=== PATIENT | female | born 1955 | race Caucasian/White ===

== ENCOUNTER 2024-01-19 11:58 | Inpatient (IN) | payer MEDICARE, OTHER, SELFPAY ==
[2024-01-19] VITALS (20 sets, daily range): BP systolic 77–121; BP diastolic 46–103; BMI 52.2; BMI 51.3
--- NOTE | 2024-01-19 09:54 | ED.GENMED ---
History of Present Illness
<Riana Piper PA-C - Last Filed: 01/21/24 16:40>
General
Chief Complaint: Heart Rate Problem
Source: patient
Exam Limitations: none
Time Seen by Provider: 01/19/24 09:29
Nursing documentation reviewed up to this point in time: agreed with
History of Present Illness
History of Present Illness:
68 y/o F with h/o TAVR here 2021
otherwise followed by infection control manager with [facility]
sent by Pulmonary for hypoxia and new onset afib
pt has h/o COPD and has been on nebs/inhalers for years
she recently int he past month has noticed that with simple activity, she is very out of breath and it takes her a little while to recover
she doesn't get exertional chest pain
thought maybe she had a temp las tnight but thermometer was normal
hasn't been checking pulse ox
she went to [employer] nd her sat was 87% on RA and pt was very sob
she had ekg showing afib
she has never been told she had afib before
she has had unintentional weight gain over the past 30 days but hasn't noticed edema in her legs
she is on lasix 80 mg daily
no h/o DVT/PE.
Past History
<Riana Piper PA-C - Last Filed: 01/21/24 16:40>
Past History
ED Past Medical History: Asthma, COPD, GERD, HTN, NIDDM and Valvular disease
ED Past Surgical History: Cardiac and Orthopedic
Social History
Tobacco: Non-smoker
Alcohol: Occasional
Drug: None
Personal:
Living: with family
Review of Systems
<Riana Piper PA-C - Last Filed: 01/21/24 16:40>
Review of Systems
Allergies reviewed?: Yes
All Other Systems: Not applicable
Phy Exam
<Riana Piper PA-C - Last Filed: 01/21/24 16:40>
Physical Exam
Physical Exam:
GENERAL: Moderate respiratory distress after activity, cyanotic appearance of her lips
EYE: pupils equal and reactive
NECK: Supple
ENT: o/p clr, mmm.
CARDIAC: Tachycardic, irregular, mild edema appreciated though body habitus makes it difficult
LUNGS: Tachypneic, hypoxic diminished throughout, no appreciated wheezes, some possible rales at the bases
ABDOMEN: Soft, without focal tenderness, no r/g, no cvat, normal bowel sounds
NEUROLOGICAL: Alert and oriented, no focal neuro deficits
SKIN: Warm and dry, skin intact.
MUSCULOSKELETAL: Mild edema, well perfused. neg tete's sign
PSYCH: Normal and appropriate interaction.
Scores
<Riana Piper PA-C - Last Filed: 01/21/24 16:40>
[id number] Score for Afib Stroke Risk
Age in Years (65=0, 65-74=1, >/=75=2): 65-74
Sex (Female=+1): Female
Congestive Heart Failure History (Yes=+1): Yes
Hypertension History (Yes=+1): Yes
Stroke/TIA/Thromboembolism History (Yes=+2): No
Vascular Disease History (Yes=+1): No
Diabetes Mellitus (Yes=+1): Yes
Score: 5
Anticoagulation Recommendations: Recommend anticoagulation (as validated in nonvalvular fib)
Course
<Riana Piper PA-C - Last Filed: 01/21/24 16:40>
Orders/Labs/Results
Orders:
Orders
01/19/24 09:17
Electrocardiogram (*1) Urgent
Reason for Study: Chest Pain
EKG- Treatment ONCE
01/19/24 09:44
Cardiac Monitoring- Treatment ONCE
IV Insert/Care/Rem.- Treatment PRN
O2 Therapy [RESP] Urgent
Titrate/Wean O2 to maintain O2 sat greater than (%): 93
Special Instructions: TO MAINTAIN CONTINUOUS O2 SATS >/= 93%
Pulse Ox/cont/shift [RESP] Urgent
Quantity: 1
Special Instructions: continuous pulse ox
01/19/24 09:48
CT Chest Pe Study Urgent
Comment:
Reason For Exam: new onset afib, hypoxia
01/19/24 09:50
CR Chest Portable - 1 View Urgent
Comment:
Reason For Exam: sob, hypoxia
Reason Study Needs to be Portable: Patient Unstable
01/19/24 09:51
Complete Blood Count/With Diff Urgent
Comprehensive Metabolic Panel Urgent
NT-proBNP Urgent
TSH Reflex To Free T4 Urgent
Comment: ADD ON
Troponin I Urgent
01/19/24 09:58
Diltiazem HCl [Cardizem] 10 mg IV NOW STA
01/19/24 10:54
Furosemide [Lasix] 40 mg IV NOW STA
01/19/24 11:26
Heparin 10,000 units IV NOW STA
Nursing to Place Non Medication Order As Directed
Physician Order: PTT 6 hours after initial start of Heparin infusion
Above order entered?: Yes
01/19/24 11:30
Heparin 98408 Units/250 ml 25,000 units in 250 ml IV PER PROTOCOL
Weight to be used for heparin protocol in kilograms (kg):: 146.6
Protocol:: DVT/PE
PTT Goal Range to be used:: PTT 73 to 111 seconds
Order type:: Initial
INITIAL Infusion Dose (UNITS/KG/hr) & then follow protocol:: 18 units/kg/hr
Infusion Dose in UNITS/hr & then follow protocol (UNITS/hr):: 2,000
INFUSION RATE in mL/hr & then follow protocol (mL/hr):: 20
For DVT/PE algorithm, re-bolus for low PTT?: Yes
PTT less than or equal to 64 seconds:: Re-bolus 80 units/kg (max 10,000units). Increase by 500 units/hr
(+ 5mL/hr)
PTT 64.1 to 72.9 seconds:: Re-bolus 40 units/kg (max 5,000 units). Increase by 300 units/hr
(+ 3mL/hr)
PTT 73 to 111 seconds:: Target Range. No change in rate.
PTT 111.1 to 130.9 seconds:: Decrease rate by 300 units/hr (- 3 mL/hr)
PTT 131 to 199.9 seconds:: HOLD for 1 hr. Then decrease by 400 units/hr (- 4mL/hr)
PTT greater than or equal to 200 seconds:: HOLD for 2 hrs & Notify Provider. Then decrease by 500 units/hr
(- 5mL/hr)
Lab follow-up:: Each change, PTT q6h until 2 consecutive are therapeutic. Then
PTT daily.
01/19/24 11:32
CARDIOLOGY CONSULT Routine
Consulting Provider: Chris Diallo
Was physician already notified: Yes
Reason for consult: aflutter with RVR, hypotension
01/19/24 11:38
PTT Urgent
Comment: Obtain baseline before beginning heparin infusion if not already collected
Prothrombin Time Urgent
Comment: ADD ON
01/19/24 11:45
Admit/Transfer Patient As Directed
Co-Sign Provider:
Level of Care: Inpatient admission
Assign to:: IMU- Intermediate Care
Physician / Group: John
Diagnosis: aflutter with RVR, hypotension
Reason for Hospitalization: aflutter with RVR, hypotension
Expected length of stay greater than two midnights?: Yes
ELOS- Estimated Length of Stay in days: 5
I certify the patient meets the requirements for IP care: Yes
PRN Pain Medication Management As Directed
May give lesser potent ordered pain med per pt: Yes
preference::
Protocol:: Medication orders for pain may be administered in a
manner that supports deferring to patient preference
when the pt is:
- Requesting an ordered lesser potent pain medication.
Least to most potent pain medications are defined
as: acetaminophen < NSAID < tramadol < opioids
(morphine, oxycodone, hydromorphone).
- Requesting a lesser dose of the same medication IF
ORDERED.
- Requesting a less intrusive route of administration
if both routes are prescribed by the provider (PO <
IV).
01/19/24 11:47
Add On- LAB Routine
Tests Added?: TSH with reflex to free T4
01/19/24 11:48
Code Status As Directed
Resuscitation Status: Full Code
01/19/24 14:20
Albuterol [ProAIR HFA INHALER] 2 puff INH R Q6HPRN PRN
Bisacodyl [Dulcolax] 10 mg RECTAL [id number] PRN
Dextrose 50%-Water [Dextrose 50% Syringe] 12.5 grams IV [id number] PRN
Docusate W/Senna [Senokot-S] 1 tablet PO BIDPRN PRN
Glucagon [GlucaGen] 1 mg IM PRN PRN
Polyethylene Glycol Powder [Miralax] 17 grams PO DAILYPRN PRN
01/19/24 14:20
Activity As Directed
Activity Level: With Assistance
Bedside Glucose Monitoring As Directed
Frequency: AC&HS
Additional Instructions:: Change to q6h if pt on TPN, tube feeding or not eating
Vital Signs As Directed
Frequency: Per unit guidelines
01/19/24 Dinner
2000 calorie (17 carb) Diabetic
At Your Request: Limited Participation
01/19/24 16:00
Albuterol Nebs [Ventolin Nebules] 2.5 mg INH R QID
01/19/24 16:30
Insulin Aspart Corrective Mod [Novolog Flexpen-Moderate Resistance] See Protocol SC AC
01/19/24 18:00
Aspirin Low Dose EC [Aspir Low (Enteric Coated)] 81 mg PO QPM
01/19/24 20:00
Budesonide [Pulmicort] 0.5 mg INH R BID
01/19/24 22:00
Amitriptyline [Elavil] 50 mg PO HS
01/20/24 04:26
Basic Metabolic Panel IN AM
Complete Blood Count/No Diff IN AM
Glycohemoglobin (HgbA1c) IN AM
Magnesium IN AM
01/20/24 08:00
Atorvastatin [Lipitor] 10 mg PO DAILY
Duloxetine Delayed Release [Cymbalta Delayed Release] 60 mg PO DAILY
Ferrous Sulfate [Feosol] 325 mg PO DAILY
Tiotropium [place] 2.5 Mcg [Spiriva Respimat 2.5 Mcg] 2 puff INH R DAILY
01/21/24 04:56
Basic Metabolic Panel IN AM
01/22/24 06:00
Basic Metabolic Panel IN AM
01/23/24 06:00
Basic Metabolic Panel IN AM
01/24/24 06:00
Basic Metabolic Panel IN AM
01/25/24 06:00
Basic Metabolic Panel IN AM
01/26/24 06:00
Basic Metabolic Panel IN AM
Abnormal Lab Results
01/19/24 01/19/24
09:51 11:38
RBC 5.70 H 10^6/uL
(4.20-5.40)
Hgb 18.5 H g/dL
(12.0-16.0)
Hct 56.0 H %
(37.0-47.0)
MCH 32.5 H pg
(27.0-31.0)
RDW 15.9 H %
(11.5-14.5)
MPV 10.7 H fL
(7.4-10.4)
Absolute Monos (auto) 0.8 H 10^3/uL
(0.1-0.6)
Lymphocytes % 19.9 L %
(20.5-51.1)
PT 15.0 H Sec
(11.4-14.6)
BUN 49 H mg/dl
(7-17)
Creatinine 1.2 H mg/dL
(0.6-1.0)
Glucose 132 H mg/dl
(70-99)
AST 45 H U/L
(14-36)
ALT 49 H U/L
(0-35)
Alkaline Phosphatase 169 H U/L
(38-126)
01/19/24 09:51
01/19/24 09:51
Vital Signs
Initial and Last Documented VS:
Initial Vital Signs
Temp Pulse Resp BP Pulse Ox
97.9 F 110 18 107/82 88
01/19/24 09:22 01/19/24 09:22 01/19/24 09:22 01/19/24 09:22 01/19/24 09:22
Last Documented Vital Signs
Temp Pulse Resp BP Pulse Ox
98.0 F 93 18 128/80 93
01/21/24 14:36 01/21/24 14:36 01/21/24 14:36 01/21/24 14:36 01/21/24 14:36
Maialt;Eric Cary, - Last Filed: 01/19/24 10:54>
Orders/Labs/Results
Orders:
Orders
01/19/24 09:17
Electrocardiogram (*1) Urgent
Reason for Study: Chest Pain
EKG- Treatment ONCE
01/19/24 09:44
Cardiac Monitoring- Treatment ONCE
IV Insert/Care/Rem.- Treatment PRN
O2 Therapy [RESP] Urgent
Titrate/Wean O2 to maintain O2 sat greater than (%): 93
Special Instructions: TO MAINTAIN CONTINUOUS O2 SATS >/= 93%
Pulse Ox/cont/shift [RESP] Urgent
Quantity: 1
Special Instructions: continuous pulse ox
01/19/24 09:48
CT Chest Pe Study Urgent
Comment:
Reason For Exam: new onset afib, hypoxia
01/19/24 09:50
CR Chest Portable - 1 View Urgent
Comment:
Reason For Exam: sob, hypoxia
Reason Study Needs to be Portable: Patient Unstable
01/19/24 09:51
Complete Blood Count/With Diff Urgent
Comprehensive Metabolic Panel Urgent
NT-proBNP Urgent
TSH Reflex To Free T4 Urgent
Comment: ADD ON
Troponin I Urgent
01/19/24 09:58
Diltiazem HCl [Cardizem] 10 mg IV NOW STA
01/19/24 10:54
Furosemide [Lasix] 40 mg IV NOW STA
01/19/24 11:26
Heparin 10,000 units IV NOW STA
Nursing to Place Non Medication Order As Directed
Physician Order: PTT 6 hours after initial start of Heparin infusion
Above order entered?: Yes
01/19/24 11:30
Heparin [id number] Units/250 ml 25,000 units in 250 ml IV PER PROTOCOL
Weight to be used for heparin protocol in kilograms (kg):: 146.6
Protocol:: DVT/PE
PTT Goal Range to be used:: PTT 73 to 111 seconds
Order type:: Initial
INITIAL Infusion Dose (UNITS/KG/hr) & then follow protocol:: 18 units/kg/hr
Infusion Dose in UNITS/hr & then follow protocol (UNITS/hr):: 2,000
INFUSION RATE in mL/hr & then follow protocol (mL/hr):: 20
For DVT/PE algorithm, re-bolus for low PTT?: Yes
PTT less than or equal to 64 seconds:: Re-bolus 80 units/kg (max 10,000units). Increase by 500 units/hr
(+ 5mL/hr)
PTT 64.1 to 72.9 seconds:: Re-bolus 40 units/kg (max 5,000 units). Increase by 300 units/hr
(+ 3mL/hr)
PTT 73 to 111 seconds:: Target Range. No change in rate.
PTT 111.1 to 130.9 seconds:: Decrease rate by 300 units/hr (- 3 mL/hr)
PTT 131 to 199.9 seconds:: HOLD for 1 hr. Then decrease by 400 units/hr (- 4mL/hr)
PTT greater than or equal to 200 seconds:: HOLD for 2 hrs & Notify Provider. Then decrease by 500 units/hr
(- 5mL/hr)
Lab follow-up:: Each change, PTT q6h until 2 consecutive are therapeutic. Then
PTT daily.
01/19/24 11:32
CARDIOLOGY CONSULT Routine
Consulting Provider: Chris Diallo
Was physician already notified: Yes
Reason for consult: aflutter with RVR, hypotension
01/19/24 11:38
PTT Urgent
Comment: Obtain baseline before beginning heparin infusion if not already collected
Prothrombin Time Urgent
Comment: ADD ON
01/19/24 11:45
Admit/Transfer Patient As Directed
Co-Sign Provider:
Level of Care: Inpatient admission
Assign to:: IMU- Intermediate Care
Physician / Group: John
Diagnosis: aflutter with RVR, hypotension
Reason for Hospitalization: aflutter with RVR, hypotension
Expected length of stay greater than two midnights?: Yes
ELOS- Estimated Length of Stay in days: 5
I certify the patient meets the requirements for IP care: Yes
PRN Pain Medication Management As Directed
May give lesser potent ordered pain med per pt: Yes
preference::
Protocol:: Medication orders for pain may be administered in a
manner that supports deferring to patient preference
when the pt is:
- Requesting an ordered lesser potent pain medication.
Least to most potent pain medications are defined
as: acetaminophen < NSAID < tramadol < opioids
(morphine, oxycodone, hydromorphone).
- Requesting a lesser dose of the same medication IF
ORDERED.
- Requesting a less intrusive route of administration
if both routes are prescribed by the provider (PO <
IV).
01/19/24 11:47
Add On- LAB Routine
Tests Added?: TSH with reflex to free T4
01/19/24 11:48
Code Status As Directed
Resuscitation Status: Full Code
01/19/24 14:20
Albuterol [ProAIR HFA INHALER] 2 puff INH R Q6HPRN PRN
Bisacodyl [Dulcolax] 10 mg RECTAL [id number] PRN
Dextrose 50%-Water [Dextrose 50% Syringe] 12.5 grams IV [id number] PRN
Docusate W/Senna [Senokot-S] 1 tablet PO BIDPRN PRN
Glucagon [GlucaGen] 1 mg IM PRN PRN
Polyethylene Glycol Powder [Miralax] 17 grams PO DAILYPRN PRN
01/19/24 14:20
Activity As Directed
Activity Level: With Assistance
Bedside Glucose Monitoring As Directed
Frequency: AC&HS
Additional Instructions:: Change to q6h if pt on TPN, tube feeding or not eating
Vital Signs As Directed
Frequency: Per unit guidelines
01/19/24 Dinner
2000 calorie (17 carb) Diabetic
At Your Request: Limited Participation
01/19/24 16:00
Albuterol Nebs [Ventolin Nebules] 2.5 mg INH R QID
01/19/24 16:30
Insulin Aspart Corrective Mod [Novolog Flexpen-Moderate Resistance] See Protocol SC AC
01/19/24 18:00
Aspirin Low Dose EC [Aspir Low (Enteric Coated)] 81 mg PO QPM
01/19/24 20:00
Budesonide [Pulmicort] 0.5 mg INH R BID
01/19/24 22:00
Amitriptyline [Elavil] 50 mg PO HS
01/20/24 04:26
Basic Metabolic Panel IN AM
Complete Blood Count/No Diff IN AM
Glycohemoglobin (HgbA1c) IN AM
Magnesium IN AM
01/20/24 08:00
Atorvastatin [Lipitor] 10 mg PO DAILY
Duloxetine Delayed Release [Cymbalta Delayed Release] 60 mg PO DAILY
Ferrous Sulfate [Feosol] 325 mg PO DAILY
Tiotropium [place] 2.5 Mcg [Spiriva Respimat 2.5 Mcg] 2 puff INH R DAILY
01/21/24 04:56
Basic Metabolic Panel IN AM
01/22/24 06:00
Basic Metabolic Panel IN AM
01/23/24 06:00
Basic Metabolic Panel IN AM
01/24/24 06:00
Basic Metabolic Panel IN AM
01/25/24 06:00
Basic Metabolic Panel IN AM
01/26/24 06:00
Basic Metabolic Panel IN AM
Abnormal Lab Results
01/19/24 01/19/24
09:51 11:38
RBC 5.70 H 10^6/uL
(4.20-5.40)
Hgb 18.5 H g/dL
(12.0-16.0)
Hct 56.0 H %
(37.0-47.0)
MCH 32.5 H pg
(27.0-31.0)
RDW 15.9 H %
(11.5-14.5)
MPV 10.7 H fL
(7.4-10.4)
Absolute Monos (auto) 0.8 H 10^3/uL
(0.1-0.6)
Lymphocytes % 19.9 L %
(20.5-51.1)
PT 15.0 H Sec
(11.4-14.6)
BUN 49 H mg/dl
(7-17)
Creatinine 1.2 H mg/dL
(0.6-1.0)
Glucose 132 H mg/dl
(70-99)
AST 45 H U/L
(14-36)
ALT 49 H U/L
(0-35)
Alkaline Phosphatase 169 H U/L
(38-126)
01/19/24 09:51
01/19/24 09:51
Vital Signs
Initial and Last Documented VS:
Initial Vital Signs
Temp Pulse Resp BP Pulse Ox
97.9 F 110 18 107/82 88
01/19/24 09:22 01/19/24 09:22 01/19/24 09:22 01/19/24 09:22 01/19/24 09:22
Last Documented Vital Signs
Temp Pulse Resp BP Pulse Ox
98.0 F 93 18 128/80 93
01/21/24 14:36 01/21/24 14:36 01/21/24 14:36 01/21/24 14:36 01/21/24 14:36
Maialt;Riana Piper PA-C - Last Filed: 01/21/24 16:40>
MDM/Problems Addressed
Differential Diagnosis Includes:
CHF, A-fib with RVR, PE, COPD
MDM/Problems Addressed:
68-year-old female with a history of a TAVR in 2021, COPD former smoker, no history of atrial fibrillation presents for from the pulmonary office after being told she has new onset A-fib seen on EKG today. She has been having exertional dyspnea
over the last month progressive to now where she can barely do any very minimal activity like getting dressed without being very winded. She is not checked her pulse ox but in the office today was 87% on room air. She has been followed by
infection control manager through [facility] and has not had a recent echocardiogram that she knows of.
Patient is not anticoagulated. She cannot identify when she could have gone into atrial fibrillation but she said the last month has been hard for her. She is had 30 pound weight gain despite actively trying to lose weight. 2 uses Lasix 80 mg
daily. On exam patient was very winded, cyanotic, hypoxic, diminished throughout but possibly with rales at her bases, given her body habitus difficult to appreciate edema in her legs which she likely has mild edema. Her portable chest x-ray was
not overwhelming for pulmonary edema, she may have mild CHF. Her BNP was 2700, EKG right bundle branch block, A-fib/flutter with RVR in the low 100s. Patient's heart rate variable from 100-1 30s. She is borderline hypotensive, in the low 100s.
Patient did well with a dose of 10 mg of Cardizem improving her rate to the 80s. She will have a PE study to prove no PE but she will require anticoagulation, admission for CHF in the setting of A-fib, will require echocardiogram.
<Eric Cary DO - Last Filed: 01/19/24 10:54>
*Critical Care Note
Total Time (30-74mins, 75-104mins- exclusive of procedures): 45 min
comment:
The with rates in the 130s. She was emergently given Cardizem bolus and vital signs closely monitored. Will also emergently diurese by IV as she is hypoxic. Closely monitoring respiratory status. Will hold BiPAP for now. She has not tolerated
CPAP in the past.
ED Attending Note
<Riana Piper PA-C - Last Filed: 01/21/24 16:40>
-
Portions of this chart may have been created with voice recognition software.� Occasional wrong word or��sound alike� substitutions may have occurred due to the inherent limitations of voice recognition software.
<Eric Cary, DO - Last Filed: 01/19/24 10:54>
ED Attending Note
Patient seen and examined by attending physician: Yes
I performed the substantive portion of visit, reviewed & personally made and approve the management plan that is documented in note by myself or KADY.: Yes
I performed a history and physical exam of patient and discussed management with resident, I reviewed resident's note and agree with documented findings and plan of care.: Yes
ED Attending Note:
I evaluated the patient at bedside. BNP is 2650, she does have some decreased breath sounds at the bases�will plan diuresis by IV and admission to the hospital. Her heart rate has improved after one-time dose of Cardizem. Family states that her
blood pressure 'is normally low'. She also reports a 30 pound unintentional weight gain over the past 1 month after losing 90 pounds intentionally. After Cardizem bolus was given, she is in atrial flutter on the monitor.
Discharge Plan
Departure
Patient Disposition: Admit
Date of Disposition: 01/19/24
Time of Disposition: 11:02
Admit to: IVU
Presentation/result/management discussed w/ accepting MD/DO: Hospitalist
Condition: Fair
Covid-19: Not Applicable
Discharge Problem:
Atrial fibrillation, new onset, CHF (congestive heart failure)
Interventions
Interventions:
*Risk Screen - Suicide Last Done: 01/19/24 09:22
*General Assessment Last Done: 01/19/24 09:22
*Neglect/Abuse Screening Last Done: 01/19/24 09:22
ED- Fall Risk Assessment Last Done: 01/19/24 09:49
*ED COVID-19 Vaccine History Last Done: 09/18/24 09:49
*Nursing Disposition Last Done: 01/19/24 14:24
ED- Cardiac Assessment Last Done: 01/19/24 09:49
ED- Pulmonary Assessment Last Done: 01/19/24 09:49
Discharge Date and Time
Discharge Date/Time: 01/19/24 14:24
[2024-01-19 10:10] LABS: % Eosinophils 1.9 % (0-6); % Immature Granulocytes 0.4 % (0-0.5); % Lymphocytes 19.9 % (20.5-51.1); % Monocytes 8.1 % (1.7-9.3); % Neutrophils 68.7 % (42.2-75.2); Absolute Basophils 0.1 10^3/uL (0-0.2); Absolute Eosinophils 0.2 10^3/uL (0-0.7); Absolute Lymphocytes 1.9 10^3/uL (1.2-3.4); Absolute Monocytes 0.8 10^3/uL (0.1-0.6); Absolute Neutrophils 6.4 10^3/uL (1.4-6.5); Hemoglobin 18.5 g/dL (12.0-16.0); Mean Corpuscular Hgb 32.5 pg (27.0-31.0); Mean Corpuscular Volume 98.2 fL (81.0-99.0); Mean Platelet Volume 10.7 fL (7.4-10.4); Nucleated Red Blood Cells % 0 %; Platelet Count 250 10^3/uL (130-400); Red Cell Dist. Width 15.9 % (11.5-14.5); White Blood Cell Count 9.4 10^3/uL (4.8-10.8)
[2024-01-19] MEDS: CARDIZEM 10 MG IV (10:17)
[2024-01-19 10:31] LABS: ALT (SGPT) 49 U/L (0-35); AST (SGOT) 45 U/L (14-36); Albumin 4.6 g/dl (3.5-5.0); Alkaline Phosphatase 169 U/L (38-126); Blood Urea Nitrogen 49 mg/dl (7-17); Calcium 10.1 mg/dl (8.4-10.2); Carbon Dioxide 22 mmol/L (22-30); Chloride 101 mmol/L (98-107); Estimated Creatinine Clearance 65 ml/min; Glucose 132 mg/dl (70-99); Potassium 4.5 mmol/L (3.5-5.1); Sodium 140 mmol/L (135-145); Total Bilirubin 1.2 mg/dl (0.2-1.3); Total Protein 7.6 g/dl (6.3-8.2)
[2024-01-19 10:40] LABS: NT-proBNP 2650 pg/ml; Troponin I < 0.012 ng/ml
--- NOTE | 2024-01-19 11:40 | CON.CAR ---
Addendum entered and electronically signed by Chris Diallo MD 01/19/24 17:15:
68 yo female with PMH of chronic HFPEF, TAVR, COPD, untreated CHAS, morbid obesity is admitted with CALHOUN and hypoxia. She does not report SOB at rest. Exam with irregular rhythm, no murmurs, trace LE. Cr 1.2. Tele and EKG show atrial flutter
(typical). Echo shows LVEF 70-75%, normal TAVR function, dilated RV with RV dysfunction. CT PE: no PE.
CALHOUN, hypoxia. Multifactorial with COPD and acute cor pulmonale. BP is better. Start lasix 40mg IV bid, and titrate.
Atrial flutter. New. Unknown duration. Will focus on rate control. She already took Toprol XL 100mg this AM. Will add 50mg PM dose. Start eliquis 5mg bid.
Hold home amlodipine and lisinopril to allow for Toprol XL titration.
Original Note:
Consultation
Consultation Request
Date/Time Consultation Requested: 01/19/24 1132
Date/Time Consultation Performed: 01/19/24 1145
Requesting Provider: Dr. Lopez
Performing Provider: Ngoc JUAREZ for Dr. Diallo
Reason for Consultation: atrial flutter
Medical History
-
Chief Complaint: SOB, hypoxia, arrhythmia
History of Present Illness:
68 y/o female with obesity, s/p TAVR (04/2022), HTN, untreated sleep apnea, DM, HFpEF, COPD, and restrictive lung disease who was sent by pulmonary for hypoxia (71% per family) and new onset atrial flutter. She has had SOB for about 1 month and
weight gain of about 30 lbs this summer (lost about 90 with diet this year, but then stopped dieting over the summer), and has noted BLE edema. In the ER she was given a dose of IV diltiazem. BP is on low end. CT scan shows no PE. Dr. Otero is
auditor internal. Patient is in no distress at the time of my assessment.
Past Medical History
Past Medical History: CHF, HTN, NIDDM, Valvular Disease and Other (restrictive airway disease, obesity, sleep apnea)
Social History
Tobacco: Former Smoker
Personal:
Living: With Family
Family History
Family History: Reviewed & Not Pertinent
Allergies / Home Medications
Allergy/AdvReac Type Severity Reaction Status Date / Time
amoxicillin trihydrate Allergy patient Verified 01/19/24 09:22
[From Augmentin] states
severe
nausea and
intestinal
pain
cat dander Allergy Sinus Verified 01/19/24 09:22
congestion
cigarette smoke Allergy Positive Verified 01/19/24 09:22
skin test
to tobacco
dog dander Allergy Sinus Verified 01/19/24 09:22
congestion
grass pollen Allergy Sinus Verified 01/19/24 09:22
congestion,
cough
levofloxacin [From Levaquin] Allergy GI Symptoms Verified 01/19/24 09:22
mold Allergy Sinus Verified 01/19/24 09:22
congestion,
cough
Sulfa (Sulfonamide Allergy INTESTINAL Verified 01/19/24 09:22
Antibiotics) PAIN
tree and shrub pollen Allergy Sinus Verified 01/19/24 09:22
congestion,
cough
�Medication �Instructions �Recorded �Confirmed �Type
amitriptyline 25 mg tablet 50 mg PO HS Mental Health/Anxiety 03/05/09 01/19/24 History
duloxetine 60 mg capsule,delayed 60 mg PO DAILY Mental 01/11/14 01/19/24 History
release Health/Anxiety
atorvastatin 10 mg tablet 10 mg PO DAILY High cholesterol 02/10/22 01/19/24 History
glipizide 2.5 mg tablet, extended 2.5 mg PO BID Diabetes 02/10/22 01/19/24 History
release 24 hr
metformin 500 mg tablet 500 mg PO BID Diabetes 02/10/22 01/19/24 History
metoprolol succinate 50 mg 100 mg PO DAILY Blood pressure 02/10/22 01/19/24 History
tablet,extended release 24 hr
revefenacin 175 mcg/3 mL solution 175 mcg inhalation R DAILY 02/10/22 01/19/24 History
for nebulization (Yupelri) Lung/breathing issues
tramadol 50 mg tablet 50 mg PO TIDPRN PRN MODERATE pain 02/10/22 01/19/24 History
arformoterol 15 mcg/2 mL solution 2 ml inhalation R BID 04/02/22 01/19/24 History
for nebulization (Brovana) Lung/breathing issues
aspirin 81 mg tablet,delayed 81 mg PO QPM Blood clot 04/02/22 01/19/24 History
release prevention/tx
budesonide 0.5 mg/2 mL suspension 0.5 mg inhalation R BID 04/02/22 01/19/24 History
for nebulization Lung/breathing issues
cyanocobalamin (vitamin B-12) 2,500 mcg sublingual DAILY 04/02/22 01/19/24 History
2,500 mcg sublingual tablet Supplement
(Vitamin B-12)
ferrous sulfate 325 mg (65 mg 325 mg PO DAILY Supplement 04/02/22 01/19/24 History
iron) tablet (iron)
lisinopril 20 mg tablet 20 mg PO BID Blood pressure 04/02/22 01/19/24 History
multivitamin 1 tab PO DAILY Supplement 04/02/22 01/19/24 History
calcium carbonate 500 mg-vitamin 500 mg PO DAILY Supplement 04/08/22 01/19/24 History
D3 5 mcg (200 unit) tablet (Oyster
Shell Calcium-Vitamin D3)
albuterol sulfate 90 mcg/actuation 2 puff inhalation R Q6HPRN PRN SOB 01/19/24 01/19/24 History
aerosol inhaler
amlodipine 5 mg tablet (Norvasc) 5 mg PO DAILY 01/19/24 01/19/24 History
biotin 10,000 mcg chewable tablet 10,000 mcg PO DAILY 01/19/24 01/19/24 History
(Hair, Skin and Nails (biotin))
furosemide 20 mg tablet 40 mg PO BID 01/19/24 01/19/24 History
zolpidem 10 mg tablet (Ambien) 10 mg PO HS 01/19/24 01/19/24 History
Review of Systems
-
History Source: Patient
All other systems: Negative unless noted
Constitutional: Weight Gain
Respiratory: Trouble Breathing
Physical Exam
Vital Signs
Temp Pulse Resp BP Pulse Ox
97.9 F 118 18 85/64 92
01/19/24 09:22 01/19/24 11:35 01/19/24 11:35 01/19/24 11:19 01/19/24 11:38
Lab Results
01/19/24 09:51
01/19/24 09:51
Troponin I < 0.012 ng/ml 01/19/24 09:51
Tcf-H-Twmukroktxi Pept 2650 pg/ml 01/19/24 09:51
Physical Exam
General: Well Developed, Well Nourished and No Apparent Distress
HEENT: Normocephalic and Anicteric
Respiratory: Other (on O2 by NC)
Neuro: Awake, Alert and Oriented
Psych: Calm
Impression / Plan
-
SOB, hypoxia:
-requiring O2 by NC
-likely multifactorial in this patient with CHF, obesity, lung disease, and atrial flutter.
Atrial flutter, typical:
-new diagnosis, onset unclear
-rate about 100 BPM on personal manual review. Of note, administrative fellow is reading flutter waves as QRS waves at times, making the rate look faster.
-continue metoprolol
-[id number] score is 5 for age, female, DM, HTN, and CHF. Eliquis to be initiated.
-will discuss rhythm plan
-we discussed that untreated sleep apnea is a factor in this heart rhythm, and that she should reassess treatment plan with pulmonary. She says the masks scare her. Otherwise, she should resume weight loss efforts as planned.
-check thyroid test
Vuetl-[id number] HFpEF:
-BNP elevated, weight up, CXR suggestive excess fluid, LE edema noted
-I think she needs IV lasix, but BP is low so lets check echo first
-CHF education
-patient is on Lasix 80 mg daily as OP. There has been dietary indiscretion.
Obesity:
-severe
-would benefit from weight loss moving forward- she plans to resume diet
s/p TAVR:
-stable by most recent echo, but will update
HTN:
-BP is on low end, checking echo
-on CCB, ACEI, BB as OP- hold CCB/ACEI for now.
-hopefully can continue metoprolol, but already took this AM
Data Reviewed
-
EKG: Tracing Personally Visualized and interpreted (Atrial flutter 100 BPM)
Radiology: Report Reviewed by me (CXR: Mild pulmonary edema. No definite pleural effusion.)
Medical Tests (Nuc Med, Echo etc): Report Reviewed by me (Echo 05/01/22: Estimated LVEF 65-70%. Moderate concentric left ventricular hypertrophy. Stage I diastolic dysfunction. s/p TAVR 29 mm Medtronic Evolut. Peak/mean gradients across the aortic
valve are 42/24 mmHg.)
Labs: Labs Reviewed by me
[2024-01-19 12:00] LABS: APTT 27.9 Sec (23.4-35.0)
[2024-01-19] MEDS: HEPARIN 25000 UNITS/250 ML IV ×2 (12:14→15:49)
[2024-01-19] MEDS: HEPARIN 10000 UNITS IV (12:15)
--- NOTE | 2024-01-19 12:49 | EDRN ---
heparin gtt d/c'ed. this rn d/c'ed gtt @ this time.
[2024-01-19 13:28] LABS: TSH Reflex To Free T4 4.59 uIU/ml (0.47-4.68)
[2024-01-19 13:34] LABS: INR 1.18
--- NOTE | 2024-01-19 14:11 | W.PN.UPDATE ---
Update Note
Progress Note Update
I personally performed a history and physical exam of the patient and discussed management with the resident. I reviewed the resident's note and agree with the documented findings and plan of care HPI/CC.
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 At her ticket maker office she was found to be (reportedly) in atrial fibrillation with a rapid ventricular response. She was
also hypoxemic and in the 70s on room air. In the ER the patient was found to be in atrial flutter with rapid ventricular response. She was given a dose of 10 mg of IV Cardizem. She developed asymptomatic hypotension. At the time of my
evaluation the patient denies chest pain or shortness of breath.
94/59, 120, 17, 97.9 �F, 92% 6L NC O2
Gen: NAD, AAOx3.
Eyes: EOMI, PERRLA, no scleral icterus.
Neck: supple.
CV: tachy, irreg/irreg, +S1/S2, no m/r/g.
Resp: Diffusely coarse breath sounds which are likely upper airway transmission, faint rales in the bases
Abd: +BS, soft, NT, ND
Skin: No rashes. 2+ B/L LE edema
Neuro: CN 2-12 intact, non-focal.
Psych: Normal mood and affect.
Lab Results
01/19/24 01/19/24
09:51 11:38
WBC 9.4
RBC 5.70 H
Hgb 18.5 H
Hct 56.0 H
MCV 98.2
MCH 32.5 H
MCHC 33.0
RDW 15.9 H
Plt Count 250
MPV 10.7 H
Abs Immat Gran (auto) 0.0
Absolute Neuts (auto) 6.4
Absolute Lymphs (auto) 1.9
Absolute Monos (auto) 0.8 H
Absolute Eos (auto) 0.2
Absolute Basos (auto) 0.1
Immature Gran % 0.4
Neutrophils % 68.7
Lymphocytes % 19.9 L
Monocytes % 8.1
Eosinophils % 1.9
Basophils % 1.0
Nucleated RBC % 0
PT 15.0 H
INR 1.18
APTT 27.9
Sodium 140
Potassium 4.5
Chloride 101
Carbon Dioxide 22
BUN 49 H
Creatinine 1.2 H
Estimated Creat Clear 65
eGFR 48.70
Glucose 132 H
Calcium 10.1
Total Bilirubin 1.2
AST 45 H
ALT 49 H
Alkaline Phosphatase 169 H
Troponin I < 0.012
Rpv-Y-Vyjecxwrtsg Pept 2650
Total Protein 7.6
Albumin 4.6
TSH (Reflex) 4.59
CTA chest: No evidence of pulmonary embolism or active pulmonary process. Bilateral hilar lymphadenopathy. It is difficult to evaluate for hilar lymphadenopathy on the previous CT from 09/09/2022 given the absence of intravenous contrast on this
exam. Mediastinal lymphadenopathy is unchanged. Dilated pulmonary arterial system which can be seen in the setting of pulmonary arterial hypertension.
Atrial flutter with rapid ventricular response:
-Complicated by hypotension
-On reevaluation the patient systolic blood pressure had been in the 100s on a few readings. Heart rate was 90s to 100s.
-Cardiology to see
-Check echocardiogram
-As patient without acute pulmonary embolism continue stroke prevention anticoagulation with Eliquis 5 mg twice daily
-Will discuss amiodarone with cardiology
-proBNP 2650. Patient has acute hypoxemic respiratory failure. Patient was not on oxygen prior to admission. She has underlying COPD as well as morbid obesity due to excess calories. She likely has CHAS/OHS. All of these factors are contributing
to her acute hypoxemic respiratory failure. She also likely has acute CHF due to atrial flutter with a right ventricular response. It is difficult to diurese the patient with her current systolic blood pressures ranging 80-100s.
-daily wts, I/Os
--- NOTE | 2024-01-19 14:49 | HPS.HSE ---
Family Physician
-
Family Physician: Sanjay Carrera
Chief Complaint
-
Shortness of Breath, Afib (new onset)
History of Present Illness
Carlos Lindsey is a 68 year old female with a past medical history of COPD, HTN, HLD, NIDDM, CHAS, valvular Disease s/p TAVR 2021 and Anxiety who presented to the ED after an ECG reading at a neurology stroke physician appointment demonstrated Afib/Flutter.
She reports that over the last month her family has been noticing a decline in her health, and extra swelling in her legs. She herself reports that only in the last few weeks she has been feeling more winded and more unstable on her feet. Her
, who was bedside during the encounter, endorsed a blue discoloration of the lips during episodes of 'not feeling well'. During these times, blood pressure readings would indicate low pressure and a fast pulse. Though, the patient herself did
not notice any chest pain, palpitations, lightheadedness or presyncope/syncope during these events. Of note, the patient reports a 90lb weight loss over the past 2 years with a ketogenic diet; however, after recently stopping the diet and reverting
to eating ad jesse, she has since gained back 30lbs in only a few months. There have been no new changes to medications and no recent illness. On further questioning, she admits to having CHAS and being noncompliant with CPAP machine for many years.
Concerned for the episodes of tachycardia and increasing shortness of breath, she had scheduled a visit to the neurology stroke physician which led to the ECG demonstrating 'Afib'.
In the ED she was found to be in A Flutter w/ RVR and hypoxic on RA into the 70s. She was given 10mg IV Cardizem after which she developed asymptomatic hypotension. She was put on 6L NC with saturations above 92%.
Medical History
Past Medical History
Past Medical History: Reports COPD, CVA (CT Head findings suggestive of prior CVA without hositalization/tx), HTN, NIDDM and Other (Hyperlipidemia)
Past Surgical History: Reports Cardiac (TAVR 2021)
Social History
Tobacco: Former Smoker (quit 1999, had been smoking >1pack/day since she was 10)
Alcohol: Occasional
Drug: None
Personal:
Living: With Family
Family History
Family History: Not pertinent
Allergies / Home Medications
Allergies reflects when Allergies were last updated in [facility].
Home Medications with original date entered in [facility]
Allergy/Medication List:
Allergies
Allergy/AdvReac Type Severity Reaction Status Date / Time
amoxicillin trihydrate Allergy patient Verified 01/19/24 09:22
[From Augmentin] states
severe
nausea and
intestinal
pain
cat dander Allergy Sinus Verified 01/19/24 09:22
congestion
cigarette smoke Allergy Positive Verified 01/19/24 09:22
skin test
to tobacco
dog dander Allergy Sinus Verified 01/19/24 09:22
congestion
grass pollen Allergy Sinus Verified 01/19/24 09:22
congestion,
cough
levofloxacin [From Levaquin] Allergy GI Symptoms Verified 01/19/24 09:22
mold Allergy Sinus Verified 01/19/24 09:22
congestion,
cough
Sulfa (Sulfonamide Allergy INTESTINAL Verified 01/19/24 09:22
Antibiotics) PAIN
tree and shrub pollen Allergy Sinus Verified 01/19/24 09:22
congestion,
cough
Review of Systems
-
History Source: Patient and Family
A 12 point ROS was completed and negative except as noted: Yes
Constitutional: Reports Weight Gain; Denies Fever, Night Sweats or Chills
EENT: Reports No Symptoms
Respiratory: Reports Trouble Breathing
Cardiac: Reports No Symptoms
Abdomen/GI: Reports No Symptoms
: Reports No Symptoms
Musculoskeletal: Reports No Symptoms
Skin: Reports No Symptoms
Neurological: Reports No Symptoms
Endocrine: Reports No Symptoms
Hematologic/Lymphatic: Reports No Symptoms
Psych: Reports No Symptoms
Physical Exam
Vital Signs
Vital Signs
Temp Pulse Resp BP Pulse Ox
97.9 F 100 20 114/78 93
01/19/24 09:22 01/19/24 14:20 01/19/24 14:20 01/19/24 14:00 01/19/24 14:24
Physical Exam
General: Well Developed, Well Nourished, No Apparent Distress, Comfortable, Conversant and Morbidly Obese
HEENT: NormoCephalic, Anicteric, Moist mucous membranes, Atraumatic, PERRLA and [place] Conjunctivae
Respiratory: Rhonchi
Cardiac: S1/S2, Irregular Rhythm and Tachycardia; No Murmur
Breast: Deferred by me
GI: Soft, Non Tender, Non Distended and Normal Bowel Sounds
Rectal: Deferred by Provider
Genito-urinary: Deferred by me
Musculoskeletal: No Clubbing, No Cyanosis, Edema, Left Lower Extremity and Edema, Right Lower Extremity
Neuro: Awake, Alert, Oriented, Nonfocal/grossly intact and No Sensory Deficits
Psych: Calm
Laboratory Results
-
01/19/24 09:51
01/19/24 09:51
Laboratory Results
PT 15.0 Sec (11.4-14.6) H 01/19/24 11:38
INR 1.18 01/19/24 11:38
APTT 27.9 Sec (23.4-35.0) 01/19/24 11:38
Total Bilirubin 1.2 mg/dl (0.2-1.3) 01/19/24 09:51
AST 45 U/L (14-36) H 01/19/24 09:51
ALT 49 U/L (0-35) H 01/19/24 09:51
Alkaline Phosphatase 169 U/L (38-126) H 01/19/24 09:51
Troponin I < 0.012 ng/ml 01/19/24 09:51
Impression/Plan
-
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
#New onset A Flutter w/ RVR
- initially hypotensive, pressures better now in the 100s
- Echocardiogram demonstrates EF 70-75%, normal TAVR function, dilated RV with RV dysfunction.
- CT Chest showed no evidence of PE.
- Begin Lasix 40mg IV BID, trend daily weights, I/Os
- Recommendation to focus on rate control; Start on Toprol XL 100mg AM and 50mg PM. Hold home antihypertensives Lisinopril/Amlodipine to allow titration of Toprol
- Start Eliquis 5mg BID for PPx
#COPD - c/w home Spiriva, Nebulizers
#HTN - hold home medications as above.
#HLD - c/w statin
#NIDDM - LDISS while here. Hold home PO meds.
#Anxiety - c/w home Duloxetine.
#Dispo - IMU
#Diet - Diabetic Diet
#DVT PPx - On Eliquis
#Code Status - Full Code
--- NOTE | 2024-01-19 15:05 | CARDSERVLU ---
Echocardiogram with Lumason completed after protocol screening completed. Allergies verified.
Patent IV site: __R AC___
IV site flushed with 0.9% NaCl pre and post administration.
Diluted bolus method utilized to enhance visualization of ventricular kurtz.
Total volume given: ___2.5_ mL
Patient tolerated all procedures well without complications.
[2024-01-19 16:05] LABS: Hematocrit 49.5 % (37.0-47.0); Hemoglobin 16.4 g/dL (12.0-16.0); Mean Corp Hgb Conc. 33.1 g/dL (33.0-37.0); Mean Corpuscular Hgb 31.5 pg (27.0-31.0); Mean Corpuscular Volume 95.2 fL (81.0-99.0); Mean Platelet Volume 11.2 fL (7.4-10.4); Platelet Count 223 10^3/uL (130-400); Red Cell Dist. Width 15.7 % (11.5-14.5); White Blood Cell Count 8.1 10^3/uL (4.8-10.8)
[2024-01-19 16:17] LABS: APTT 29.2 Sec (23.4-35.0)
[2024-01-19] MEDS: VENTOLIN NEBULES 2.5 MG INH ×2 (16:21→20:13)
[2024-01-19] MEDS: ASPIR LOW (ENTERIC COATED) 81 MG PO (17:20)
[2024-01-19] MEDS: LASIX 40 MG IV (17:20)
[2024-01-19] MEDS: NOVOLOG FLEXPEN-MODERATE RESISTANCE SC (18:10)
[2024-01-19 18:14] LABS: Glucose - Point of Care 73 mg/dl (70-99)
[2024-01-19] MEDS: PULMICORT 0.5 MG INH (20:13)
--- NOTE | 2024-01-19 20:30 | PTCARENOTE ---
Assumed care of patient at 1900, nursing assessment completed and as documented. Patient on 6L NC, humidifier placed by RT, remains in uncontrolled Afib on monitor rates 100-130's. Received patient on heparin gtt, order to d/c gtt at 1900 following
administration of first dose of 5mg PO Eliquis. Eliquis given - see MAR, heparin gtt d/c'd at this time. See worklist for charting. VSS, call avitia within reach, care ongoing.
[2024-01-19] MEDS: TOPROL XL 50 MG PO (20:38)
[2024-01-19] MEDS: ELIQUIS 5 MG PO (20:38)
[2024-01-19] MEDS: ELAVIL 50 MG PO (20:38)
[2024-01-19 22:50] LABS: Glucose - Point of Care 134 mg/dl (70-99)
[2024-01-20] VITALS (12 sets, daily range): BP systolic 87–115; BP diastolic 65–88; BMI 50.3
[2024-01-20] MEDS: MELATONIN 5 MG PO (00:57)
[2024-01-20 04:41] LABS: Hematocrit 47.9 % (37.0-47.0); Hemoglobin 15.9 g/dL (12.0-16.0); Mean Corp Hgb Conc. 33.2 g/dL (33.0-37.0); Mean Corpuscular Hgb 31.4 pg (27.0-31.0); Mean Corpuscular Volume 94.5 fL (81.0-99.0); Mean Platelet Volume 10.5 fL (7.4-10.4); Platelet Count 229 10^3/uL (130-400); Red Blood Cell Count 5.07 10^6/uL (4.20-5.40); Red Cell Dist. Width 15.7 % (11.5-14.5); White Blood Cell Count 8.8 10^3/uL (4.8-10.8)
[2024-01-20 05:20] LABS: Blood Urea Nitrogen 46 mg/dl (7-17); Calcium 9.2 mg/dl (8.4-10.2); Carbon Dioxide 21 mmol/L (22-30); Chloride 104 mmol/L (98-107); Estimated Creatinine Clearance 76 ml/min; Glucose 118 mg/dl (70-99); Potassium 3.9 mmol/L (3.5-5.1); Sodium 140 mmol/L (135-145); eGFR > 60.00
[2024-01-20] MEDS: VENTOLIN NEBULES 2.5 MG INH ×4 (07:21→20:13)
[2024-01-20] MEDS: SPIRIVA RESPIMAT 2.5 MCG 2 PUFF INH (07:21)
[2024-01-20] MEDS: PULMICORT 0.5 MG INH ×2 (07:21→20:13)
[2024-01-20 08:04] LABS: Glucose - Point of Care 115 mg/dl (70-99)
--- NOTE | 2024-01-20 08:40 | W.PN.HOSP.TC ---
Addendum entered and electronically signed by Jeffry Lopez MD 01/20/24 09:30:
I saw and evaluated the patient. I reviewed the resident�s note and agree with findings and plan as documented in the resident�s note.
Patient currently denies chest pain or shortness of breath.
94/69, 98, 18, 97.5 �F, 89% 6L NC O2
Gen: NAD, AAOx3.
Eyes: EOMI, PERRLA, no scleral icterus.
Neck: supple.
CV: tachy, regular rhythm, +S1/S2, no m/r/g.
Resp: CTAB
Abd: +BS, soft, NT, ND
Skin: No rashes. 1-2+ B/L LE edema
Neuro: CN 2-12 intact, non-focal.
Psych: Normal mood and affect.
Echo: Contrast was used. Hyperdynamic left ventricular systolic function. LV ejection fraction is 70- 75%.
Mild mitral stenosis.
s/p TAVR 29 mm Medtronic Evolut. Peak/mean gradients across the aortic valve
are 8/5 mmHg. No aortic regurgitation.
Enlarged right ventricular size. Reduced right ventricular systolic function.
Septal flattening in systole and diastole consistent with RV pressure and
volume overload.
Mild tricuspid regurgitation.
Moderately elevated PASP. Estimated pulmonary artery pressure of 45-50 mmHg
assuming a right atrial pressure of 15 mmHg.
Compared to 05/01/22: RV dysfunction is now present. PASP was unable to be
measured on prior study.
CTA chest: No evidence of pulmonary embolism or active pulmonary process. Bilateral hilar lymphadenopathy. It is difficult to evaluate for hilar lymphadenopathy on the previous CT from 09/09/2022 given the absence of intravenous contrast on this
exam. Mediastinal lymphadenopathy is unchanged. Dilated pulmonary arterial system which can be seen in the setting of pulmonary arterial hypertension.
Atrial flutter (new onset) with rapid ventricular response:
-Complicated by hypotension
-ehco above and with RV failure
-cont IV Lasix and BB even with SBPs 90s, discussed with cardiology
-if patient with persistent tachycardia and hypotension, may need to load with digoxin
-cont Eliquis
-proBNP 2650. Patient has acute hypoxemic respiratory failure. Patient was not on oxygen prior to admission. She has underlying COPD as well as morbid obesity due to excess calories. She likely has CHAS/OHS. All of these factors are contributing
to her acute hypoxemic respiratory failure. She also likely has acute HFpEF due to atrial flutter with a right ventricular response. She also has pulmonary hypertension and right-sided heart failure which is contributing to her acute hypoxemic
respiratory failure. Considering the patient's multifactorial acute hypoxemic respiratory failure, some of which is a primarily pulmonary in nature, reasonable to consult pulmonary.
-daily wts, I/Os
Morbid obesity due to excess calories:
-Encourage weight loss
-Affects all aspects of care
Total time spent on today's encounter was 50 minutes which included time spent in counseling the patient/family regarding diagnosis and treatment plan as listed above, goals of care, and symptom management. Case was discussed with nursing staff,
specialists, and care coordinators/case management. All labs and imaging personally reviewed by me. Remainder the time spent in detailed review of previous records, lab data, imaging, and other medical provider documentation.
Original Note:
Today's Communication/Plan
-
C/w IV lasix, rate control with Toprol XL, try to wean O2 as tolerated.
Assessment / Plan
Assessment / Plan
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
#New onset A Flutter w/ RVR
- initially hypotensive, systollic pressures better now in the 100s
- Echocardiogram demonstrates EF 70-75%, normal TAVR function, dilated RV with RV dysfunction.
- CT Chest showed no evidence of PE.
- C/w Lasix 40mg IV BID, trend daily weights, I/Os
- Recommendation to focus on rate control; Start on Toprol XL 100mg AM and 50mg PM. Hold home Lisinopril/Amlodipine to allow titration of Toprol (HR have been 90s-120s, with >100bpm readings most at night, possible consequence of CHAS).
- C/w Eliquis 5mg BID for PPx
#Acute Hypoxic Respiratory Failure
- O2 saturations on admission in the 70s on RA. Requiring 6L NC to maintain saturations >92%
- TRy to wean O2 requirements as tolerated to maintain saturations 88-92%
#COPD - c/w home Spiriva, Nebulizers
#HTN - hold home antihypertensives as above.
#HLD - c/w statin
#NIDDM - LDISS while here. Hold home PO meds.
#Anxiety - c/w home Duloxetine, amitriptyline
#Dispo - IMU
#Diet - Diabetic Diet
#DVT PPx - On Eliquis
#Code Status - Full Code
Anticipated Discharge: Within 24 hours
Subjective/Interval History
-
No acute events overnight. She is currently complaining of muscle spasms in the back. No symptoms of chest pain, SOB, palpitations, or dizziness.
Objective Data
-
Labs:
Laboratory Results
01/20/24
04:26
WBC 8.8
Hgb 15.9
Hct 47.9 H
Plt Count 229
Sodium 140
Potassium 3.9
Chloride 104
Carbon Dioxide 21 L
BUN 46 H
Creatinine 1.0
Glucose 118 H
Calcium 9.2
Vital Signs:
Vital Signs
Temp Pulse Resp BP Pulse Ox
97.4 F 98 18 94/69 89
01/20/24 04:35 01/20/24 06:27 01/20/24 06:27 01/20/24 06:27 01/20/24 02:02
I&O
01/19/24 01/20/24 01/21/24
06:59 06:59 06:59
Output Total 550 / 550
Balance -550 / -550
Review of Systems
-
History Source: Patient
All other systems: Reviewed and negative
Musculoskeletal: Reports Muscle Pain (Lower back spasms/pain)
Physical Exam
-
General: Well Developed, Well Nourished, No Apparent Distress, Comfortable, Conversant and Morbidly Obese
HEENT: Normocephalic, Atraumatic, Moist Mucous Membranes, [place] Conjunctivae and PERRLA
Respiratory: Rales (BL Lower lung lui, improved from yesterday)
Cardiac: S1/S2, Irregular Rhythm and Tachycardic
Breast: Deferred by me
GI: Soft, Nontender, Nondistended and Normal Bowel Sounds
Rectal: Deferred by Provider
Genito-urinary: Clear Urine
Musculoskeletal: No Clubbing, No Cyanosis, Edema, Right Lower Extrem and Edema, Left Lower Extrem
Neuro: Awake, Alert, Oriented, No Motor Deficits and Nonfocal/Grossly Intact
Psych: Calm
--- NOTE | 2024-01-20 08:45 | W.PN.CD ---
Today's Communication / Plan
-
continue attempts at rate control may need to add dig
continue diuresis
Impression / Plan
-
SOB, hypoxia:
-requiring O2 by NC
-likely multifactorial in this patient with CHF, obesity, COPD, untreated CHAS, and atrial flutter.
Atrial flutter, typical:
-new diagnosis, onset unclear
-continue metoprolol, dose increased
-may need to add digoxin if bp remains low
-[id number] score is 5 for age, female, DM, HTN, and CHF. Eliquis to be initiated.
-She isn't a great candidate for rhythm control, morbid obesity, untreated sleep apnea, COPD.
-She should resume weight loss efforts as planned, f/u for a treatment plan for CHAS
thyroid normal
Dykgf-xx-rkqappk HFpEF with concurrent cor pulmonale:
-BNP elevated, weight up, CXR suggestive excess fluid, LE edema noted
-Cotninue IV lasix, intensive monitoring
-CHF education
-patient is on Lasix 80 mg daily as OP. There has been dietary indiscretion.
Obesity:
-severe
-would benefit from weight loss moving forward- she plans to resume diet
s/p TAVR:
-stable by echo,
HTN:
-BP is on low end,
-on CCB, ACEI, BB as OP- hold CCB/ACEI for now.
-hopefully can continue metoprolol, but already took this AM
Data:
TTE: 01/19/24 CONCLUSIONS
Contrast was used.
Hyperdynamic left ventricular systolic function. LV ejection fraction is 70-
75%.
Mild mitral stenosis.
s/p TAVR 29 mm Medtronic Evolut. Peak/mean gradients across the aortic valve
are 8/5 mmHg. No aortic regurgitation.
Enlarged right ventricular size. Reduced right ventricular systolic function.
Septal flattening in systole and diastole consistent with RV pressure and
volume overload.
Mild tricuspid regurgitation.
Moderately elevated PASP. Estimated pulmonary artery pressure of 45-50 mmHg
assuming a right atrial pressure of 15 mmHg.
Compared to 05/01/22: RV dysfunction is now present. PASP was unable to be
measured on prior study.
Physical Exam
Vital Signs/Labs
Vital Signs
Temp Pulse Resp BP Pulse Ox
97.4 F 98 18 94/69 89
01/20/24 04:35 01/20/24 06:27 01/20/24 06:27 01/20/24 06:27 01/20/24 02:02
01/19/24 01/20/24 01/21/24
06:59 06:59 06:59
Actual Weight 141.3 kg
01/20/24 04:26
01/20/24 04:26
PT 15.0 Sec (11.4-14.6) H 01/19/24 11:38
INR 1.18 01/19/24 11:38
APTT 29.2 Sec (23.4-35.0) 01/19/24 15:43
Magnesium 2.0 mg/dl (1.6-2.3) 01/20/24 04:26
01/19/24
09:51
Gjq-L-Dpokiddnqyt Pept 2650
LAB Results
01/19/24
09:51
Troponin I < 0.012
Physical Exam
Constitutional: No acute distress
Cardiovascular: Rhythm/rate is irregular, Pedal edema present (doughy trace), Systolic murmur present and S1S2 is normal
Respiratory: Respiratory effort normal, Lungs clear to auscul., Wheeze Absent and Crackles Absent
Neuro/Psych: AO x 3
Data Reviewed
-
Date of Service: January 20, 2024
Medical Decision Making: Review of Case with other Provider (d/w Dr Lopez, needs diuresis and rate control will f/u on rate later)
[2024-01-20 09:05] LABS: Glycohemoglobin (HgbA1c) 6.6 % (4.0-5.6)
[2024-01-20] MEDS: NOVOLOG FLEXPEN-MODERATE RESISTANCE SC ×3 (09:21→17:44)
[2024-01-20] MEDS: FEOSOL 325 MG PO (09:22)
[2024-01-20] MEDS: CYMBALTA DELAYED RELEASE 60 MG PO (09:22)
[2024-01-20] MEDS: TOPROL XL 100 MG PO (09:22)
[2024-01-20] MEDS: LIPITOR 10 MG PO (09:22)
[2024-01-20] MEDS: ELIQUIS 5 MG PO ×2 (09:22→21:07)
[2024-01-20] MEDS: DESENEX/MITRAZOL/ZEASORB 1 APPLIC TOPICAL ×2 (09:22→21:12)
--- NOTE | 2024-01-20 09:29 | PTCARENOTE ---
Assumed care of patient this AM. Patient AAO x3. AFIB on monitor, HR up to 120's. Patient is on 6L o2 spo2 92%. Will attempt to wean o2. 88% is acceptable as per resident. Lungs diminished with coarse breath sounds. Patient is orthopneic and
SOB on exertion. Currently patient is in chair eating breakfast. Call avitia in reach. Will continue to monitor.
[2024-01-20] MEDS: LASIX 40 MG IV ×2 (11:59→16:49)
[2024-01-20] MEDS: FLUSH (NSS) 2 FLUSH IV (12:00)
[2024-01-20 13:49] LABS: Glucose - Point of Care 119 mg/dl (70-99)
[2024-01-20 14:22] LABS: Hepatitis C Antibody Negative (Negative)
--- NOTE | 2024-01-20 14:44 | W.PN.UPDATE ---
Update Note
Progress Note Update
Patient feeling improved, but HR is still around 120 BPM and BP on low end. Discussed with Dr. Allen and we will initiate digoxin.
--- NOTE | 2024-01-20 15:10 | CON.PUL ---
Consultation
Consultation Request
Date/Time Consultation Requested: 01/20/2024 - 140
Date/Time Consultation Performed: 01/20/2024 - 150
Requesting Provider: Dr. Lowry
Performing Provider: Dr. Meyers
Reason for Consultation: CHAS/Acute hypoxia
Medical History
-
Chief Complaint: SOB and new onset A-fib
History of Present Illness:
68-year-old female former tobacco smoker with a past medical history of hypertension, hyperlipidemia, DM type II, severe CHAS intolerant to CPAP, reported history of COPD/asthma, aortic stenosis s/p TAVR, CVA and anxiety who presents with SOB + and
new onset A-fib. Patient unable to even walk a few steps without feeling shortness of breath. Her health has been declining over the last month with swelling in her legs and worsening SOB. She has also been having blue discoloration of her lips
lately. She had previously lost weight with a ketogenic diet but had stopped dieting and reverted back to her old eating habits and has gained 30 pounds in the last few months. She had seen her airport screener recently, Dr. Smith in [place], who
performed EKG and found the patient to be in atrial fibrillation. Patient then sent here to the ER for further evaluation. In the ER she was afebrile to 97.9 �F, pulse rate 110, breathing at 18 breaths/min, BP 107/82 and saturating 88% on room
air, which improved to 92% with 6 L/min. Labs showed elevated Hb of 18.5, normal WBC at 9.4, creatinine 1.2, proBNP elevated at 2650, troponin negative at <0.012, and TSH normal at 4.59. CXR showed mild pulmonary edema, and CTA chest showed no
acute PE or active pulmonary process, although there was bilateral hilar lymphadenopathy. Patient given 10 mg IV Cardizem and admitted to the IMU for further care. Pulmonary service now consulted for additional management/recommendations.
When I saw the patient, she was laying in bed in no acute distress, awake, alert and answering my questions appropriately. She says she has a history of severe CHAS which was worked up at [facility]. She is intolerant to CPAP as she gets
very anxious and is not even willing to try it again. She is interested in learning more about the inspire device. She has never been worked up for this device by ENT yet. She has even tried different CPAP masks including nasal cannula/nasal CPAP
mask to no avail. She is currently saturating 94% on 6 L/min nasal cannula, heart rate 103 and BP 98/77. She follows with a airport screener at [place] with Dr. Smith. She says that she believes she has a history of asthma and that is why she is
on nebulized inhalers including Brovana, Yupelri + budesonide. She currently denies chest pain, ROOT, abdominal pain, nausea, fevers or chills.
PMHx: Reported history of COPD/asthma, hypertension, hyperlipidemia, DM type II, reported history of CHAS (severe per patient) intolerant to CPAP, aortic stenosis s/p TAVR, anxiety, history of CVA, former tobacco smoker (quit 1999)
PSHx: TAVR (04/2022), D&C, bariatric sleeve (12/2012), left knee replacement (2008), right knee arthroplasty (2013)
Past Medical History
Past Medical History: Other (Above as per HPI)
Past Surgical History: Other (Above as per HPI)
Social History
Tobacco: Former Smoker (06-[id number]-[id number] history, quit in 1999)
Alcohol: Occasional
Drug: None
Personal:
Living: With Family
Family History
Family History: Reviewed & Not Pertinent
Allergies / Home Medications
Allergies
Allergy/AdvReac Type Severity Reaction Status Date / Time
amoxicillin trihydrate Allergy patient Verified 01/19/24 09:22
[From Augmentin] states
severe
nausea and
intestinal
pain
cat dander Allergy Sinus Verified 01/19/24 09:22
congestion
cigarette smoke Allergy Positive Verified 01/19/24 09:22
skin test
to tobacco
dog dander Allergy Sinus Verified 01/19/24 09:22
congestion
grass pollen Allergy Sinus Verified 01/19/24 09:22
congestion,
cough
levofloxacin [From Levaquin] Allergy GI Symptoms Verified 01/19/24 09:22
mold Allergy Sinus Verified 01/19/24 09:22
congestion,
cough
Sulfa (Sulfonamide Allergy INTESTINAL Verified 01/19/24 09:22
Antibiotics) PAIN
tree and shrub pollen Allergy Sinus Verified 01/19/24 09:22
congestion,
cough
Home Medications
�Medication �Instructions �Recorded �Confirmed �Last Taken �Type
amitriptyline 25 mg tablet 50 mg PO HS Mental Health/Anxiety 03/05/09 01/19/24 01/18/24 History
duloxetine 60 mg capsule,delayed 60 mg PO DAILY Mental 01/11/14 01/19/24 01/19/24 History
release Health/Anxiety
atorvastatin 10 mg tablet 10 mg PO DAILY High cholesterol 02/10/22 01/19/24 01/19/24 History
glipizide 2.5 mg tablet, extended 2.5 mg PO BID Diabetes 02/10/22 01/19/24 01/19/24 History
release 24 hr
metformin 500 mg tablet 500 mg PO BID Diabetes 02/10/22 01/19/24 01/19/24 History
metoprolol succinate 50 mg 100 mg PO DAILY Blood pressure 02/10/22 01/19/24 01/19/24 History
tablet,extended release 24 hr
revefenacin 175 mcg/3 mL solution 175 mcg inhalation R DAILY 02/10/22 01/19/24 01/18/24 History
for nebulization (Yupelri) Lung/breathing issues
tramadol 50 mg tablet 50 mg PO TIDPRN PRN MODERATE pain 02/10/22 01/19/24 04/29/22 20:00 History
arformoterol 15 mcg/2 mL solution 2 ml inhalation R BID 04/02/22 01/19/24 01/18/24 History
for nebulization (Brovana) Lung/breathing issues
aspirin 81 mg tablet,delayed 81 mg PO QPM Blood clot 04/02/22 01/19/24 01/18/24 History
release prevention/tx
budesonide 0.5 mg/2 mL suspension 0.5 mg inhalation R BID 04/02/22 01/19/24 01/18/24 History
for nebulization Lung/breathing issues
cyanocobalamin (vitamin B-12) 2,500 mcg sublingual DAILY 04/02/22 01/19/24 01/19/24 History
2,500 mcg sublingual tablet Supplement
(Vitamin B-12)
ferrous sulfate 325 mg (65 mg 325 mg PO DAILY Supplement 04/02/22 01/19/24 01/19/24 History
iron) tablet (iron)
lisinopril 20 mg tablet 20 mg PO BID Blood pressure 04/02/22 01/19/24 01/19/24 History
multivitamin 1 tab PO DAILY Supplement 04/02/22 01/19/24 01/19/24 History
calcium carbonate 500 mg-vitamin 500 mg PO DAILY Supplement 04/08/22 01/19/24 01/19/24 History
D3 5 mcg (200 unit) tablet (Oyster
Shell Calcium-Vitamin D3)
albuterol sulfate 90 mcg/actuation 2 puff inhalation R Q6HPRN PRN SOB 01/19/24 01/19/24 Unknown History
aerosol inhaler
amlodipine 5 mg tablet (Norvasc) 5 mg PO DAILY Blood Pressure 01/19/24 01/19/24 01/19/24 History
biotin 10,000 mcg chewable tablet 10,000 mcg PO DAILY Supplement 01/19/24 01/19/24 01/19/24 History
(Hair, Skin and Nails (biotin))
furosemide 20 mg tablet 40 mg PO BID Fluid 01/19/24 01/19/24 01/19/24 History
Retention/Swelling
zolpidem 10 mg tablet (Ambien) 10 mg PO HS Sleep 01/19/24 01/19/24 01/18/24 History
Review of Systems
-
History Source: Patient
All other systems: Negative unless noted
Vitals / Labs / Diagnostic Testing
Vital Signs
Temp Pulse Resp BP Pulse Ox
97.7 F 110 18 94/69 93
01/20/24 11:40 01/20/24 11:07 01/20/24 11:07 01/20/24 06:27 01/20/24 11:07
Lab Data
01/20/24 04:26
01/20/24 04:26
Laboratory Results
01/19/24
15:43
APTT 29.2
Diagnostic Testing:
Physical Exam
-
HEENT: Normocephalic, Anicteric, Moist Mucous Membranes and Other (Thick neck)
Cardiovascular: Irregular Rhythm (Irregularly irregular), Peripheral Edema (trace LE edema b/l) and Other (Tachycardic)
Respiratory: Wheeze (negative), Rales (Bibasilar), Rhonchi (negative) and Non-Labored Respirations
GI: Soft, Distended (Abdominal obesity), Non Tender and Normal Bowel Sounds
Neurology: AO x 3 and Tremors (negative)
Skin: Warm and Dry
General: Respiratory Distress (negative), Comfortable, Chills (negative) and Sweats (negative)
Assessment
-
Assessment: 68-year-old female former tobacco smoker with a past medical history of hypertension, hyperlipidemia, DM type II, severe CHAS intolerant to CPAP, reported history of COPD/asthma, aortic stenosis s/p TAVR, CVA and anxiety who presents
with SOB + and new onset A-fib. Patient unable to even walk a few steps without feeling shortness of breath. Her health has been declining over the last month with swelling in her legs and worsening SOB. She has also been having blue
discoloration of her lips lately. She had previously lost weight with a ketogenic diet but had stopped dieting and reverted back to her old eating habits and has gained 30 pounds in the last few months. She had seen her airport screener recently,
Luis in [place], who performed EKG and found the patient to be in atrial fibrillation. Patient then sent here to the ER for further evaluation. In the ER she was afebrile to 97.9 �F, pulse rate 110, breathing at 18 breaths/min, BP 107/82 and
saturating 88% on room air, which improved to 92% with 6 L/min. Labs showed elevated Hb of 18.5, normal WBC at 9.4, creatinine 1.2, proBNP elevated at 2650, troponin negative at <0.012, and TSH normal at 4.59. CXR showed mild pulmonary edema, and
CTA chest showed no acute PE or active pulmonary process, although there was bilateral hilar lymphadenopathy. Patient given 10 mg IV Cardizem and admitted to the IMU for further care. Pulmonary service now consulted for additional
management/recommendations.
Chronic conditions DECISION ANALYST: Reported history of COPD/asthma, hypertension, hyperlipidemia, DM type II, reported history of CHAS (severe per patient) intolerant to CPAP, aortic stenosis s/p TAVR, anxiety, history of CVA, former tobacco smoker (quit 1999)
Impression:
#Acute respiratory failure with hypoxia on supplemental oxygen in setting of COPD/asthma
#Acute HFpEF exacerbation likely due to arrhythmia
#Atrial flutter with RVR (new onset)
#Mild�moderate pulmonary hypertension with PASP 45�50 assuming an RAP of 15 mmHg
#Severe CHAS intolerant to CPAP (per patient) with secondary polycythemia (initial Hb 18.5 on 01/19/2024)
#Suspected OHS
#Transaminitis
#Hx of COPD/asthma, not in an acute exacerbation
Plan:
- Continue with aggressive diuresis -currently on Lasix 40 mg IV BID
- Trend UOP, sCr and I/O
- Assure that patient is maintaining net negative fluid balance
- Cardiology consulted and correspondence reviewed and appreciated
- Heart rate control with goal <110
- Replete K>4, Mg>2
- Continue digoxin as per cardiology
- Trend sCr to assure pt is not at risk of dig toxicity
- Eliquis
- Patient admits to having a history of severe obstructive sleep apnea but is intolerant to CPAP and is not willing to use it during this hospitalization
- She is aware of the risks of CPAP noncompliance with CHAS including risk of arrhythmia, cardiovascular disease, hypertension, pulmonary hypertension, and worsening quality of life
- She also likely has obesity hypoventilation syndrome which carries an even greater risk of pulmonary hypertension compared to CHAS
- Check AM VBG to assess pH and pCO2
- Recommend outpatient consultation with ENT to evaluate her for Inspire device
- Maintain SpO2 >88-94% with supplemental O2 and wean down as tolerated
- Continue Spiriva and budesonide, and change albuterol QID to striverdi and this will impact her HR less than a short-acting beta-agonist
- prn nebulized bronchodilators
- No need for systemic steroids at this time given she is not bronchospastic on exam and appears to be breathing comfortably on 6 L/min
- If patient continues to be diuresed and maintains a net negative fluid balance with no improvement in oxygen requirements after 48-72 hours, he would not be unreasonable to start systemic steroids at that time
- Check walking pulse oximetry prior to discharge
- Incentive spirometer encouraged
- Transfuse if needed to keep Hb>7, plt>20k
- Maintain euglycemia with goal BG >100 and <180
- DVT ppx: Eliquis
Pulmonary service will continue to follow along. She ultimately will follow-up with her private airport screener, Dr. Smith. If she wishes to transition to us at [facility] then that is her choice. Our information will be left with the patient if she
wishes to transfer her care to us.
Data:
CTA Chest 01/19/2024:
No evidence of pulmonary embolism or active pulmonary process.
Bilateral hilar lymphadenopathy. It is difficult to evaluate for hilar lymphadenopathy on the previous CT from 09/09/2022 given the absence of intravenous contrast on this exam. Mediastinal lymphadenopathy is unchanged.
Dilated pulmonary arterial system which can be seen in the setting of pulmonary arterial hypertension.
Total time spent today was 75 minutes for this encounter. Time includes reviewing laboratory test/imaging results, reviewing pertinent medical records, obtaining and reviewing medical history, performing an appropriate exam, ordering medications,
tests and procedures. Time also includes documentation of this encounter, coordinating patient care and communicating with other healthcare professionals. Total time does not include separately billed tests performed on this date of service.
[2024-01-20] MEDS: LANOXIN 500 MCG PO (15:33)
[2024-01-20] MEDS: KLOR-CON 20 MEQ PO ×2 (16:49→21:07)
[2024-01-20] MEDS: ASPIR LOW (ENTERIC COATED) 81 MG PO (16:50)
[2024-01-20 17:43] LABS: Glucose - Point of Care 110 mg/dl (70-99)
--- NOTE | 2024-01-20 18:43 | PTCARENOTE ---
Patient remains on 6L of o2, spo2 91-93%. Patient ST on monitor with HR up to 120. Patient OOB to chair and BR with assistance x1. BP's remain soft. Patient denies dizziness or feeling light headed. Appetite good.
[2024-01-20] MEDS: LANOXIN 250 MCG PO (21:07)
[2024-01-20] MEDS: TOPROL XL 50 MG PO (21:07)
[2024-01-20] MEDS: ELAVIL 50 MG PO (21:07)
[2024-01-20] MEDS: MELATONIN 10 MG PO (21:11)
[2024-01-20 22:58] LABS: Glucose - Point of Care 133 mg/dl (70-99)
[2024-01-21] VITALS (13 sets, daily range): BP systolic 90–159; BP diastolic 62–139; BMI 50.3
[2024-01-21] MEDS: ATIVAN 0.5 MG IV (01:23)
--- NOTE | 2024-01-21 01:30 | PTCARENOTE ---
Patient anxious and tearful d/t feeling extremely uncomfortable despite multiple measures like repositioning, sitting in chair, bed in chair like position, etc. SUBSURFACE AUGMENTEE OPERATOR notified and x1 order placed for 0.5mg IV Ativan, see MAR for administration.
Assisted patient into bed prior to administration and placed in chair like position, ~15 minutes later patient stating she is uncomfortable and needs to get OOB. Patient assisted to chair with alarm in place, call avitia within reach, and all
belongings within reach.
[2024-01-21 05:09] LABS: Venous Blood Gas B.E. -1.7 mmol/L (-4 to +4); Venous Blood Gas HCO3 24.8 mmol/L (22-27); Venous Blood Gas O2 Sat % 95.5 %; Venous Blood Gas pCO2 47 mmHg (35-48); Venous Blood Gas pH 7.33 (7.32-7.43); Venous Blood Gas pO2 76 mmHg (30-50)
[2024-01-21 05:15] LABS: Hematocrit 48.5 % (37.0-47.0); Hemoglobin 16.4 g/dL (12.0-16.0); Mean Corp Hgb Conc. 33.8 g/dL (33.0-37.0); Mean Corpuscular Hgb 31.7 pg (27.0-31.0); Mean Corpuscular Volume 93.8 fL (81.0-99.0); Mean Platelet Volume 11.1 fL (7.4-10.4); Platelet Count 211 10^3/uL (130-400); Red Blood Cell Count 5.17 10^6/uL (4.20-5.40); Red Cell Dist. Width 15.3 % (11.5-14.5); White Blood Cell Count 7.7 10^3/uL (4.8-10.8)
[2024-01-21 05:39] LABS: Blood Urea Nitrogen 39 mg/dl (7-17); Carbon Dioxide 20 mmol/L (22-30); Chloride 104 mmol/L (98-107); Estimated Creatinine Clearance 85 ml/min; Glucose 139 mg/dl (70-99); Magnesium 2.1 mg/dl (1.6-2.3); Phosphorus 4.2 mg/dl (2.5-4.5); Potassium 4.1 mmol/L (3.5-5.1); Sodium 140 mmol/L (135-145); eGFR > 60.00
[2024-01-21] MEDS: SPIRIVA RESPIMAT 2.5 MCG 2 PUFF INH (07:29)
[2024-01-21] MEDS: PULMICORT 0.5 MG INH ×2 (07:29→20:08)
[2024-01-21] MEDS: STRIVERDI RESPIMAT 2 PUFF INH (07:29)
--- NOTE | 2024-01-21 07:47 | W.PN.HOSP.TC ---
Addendum entered and electronically signed by Iesha Toro MD 01/21/24 15:15:
clarification- New diagnosis of Aflutter
Addendum entered and electronically signed by Iesha Toro MD 01/21/24 09:10:
68-year-old female with history of smoking in the past, sleep apnea intolerant of CPAP, history of COPD/asthma came to the hospital with shortness of breath. She also was found to be new onset atrial fibrillation.
I personally performed a history and physical exam of the patient and discussed management with the resident. I reviewed the resident's note and agree with the documented findings and plan of care HPI/CC except changes in documentation
CTA chest 01/19/2024-no PE. Bilateral hilar lymphadenopathy. Medicine lymphadenopathy unchanged. Dilated pulmonary artery system in the setting of pulmonary hypertension.
Echo 01/19/2024-hyperdynamic LV. EF 70 to 78%. Mild MS. Status post TAVR. No AI. Enlarged RV. Reduced RV systolic function. Septal flattening in systole and diastole consistent with RV pressure and volume overload. Mild TR. Moderate elevated
PASP 45 to 50 mmHg
CVS: S1-S2 normal
Chest: CTA B/L
Abdomen: Soft, NT ,Bowel sounds present
Extremities: trace edema, normal pulses
# Acute hypoxic respiratory failure
Oxygen has been weaned to 4 L
Likely secondary to acute heart failure preserved ejection fraction secondary to rapid rates
Mild to moderate pulmonary hypertension
Sleep apnea
Obesity hypoventilation
COPD/asthma-contributing
NO PE
# Acute on chronic heart failure preserved ejection fraction secondary to poorly controlled arrhythmia
New diagnosis of atrial fibrillation
Normal TSH
Now she converted to regular rhythm
Rate control-metoprolol XL 100 g in the morning 50 mg in the evening. Digoxin started
Eliquis started. Unclear if she still needs aspirin
Continue Lasix
Intake output charting and daily weights
# Sleep apnea
Intolerant of CPAP
Discussed about surgical options-she will explore
Weight loss will also help
# Hypertension-continue metoprolol. Hold lisinopril and amlodipine for rate control medicines
# Hyperlipidemia-continue statin
# Diabetes-was on metformin and glipizide. Hemoglobin A1c 6.6. Holding OHA. Currently on sliding scale coverage. Sugars stable
# COPD/asthma-continue Brovana/budesonide/Yupelri or equivalent and as needed nebulizers
# Elevated AST and ALT-likely secondary to CHF. Repeat
# History of aortic stenosis status post TAVR
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
# Anxiety-continue amitriptyline and duloxetine
# Obesity with a BMI of 50-history of bariatric sleeve 2012
# Chronic back pain/fibromyalgia/osteoarthritis-on tramadol
# Insomnia-was on Ambien prior to admission. Very difficult situation as she is not able to use treatment for sleep apnea and has severe insomnia.
# Ex-smoker
# CODE STATUS-full code
# DVT prophylaxis-Eliquis
Part of this note was created using voice recognition system. Occasional wrong word or��sound alike� substitutions may have inadvertently occurred due to the inherent limitations of voice recognition software. If noted kindly bring it to my
attention for correction.
Time over 50 min
Ok for tele.
Original Note:
Today's Communication/Plan
-
C/w diuresis, spiriva nebulizers, and attempt to wean O2 as tolerated.
Assessment / Plan
Assessment / Plan
68 year old female with a PMHx of COPD, HTN, HLD, Anxiety, CHAS, Valvular Disease s/p TAVR 2021 new onset Afib/A flutter w/ RVR ([employer] Dr. Otero)
#New onset A Flutter w/ RVR
#Acute Exacerbation of HFpEF
- initially hypotensive, systolic pressures 90s-100s
- Echocardiogram demonstrates EF 70-75%, normal TAVR function, dilated RV with RV dysfunction.
- CT Chest showed no evidence of PE.
- C/w Lasix 40mg IV BID, trend daily weights, I/Os
- Recommendation to focus on rate control; Start on Toprol XL 100mg AM and 50mg PM. Hold home Lisinopril/Amlodipine to allow titration of Toprol (HR have been 90s-120s, with >100bpm readings most at night, possible consequence of CHAS).
- C/w Eliquis 5mg BID for PPx
#Acute Hypoxic Respiratory Failure
- O2 saturations on admission in the 70s on RA. Requiring 6L NC to maintain saturations >92%
- Try to wean O2 requirements as tolerated to maintain saturations 88-92%
#COPD
- c/w home Spiriva, Nebulizers
- Pulm following. if O2 requirements remain high after 48-72hr of consistent diuresis, can consider dose of steroids
#HTN - hold home antihypertensives as above.
#HLD - c/w statin
#NIDDM - LDISS while here. Hold home PO meds.
#Anxiety - c/w home Duloxetine, amitriptyline
#Dispo - IMU
#Diet - Diabetic Diet
#DVT PPx - On Eliquis
#Code Status - Full Code
Anticipated Discharge: 24 - 48 hours
Subjective/Interval History
-
Feeling much better than when she came in. Shortness of breath and swelling improving. She does still endorse trouble sleeping.
Objective Data
-
Labs:
Laboratory Results
01/21/24
04:56
WBC 7.7
Hgb 16.4 H
Hct 48.5 H
Plt Count 211
Sodium 140
Potassium 4.1
Chloride 104
Carbon Dioxide 20 L
BUN 39 H
Creatinine 0.9
Glucose 139 H
Calcium 9.0
Vital Signs:
Vital Signs
Temp Pulse Resp BP Pulse Ox
97.6 F 115 18 90/65 95
01/21/24 05:04 01/21/24 07:34 01/21/24 07:34 01/21/24 06:03 01/21/24 07:34
I&O
01/20/24 01/21/24 01/22/24
06:59 06:59 06:59
Intake Total 325 / 325
Output Total 550 / 550 1210 / 1210
Balance -550 / -550 -885 / -885
Review of Systems
-
History Source: Patient
All other systems: Reviewed and negative
Respiratory: Reports Trouble Breathing (Improving)
Cardiac: Denies Chest Pain, Diaphoresis, Palpitations, Syncope or Orthopnea
Abdomen/GI: Reports No Symptoms
Breast: Reports No Symptoms
Genitourinary: Reports No Symptoms
Musculoskeletal: Reports No Symptoms
Skin: Reports No Symptoms
Neuro: Reports No Symptoms
Endocrine: Reports No Symptoms
Hematologic / Lymphatic: Reports No Symptoms
Physical Exam
-
General: Well Developed, Well Nourished, No Apparent Distress and Morbidly Obese
HEENT: Normocephalic, Atraumatic, Moist Mucous Membranes, [place] Conjunctivae and PERRLA
Respiratory: Clear to Auscultation and Non Labored Respirations
Cardiac: S1/S2, Irregular Rhythm and Tachycardic; Negative Murmur
Breast: Deferred by me
GI: Soft, Nontender, Nondistended and Normal Bowel Sounds
Genito-urinary: Deferred by me
Musculoskeletal: No Clubbing, No Cyanosis, Edema, Right Lower Extrem and Edema, Left Lower Extrem
Neuro: Awake, Alert and Oriented
[2024-01-21 08:42] LABS: Glucose - Point of Care 126 mg/dl (70-99)
[2024-01-21] MEDS: ELIQUIS 5 MG PO ×2 (09:01→21:28)
[2024-01-21] MEDS: TOPROL XL 100 MG PO (09:01)
[2024-01-21] MEDS: NOVOLOG FLEXPEN-MODERATE RESISTANCE SC ×3 (09:01→17:14)
[2024-01-21] MEDS: LIPITOR 10 MG PO (09:01)
[2024-01-21] MEDS: CYMBALTA DELAYED RELEASE 60 MG PO (09:02)
[2024-01-21] MEDS: DESENEX/MITRAZOL/ZEASORB 1 APPLIC TOPICAL ×2 (09:02→21:29)
[2024-01-21] MEDS: FEOSOL 325 MG PO (09:02)
--- NOTE | 2024-01-21 09:22 | W.PN.PUL3 ---
Today's Communication / Plan
-
Continue spiriva, striverdi and budesonide
Resume home nebulized bronchodilators with pulmicort upon discharge
Outpatient ENT evaluation for Inspire device
Trend blood gas to assure stability of pCO2 and pH
Aggressive diuresis and digoxin per cardiology
Trend I/O and sCr
Pulmonary service will now sign off. No additional recommendations at this time. She ultimately will follow-up with her private detail assembler, Dr. Smith. If she wishes to transition to us at [facility] then that is her choice. Our information will
be left with the patient if she wishes to transfer her care to us. Please call back with any questions.
Assessment
-
Assessment: 68-year-old female former tobacco smoker with a past medical history of hypertension, hyperlipidemia, DM type II, severe CHAS intolerant to CPAP, reported history of COPD/asthma, aortic stenosis s/p TAVR, CVA and anxiety who presents
with SOB + and new onset A-fib. Patient unable to even walk a few steps without feeling shortness of breath. Her health has been declining over the last month with swelling in her legs and worsening SOB. She has also been having blue
discoloration of her lips lately. She had previously lost weight with a ketogenic diet but had stopped dieting and reverted back to her old eating habits and has gained 30 pounds in the last few months. She had seen her detail assembler recently, "Aguilar"Luis in [place], who performed EKG and found the patient to be in atrial fibrillation. Patient then sent here to the ER for further evaluation. In the ER she was afebrile to 97.9 �F, pulse rate 110, breathing at 18 breaths/min, BP 107/82 and
saturating 88% on room air, which improved to 92% with 6 L/min. Labs showed elevated Hb of 18.5, normal WBC at 9.4, creatinine 1.2, proBNP elevated at 2650, troponin negative at <0.012, and TSH normal at 4.59. CXR showed mild pulmonary edema, and
CTA chest showed no acute PE or active pulmonary process, although there was bilateral hilar lymphadenopathy. Patient given 10 mg IV Cardizem and admitted to the IMU for further care. Pulmonary service now consulted for additional
management/recommendations.
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
Impression:
#Acute respiratory failure with hypoxia on supplemental oxygen in setting of COPD/asthma
#Acute HFpEF exacerbation likely due to arrhythmia
#Atrial flutter with RVR (new onset)
#Mild�moderate pulmonary hypertension with PASP 45�50 assuming an RAP of 15 mmHg
#Severe CHAS intolerant to CPAP (per patient) with secondary polycythemia (initial Hb 18.5 on 01/19/2024)
#Suspected OHS
#Transaminitis
#Hx of COPD/asthma, not in an acute exacerbation
Plan:
- Continue with aggressive diuresis -currently on Lasix 40 mg IV BID
- Trend UOP, sCr and I/O
- Assure that patient is maintaining net negative fluid balance
- Cardiology consulted and correspondence reviewed and appreciated
- Heart rate control with goal <110
- Replete K>4, Mg>2
- Continue digoxin as per cardiology
- Trend sCr to assure pt is not at risk of dig toxicity
- Eliquis
- Patient admits to having a history of severe obstructive sleep apnea but is intolerant to CPAP and is not willing to use it during this hospitalization
- She is aware of the risks of CPAP noncompliance with CHAS including risk of arrhythmia, cardiovascular disease, hypertension, pulmonary hypertension, and worsening quality of life
- She also likely has obesity hypoventilation syndrome which carries an even greater risk of pulmonary hypertension compared to CHAS
- AM blood gas today shows mild acute respiratory acidosis with pH 7.33 and pCO2 47 - nocturnal CPAP/BiPAP is recommended - pt unwilling to use PAP, understands the risks. Continue to trend pH and pCO2
- Recommend outpatient consultation with ENT to evaluate her for Inspire device
- Maintain SpO2 >88-94% with supplemental O2 and wean down as tolerated
- Continue Spiriva, budesonide, and striverdi
- prn nebulized bronchodilators
- No need for systemic steroids at this time given she is not bronchospastic on exam and appears to be breathing comfortably on 4 L/min
- If patient continues to be diuresed and maintains a net negative fluid balance with no improvement in oxygen requirements after 48-72 hours, it would not be unreasonable to start systemic steroids at that time
- Check walking pulse oximetry prior to discharge
- Incentive spirometer encouraged
- Transfuse if needed to keep Hb>7, plt>20k
- Maintain euglycemia with goal BG >100 and <180
- DVT ppx: Eliquis
Pulmonary service will now sign off. No additional recommendations at this time. She ultimately will follow-up with her private detail assembler, Dr. Smith. If she wishes to transition to us at [facility] then that is her choice. Our information will
be left with the patient if she wishes to transfer her care to us.
Data:
CTA Chest 01/19/2024:
No evidence of pulmonary embolism or active pulmonary process.
Bilateral hilar lymphadenopathy. It is difficult to evaluate for hilar lymphadenopathy on the previous CT from 09/09/2022 given the absence of intravenous contrast on this exam. Mediastinal lymphadenopathy is unchanged.
Dilated pulmonary arterial system which can be seen in the setting of pulmonary arterial hypertension.
Total time spent today was 35 minutes for this encounter. Time includes reviewing laboratory test/imaging results, reviewing pertinent medical records, obtaining and reviewing medical history, performing an appropriate exam, ordering medications,
tests and procedures. Time also includes documentation of this encounter, coordinating patient care and communicating with other healthcare professionals. Total time does not include separately billed tests performed on this date of service.
Subjective Data
-
Date of Service:
Date of Service: January 21, 2024
Chief Complaint: Pulmonary Follow Up
Subjective:
Pt seen at bedside today. Currently on 4L/min NC, and she says her SOB is much better today. No chest pain or palpitations reported. No acute events reported from overnight. She slept poorly. Net negative 885cc last 24 hrs. Denies chest pain,
ROOT, abd pain, N/V/f/c.
Review of Systems
General: Other (negative unless mentioned above)
Objective Data
Data Reviewed
Vital Signs / I&O / Oxygen:
Vital Signs
Temp Pulse Resp BP Pulse Ox
97.6 F 113 18 98/62 92
01/21/24 07:35 01/21/24 09:58 01/21/24 07:34 01/21/24 08:32 01/21/24 08:32
Intake and Output
01/20/24 01/21/24 01/22/24
06:59 06:59 06:59
Intake Total 325 / 325 240 / 240
Output Total 550 / 550 1210 / 1210 100 / 100
Balance -550 / -550 -885 / -885 140 / 140
SaO2 92
Nasal Cannula flow liters per 4
minute
Physical Exam
General: Respiratory Distress (negative), Comfortable, Chills (negative) and Sweats (negative)
HEENT: Normocephalic and Anicteric
Cardiovascular: Irregular Rhythm and Peripheral Edema (+1 LE pitting edema b/l)
Respiratory: Clear, Wheeze (negative), Crackles (negative), Rhonchi (negative) and Non-Labored Respirations
GI: Soft, Distended (abdominal obesity), Non Tender and Normal Bowel Sounds
Neurology: AO x 3 and Tremors (negative)
Skin: Warm, Dry and Jaundice (negative)
Labs/Micro/Reports
Lab Data
01/21/24 04:56
01/21/24 04:56
--- NOTE | 2024-01-21 09:26 | W.PN.CD ---
Today's Communication / Plan
-
- will give another 250mcg now and at noon then continue noon daily dosing
-continue diuresis
Impression / Plan
-
SOB, hypoxia:
-requiring O2 by NC
-decreased requirement with lasix
-likely multifactorial in this patient with CHF, obesity, COPD, untreated CHAS, and atrial flutter.
Atrial flutter, typical:
-new diagnosis, onset unclear
-continue metoprolol, dose has dali increased
-dig loading with improvement of rates, will give another 250mcg now and at noon then continue noon daily dosing
-[id number] score is 5 for age, female, DM, HTN, and CHF. Eliquis to be initiated.
-She isn't a great candidate for rhythm control, morbid obesity, untreated sleep apnea, COPD.
-She should resume weight loss efforts as planned, f/u for a treatment plan for CHAS
thyroid normal
Mronk-jg-dqehxjk HFpEF with concurrent cor pulmonale:
-BNP elevated, weight up, CXR suggestive excess fluid, LE edema noted
-Cotninue IV lasix, intensive monitoring
-CHF education
-patient is on Lasix 80 mg daily as OP. There has been dietary indiscretion.
Obesity:
-severe
-would benefit from weight loss moving forward- she plans to resume diet
s/p TAVR:
-stable by echo,
HTN:
-BP is on low end,
-on CCB, ACEI, BB as OP- hold CCB/ACEI for now.
-conitnue metoprolol
Subjective:
Cannot sleep but breathing feels better. She has no palpitations or cp
Data:
TTE: 01/19/24 CONCLUSIONS
Contrast was used.
Hyperdynamic left ventricular systolic function. LV ejection fraction is 70-
75%.
Mild mitral stenosis.
s/p TAVR 29 mm Medtronic Evolut. Peak/mean gradients across the aortic valve
are 8/5 mmHg. No aortic regurgitation.
Enlarged right ventricular size. Reduced right ventricular systolic function.
Septal flattening in systole and diastole consistent with RV pressure and
volume overload.
Mild tricuspid regurgitation.
Moderately elevated PASP. Estimated pulmonary artery pressure of 45-50 mmHg
assuming a right atrial pressure of 15 mmHg.
Compared to 05/01/22: RV dysfunction is now present. PASP was unable to be
measured on prior study.
Physical Exam
Vital Signs/Labs
Vital Signs
Temp Pulse Resp BP Pulse Ox
97.6 F 115 18 98/62 92
01/21/24 07:35 01/21/24 07:34 01/21/24 07:34 01/21/24 08:32 01/21/24 08:32
01/20/24 01/21/24 01/22/24
06:59 06:59 06:59
Actual Weight 141.3 kg 141.3 kg
01/21/24 04:56
01/21/24 04:56
PT 15.0 Sec (11.4-14.6) H 01/19/24 11:38
INR 1.18 01/19/24 11:38
APTT 29.2 Sec (23.4-35.0) 01/19/24 15:43
Magnesium 2.1 mg/dl (1.6-2.3) 01/21/24 04:56
01/19/24
09:51
Ozb-U-Kwfjqzwyfxl Pept 2650
LAB Results
01/19/24
09:51
Troponin I < 0.012
Physical Exam
Constitutional: No acute distress and Other (morbidly obese)
EENT: Other (cyanotic lips)
Cardiovascular: Pedal edema is absent, Systolic murmur absent and Rhythm/rate is irregular
Respiratory: Respiratory effort normal, Lungs clear to auscul., Wheeze Absent and Crackles Absent
Neuro/Psych: AO x 3
Data Reviewed
-
Date of Service: January 21, 2024
Medical Decision Making: Review of Case with other Provider (nursing given dig now and at noon, continue lasix)
EKG: Other (aflutter, 90-110's)
[2024-01-21] MEDS: LANOXIN 250 MCG PO ×3 (09:58→12:29)
[2024-01-21] MEDS: LASIX 40 MG IV ×2 (11:14→16:00)
--- NOTE | 2024-01-21 11:34 | PN.CDI ---
CDI
- -
CDI:
Physician Documentation Request
Admit Date: 01/19/24 11:58
Dear Doctor Cortez,
Please review the following and provide your response in the progress notes.
Clinical Indicators:
- 01/20 Cardiology 'Atrial flutter, typical...new diagnosis'
- 01/20 PN 'New diagnosis of atrial fibrillation'
- 01/18 EKG indicates atrial flutter
- 01/18 Echo rhythm: Atrial flutter
In an attempt to clarify potentially conflicting documentation, please clarify the arrhythmia:
Typical atrial flutter
Atrial fibrillation
Both atrial fibrillation and atrial flutter
Other (please specify)
Use of terms such as suspected, likely, concern for, or probable (associated with a specific diagnosis that is being evaluated, monitored, or treated as if it exists) are acceptable and can be coded in the inpatient setting, when documented at the
time of discharge.
Thank you,
María Elena Jimenez RN
CDI Specialist
Please use your independent medical judgment in providing your response.
[2024-01-21 14:07] LABS: Glucose - Point of Care 120 mg/dl (70-99)
--- NOTE | 2024-01-21 14:12 | PTCARENOTE ---
Report given to RN. Patient transferred to [facility] room 432. All belongings with the patient.
--- NOTE | 2024-01-21 15:15 | TRANSFER ---
Pt received from IMU into room 432, ambulated from stretcher to bed. Pt on 4L NC and is afib/aflutter on telemetry, HR 90s. Pt denying any acute complaints at this time. Oriented to room and plan of care.
--- NOTE | 2024-01-21 16:08 | CM ---
Patient with Hx obesity with Dx Acute hypoxic respiratory failure, HF. O2 4L. Receiving IV Lasix. Patient transferred from IMU to 4W today.
Met with patient and ;
the patient resides with her in a 2 story house with 2 CHAD, and first floor bedroom/bath.
The patient has been independent in ADLs and ambulation.
She is active shops and drives.
DME from prior knee surgery: RW, SPC, crutches, shower chair
VN - prior [facility]
SNF - prior [place] [facility]
PCP - Sanjay Carrera
Pharmacy - [facility]
Offered VN for nurse for ongoing HF Education and patient agrees - she chooses [facility].
Referral to [facility] Liaison.
Plan home with [facility].
--- NOTE | 2024-01-21 16:20 | CM ---
Patient with Hx obesity with Dx Acute hypoxic respiratory failure, HF, new atrial flutter. O2 4L. Receiving IV Lasix. Patient transferred from IMU to 4W today.
Met with patient and ;
the patient resides with her in a 2 story house with 2 CHAD, and first floor bedroom/bath.
The patient has been independent in ADLs and ambulation.
She is active shops and drives.
DME from prior knee surgery: RW, SPC, crutches, shower chair
VN - prior [facility]
SNF - prior [place] [facility]
PCP - Sanjay Carrera
Pharmacy - [facility]
Offered VN for nurse for ongoing HF Education and patient agrees - she chooses [facility].
Referral to [facility] Liaison.
Plan watch for any home O2 needs.
Plan home with [facility].
--- NOTE | 2024-01-21 16:35 | VNURNOTE ---
Home Health Liaison met with patient to discuss [facility] nurse/therapy, visits, schedule and homebound status. Patient is agreeable and understands that visits at home will be 2-3 x per week to assess and teach HF medical management. She confirms she
has a scale at home. Patient is aware that [facility] will contact them for start of care in 1-2 days after discharge from .
[facility] referral completed in [facility].
[2024-01-21 17:13] LABS: Glucose - Point of Care 138 mg/dl (70-99)
[2024-01-21] MEDS: ASPIR LOW (ENTERIC COATED) 81 MG PO (17:21)
[2024-01-21 21:28] LABS: Glucose - Point of Care 129 mg/dl (70-99)
[2024-01-21] MEDS: TOPROL XL 50 MG PO (21:28)
[2024-01-21] MEDS: ELAVIL 50 MG PO (21:29)
[2024-01-21] MEDS: AMBIEN 5 MG PO (21:33)
[2024-01-22 03:58] VITALS: BP 130/76
[2024-01-22 05:54] LABS: Blood Urea Nitrogen 32 mg/dl (7-17); Carbon Dioxide 30 mmol/L (22-30); Chloride 103 mmol/L (98-107); Estimated Creatinine Clearance 85 ml/min; Glucose 116 mg/dl (70-99); Potassium 4.4 mmol/L (3.5-5.1); Sodium 141 mmol/L (135-145); eGFR > 60.00
[2024-01-22 07:00] VITALS: BP 103/74
[2024-01-22 07:15] LABS: Glucose - Point of Care 114 mg/dl (70-99)
[2024-01-22] MEDS: PULMICORT 0.5 MG INH ×2 (07:30→21:02)
[2024-01-22] MEDS: SPIRIVA RESPIMAT 2.5 MCG 2 PUFF INH (07:30)
[2024-01-22] MEDS: STRIVERDI RESPIMAT 2 PUFF INH (07:30)
[2024-01-22] MEDS: NOVOLOG FLEXPEN-MODERATE RESISTANCE SC ×3 (07:33→16:38)
[2024-01-22] MEDS: CYMBALTA DELAYED RELEASE 60 MG PO (08:45)
[2024-01-22] MEDS: LIPITOR 10 MG PO (08:45)
[2024-01-22] MEDS: TOPROL XL 100 MG PO (08:45)
[2024-01-22] MEDS: ELIQUIS 5 MG PO ×2 (08:45→20:54)
[2024-01-22] MEDS: FEOSOL 325 MG PO (08:45)
[2024-01-22] MEDS: LASIX 40 MG IV ×2 (08:46→15:54)
[2024-01-22] MEDS: DESENEX/MITRAZOL/ZEASORB 1 APPLIC TOPICAL ×2 (08:46→20:57)
[2024-01-22 11:00] VITALS: BP 147/94
--- NOTE | 2024-01-22 11:18 | W.PN.PUL.V3 ---
Today's Communication / Plan
-
Wean oxygen
Assess discharge supplemental oxygen needs
Atrial flutter rate control
Diuresis as tolerated
Outpatient sleep disordered follow-up
Pulmonary will sign off-please call with questions
Assessment
-
Assessment: 68-year-old female former tobacco smoker with a past medical history of hypertension, hyperlipidemia, DM type II, severe CHAS intolerant to CPAP, reported history of COPD/asthma, aortic stenosis s/p TAVR, CVA and anxiety who presents
with SOB + and new onset A-fib. Patient unable to even walk a few steps without feeling shortness of breath. Her health has been declining over the last month with swelling in her legs and worsening SOB. She has also been having blue
discoloration of her lips lately. She had previously lost weight with a ketogenic diet but had stopped dieting and reverted back to her old eating habits and has gained 30 pounds in the last few months. She had seen her plant production manager recently, "Aguilar"Luis in [place], who performed EKG and found the patient to be in atrial fibrillation. Patient then sent here to the ER for further evaluation. In the ER she was afebrile to 97.9 �F, pulse rate 110, breathing at 18 breaths/min, BP 107/82 and
saturating 88% on room air, which improved to 92% with 6 L/min. Labs showed elevated Hb of 18.5, normal WBC at 9.4, creatinine 1.2, proBNP elevated at 2650, troponin negative at <0.012, and TSH normal at 4.59. CXR showed mild pulmonary edema, and
CTA chest showed no acute PE or active pulmonary process, although there was bilateral hilar lymphadenopathy. Patient given 10 mg IV Cardizem and admitted to the IMU for further care. Pulmonary service now consulted for additional
management/recommendations.
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
Impression:
#Acute respiratory failure with hypoxia on supplemental oxygen in setting of COPD/asthma
#Acute HFpEF exacerbation likely due to arrhythmia
#Atrial flutter with RVR (new onset)
#Mild�moderate pulmonary hypertension with PASP 45�50 assuming an RAP of 15 mmHg
#Severe CHAS intolerant to CPAP (per patient) with secondary polycythemia (initial Hb 18.5 on 01/19/2024)
#Suspected OHS
#Transaminitis
#Hx of COPD/asthma, not in an acute exacerbation
Plan:
Respiratory status slowly improving
Supplemental oxygen as needed-still on oxygen
Assess discharge supplemental oxygen needs prior to discharge-she does not have oxygen at home
Incentive spirometry
Aspiration precautions
Cardiology following-correspondence reviewed
Diuresis as tolerated
Monitor renal function, electrolytes, intake/output, lower extremity edema and weight
Replace electrolytes as needed
Digoxin per cardiology
Anticoagulation-Eliquis
Patient has severe CHAS intolerant to CPAP
- She is aware of the risks of CPAP noncompliance with CHAS including risk of arrhythmia, cardiovascular disease, hypertension, pulmonary hypertension, and worsening quality of life
- She also likely has obesity hypoventilation syndrome which carries an even greater risk of pulmonary hypertension compared to CHAS
- AM blood gas today shows mild acute respiratory acidosis with pH 7.33 and pCO2 47 - nocturnal CPAP/BiPAP is recommended - pt unwilling to use PAP, understands the risks. Continue to trend pH and pCO2
- Recommend outpatient consultation with ENT to evaluate her for Inspire device
DVT prophylaxis-on Eliquis
Nutrition
Physical therapy
Pulmonary will sign off-please call with questions
She ultimately will follow-up with her private plant production manager, Dr. Smith.
If she wishes to transition to us at [facility] then that is her choice.
Our information will be left with the patient if she wishes to transfer her care to us.
Data:
CTA Chest 01/19/2024:
No evidence of pulmonary embolism or active pulmonary process.
Bilateral hilar lymphadenopathy. It is difficult to evaluate for hilar lymphadenopathy on the previous CT from 09/09/2022 given the absence of intravenous contrast on this exam. Mediastinal lymphadenopathy is unchanged.
Dilated pulmonary arterial system which can be seen in the setting of pulmonary arterial hypertension.
Subjective Data
-
Date of Service:
Date of Service: January 22, 2024
Chief Complaint: Pulmonary Follow Up and Dyspnea Follow Up
Subjective:
Feels better, no complaints of chest pain, productive cough, sleepy, no oxygen at home, no abdominal pain or increased lower extremity swelling
Review of Systems
General: Other ( per HPI)
Objective Data
Data Reviewed
Vital Signs / I&O:
Vital Signs
Temp Pulse Resp BP Pulse Ox
97.9 F 101 18 103/74 97
01/22/24 07:00 01/22/24 07:35 01/22/24 07:35 01/22/24 07:00 01/22/24 08:00
Intake and Output
01/21/24 01/22/24 01/23/24
06:59 06:59 06:59
Intake Total 325 / 325 1979 / 1979
Output Total 1210 / 1210 550 / 550
Balance -885 / -885 1430 / 1430
SaO2: 97
Nasal Cannula flow liters per minute: 4
Physical Exam
General: Respiratory Distress (negative), Comfortable, Chills (negative) and Sweats (negative)
HEENT: Normocephalic and Anicteric
Cardiovascular: Irregular Rhythm and Peripheral Edema (+1 LE pitting edema b/l)
Respiratory: Clear, Wheeze (negative), Crackles (negative), Rhonchi (negative) and Non-Labored Respirations
GI: Soft, Distended (abdominal obesity), Non Tender and Normal Bowel Sounds
Neurology: AO x 3 and Tremors (negative)
Skin: Warm, Dry and Jaundice (negative)
Labs/Micro/Reports
Lab Data
01/21/24 04:56
01/22/24 04:52
[2024-01-22] MEDS: LANOXIN 250 MCG PO ×2 (11:44)
--- NOTE | 2024-01-22 13:25 | W.PN.HOSP.TC ---
Today's Communication/Plan
-
Diuresis
Assessment / Plan
Assessment / Plan
68 year old female with a PMHx of COPD, HTN, HLD, Anxiety, CHAS, Valvular Disease s/p TAVR 2021 new onset Afib/A flutter w/ RVR (Cleaner Operator Dr. Otero)
CTA chest 01/19/2024-no PE. Bilateral hilar lymphadenopathy. Medicine lymphadenopathy unchanged. Dilated pulmonary artery system in the setting of pulmonary hypertension.
Echo 01/19/2024-hyperdynamic LV. EF 70 to 78%. Mild MS. Status post TAVR. No AI. Enlarged RV. Reduced RV systolic function. Septal flattening in systole and diastole consistent with RV pressure and volume overload. Mild TR. Moderate elevated
PASP 45 to 50 mmHg
CVS: S1-S2 irregular
Chest: CTA B/L
Abdomen: Soft, NT ,Bowel sounds present
Extremities: trace edema, normal pulses
# Acute hypoxic respiratory failure
Oxygen has been weaned to 4 L
Likely secondary to acute heart failure preserved ejection fraction secondary to rapid rates
Mild to moderate pulmonary hypertension
Sleep apnea
Obesity hypoventilation
COPD/asthma-contributing
NO PE
# Acute on chronic heart failure preserved ejection fraction secondary to poorly controlled arrhythmia
New diagnosis of A flutter
Was in SR now back in Flutter
Normal TSH
Now she converted to regular rhythm
Rate control-metoprolol XL 100 g in the morning 50 mg in the evening. Digoxin started
Eliquis started. Unclear if she still needs aspirin
Continue Lasix
Intake output charting and daily weights
# Sleep apnea
Intolerant of CPAP
Discussed about surgical options-she will explore
Weight loss will also help
# Hypertension-continue metoprolol. Hold lisinopril and amlodipine for rate control medicines
# Hyperlipidemia-continue statin
# Diabetes-was on metformin and glipizide. Hemoglobin A1c 6.6. Holding OHA. Currently on sliding scale coverage. Sugars stable
# COPD/asthma-continue Brovana/budesonide/Yupelri or equivalent and as needed nebulizers
# Elevated AST and ALT-likely secondary to CHF. Repeat
# History of aortic stenosis status post TAVR
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
# Anxiety-continue amitriptyline and duloxetine
# Obesity with a BMI of 50-history of bariatric sleeve 2012
# Chronic back pain/fibromyalgia/osteoarthritis-on tramadol
# Insomnia-was on Ambien prior to admission. Very difficult situation as she is not able to use treatment for sleep apnea and has severe insomnia.
# Ex-smoker
# CODE STATUS-full code
# DVT prophylaxis-Eliquis
D/W Sister in law at bed side
Part of this note was created using voice recognition system. Occasional wrong word or��sound alike� substitutions may have inadvertently occurred due to the inherent limitations of voice recognition software. If noted kindly bring it to my
attention for correction.
Anticipated Discharge: 24 - 48 hours
Subjective/Interval History
-
Date of Service: January 22, 2024
Objective Data
-
Labs:
Laboratory Results
01/22/24
04:52
Sodium 141
Potassium 4.4
Chloride 103
Carbon Dioxide 30
BUN 32 H
Creatinine 0.9
Glucose 116 H
Calcium 9.0
Vital Signs:
Vital Signs
Temp Pulse Resp BP Pulse Ox
97.9 F 91 16 147/94 97
01/22/24 11:00 01/22/24 11:44 01/22/24 11:00 01/22/24 11:00 01/22/24 11:22
I&O
01/21/24 01/22/24 01/23/24
06:59 06:59 06:59
Intake Total 325 / 325 1979 / 1979
Output Total 1210 / 1210 550 / 550
Balance -885 / -885 1430 / 1430
[2024-01-22 13:35] LABS: Glucose - Point of Care 114 mg/dl (70-99)
[2024-01-22 15:00] VITALS: BP 130/73
--- NOTE | 2024-01-22 15:06 | W.PN.CD ---
Today's Communication / Plan
-
continue IV lasix
continue Toprol XL, digoxin, eliquis
Impression / Plan
-
SOB, hypoxia:
-requiring O2 by NC
-decreased requirement with lasix
-likely multifactorial in this patient with CHF, obesity, COPD, untreated CHAS, and atrial flutter.
Atrial flutter, typical:
-new diagnosis, onset unclear
-continue metoprolol succinate, dose has been increased: 100mg AM, 50mg PM
-s/p dig load; continue 250 mcg daily
-[id number] score is 5 for age, female, DM, HTN, and CHF. eliquis 5mg bid
-She isn't a great candidate for rhythm control, morbid obesity, untreated sleep apnea, COPD.
Wqvzu-tx-tsgiskk HFpEF with concurrent cor pulmonale:
-BNP elevated, weight up, CXR suggestive excess fluid, LE edema noted
-Contnue IV lasix, intensive monitoring
-CHF education
Obesity:
-severe/morbid
-would benefit from weight loss moving forward- she plans to resume diet
s/p TAVR:
-stable by echo,
HTN:
-BP has been variable, and was low initially
-on CCB, ACEI, BB as OP- holding CCB/ACEI for now.
-continue metoprolol
Subjective:
SOB and edema better.
Data:
TTE: 01/19/24 CONCLUSIONS
Contrast was used.
Hyperdynamic left ventricular systolic function. LV ejection fraction is 70-
75%.
Mild mitral stenosis.
s/p TAVR 29 mm Medtronic Evolut. Peak/mean gradients across the aortic valve
are 8/5 mmHg. No aortic regurgitation.
Enlarged right ventricular size. Reduced right ventricular systolic function.
Septal flattening in systole and diastole consistent with RV pressure and
volume overload.
Mild tricuspid regurgitation.
Moderately elevated PASP. Estimated pulmonary artery pressure of 45-50 mmHg
assuming a right atrial pressure of 15 mmHg.
Compared to 05/01/22: RV dysfunction is now present. PASP was unable to be
measured on prior study.
Physical Exam
Vital Signs/Labs
Vital Signs
Temp Pulse Resp BP Pulse Ox
97.9 F 91 16 147/94 93
01/22/24 11:00 01/22/24 11:44 01/22/24 11:00 01/22/24 11:00 01/22/24 14:09
01/21/24 01/22/24 01/23/24
06:59 06:59 06:59
Actual Weight 141.3 kg
01/21/24 04:56
01/22/24 04:52
PT 15.0 Sec (11.4-14.6) H 01/19/24 11:38
INR 1.18 01/19/24 11:38
APTT 29.2 Sec (23.4-35.0) 01/19/24 15:43
Magnesium 2.1 mg/dl (1.6-2.3) 01/21/24 04:56
01/19/24
09:51
Usk-J-Ytffbstptay Pept 2650
Physical Exam
Constitutional: No acute distress
EENT: Moist mucous membranes
Cardiovascular: Systolic murmur absent, Rhythm/rate is irregular, Pedal edema present and JVD present
Respiratory: Respiratory effort normal and Lungs clear to auscul.
Neuro/Psych: AO x 3
Data Reviewed
-
Date of Service: January 22, 2024
EKG: Other (Tele: Aflutter 80s-90s)
Labs: Labs Reviewed by me
[2024-01-22 16:38] LABS: Glucose - Point of Care 126 mg/dl (70-99)
[2024-01-22] MEDS: ASPIR LOW (ENTERIC COATED) 81 MG PO (17:13)
[2024-01-22 19:39] VITALS: BP 121/78
[2024-01-22] MEDS: TOPROL XL 50 MG PO (20:54)
[2024-01-22] MEDS: AMBIEN 5 MG PO (20:55)
[2024-01-22] MEDS: ELAVIL 50 MG PO (20:55)
[2024-01-22 21:59] LABS: Glucose - Point of Care 115 mg/dl (70-99)
[2024-01-22 23:27] VITALS: BP 140/98
[2024-01-23] VITALS (8 sets, daily range): BP systolic 102–159; BP diastolic 54–85; PULSE 90–123; O2SAT 91–95; BMI 49.0
[2024-01-23 07:10] LABS: Glucose - Point of Care 116 mg/dl (70-99)
[2024-01-23] MEDS: NOVOLOG FLEXPEN-MODERATE RESISTANCE SC ×3 (07:11→17:22)
[2024-01-23] MEDS: PULMICORT 0.5 MG INH ×2 (08:43→20:31)
[2024-01-23] MEDS: SPIRIVA RESPIMAT 2.5 MCG 2 PUFF INH (08:44)
[2024-01-23] MEDS: STRIVERDI RESPIMAT 2 PUFF INH (08:44)
[2024-01-23] MEDS: LIPITOR 10 MG PO (09:08)
[2024-01-23] MEDS: FEOSOL 325 MG PO (09:08)
[2024-01-23] MEDS: CYMBALTA DELAYED RELEASE 60 MG PO (09:08)
[2024-01-23] MEDS: ELIQUIS 5 MG PO ×2 (09:09→20:28)
[2024-01-23] MEDS: LASIX 40 MG IV ×2 (09:09→16:01)
[2024-01-23] MEDS: TOPROL XL 100 MG PO (09:09)
[2024-01-23] MEDS: DESENEX/MITRAZOL/ZEASORB 1 APPLIC TOPICAL ×2 (09:13→20:27)
[2024-01-23 09:30] LABS: Blood Urea Nitrogen 24 mg/dl (7-17); Carbon Dioxide 27 mmol/L (22-30); Chloride 102 mmol/L (98-107); Estimated Creatinine Clearance 107 ml/min; Glucose 126 mg/dl (70-99); Potassium 4.1 mmol/L (3.5-5.1); Sodium 140 mmol/L (135-145); eGFR > 60.00
[2024-01-23 09:31] LABS: Hematocrit 49.3 % (37.0-47.0); Hemoglobin 16.1 g/dL (12.0-16.0); Mean Corp Hgb Conc. 32.7 g/dL (33.0-37.0); Mean Corpuscular Hgb 31.3 pg (27.0-31.0); Mean Corpuscular Volume 95.7 fL (81.0-99.0); Mean Platelet Volume 11.2 fL (7.4-10.4); Platelet Count 198 10^3/uL (130-400); Red Blood Cell Count 5.15 10^6/uL (4.20-5.40); Red Cell Dist. Width 14.8 % (11.5-14.5); White Blood Cell Count 7.1 10^3/uL (4.8-10.8)
--- NOTE | 2024-01-23 10:34 | W.PN.CD ---
Today's Communication / Plan
-
continue IV lasix, and assess for PO diuretic tomorrow
add farxiga
Impression / Plan
-
SOB, hypoxia: improved
-requiring O2 by NC
-decreased requirement with lasix
-likely multifactorial in this patient with CHF, obesity, COPD, untreated CHAS, and atrial flutter.
Atrial flutter, typical:
-new diagnosis, onset unclear
-continue metoprolol succinate, dose has been increased: 100mg AM, 50mg PM
-s/p dig load; continue 250 mcg daily
-NVOZq4CUTS score is 5 for age, female, DM, HTN, and CHF. eliquis 5mg bid
-She isn't a great candidate for rhythm control, morbid obesity, untreated sleep apnea, COPD.
Ajojc-iw-iqqunrx HFpEF with concurrent cor pulmonale:
-BNP elevated, weight up, CXR suggestive excess fluid, LE edema noted
-Contnue IV lasix 40mg bid, intensive monitoring of labs and tele
-add farxiga
-assess to transition to PO diuretic tomorrow: start with torsemide 40mg daily
Obesity:
-severe/morbid
-would benefit from weight loss moving forward- she plans to resume diet
s/p TAVR:
-stable by echo,
HTN:
-BP has been variable, and was low initially
-on CCB, ACEI, BB as OP- holding CCB/ACEI for now.
-continue metoprolol
Subjective:
SOB and edema continue to improve.
Data:
TTE: 01/19/24 CONCLUSIONS
Contrast was used.
Hyperdynamic left ventricular systolic function. LV ejection fraction is 70-
75%.
Mild mitral stenosis.
s/p TAVR 29 mm Medtronic Evolut. Peak/mean gradients across the aortic valve
are 8/5 mmHg. No aortic regurgitation.
Enlarged right ventricular size. Reduced right ventricular systolic function.
Septal flattening in systole and diastole consistent with RV pressure and
volume overload.
Mild tricuspid regurgitation.
Moderately elevated PASP. Estimated pulmonary artery pressure of 45-50 mmHg
assuming a right atrial pressure of 15 mmHg.
Compared to 05/01/22: RV dysfunction is now present. PASP was unable to be
measured on prior study.
Physical Exam
Vital Signs/Labs
Vital Signs
Temp Pulse Resp BP Pulse Ox
97.5 F 89 16 138/84 94
01/23/24 08:00 01/23/24 08:50 01/23/24 08:50 01/23/24 08:00 01/23/24 09:25
01/22/24 01/23/24 01/24/24
06:59 06:59 06:59
Actual Weight 137.58 kg
01/23/24 08:08
01/23/24 08:08
PT 15.0 Sec (11.4-14.6) H 01/19/24 11:38
INR 1.18 01/19/24 11:38
APTT 29.2 Sec (23.4-35.0) 01/19/24 15:43
Magnesium 2.1 mg/dl (1.6-2.3) 01/21/24 04:56
01/19/24
09:51
Sfy-X-Myzoehgrcad Pept 2650
Physical Exam
Constitutional: No acute distress and Comfortable
EENT: Moist mucous membranes
Cardiovascular: Systolic murmur absent, Rhythm/rate is irregular, Pedal edema present and JVD present
Respiratory: Respiratory effort normal and Lungs clear to auscul.
Neuro/Psych: AO x 3
Data Reviewed
-
Date of Service: January 23, 2024
EKG: Other (Tele: A flutter 80s-90s)
Labs: Labs Reviewed by co
--- NOTE | 2024-01-23 10:39 | W.PN.HOSP.TC ---
Today's Communication/Plan
-
Diuresis
Stop ASA
PT OT
Assessment / Plan
Assessment / Plan
68 year old female with a PMHx of COPD, HTN, HLD, Anxiety, CHAS, Valvular Disease s/p TAVR 2021 new onset Afib/A flutter w/ RVR (Doctor Of Radiology Dr. Otero)
CTA chest 01/19/2024-no PE. Bilateral hilar lymphadenopathy. Medicine lymphadenopathy unchanged. Dilated pulmonary artery system in the setting of pulmonary hypertension.
Echo 01/19/2024-hyperdynamic LV. EF 70 to 78%. Mild MS. Status post TAVR. No AI. Enlarged RV. Reduced RV systolic function. Septal flattening in systole and diastole consistent with RV pressure and volume overload. Mild TR. Moderate elevated
PASP 45 to 50 mmHg
CVS: S1-S2 regular
Chest: CTA B/L
Abdomen: Soft, NT ,Bowel sounds present
Extremities: trace edema, normal pulses
# Acute hypoxic respiratory failure
Oxygen has been weaned to 2 L
Likely secondary to acute heart failure preserved ejection fraction secondary to rapid rates
Mild to moderate pulmonary hypertension
Sleep apnea
Obesity hypoventilation
COPD/asthma-contributing
NO PE
# Acute on chronic heart failure preserved ejection fraction secondary to poorly controlled arrhythmia
New diagnosis of A flutter
In SR now
Normal TSH
Rate control-metoprolol XL 100 g in the morning 50 mg in the evening. Digoxin started
Eliquis started. Stop Aspirin.
Continue Lasix
Intake output charting and daily weights
Weight went from 147.4 kg to 137.58 kg. Unfortunately bed scale is not reliable
# Sleep apnea
Intolerant of CPAP
Discussed about surgical options-she will explore
Weight loss will also help
# Elevated AST and ALT-likely secondary to CHF. Repeat added on
# Hypertension-continue metoprolol. Hold lisinopril and amlodipine for rate control medicines
# Hyperlipidemia-continue statin
# Diabetes-was on metformin and glipizide. Hemoglobin A1c 6.6. Holding OHA. Currently on sliding scale coverage. Sugars stable
# COPD/asthma-continue Brovana/budesonide/Yupelri or equivalent and as needed nebulizers
# History of aortic stenosis status post TAVR
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
# Anxiety-continue amitriptyline and duloxetine
# Obesity with a BMI of 50-history of bariatric sleeve 2012
# Chronic back pain/fibromyalgia/osteoarthritis-on tramadol
# Insomnia-was on Ambien prior to admission. Very difficult situation as she is not able to use treatment for sleep apnea and has severe insomnia. Melatonin added.
# Ex-smoker
# CODE STATUS-full code
# DVT prophylaxis-Eliquis
D/W RN
D/W Cards
Called went to message.
Part of this note was created using voice recognition system. Occasional wrong word or��sound alike� substitutions may have inadvertently occurred due to the inherent limitations of voice recognition software. If noted kindly bring it to my
attention for correction.
Anticipated Discharge: Within 24 hours
Subjective/Interval History
-
Date of Service: January 23, 2024
Objective Data
-
Labs:
Laboratory Results
01/23/24
08:08
WBC 7.1
Hgb 16.1 H
Hct 49.3 H
Plt Count 198
Sodium 140
Potassium 4.1
Chloride 102
Carbon Dioxide 27
BUN 24 H
Creatinine 0.7
Glucose 126 H
Calcium 9.0
Vital Signs:
Vital Signs
Temp Pulse Resp BP Pulse Ox
97.5 F 89 16 138/84 94
01/23/24 08:00 01/23/24 08:50 01/23/24 08:50 01/23/24 08:00 09/22/24 09:25
I&O
01/22/24 01/23/24 01/24/24
06:59 06:59 06:59
Intake Total 1979 / 1979 1799 / 1799
Output Total 550 / 550
Balance 1430 / 1430 1800 / 1800
[2024-01-23] MEDS: FARXIGA 10 MG PO (11:14)
[2024-01-23] MEDS: LANOXIN 250 MCG PO (11:15)
[2024-01-23 11:21] LABS: ALT (SGPT) 31 U/L (0-35); AST (SGOT) 28 U/L (14-36); Albumin 3.6 g/dl (3.5-5.0); Alkaline Phosphatase 126 U/L (38-126); Direct Bilirubin 0.4 mg/dl (0.0-0.4); Total Bilirubin 1.5 mg/dl (0.2-1.3); Total Protein 6.3 g/dl (6.3-8.2)
[2024-01-23 11:58] LABS: Glucose - Point of Care 175 mg/dl (70-99)
[2024-01-23 13:33] LABS: Glucose - Point of Care 105 mg/dl (70-99)
--- NOTE | 2024-01-23 15:45 | CM ---
CM received consult for cost of Jardiance/Farxiga 10 mg- per ambulatory orders, 30 day supply $256.08 ([facility]), 90 day supply $336.08 ([facility]). Patient seen bedside, not comfortable with cost of medication. CM will confirm cost of medications
with patients prescription coverage ([phone]). CM informed that patient not found in [facility]. Patient seen again bedside, reports she is unsure who prescription plan is through, does not have card with her. CM left message with patients
pharmacy to confirm patients prescription coverage [phone]. CM will continue to follow for all discharge planning needs.
Plan; home with [facility], patient remains on O2, watch for home O2 needs.
[2024-01-23 17:20] LABS: Glucose - Point of Care 92 mg/dl (70-99)
[2024-01-23] MEDS: ASPIR LOW (ENTERIC COATED) 81 MG PO (17:22)
[2024-01-23] MEDS: TOPROL XL 50 MG PO (20:28)
[2024-01-23 21:09] LABS: Glucose - Point of Care 162 mg/dl (70-99)
[2024-01-23] MEDS: ELAVIL 50 MG PO (22:27)
[2024-01-23] MEDS: AMBIEN 5 MG PO (22:27)
[2024-01-23 22:51] LABS: Blood Urea Nitrogen 27 mg/dl (7-17); Calcium 9.4 mg/dl (8.4-10.2); Carbon Dioxide 26 mmol/L (22-30); Chloride 100 mmol/L (98-107); Estimated Creatinine Clearance 107 ml/min; Glucose 144 mg/dl (70-99); Potassium 4.1 mmol/L (3.5-5.1); Sodium 140 mmol/L (135-145); eGFR > 60.00
[2024-01-23 22:56] LABS: Magnesium 2.2 mg/dl (1.6-2.3)
[2024-01-24 03:42] VITALS: BP 134/72
[2024-01-24 06:45] VITALS: BMI 47.7
[2024-01-24 07:44] VITALS: BP 108/63
[2024-01-24] MEDS: PULMICORT 0.5 MG INH (08:15)
[2024-01-24] MEDS: SPIRIVA RESPIMAT 2.5 MCG 2 PUFF INH (08:15)
[2024-01-24] MEDS: STRIVERDI RESPIMAT 2 PUFF INH (08:15)
[2024-01-24] MEDS: DESENEX/MITRAZOL/ZEASORB 1 APPLIC TOPICAL (08:54)
[2024-01-24 09:05] LABS: Glucose - Point of Care 128 mg/dl (70-99)
[2024-01-24] MEDS: NOVOLOG FLEXPEN-MODERATE RESISTANCE SC (09:08)
[2024-01-24 09:13] LABS: Blood Urea Nitrogen 24 mg/dl (7-17); Calcium 9.7 mg/dl (8.4-10.2); Carbon Dioxide 27 mmol/L (22-30); Chloride 99 mmol/L (98-107); Estimated Creatinine Clearance 92 ml/min; Glucose 137 mg/dl (70-99); Potassium 4.2 mmol/L (3.5-5.1); Sodium 142 mmol/L (135-145); eGFR > 60.00
[2024-01-24] MEDS: CYMBALTA DELAYED RELEASE 60 MG PO (09:13)
[2024-01-24] MEDS: FARXIGA 10 MG PO (09:13)
[2024-01-24] MEDS: TOPROL XL 100 MG PO (09:13)
[2024-01-24] MEDS: LIPITOR 10 MG PO (09:13)
[2024-01-24] MEDS: LASIX 40 MG IV (09:14)
[2024-01-24] MEDS: ELIQUIS 5 MG PO (09:14)
[2024-01-24] MEDS: FEOSOL 325 MG PO (09:14)
--- NOTE | 2024-01-24 09:50 | W.PN.CD ---
Today's Communication / Plan
-
stable for discharge planning
metoprolol succinate: 100mg AM, 50mg PM
digoxin 250 mcg daily
eliquis 5mg bid
farxiga 10mg daily (pending pricing from case mgmt)
transition to torsemide 40mg daily
we stopped amlodipine and lisinopril this admission
she follow with [facility] and will need BMP and dig level in one week
Impression / Plan
-
SOB, hypoxia: improved
-requiring O2 by NC
-decreased requirement with lasix
-likely multifactorial in this patient with CHF, obesity, COPD, untreated CHAS, and atrial flutter.
Atrial flutter, typical: rate control
-new diagnosis, onset unclear
-continue metoprolol succinate, dose has been increased: 100mg AM, 50mg PM
-s/p dig load; continue 250 mcg daily
-[id number] score is 5 for age, female, DM, HTN, and CHF. eliquis 5mg bid
-She isn't a great candidate for rhythm control, morbid obesity, untreated sleep apnea, COPD.
Hvzcj-xm-selmcxc HFpEF with concurrent cor pulmonale: improved s/p IV lasix
-BNP elevated, weight up, CXR suggestive excess fluid, LE edema noted
-added farxiga 10mg daily
-transition to torsemide 40mg daily
Obesity:
-severe/morbid
-would benefit from weight loss moving forward- she plans to resume diet
s/p TAVR:
-stable by echo,
HTN:
-BP has been variable, and was low initially
-on CCB, ACEI, BB as OP; stopped CCB/ACEI
-continue metoprolol
Subjective:
SOB and edema are better.
Data:
TTE: 01/19/24 CONCLUSIONS
Contrast was used.
Hyperdynamic left ventricular systolic function. LV ejection fraction is 70-
75%.
Mild mitral stenosis.
s/p TAVR 29 mm Medtronic Evolut. Peak/mean gradients across the aortic valve
are 8/5 mmHg. No aortic regurgitation.
Enlarged right ventricular size. Reduced right ventricular systolic function.
Septal flattening in systole and diastole consistent with RV pressure and
volume overload.
Mild tricuspid regurgitation.
Moderately elevated PASP. Estimated pulmonary artery pressure of 45-50 mmHg
assuming a right atrial pressure of 15 mmHg.
Compared to 05/01/22: RV dysfunction is now present. PASP was unable to be
measured on prior study.
Physical Exam
Vital Signs/Labs
Vital Signs
Temp Pulse Resp BP Pulse Ox
98.6 F 95 18 108/63 92
01/24/24 07:44 01/24/24 08:17 01/24/24 08:17 01/24/24 07:44 01/24/24 08:17
01/23/24 01/24/24 01/25/24
06:59 06:59 06:59
Actual Weight 137.58 kg 133.951 kg
01/23/24 08:08
01/24/24 07:07
PT 15.0 Sec (11.4-14.6) H 01/19/24 11:38
INR 1.18 01/19/24 11:38
APTT 29.2 Sec (23.4-35.0) 01/19/24 15:43
Magnesium 2.2 mg/dl (1.6-2.3) 01/23/24 22:13
01/19/24
09:51
Une-A-Yopffoorqsr Pept 2650
Physical Exam
Constitutional: No acute distress and Comfortable
EENT: Moist mucous membranes
Cardiovascular: JVD pressure is normal, Systolic murmur absent, Rhythm/rate is irregular and Pedal edema present
Respiratory: Respiratory effort normal and Lungs clear to auscul.
Neuro/Psych: AO x 3
Data Reviewed
-
Date of Service: January 24, 2024
EKG: Other (Tele: atrial flutter 80s-90s)
Labs: Labs Reviewed by me
[2024-01-24 11:28] VITALS: BP 131/88
--- NOTE | 2024-01-24 11:30 | CM ---
Addendum entered by Allie Mejia 01/24/24 15:06:
Patient has been set up with home oxygen from [employer], 2 liters of oxygen and concentrator, and home with [facility].
Plan; Home with [facility]
Original Note:
stakeholder manager reached out to patient' insurance today to confirm cost of medication, [phone] , and confirmed cost of Farxiga 10 mg daily is $256.08 and Jardiance $256.08 for 10mg daily.
Plan; Will check on generic Farxiga.
[2024-01-24 11:57] LABS: Glucose - Point of Care 182 mg/dl (70-99)
[2024-01-24] MEDS: NOVOLOG FLEXPEN-MODERATE RESISTANCE 1 UNITS SC (13:05)
[2024-01-24] MEDS: LANOXIN 250 MCG PO (13:05)
--- NOTE | 2024-01-24 14:13 | W.PN.HOSP.TC ---
Addendum entered and electronically signed by Iesha Toro MD 01/24/24 14:34:
Dictation- [id number]
Addendum entered and electronically signed by Iesha Toro MD 01/24/24 14:20:
Once patient case manager arranges home oxygen patient can leave
Original Note:
Today's Communication/Plan
-
Home O2 eval
Discharge
Assessment / Plan
Assessment / Plan
68 year old female with a PMHx of COPD, HTN, HLD, Anxiety, CHAS, Valvular Disease s/p TAVR 2021 new onset Afib/A flutter w/ RVR (Electrical Engineering Intern Dr. Otero)
CTA chest 01/19/2024-no PE. Bilateral hilar lymphadenopathy. Medicine lymphadenopathy unchanged. Dilated pulmonary artery system in the setting of pulmonary hypertension.
Echo 01/19/2024-hyperdynamic LV. EF 70 to 78%. Mild MS. Status post TAVR. No AI. Enlarged RV. Reduced RV systolic function. Septal flattening in systole and diastole consistent with RV pressure and volume overload. Mild TR. Moderate elevated
PASP 45 to 50 mmHg
CVS: S1-S2 regular
Chest: CTA B/L
Abdomen: Soft, NT ,Bowel sounds present
Extremities: trace edema, normal pulses
# Acute hypoxic respiratory failure
Oxygen has been weaned to 2 L
Likely secondary to acute heart failure preserved ejection fraction secondary to rapid rates
Mild to moderate pulmonary hypertension
Sleep apnea
Obesity hypoventilation
COPD/asthma-contributing
NO PE
Home oxygen evaluation
# Acute on chronic heart failure preserved ejection fraction secondary to poorly controlled arrhythmia
New diagnosis of A flutter
In SR now
Normal TSH
Rate control-metoprolol XL 100 g in the morning 50 mg in the evening. Digoxin started
Eliquis started. Stopped Aspirin.
Continue Lasix
Intake output charting and daily weights
weight better
# Sleep apnea
Intolerant of CPAP
Discussed about surgical options-she will explore
Weight loss will also help
# Elevated AST and ALT-likely secondary to CHF. Repeat better. Hepatic congestion.
# Hypertension-continue metoprolol. Hold lisinopril and amlodipine for rate control medicines
# Hyperlipidemia-continue statin
# Diabetes-was on metformin and glipizide. Hemoglobin A1c 6.6. Holding OHA. Currently on sliding scale coverage. Sugars stable
# COPD/asthma-continue Brovana/budesonide/Yupelri or equivalent and as needed nebulizers
# History of aortic stenosis status post TAVR
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
# Anxiety-continue amitriptyline and duloxetine
# Obesity with a BMI of 50-history of bariatric sleeve 2012
# Chronic back pain/fibromyalgia/osteoarthritis-on tramadol
# Insomnia-was on Ambien prior to admission. Very difficult situation as she is not able to use treatment for sleep apnea and has severe insomnia. Melatonin added.
# Ex-smoker
# CODE STATUS-full code
# DVT prophylaxis-Eliquis
D/W RN
D/W Cards
More than 30 minutes spent in discharge including
Final examination of the patient
Summarizing hospital stay
Instructions for continuing care to all relevant caregivers
Preparation of discharge records, prescriptions, and referral forms
Total time spent (in minutes): 36 min
Part of this note was created using voice recognition system. Occasional wrong word or��sound alike� substitutions may have inadvertently occurred due to the inherent limitations of voice recognition software. If noted kindly bring it to my
attention for correction.
Anticipated Discharge: Today
Subjective/Interval History
-
Date of Service: January 24, 2024
Objective Data
-
Labs:
Laboratory Results
01/24/24
07:07
Sodium 142
Potassium 4.2
Chloride 99
Carbon Dioxide 27
BUN 24 H
Creatinine 0.8
Glucose 137 H
Calcium 9.7
Vital Signs:
Vital Signs
Temp Pulse Resp BP Pulse Ox
97.5 F 92 20 131/88 93
01/24/24 11:28 01/24/24 13:05 01/24/24 11:28 01/24/24 11:28 01/24/24 11:28
I&O
01/23/24 01/24/24 01/25/24
06:59 06:59 06:59
Intake Total 1800 / 1800 1200 / 1200
Balance 1800 / 1800 1200 / 1200
--- NOTE | 2024-01-24 14:18 | W.PN.UPDATE ---
Update Note
Progress Note Update
Patient is in need of oxygen at 2 liters/minute via nasal cannula due to pulse oximetry of 87% on room air with exertion. Oxygen will help to improve hypoxemia. Patient is mobile within the home. DuoNeb therapy , lasix have been tried and is
ineffective in treating hypoxemia related symptoms. Oxygen is needed to improve symptoms.
--- NOTE | 2024-01-24 15:00 | VNURNOTE ---
Faxed clinicals to Stevan at [facility]- [facility]. Pending confirmation from Stevan.
--- NOTE | 2024-01-24 15:07 | VNURNOTE ---
Stevan at [facility] confirmed paperwork rec'ed. She confirmed portable 02 delivered to pt at bedside.
[2024-01-24 15:48] VITALS: BP 114/88
[2024-01-24] MEDS: PREVNAR 20 0.5 ML IM (16:45)
--- NOTE | 2024-01-24 18:05 | W.DS.TRANS ---
DC Summary - Job Foreman
-
Discharge Instructions:
Discharge Diagnosis/Procedures CHF
Atrial flutter
Sleep apnea
Hypertension
High cholesterol
Diabetes
COPD
History of TAVR
Anxiety
Fibromyalgia
Diet 2 Gram Sodium,Restrict fluids to 48 oz
Activity As tolerated
Driving Restrictions As prior to admission
Blood Work Digoxin level and BMP in 1 week
Other Services VN
Specialty Instructions Weigh Daily
Instructions: *CBC Heart Failure Instructions
Stand-Alone Forms:
Changes to Home Medications: Yes
Discharge Medications:
DC Medications w/original date entered in [facility]
amitriptyline 25 mg tablet 50 mg PO HS Mental Health/Anxiety 03/05/09
duloxetine 60 mg capsule,delayed release 60 mg PO DAILY Mental Health/Anxiety 01/11/14
atorvastatin 10 mg tablet 10 mg PO DAILY High cholesterol 02/10/22
glipizide 2.5 mg tablet, extended release 24 hr 2.5 mg PO BID Diabetes 02/10/22
metformin 500 mg tablet 500 mg PO BID Diabetes 02/10/22
metoprolol succinate 50 mg tablet,extended release 24 hr 100 mg PO DAILY Blood pressure 02/10/22
revefenacin 175 mcg/3 mL solution for nebulization (Yupelri) 175 mcg inhalation R DAILY Lung/breathing issues 02/10/22
tramadol 50 mg tablet 50 mg PO TIDPRN PRN MODERATE pain 02/10/22
arformoterol 15 mcg/2 mL solution for nebulization (Brovana) 2 ml inhalation R BID Lung/breathing issues 04/02/22
budesonide 0.5 mg/2 mL suspension for nebulization 0.5 mg inhalation R BID Lung/breathing issues 04/02/22
cyanocobalamin (vitamin B-12) 2,500 mcg sublingual tablet (Vitamin B-12) 2,500 mcg sublingual DAILY Supplement 04/02/22
multivitamin 1 tab PO DAILY Supplement 04/02/22
calcium 500 mg (as carbonate)-vitamin D3 5 mcg (200 unit) tablet (Oyster Shell Calcium-Vitamin D3) 500 mg PO DAILY Supplement 04/08/22
albuterol sulfate 90 mcg/actuation aerosol inhaler 2 puff inhalation R Q6HPRN PRN SOB 01/19/24
biotin 10,000 mcg chewable tablet (Hair, Skin and Nails (biotin)) 10,000 mcg PO DAILY Supplement 01/19/24
apixaban 5 mg tablet (Eliquis) 5 mg PO BID Blood clot prevention/tx #60 tabs 01/24/24
digoxin 250 mcg (0.25 mg) tablet 250 mcg PO DAILY #30 tabs 01/24/24
metoprolol succinate 50 mg tablet,extended release 24 hr 50 mg PO DAILY@2000 Arrhythmia #30 tabs 01/24/24
polyethylene glycol 3350 17 gram oral powder packet (HealthyLax) 17 g PO DAILYPRN PRN constipation #0 ea 01/24/24
torsemide 20 mg tablet 40 mg (2 x 20 mg) PO DAILY Fluid retention/Swelling #30 tabs 01/24/24
zolpidem 10 mg tablet (Ambien) 5 mg (1/2 x 10 mg) PO HS Sleep #0 tabs 01/24/24
Home Medication Changes
Dig , Torsemide , Eliquis new
Metoprolol increased
Stopped Amlodipine, Lisinopril
Pending Results: No
--- NOTE | 2024-01-25 10:16 | W.HF.CON ---
Heart Failure
- LV Function
Left ventricular function study result: LV Ejection fraction >40%
Ejection Fraction Percentage: 70-75
- ARNI
Patient already on ARNI: No
Heart Failure ARNI Not Indicated: LV Ejection Fraction >/= 40%
- ACEI/ARB
Patient already on ACEI/ARB: No
Heart Failure ACEI/ARB Not Indicated: LV Ejection Fraction > 40%
- Beta Lazaro
Patient already on Evidence Based Beta Lazaro: Yes
- Mineralocorticord Receptor Antagonist
Patient already on MRA: No
Heart Failure MRA Not Indicated: LV Ejection Fraction > 40%
- SGLT-2 Inhibitor
Patient already on SGLT-2 Inhibitor: No
Heart Failure SGLT-2 Inhibitor Not Indicated: LV Ejection Fraction >40%
- Afib Anticoagulation
Patient already on Anticoagulation for Afib: Yes
- NYHA CHF Classification
NYHA CHF Classification Level: Class III - Symptoms w/ min exertion, interferes w/ nml daily activity
- ACC/AHA Stage
ACC/AHA Stage: Stage C: Symptomatic Heart Failure
== END 2024-01-24 18:30 | disposition home health service (06) | DRG 308 ==
LOC: 4 WEST ACU 11:58
PROVIDERS: Nurse Practitioner Family; Physician Assistant; ADMITTING PHYSICIAN Internal Medicine; ATTENDING PHYSICIAN Hospitalist; CONSULT PHYSICIAN Internal Medicine; EMERGENCY PHYSICIAN Emergency Medicine; FAMILY PHYSICIAN Family Medicine; OTHER PHYSICIAN Internal Medicine Critical Care Medicine
DX: I48.92 Unspecified atrial flutter (principal); I50.33 Acute on chronic diastolic (congestive) heart failure; J96.01 Acute respiratory failure with hypoxia; E66.2 Morbid (severe) obesity with alveolar hypoventilation; Z68.43 Body mass index [BMI] 50.0-59.9, adult; I48.91 Unspecified atrial fibrillation; J44.89 Other specified chronic obstructive pulmonary disease; E78.5 Hyperlipidemia, unspecified
CPT/HCPCS: 71045; 71275; 80048; 80053; 82248; 82805; 82962; 83036; 83735; 83880; 84100; 84443; 84484; 85025; 85027; 85610; 85730; 86803; 90677; 93005; 93306; 94640; 96365; 96375; 97163; 97167; 99291; G0009; Q9950; Q9967

== ENCOUNTER → 2024-02-25 13:30 | Outpatient (REF) | payer MEDICARE, OTHER, SELFPAY ==
[2024-02-25 16:51] LABS: Blood Urea Nitrogen 35 mg/dl (7-17); Calcium 9.1 mg/dl (8.4-10.2); Carbon Dioxide 31 mmol/L (22-30); Chloride 95 mmol/L (98-107); Glucose 187 mg/dl (70-99); Sodium 140 mmol/L (135-145); eGFR > 60.00
== END ==
LOC: CLAB 13:30
PROVIDERS: FAMILY PHYSICIAN Family Medicine
DX: I11.0 Hypertensive heart disease with heart failure (principal); I50.33 Acute on chronic diastolic (congestive) heart failure
CPT/HCPCS: 36415; 80048

== ENCOUNTER 2024-03-03 09:36 | Inpatient (IN) | payer MEDICARE, OTHER, SELFPAY ==
[2024-03-03] VITALS (30 sets, daily range): BP systolic 81–146; BP diastolic 49–104; PULSE 3–77
[2024-03-03 06:04] LABS: % Basophils 0.8 % (0-2); % Eosinophils 2.3 % (0-6); % Immature Granulocytes 0.5 % (0-0.5); % Lymphocytes 26.1 % (20.5-51.1); % Monocytes 10.5 % (1.7-9.3); % Neutrophils 59.8 % (42.2-75.2); Absolute Basophils 0.1 10^3/uL (0-0.2); Absolute Eosinophils 0.2 10^3/uL (0-0.7); Absolute Immature Granulocytes 0.1 10^3/uL (0-0.05); Absolute Lymphocytes 2.5 10^3/uL (1.2-3.4); Absolute Neutrophils 5.7 10^3/uL (1.4-6.5); Hematocrit 49.2 % (37.0-47.0); Hemoglobin 16.8 g/dL (12.0-16.0); Mean Corp Hgb Conc. 34.1 g/dL (33.0-37.0); Mean Corpuscular Hgb 31.5 pg (27.0-31.0); Mean Corpuscular Volume 92.3 fL (81.0-99.0); Mean Platelet Volume 10.7 fL (7.4-10.4); Nucleated Red Blood Cells % 0.4 %; Platelet Count 218 10^3/uL (130-400); Red Blood Cell Count 5.33 10^6/uL (4.20-5.40); White Blood Cell Count 9.5 10^3/uL (4.8-10.8)
--- NOTE | 2024-03-03 06:19 | ED.GENMED ---
History of Present Illness
General
Chief Complaint: Breathing Problem
Source: patient and spouse
Exam Limitations: none
Time Seen by Provider: 03/03/24 05:54
History of Present Illness
History of Present Illness:
Patient on chronic home oxygen therapy presents with abdominal pain and some lower extremity agitation. Started in the middle the night. No change in shortness of breath. This is chronic and stable per the patient and
Past History
Past History
ED Past Medical History: Asthma, COPD, GERD, HTN, NIDDM and Valvular disease
ED Past Surgical History: Cardiac and Orthopedic
Social History
Tobacco: Non-smoker
Alcohol: Occasional
Drug: None
Personal:
Living: with family
Review of Systems
Review of Systems
All Other Systems: Not applicable
Constitutional: Denies fever or chills
Cardiac: Denies chest pain or syncope
ABD/GI: Denies bloody stools or black stools
Phy Exam
Physical Exam
Physical Exam:
GENERAL: Alert and oriented in no apparent distress
EYE: Orbits normal.
NECK: Supple
ENT: Pharynx without erythema
CARDIAC: Irregular irregular
LUNGS: No respiratory distress. Decreased breath sounds diffusely. Currently on 3 L nasal cannula. Hypoxic on 3 L.
ABDOMEN: Elevated BMI. Bowel sounds present. Nonlocalizing tenderness mostly in the lower quadrants but difficult to localize. No rebound or guarding no mass or hernia
NEUROLOGICAL: Alert and oriented , grossly non-focal. Agitated.
SKIN: Warm and dry, no rash or lesion, no discoloration, skin intact.
MUSCULOSKELETAL: Chronic edema.
PSYCH: Normal and appropriate interaction.
Scores
Heart Failure Risk
Heart Failure Risk Score: Not Applicable
Course
Orders/Labs/Results
Orders:
Orders
03/03/24 05:31
EKG [Electrocardiogram (*1)] Urgent
Reason for Study: Shortness of Breath
EKG- Treatment ONCE
03/03/24 05:51
Complete Blood Count/With Diff Urgent
Comprehensive Metabolic Panel Urgent
Digoxin Urgent
Comment: ADD ON
Direct Bilirubin Urgent
Comment: ADD ON
Free T3 Urgent
Comment: ADD ON
Free T4 Urgent
Hepatitis B Core Ab, Total Urgent
Comment: ADD ON
Hepatitis B Surface Antibody Urgent
Comment: ADD ON
Hepatitis B Surface Antigen Urgent
Comment: ADD ON
Hepatitis C Antibody Urgent
Comment: ADD ON
LDH Urgent
Comment: ADD ON
Lipase Urgent
Magnesium Urgent
Comment: ADD ON
NT-proBNP Urgent
TSH Reflex To Free T4 Urgent
Comment: ADD ON
Troponin I Urgent
03/03/24 05:54
Cardiac Monitoring- Treatment ONCE
IV Insert/Care/Rem.- Treatment PRN
Lactic Acid Urgent
Pulse Ox/cont/shift [RESP] Stat
Quantity: 1
03/03/24 05:55
EKG- Treatment ONCE
03/03/24 05:56
CXR Port [CR Chest Portable - 1 View] Urgent
Comment:
Reason For Exam: hypoxia
Reason Study Needs to be Portable: Patient Unstable
03/03/24 06:00
Straight cath- Treatment ONCE
03/03/24 06:12
ABG [Arterial Blood Gas] Urgent
%Oxygen/Room Air: 3l
Urinalysis Reflex To Culture Urgent
Date Specimen was Collected: 03/03/24
Time Specimen was Collected: 06:02
Urine Microscopic Reflex Cult Urgent
03/03/24 06:18
Lorazepam [Ativan] 2 mg .ROUTE .STK-MED ONE
03/03/24 06:19
Lorazepam [Ativan] 0.5 mg IV NOW STA
03/03/24 06:40
CT Abd/pelvis Angio W/wo Iv Urgent
Comment:
Reason For Exam: Mid abdominal pain/elevated lactic acid
03/03/24 06:43
Potassium Chloride 10% Elixir [KCl Elixir] 40 meq PO NOW STA
03/03/24 06:44
Add On- LAB Urgent
Tests Added?: dogoxin level
03/03/24 07:05
Lorazepam [Ativan] 0.5 mg IV NOW STA
03/03/24 07:30
INR [Prothrombin Time] Urgent
03/03/24 08:25
CT Head W/o Iv Contrast Urgent
Comment:
Reason For Exam: change in ms
03/03/24 08:28
Add On- LAB Stat
Tests Added?: Magnesium serum, TSH with reflex FT4, HgbA1c
03/03/24 08:32
Dag Sprayer Consult Urgent
Consulting Provider: Wendy Bonilla
Was physician already notified: Yes
Reason for consult: hyperventilation with agitation and hypoxia
Cefepime HCl [Maxipime] 2,000 mg IV NOW STA
03/03/24 08:33
NEUROLOGY CONSULT Routine
Consulting Provider: Rosa Osorio
Was physician already notified: Yes
Reason for consult: agitation
03/03/24 08:41
PSYCHIATRY CONSULT Routine
Consulting Provider: Bebeto Benson
Was physician already notified: Yes
Reason for consult: akathysia
03/03/24 09:03
Vancomycin [Vancocin] 2,000 mg 0.9% Sodium Chloride 500 ml [Nss] 500 ml IV NOW
03/03/24 09:08
0.9% Sodium Chloride 250 ml [Nss] 250 ml IV BOLUS
03/03/24 09:13
COVID-19 Antigen Stat
Source: Nasal Swab
Blood Culture Q30M
MAUREEN Source: Blood/Venous
Specimen Description:
Blood Culture Q30M
MAUREEN Source: Blood/Venous
Specimen Description:
Influenza A+B Rapid Molecular Stat
MAUREEN Source: Nasal Swab
Specimen Description:
03/03/24 09:15
Admit/Transfer Patient As Directed
Co-Sign Provider:
Level of Care: Inpatient admission
Assign to:: ICU
Physician / Group: Hospitalist
Diagnosis: Akathisia, respiratory failure
Reason for Hospitalization: Akathisia, respiratory failure
Expected length of stay greater than two midnights?: Yes
ELOS- Estimated Length of Stay in days: 2
I certify the patient meets the requirements for IP care: Yes
03/03/24 09:16
PRN Pain Medication Management As Directed
May give lesser potent ordered pain med per pt: Yes
preference::
Protocol:: Medication orders for pain may be administered in a
manner that supports deferring to patient preference
when the pt is:
- Requesting an ordered lesser potent pain medication.
Least to most potent pain medications are defined
as: acetaminophen < NSAID < tramadol < opioids
(morphine, oxycodone, hydromorphone).
- Requesting a lesser dose of the same medication IF
ORDERED.
- Requesting a less intrusive route of administration
if both routes are prescribed by the provider (PO <
IV).
03/03/24 09:21
Code Status As Directed
Resuscitation Status: Full Code
03/03/24 09:31
Magnesium Sulfate 4 Gram/100Ml [Magnesium Sulfate] 4 gram in 100 ml IV NOW
03/03/24 10:00
Piperacillin/Tazo 3.375 Gram [Zosyn] 3.375 gram in 50 ml IV Q6H
VANCOMYCIN Pharmacy to Dose [VANCOCIN Pharmacy to Dose] 1 each Pharmacy To Prepare [Call Pharmacy To Prepare] 0 ml IV PER PROTOCOL
03/03/24 12:07
Acetaminophen [Tylenol] 650 mg PO Q4HPRN PRN
Albuterol [ProAIR HFA INHALER] 2 puff INH R Q6HPRN PRN
Bisacodyl [Dulcolax] 10 mg RECTAL [id number] PRN
Dextrose 50%-Water [Dextrose 50% Syringe] 12.5 grams IV [id number] PRN
Docusate W/Senna [Senokot-S] 1 tablet PO BIDPRN PRN
Glucagon [GlucaGen] 1 mg IM PRN PRN
Insulin Aspart Corrective Low [Novolog Flexpen-Low Resistance] See Protocol SC AC
Oxycodone [Roxicodone] 5 mg PO Q4HPRN PRN
Polyethylene Glycol Powder [Miralax] 17 grams PO DAILYPRN PRN
03/03/24 12:07
Activity As Directed
Activity Level: Out of Bed-Early Mobility
Bedside Glucose Monitoring As Directed
Frequency: AC&HS
Additional Instructions:: Change to q6h if pt on TPN, tube feeding or not eating
Vital Signs As Directed
Frequency: Per unit guidelines
O2 Therapy [RESP] Routine
Titrate/Wean O2 to maintain O2 sat greater than (%): 90
Speech screening from Nursing [Speech Screening from [facility]] Routine
03/03/24 13:15
Potassium Chloride [KCl] 40 meq 0.9% Sodium Chloride 250 ml [Nss] 250 ml IV ONCE
03/03/24 Dinner
2000 calorie (17 carb) Diabetic
At Your Request: Limited Participation
03/03/24 15:54
Lactic Acid Q6H
03/03/24 16:00
Albuterol Nebs [Ventolin Nebules] 2.5 mg INH R QID
03/03/24 18:00
Atorvastatin [Lipitor] 10 mg PO QPM
Warfarin [Coumadin] 2.5 mg PO QPM
03/03/24 20:00
Budesonide [Pulmicort] 0.5 mg INH R BID
03/03/24 22:00
Metoprolol Xl [Toprol Xl] 50 mg PO HS
03/04/24 05:01
Complete Blood Count/With Diff IN AM
Comprehensive Metabolic Panel IN AM
Lactic Acid Q6H
Magnesium IN AM
Prothrombin Time IN AM
03/04/24 08:00
Digoxin [Lanoxin] 125 mcg PO DAILY
Metoprolol Xl [Toprol Xl] 100 mg PO DAILY
Tiotropium [place] 2.5 Mcg [Spiriva Respimat 2.5 Mcg] 2 puff INH R DAILY
Torsemide [Demadex] 60 mg PO DAILY
03/05/24 06:00
Prothrombin Time IN AM
03/06/24 06:00
Prothrombin Time IN AM
03/07/24 06:00
Prothrombin Time IN AM
03/08/24 06:00
Prothrombin Time IN AM
Abnormal Lab Results
03/03/24 03/03/24 03/03/24
05:51 05:54 06:12
Hgb 16.8 H g/dL
(12.0-16.0)
Hct 49.2 H %
(37.0-47.0)
MCH 31.5 H pg
(27.0-31.0)
RDW 17.0 H %
(11.5-14.5)
MPV 10.7 H fL
(7.4-10.4)
Abs Immat Gran (auto) 0.1 H 10^3/uL
(0-0.05)
Absolute Monos (auto) 1.0 H 10^3/uL
(0.1-0.6)
Monocytes % 10.5 H %
(1.7-9.3)
PT
pH 7.50 H
(7.35-7.45)
pCO2 38 H mmHg
(32-35)
pO2 55 L* mmHg
(83-108)
HCO3 29.6 H mmol/L
(21-28)
ABG O2 Sat (Measured) 87.3 L %
(94-98)
Potassium 3.0 L mmol/L
(3.5-5.1)
Chloride 97 L mmol/L
(98-107)
BUN 44 H mg/dl
(7-17)
Creatinine 1.2 H mg/dL
(0.6-1.0)
Glucose 168 H mg/dl
(70-99)
Lactic Acid 2.8 H mmol/L
(0.7-2.0)
Magnesium 1.4 L mg/dl
(1.6-2.3)
Total Bilirubin 2.1 H mg/dl
(0.2-1.3)
Direct Bilirubin 0.8 H mg/dl
(0.0-0.4)
AST 37 H U/L
(14-36)
Alkaline Phosphatase 183 H U/L
(38-126)
Lactate Dehydrogenase 415 H U/L
(120-246)
TSH (Reflex) 0.11 L uIU/ml
(0.47-4.68)
Urine Bilirubin 1+ A
(Negative)
Urine Urobilinogen 3+ A
(Neg - 1+)
Leukocyte Esterase Rfl Trace A
(Negative)
Urine Albumin (Reflex) 2+ A
(Neg - Trace)
Digoxin 0.7 L ng/ml
(0.8-2.0)
03/03/24
07:30
Hgb
Hct
MCH
RDW
MPV
Abs Immat Gran (auto)
Absolute Monos (auto)
Monocytes %
PT 19.7 H Sec
(11.4-14.6)
pH
pCO2
pO2
HCO3
ABG O2 Sat (Measured)
Potassium
Chloride
BUN
Creatinine
Glucose
Lactic Acid
Magnesium
Total Bilirubin
Direct Bilirubin
AST
Alkaline Phosphatase
Lactate Dehydrogenase
TSH (Reflex)
Urine Bilirubin
Urine Urobilinogen
Leukocyte Esterase Rfl
Urine Albumin (Reflex)
Digoxin
03/03/24 05:51
03/03/24 05:51
Vital Signs
Initial and Last Documented VS:
Initial Vital Signs
Pulse Resp BP
75 20 146/104
03/03/24 05:37 03/03/24 05:37 03/03/24 05:37
Last Documented Vital Signs
Temp Pulse Resp BP Pulse Ox
97.6 F 69 20 125/71 95
03/04/24 03:30 03/04/24 05:00 03/04/24 05:00 03/04/24 05:00 03/04/24 02:00
MDM/Problems Addressed
Differential Diagnosis Includes:
Patient complaining of vague abdominal pain. Etiology unknown certain at this time. Workup in progress. Large differential including appendicitis diverticulitis early bowel obstruction. As far as her respiratory status, she is on 3 L nasal
cannula at home but states that her pulse ox is only 1 in the low 80s normally. We will check an ABG. She states she is in no respiratory distress at this time. However appears chronically hypoxic. Doubt primary cardiac etiology although
workup also in progress for this.
*Radiology
Radiology exam reviewed: radiology read reviewed (No acute findings on head CT or abdominal CTA)
*Pulse Oximetry
Patient hypoxic: yes
*EKG
Interpreted by ED Provider?: Yes
Interpretation: abnormal
Comparison EKG: changes noted
Heart Rate: 81
Rate: normal
Rhythm: a-fib and PVC's
[facility]: normal axis
Interval: normal interval
QRS Pattern: right bundle branch block (inc)
Ischemia: non-specific ST changes
*Critical Care Note
Total Time (30-74mins, 75-104mins- exclusive of procedures): 45
Data Reviewed
Review of Other/Old Records Reveals: Labs, Records, Radiology Studies, Testing and Discharge Summary
Update Note
Update Note:
0640.... Patient very agitated. Mostly feeling the urge to urinate. Very jittery. This apparently has been going on to some degree per the . They stopped her trazodone and started amitriptyline yesterday. With the elevated lactic acid I
changed her to a CT angio from the CT chest with IV contrast. She likely has a small component of chronic CHF but I do not feel this is likely the cause of her abdominal symptoms. Clearly warrants admission.
0830.... Multiple rechecks of this patient. Discussed intubation with the family and patient. This is drifted from an abdominal pain agitation but more agitation and mental status change. However her color and appearance are apparently baseline
per the . Her ABG or possibly VBG shows reasonable ventilation but poor oxygenation. I spent a prolonged time in CT helping to keep her still for the CT angio which is unremarkable. We will send her back for a head CT. Currently we will
hold off on intubation but needs to be watched closely
ED Attending Note
-
Portions of this chart may have been created with voice recognition software.� Occasional wrong word or��sound alike� substitutions may have occurred due to the inherent limitations of voice recognition software.
Discharge Plan
Departure
Patient Disposition: Admit
Date of Disposition: 03/03/24
Time of Disposition: 08:03
Presentation/result/management discussed w/ accepting MD/DO: Hospitalist
Discharge Problem:
Severe agitation/transient abdominal coni, Acute on chronic respiratory failure, Elevated lactic acid, Hypokalemia
Interventions
Interventions:
*Risk Screen - Suicide Last Done: 03/03/24 05:37
*General Assessment Last Done: 03/03/24 06:10
*Neglect/Abuse Screening Last Done: 03/03/24 05:37
ED- Fall Risk Assessment Last Done: 03/03/24 12:01
*ED COVID-19 Vaccine History Last Done: 03/03/24 05:37
*Nursing Disposition Last Done: 03/03/24 12:01
ED- Cardiac Assessment Last Done: 03/03/24 06:10
ED- Pulmonary Assessment Last Done: 03/03/24 06:10
Discharge Date and Time
Discharge Date/Time: 03/03/24 12:02
[2024-03-03] MEDS: ATIVAN 0.5 MG IV ×2 (06:20→07:10)
[2024-03-03 06:21] LABS: B.E. 6.1 mmol/L; HCO3 29.6 mmol/L (21-28); O2 Saturation % 87.3 % (94-98); PCO2 38 mmHg (32-35)
[2024-03-03 06:26] LABS: Lactic Acid 2.8 mmol/L (0.7-2.0)
[2024-03-03 06:29] LABS: NT-proBNP 3690 pg/ml
[2024-03-03 06:29] LABS: O2 Therapy 3L NC; PO2 55 mmHg (83-108)
[2024-03-03 06:38] LABS: ALT (SGPT) 29 U/L (0-35); AST (SGOT) 37 U/L (14-36); Alkaline Phosphatase 183 U/L (38-126); Blood Urea Nitrogen 44 mg/dl (7-17); Calcium 10.2 mg/dl (8.4-10.2); Carbon Dioxide 26 mmol/L (22-30); Chloride 97 mmol/L (98-107); Glucose 168 mg/dl (70-99); Lipase 74 U/L (23-300); Sodium 141 mmol/L (135-145); Total Bilirubin 2.1 mg/dl (0.2-1.3); Total Protein 7.1 g/dl (6.3-8.2)
[2024-03-03 06:46] LABS: Troponin I < 0.012 ng/ml
[2024-03-03 07:04] LABS: Digoxin 0.7 ng/ml (0.8-2.0)
[2024-03-03 07:09] LABS: Urine Albumin 2+ (Neg - Trace); Urine Bilirubin 1+ (Negative); Urine Character Clear (Clear); Urine Color Yellow; Urine Glucose Negative (Negative); Urine Ketone Negative (Negative); Urine Leukocyte Trace (Negative); Urine Nitrite Negative (Negative); Urine Occult Blood Negative (Negative); Urine Specific Gravity 1.015 (<1.030); Urine Urobilinogen 3+ (Neg - 1+)
[2024-03-03 08:43] LABS: INR 1.69; PT 19.7 Sec (11.4-14.6)
[2024-03-03 08:51] LABS: Urine Mucus Few
[2024-03-03 08:52] LABS: Urine Amorphous Seen; Urine Hyaline Cast >15 /LPF (0-2); Urine Urothelial Cell 0-2 /LPF (FEW)
[2024-03-03 08:53] LABS: Urine Red Blood Cell 0-2 /HPF (0-2); Urine White Cell 0-2 /HPF (0-5)
[2024-03-03 09:03] LABS: Magnesium 1.4 mg/dl (1.6-2.3)
[2024-03-03] MEDS: MAXIPIME 2000 MG IV (09:05)
[2024-03-03] MEDS: ZOSYN 50 IV ×3 (09:28→21:46)
--- NOTE | 2024-03-03 09:28 | HPS.HSE ---
Addendum entered and electronically signed by Maurisio Mari MD 03/03/24 10:35:
#Elevated bilirubin
seen in Sept
follow trend
hepatitis panel
follow LFT
GI consult if persistent or worsening
#Chronic elevation of alk.phos
US RUQ
#Liver lesion
MRI when resolved acute disease
#Subclinical hyperthyroidism vs euthyroid sick syndrome
FT4 WNL
Check Ft3
Original Note:
Family Physician
-
Family Physician: Sanjay Carrera
Chief Complaint
-
agitation
History of Present Illness
68yo F with PMHx of COPD, HTN, HLD, anxiety, CHAS intollerant to CPAP, s/p TAVR, Afib on coumadin, pulmonary HTN, chronic hypoxic respiratory failure on 3L home O2, HFpEF brought by her with mild agitation and irresistible ordonez to move
started this AM. Patient also c/o vague abdominal discomfort on arrival, however later during this admission it completely resolved. Mild elevation of Cr and hypokalemia with mild elevation of lactate noted. Also was having urge to urinate, however
with the straight cath - minimal amount of urine. Medication managed by
Medical History
Past Medical History
Past Medical History: Reports Other
Additional Past Medical History:
see HPI
Past Surgical History: Reports None
Social History
Tobacco: Non-smoker
Alcohol: None
Drug: None
Family History
Family History: Not pertinent
Allergies / Home Medications
Allergies reflects when Allergies were last updated in [facility].
Home Medications with original date entered in [facility]
Allergy/Medication List:
Allergies
Allergy/AdvReac Type Severity Reaction Status Date / Time
amoxicillin trihydrate Allergy patient Verified 03/03/24 05:37
[From Augmentin] states
severe
nausea and
intestinal
pain
cat dander Allergy Sinus Verified 03/03/24 05:37
congestion
cigarette smoke Allergy Positive Verified 03/03/24 05:37
skin test
to tobacco
dog dander Allergy Sinus Verified 03/03/24 05:37
congestion
grass pollen Allergy Sinus Verified 03/03/24 05:37
congestion,
cough
levofloxacin [From Levaquin] Allergy GI Symptoms Verified 03/03/24 05:37
mold Allergy Sinus Verified 03/03/24 05:37
congestion,
cough
Sulfa (Sulfonamide Allergy INTESTINAL Verified 03/03/24 05:37
Antibiotics) PAIN
tree and shrub pollen Allergy Sinus Verified 03/03/24 05:37
congestion,
cough
Home Medications
amitriptyline 25 mg tablet 50 mg PO HS Mental Health/Anxiety 03/05/09
duloxetine 60 mg capsule,delayed release 60 mg PO DAILY Mental Health/Anxiety 01/11/14
atorvastatin 10 mg tablet 10 mg PO QPM High cholesterol 02/10/22
glipizide 2.5 mg tablet, extended release 24 hr 2.5 mg PO BID Diabetes 02/10/22
metformin 500 mg tablet 500 mg PO BID Diabetes 02/10/22
metoprolol succinate 50 mg tablet,extended release 24 hr 100 mg PO DAILY Blood pressure 02/10/22
revefenacin 175 mcg/3 mL solution for nebulization (Yupelri) 175 mcg inhalation R DAILY Lung/breathing issues 02/10/22
tramadol 50 mg tablet 50 mg PO DAILY 02/10/22
arformoterol 15 mcg/2 mL solution for nebulization (Brovana) 2 ml inhalation R BID Lung/breathing issues 04/02/22
budesonide 0.5 mg/2 mL suspension for nebulization 0.5 mg inhalation R BID Lung/breathing issues 04/02/22
cyanocobalamin (vitamin B-12) 2,500 mcg sublingual tablet (Vitamin B-12) 2,500 mcg sublingual DAILY Supplement 04/02/22
multivitamin 1 tab PO DAILY Supplement 04/02/22
calcium 500 mg (as carbonate)-vitamin D3 5 mcg (200 unit) tablet (Oyster Shell Calcium-Vitamin D3) 500 mg PO DAILY Supplement 04/08/22
biotin 10,000 mcg chewable tablet (Hair, Skin and Nails (biotin)) 10,000 mcg PO DAILY Supplement 01/19/24
albuterol sulfate 90 mcg/actuation aerosol inhaler 2 puff inhalation R Q6HPRN PRN sob 03/03/24
digoxin 250 mcg (0.25 mg) tablet 0.125 mcg PO DAILY 03/03/24
metoprolol succinate 50 mg tablet,extended release 24 hr 50 mg PO HS Arrhythmia 03/03/24
torsemide 20 mg tablet 60 mg PO DAILY Fluid retention/Swelling 03/03/24
warfarin 2.5 mg tablet 2.5 mg PO QPM 03/03/24
Review of Systems
-
History Source: Patient and Family
A 12 point ROS was completed and negative except as noted: Yes
Neurological: Reports See HPI
Physical Exam
Vital Signs
Vital Signs
Pulse Resp BP Pulse Ox
87 21 134/71 92
03/03/24 06:01 03/03/24 06:01 03/03/24 06:01 03/03/24 08:44
Physical Exam
General: No Apparent Distress, Appears in Distress and Obese
HEENT: Anicteric and Atraumatic; No Moist mucous membranes
Respiratory: Clear; No Wheezes, Rales or Rhonchi
Cardiac: S1/S2 and Irregular Rhythm; No Tachycardia
GI: Soft, Non Tender, Non Distended and Normal Bowel Sounds
Genito-urinary: No costovertebral tender
Musculoskeletal: No Clubbing, No Cyanosis and No Edema
Skin: Warm and Dry; No Rash or Jaundice
Neuro: Awake, Alert, Oriented, AO x 3 and No Motor Deficits
Psych: Calm and Confused
Laboratory Results
-
03/03/24 05:51
03/03/24 05:51
Laboratory Results
PT 19.7 Sec (11.4-14.6) H 03/03/24 07:30
INR 1.69 03/03/24 07:30
pH 7.50 (7.35-7.45) H 03/03/24 06:12
pCO2 38 mmHg (32-35) H 03/03/24 06:12
pO2 55 mmHg (83-108) L* 03/03/24 06:12
HCO3 29.6 mmol/L (21-28) H 03/03/24 06:12
Lactic Acid 2.8 mmol/L (0.7-2.0) H 03/03/24 05:54
Total Bilirubin 2.1 mg/dl (0.2-1.3) H 03/03/24 05:51
AST 37 U/L (14-36) H 03/03/24 05:51
ALT 29 U/L (0-35) 03/03/24 05:51
Alkaline Phosphatase 183 U/L (38-126) H 03/03/24 05:51
Troponin I < 0.012 ng/ml 03/03/24 05:51
Lipase 74 U/L (23-300) 03/03/24 05:51
Impression/Plan
-
A/P:
#Akathisia with mild confusion, concern for early toxic metabolic encephalopathy with possible UTI
Anxiety d/o
CT head showed hemangioma
NEurology and Psych consult
hold Amitriptiline
Cont duloxetine
check TSH
follow UA and start Vanco/Zosyn
check Bcx
Hold tramadol to avoid risk of serotonin syndrom - use oxycodone PRN, watch for respiratory suppression
Speech screening by RN
#Acute on chronic hypoxic respiratory failure, most likely 2/2 agitation and tachypnea
#COPD, no clear exacerbation since no wheezing
#Chronic HFpEF
#CHAS not tolerat of CPAP
#Pulmonary HTN 2/2 COPD
Pulm consult, cont O2, cont bronchodilators
with wirsening failure might need intubation, will follow clinically
Patient with dry mouth, no LE swelling, possible overdiuresis - gentle hydration with bolus of NS 250ml
#Abd pain
CTA in ED done, but poor quality 2/2 movements
No gross abnormality
Lipase WNL
#Hypokalemia
#Elevated Cr without AIYANA
possible 2/2 diuretics
replete and follow
Check Mg
#Elevated lactate without acidosis
possibly 2/2 hypoxia and metformin with mild dehydration
follow lactate
#Subtherapeutic INR
#AFib, persistent
recently with INR>7 as oper , so Coumadin held for three days, restarted on Wednesday
Cont coumadin and follow INR, slowly increase dose
telemetery
Digoxin level WNL, cont doigoxin
#chronic erythrocytosis 2/2 CHAS and most likely chronic hypoxia
follow CBC
#DM type 2 with neuroapthy
Accuchecks, Insulin SS, DM diet, check HgbA1c
hold Glipizide
#HLD
cont meds
#Obesity
BMI 48.2
advise to decrease calorie intake
DVT ppx on Coumadin
FUll code as per discussion with and patient bedside
I have spent at least 78min reviewing chart, test results, communication with consultants and direct patient care
--- NOTE | 2024-03-03 09:32 | CON.PUL ---
Consultation
Consultation Request
Date/Time Consultation Requested: 03/03/24
Date/Time Consultation Performed: 03/03/24
Performing Provider: Gerry
Reason for Consultation: SOB
Medical History
-
History of Present Illness:
Patient is a 68 year old F with PMHx of COPD, HTN, HLD, anxiety, CHAS intolerant to CPAP, s/p TAVR, Afib on coumadin, pulmonary HTN, chronic hypoxic respiratory failure on 3L home O2, HFpEF brought by her with mild agitation and
restlessness. Patient also c/o vague abdominal discomfort on arrival, however later during this admission it completely resolved. notes she has not quite been herself in the past few days, he notes she has not slept well in years. On
arrival to ER, there is noted mild elevation of creatinine, lactate and hypokalemia
Patient has been having urinary retention as well, notes she was doing well on diuretics but then stopped voiding in the past few days despite increased dose. proBNP 3690, CXR unchanged compared to prior.
.
Past Medical History
Past Medical History: Other (see list below)
Social History
Tobacco: Non-smoker
Alcohol: None
Drug: None
Family History
Family History: Reviewed & Not Pertinent
Allergies / Home Medications
Allergies
Allergy/AdvReac Type Severity Reaction Status Date / Time
amoxicillin trihydrate Allergy patient Verified 03/03/24 05:37
[From Augmentin] states
severe
nausea and
intestinal
pain
cat dander Allergy Sinus Verified 03/03/24 05:37
congestion
cigarette smoke Allergy Positive Verified 03/03/24 05:37
skin test
to tobacco
dog dander Allergy Sinus Verified 03/03/24 05:37
congestion
grass pollen Allergy Sinus Verified 03/03/24 05:37
congestion,
cough
levofloxacin [From Levaquin] Allergy GI Symptoms Verified 03/03/24 05:37
mold Allergy Sinus Verified 03/03/24 05:37
congestion,
cough
Sulfa (Sulfonamide Allergy INTESTINAL Verified 03/03/24 05:37
Antibiotics) PAIN
tree and shrub pollen Allergy Sinus Verified 03/03/24 05:37
congestion,
cough
Home Medications
�Medication �Instructions �Recorded �Confirmed �Last Taken �Type
amitriptyline 25 mg tablet 50 mg PO HS Mental Health/Anxiety 03/05/09 03/03/24 03/02/24 History
duloxetine 60 mg capsule,delayed 60 mg PO DAILY Mental 01/11/14 03/03/24 03/02/24 History
release Health/Anxiety
atorvastatin 10 mg tablet 10 mg PO QPM High cholesterol 02/10/22 03/03/24 03/02/24 History
glipizide 2.5 mg tablet, extended 2.5 mg PO BID Diabetes 02/10/22 03/03/24 03/02/24 History
release 24 hr
metformin 500 mg tablet 500 mg PO BID Diabetes 02/10/22 03/03/24 03/02/24 History
metoprolol succinate 50 mg 100 mg PO DAILY Blood pressure 02/10/22 03/03/24 03/02/24 History
tablet,extended release 24 hr
revefenacin 175 mcg/3 mL solution 175 mcg inhalation R DAILY 02/10/22 03/03/24 03/02/24 History
for nebulization (Yupelri) Lung/breathing issues
tramadol 50 mg tablet 50 mg PO DAILY 02/10/22 03/03/24 03/02/24 History
arformoterol 15 mcg/2 mL solution 2 ml inhalation R BID 04/02/22 03/03/24 03/02/24 History
for nebulization (Brovana) Lung/breathing issues
budesonide 0.5 mg/2 mL suspension 0.5 mg inhalation R BID 04/02/22 03/03/24 03/02/24 History
for nebulization Lung/breathing issues
cyanocobalamin (vitamin B-12) 2,500 mcg sublingual DAILY 04/02/22 03/03/24 03/02/24 History
2,500 mcg sublingual tablet Supplement
(Vitamin B-12)
multivitamin 1 tab PO DAILY Supplement 04/02/22 03/03/24 03/02/24 History
calcium 500 mg (as 500 mg PO DAILY Supplement 04/08/22 03/03/24 03/02/24 History
carbonate)-vitamin D3 5 mcg (200
unit) tablet (Oyster Shell
Calcium-Vitamin D3)
biotin 10,000 mcg chewable tablet 10,000 mcg PO DAILY Supplement 01/19/24 03/03/24 03/02/24 History
(Hair, Skin and Nails (biotin))
albuterol sulfate 90 mcg/actuation 2 puff inhalation R Q6HPRN PRN sob 03/03/24 03/03/24 03/02/24 History
aerosol inhaler
digoxin 250 mcg (0.25 mg) tablet 0.125 mcg PO DAILY 03/03/24 03/03/24 03/02/24 History
metoprolol succinate 50 mg 50 mg PO HS Arrhythmia 03/03/24 03/03/24 03/02/24 History
tablet,extended release 24 hr
torsemide 20 mg tablet 60 mg PO DAILY Fluid 03/03/24 03/03/24 03/02/24 History
retention/Swelling
warfarin 2.5 mg tablet 2.5 mg PO QPM 03/03/24 03/03/24 03/02/24 History
Review of Systems
-
History Source: Patient
All other systems: Negative unless noted
Vitals / Labs / Diagnostic Testing
Vital Signs
Pulse Resp BP Pulse Ox
87 21 134/71 92
03/03/24 06:01 03/03/24 06:01 03/03/24 06:01 03/03/24 08:44
Lab Data
03/03/24 05:51
03/03/24 05:51
Laboratory Results
03/03/24 03/03/24
06:12 07:30
PT 19.7 H
INR 1.69
pH 7.50 H
pCO2 38 H
pO2 55 L*
HCO3 29.6 H
O2 Delivery Level 3l nc
Diagnostic Testing:
Physical Exam
-
HEENT: Normocephalic, Anicteric and Moist Mucous Membranes
Cardiovascular: S1/S2, Regular Rhythm and Peripheral Edema (overlying redness)
Respiratory: Clear (overall diminished) and Non-Labored Respirations
GI: Soft, Distended (obese/protuberant) and Non Tender
Neurology: Awake, Alert and Other (confused, restless in the bed)
Skin: Warm, Dry and Other (rash in groin/bilateral)
General: Comfortable and Other (NAD, morbidly obese)
Assessment
-
Patient is a 68 year old F with PMHx of COPD, HTN, HLD, anxiety, CHAS intolerant to CPAP, s/p TAVR, Afib on coumadin, pulmonary HTN, chronic hypoxic respiratory failure on 3L home O2, HFpEF brought by her with mild agitation and
restlessness. On arrival to ER, there is noted mild elevation of creatinine, lactate and hypokalemia. Patient has been having urinary retention as well, notes she was doing well on diuretics but then stopped voiding in the past few days
despite increased dose. proBNP 3690, CXR unchanged compared to prior. We are consulted for eval.
Acute respiratory failure with hypoxia
Acute HFpEF exacerbation, proBNP 3690
Urinary retention
Change in MS, restlessness
Medical noncompliance
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
Reported history of COPD/asthma, follows with Russ Smith
Atrial flutter with RVR (new onset)
Mild�moderate pulmonary hypertension with PASP 45�50 assuming an RAP of 15 mmHg
Severe CHAS intolerant to CPAP (per patient) with secondary polycythemia (initial Hb 18.5 on 01/19/2024)
Suspected OHS
Morbid obesity, BMI 48
Hypertension
Hyperlipidemia
DM type II
Aortic stenosis s/p TAVR
Anxiety
History of CVA
Former tobacco smoker (quit 1999)
Plan:
Supplemental oxygen as needed-placed on midflow 10L
Home use of 3L NC, can wean back to baseline
Assess discharge supplemental oxygen needs prior to discharge
CHF/Obesity/atelectasis likely contributing
HF exacerbation due to urinary retention
ProBNP >3000
Resume IV diuresis
Consider cards/urology consults
José placement if needed
R/o UTI
Follow daily weights
Patient has severe CHAS intolerant to CPAP
She is aware of the risks of CPAP noncompliance with CHAS including risk of arrhythmia, cardiovascular disease, hypertension, pulmonary hypertension, and worsening quality of life
She also likely has obesity hypoventilation syndrome which carries an even greater risk of pulmonary hypertension compared to CHAS
ABG on last admission shows mild acute respiratory acidosis with pH 7.33 and pCO2 47 - nocturnal CPAP/BiPAP is recommended
I discussed this with her today and they are willing to try PAP, will order BIPAP
He notes she had been scheduled for split study and when attempted she declined during test due to intolerance
This mostly certainly could be contributing to mental status issues
Medical noncompliance is an issue
Change in MS, restless behavior noted
History of CVA, CT head showing meningioma
Neuro consult obtained
Could be TME
DVT prophylaxis-on Eliquis
Nutrition
Physical therapy
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 Smith.
If she wishes to transition to us at [facility] we will facilitate
We will follow
Diagnostic Data
CXR 01/19/24- Mild pulmonary edema. No definite pleural effusion.
CTA Chest 01/19/2024: No evidence of pulmonary embolism or active pulmonary process. Bilateral hilar lymphadenopathy. It is difficult to evaluate for hilar lymphadenopathy on the previous CT from 09/09/2022 given the absence of intravenous contrast on
this exam. Mediastinal lymphadenopathy is unchanged. Dilated pulmonary arterial system which can be seen in the setting of pulmonary arterial hypertension.
CT Head 03/03/24- 1). There are no acute intracranial abnormalities
2). Old 6.5 cm right occipital infarct
3). 2.8 cm meningioma over the anterolateral right parietal convexity
ECHO 01/19/24- Hyperdynamic left ventricular systolic function. LV ejection fraction is 70- 75%. Mild mitral stenosis. s/p TAVR 29 mm Medtronic Evolut. Peak/mean gradients across the aortic valve are 8/5 mmHg. No aortic regurgitation. Enlarged right
ventricular size. Reduced right ventricular systolic function. Septal flattening in systole and diastole consistent with RV pressure and volume overload. Mild tricuspid regurgitation. Moderately elevated PASP. Estimated pulmonary artery pressure of
45-50 mmHg assuming a right atrial pressure of 15 mmHg. Compared to 05/01/22: RV dysfunction is now present. PASP was unable to be measured on prior study.
Reports and relevant images were personally reviewed.
Total time spent on this consultation __75__ includes review of history, physical exam, medications, laboratory data, personal review of imaging, extensive review of outpatient records, discussion with care team and respiratory therapy.
[2024-03-03 09:48] LABS: TSH Reflex To Free T4 0.11 uIU/ml (0.47-4.68)
[2024-03-03] MEDS: NSS 250 IV (09:50)
--- NOTE | 2024-03-03 09:50 | CON.NEURO ---
Consultation
Order
Date of Consultation: 03/03/24
Requesting Provider: Maurisio Mari MD
Reason for Consult: Agitation
CC: none
HPI: This is a 68-year-old right-handed woman who presented to [facility] with encephalopathy, change in behavior and hypoxia. According to patient's spouse the patient has had episodes of what appears to be panic attacks, restless
leg, and an inability to sit still, with shaking. These symptoms have been present for the last 2-3 days. No rpeorts of seizures, rhythmic movements, posturing, starring.
Ms. Lindsey has history of cognitive impairment following her stroke and her medications are being administered by her spouse
She also has history of refractory insomnia with difficulty sleeping for at least 2 years. She can not tolerate CPAP due to panic when the mask is applied.
She has been reportedly on amitriptyline for about a month but was recently switched to trazodone and was weaned of Ambien.
ER VS: 146/104, 80 % on 4l of O2, no T has been recorded.
EKG: A-Fib, QTc Int : 432 ms
PDMP:Tramadol Hcl 50 Mg 90 tabs filled in on 02/08/2024, 11/30/2023, Zolpidem Tartrate 10 MG 90 tabs filled in on 01/01/2024.
Labs: INR-1.69, normal WBCs, platelets, hematocrit�49.2, pO2�55, normal sodium, creatinine 1.0�1.2, glucose�168, lactic acid�2.8, magnesium�1.4, ALT�37, alk phos�183, TSH�0.11, free T4�pending, UA�trace of leukocyte esterase, digoxin�0.7 (0.8-2.0)
SARS-Cov 2-neg
MAR: Ativan 0.5 mg given on 03/03/2024 at 7:10 AM, Cefepime, Zosyn, Vancomycin
PMH: right parietal convexity meningioma, R NATIONAL SALES EXECUTIVE stroke, restrictive lung disease, chronic hypoxic respiratory failure, stroke, A-Fib, severe , HTN, DLP, DM, HFpEF, MDD, ROCHELLE, insomnia, class III obesity, CHAS(CPAP intolerant), Fibromyalgia
PSH: Bioprosthetic TAVR, BL TKA
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
FH: Both parents- alcohol addiction, mother is alive in her 90s has dementia
All: Sulfas, levofloxacin, amoxicillin
ROS: Negative for headache, positive for confusion
General: Obese, intermittently restless
Cardio: irregular rate and rhythm. Extremities 1+edema.
Neuro:
Mental Status: Intermittently lethargic. Oriented to name, not to months. Poor attention. Follows simple requests. Nonfluent, no hemineglect.
Cranial Nerves:Pupils are equally round and reactive to light. EOMs full. BTT L<R No ptosis. No nystagmus. Face symmetric. Normal hearing AU. No dysarthria.
Motor: No arm drift. Moves lower extremities within bed plane symmetrically.
Reflexes: Grasp on the left.
Sensory: Limited exam due to poor attention
Coordination: No tremors, clonic movements
Gait: deferred
Assessment and Plan:
I. Multifactorial encephalopathy (toxic(Lorazepam)-metabolic(uremia), hypoxic, vascular(chronic R NATIONAL SALES EXECUTIVE infarct), neoplastic(meningioma)).
II. Right parietal convexity meningioma
III. Chronic R NATIONAL SALES EXECUTIVE infarct
IV. PA-AFib
V. Hypomagnesemia
-Aspiration precautions.
-Avoid medications, known to lower seizure threshold(Cefepime)
-Avoid hypoxia, MANAGER ENGAGEMENT suppressants and anticholinergic medications.
-please check vit B12, ammonia, CK, ua tox.
-Brain MRI wo rochelle given subtherapeutic INR and A-Fib
-DVT prophylaxis
I personally reviewed all radiology and labs along with past medical records pertinent to current medical problems. Total time spent in patient care is 60 minutes.
Thank you for allowing us to participate in the care of this patient. We will continue to follow. Please do not hesitate to contact us with any questions or concerns.
Subjective/Objective
Subjective Data
Date of Service: March 03, 2024
Objective Data
Vital Signs
Pulse Resp BP Pulse Ox
87 21 134/71 92
03/03/24 06:01 03/03/24 06:01 03/03/24 06:01 03/03/24 08:44
Lab Results
03/03/24 05:51
03/03/24 05:51
PT 19.7 Sec (11.4-14.6) H 03/03/24 07:30
INR 1.69 03/03/24 07:30
Sodium 141 mmol/L (135-145) 03/03/24 05:51
Potassium 3.0 mmol/L (3.5-5.1) L 03/03/24 05:51
BUN 44 mg/dl (7-17) H 03/03/24 05:51
Glucose 168 mg/dl (70-99) H 03/03/24 05:51
Calcium 10.2 mg/dl (8.4-10.2) 03/03/24 05:51
Hlr-D-Glsohhpbjuj Pept 3690 pg/ml 03/03/24 05:51
Patient Allergies
amoxicillin trihydrate [From Augmentin] Allergy (Verified 03/03/24 05:37)
patient states severe nausea and intestinal pain
cat dander Allergy (Verified 03/03/24 05:37)
Sinus congestion
cigarette smoke Allergy (Verified 03/03/24 05:37)
Positive skin test to tobacco
dog dander Allergy (Verified 03/03/24 05:37)
Sinus congestion
grass pollen Allergy (Verified 03/03/24 05:37)
Sinus congestion, cough
levofloxacin [From Levaquin] Allergy (Verified 03/03/24 05:37)
GI Symptoms
mold Allergy (Verified 03/03/24 05:37)
Sinus congestion, cough
Sulfa (Sulfonamide Antibiotics) Allergy (Verified 03/03/24 05:37)
INTESTINAL PAIN
tree and shrub pollen Allergy (Verified 03/03/24 05:37)
Sinus congestion, cough
Medications
-
Active Medications
Generic Name Dose Route Start Last Admin
Trade Name Freq PRN Reason Stop Dose Admin
Piperacillin Sod/Tazobactam Sod 3.375 gram in 50 mls @ 100 mls/hr 03/03/24 10:00 03/03/24 09:28
Zosyn IV 50 mls
Q6H MARION Administration
Vancomycin HCl 1 each/ Device 0 mls @ 0 mls/hr 03/03/24 10:00
IV
PER PROTOCOL MARION
As Directed
Vancomycin HCl 2,000 mg/ 540 mls @ 270 mls/hr 03/03/24 09:03
Sodium Chloride IV 03/03/24 11:02
NOW STA
Sodium Chloride 250 mls @ 125 mls/hr 03/03/24 09:08
Nss IV 03/03/24 11:07
BOLUS ONE
Magnesium Sulfate 4 gram in 100 mls @ 25 mls/hr 03/03/24 09:31
Magnesium Sulfate IV 03/03/24 13:30
NOW STA
Home Medications
�Medication �Instructions �Recorded
amitriptyline 25 mg tablet 50 mg PO HS Mental Health/Anxiety 03/05/09
duloxetine 60 mg capsule,delayed 60 mg PO DAILY Mental 01/11/14
release Health/Anxiety
atorvastatin 10 mg tablet 10 mg PO QPM High cholesterol 02/10/22
glipizide 2.5 mg tablet, extended 2.5 mg PO BID Diabetes 02/10/22
release 24 hr
metformin 500 mg tablet 500 mg PO BID Diabetes 02/10/22
metoprolol succinate 50 mg 100 mg PO DAILY Blood pressure 02/10/22
tablet,extended release 24 hr
revefenacin 175 mcg/3 mL solution 175 mcg inhalation R DAILY 02/10/22
for nebulization (Yupelri) Lung/breathing issues
tramadol 50 mg tablet 50 mg PO DAILY 02/10/22
arformoterol 15 mcg/2 mL solution 2 ml inhalation R BID 04/02/22
for nebulization (Brovana) Lung/breathing issues
budesonide 0.5 mg/2 mL suspension 0.5 mg inhalation R BID 04/02/22
for nebulization Lung/breathing issues
cyanocobalamin (vitamin B-12) 2,500 mcg sublingual DAILY 04/02/22
2,500 mcg sublingual tablet Supplement
(Vitamin B-12)
multivitamin 1 tab PO DAILY Supplement 04/02/22
calcium 500 mg (as 500 mg PO DAILY Supplement 04/08/22
carbonate)-vitamin D3 5 mcg (200
unit) tablet (Oyster Shell
Calcium-Vitamin D3)
biotin 10,000 mcg chewable tablet 10,000 mcg PO DAILY Supplement 01/19/24
(Hair, Skin and Nails (biotin))
albuterol sulfate 90 mcg/actuation 2 puff inhalation R Q6HPRN PRN sob 03/03/24
aerosol inhaler
digoxin 250 mcg (0.25 mg) tablet 0.125 mcg PO DAILY 03/03/24
metoprolol succinate 50 mg 50 mg PO HS Arrhythmia 03/03/24
tablet,extended release 24 hr
torsemide 20 mg tablet 60 mg PO DAILY Fluid 03/03/24
retention/Swelling
warfarin 2.5 mg tablet 2.5 mg PO QPM 03/03/24
Vital Signs and Labs
-
Vital Signs and Labs:
Vital Signs
Pulse Resp BP Pulse Ox
87 21 134/71 92
03/03/24 06:01 03/03/24 06:01 03/03/24 06:01 03/03/24 08:44
Lab Results
03/03/24 05:51
03/03/24 05:51
PT 19.7 Sec (11.4-14.6) H 03/03/24 07:30
INR 1.69 03/03/24 07:30
Sodium 141 mmol/L (135-145) 03/03/24 05:51
Potassium 3.0 mmol/L (3.5-5.1) L 03/03/24 05:51
BUN 44 mg/dl (7-17) H 03/03/24 05:51
Glucose 168 mg/dl (70-99) H 03/03/24 05:51
Calcium 10.2 mg/dl (8.4-10.2) 03/03/24 05:51
Ebg-X-Jkdnyuwlokt Pept 3690 pg/ml 03/03/24 05:51
Medications
-
Medications:
Generic Name Dose Route Start Last Admin
Trade Name Freq PRN Reason Stop Dose Admin
Piperacillin Sod/Tazobactam Sod 3.375 gram in 50 mls @ 100 mls/hr 03/03/24 10:00 03/03/24 09:28
Zosyn IV 50 mls
Q6H MARION Administration
Vancomycin HCl 1 each/ Device 0 mls @ 0 mls/hr 03/03/24 10:00
IV
PER PROTOCOL MARION
As Directed
Vancomycin HCl 2,000 mg/ 540 mls @ 270 mls/hr 03/03/24 09:03 03/03/24 09:53
Sodium Chloride IV 03/03/24 11:02 540 mls
NOW STA Administration
Sodium Chloride 250 mls @ 125 mls/hr 03/03/24 09:08 03/03/24 09:50
Nss IV 03/03/24 11:07 250 mls
BOLUS ONE Administration
Magnesium Sulfate 4 gram in 100 mls @ 25 mls/hr 03/03/24 09:31
Magnesium Sulfate IV 03/03/24 13:30
NOW STA
Home Medications
-
Home Medications
amitriptyline 25 mg tablet 50 mg PO HS Mental Health/Anxiety 03/05/09
duloxetine 60 mg capsule,delayed release 60 mg PO DAILY Mental Health/Anxiety 01/11/14
atorvastatin 10 mg tablet 10 mg PO QPM High cholesterol 02/10/22
glipizide 2.5 mg tablet, extended release 24 hr 2.5 mg PO BID Diabetes 02/10/22
metformin 500 mg tablet 500 mg PO BID Diabetes 02/10/22
metoprolol succinate 50 mg tablet,extended release 24 hr 100 mg PO DAILY Blood pressure 02/10/22
revefenacin 175 mcg/3 mL solution for nebulization (Yupelri) 175 mcg inhalation R DAILY Lung/breathing issues 02/10/22
tramadol 50 mg tablet 50 mg PO DAILY 02/10/22
arformoterol 15 mcg/2 mL solution for nebulization (Brovana) 2 ml inhalation R BID Lung/breathing issues 04/02/22
budesonide 0.5 mg/2 mL suspension for nebulization 0.5 mg inhalation R BID Lung/breathing issues 04/02/22
cyanocobalamin (vitamin B-12) 2,500 mcg sublingual tablet (Vitamin B-12) 2,500 mcg sublingual DAILY Supplement 04/02/22
multivitamin 1 tab PO DAILY Supplement 04/02/22
calcium 500 mg (as carbonate)-vitamin D3 5 mcg (200 unit) tablet (Oyster Shell Calcium-Vitamin D3) 500 mg PO DAILY Supplement 04/08/22
biotin 10,000 mcg chewable tablet (Hair, Skin and Nails (biotin)) 10,000 mcg PO DAILY Supplement 01/19/24
albuterol sulfate 90 mcg/actuation aerosol inhaler 2 puff inhalation R Q6HPRN PRN sob 03/03/24
digoxin 250 mcg (0.25 mg) tablet 0.125 mcg PO DAILY 03/03/24
metoprolol succinate 50 mg tablet,extended release 24 hr 50 mg PO HS Arrhythmia 03/03/24
torsemide 20 mg tablet 60 mg PO DAILY Fluid retention/Swelling 03/03/24
warfarin 2.5 mg tablet 2.5 mg PO QPM 03/03/24
[2024-03-03 09:53] LABS: COVID-19 Antigen Negative (Negative)
[2024-03-03] MEDS: VANCOCIN 540 MG IV (09:53)
[2024-03-03 10:18] LABS: Free T4 1.52 ng/dl (0.78-2.19)
[2024-03-03] MEDS: MAGNESIUM SULFATE 100 IV (10:18)
--- NOTE | 2024-03-03 10:22 | EDRN ---
this RN called pharmacy again for them to sent this RN the pts IV Potassium, the pt continues to try to climb out of bed and pull at PIV's
--- NOTE | 2024-03-03 10:22 | CON.MD ---
Consultation - Medical
-
patient seen chart reviewed. this consult was ordered for 'everardo' spoke with nursing and evita verde and greg. patient was initially i would say agitated and there was a degree of restlessness which she attributed to needing to urinate.. she
had moved herself to the front of the erseibert. she was insisting she had to get to bathroom. nursing was very concerned about her tipping the guerney and were trying to get her to back up on the erseibert. she was brought to for vague abdominal
pain. a number of other issues were identified as well including hypoxia, atrial fibrillation, hypomagnesemia, hypokalemia, increased lft's. she also may have chronic chf. dr verde tells me there was ? of need for intubation however there was
concern extubation would not be possible. the patient was taking cymbalta 60 mg trazodone for sleep the latter changed to amitriptylline very recently. the patient is not taking any psychotic currently although she is on a number of meds with
serotinergic effects which could contribute to serotonin syndrome. the patient herself denied she was being treated for depression. the cymbalta was for chronic pain and the trazodone and amitryptyline for sleep. trazodone dc'ed bc side effects.
she had been on amitriptyline in the past for fibromyalgia and sleep. it was dced bc side effects. she was on ambien for sleep for a time but was her says an 'ambien zoadrian' sleep walking and sleep eating....and ambien dc'ed and
amitriptyline restarted. read up on her meds and he was concerned she had serotonin syndrome. she has no psych hx of depression or anxiety. she according to h does not have memory issues . she had denied depression to me as did her .
past psych hx
medical hx head ct meningioma old infarct no acute cat of abdomen and pelvis w ? liver lesion recommending followup as mentioned dec mg and K; elevated ast alt bili and alk phos tsh low w nl t4 qtc 432 a fib ? v tach on monitor hx asthma copd
gerd htn niddm valvular disease chronic chf mentioned in notes obesity; vital signs: some high readings on bp currently nl afebrile no tachycardia noted although arrhythmias noted earlier see above.
fh non contributory
substance abuse none
social resides w retired
mse alert ox3 somewhat agitated and in some physical distress eg seemed sob. speech and thought process appear normal. patient is anxious at present affect appropriate no suicidal thoughts or psychosis. insight judgment seem okay
dx r/o serotonin syndrome
recommendations would hold off on serotinergic drugs at this point and monitor . a number of medical issues are being addressed by hospitalist. she is going to imu as per dr garza. i did give her a small dose of risperdal o.5 mg initially as
she was quite agitated and risked falling off the guerney. she had already been given ativan. nursing had placed her in soft restraints which they were able to remove. need to consider respiratory status if need for sedation. consider small doses
of ativan. psych will follow.
--- NOTE | 2024-03-03 10:23 | EDRN ---
the pt had a few funs of Vtach, hosiptalist notified and is currently at the pts bedside, order being placed for non violent soft restraints
--- NOTE | 2024-03-03 10:29 | EDRN ---
b/l soft wrist non violent restraints placed per the providers orders, this was explained to the pt and the pts , still awaiting potassium from pharmacy, the pt continues to attempt to get out of bed by attempting to throw legs out of bed,
the pt continues to be reoriented by ED staff, the pt is currently still on Midflow with Sp02 96%, Magnesium and Vanco currently still running, this RN called pharmacy again to ask where potassium is, will continue to monitor the pt closely
[2024-03-03 11:00] LABS: Direct Bilirubin 0.8 mg/dl (0.0-0.4); LDH 415 U/L (120-246)
--- NOTE | 2024-03-03 11:00 | EDRN ---
pharmacy was called again by mary RN and Felisha PILLAI, still awaiting for potassium
[2024-03-03 11:01] LABS: Creatine Phosphokinase 97 U/L (30-135)
[2024-03-03 11:02] LABS: Ammonia 10 umol/L (9-30)
--- NOTE | 2024-03-03 11:12 | PHA.VAN.IN ---
Assessment
- Assessment
Renal Function: Appears elevated from baseline (Patient's SrCr is elevated by >0.3mg/dl from baseline ~0.7mg/dl)
Concomitant Antimicrobials: Piperacillin/Tazobactam
Plan
- Plan
Initial / Loading Dose: 2000mg
Maintenance Regimen: dose by level
Monitoring: Random with am labs
Pharmacokinetics Vancomycin I
- -
Patient Age: 68
Patient Sex: Female
Vancomycin Day #: 1
Indication: Other
Requesting Provider: Satish Goldstein
Height / Weight:
Height 5 ft 6 in
Actual Weight 135.4 kg
Pertinent Past Medical History: COPD, chronic respiratory failure on 3L home O2
- Vital Signs / Lab Results
Pulse Resp BP Pulse Ox
87 21 134/71 92
03/03/24 06:01 03/03/24 06:01 03/03/24 06:01 03/03/24 08:44
Lab Results - Hematology
03/03/24
05:51
WBC 9.5
Lab Results - Chemistry
03/03/24
05:51
BUN 44 H
Creatinine 1.2 H
Albumin 4.0
03/03/24
05:54
Lactic Acid 2.8 H
Lab Results - Urine
03/03/24
06:12
Urine Nitrite (Reflex) Negative
Leukocyte Esterase Rfl Trace A
Urine WBC (Reflex) 0-2
Ur Squamous Epith Cells 3-5
Microbiology Results
03/03/24 09:13 Influenza Types A & B (WILLIAM) - Final
Nasal Swab Negative for Influenza A & B, NAAT
Negative results must be combined with clinical observations
and patient history.
Nucleic Acid Amplification test (NAAT)performed on the
[employer] platform.
[2024-03-03] MEDS: KCL 160 MEQ IV (11:17)
--- NOTE | 2024-03-03 11:18 | EDRN ---
potassium hung and running
--- NOTE | 2024-03-03 11:22 | EDRN ---
Pt continues to be difficult to redirect. Plan for ICU due to need for 1:1
[2024-03-03 11:34] LABS: Hepatitis B Surface Antigen Negative (Negative)
[2024-03-03 11:36] LABS: Amphetamines Negative (Negative); Barbiturates Negative (Negative); Benzodiazepines Positive (Negative); Buprenorphine Negative (Negative)
[2024-03-03 11:37] LABS: Cocaine Negative (Negative); Marijuana Negative (Negative); Methadone Negative (Negative); Methamphetamines Negative (Negative); Opiates Negative (Negative); Phencyclidine Negative (Negative); Tricyclic Antidepressants Positive (Negative)
[2024-03-03 11:52] LABS: Hepatitis B Core Ab, Total Negative (Negative); Hepatitis B Surface Antibody Negative; Hepatitis C Antibody Negative (Negative)
[2024-03-03 12:00] LABS: Fentanyl, Urine Negative (Negative)
[2024-03-03] MEDS: RISPERDAL M-TAB (ORALLY DISINTEGRATING) 0.5 MG PO (12:31)
[2024-03-03 13:09] LABS: Glucose - Point of Care 114 mg/dl (70-99)
[2024-03-03] MEDS: KCL 270 MEQ IV (13:31)
--- NOTE | 2024-03-03 15:12 | PTCARENOTE ---
Pt admitted from ED. Mag, KCl, Vancomycin infusing into PIV. Akathisia continues. Pt A&O X3 but often sentences don't make sense/not related to current situation. Restraints BUE due to attempts to pull leads and exit bed. Afib with RBBB, BP WNL.
Murmur auscultated. 10L MF with CALHOUN, SpO2 90-93%. Tolerating sips of water and PO Risperdal. Pt states need to void but just straight cathed in ED. Purwick placed. No UOP at this time. MASD vs fungal growth bilat groin. PIV X4 flush easily.
and son at bedside for admission question assistance.
--- NOTE | 2024-03-03 15:43 | PTCARENOTE ---
Addendum entered and electronically signed by Wendy Bonilla MD 03/04/24 05:13:
Note
Disregard this note
Wrong patient
Original Note:
Neurologist to bedside to speak with family about MRI and EEG. Decision made to make pt comfort care. refusing GOL due to family rastafarian. Rabbi to bedside for prayer. Awaiting Comfort care orders. Family remains at bedside.
[2024-03-03] MEDS: VENTOLIN NEBULES 2.5 MG INH ×2 (15:52→19:51)
[2024-03-03 16:11] LABS: Glucose - Point of Care 99 mg/dl (70-99)
[2024-03-03 16:20] LABS: APTT 31.3 Sec (23.4-35.0)
[2024-03-03 16:22] LABS: Lactic Acid 1.5 mmol/L (0.7-2.0); Magnesium 2.3 mg/dl (1.6-2.3)
[2024-03-03] MEDS: COUMADIN 2.5 MG PO (17:13)
[2024-03-03] MEDS: LIPITOR 10 MG PO (17:14)
[2024-03-03] MEDS: DESENEX/MITRAZOL/ZEASORB 1 APPLIC TOPICAL (19:10)
[2024-03-03] MEDS: PULMICORT 0.5 MG INH (19:51)
--- NOTE | 2024-03-03 20:00 | PTCARENOTE ---
Patient received in bed AAOx2 not to time. Bilateral wrist restraints removed. Afib on monitor, palpable pulses throughout. Murmur noted. Lungs diminished bilaterally, pulse ox 95% on 10 Mid flow. Abdomen obese with hypoactive bowel sounds. Ate
100% of dinner tray. Pure wick draining delilah urine. MASD noted in groin. All PIVs flushed and patent. Plan of care discussed, call avitia within reach
[2024-03-03 21:50] LABS: Glucose - Point of Care 136 mg/dl (70-99)
--- NOTE | 2024-03-03 21:55 | PTCARENOTE ---
Patient placed on BiPap 12/5 with 15L.
[2024-03-03] MEDS: TOPROL XL 50 MG PO (22:25)
[2024-03-04] VITALS (15 sets, daily range): BP systolic 98–137; BP diastolic 61–97
--- NOTE | 2024-03-04 00:59 | PTCARENOTE ---
Patient pulled off BiPap placed back on 15L MFNC
[2024-03-04] MEDS: ZOSYN 50 IV ×4 (03:34→21:38)
[2024-03-04 05:27] LABS: INR 1.77; Lactic Acid 1.6 mmol/L (0.7-2.0); PT 20.5 Sec (11.4-14.6)
[2024-03-04 05:38] LABS: % Basophils 0.9 % (0-2); % Eosinophils 3.3 % (0-6); % Immature Granulocytes 0.4 % (0-0.5); % Lymphocytes 18.8 % (20.5-51.1); % Neutrophils 64.6 % (42.2-75.2); Absolute Basophils 0.1 10^3/uL (0-0.2); Absolute Eosinophils 0.3 10^3/uL (0-0.7); Absolute Lymphocytes 1.7 10^3/uL (1.2-3.4); Absolute Monocytes 1.1 10^3/uL (0.1-0.6); Absolute Neutrophils 5.7 10^3/uL (1.4-6.5); Hematocrit 45.5 % (37.0-47.0); Hemoglobin 15.2 g/dL (12.0-16.0); Mean Corp Hgb Conc. 33.4 g/dL (33.0-37.0); Mean Corpuscular Hgb 32.6 pg (27.0-31.0); Mean Corpuscular Volume 97.6 fL (81.0-99.0); Nucleated Red Blood Cells % 0.2 %; Platelet Count 181 10^3/uL (130-400); Red Blood Cell Count 4.66 10^6/uL (4.20-5.40); Red Cell Dist. Width 16.6 % (11.5-14.5); White Blood Cell Count 8.9 10^3/uL (4.8-10.8)
[2024-03-04 05:40] LABS: ALT (SGPT) 26 U/L (0-35); AST (SGOT) 34 U/L (14-36); Albumin 3.6 g/dl (3.5-5.0); Alkaline Phosphatase 132 U/L (38-126); Blood Urea Nitrogen 41 mg/dl (7-17); Calcium 9.1 mg/dl (8.4-10.2); Carbon Dioxide 30 mmol/L (22-30); Chloride 100 mmol/L (98-107); Estimated Creatinine Clearance 67 ml/min; Glucose 116 mg/dl (70-99); Magnesium 2.2 mg/dl (1.6-2.3); Potassium 3.1 mmol/L (3.5-5.1); Sodium 144 mmol/L (135-145); Total Bilirubin 2.2 mg/dl (0.2-1.3); Total Protein 6.6 g/dl (6.3-8.2); eGFR 54.06
[2024-03-04] MEDS: KCL 270 MEQ IV (06:23)
[2024-03-04] MEDS: PULMICORT 0.5 MG INH ×2 (07:12→19:49)
[2024-03-04] MEDS: VENTOLIN NEBULES 2.5 MG INH ×4 (07:12→19:49)
[2024-03-04] MEDS: SPIRIVA RESPIMAT 2.5 MCG 2 PUFF INH (07:12)
--- NOTE | 2024-03-04 07:13 | W.PN.INTV ---
Today's Communication / Plan
Recommendations
Wean oxygen
Continue with efforts of BiPAP at night
Antibiotics per primary service
Follow blood sugars
No indication for steroids at this time
Okay for transfer out of ICU. Pulmonary will continue to follow
Assessment
-
Patient is a 68 year old F with PMHx of COPD, HTN, HLD, anxiety, CHAS intolerant to CPAP, s/p TAVR, Afib on coumadin, pulmonary HTN, chronic hypoxic respiratory failure on 3L home O2, HFpEF brought by her with mild agitation and
restlessness. On arrival to ER, there is noted mild elevation of creatinine, lactate and hypokalemia. Patient has been having urinary retention as well, notes she was doing well on diuretics but then stopped voiding in the past few days
despite increased dose. proBNP 3690, CXR unchanged compared to prior. We are consulted for eval.
Acute respiratory failure with hypoxia
Requiring 10 to 15 L, improved
Acute HFpEF exacerbation, proBNP 3690
Urinary retention
Change in MS, restlessness
Medical noncompliance
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
Reported history of COPD/asthma, follows with Russ Smith
Atrial flutter with RVR (new onset)
Mild�moderate pulmonary hypertension with PASP 45�50 assuming an RAP of 15 mmHg
Severe CHAS intolerant to CPAP (per patient) with secondary polycythemia (initial Hb 18.5 on 01/19/2024)
Suspected OHS
Morbid obesity, BMI 48
Hypertension
Hyperlipidemia
DM type II
Aortic stenosis s/p TAVR
Anxiety
History of CVA
Former tobacco smoker (quit 1999)
Plan:
At this time, patient appears to be objectively and subjectively improved.
Did not tolerate BiPAP for more than an hour
Lactate normal
Hemodynamic stable
Patient is without complaints
Moving forward
Continue to wean oxygen, currently on 10 L mid flow, 98%
Home use of 3L NC, can wean back to baseline
Assess discharge supplemental oxygen needs prior to discharge
CHF/Obesity/atelectasis likely contributing
HF exacerbation due to urinary retention
ProBNP >3000
Continue diuresis
Negative fluid status not noted at this time
Follow daily weights
Patient has severe CHAS intolerant to CPAP
She is aware of the risks of CPAP noncompliance with CHAS including risk of arrhythmia, cardiovascular disease, hypertension, pulmonary hypertension, and worsening quality of life
She also likely has obesity hypoventilation syndrome which carries an even greater risk of pulmonary hypertension compared to CHAS
ABG on last admission shows mild acute respiratory acidosis with pH 7.33 and pCO2 47 - nocturnal CPAP/BiPAP is recommended
I discussed this with her today and they are willing to try PAP, will order BIPAP
He notes she had been scheduled for split study and when attempted she declined during test due to intolerance
This mostly certainly could be contributing to mental status issues
Medical noncompliance is an issue
Change in MS, restless behavior noted
History of CVA, CT head showing meningioma
Neuro has been following
Appears to be back to baseline this morning
DVT prophylaxis-on Eliquis
Nutrition
Physical therapy
She ultimately will follow-up with her private fish rod maker, Dr. Smith.
If she wishes to transition to us at [facility] we will facilitate
Disposition efforts
Diagnostic Data
CXR 01/19/24- Mild pulmonary edema. No definite pleural effusion.
CTA Chest 01/19/2024: No evidence of pulmonary embolism or active pulmonary process. Bilateral hilar lymphadenopathy. It is difficult to evaluate for hilar lymphadenopathy on the previous CT from 09/09/2022 given the absence of intravenous contrast on
this exam. Mediastinal lymphadenopathy is unchanged. Dilated pulmonary arterial system which can be seen in the setting of pulmonary arterial hypertension.
CT Head 03/03/24- 1). There are no acute intracranial abnormalities
2). Old 6.5 cm right occipital infarct
3). 2.8 cm meningioma over the anterolateral right parietal convexity
ECHO 01/19/24- Hyperdynamic left ventricular systolic function. LV ejection fraction is 70- 75%. Mild mitral stenosis. s/p TAVR 29 mm Medtronic Evolut. Peak/mean gradients across the aortic valve are 8/5 mmHg. No aortic regurgitation. Enlarged right
ventricular size. Reduced right ventricular systolic function. Septal flattening in systole and diastole consistent with RV pressure and volume overload. Mild tricuspid regurgitation. Moderately elevated PASP. Estimated pulmonary artery pressure of
45-50 mmHg assuming a right atrial pressure of 15 mmHg. Compared to 05/01/22: RV dysfunction is now present. PASP was unable to be measured on prior study.
Reports and relevant images were personally reviewed.
Total time spent on this consultation __75__ includes review of history, physical exam, medications, laboratory data, personal review of imaging, extensive review of outpatient records, discussion with care team and respiratory therapy.
Subjective Dataa
Subjective Data
Date of Service:
Date of Service: March 04, 2024
Subjective:
Patient is without complaints. Denies shortness of breath, chest pain, cough, abdominal pain, nausea. Only tolerated BiPAP for 1 hour.
Objective Data
Data Reviewed
Vital Signs / I&O / Oxygen:
Vital Signs
Temp Pulse Resp BP Pulse Ox
97.6 F 69 20 125/71 95
03/04/24 03:30 03/04/24 05:00 03/04/24 05:00 03/04/24 05:00 03/04/24 02:00
Intake and Output
03/03/24 03/04/24 03/05/24
06:59 06:59 05:59
Intake Total 910 / 910
Balance 910 / 910
SaO2 95
Nasal Cannula flow liters per 10
minute
Physical Exam
General: Comfortable and Other (Large neck)
HEENT: Normocephalic and Anicteric
Cardiovascular: Regular Rhythm, Murmur (n) and Rub (n)
Respiratory: Wheeze (n), Crackles (n), Rhonchi (n) and Non-Labored Respirations
GI: Soft, Non Distended (Obese) and Non Tender
Neurology: Awake, Alert and No Motor Deficits (Moves all extremities)
Skin: Cyanosis (n) and Jaundice
Labs/Micro/Reports
Lab Data
03/04/24 05:01
03/04/24 05:01
Laboratory Results
03/03/24 03/03/24 03/04/24
07:30 15:54 05:01
PT 19.7 H 20.5 H
INR 1.69 1.77
APTT Cancelled 31.3
Microbiology
03/03/24 09:13 Nasal Swab Influenza Types A & B (WILLIAM) - Final
Negative for Influenza A & B, NAAT
Negative results must be combined with clinical observations
and patient history.
Nucleic Acid Amplification test (NAAT)performed on the
[employer] NOW platform.
[2024-03-04 07:17] LABS: Glucose - Point of Care 101 mg/dl (70-99)
--- NOTE | 2024-03-04 07:29 | PTCARENOTE ---
0700 patient in bed. on 15L via midflow. AAO x3. Denies chest pain, no nausea, Denies feeling SOB. BP via left upper arm 121/66; Afib with PVC and bBB 97. S1 and S2 to auscultation; RR 17 even; 97%/10L via mid-flow. Pt on 3L of oxygen at home. Plan
to wean pt to home O2 3L. will encourage early ambulation . All peripheral lines flushed. K-Cl 40 infusing. call avitia within reach
[2024-03-04] MEDS: DEMADEX 60 MG PO (08:10)
[2024-03-04] MEDS: DESENEX/MITRAZOL/ZEASORB 1 APPLIC TOPICAL ×2 (08:11→19:29)
[2024-03-04] MEDS: TOPROL XL 100 MG PO (08:11)
[2024-03-04] MEDS: LANOXIN 125 MCG PO (08:14)
--- NOTE | 2024-03-04 09:11 | PHA.VAN.FU ---
Vancomycin Assessment / Plan
- Assessment
Renal Function: SCR Decreasing
WBC's are: WNL
In the past 24 hrs, patient has been: Afebrile
Concomitant Antimicrobials: ZOSYN
- Assessment - Therapeutic Drug Monitoring
Random Level: 11.0
- Dosing Plan
Dosing by Level: Re-dose today (1000MG BID THEN STOP, CONSIDER SCHEDULE IF SCR IMPROVES)
- Monitoring Plan
Random Level: 11/3 IN AM
- Follow Up
Pharmacy will continue to follow.
Vancomycin Follow UP
- -
Patient Age: 68
Patient Sex: Female
Vancomycin Day #: 2
Indication: Other
Requesting Provider: Satish Goldstein
Height / Weight:
Height 5 ft 6 in
Actual Weight 135.4 kg
Pertinent Past Medical History: COPD, chronic respiratory failure on 3L home O2
- Vital Signs / Lab Results
Temp Pulse Resp BP Pulse Ox
98.2 F 89 18 131/65 95
03/04/24 07:00 03/04/24 08:14 03/04/24 08:00 03/04/24 08:10 03/04/24 07:17
Lab Results - Hematology
03/03/24 03/04/24
05:51 05:01
WBC 9.5 8.9
Lab Results - Chemistry
03/03/24 03/04/24
05:51 05:01
BUN 44 H 41 H
Creatinine 1.2 H 1.1 H
Estimated Creat Clear 67
Albumin 4.0 3.6
03/03/24 03/03/24 03/03/24
05:54 12:07 15:54
Lactic Acid 2.8 H Cancelled 1.5
03/04/24
05:01
Lactic Acid 1.6
Microbiology Results
03/03/24 09:13 Influenza Types A & B (WILLIAM) - Final
Nasal Swab Negative for Influenza A & B, NAAT
Negative results must be combined with clinical observations
and patient history.
Nucleic Acid Amplification test (NAAT)performed on the
1,2,3 [employer] platform.
Therapeutic Drug Monitoring
Random Vancomycin 11.0 ug/ml 03/04/24 05:01
[2024-03-04] MEDS: VANCOCIN 200 IV ×2 (11:13→20:18)
[2024-03-04 11:41] LABS: Glucose - Point of Care 193 mg/dl (70-99)
--- NOTE | 2024-03-04 11:49 | W.PN.NEURO.1 ---
Today's Communication / Plan
-
.
Subjective/Objective
Subjective Data
Date of Service: March 04, 2024
Neurology follow-up note.
Ms. Lindsey reports no complaints.
No reports of headaches, change in vision or strength.
Labs: gluc 193, CK-97, normal ammonia.
PMH: right parietal convexity meningioma, R [employer] PHYSICIAN stroke, restrictive lung disease, chronic hypoxic respiratory failure, stroke, A-Fib, severe , HTN, DLP, DM, HFpEF, MDD, ROCHELLE, insomnia, class III obesity, CHAS(CPAP intolerant), Fibromyalgia
PSH: Bioprosthetic TAVR, BL TKA
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
FH: Both parents- alcohol addiction, mother is alive in her 90s has dementia
All: Sulfas, levofloxacin, amoxicillin
ROS: Negative for headache, positive for confusion
General: Obese, intermittently restless
Cardio: irregular rate and rhythm. Extremities 1+edema.
Neuro:
Mental Status: Awake, oriented to self, place. Unable to do serial 7s. Follows complex requests. Nonfluent, no hemineglect.
Cranial Nerves: Pupils are equally round and reactive to light. EOMs full. BTT L<R No ptosis. No nystagmus. Face symmetric. Normal hearing AU. No dysarthria.
Motor: No arm drift. Moves lower extremities within bed plane symmetrically.
Reflexes: Grasp on the left.
Sensory: Limited exam due to poor attention
Coordination: No tremors, clonic movements
Gait: deferred
Assessment and Plan:
I. Multifactorial encephalopathy (toxic(Lorazepam)-metabolic(uremia), hypoxic, vascular(chronic R AM[employer] PHYSICIAN infarct), neoplastic(meningioma)).
II. Right parietal convexity meningioma
III. Chronic R [facility] PHYSICIAN infarct
IV. PA-AFib, subtherapeutic INR on admission
-Aspiration precautions.
-Avoid medications, known to lower seizure threshold(Cefepime)
-Avoid EMT PARAMEDIC suppressants and anticholinergic medications.
-Brain MRI wo rochelle given subtherapeutic INR and A-Fib
-OP neuropsychological evaluation and cEEG
-DVT prophylaxis
I personally reviewed all radiology and labs along with past medical records pertinent to current medical problems. Total time spent in patient care is 37 minutes.
Thank you for allowing us to participate in the care of this patient. We will continue to follow. Please do not hesitate to contact us with any questions or concerns.
Objective Data
Vital Signs
Temp Pulse Resp BP Pulse Ox
36.7 C 77 16 131/65 98
03/04/24 11:00 03/04/24 11:24 03/04/24 11:24 03/04/24 08:10 03/04/24 11:24
Lab Results
03/04/24 05:01
03/04/24 05:01
PT 20.5 Sec (11.4-14.6) H 03/04/24 05:01
INR 1.77 03/04/24 05:01
APTT 31.3 Sec (23.4-35.0) 03/03/24 15:54
Sodium 144 mmol/L (135-145) 03/04/24 05:01
Potassium 3.1 mmol/L (3.5-5.1) L 03/04/24 05:01
BUN 41 mg/dl (7-17) H 03/04/24 05:01
Glucose 116 mg/dl (70-99) H 03/04/24 05:01
Calcium 9.1 mg/dl (8.4-10.2) 03/04/24 05:01
Ffn-O-Ureykjyklup Pept 3690 pg/ml 03/03/24 05:51
Ur Buprenorphine Negative (Negative) 03/03/24 10:39
Patient Allergies
amoxicillin trihydrate [From Augmentin] Allergy (Verified 11/01/24 05:37)
patient states severe nausea and intestinal pain
cat dander Allergy (Verified 03/03/24 05:37)
Sinus congestion
cigarette smoke Allergy (Verified 03/03/24 05:37)
Positive skin test to tobacco
dog dander Allergy (Verified 03/03/24 05:37)
Sinus congestion
grass pollen Allergy (Verified 03/03/24:37)
Sinus congestion, cough
levofloxacin [From Levaquin] Allergy (Verified 03/03/24 05:37)
GI Symptoms
mold Allergy (Verified 03/03/24:37)
Sinus congestion, cough
Sulfa (Sulfonamide Antibiotics) Allergy (Verified 03/03/24 05:37)
INTESTINAL PAIN
tree and shrub pollen Allergy (Verified 03/03/24 05:37)
Sinus congestion, cough
Vital Signs and Labs
-
Vital Signs and Labs:
Vital Signs
Temp Pulse Resp BP Pulse Ox
36.7 C 77 16 131/65 98
03/04/24 11:00 03/04/24 11:24 03/04/24 11:24 03/04/24 08:10 03/04/24 11:24
Lab Results
03/04/24 05:01
03/04/24 05:01
PT 20.5 Sec (11.4-14.6) H 03/04/24 05:01
INR 1.77 03/04/24 05:01
APTT 31.3 Sec (23.4-35.0) 03/03/24 15:54
Sodium 144 mmol/L (135-145) 03/04/24 05:01
Potassium 3.1 mmol/L (3.5-5.1) L 03/04/24 05:01
BUN 41 mg/dl (7-17) H 03/04/24 05:01
Glucose 116 mg/dl (70-99) H 03/04/24 05:01
Calcium 9.1 mg/dl (8.4-10.2) 03/04/24 05:01
Nze-V-Hkkbqxnamey Pept 3690 pg/ml 03/03/24 05:51
Ur Buprenorphine Negative (Negative) 03/03/24 10:39
Medications
-
Medications:
Generic Name Dose Route Start Last Admin
Trade Name Freq PRN Reason Stop Dose Admin
Acetaminophen 650 mg 03/03/24 12:07
Acetaminophen 325 Mg Tablet PO 03/31/24 12:06
Q4HPRN PRN
mild pain/ROOT/temp> 100.4F
Albuterol 2 puff 03/03/24 12:07
Albuterol Hfa [90 Mcg/Dose] Inhaler INH
R Q6HPRN PRN
sob
Protocol
Albuterol Sulfate 2.5 mg 03/03/24 16:00 03/04/24 11:24
Albuterol Nebs 2.5 Mg/3 Ml Ampul INH 2.5 mg
R QID MARION Administration
Protocol
Atorvastatin Calcium 10 mg 03/03/24 18:00 03/03/24 17:14
Atorvastatin (Lipitor) 10 Mg Tablet PO 03/31/24 17:59 10 mg
QPM MARION Administration
Bisacodyl 10 mg 03/03/24 12:07
Bisacodyl 10 Mg Rectal Suppository RECTAL 03/31/24 12:06
[id number] PRN
constipation
Budesonide 0.5 mg 03/03/24 20:00 03/04/24 07:12
Budesonide (Pulmicort Respules) 0.5 Mg/2 Ml INH 0.5 mg
R BID MARION Administration
Protocol
Dextrose 12.5 grams 03/03/24 12:07
Dextrose 50% (0.5 Grams/Ml) 50 Ml Syringe IV 03/31/24 12:06
[id number] PRN
hypoglycemia
Protocol
Digoxin 125 mcg 03/04/24 08:00 03/04/24 08:14
Digoxin 125 Mcg Tablet PO 04/01/24 07:59 125 mcg
DAILY MARION Administration
Glucagon 1 mg 03/03/24 12:07
Glucagon 1 Mg Vial IM 03/31/24 12:06
PRN PRN
hypoglycemia
Protocol
Piperacillin Sod/Tazobactam Sod 3.375 gram in 50 mls @ 100 mls/hr 03/03/24 10:00 03/04/24 10:27
Zosyn IV 50 mls
Q6H MARION Administration
Vancomycin HCl 1 each/ Device 0 mls @ 0 mls/hr 03/03/24 10:00
IV
PER PROTOCOL MARION
Protocol
As Directed
Vancomycin HCl 1 gram in 200 mls @ 200 mls/hr 03/04/24 20:00
Vancocin IV 03/04/24 20:59
ONCE ONE
Insulin Aspart 0 units 03/03/24 12:07 03/04/24 07:34
Insulin Aspart Low Resistance 300 Units/3 Ml Pen.Injctr SC 03/31/24 12:06 Not Given
AC MARION
Protocol
Metoprolol Succinate 50 mg 03/03/24 22:00 03/03/24 22:25
Metoprolol 50 Mg Extended Release Tablet PO 03/31/24 21:59 50 mg
HS MARION Administration
Metoprolol Succinate 100 mg 03/04/24 08:00 03/04/24 08:11
Metoprolol 100 Mg Extended Release Tablet PO 04/01/24 07:59 100 mg
DAILY MARION Administration
Miconazole Nitrate 0 applic 03/03/24 20:00 03/04/24 08:11
Miconazole Powder Bottle TOPICAL 03/31/24 19:59 1 applic
BID MARION Administration
Oxycodone HCl 5 mg 03/03/24 12:07
Oxycodone 5 Mg Regular Release Tablet PO 03/17/24 12:06
Q4HPRN PRN
moderate pain
Polyethylene Glycol 17 grams 03/03/24 12:07
Polyethylene Glycol Powder 17 Grams Packet PO 03/31/24 12:06
DAILYPRN PRN
constipation
Senna/Docusate Sodium 1 tablet 03/03/24 12:07
Docusate W/Senna (Arely-Colace) Tablet PO 03/31/24 12:06
BIDPRN PRN
constipation
Sodium Chloride 0 flush 03/03/24 11:00
Sodium Chloride 0.9% (Flush) Syringe IV 03/31/24 10:59
PER PROTOCOL MARION
Tiotropium Chandler 2 puff 03/04/24 08:00 03/04/24 07:12
Tiotropium (Spiriva Respimat) 2.5 Mcg Inhaler INH 04/01/24 07:59 2 puff
R DAILY MARION Administration
Protocol
Torsemide 60 mg 03/04/24 08:00 03/04/24 08:10
Torsemide 20 Mg Tablet PO 04/01/24 07:59 60 mg
DAILY MARION Administration
Warfarin Sodium 3 mg 03/04/24 06:05
Warfarin 2.5 Mg Tablet PO 03/08/24 17:59
QPM MARION
Home Medications
-
Home Medications
amitriptyline 25 mg tablet 50 mg PO HS Mental Health/Anxiety 03/05/09
duloxetine 60 mg capsule,delayed release 60 mg PO DAILY Mental Health/Anxiety 01/11/14
atorvastatin 10 mg tablet 10 mg PO QPM High cholesterol 02/10/22
glipizide 2.5 mg tablet, extended release 24 hr 2.5 mg PO BID Diabetes 02/10/22
metformin 500 mg tablet 500 mg PO BID Diabetes 02/10/22
metoprolol succinate 50 mg tablet,extended release 24 hr 100 mg PO DAILY Blood pressure 02/10/22
revefenacin 175 mcg/3 mL solution for nebulization (Yupelri) 175 mcg inhalation R DAILY Lung/breathing issues 02/10/22
tramadol 50 mg tablet 50 mg PO DAILY Pain 02/10/22
arformoterol 15 mcg/2 mL solution for nebulization (Brovana) 2 ml inhalation R BID Lung/breathing issues 04/02/22
budesonide 0.5 mg/2 mL suspension for nebulization 0.5 mg inhalation R BID Lung/breathing issues 04/02/22
cyanocobalamin (vitamin B-12) 2,500 mcg sublingual tablet (Vitamin B-12) 2,500 mcg sublingual DAILY Supplement 04/02/22
multivitamin 1 tab PO DAILY Supplement 04/02/22
calcium 500 mg (as carbonate)-vitamin D3 5 mcg (200 unit) tablet (Oyster Shell Calcium-Vitamin D3) 500 mg PO DAILY Supplement 04/08/22
biotin 10,000 mcg chewable tablet (Hair, Skin and Nails (biotin)) 10,000 mcg PO DAILY Supplement 01/19/24
albuterol sulfate 90 mcg/actuation aerosol inhaler 2 puff inhalation R Q6HPRN PRN sob 03/03/24
digoxin 125 mcg (0.125 mg) tablet 125 mcg PO DAILY 03/03/24
metoprolol succinate 50 mg tablet,extended release 24 hr 50 mg PO HS Arrhythmia 03/03/24
torsemide 20 mg tablet 60 mg PO DAILY Fluid retention/Swelling 03/03/24
warfarin 2.5 mg tablet 2.5 mg PO QPM Blood Clot Prevention/Tx 03/03/24
--- NOTE | 2024-03-04 11:51 | CM ---
CM following re: discharge planning.
Reviewed pt's chart, met with pt.
Pt is a 68 year old female, admitted with primary dx of Akathisia with mild confusion, concern for early toxic metabolic encephalopathy with possible UTI. Anxiety d/o.
Pt reports she lives with 2SH, 2 steps to enter, has suppertime son. 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 Pt expressed her desire to return back home
at discharge.
PCP: Sanjay Carrera
Pharmacy: [facility]
D/c plan: home with anticipated no needs. Family to transport at discharge.
CM will follow with discharge plan updates as hospitalization progresses
--- NOTE | 2024-03-04 12:51 | W.PN.HOSP.TC ---
Today's Communication/Plan
-
stop Abx
check ddimer
MRI brain as per neurology
increase Coumadin
Assessment / Plan
Assessment / Plan
68yo F with PMHx of COPD, HTN, HLD, anxiety, CHAS intollerant to CPAP, s/p TAVR, Afib on coumadin, pulmonary HTN, chronic hypoxic respiratory failure on 3L home O2, HFpEF brought by her with mild agitation and irresistible ordonez to move
started this AM. Patient also c/o vague abdominal discomfort on arrival, however later during this admission it completely resolved. Could not exclude serotonin syndrome with recent change of Amitriptiline to trazodone
A/P:
#Akathisia with mild confusion, concern for early toxic metabolic encephalopathy with possible UTI
Anxiety d/o
CT head showed hemangioma
NEurology and Psych consult
MRI brain
hold Amitriptiline, duloxetine, tramasol
Bcx NTD, UA unremarkable for infection, XR without pneumonia - reasonable to stop Abx
Speech screening by RN
#Acute on chronic hypoxic respiratory failure, most likely 2/2 agitation and tachypnea
#COPD, no clear exacerbation since no wheezing
#Chronic HFpEF
#CHAS not tolerat of CPAP
#Pulmonary HTN 2/2 COPD
Pulm consult, cont O2, cont bronchodilators
with wirsening failure might need intubation, will follow clinically
Patient with dry mouth, no LE swelling, possible overdiuresis - gentle hydration with bolus of NS 250ml
Patient weight upon last DC 133kg, now 135kg - with clinical dryness on admission , dount CHF component at this time, follow daily weight and avoid IV diuretics at this time 2/2 mild INR elevation
check Ddimer
#Abd pain
CTA in ED done, but poor quality 2/2 movements
No gross abnormality
Lipase WNL
#Hypokalemia
#Elevated Cr without AIYANA
possible 2/2 diuretics
replete and follow
Check Mg
#Elevated lactate without acidosis
possibly 2/2 hypoxia and metformin with mild dehydration
follow lactate
#Subtherapeutic INR
#AFib, persistent
recently with INR>7 as oper , so Coumadin held for three days, restarted on Wednesday
Cont coumadin and follow INR, slowly increase dose.
Reasonable for
telemetery
Digoxin level WNL, cont doigoxin
#chronic erythrocytosis 2/2 CHAS and most likely chronic hypoxia
follow CBC
#DM type 2 with neuropapthy
Accuchecks, Insulin SS, DM diet, check HgbA1c
cont Glipizide
#HLD
cont meds
#Obesity
BMI 48.2
advise to decrease calorie intake
#Chronic elevation of alk.phos
#Elevated bilirubin
seen in Jan
follow trend
hepatitis panel neg
follow LFT
US RUQ with normal CBD, no sonographic signs of cholecystitis
LDH mildly elevated without anemia
#Liver lesion
MRI indicated
#Subclinical hyperthyroidism vs euthyroid sick syndrome
FT4, FT3 WNL
DVT ppx on Coumadin
FUll code as per discussion with and patient bedside
I have spent at least 58min reviewing chart, test results, communication with consultants and direct patient care
Anticipated Discharge: > 48 hours
Subjective/Interval History
-
Date of Service: March 04, 2024
Objective Data
-
Labs:
Laboratory Results
03/04/24
05:01
WBC 8.9
Hgb 15.2
Hct 45.5
Plt Count 181
PT 20.5 H
INR 1.77
Sodium 144
Potassium 3.1 L
Chloride 100
Carbon Dioxide 30
BUN 41 H
Creatinine 1.1 H
Glucose 116 H
Calcium 9.1
Total Bilirubin 2.2 H
AST 34
ALT 26
Alkaline Phosphatase 132 H
Vital Signs:
Vital Signs
Temp Pulse Resp BP Pulse Ox
98.0 F 77 16 131/65 98
03/04/24 11:00 03/04/24 11:24 03/04/24 11:24 03/04/24 08:10 03/04/24 11:24
I&O
03/03/24 03/04/24 03/05/24
06:59 06:59 05:59
Intake Total 910 / 910 240 / 240
Output Total 500 / 500
Balance 910 / 910 -260 / -260
Review of Systems
-
History Source: Patient
All other systems: Reviewed and negative
Physical Exam
-
General: No Apparent Distress and Obese
HEENT: Normocephalic
Cardiac: Irregular Rhythm
GI: Soft, Nontender and Nondistended
Musculoskeletal: No Clubbing, No Cyanosis and No Edema
Skin: Warm
Psych: Calm
[2024-03-04 13:42] LABS: D-Dimer 0.44 ug/mlFEU (0.00-0.50)
[2024-03-04] MEDS: KCL 40 MEQ PO (14:12)
--- NOTE | 2024-03-04 16:07 | PTCARENOTE ---
patient OOB chair. not in distress. vSS unable to obtain accurate POX due to poor circulation. Lungs diminished . D-D negative earlier today. Currently POx 99%on 15L via nasal canula
--- NOTE | 2024-03-04 16:19 | W.PN.UPDATE ---
Update Note
Progress Note Update
Pt seen at bedside with & niece present. Does not remember much from the last few weeks - says she has been told that she has been behaving oddly and 'mean', which is out of character for her. Still unclear as to what caused change in mental
status - although unusual to have serotonin syndrome at low doses of serotonergic agents, it does seem that no other reasonable cause has been found thus far so it is a possibility. On exploration, it seems that her sleep because poor about 2 yrs
ago. No trouble falling asleep but unable to stay asleep. Pt also has significant CHAS - provided psychoed as to how CHAS affects sleep & importance of using CPAP, rather than just using sedating medications to sleep through apneic events. Pt & family
report that pt struggles with using CPAP as she feels very claustrophobic and anxious when trying to use it. Discussed trial of low dose propranolol to help mitigate some of this anxiety without causing sedation or affecting respirations.
Trial of propranolol 20mg HS + 20mg PRNHS if first dose inadequate
Would avoid using sedating medication as pt needs to use CPAP, CHAS is most likely primary cause of her insomnia
[2024-03-04] MEDS: LIPITOR 10 MG PO (16:59)
[2024-03-04] MEDS: COUMADIN 3 MG PO (17:10)
[2024-03-04 17:31] LABS: Glucose - Point of Care 197 mg/dl (70-99)
[2024-03-04] MEDS: NOVOLOG FLEXPEN-MODERATE RESISTANCE SC (18:31)
[2024-03-04] MEDS: INDERAL 20 MG PO (22:24)
[2024-03-04 22:27] LABS: Glucose - Point of Care 107 mg/dl (70-99)
[2024-03-04] MEDS: TOPROL XL 50 MG PO (23:00)
[2024-03-05] VITALS (12 sets, daily range): BP systolic 89–138; BP diastolic 64–103; BMI 45.9; BMI 47.3
--- NOTE | 2024-03-05 00:52 | PTCARENOTE ---
Pt. AAOx3 but forgetful at times. VILLAFUERTE, ambulates in room with standby assist. Bed alarm on because pt. impulsive at times. Afib on tele. HR 60s-80s. Afebrile. BP 100s/70s. Voiding in bathroom without problem. diab diet. Round, obese abd. On
15L midflow. Was placed on bipap by RT HS around 0035. At 0050, pt yelling under bipap mask and throwing things off her bed. Bipap removed and pt. stated she felt like she was suffocating. Calmed pt down and reassured her but she refused to try mask
again. Placed back on 15L and RT notified. Encouraged pt to get some sleep.
--- NOTE | 2024-03-05 01:35 | PTCARENOTE ---
Pt. suddenly sobbing in bed. RN immediately into room. Pt. reports extreme anxiety and not wanting to 'feel this way anymore.' Support given. LARRY Lopez notified. Ativan ordered.
[2024-03-05] MEDS: ATIVAN 0.5 MG IV (02:08)
[2024-03-05] MEDS: NSS (PRESERVATIVE FREE) 0.25 ML IV (02:09)
[2024-03-05] MEDS: ZOSYN 50 IV (04:07)
[2024-03-05 04:24] LABS: Venous Blood Gas B.E. 6.4 mmol/L (-4 to +4); Venous Blood Gas HCO3 35.6 mmol/L (22-27); Venous Blood Gas O2 Sat % 78.3 %; Venous Blood Gas pCO2 69 mmHg (35-48); Venous Blood Gas pH 7.32 (7.32-7.43); Venous Blood Gas pO2 51 mmHg (30-50)
[2024-03-05 04:37] LABS: INR 2.15; PT 23.9 Sec (11.4-14.6)
[2024-03-05 04:44] LABS: % Eosinophils 3.6 % (0-6); % Immature Granulocytes 0.6 % (0-0.5); % Lymphocytes 24.7 % (20.5-51.1); % Monocytes 9.3 % (1.7-9.3); % Neutrophils 60.8 % (42.2-75.2); Absolute Basophils 0.1 10^3/uL (0-0.2); Absolute Eosinophils 0.3 10^3/uL (0-0.7); Absolute Immature Granulocytes 0.1 10^3/uL (0-0.05); Absolute Monocytes 0.8 10^3/uL (0.1-0.6); Absolute Neutrophils 4.9 10^3/uL (1.4-6.5); Hematocrit 47.2 % (37.0-47.0); Hemoglobin 15.6 g/dL (12.0-16.0); Mean Corp Hgb Conc. 33.1 g/dL (33.0-37.0); Mean Corpuscular Hgb 31.7 pg (27.0-31.0); Mean Corpuscular Volume 95.9 fL (81.0-99.0); Mean Platelet Volume 11.3 fL (7.4-10.4); Nucleated Red Blood Cells % 0.2 %; Platelet Count 185 10^3/uL (130-400); Red Blood Cell Count 4.92 10^6/uL (4.20-5.40); Red Cell Dist. Width 16.6 % (11.5-14.5); White Blood Cell Count 8.1 10^3/uL (4.8-10.8)
--- NOTE | 2024-03-05 04:59 | PTCARENOTE ---
Pt. restless, unable to sit still for more than a few minutes. Reports anxiety is slightly improved but she cannot sleep. She is pulling at her tele monitor and oxygen tubing often despite redirecting her. Bed alarm on.
[2024-03-05 05:07] LABS: Vancomycin Random 17.2 ug/ml
[2024-03-05 05:12] LABS: ALT (SGPT) 28 U/L (0-35); AST (SGOT) 37 U/L (14-36); Albumin 3.8 g/dl (3.5-5.0); Alkaline Phosphatase 148 U/L (38-126); Blood Urea Nitrogen 36 mg/dl (7-17); Calcium 8.9 mg/dl (8.4-10.2); Carbon Dioxide 34 mmol/L (22-30); Chloride 98 mmol/L (98-107); Estimated Creatinine Clearance 80 ml/min; Glucose 144 mg/dl (70-99); Potassium 3.6 mmol/L (3.5-5.1); Sodium 143 mmol/L (135-145); Total Protein 6.8 g/dl (6.3-8.2); eGFR > 60.00
[2024-03-05 05:14] LABS: Venous Blood Gas O2 Therapy 15L mid flow
--- NOTE | 2024-03-05 06:47 | W.PN.INTV ---
Today's Communication / Plan
Recommendations
Continue with warfarin therapy, INR greater than 2
Wean oxygen as able
May require more aggressive diuresis? Blood pressure is limiting
May require right heart catheterization, cardiology evaluation
Oxygen requirement is out of proportion to underlying pulmonary status per chest x-ray and recent CT and abdominal imaging
Assessment
-
Patient is a 68 year old F with PMHx of COPD, HTN, HLD, anxiety, CHAS intolerant to CPAP, s/p TAVR, Afib on coumadin, pulmonary HTN, chronic hypoxic respiratory failure on 3L home O2, HFpEF brought by her with mild agitation and
restlessness. On arrival to ER, there is noted mild elevation of creatinine, lactate and hypokalemia. Patient has been having urinary retention as well, notes she was doing well on diuretics but then stopped voiding in the past few days
despite increased dose. proBNP 3690, CXR unchanged compared to prior. We are consulted for eval.
Acute respiratory failure with hypoxia
Requiring 10 to 15 L, improved
Acute HFpEF exacerbation, proBNP 3690
Urinary retention
Change in MS, restlessness
Medical noncompliance
Chronic conditions [employer]PER[employer]:
Reported history of COPD/asthma, follows with Russ Smith
Atrial flutter with RVR (new onset)
Mild�moderate pulmonary hypertension with PASP 45�50 assuming an RAP of 15 mmHg
Severe CHAS intolerant to CPAP (per patient) with secondary polycythemia (initial Hb 18.5 on 01/19/2024)
Suspected OHS
Morbid obesity, BMI 48
Hypertension
Hyperlipidemia
DM type II
Aortic stenosis s/p TAVR
Anxiety
History of CVA
Former tobacco smoker (quit 1999)
Plan:
At this time, patient appears to be objectively and subjectively improved.
Despite using 15 L, saturation adequate
She does go down intermittently to the mid 80s, low 80s but is without symptoms, unclear whether accurate
VBG this morning 7.32/69/51
Refusing BiPAP
She feels her breathing is close to her baseline
Chest x-ray today stable, cannot rule out component of pulmonary edema
Moving forward
Continue to wean oxygen, currently on 15 L mid flow, 97%
Home use of 3L NC, can wean back to baseline
Assess discharge supplemental oxygen needs prior to discharge
CHF/Obesity/atelectasis likely contributing
I do feel her oxygen requirement is out of proportion to her radiographic findings
Echo 01/19/2024, EF 75%, status post TAVR, enlarged RV size with reduced function, septal flattening consistent with RV pressure and volume overload, PA pressure 50
HF exacerbation due to urinary retention
ProBNP >3000
Continue diuresis. I wonder if she requires additional dosing of diuretic therapy
Marginal blood pressure makes this difficult
Fluid status is not negative
Follow daily weights
Defer this to primary service. Patient well-known to [facility] cardiology
Not sure whether she may benefit from cardiac evaluation, more aggressive diuresis
Patient may right heart catheterization if oxygen requirement continues to be an issue
Patient has severe CHAS intolerant to CPAP
She is aware of the risks of CPAP noncompliance with CHAS including risk of arrhythmia, cardiovascular disease, hypertension, pulmonary hypertension, and worsening quality of life
She also likely has obesity hypoventilation syndrome which carries an even greater risk of pulmonary hypertension compared to CHAS
ABG on last admission shows mild acute respiratory acidosis with pH 7.33 and pCO2 47 - nocturnal CPAP/BiPAP is recommended
I discussed this with her today and they are willing to try PAP, will order BIPAP
He notes she had been scheduled for split study and when attempted she declined during test due to intolerance
This mostly certainly could be contributing to mental status issues
Medical noncompliance is an issue
She will need to follow-up with her sleep physician
If she is unable to follow-up, she is welcome to follow-up at our practice
Change in MS, restless behavior noted
History of CVA, CT head showing meningioma
Neuro has been following
Appears to be back to baseline this morning
Psychiatry also noted. Unclear whether she may have presented with serotonin syndrome
DVT prophylaxis-on warfarin, INR now greater than 2
Nutrition
Physical therapy
She ultimately will follow-up with her private circus performer, Dr. Smith.
If she wishes to transition to us at [facility] we will facilitate
Reviewed with critical care nursing
Diagnostic Data
CXR 01/19/24- Mild pulmonary edema. No definite pleural effusion.
CTA Chest 01/19/2024: No evidence of pulmonary embolism or active pulmonary process. Bilateral hilar lymphadenopathy. It is difficult to evaluate for hilar lymphadenopathy on the previous CT from 09/09/2022 given the absence of intravenous contrast on
this exam. Mediastinal lymphadenopathy is unchanged. Dilated pulmonary arterial system which can be seen in the setting of pulmonary arterial hypertension.
CT Head 03/03/24- 1). There are no acute intracranial abnormalities
2). Old 6.5 cm right occipital infarct
3). 2.8 cm meningioma over the anterolateral right parietal convexity
ECHO 01/19/24- Hyperdynamic left ventricular systolic function. LV ejection fraction is 70- 75%. Mild mitral stenosis. s/p TAVR 29 mm Medtronic Evolut. Peak/mean gradients across the aortic valve are 8/5 mmHg. No aortic regurgitation. Enlarged right
ventricular size. Reduced right ventricular systolic function. Septal flattening in systole and diastole consistent with RV pressure and volume overload. Mild tricuspid regurgitation. Moderately elevated PASP. Estimated pulmonary artery pressure of
45-50 mmHg assuming a right atrial pressure of 15 mmHg. Compared to 05/01/22: RV dysfunction is now present. PASP was unable to be measured on prior study.
Reports and relevant images were personally reviewed.
Total time spent on this consultation __75__ includes review of history, physical exam, medications, laboratory data, personal review of imaging, extensive review of outpatient records, discussion with care team and respiratory therapy.
Subjective Dataa
Subjective Data
Date of Service:
Date of Service: March 05, 2024
Subjective:
Primary complaint is insomnia. Feels breathing is 2/10, close to her baseline. When her saturation is low, she is without symptoms. Denies chest pain, nausea. Ongoing issues with mood noted. Did not tolerate BiPAP overnight, refusing
Objective Data
Data Reviewed
Vital Signs / I&O / Oxygen:
Vital Signs
Temp Pulse Resp BP Pulse Ox
97.9 F 75 23 89/77 96
03/05/24 05:59 03/05/24 06:00 03/05/24 06:00 03/05/24 04:21 03/05/24 03:06
Intake and Output
03/03/24 03/04/24 03/05/24
06:59 06:59 05:59
Intake Total 910 / 910 1510 / 1510
Output Total 1500 / 1500
Balance 910 / 910 10 / 10
SaO2 96
Nasal Cannula flow liters per 15
minute
Physical Exam
General: Comfortable and Other (Large neck)
HEENT: Normocephalic and Anicteric
Cardiovascular: Regular Rhythm, Murmur (n), Rub (n) and Peripheral Edema (tr)
Respiratory: Wheeze (n), Crackles (n), Rhonchi (n), Non-Labored Respirations and Stridor (n)
GI: Soft, Non Distended (Obese) and Non Tender
Neurology: Awake, Alert and No Motor Deficits (Moves all extremities)
Skin: Cyanosis (n) and Jaundice
Labs/Micro/Reports
Lab Data
03/05/24 04:14
03/05/24 04:14
Laboratory Results
03/05/24
04:14
PT 23.9 H
INR 2.15
Microbiology
03/03/24 09:13 Blood/Venous Blood Culture - Preliminary
No Growth in 24 hours- Final report to follow
03/03/24 09:13 Blood/Venous Blood Culture - Preliminary
No Growth in 24 hours- Final report to follow
03/03/24 09:13 Nasal Swab Influenza Types A & B (WILLIAM) - Final
Negative for Influenza A & B, NAAT
Negative results must be combined with clinical observations
and patient history.
Nucleic Acid Amplification test (NAAT)performed on the
[employer] platform.
[2024-03-05] MEDS: PULMICORT 0.5 MG INH ×2 (07:17→19:49)
[2024-03-05] MEDS: SPIRIVA RESPIMAT 2.5 MCG 2 PUFF INH (07:17)
[2024-03-05] MEDS: VENTOLIN NEBULES 2.5 MG INH ×4 (07:18→19:49)
[2024-03-05 08:47] LABS: Glucose - Point of Care 138 mg/dl (70-99)
[2024-03-05] MEDS: TOPROL XL 100 MG PO (09:41)
[2024-03-05] MEDS: CYMBALTA DELAYED RELEASE 60 MG PO (09:41)
[2024-03-05] MEDS: DEMADEX 60 MG PO (09:41)
[2024-03-05] MEDS: DESENEX/MITRAZOL/ZEASORB 1 APPLIC TOPICAL ×2 (09:42→22:10)
[2024-03-05] MEDS: NOVOLOG FLEXPEN-MODERATE RESISTANCE SC ×3 (09:43→17:41)
[2024-03-05] MEDS: LANOXIN 125 MCG PO (09:45)
--- NOTE | 2024-03-05 10:53 | W.PN.HOSP.TC ---
Today's Communication/Plan
-
started Cymbalta
MRI brain pending
XR with improved edema - cont oral Torsemide
Wean off O2
Assessment / Plan
Assessment / Plan
68yo F with PMHx of COPD, HTN, HLD, anxiety, CHAS intollerant to CPAP, s/p TAVR, Afib on coumadin, pulmonary HTN, chronic hypoxic respiratory failure on 3L home O2, HFpEF brought by her with mild agitation and irresistible ordonez to move
started this AM. Patient also c/o vague abdominal discomfort on arrival, however later during this admission it completely resolved. Could not exclude serotonin syndrome with recent change of Amitriptyline to trazodone
A/P:
#Akathisia with mild confusion, concern for early toxic metabolic encephalopathy with possible UTI
Anxiety d/o
CT head showed hemangioma
Neurology and Psych consult
MRI brain
hold Amitriptyline, duloxetine, tramadol
Bcx NTD, UA unremarkable for infection, XR without pneumonia - reasonable to stop Abx
Speech screening by RN
#Acute on chronic hypoxic hypercapnic respiratory failure, most likely 2/2 agitation and tachypnea
#COPD, no clear exacerbation since no wheezing
#Chronic HFpEF
#CHAS not tolerant of CPAP
#Pulmonary HTN 2/2 COPD
Pulm consult, cont O2, cont bronchodilators
with worsening failure might need intubation, will follow clinically
Patient with dry mouth, no LE swelling, possible overdiuresis - gentle hydration with bolus of NS 250ml
Patient weight upon last DC 133kg, now 135kg - with clinical dryness on admission , dount CHF component at this time, follow daily weight and avoid IV diuretics at this time 2/2 mild INR elevation
Ddimer WNL with Wells score 0
#Abd pain
CTA in ED done, but poor quality 2/2 movements
No gross abnormality
Lipase WNL
#Hypokalemia
#Elevated Cr without AIYANA
possible 2/2 diuretics
replete and follow
Check Mg
#Elevated lactate without acidosis
possibly 2/2 hypoxia and metformin with mild dehydration
follow lactate
#Subtherapeutic INR
#AFib, persistent
recently with INR>7 as oper , so Coumadin held for three days, restarted on Wednesday
Cont coumadin and follow INR, slowly increase dose.
Reasonable for
telemetery
Digoxin level WNL, cont digoxin
#chronic erythrocytosis 2/2 CHAS and most likely chronic hypoxia
follow CBC
#DM type 2 with neuropathy
Accuchecks, Insulin SS, DM diet, check HgbA1c
cont Glipizide
#HLD
cont meds
#Obesity
BMI 48.2
advise to decrease calorie intake
#Chronic elevation of alk.phos
#Elevated bilirubin
seen in Sept
follow trend
hepatitis panel neg
follow LFT
US RUQ with normal CBD, no sonographic signs of cholecystitis
LDH mildly elevated without anemia
#Liver lesion
MRI indicated
#Subclinical hyperthyroidism vs euthyroid sick syndrome
FT4, FT3 WNL
DVT ppx on Coumadin
FUll code as per discussion with and patient bedside
I have spent at least 58min reviewing chart, test results, communication with consultants and direct patient care
Anticipated Discharge: 24 - 48 hours
Subjective/Interval History
-
Date of Service: March 05, 2024
Objective Data
-
Labs:
Laboratory Results
03/05/24
04:14
WBC 8.1
Hgb 15.6
Hct 47.2 H
Plt Count 185
PT 23.9 H
INR 2.15
Sodium 143
Potassium 3.6
Chloride 98
Carbon Dioxide 34 H
BUN 36 H
Creatinine 0.9
Glucose 144 H
Calcium 8.9
Total Bilirubin 2.0 H
AST 37 H
ALT 28
Alkaline Phosphatase 148 H
Vital Signs:
Vital Signs
Temp Pulse Resp BP Pulse Ox
97.9 F 81 16 89/77 99
03/05/24 05:59 03/05/24 07:18 03/05/24 07:18 03/05/24 04:21 03/05/24 07:18
I&O
03/04/24 03/05/24 03/06/24
07:59 06:59 06:59
Intake Total
Output Total
Balance
Review of Systems
-
History Source: Patient
All other systems: Reviewed and negative
Psych: Reports Anxious
Physical Exam
-
General: No Apparent Distress and Obese
Respiratory: Clear to Auscultation
Cardiac: Regular Rhythm
GI: Soft, Nontender and Nondistended
Genito-urinary: No Costovertebral Tender
Musculoskeletal: No Clubbing, No Cyanosis and No Edema
Skin: Warm
Psych: Calm
--- NOTE | 2024-03-05 11:31 | W.PN.NEURO.1 ---
Today's Communication / Plan
-
.
Subjective/Objective
Subjective Data
Date of Service: March 05, 2024
Neurology follow-up note.
24-hour events. Hypotensive down to 89/77 early in the morning. Afebrile. Saturating well on 10 L of mid flow nasal cannula. Lethargic. Received 0.5 mg of lorazepam at 2:08 am.
She was started on duloxetine 60 mg once a day in the morning.
PCO2-69
Labs:
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
PSH: Bioprosthetic TAVR, BL TKA
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
FH: Both parents- alcohol addiction, mother is alive in her 90s has dementia
All: Sulfas, levofloxacin, amoxicillin
ROS: Limited due to encephalopathy.
General: Obese, intermittently restless
Cardio: irregular rate and rhythm. Extremities 1+edema.
Neuro:
Mental Status: lethargic, oriented to name, age not to the hospital lethargic, oriented to name, age hospital. Did not know the name of the hospital, month or year. Requires constant stimulation to stay awake.
Cranial Nerves: Pupils are equally round and reactive to light. BTT L<R. No dysarthria.
Motor: Moves lower extremities within bed plane symmetrically with stimulation
Sensory: Limited exam due to poor attention
Coordination: No tremors, clonic movements
Gait: deferred
Assessment and Plan:
I. Multifactorial encephalopathy (toxic(Lorazepam), vascular(chronic R SALES [employer] MERCHANDISING REPRESENTATIVE infarct), hypoxic) clinically worse
II. Right parietal convexity meningioma
III. Chronic R [employer] MERCHANDISING REPRESENTATIVE infarct
IV. PA-AFib, subtherapeutic INR on admission
-Aspiration precautions.
-Avoid WALLPAPER HANGER suppressants and anticholinergic medications.
-Brain MRI wo rochelle given subtherapeutic INR and A-Fib
-DVT prophylaxis
I personally reviewed all radiology and labs along with past medical records pertinent to current medical problems. Total time spent in patient care is 35 minutes.
Objective Data
Vital Signs
Temp Pulse Resp BP Pulse Ox
36.6 C 91 16 89/77 99
03/05/24 05:59 03/05/24 11:27 03/05/24 11:27 03/05/24 04:21 03/05/24 07:18
Lab Results
03/05/24 04:14
03/05/24 04:14
PT 23.9 Sec (11.4-14.6) H 03/05/24 04:14
INR 2.15 03/05/24 04:14
APTT 31.3 Sec (23.4-35.0) 03/03/24 15:54
Sodium 143 mmol/L (135-145) 03/05/24 04:14
Potassium 3.6 mmol/L (3.5-5.1) 03/05/24 04:14
BUN 36 mg/dl (7-17) H 03/05/24 04:14
Glucose 144 mg/dl (70-99) H 03/05/24 04:14
Calcium 8.9 mg/dl (8.4-10.2) 03/05/24 04:14
Vgm-C-Gxvxswyonmv Pept 3690 pg/ml 03/03/24 05:51
Ur Buprenorphine Negative (Negative) 03/03/24 10:39
Patient Allergies
amoxicillin trihydrate [From Augmentin] Allergy (Verified 03/03/24 05:37)
patient states severe nausea and intestinal pain
cat dander Allergy (Verified 03/03/24 05:37)
Sinus congestion
cigarette smoke Allergy (Verified 03/03/24 05:37)
Positive skin test to tobacco
dog dander Allergy (Verified 03/03/24 05:37)
Sinus congestion
grass pollen Allergy (Verified 03/03/24 05:37)
Sinus congestion, cough
levofloxacin [From Levaquin] Allergy (Verified 03/03/24 05:37)
GI Symptoms
mold Allergy (Verified 03/03/24 05:37)
Sinus congestion, cough
Sulfa (Sulfonamide Antibiotics) Allergy (Verified 03/03/24 05:37)
INTESTINAL PAIN
tree and shrub pollen Allergy (Verified 03/03/24 05:37)
Sinus congestion, cough
Vital Signs and Labs
-
Vital Signs and Labs:
Vital Signs
Temp Pulse Resp BP Pulse Ox
36.6 C 91 16 89/77 96
03/05/24 05:59 03/05/24 11:27 03/05/24 11:27 03/05/24 04:21 03/05/24 11:27
Lab Results
03/05/24 04:14
03/05/24 04:14
PT 23.9 Sec (11.4-14.6) H 03/05/24 04:14
INR 2.15 03/05/24 04:14
APTT 31.3 Sec (23.4-35.0) 03/03/24 15:54
Sodium 143 mmol/L (135-145) 03/05/24 04:14
Potassium 3.6 mmol/L (3.5-5.1) 03/05/24 04:14
BUN 36 mg/dl (7-17) H 03/05/24 04:14
Glucose 144 mg/dl (70-99) H 03/05/24 04:14
Calcium 8.9 mg/dl (8.4-10.2) 03/05/24 04:14
Cjh-P-Sjoqdsimwhf Pept 3690 pg/ml 03/03/24 05:51
Ur Buprenorphine Negative (Negative) 03/03/24 10:39
Medications
-
Medications:
Generic Name Dose Route Start Last Admin
Trade Name Freq PRN Reason Stop Dose Admin
Acetaminophen 650 mg 03/03/24 12:07
Acetaminophen 325 Mg Tablet PO 03/31/24 12:06
Q4HPRN PRN
mild pain/ROOT/temp> 100.4F
Albuterol 2 puff 03/03/24 12:07
Albuterol Hfa [90 Mcg/Dose] Inhaler INH
R Q6HPRN PRN
sob
Protocol
Albuterol Sulfate 2.5 mg 03/03/24 16:00 03/05/24 11:26
Albuterol Nebs 2.5 Mg/3 Ml Ampul INH 2.5 mg
R QID MARION Administration
Protocol
Atorvastatin Calcium 10 mg 03/03/24 18:00 03/04/24 16:59
Atorvastatin (Lipitor) 10 Mg Tablet PO 03/31/24 17:59 10 mg
QPM MARION Administration
Bisacodyl 10 mg 03/03/24 12:07
Bisacodyl 10 Mg Rectal Suppository RECTAL 03/31/24 12:06
[id number] PRN
constipation
Budesonide 0.5 mg 03/03/24 20:00 03/05/24 07:17
Budesonide (Pulmicort Respules) 0.5 Mg/2 Ml INH 0.5 mg
R BID MARION Administration
Protocol
Dextrose 12.5 grams 03/03/24 12:07
Dextrose 50% (0.5 Grams/Ml) 50 Ml Syringe IV 03/31/24 12:06
[id number] PRN
hypoglycemia
Protocol
Digoxin 125 mcg 03/04/24 08:00 03/05/24 09:45
Digoxin 125 Mcg Tablet PO 04/01/24 07:59 125 mcg
DAILY MARION Administration
Duloxetine HCl 60 mg 03/05/24 09:00 11/03/24 09:41
Duloxetine Delayed Release 60 Mg Capsule PO 04/02/24 08:59 60 mg
DAILY MARION Administration
Glucagon 1 mg 03/03/24 12:07
Glucagon 1 Mg Vial IM 03/31/24 12:06
PRN PRN
hypoglycemia
Protocol
Insulin Aspart 0 units 03/04/24 17:43 03/05/24 09:43
Insulin Aspart Moderate Resistance 300 Units/3 Ml Pen.Injctr SC 04/01/24 17:42 Not Given
AC MARION
Protocol
Metoprolol Succinate 50 mg 03/03/24 22:00 03/04/24 23:00
Metoprolol 50 Mg Extended Release Tablet PO 03/31/24 21:59 50 mg
HS MARION Administration
Metoprolol Succinate 100 mg 03/04/24 08:00 03/05/24 09:41
Metoprolol 100 Mg Extended Release Tablet PO 04/01/24 07:59 100 mg
DAILY MARION Administration
Miconazole Nitrate 0 applic 03/03/24 20:00 03/05/24 09:42
Miconazole Powder Bottle TOPICAL 03/31/24 19:59 1 applic
BID MARION Administration
Oxycodone HCl 5 mg 03/03/24 12:07
Oxycodone 5 Mg Regular Release Tablet PO 03/17/24 12:06
Q4HPRN PRN
moderate pain
Polyethylene Glycol 17 grams 03/03/24 12:07
Polyethylene Glycol Powder 17 Grams Packet PO 03/31/24 12:06
DAILYPRN PRN
constipation
Propranolol HCl 20 mg 03/04/24 22:00 03/04/24 22:24
Propranolol 20 Mg Regular Release Tablet PO 04/01/24 21:59 20 mg
HS MARION Administration
Propranolol HCl 20 mg 03/04/24 16:25
Propranolol 20 Mg Regular Release Tablet PO 04/01/24 16:24
HSPRN PRN
anxiety if 1st dose ineffectiv
Senna/Docusate Sodium 1 tablet 03/03/24 12:07
Docusate W/Senna (Arely-Colace) Tablet PO 03/31/24 12:06
BIDPRN PRN
constipation
Sodium Chloride 0 flush 03/03/24 11:00
Sodium Chloride 0.9% (Flush) Syringe IV 03/31/24 10:59
PER PROTOCOL MARION
Tiotropium [place] 2 puff 03/04/24 08:00 03/05/24 07:17
Tiotropium (Spiriva Respimat) 2.5 Mcg Inhaler INH 04/01/24 07:59 2 puff
R DAILY MARION Administration
Protocol
Torsemide 60 mg 03/04/24 08:00 03/05/24 09:41
Torsemide 20 Mg Tablet PO 04/01/24 07:59 60 mg
DAILY MARION Administration
Warfarin Sodium 3 mg 03/04/24 18:00 03/04/24 17:10
Warfarin 3 Mg Tablet PO 03/09/24 17:59 3 mg
QPM MARION Administration
Home Medications
-
Home Medications
amitriptyline 25 mg tablet 50 mg PO HS Mental Health/Anxiety 03/05/09
duloxetine 60 mg capsule,delayed release 60 mg PO DAILY Mental Health/Anxiety 01/11/14
atorvastatin 10 mg tablet 10 mg PO QPM High cholesterol 02/10/22
glipizide 2.5 mg tablet, extended release 24 hr 2.5 mg PO BID Diabetes 02/10/22
metformin 500 mg tablet 500 mg PO BID Diabetes 02/10/22
metoprolol succinate 50 mg tablet,extended release 24 hr 100 mg PO DAILY Blood pressure 02/10/22
revefenacin 175 mcg/3 mL solution for nebulization (Yupelri) 175 mcg inhalation R DAILY Lung/breathing issues 02/10/22
tramadol 50 mg tablet 50 mg PO DAILY Pain 02/10/22
arformoterol 15 mcg/2 mL solution for nebulization (Brovana) 2 ml inhalation R BID Lung/breathing issues 04/02/22
budesonide 0.5 mg/2 mL suspension for nebulization 0.5 mg inhalation R BID Lung/breathing issues 04/02/22
cyanocobalamin (vitamin B-12) 2,500 mcg sublingual tablet (Vitamin B-12) 2,500 mcg sublingual DAILY Supplement 04/02/22
multivitamin 1 tab PO DAILY Supplement 04/02/22
calcium 500 mg (as carbonate)-vitamin D3 5 mcg (200 unit) tablet (Oyster Shell Calcium-Vitamin D3) 500 mg PO DAILY Supplement 04/08/22
biotin 10,000 mcg chewable tablet (Hair, Skin and Nails (biotin)) 10,000 mcg PO DAILY Supplement 01/19/24
albuterol sulfate 90 mcg/actuation aerosol inhaler 2 puff inhalation R Q6HPRN PRN sob 03/03/24
digoxin 125 mcg (0.125 mg) tablet 125 mcg PO DAILY Heart Disease/Condition 03/03/24
metoprolol succinate 50 mg tablet,extended release 24 hr 50 mg PO HS Arrhythmia 03/03/24
torsemide 20 mg tablet 60 mg PO DAILY Fluid retention/Swelling 03/03/24
warfarin 2.5 mg tablet 2.5 mg PO QPM Blood Clot Prevention/Tx 03/03/24
--- NOTE | 2024-03-05 13:26 | CON.CAR ---
Consultation
Consultation Request
Date/Time Consultation Requested: 03/05/24 11:00
Date/Time Consultation Performed: 03/05/24 15:30
Requesting Provider: Maurisio Mari
Performing Provider: Fernandez Crespo
Reason for Consultation: hypoxia
Medical History
-
Chief Complaint: Hypoxia
History of Present Illness:
68 yo female with PMH of chronic HFPEF, TAVR, A-fib on Coumadin, pulmonary hypertension, chronic hypoxic respiratory failure on 3 L home O2, COPD, untreated CHAS, morbid obesity who was brought in by her for restlessness and agitation.
Cardiology is consulted for hypoxia.
Core Oven Tender: Dr. Otero ([facility])
She initially presented to the emergency room on 03/03/2024 with mild confusion and restlessness. Her reports this had been going on for a few days. On admission she had a mildly elevated creatinine (1.2 from 0.7), lactate (2.8), and
hypokalemia. NT proBNP 3690. She required mid flow 10 L (home 3 L nasal cannula). She had been having urinary retention at home, so some of her presentation was thought to be due to volume overload in that setting. Her notes that between
her last hospital discharge on 01/23 and now she had gained 5 pounds. Her hot pond operator increased her torsemide from 40 mg to 60 mg about 2 weeks ago and she lost 2 pounds after that. Since coming to the hospital, she has continued to receive
torsemide 60 mg daily. Her weight today is 133 kg (unchanged from hospital discharge in January). I/O's are not accurate for this admission. Her creatinine is improving (1.2 -> 0.9). She is continuing to require mid flow with 10 L and she
continues to have agitation and restlessness. Chest x-ray today shows interval improvement in interstitial edema. CTA/P from 03/03/2024 shows a right hepatic lobe lesion for which MRI abdomen is recommended. Head CT showed an old stroke and a
meningioma, no acute findings. Brain MRI is pending.
Of note, she was recently hospitalized (01/18-01/23) for shortness of breath. During that admission she was diuresed 27 pounds and was found to have new onset atrial fibrillation for which she was started on digoxin and Eliquis.
ECHO 01/19/24- Hyperdynamic left ventricular systolic function. LV ejection fraction is 70- 75%. Mild mitral stenosis. s/p TAVR 29 mm Medtronic Evolut. Peak/mean gradients across the aortic valve are 8/5 mmHg. No aortic regurgitation. Enlarged right
ventricular size. Reduced right ventricular systolic function. Septal flattening in systole and diastole consistent with RV pressure and volume overload. Mild tricuspid regurgitation. Moderately elevated PASP. Estimated pulmonary artery pressure of
45-50 mmHg assuming a right atrial pressure of 15 mmHg. Compared to 05/01/22: RV dysfunction is now present. PASP was unable to be measured on prior study.
Past Medical History
Past Medical History: CHF, HTN, NIDDM, Valvular Disease and Other (restrictive airway disease, obesity, sleep apnea)
Social History
Tobacco: Former Smoker
Personal:
Living: With Family
Family History
Family History: Reviewed & Not Pertinent
Allergies / Home Medications
Allergy/AdvReac Type Severity Reaction Status Date / Time
amoxicillin trihydrate Allergy patient Verified 03/03/24 05:37
[From Augmentin] states
severe
nausea and
intestinal
pain
cat dander Allergy Sinus Verified 03/03/24 05:37
congestion
cigarette smoke Allergy Positive Verified 03/03/24 05:37
skin test
to tobacco
dog dander Allergy Sinus Verified 03/03/24 05:37
congestion
grass pollen Allergy Sinus Verified 03/03/24 05:37
congestion,
cough
levofloxacin [From Levaquin] Allergy GI Symptoms Verified 03/03/24 05:37
mold Allergy Sinus Verified 03/03/24 05:37
congestion,
cough
Sulfa (Sulfonamide Allergy INTESTINAL Verified 03/03/24 05:37
Antibiotics) PAIN
tree and shrub pollen Allergy Sinus Verified 03/03/24 05:37
congestion,
cough
�Medication �Instructions �Recorded �Confirmed �Type
amitriptyline 25 mg tablet 50 mg PO HS Mental Health/Anxiety 03/05/09 03/03/24 History
duloxetine 60 mg capsule,delayed 60 mg PO DAILY Mental 01/11/14 03/03/24 History
release Health/Anxiety
atorvastatin 10 mg tablet 10 mg PO QPM High cholesterol 02/10/22 03/03/24 History
glipizide 2.5 mg tablet, extended 2.5 mg PO BID Diabetes 02/10/22 03/03/24 History
release 24 hr
metformin 500 mg tablet 500 mg PO BID Diabetes 02/10/22 03/03/24 History
metoprolol succinate 50 mg 100 mg PO DAILY Blood pressure 02/10/22 03/03/24 History
tablet,extended release 24 hr
revefenacin 175 mcg/3 mL solution 175 mcg inhalation R DAILY 02/10/22 03/03/24 History
for nebulization (Yupelri) Lung/breathing issues
tramadol 50 mg tablet 50 mg PO DAILY Pain 02/10/22 03/03/24 History
arformoterol 15 mcg/2 mL solution 2 ml inhalation R BID 04/02/22 03/03/24 History
for nebulization (Brovana) Lung/breathing issues
budesonide 0.5 mg/2 mL suspension 0.5 mg inhalation R BID 04/02/22 03/03/24 History
for nebulization Lung/breathing issues
cyanocobalamin (vitamin B-12) 2,500 mcg sublingual DAILY 04/02/22 03/03/24 History
2,500 mcg sublingual tablet Supplement
(Vitamin B-12)
multivitamin 1 tab PO DAILY Supplement 04/02/22 03/03/24 History
calcium 500 mg (as 500 mg PO DAILY Supplement 04/08/22 03/03/24 History
carbonate)-vitamin D3 5 mcg (200
unit) tablet (Oyster Shell
Calcium-Vitamin D3)
biotin 10,000 mcg chewable tablet 10,000 mcg PO DAILY Supplement 01/19/24 03/03/24 History
(Hair, Skin and Nails (biotin))
albuterol sulfate 90 mcg/actuation 2 puff inhalation R Q6HPRN PRN sob 03/03/24 03/03/24 History
aerosol inhaler
digoxin 125 mcg (0.125 mg) tablet 125 mcg PO DAILY Heart 03/03/24 03/03/24 History
Disease/Condition
metoprolol succinate 50 mg 50 mg PO HS Arrhythmia 03/03/24 03/03/24 History
tablet,extended release 24 hr
torsemide 20 mg tablet 60 mg PO DAILY Fluid 03/03/24 03/03/24 History
retention/Swelling
warfarin 2.5 mg tablet 2.5 mg PO QPM Blood Clot 03/03/24 03/03/24 History
Prevention/Tx
Review of Systems
-
All other systems: Negative unless noted
Physical Exam
Vital Signs
Temp Pulse Resp BP Pulse Ox
97.9 F 91 16 89/77 96
03/05/24 05:59 03/05/24 11:27 03/05/24 11:27 03/05/24 04:21 03/05/24 11:27
Lab Results
03/05/24 04:14
03/05/24 04:14
Troponin I < 0.012 ng/ml 03/03/24 05:51
Ons-R-Pucffzctqvn Pept 3690 pg/ml 03/03/24 05:51
Physical Exam
General: Well Developed, Well Nourished and Other (Uncomfortable appearing, restless, not making sense)
Respiratory: Clear and Non Labored Respirations
Cardiac: S1/S2, Regular Rhythm and Peripheral Edema; Negative Murmur or Rub
Psych: Agitated
Impression / Plan
-
68 yo female with PMH of chronic HFPEF, TAVR, A-fib on Coumadin, pulmonary hypertension, chronic hypoxic respiratory failure on 3 L home O2, COPD, untreated CHAS, morbid obesity who was brought in by her for restlessness and agitation.
Cardiology is consulted for hypoxia.
Core Oven Tender: Dr. Otero ([facility])
Hypoxia
-Volume overload may be contributing but I do not think that it fully explains her hypoxia
-She is currently at her reported dry weight (133 kg) and creatinine is at baseline. BNP elevated.
-Would continue 60 mg torsemide daily and aim for gentle diuresis
-We will check an echocardiogram tomorrow
-I would not recommend right heart catheterization at this time because I have concerns that she would not be able to tolerate the procedure (she was unable to complete her MRI today because she was uncomfortable laying flat and agitated, has
required Risperdal this admission)
Acute on chronic HFpEF, pulmonary hypertension
-Diuresis as above
-Repeat echocardiogram tomorrow
-Can consider right heart catheterization pending clinical course
-SGLT2 inhibitors are cost prohibitive
Persistent atrial fibrillation on warfarin, present on admission
-INR subtherapeutic on admission
-Follow-up brain MRI
-Continue home digoxin 125 mcg daily, metoprolol 150 mg daily, and warfarin
Hypertension
-Blood pressures have been labile here
-Continue metoprolol
Change in mental status
-Continue workup per primary team
-Psychiatry and neurology on board
Aortic stenosis status post TAVR
-Gradients stable on last echocardiogram
Data Reviewed
-
EKG: Tracing Personally Visualized and interpreted
Radiology: Image Personally Visualized and interpreted and Discussed with Physician
CT Scan: Report Reviewed by me, Discussed with Patient and Discussed with Family
Medical Tests (Nuc Med, Echo etc): Report Reviewed by me and Discussed with Family
Labs: Labs Reviewed by me, Discussed with Patient and Discussed with Family
Old Records: Reviewed
[2024-03-05] MEDS: LIPITOR 10 MG PO ×2 (17:35)
[2024-03-05] MEDS: COUMADIN 3 MG PO (17:35)
--- NOTE | 2024-03-05 17:46 | PTCARENOTE ---
patient restless, forgetful, intermittent confusion. Earlier taking to MRI head and abdomen. patient unable to complete MRI due to increase anxiety and as she described 'panik attack ' . At this time pt OOB chair. good appetite call avitia within
reach. chair alarm
[2024-03-05 17:54] LABS: Glucose - Point of Care 135 mg/dl (70-99)
[2024-03-05] MEDS: RISPERDAL M-TAB (ORALLY DISINTEGRATING) 0.25 MG PO (18:35)
--- NOTE | 2024-03-05 19:18 | W.PN.UPDATE ---
Update Note
Progress Note Update
Pt seen & evaluated at bedside with present, chart reviewed. No benefit from propranolol, reported to be very anxious all night with minimal if any consistent sleep. Was unable to tolerate CPAP. As per , is intermittently confused and
not like her usual self. Some mild paranoia. No overt AVH reported but noted to talk to self a few times while I was present. Is oriented but reported to be disoriented & confused on & off throughout the day. Also is 'antsy', observed to be
restless, denies anxiety & says just feels 'antsy' and overwhelmed/confused.
Suspect worsening delirium in the context of oxygenation issues, which is likely the initial cause of presentation as well.
Discussed using risperidone short term to manage sxs as pt becoming increasingly more restless and paranoid - as per she intermittently wants to leave hospital and it appears that it is more difficult to redirect her as the day goes on. This
is also interfering with her using CPAP and sleeping, which further drives delirium.
Pt received risperidone 0.25mg in late afternoon which helped settle her briefly but dose was inadequate.
Risperidone 0.25mg AM + 0.75mg HS & 0.5mg BID PRN acute agitation --- short term use to manage what appears to be worsening delirium the sxs of which are significantly interfering with pts tx and placing her at further riskshould not continue
antipsychotic terminal supervisor
Stop propranolol
--- NOTE | 2024-03-05 20:00 | PTCARENOTE ---
received report 1844 pt resting in chair, arouses to verbal, pt oriented to self confused with time and place, knows she is in [place] but thinks shes in the basement, knows the month but not day and year, Afib on the monitor with PVC's, +
radials and pedals, +2 general anasarca, diminished throughout, MF 10L SATs 95%, PT seen by RT and refused BIPAP, round obese BSx4, BRPx1 yellow urine, bruising on UE's, MASB in groin Desenex applied, 20G RA, 22G RAC, 20G L wrist, call avitia within
reach, pt being monitored by medsitter, otherwise refer to documentation
[2024-03-05 21:15] LABS: Glucose - Point of Care 156 mg/dl (70-99)
[2024-03-05] MEDS: RISPERDAL 0.75 MG PO (22:10)
[2024-03-05] MEDS: TOPROL XL 50 MG PO (22:10)
[2024-03-06] VITALS (10 sets, daily range): BP systolic 99–130; BP diastolic 66–86; BMI 47.1
[2024-03-06 04:02] LABS: PT 24.3 Sec (11.4-14.6)
[2024-03-06 04:16] LABS: % Basophils 0.8 % (0-2); % Eosinophils 3.5 % (0-6); % Immature Granulocytes 0.4 % (0-0.5); % Lymphocytes 29.8 % (20.5-51.1); % Monocytes 10.7 % (1.7-9.3); % Neutrophils 54.8 % (42.2-75.2); Absolute Basophils 0.1 10^3/uL (0-0.2); Absolute Eosinophils 0.3 10^3/uL (0-0.7); Absolute Lymphocytes 2.3 10^3/uL (1.2-3.4); Absolute Monocytes 0.8 10^3/uL (0.1-0.6); Absolute Neutrophils 4.2 10^3/uL (1.4-6.5); Hematocrit 44.6 % (37.0-47.0); Mean Corp Hgb Conc. 33.6 g/dL (33.0-37.0); Mean Corpuscular Hgb 32.3 pg (27.0-31.0); Mean Corpuscular Volume 95.9 fL (81.0-99.0); Nucleated Red Blood Cells % 0 %; Platelet Count 186 10^3/uL (130-400); Red Blood Cell Count 4.65 10^6/uL (4.20-5.40); Red Cell Dist. Width 17.1 % (11.5-14.5); White Blood Cell Count 7.7 10^3/uL (4.8-10.8)
[2024-03-06 04:27] LABS: ALT (SGPT) 29 U/L (0-35); AST (SGOT) 33 U/L (14-36); Albumin 3.6 g/dl (3.5-5.0); Alkaline Phosphatase 141 U/L (38-126); Blood Urea Nitrogen 26 mg/dl (7-17); Calcium 8.6 mg/dl (8.4-10.2); Carbon Dioxide 37 mmol/L (22-30); Chloride 99 mmol/L (98-107); Estimated Creatinine Clearance 91 ml/min; Glucose 127 mg/dl (70-99); Potassium 3.1 mmol/L (3.5-5.1); Sodium 146 mmol/L (135-145); Total Bilirubin 1.6 mg/dl (0.2-1.3); Total Protein 6.7 g/dl (6.3-8.2); eGFR > 60.00
[2024-03-06] MEDS: KCL 40 MEQ PO ×2 (05:01→22:41)
--- NOTE | 2024-03-06 05:03 | PTCARENOTE ---
K 3.1 from morning labs, HORACIO Mejias notified, K given per order
[2024-03-06] MEDS: PULMICORT 0.5 MG INH ×2 (07:28→19:47)
[2024-03-06] MEDS: VENTOLIN NEBULES 2.5 MG INH ×4 (07:28→19:48)
[2024-03-06] MEDS: SPIRIVA RESPIMAT 2.5 MCG 2 PUFF INH (07:28)
--- NOTE | 2024-03-06 07:54 | W.PN.CD ---
Today's Communication / Plan
-
continue diuresis
replete k
echo
Impression / Plan
-
68 yo female with PMH of chronic HFPEF, TAVR, A-fib on Coumadin, pulmonary hypertension, chronic hypoxic respiratory failure on 3 L home O2, COPD, untreated CHAS, morbid obesity who was brought in by her for restlessness and agitation.
Cardiology is consulted for hypoxia.
Bottle Filler: Dr. Otero ([facility])
Hypoxia
- She is on O2 3L/min at home. Currently on 6L/min with O2 sat 95%. May be able to wean some
-Volume overload likely- she feels better and CXR improving.
-She is currently at her reported dry weight (291 lb) and creatinine is at baseline. BNP elevated.
-Would continue 60 mg torsemide daily and aim for continued gentle diuresis
-We will check an echocardiogram today
Hypokalemia
-Replete with goal K >4.0
Acute on chronic HFpEF, pulmonary hypertension
-Diuresis as above
-Repeat echocardiogram today
-SGLT2 inhibitors are cost prohibitive
Persistent atrial fibrillation on warfarin, present on admission
-INR subtherapeutic on admission
-Follow-up brain MRI showed old meningioma but no CVA
-Continue home digoxin 125 mcg daily, metoprolol 150 mg daily, and warfarin- goal INR 2-3
Hypertension
-Normotensive
-Continue metoprolol
Change in mental status
-Resolved
-Psychiatry and neurology on board
Aortic stenosis status post TAVR
-Gradients stable on last echocardiogram
Outpt carbon blocks press operator is Dr Lolis Otero ([facility])
Physical Exam
Vital Signs/Labs
Vital Signs
Temp Pulse Resp BP Pulse Ox
98.2 F 94 18 109/86 94
03/06/24 07:48 03/06/24 07:34 03/06/24 07:34 03/06/24 06:01 03/06/24 07:34
03/05/24 03/06/24 03/07/24
06:59 06:59 06:59
Actual Weight 291 lb 7.218 oz
03/06/24 03:32
03/06/24 03:32
PT 24.3 Sec (11.4-14.6) H 03/06/24 03:32
INR 2.20 03/06/24 03:32
APTT 31.3 Sec (23.4-35.0) 03/03/24 15:54
Magnesium 2.2 mg/dl (1.6-2.3) 03/04/24 05:01
Free T4 1.52 ng/dl (0.78-2.19) 03/03/24 05:51
Digoxin 0.7 ng/ml (0.8-2.0) L 03/03/24 05:51
03/03/24
05:51
Tqx-U-Kzernczbjgh Pept 3690
Physical Exam
Constitutional: No acute distress and Comfortable
EENT: Anicteric
Cardiovascular: Rhythm/rate is irregular, Systolic murmur present (1-2/6 systolic murmur ) and S1S2 is normal
Respiratory: Respiratory effort normal, Wheeze Absent and Crackles Absent
GI: Non tender
Neuro/Psych: AO x 3 and Motor deficits absent
Data Reviewed
-
Date of Service: March 06, 2024
--- NOTE | 2024-03-06 08:00 | PTCARENOTE ---
Received patient from extractor plant operator. Patient is AAOX4, aware that she has had intermittent confusion this admission. is appropriate, pleasant. She is on 8L midflow, saturation in low 90s. Feels no discomfort or shortness of breath. She is in Afib
on monitor. has some generalized swelling. She is ordered a 2000 remigio diet, ordered breakfast and is using the bathroom appropriately. patient is IMU status. Will review orders. can make needs known, call avitia within reach.
--- NOTE | 2024-03-06 08:34 | VNURNOTE ---
Chart reviewed. Patient is current with [facility] nursing. Will continue to follow hospital course and DC plans.
[2024-03-06 08:36] LABS: Glucose - Point of Care 114 mg/dl (70-99)
[2024-03-06] MEDS: NOVOLOG FLEXPEN-MODERATE RESISTANCE SC ×2 (08:42→18:06)
[2024-03-06] MEDS: CYMBALTA DELAYED RELEASE 60 MG PO (08:43)
[2024-03-06] MEDS: TOPROL XL 100 MG PO (08:43)
[2024-03-06] MEDS: DESENEX/MITRAZOL/ZEASORB 1 APPLIC TOPICAL ×2 (08:43→22:41)
[2024-03-06] MEDS: RISPERDAL 0.25 MG PO (08:43)
[2024-03-06] MEDS: DEMADEX 60 MG PO (08:43)
[2024-03-06] MEDS: LANOXIN 125 MCG PO (08:49)
--- NOTE | 2024-03-06 09:32 | W.PN.HOSP.TC ---
Today's Communication/Plan
-
Continue diuresis
Continue to try to wean oxygen
Assessment / Plan
Assessment / Plan
Physical Exam
General: No Apparent Distress and Obese
Respiratory: Clear to Auscultation
Cardiac: Regular Rhythm
GI: Soft, Nontender and Nondistended. Positive bowel sounds.
Musculoskeletal: No Cyanosis and No Edema
Skin: Warm
Psych: Calm
Assessment/Plan
68yo F with PMHx of COPD, HTN, HLD, anxiety, CHAS intollerant to CPAP, s/p TAVR, Afib on coumadin, pulmonary HTN, chronic hypoxic respiratory failure on 3L home O2, HFpEF brought by her with mild agitation and irresistible ordonez to move
started this AM. Patient also c/o vague abdominal discomfort on arrival, however later during this admission it completely resolved. Could not exclude serotonin syndrome with recent change of Amitriptyline to trazodone
68 y/o female presented with complaints of AMS and akathysia, concerned for serotonin syndrome, so serotonergic medications were stopped. Also worsening hypoxia - had multitude reasons for it.
#Akathisia with mild confusion, concern for early toxic metabolic encephalopathy with possible UTI
Anxiety d/o
CT head showed hemangioma
Neurology and Psych consult
MRI brain
hold Amitriptyline, duloxetine, tramadol
Bcx NTD, UA unremarkable for infection, XR without pneumonia - reasonable to stop Abx
Speech screening by RN
Continue Thiamine
#Acute on chronic hypoxic hypercapnic respiratory failure, most likely 2/2 agitation and tachypnea
#COPD, no clear exacerbation since no wheezing
#Acute on Chronic HFpEF
#CHAS not tolerant of CPAP
#Pulmonary HTN 2/2 COPD
Pulm consult, cont O2, cont bronchodilators
Per cardiology, Echo on 03/06/24 suggested PA pressures are higher than one month ago. Patient's RV is still significantly dilated and significantly hypokinetic. LVED EP was only 17 in January 2022. Perhaps RV failure and pulmonary hypertension has
another etiology beyond left heart failure -- discussed with pulmonary, suspected to be from CHAS/OHS
However, continue gentle diuresis with Torsemide -- patient is responding clinically
#Abdominal Pain
CTA in ED done, but poor quality 2/2 movements
No gross abnormality
Lipase WNL
#Hypernatremia
#Hypokalemia
#Elevated Cr without AIYANA
Check Magnesium
Recheck BMP
Consulted nephrology, appreciate their evaluation and recommendations: limited D5W IV fluids and potassium replacement
#Elevated lactate without acidosis
possibly 2/2 hypoxia and metformin with mild dehydration
follow lactate
#Subtherapeutic INR
#AFib, persistent
recently with INR>7 as oper , so Coumadin held for three days, restarted on Wednesday
Cont coumadin and follow INR, slowly increase dose.
Reasonable for
telemetery
Digoxin level WNL, cont digoxin
Continue home digoxin 125 mcg daily, metoprolol 150 mg daily, and warfarin- goal INR 2-3
#chronic erythrocytosis 2/2 CHAS and most likely chronic hypoxia
follow CBC
#DM type 2 with neuropathy
Accuchecks, Insulin SS, DM diet, check HgbA1c
cont Glipizide
#HTN
-Continue metoprolol
#HLD
cont meds
#Obesity
BMI 48.2
advise to decrease calorie intake
#Chronic elevation of alk.phos
#Elevated bilirubin
seen in Sept
follow trend
hepatitis panel neg
follow LFT
US RUQ with normal CBD, no sonographic signs of cholecystitis
LDH mildly elevated without anemia
#Liver lesion
MRI indicated
#Subclinical hyperthyroidism vs euthyroid sick syndrome
FT4, FT3 WNL
DVT ppx on Coumadin
FUll code as per discussion with and patient bedside
Anticipated Discharge: > 48 hours
Subjective/Interval History
-
Date of Service: March 06, 2024
Patient was seen and examined. She reported overall feeling okay, she denied chest pain, SOB or any other symptoms or complaints.
Objective Data
-
Labs:
Laboratory Results
03/06/24
03:32
WBC 7.7
Hgb 15.0
Hct 44.6
Plt Count 186
PT 24.3 H
INR 2.20
Sodium 146 H
Potassium 3.1 L
Chloride 99
Carbon Dioxide 37 H
BUN 26 H
Creatinine 0.8
Glucose 127 H
Calcium 8.6
Total Bilirubin 1.6 H
AST 33
ALT 29
Alkaline Phosphatase 141 H
Vital Signs:
Vital Signs
Temp Pulse Resp BP Pulse Ox
98.2 F 87 14 111/70 95
03/06/24 07:48 03/06/24 08:49 03/06/24 08:00 03/06/24 08:43 03/06/24 08:57
I&O
03/05/24 03/06/24 03/07/24
06:59 06:59 06:59
Intake Total 960 / 960 450 / 450
Output Total 500 / 500
Balance 460 / 460 450 / 450
--- NOTE | 2024-03-06 09:58 | W.CON.NEPH ---
Consultation
-
Date/Time Consultation Requested: 03/06/2024 10:00 AM
Date/Time Consultation Performed: 03/06/2024 10:00 AM
Requesting Provider: Dr. Aggarwal
Performing Provider: Dr. Figueroa
Reason for Consultation: Hypernatremia/hypokalemia
Medical History
-
Chief Complaint: Hypernatremia hypokalemia
History of Present Illness:
The patient is a 68-year-old female with a past medical history of congestive heart failure maintained chronically on torsemide therapy. She is maintained on metoprolol for her hypertension. She has a history of diabetes and is maintained on
glipizide and metformin. Patient has hx of COPD, HLD, anxiety, CHAS intollerant to CPAP, s/p TAVR, Afib on coumadin, pulmonary HTN, chronic hypoxic respiratory failure on 3L home O2, HFpEF brought by her with mild agitation and
irresistible ordonez to move started this AM. Patient also c/o vague abdominal discomfort on arrival, however later during this admission it completely resolved. Mild elevation of Cr and hypokalemia with mild elevation of lactate noted. Also was having
urge to urinate, however with the straight cath - minimal amount of urine. Medication managed by . She was admitted to the hospital with congestive heart failure decompensation and we were consulted for evolving hyponatremia with a sodium of
146 and hypokalemia with a potassium of 3.1.
Past Medical History
Congestive heart failure
TAVR
Oxygen dependent COPD
A-fib on chronic anticoagulation
Pulmonary hypertension
Obstructive sleep
Anxiety
Diabetes
Social History
Tobacco: Former Smoker
Alcohol: None
Family History
No chronic kidney disease
Allergies / Home Medications
Allergy/AdvReac Type Severity Reaction Status Date / Time
amoxicillin trihydrate Allergy patient Verified 03/03/24 05:37
[From Augmentin] states
severe
nausea and
intestinal
pain
cat dander Allergy Sinus Verified 03/03/24 05:37
congestion
cigarette smoke Allergy Positive Verified 03/03/24 05:37
skin test
to tobacco
dog dander Allergy Sinus Verified 03/03/24 05:37
congestion
grass pollen Allergy Sinus Verified 03/03/24 05:37
congestion,
cough
levofloxacin [From Levaquin] Allergy GI Symptoms Verified 03/03/24 05:37
mold Allergy Sinus Verified 03/03/24 05:37
congestion,
cough
Sulfa (Sulfonamide Allergy INTESTINAL Verified 03/03/24 05:37
Antibiotics) PAIN
tree and shrub pollen Allergy Sinus Verified 03/03/24 05:37
congestion,
cough
�Medication �Instructions �Recorded �Confirmed �Type
amitriptyline 25 mg tablet 50 mg PO HS Mental Health/Anxiety 03/05/09 03/03/24 History
duloxetine 60 mg capsule,delayed 60 mg PO DAILY Mental 01/11/14 03/03/24 History
release Health/Anxiety
atorvastatin 10 mg tablet 10 mg PO QPM High cholesterol 02/10/22 03/03/24 History
glipizide 2.5 mg tablet, extended 2.5 mg PO BID Diabetes 02/10/22 03/03/24 History
release 24 hr
metformin 500 mg tablet 500 mg PO BID Diabetes 02/10/22 03/03/24 History
metoprolol succinate 50 mg 100 mg PO DAILY Blood pressure 02/10/22 03/03/24 History
tablet,extended release 24 hr
revefenacin 175 mcg/3 mL solution 175 mcg inhalation R DAILY 02/10/22 03/03/24 History
for nebulization (Yupelri) Lung/breathing issues
tramadol 50 mg tablet 50 mg PO DAILY Pain 02/10/22 03/03/24 History
arformoterol 15 mcg/2 mL solution 2 ml inhalation R BID 04/02/22 03/03/24 History
for nebulization (Brovana) Lung/breathing issues
budesonide 0.5 mg/2 mL suspension 0.5 mg inhalation R BID 04/02/22 03/03/24 History
for nebulization Lung/breathing issues
cyanocobalamin (vitamin B-12) 2,500 mcg sublingual DAILY 04/02/22 03/03/24 History
2,500 mcg sublingual tablet Supplement
(Vitamin B-12)
multivitamin 1 tab PO DAILY Supplement 04/02/22 03/03/24 History
calcium 500 mg (as 500 mg PO DAILY Supplement 04/08/22 03/03/24 History
carbonate)-vitamin D3 5 mcg (200
unit) tablet (Oyster Shell
Calcium-Vitamin D3)
biotin 10,000 mcg chewable tablet 10,000 mcg PO DAILY Supplement 01/19/24 03/03/24 History
(Hair, Skin and Nails (biotin))
albuterol sulfate 90 mcg/actuation 2 puff inhalation R Q6HPRN PRN sob 03/03/24 03/03/24 History
aerosol inhaler
digoxin 125 mcg (0.125 mg) tablet 125 mcg PO DAILY Heart 03/03/24 03/03/24 History
Disease/Condition
metoprolol succinate 50 mg 50 mg PO HS Arrhythmia 03/03/24 03/03/24 History
tablet,extended release 24 hr
torsemide 20 mg tablet 60 mg PO DAILY Fluid 03/03/24 03/03/24 History
retention/Swelling
warfarin 2.5 mg tablet 2.5 mg PO QPM Blood Clot 03/03/24 03/03/24 History
Prevention/Tx
Review of Systems
-
History Source: Patient
All other systems: Negative unless noted
Respiratory: Trouble Breathing (on chronic O2 now 6 L)
Neurological: Other
Physical Exam
Vital Signs
Vital Signs
Temp Pulse Resp BP Pulse Ox
98.2 F 87 14 111/70 95
03/06/24 07:48 03/06/24 08:49 03/06/24 08:00 03/06/24 08:43 03/06/24 08:57
Lab Results
03/06/24 03:32
03/06/24 03:32
WBC 7.7 10^3/uL (4.8-10.8) 03/06/24 03:32
RBC 4.65 10^6/uL (4.20-5.40) 03/06/24 03:32
Hgb 15.0 g/dL (12.0-16.0) 03/06/24 03:32
Hct 44.6 % (37.0-47.0) 03/06/24 03:32
Plt Count 186 10^3/uL (130-400) 03/06/24 03:32
Sodium 146 mmol/L (135-145) H 03/06/24 03:32
Potassium 3.1 mmol/L (3.5-5.1) L 03/06/24 03:32
Chloride 99 mmol/L (98-107) 03/06/24 03:32
Carbon Dioxide 37 mmol/L (22-30) H 03/06/24 03:32
BUN 26 mg/dl (7-17) H 03/06/24 03:32
Creatinine 0.8 mg/dL (0.6-1.0) 03/06/24 03:32
eGFR > 60.00 03/06/24 03:32
Glucose 127 mg/dl (70-99) H 03/06/24 03:32
Calcium 8.6 mg/dl (8.4-10.2) 03/06/24 03:32
Hac-U-Cjviowswyli Pept 3690 pg/ml 03/03/24 05:51
Albumin 3.6 g/dl (3.5-5.0) 03/06/24 03:32
Physical Exam
General: AOx3, Nontoxic , NAD.obese
HEENT: PERRL, EOMI, Anicteric, NC O2, Conjunctivae Clear, Ear/Nose Intact, Hearing Normal, Oropharynx Clear/Moist, Dentition Intact, Facial Symmetry, Neck Supple, Neck: Trachea Midline, No JVD and No Thyromegaly, no Bruits
Respiratory: coarse to auscultation bilaterally with normal lung excursion
Cardiac: S1/S2 irregular rate/Rhythm
Breast: Deferred by me
Abdomen: Soft, Nontender, Nondistended, Normal Bowel Sounds and No Hepatosplenomegaly
Rectal: Deferred by Provider
Genito-urinary: No Costovertebral Tenderness
Extremities: No Clubbing, No Cyanosis and No pitting Edema
Skin: No Rash or open lesions
Neuro: Nonfocal/Grossly Intact, CN II-XII (Intact) and Strength (Musculoskeletal exam 5 out of 5 both upper and lower extremities)
Hematologic/Lymphatic: No Cervical Lymphadenopathy, No Submandibular Lymphadenopathy and No Supraclavicular Lymphadenopathy
Psych: Mood/afflect pleasant, Insight/judgement good and Appropriate
Vascular: plus 1 pedal and radial pulses
Data Reviewed
-
Radiology: Image Personally Visualized and interpreted (Chest x-ray from 03/05/2024 personally reviewed no overt congestive heart failure or pneumonic process)
MRI: Report Reviewed by me (No hyperacute or early subacute infarction right temporal occipital encephalomalacia)
Labs: Labs Reviewed by me (BMP CBC)
Old Records: Reviewed (Reviewed old labs from 02/25/2024 sodium 140 potassium 3)
Assessment/Plan
-
Impression:
Change of Mental Status
Congestive heart failure exacerbation
Hypernatremia
Urinary retention requiring catheterization
Hypokalemia
Akathisia with mild confusion, concern for early toxic metabolic encephalopathy with possible UTI
Anxiety d/o
Hypertension
Atrial fibrillation
COPD on chronic oxygen
Pulmonary hypertension
Diabetes
History of aortic stenosis status post TAVR
History of CVA (Right [employer] SAL[employer])
Plan:
Hypernatremia;
-Calculated free water deficit 2.8 L
-Evolving free water deficit following diuresis (weights down 3kg)
-will start D5W at 80cc/hr just for 500cc
-liberalize fluid intake
-Okay to maintain diuresis, uop not recorded
-Replete potassium
--- NOTE | 2024-03-06 10:00 | W.PN.PUL3 ---
Today's Communication / Plan
-
Gentle diuresis
Echocardiogram today
Incentive spirometry
Continue nebulizer therapy
Increase activity as able
Continue to wean down oxygen to her baseline of 3 L
At patient request will add VEST therapy, as she reports difficulty expectorating and she has 1 at home.
Assessment
-
Patient is a 68 year old F with PMHx of COPD, HTN, HLD, anxiety, CHAS intolerant to CPAP, s/p TAVR, Afib on coumadin, pulmonary HTN, chronic hypoxic respiratory failure on 3L home O2, HFpEF brought by her with mild agitation and
restlessness. On arrival to ER, there is noted mild elevation of creatinine, lactate and hypokalemia. Patient has been having urinary retention as well, notes she was doing well on diuretics but then stopped voiding in the past few days
despite increased dose. proBNP 3690, CXR unchanged compared to prior. We are consulted for eval.
Acute respiratory failure with hypoxia
Acute HFpEF exacerbation, proBNP 3690
Change in MS, restlessness- resolved
Medical noncompliance
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
Reported history of COPD/asthma, follows with Russ Smith
Atrial flutter with RVR (new onset)
Mild�moderate pulmonary hypertension with PASP 45�50 assuming an RAP of 15 mmHg
Severe CHAS intolerant to CPAP (per patient) with secondary polycythemia (initial Hb 18.5 on 01/19/2024)
Suspected OHS
Morbid obesity, BMI 48
Hypertension
Hyperlipidemia
DM type II
Aortic stenosis s/p TAVR
Anxiety
History of CVA
Former tobacco smoker (quit 1999)
Plan:
Patient is a 68 year old F with PMHx of COPD, HTN, HLD, anxiety, CHAS intolerant to CPAP, s/p TAVR, Afib on coumadin, pulmonary HTN, chronic hypoxic respiratory failure on 3L home O2, HFpEF brought by her with mild agitation and
restlessness. On arrival to ER, there is noted mild elevation of creatinine, lactate and hypokalemia. Patient has been having urinary retention as well, notes she was doing well on diuretics but then stopped voiding in the past few days
despite increased dose. proBNP 3690, CXR unchanged compared to prior. We are consulted for eval.
Acute respiratory failure with hypoxia
Requiring 10 to 15 L, improved
Acute HFpEF exacerbation, proBNP 3690
Urinary retention
Change in MS, restlessness
Medical noncompliance
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
Reported history of COPD/asthma, follows with Russ Smith
Atrial flutter with RVR (new onset)
Mild�moderate pulmonary hypertension with PASP 45�50 assuming an RAP of 15 mmHg
Severe CHAS intolerant to CPAP (per patient) with secondary polycythemia (initial Hb 18.5 on 01/19/2024)
Suspected OHS
Morbid obesity, BMI 48
Hypertension
Hyperlipidemia
DM type II
Aortic stenosis s/p TAVR
Anxiety
History of CVA
Former tobacco smoker (quit 1999)
Plan:
At this time, patient appears to be objectively and subjectively improved.
Oxygenation improving down to 7 L. Pulse ox 96%.
Home use of 3L NC, can wean back to baseline
She has declined noninvasive mechanical ventilator.
Lung exam is relatively clear.
CHF/Obesity/atelectasis likely contributing
-
Echo 01/19/2024, EF 75%, status post TAVR, enlarged RV size with reduced function, septal flattening consistent with RV pressure and volume overload, PA pressure 50
HF exacerbation due to urinary retention
ProBNP >3000
Continue diuresis.
Continue gentle diuresis
Cardiology correspondence reviewed.
Repeat echocardiogram today.
As clinically improving, holding on right heart catheterization.
-
Follow daily weights
-
Patient has severe CHAS intolerant to CPAP
She is aware of the risks of CPAP noncompliance with CHAS including risk of arrhythmia, cardiovascular disease, hypertension, pulmonary hypertension, and worsening quality of life
She also likely has obesity hypoventilation syndrome which carries an even greater risk of pulmonary hypertension compared to CHAS
ABG on last admission shows mild acute respiratory acidosis with pH 7.33 and pCO2 47 - nocturnal CPAP/BiPAP is recommended
I discussed this with her today and they are willing to try PAP, will order BIPAP
He notes she had been scheduled for split study and when attempted she declined during test due to intolerance
This mostly certainly could be contributing to mental status issues
Medical noncompliance is an issue
She will need to follow-up with her sleep physician
If she is unable to follow-up, she is welcome to follow-up at our practice
COPD/asthma: Not bronchospastic on exam.
Continue nebulized therapy-budesonide/albuterol as well as Spiriva while in the hospital
-
Yupelri/AFormoterol/budesonide in the outpatient setting
No indication for systemic corticosteroid
Patient reports difficulty expectorating: She has percussion therapy at home. Will order vest therapy twice a day.
Incentive spirometry also will be ordered
Increase activity as tolerated likely will improve with oxygenation as well.
Change in MS, back to baseline. Resolved.
History of CVA, CT head showing meningioma
Psychiatry also noted. Unclear whether she may have presented with serotonin syndrome
DVT prophylaxis-on warfarin, INR now greater than 2
She ultimately will follow-up with her private sugar mixer, Dr. Smith.
If she wishes to transition to us at [facility] we will facilitate
Reviewed with critical care nursing

Diagnostic Data
CXR 01/19/24- Mild pulmonary edema. No definite pleural effusion.
CTA Chest 01/19/2024: No evidence of pulmonary embolism or active pulmonary process. Bilateral hilar lymphadenopathy. It is difficult to evaluate for hilar lymphadenopathy on the previous CT from 09/09/2022 given the absence of intravenous contrast on
this exam. Mediastinal lymphadenopathy is unchanged. Dilated pulmonary arterial system which can be seen in the setting of pulmonary arterial hypertension.
CT Head 03/03/24- 1). There are no acute intracranial abnormalities
2). Old 6.5 cm right occipital infarct
3). 2.8 cm meningioma over the anterolateral right parietal convexity
ECHO 01/19/24- Hyperdynamic left ventricular systolic function. LV ejection fraction is 70- 75%. Mild mitral stenosis. s/p TAVR 29 mm Medtronic Evolut. Peak/mean gradients across the aortic valve are 8/5 mmHg. No aortic regurgitation. Enlarged right
ventricular size. Reduced right ventricular systolic function. Septal flattening in systole and diastole consistent with RV pressure and volume overload. Mild tricuspid regurgitation. Moderately elevated PASP. Estimated pulmonary artery pressure of
45-50 mmHg assuming a right atrial pressure of 15 mmHg. Compared to 05/01/22: RV dysfunction is now present. PASP was unable to be measured on prior study.
Reports and relevant images were personally reviewed.
Subjective Data
-
Date of Service:
Date of Service: March 06, 2024
Chief Complaint: Pulmonary Follow Up (Hypoxemic respiratory failure)
Subjective:
Patient clinically feels better.
Denies wheezing.
Chronically she has cough with difficulty expectorating. States that she has a vest at home.
Review of Systems
General: Fever (n)
Cardiopulmonary: Dyspnea (improved)
GI: Abdominal Pain (n), Nausea (n) and Vomiting (n)
Objective Data
Data Reviewed
Vital Signs / I&O / Oxygen:
Vital Signs
Temp Pulse Resp BP Pulse Ox
98.2 F 87 14 111/70 95
03/06/24 07:48 03/06/24 08:49 03/06/24 08:00 03/06/24 08:43 03/06/24 08:57
Intake and Output
03/05/24 03/06/24 03/07/24
06:59 06:59 06:59
Intake Total 960 / 960 450 / 450
Output Total 500 / 500
Balance 460 / 460 450 / 450
SaO2 95
Nasal Cannula flow liters per 10
minute
Physical Exam
General: Comfortable and Other (Able to speak in full sentences)
HEENT: Normocephalic
Cardiovascular: S1-S2
Respiratory: Clear and Non-Labored Respirations
GI: Soft and Distended (Obese)
Neurology: Awake, Alert, AO x 3 and No Motor Deficits
Skin: Good Color
Labs/Micro/Reports
Lab Data
03/06/24 03:32
03/06/24 03:32
Laboratory Results
03/06/24
03:32
PT 24.3 H
INR 2.20
Microbiology
03/03/24 09:13 Blood/Venous Blood Culture - Preliminary
No Growth in 72 hours- Final report to follow
03/03/24 09:13 Blood/Venous Blood Culture - Preliminary
No Growth in 72 hours- Final report to follow
03/03/24 15:54 Nose MRSA Screen - Final
No Methicillin Resistant Staphylococcus aureus isolated.
03/03/24 09:13 Nasal Swab Influenza Types A & B ([facility]) - Final
Negative for Influenza A & B, NAAT
Negative results must be combined with clinical observations
and patient history.
Nucleic Acid Amplification test (NAAT)performed on the
[employer] platform.
[2024-03-06] MEDS: KCL 510 MEQ IV (11:25)
--- NOTE | 2024-03-06 11:52 | W.PN.NEURO.1 ---
Today's Communication / Plan
-
Avoid sedative medications if at all possible
Provide thiamine
No indication for high-dose steroids at this time as there is no significant edema or mass effect secondary to the known right parietal meningioma
Neuro Assessment/Plan
Assessment
I. Multifactorial encephalopathy most likely a combination of toxic metabolic, sleep deprivation due to inadequate control over obstructive sleep apnea
II. Right parietal convexity meningioma; I disagree with the formal reading by radiology which suggests that there is significant mass effect. I do not see that present
III. 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
IV. PA-AFib, subtherapeutic INR on admission
Plan
Avoid sedative medications if at all possible
Provide thiamine
No indication for high-dose steroids at this time as there is no significant edema or mass effect secondary to the known right parietal meningioma
Will follow peripherally. Please contact us if there fails to be significant improvement in the patient's cognition.
Subjective/Objective
Subjective Data
Date of Service: March 06, 2024
Objective Data
Vital Signs
Temp Pulse Resp BP Pulse Ox
36.8 C 83 16 111/70 96
03/06/24 07:48 03/06/24 11:23 03/06/24 11:23 03/06/24 08:43 03/06/24 11:23
Lab Results
03/06/24 03:32
03/06/24 03:32
PT 24.3 Sec (11.4-14.6) H 03/06/24 03:32
INR 2.20 03/06/24 03:32
APTT 31.3 Sec (23.4-35.0) 03/03/24 15:54
Sodium 146 mmol/L (135-145) H 03/06/24 03:32
Potassium 3.1 mmol/L (3.5-5.1) L 03/06/24 03:32
BUN 26 mg/dl (7-17) H 03/06/24 03:32
Glucose 127 mg/dl (70-99) H 03/06/24 03:32
Calcium 8.6 mg/dl (8.4-10.2) 03/06/24 03:32
Uac-L-Gymrufcqziv Pept 3690 pg/ml 03/03/24 05:51
Ur Buprenorphine Negative (Negative) 03/03/24 10:39
Patient Allergies
amoxicillin trihydrate [From Augmentin] Allergy (Verified 03/03/24 05:37)
patient states severe nausea and intestinal pain
cat dander Allergy (Verified 03/03/24 05:37)
Sinus congestion
cigarette smoke Allergy (Verified 03/03/24 05:37)
Positive skin test to tobacco
dog dander Allergy (Verified 03/03/24 05:37)
Sinus congestion
grass pollen Allergy (Verified 03/03/24 05:37)
Sinus congestion, cough
levofloxacin [From Levaquin] Allergy (Verified 03/03/24 05:37)
GI Symptoms
mold Allergy (Verified 03/03/24 05:37)
Sinus congestion, cough
Sulfa (Sulfonamide Antibiotics) Allergy (Verified 03/03/24 05:37)
INTESTINAL PAIN
tree and shrub pollen Allergy (Verified 03/03/24 05:37)
Sinus congestion, cough
Data Reviewed
-
MRI Head: Report Reviewed and Image Reviewed
Labs: Report Reviewed
Reviewed with: Physician
Old Records: Summarized
Past History
Past History
ED Past Medical History: Arrthythmia (Atrial fibrillation), Asthma, CHF, COPD, CVA (Right [employer] stroke), GERD, HTN, Hypercholesterolemia, NIDDM, Valvular disease, Psychiatric (Generalized anxiety disorder) and Other (Obstructive sleep apnea, morbid
obesity, right parietal meningioma)
ED Past Surgical History: Cardiac (Have our) and Orthopedic
Social History
Tobacco: Non-smoker
Alcohol: Occasional
Drug: None
Personal:
Living: with family
Family History
Family History: Other (Reviewed and noncontributory)
Medications
-
Medications:
Generic Name Dose Route Start Last Admin
Trade Name Freq PRN Reason Stop Dose Admin
Acetaminophen 650 mg 03/03/24 12:07
Acetaminophen 325 Mg Tablet PO 03/31/24 12:06
Q4HPRN PRN
mild pain/ROOT/temp> 100.4F
Albuterol 2 puff 03/03/24 12:07
Albuterol Hfa [90 Mcg/Dose] Inhaler INH
R Q6HPRN PRN
sob
Protocol
Albuterol Sulfate 2.5 mg 03/03/24 16:00 03/06/24 11:18
Albuterol Nebs 2.5 Mg/3 Ml Ampul INH 2.5 mg
R QID MARION Administration
Protocol
Atorvastatin Calcium 10 mg 03/03/24 18:00 03/05/24 17:35
Atorvastatin (Lipitor) 10 Mg Tablet PO 03/31/24 17:59 10 mg
QPM MARION Administration
Bisacodyl 10 mg 03/03/24 12:07
Bisacodyl 10 Mg Rectal Suppository RECTAL 03/31/24 12:06
[id number] PRN
constipation
Budesonide 0.5 mg 03/03/24 20:00 03/06/24 07:28
Budesonide (Pulmicort Respules) 0.5 Mg/2 Ml INH 0.5 mg
R BID MARION Administration
Protocol
Dextrose 12.5 grams 03/03/24 12:07
Dextrose 50% (0.5 Grams/Ml) 50 Ml Syringe IV 03/31/24 12:06
[id number] PRN
hypoglycemia
Protocol
Digoxin 125 mcg 03/04/24 08:00 03/06/24 08:49
Digoxin 125 Mcg Tablet PO 04/01/24 07:59 125 mcg
DAILY MARION Administration
Duloxetine HCl 60 mg 03/05/24 09:00 03/06/24 08:43
Duloxetine Delayed Release 60 Mg Capsule PO 04/02/24 08:59 60 mg
DAILY MARION Administration
Glucagon 1 mg 03/03/24 12:07
Glucagon 1 Mg Vial IM 03/31/24 12:06
PRN PRN
hypoglycemia
Protocol
Potassium Chloride 20 meq/ 510 mls @ 80 mls/hr 03/06/24 11:00 03/06/24 11:25
Dextrose IV 03/06/24 17:22 510 mls
.Q6H23M MARION Administration
Insulin Aspart 0 units 03/04/24 17:43 03/06/24 08:42
Insulin Aspart Moderate Resistance 300 Units/3 Ml Pen.Injctr SC 04/01/24 17:42 Not Given
AC MARION
Protocol
Metoprolol Succinate 50 mg 03/03/24 22:00 03/05/24 22:10
Metoprolol 50 Mg Extended Release Tablet PO 03/31/24 21:59 50 mg
HS MARION Administration
Metoprolol Succinate 100 mg 03/04/24 08:00 03/06/24 08:43
Metoprolol 100 Mg Extended Release Tablet PO 04/01/24 07:59 100 mg
DAILY MARION Administration
Miconazole Nitrate 0 applic 03/03/24 20:00 03/06/24 08:43
Miconazole Powder Bottle TOPICAL 03/31/24 19:59 1 applic
BID MARION Administration
Oxycodone HCl 5 mg 03/03/24 12:07
Oxycodone 5 Mg Regular Release Tablet PO 03/17/24 12:06
Q4HPRN PRN
moderate pain
Polyethylene Glycol 17 grams 03/03/24 12:07
Polyethylene Glycol Powder 17 Grams Packet PO 03/31/24 12:06
DAILYPRN PRN
constipation
Risperidone 0.75 mg 03/05/24 22:00 03/05/24 22:10
Risperidone 0.25 Mg Tablet PO 04/02/24 21:59 0.75 mg
HS MARION Administration
Risperidone 0.25 mg 03/06/24 08:00 03/06/24 08:43
Risperidone 0.25 Mg Tablet PO 04/03/24 07:59 0.25 mg
DAILY MARION Administration
Risperidone 0.5 mg 03/05/24 19:26
Risperidone 0.25 Mg Tablet PO 04/02/24 19:25
BIDPRN PRN
acute agitation
Senna/Docusate Sodium 1 tablet 03/03/24 12:07
Docusate W/Senna (Arely-Colace) Tablet PO 03/31/24 12:06
BIDPRN PRN
constipation
Sodium Chloride 0 flush 03/03/24 11:00
Sodium Chloride 0.9% (Flush) Syringe IV 03/31/24 10:59
PER PROTOCOL MARION
Tiotropium [place] 2 puff 03/04/24 08:00 03/06/24 07:28
Tiotropium (Spiriva Respimat) 2.5 Mcg Inhaler INH 04/01/24 07:59 2 puff
R DAILY MARION Administration
Protocol
Torsemide 60 mg 03/04/24 08:00 03/06/24 08:43
Torsemide 20 Mg Tablet PO 04/01/24 07:59 60 mg
DAILY MARION Administration
Warfarin Sodium 3 mg 03/04/24 18:00 03/05/24 17:35
Warfarin 3 Mg Tablet PO 03/09/24 17:59 3 mg
QPM MARION Administration
[2024-03-06 12:57] LABS: Glucose - Point of Care 191 mg/dl (70-99)
[2024-03-06] MEDS: NOVOLOG FLEXPEN-MODERATE RESISTANCE 1 UNITS SC (13:09)
--- NOTE | 2024-03-06 14:21 | W.PN.UPDATE ---
Update Note
Progress Note Update
patient seen chart reviewed. spoke with nursing. at bedside. the patient is much much improved. i had seen her on admit last week when she was struggling cognitively and i significant medical distress. feels the risperdal has helped
calm her mental status and for the most part she seemed to be reasonably able to engage. nursing tells me every now and then she will say something that indicates confusion from time to time but when i saw her she was appropriate as far as i could
tell. she spoke of regretting some of her behaviors on admit and wanting to appologize for causing nursing staff to need to work harder. we talked about her love of reading and how lately she has struggled to follow the thread of the story (given
hypoxia at admit that is not hard to understand and perhaps it will improve some going forward). for now leave risperdal as is. will however look towards taper and dc as she continues to improve.
--- NOTE | 2024-03-06 14:50 | CARDSERVLU ---
Echocardiogram with Lumason completed after protocol screening completed. Allergies verified.
Patent IV site: __R arm___
IV site flushed with 0.9% NaCl pre and post administration.
Diluted bolus method utilized to enhance visualization of ventricular kurtz.
Total volume given: _2.5___ mL
Patient tolerated all procedures well without complications.
[2024-03-06] MEDS: COUMADIN 3 MG PO (17:13)
[2024-03-06 18:17] LABS: Glucose - Point of Care 99 mg/dl (70-99)
--- NOTE | 2024-03-06 20:00 | PTCARENOTE ---
supervisor nutritional yeast, pt OOB in chair with alarm on and medsitter. currently aaox3, cooperative. AFib HR 80s. RUE IV x 2, LFA IV x 1 WNL. Sat 98% on 6LNC. POC discussed, call avitia in reach.
[2024-03-06 20:55] LABS: Blood Urea Nitrogen 23 mg/dl (7-17); Calcium 8.3 mg/dl (8.4-10.2); Carbon Dioxide 33 mmol/L (22-30); Chloride 96 mmol/L (98-107); Estimated Creatinine Clearance 91 ml/min; Glucose 188 mg/dl (70-99); Potassium 3.3 mmol/L (3.5-5.1); Sodium 143 mmol/L (135-145); eGFR > 60.00
[2024-03-06 22:03] LABS: Glucose - Point of Care 199 mg/dl (70-99)
[2024-03-06] MEDS: RISPERDAL 0.75 MG PO (22:42)
[2024-03-06] MEDS: TOPROL XL 50 MG PO (22:45)
[2024-03-07] VITALS (12 sets, daily range): BP systolic 93–134; BP diastolic 69–98; PULSE 85–86; O2SAT 94–95; BMI 46.1
--- NOTE | 2024-03-07 01:39 | PTCARENOTE ---
pt appears more forgetful, trying to get up OOB multiple times setting off bed alarm/alerting medsitter, removing 02 and tangling monitor wires, now saying she needs to leave and she is calling her to come get her. attempts made to reorient.
pt laughing and saying 'it's crazy here'. pt called and ultimately said she will try to sleep one more time and then she will call her or sister to come get her. pt now in reclining chair with chair alarm on, call avitia with pt.
[2024-03-07 05:09] LABS: INR 2.31; PT 25.2 Sec (11.4-14.6)
--- NOTE | 2024-03-07 05:45 | PTCARENOTE ---
pt more calm but still forgetful at times, attempts to get OOB on own, medsitter and bed/chair alarm in place, pt restless- back and forth to bed/recliner every couple hrs. no further changes.
[2024-03-07] MEDS: SPIRIVA RESPIMAT 2.5 MCG 2 PUFF INH (07:26)
[2024-03-07] MEDS: PULMICORT 0.5 MG INH ×2 (07:26→19:10)
[2024-03-07] MEDS: VENTOLIN NEBULES 2.5 MG INH ×4 (07:27→19:10)
[2024-03-07] MEDS: LANOXIN 125 MCG PO (07:46)
[2024-03-07] MEDS: CYMBALTA DELAYED RELEASE 60 MG PO (07:47)
[2024-03-07] MEDS: TOPROL XL 100 MG PO (07:47)
[2024-03-07] MEDS: RISPERDAL 0.25 MG PO (07:47)
[2024-03-07] MEDS: DESENEX/MITRAZOL/ZEASORB 1 APPLIC TOPICAL ×2 (07:47→21:40)
[2024-03-07] MEDS: DEMADEX 60 MG PO (07:47)
[2024-03-07] MEDS: NOVOLOG FLEXPEN-MODERATE RESISTANCE SC ×2 (07:52→17:07)
[2024-03-07 08:03] LABS: Glucose - Point of Care 109 mg/dl (70-99)
--- NOTE | 2024-03-07 08:30 | PTCARENOTE ---
Received pt @ change of shift; AAOx3, forgetful @ x's; alarms activated. Med-sitter placed on stand by. Afib on monitor. SpO2 93% on 3LNC. Auscultated dim breath sounds throughout. +BS, abd soft/round/obese. Cont b/b. Stand by assisted into BR
for AM hygiene and void/BM. s/p BR assisted into chair. Tolerating meals. Remains in chair @ this time. Instructed on how to report care concerns and call avitia placed in reach.
[2024-03-07 09:28] LABS: Blood Urea Nitrogen 22 mg/dl (7-17); Calcium 8.5 mg/dl (8.4-10.2); Carbon Dioxide 31 mmol/L (22-30); Chloride 99 mmol/L (98-107); Estimated Creatinine Clearance 103 ml/min; Glucose 143 mg/dl (70-99); Potassium 3.7 mmol/L (3.5-5.1); Sodium 142 mmol/L (135-145); eGFR > 60.00
[2024-03-07 09:40] LABS: Magnesium 1.7 mg/dl (1.6-2.3)
--- NOTE | 2024-03-07 09:53 | W.PN.NEPH.PH ---
Today's Communication / Plan
-
sign off
Assessment/Plan
-
Impression:
Change of Mental Status
Congestive heart failure exacerbation
Hypernatremia
Urinary retention requiring catheterization
Hypokalemia
Akathisia with mild confusion, concern for early toxic metabolic encephalopathy with possible UTI
Anxiety d/o
Hypertension
Atrial fibrillation
COPD on chronic oxygen
Pulmonary hypertension
Diabetes
History of aortic stenosis status post TAVR
History of CVA (Right [employer]PER[employer])
Plan:
Hypernatremia;
-lytes stable we will sign off
-
-
Date of Service: March 07, 2024
CC / HPI / ROS
-
Chief Complaint:
Hypernatremia
History of Present Illness:
hypernatremia
hemodynamically stable
K stable
Review of Systems:
non oliguric
chronic sob
Labs
-
Labs:
WBC 7.7 10^3/uL (4.8-10.8) 03/06/24 03:32
RBC 4.65 10^6/uL (4.20-5.40) 03/06/24 03:32
Hgb 15.0 g/dL (12.0-16.0) 03/06/24 03:32
Hct 44.6 % (37.0-47.0) 03/06/24 03:32
Plt Count 186 10^3/uL (130-400) 03/06/24 03:32
Sodium 142 mmol/L (135-145) 03/07/24 08:27
Potassium 3.7 mmol/L (3.5-5.1) 03/07/24 08:27
Chloride 99 mmol/L (98-107) 03/07/24 08:27
Carbon Dioxide 31 mmol/L (22-30) H 03/07/24 08:27
BUN 22 mg/dl (7-17) H 03/07/24 08:27
Creatinine 0.7 mg/dL (0.6-1.0) 03/07/24 08:27
eGFR > 60.00 03/07/24 08:27
Glucose 143 mg/dl (70-99) H 03/07/24 08:27
Calcium 8.5 mg/dl (8.4-10.2) 03/07/24 08:27
Dgl-R-Symlnvoexce Pept 3690 pg/ml 03/03/24 05:51
Albumin 3.6 g/dl (3.5-5.0) 03/06/24 03:32
Physical Exam
-
Vital Signs:
Vital Signs
Temp Pulse Resp BP Pulse Ox
98.2 F 94 18 122/80 93
03/07/24 08:07 03/07/24 07:47 03/07/24 07:35 03/07/24 07:47 03/07/24 07:40
Cardiovascular:: Regular rate and rhythm
Respiratory:: Bilateral: Coarse
Lung Excursion:: Normal
Abdomen:: Nontender and Soft
Bowel Sounds:: Normal
Extremity Edema:: None: Bilateral:
José Catheter: No
--- NOTE | 2024-03-07 10:29 | W.PN.PUL3 ---
Today's Communication / Plan
-
Continue with diuretics
Restart nebulizers upon discharge
Continue percussion therapy
Noninvasive mechanical ventilation nocturnally highly recommended. Patient declined.
No additional recommendations from my perspective
Sign off
Assessment
-
Patient is a 68 year old F with PMHx of COPD, HTN, HLD, anxiety, CHAS intolerant to CPAP, s/p TAVR, Afib on coumadin, pulmonary HTN, chronic hypoxic respiratory failure on 3L home O2, HFpEF brought by her with mild agitation and
restlessness. On arrival to ER, there is noted mild elevation of creatinine, lactate and hypokalemia. Patient has been having urinary retention as well, notes she was doing well on diuretics but then stopped voiding in the past few days
despite increased dose. proBNP 3690, CXR unchanged compared to prior. We are consulted for eval.
Acute respiratory failure with hypoxia
Acute HFpEF exacerbation, proBNP 3690
Change in MS, restlessness- resolved
Medical noncompliance
Chronic conditions SOLUTION MIXER:
Reported history of COPD/asthma, follows with Russ Smith
Atrial flutter with RVR (new onset)
Mild�moderate pulmonary hypertension with PASP 45�50 assuming an RAP of 15 mmHg
Severe CHAS intolerant to CPAP (per patient) with secondary polycythemia (initial Hb 18.5 on 01/19/2024)
Suspected OHS
Morbid obesity, BMI 48
Hypertension
Hyperlipidemia
DM type II
Aortic stenosis s/p TAVR
Anxiety
History of CVA
Former tobacco smoker (quit 1999)
Plan:
Patient is a 68 year old F with PMHx of COPD, HTN, HLD, anxiety, CHAS intolerant to CPAP, s/p TAVR, Afib on coumadin, pulmonary HTN, chronic hypoxic respiratory failure on 3L home O2, HFpEF brought by her with mild agitation and
restlessness. On arrival to ER, there is noted mild elevation of creatinine, lactate and hypokalemia. Patient has been having urinary retention as well, notes she was doing well on diuretics but then stopped voiding in the past few days
despite increased dose. proBNP 3690, CXR unchanged compared to prior. We are consulted for eval.
Acute respiratory failure with hypoxia
Requiring 10 to 15 L, improved
Acute HFpEF exacerbation, proBNP 3690
Urinary retention
Change in MS, restlessness
Medical noncompliance
Chronic conditions SOLUTION MIXER:
Reported history of COPD/asthma, follows with Russ Smith
Atrial flutter with RVR (new onset)
Mild�moderate pulmonary hypertension with PASP 45�50 assuming an RAP of 15 mmHg
Severe CHAS intolerant to CPAP (per patient) with secondary polycythemia (initial Hb 18.5 on 01/19/2024)
Suspected OHS
Morbid obesity, BMI 48
Hypertension
Hyperlipidemia
DM type II
Aortic stenosis s/p TAVR
Anxiety
History of CVA
Former tobacco smoker (quit 1999)
Plan:
Clinically improved.
Ox supplementation down to baseline 3 L nasal cannula.
Continue to provide oxy supplementation to maintain pulse ox above 90%
-
Patient has chronic hypercapnic respiratory failure: Due to severe obstructive sleep apnea as well as likely obesity hypoventilation syndrome.
Intolerant to noninvasive mechanical ventilation.
This will explain her worsening pulmonary hypertension.
Patient is aware.
Strongly advised to continue to follow-up with her pound attendant.
Avoid sedative.
-
Echo 01/19/2024, EF 75%, status post TAVR, enlarged RV size with reduced function, septal flattening consistent with RV pressure and volume overload, PA pressure 50
HF exacerbation.
Repeat echocardiogram 03/06/2024: Moderate to severe TR, severe pulmonary hypertension, TAVR functioning properly. Septal flattening in systole and diastole consistent with RV pressure and volume overload
ProBNP >3000
overall responding to diuresis clinically
Continue gentle diuresis
Cardiology correspondence reviewed.
As clinically improving, holding on right heart catheterization.
-
Follow daily weights
-
COPD/asthma: Not bronchospastic on exam.
Continue nebulized therapy-budesonide/albuterol as well as Spiriva while in the hospital.
-
Yupelri/AFormoterol/budesonide in the outpatient setting(restart upon discharge)
No indication for systemic corticosteroid
Patient reports difficulty expectorating: She has percussion therapy at home. Continue vest therapy while in the hospital
Incentive spirometry also will be ordered
Increase activity as tolerated likely will improve with oxygenation as well.
Change in MS, back to baseline. Resolved.
History of CVA, CT head showing meningioma
Neurology following as well. Correspondence reviewed
Psychiatry also noted. Unclear whether she may have presented with serotonin syndrome
DVT prophylaxis-on warfarin, INR now greater than 2
She ultimately will follow-up with her private pound attendant, Dr. Smith.
If she wishes to transition to us at [facility] we will facilitate
No additional recommendation from the pulmonary perspective. Patient seems to be back to baseline from the pulmonary perspective.
She understand the risk of readmission with chronic hypercapnic respiratory failure, untreated obstructive sleep apnea and severe pulmonary hypertension can be addressed in the outpatient setting.
She clinically improved with diuresis.
At this point sign off

Diagnostic Data
CXR 01/19/24- Mild pulmonary edema. No definite pleural effusion.
CTA Chest 01/19/2024: No evidence of pulmonary embolism or active pulmonary process. Bilateral hilar lymphadenopathy. It is difficult to evaluate for hilar lymphadenopathy on the previous CT from 09/09/2022 given the absence of intravenous contrast on
this exam. Mediastinal lymphadenopathy is unchanged. Dilated pulmonary arterial system which can be seen in the setting of pulmonary arterial hypertension.
CT Head 03/03/24- 1). There are no acute intracranial abnormalities
2). Old 6.5 cm right occipital infarct
3). 2.8 cm meningioma over the anterolateral right parietal convexity
ECHO 01/19/24- Hyperdynamic left ventricular systolic function. LV ejection fraction is 70- 75%. Mild mitral stenosis. s/p TAVR 29 mm Medtronic Evolut. Peak/mean gradients across the aortic valve are 8/5 mmHg. No aortic regurgitation. Enlarged right
ventricular size. Reduced right ventricular systolic function. Septal flattening in systole and diastole consistent with RV pressure and volume overload. Mild tricuspid regurgitation. Moderately elevated PASP. Estimated pulmonary artery pressure of
45-50 mmHg assuming a right atrial pressure of 15 mmHg. Compared to 05/01/22: RV dysfunction is now present. PASP was unable to be measured on prior study.
Reports and relevant images were personally reviewed.
Subjective Data
-
Date of Service:
Date of Service: March 07, 2024
Chief Complaint: Pulmonary Follow Up (Hypoxemic respiratory failure)
Subjective:
Overall, patient feels better.
Denies phlegm production.
Denies shortness of breath at rest
Review of Systems
General: Fever (n)
Cardiopulmonary: Dyspnea (improved)
GI: Abdominal Pain (n) and Nausea
Neuro: Headache (n)
Objective Data
Data Reviewed
Vital Signs / I&O / Oxygen:
Vital Signs
Temp Pulse Resp BP Pulse Ox
98.2 F 94 18 122/80 93
03/07/24 08:07 03/07/24 07:47 03/07/24 07:35 03/07/24 07:47 03/07/24 07:40
Intake and Output
03/06/24 03/07/24 03/08/24
06:59 06:59 06:59
Intake Total 960 / 960 1940 / 1940 240 / 240
Output Total 500 / 500 600 / 600
Balance 460 / 460 1340 / 1340 240 / 240
SaO2 93
Nasal Cannula flow liters per 3
minute
Physical Exam
General: Comfortable and Other (Able to speak in full sentences)
HEENT: Normocephalic
Cardiovascular: S1-S2
Respiratory: Clear and Non-Labored Respirations
GI: Soft and Distended (Obese)
Neurology: Awake, Alert, AO x 3 and No Motor Deficits
Skin: Good Color
Labs/Micro/Reports
Lab Data
03/06/24 03:32
03/07/24 08:27
Laboratory Results
03/07/24
04:21
PT 25.2 H
INR 2.31
Microbiology
03/03/24 09:13 Blood/Venous Blood Culture - Preliminary
No Growth in 4 days- Final report to follow
03/03/24 09:13 Blood/Venous Blood Culture - Preliminary
No Growth in 4 days- Final report to follow
03/03/24 15:54 Nose MRSA Screen - Final
No Methicillin Resistant Staphylococcus aureus isolated.
--- NOTE | 2024-03-07 11:15 | W.PN.UPDATE ---
Update Note
Progress Note Update
patient seen chart reviewed. discussed w nursing. patient seen initiallyll w respiratory walking in hallway. she was then seated at bedside. mrs romero reports she is feeling much better. she feels clearer mentally and stronger physically. she said
she slept better last night than she has in some time. nursing reports she is consistent w calling them if she needs to get up o/o chair or bed eg to use bathroom. she said she can't remember her first day here but feels embarrassed that she was so
out of it. at this point can dc am risperdal. also can dc med sitter which was a nursing measure. psych will see her tomorrow and make a decision re tapering and dc the hs risperdal.
--- NOTE | 2024-03-07 11:41 | PTCARENOTE ---
Addendum entered by Evangelina Ortiz RN 03/07/24 12:20:
pt.'s to bedside this afternoon; updated on plan of care.
Original Note:
Home O2 assessment completed w RT. Upon completion pt. requires 6L on exertion and 3L @ rest to keep SpO2 @ goal per orders. PT/OT also to bedside this AM to work w patient. Pt. remains OOB to chair; chair alarm active; call avitia in reach.
--- NOTE | 2024-03-07 11:49 | W.PN.HOSP.TC ---
Today's Communication/Plan
-
Transfer to tele
Improving
Discussed case with specialists involved in the case, psychiatry recommending discharge tomorrow given patient is still on Risperdal
Assessment / Plan
Assessment / Plan
Physical Exam
General: No Apparent Distress and Obese
Respiratory: Clear to Auscultation
Cardiac: Regular Rhythm
GI: Soft, Nontender and Nondistended. Positive bowel sounds.
Musculoskeletal: No Cyanosis and No Edema
Skin: Warm
Psych: Calm
Assessment/Plan
68yo F with PMHx of COPD, HTN, HLD, anxiety, CHAS intollerant to CPAP, s/p TAVR, Afib on coumadin, pulmonary HTN, chronic hypoxic respiratory failure on 3L home O2, HFpEF brought by her with mild agitation and irresistible ordonez to move
started this AM. Patient also c/o vague abdominal discomfort on arrival, however later during this admission it completely resolved. Could not exclude serotonin syndrome with recent change of Amitriptyline to trazodone
68 y/o female presented with complaints of AMS and akathysia, concerned for serotonin syndrome, so serotonergic medications were stopped. Also worsening hypoxia - had multitude reasons for it.
#Akathisia with mild confusion, concern for early toxic metabolic encephalopathy with possible UTI
#History of CVA, CT head showing meningioma
Anxiety d/o
CT head showed hemangioma
Neurology and Psych consult recommendations appreciated -- psychiatry recommended monitoring patient inpatient for another day since patient is still on Risperdal (which is being weaned off by psychiatry)
No med sitter needed, appreciate psychiatry
MRI brain
hold Amitriptyline, duloxetine, tramadol
Bcx NTD, UA unremarkable for infection, XR without pneumonia - reasonable to stop Abx
Speech screening by RN
Continue Thiamine
#Acute on chronic hypoxic hypercapnic respiratory failure, most likely 2/2 agitation and tachypnea
#COPD, no clear exacerbation since no wheezing
#Acute on Chronic HFpEF
#CHAS - intolerant to noninvasive mechanical ventilation/CPAP
#Chronic hypercapnic respiratory failure: Due to severe obstructive sleep apnea as well as likely obesity hypoventilation syndrome
#Pulmonary HTN 2/2 COPD
-Pulm consult, cont O2, cont bronchodilators
-Per cardiology, Echo on 03/06/24 suggested PA pressures are higher than one month ago. Patient's RV is still significantly dilated and significantly hypokinetic. LVED EP was only 17 in January 2022. Perhaps RV failure and pulmonary hypertension has
another etiology beyond left heart failure -- discussed with pulmonary, suspected to be from CHAS/OHS
-However, continue gentle diuresis with 60 mg torsemide daily -- patient is responding clinically
-Patient is now on oxygen 3Liters per minute with O2 sat 92% (this is her baseline level of oxygen)
-SGLT2 inhibitor is cost-prohibitive for the patient
-Continue nebulized therapy-budesonide/albuterol as well as Spiriva while in the hospital.
-Yupelri/AFormoterol/budesonide in the outpatient setting(restart upon discharge)
-Incentive spirometry, VEST therapy
-At the time of discharge, follow-up with outpatient line welder Dr Lolis Otero ([facility]) and medical orderly, Dr. Smith
#Abdominal Pain
CTA in ED done, but poor quality 2/2 movements
No gross abnormality
Lipase WNL
#Hypernatremia - RESOLVED
#Hypokalemia - RESOLVED
#Elevated Cr without AIYANA
Magnesium at 1.7 -- provided oral magnesium
Recheck BMP
Consulted nephrology, appreciate their evaluation and recommendations: patient was given limited D5W IV fluids and potassium replacement
#Elevated lactate - RESOLVED
possibly 2/2 hypoxia and metformin with mild dehydration
follow lactate
#Supratherapeutic INR - RESOLVED
#Subtherapeutic INR - RESOLVED
#AFib, persistent
-Cont coumadin and follow INR
-Digoxin level WNL, cont digoxin
-Continue home digoxin 125 mcg daily, metoprolol 150 mg daily, and warfarin- goal INR 2-3
#chronic erythrocytosis 2/2 CHAS and most likely chronic hypoxia
follow CBC
#DM type 2 with neuropathy
Accuchecks, Insulin SS, DM diet, check HgbA1c
cont Glipizide
#HTN
-Continue metoprolol
#HLD
cont meds
#Obesity
BMI 48.2
advise to decrease calorie intake
#Chronic elevation of alk.phos
#Elevated bilirubin
seen in Sept
follow trend
hepatitis panel neg
follow LFT
US RUQ with normal CBD, no sonographic signs of cholecystitis
LDH mildly elevated without anemia
#Liver lesion
MRI indicated
#Subclinical hyperthyroidism vs euthyroid sick syndrome
FT4, FT3 WNL
DVT ppx on Coumadin
FUll code as per discussion with and patient bedside
Anticipated Discharge: Within 24 hours
Subjective/Interval History
-
Date of Service: March 07, 2024
Patient was seen and examined. She denied any chest pain, shortness of breath or any other complaints.
Objective Data
-
Labs:
Laboratory Results
03/07/24 03/07/24
04:21 08:27
PT 25.2 H
INR 2.31
Sodium Cancelled 142
Potassium Cancelled 3.7
Chloride Cancelled 99
Carbon Dioxide Cancelled 31 H
BUN Cancelled 22 H
Creatinine Cancelled 0.7
Glucose Cancelled 143 H
Calcium Cancelled 8.5
Vital Signs:
Vital Signs
Temp Pulse Resp BP Pulse Ox
97.7 F 89 18 134/89 94
03/07/24 11:36 03/07/24 11:29 03/07/24 11:29 03/07/24 11:12 03/07/24 11:29
I&O
03/06/24 03/07/24 03/08/24
06:59 06:59 06:59
Intake Total 960 / 960 1940 / 1940 240 / 240
Output Total 500 / 500 600 / 600
Balance 460 / 460 1340 / 1340 240 / 240
[2024-03-07 12:05] LABS: Glucose - Point of Care 184 mg/dl (70-99)
[2024-03-07] MEDS: MAGNESIUM OXIDE 500 MG PO (12:11)
--- NOTE | 2024-03-07 13:06 | W.PN.CD ---
Today's Communication / Plan
-
Continued improvement
Continue diuresis
Impression / Plan
-
68 yo female with PMH of chronic HFPEF, TAVR, A-fib on Coumadin, pulmonary hypertension, chronic hypoxic respiratory failure on 3 L home O2, COPD, untreated CHAS, morbid obesity who was brought in by her for restlessness and agitation.
Cardiology is consulted for hypoxia.
Lining Stamper: Dr. Otero ([facility])
Hypoxia
- She is now on O2 3L/min with O2 sat 92%. This shows continued improvement
-Volume overload likely- she feels better and CXR improving.
-Wt now down to 285
-Would continue 60 mg torsemide daily and aim for continued gentle diuresis
-ECHO 03/06 showed EF 75%, TG, RVE/RV HK, severe pulm HTN with est PAsys 80, normally functioning TAVR valve with mean gradient 26
Acute on chronic HFpEF, pulmonary hypertension
-Diuresis as above
-SGLT2 inhibitors are cost prohibitive
Persistent atrial fibrillation on warfarin, present on admission
-INR subtherapeutic on admission, now therapeutic at 2.3
-Follow-up brain MRI showed old meningioma but no CVA
-Continue home digoxin 125 mcg daily, metoprolol 150 mg daily, and warfarin- goal INR 2-3
Hypertension
-Normotensive
-Continue metoprolol
Change in mental status
-Resolved
-Psychiatry and neurology on board
Aortic stenosis status post TAVR
-Gradients stable on echocardiogram
Outpt paper inserter is Dr Lolis Otero ([facility])
Physical Exam
Vital Signs/Labs
Vital Signs
Temp Pulse Resp BP Pulse Ox
97.7 F 89 18 134/89 94
03/07/24 11:36 03/07/24 11:29 03/07/24 11:29 03/07/24 11:12 03/07/24 11:29
03/06/24 03/07/24 03/08/24
06:59 06:59 06:59
Actual Weight 291 lb 7.218 oz 285 lb 7.978 oz
03/06/24 03:32
03/07/24 08:27
PT 25.2 Sec (11.4-14.6) H 03/07/24 04:21
INR 2.31 03/07/24 04:21
APTT 31.3 Sec (23.4-35.0) 03/03/24 15:54
Magnesium Cancelled 03/07/24 08:28
Free T4 1.52 ng/dl (0.78-2.19) 03/03/24 05:51
Digoxin 0.7 ng/ml (0.8-2.0) L 03/03/24 05:51
03/03/24
05:51
Pyz-H-Ugxrhivhyrd Pept 3690
Physical Exam
Constitutional: No acute distress and Comfortable
Cardiovascular: Rhythm & rate is regular and S1S2 is normal
Respiratory: Respiratory effort normal and Lungs clear to auscul.
GI: Distention absent
Neuro/Psych: AO x 3 and Motor deficits absent
Data Reviewed
-
Date of Service: March 07, 2024
[2024-03-07] MEDS: NOVOLOG FLEXPEN-MODERATE RESISTANCE 1 UNITS SC (13:11)
--- NOTE | 2024-03-07 13:40 | CM ---
CM following re: discharge planning.
Reviewed pt's chart, met with pt and pt's at bedside.
PT and OT evaluations noted - home PT/OT recommended. Both pt and her are aware and pt stated she is [facility]
A referral to [facility], [facility] noted. Pt is accepted for VN services upon the discharge.
Pt is at baseline with O2 requirement, 3L NC. Pt's stated he will transport his spouse. IMM reviewed, placed on chart, pt has acopy.
D/C plan: home with VN and family support. to transport at discharge.
[2024-03-07] MEDS: LIPITOR 10 MG PO (17:05)
[2024-03-07] MEDS: COUMADIN 3 MG PO (17:05)
[2024-03-07 17:17] LABS: Glucose - Point of Care 116 mg/dl (70-99)
--- NOTE | 2024-03-07 17:34 | PTCARENOTE ---
Received pt from ICU via wheelchair. Pt assisted x 1 into bed. O2 3L on pt and slight SOB noted with movement and pt's lips turned slightly blue but recovered quickly. Belongings placed in room and pt ordering dinner.
--- NOTE | 2024-03-07 17:41 | PTCARENOTE ---
Report given to 4W RN. Pt. transferred via wheelchair on monitor and storage bin tender w belongings to rm [id number], bed 2. updated on bed change prior to transfer. No further needs from this RN.
[2024-03-07 21:06] LABS: Glucose - Point of Care 209 mg/dl (70-99)
[2024-03-07] MEDS: RISPERDAL 0.75 MG PO (21:41)
[2024-03-07] MEDS: TOPROL XL 50 MG PO (21:49)
[2024-03-08] MEDS: RISPERDAL 0.5 MG PO (01:46)
[2024-03-08 03:26] VITALS: BP 112/75
[2024-03-08 07:00] VITALS: BP 129/75
[2024-03-08 07:46] LABS: Glucose - Point of Care 141 mg/dl (70-99)
[2024-03-08] MEDS: NOVOLOG FLEXPEN-MODERATE RESISTANCE SC ×2 (07:49→13:02)
[2024-03-08 08:11] LABS: Hematocrit 47.3 % (37.0-47.0); Hemoglobin 15.7 g/dL (12.0-16.0); Mean Corp Hgb Conc. 33.2 g/dL (33.0-37.0); Mean Corpuscular Hgb 32.9 pg (27.0-31.0); Mean Corpuscular Volume 99.2 fL (81.0-99.0); Mean Platelet Volume 11.4 fL (7.4-10.4); Platelet Count 159 10^3/uL (130-400); Red Blood Cell Count 4.77 10^6/uL (4.20-5.40); Red Cell Dist. Width 16.6 % (11.5-14.5); White Blood Cell Count 7.1 10^3/uL (4.8-10.8)
[2024-03-08] MEDS: DEMADEX 60 MG PO (08:23)
[2024-03-08] MEDS: TOPROL XL 100 MG PO (08:24)
[2024-03-08] MEDS: CYMBALTA DELAYED RELEASE 60 MG PO (08:24)
[2024-03-08] MEDS: LANOXIN 125 MCG PO (08:24)
--- NOTE | 2024-03-08 08:25 | W.PN.CD ---
Today's Communication / Plan
-
Continue current medications
ok to discharge from cardiac perspective
Patient should follow up with Outpt passenger relations representative is Dr Lolis Otero ([facility])
will sign off
Impression / Plan
-
68 yo female with PMH of chronic HFPEF, TAVR, A-fib on Coumadin, pulmonary hypertension, chronic hypoxic respiratory failure on 3 L home O2, COPD, untreated CHAS, morbid obesity who was brought in by her for restlessness and agitation.
Cardiology is consulted for hypoxia.
Home Service Director: Dr. Otero ([facility])
Hypoxia
- She is now on O2 3L/min with O2 sat 92%---said recently started this at home.
-Volume overload likely- she feels better and CXR improving.
-Wt now down to 129.5kg from 135.4kg on admission
-Would continue 60 mg torsemide daily and aim for continued gentle diuresis
-ECHO 03/06 showed EF 75%, TG, RVE/RV HK, severe pulm HTN with est PAsys 80, normally functioning TAVR valve with mean gradient 26
Acute on chronic HFpEF, pulmonary hypertension
-Diuresis as above
-SGLT2 inhibitors are cost prohibitive
-MRA bowling alley manager be considered as an op if not already in the past
Persistent atrial fibrillation on warfarin, present on admission
-INR subtherapeutic on admission, now therapeutic at 2.3
-Follow-up brain MRI showed old meningioma but no CVA
-Continue home digoxin 125 mcg daily, metoprolol 150 mg daily, and warfarin- goal INR 2-3
Hypertension
-Normotensive
-Continue metoprolol
Change in mental status
-Resolved
-Psychiatry and neurology on board
Aortic stenosis status post TAVR
-Gradients stable on echocardiogram
Subjective:
Patient feeling so much better,
Outpt passenger relations representative is Dr Lolis Otero ([facility])
Physical Exam
Vital Signs/Labs
Vital Signs
Temp Pulse Resp BP Pulse Ox
99.0 F 88 20 129/75 92
03/08/24 07:00 03/08/24 07:00 03/08/24 07:00 03/08/24 07:00 03/08/24 07:00
03/07/24 03/08/24 03/09/24
06:59 06:59 06:59
Actual Weight 129.5 kg
03/08/24 07:21
PT 25.2 Sec (11.4-14.6) H 03/07/24 04:21
INR 2.31 03/07/24 04:21
APTT 31.3 Sec (23.4-35.0) 03/03/24 15:54
Magnesium Cancelled 03/07/24 08:28
Free T4 1.52 ng/dl (0.78-2.19) 03/03/24 05:51
Digoxin 0.7 ng/ml (0.8-2.0) L 03/03/24 05:51
03/03/24
05:51
Sut-X-Devyuqldqos Pept 3690
Physical Exam
Constitutional: No acute distress
Cardiovascular: Systolic murmur absent, Diastolic murmur absent and Rhythm/rate is irregular
Respiratory: Respiratory effort normal, Lungs clear to auscul., Wheeze Absent, Crackles Absent and Rhonchi Absent
Neuro/Psych: AO x 3
Data Reviewed
-
Date of Service: March 08, 2024
EKG: Other
[2024-03-08] MEDS: SPIRIVA RESPIMAT 2.5 MCG 2 PUFF INH (08:27)
[2024-03-08] MEDS: VENTOLIN NEBULES 2.5 MG INH ×3 (08:27→15:11)
[2024-03-08] MEDS: PULMICORT 0.5 MG INH (08:27)
[2024-03-08] MEDS: DESENEX/MITRAZOL/ZEASORB 1 APPLIC TOPICAL (08:35)
[2024-03-08 08:54] LABS: INR 1.99; PT 23.1 Sec (11.4-14.6)
[2024-03-08 09:57] LABS: ALT (SGPT) 29 U/L (0-35); AST (SGOT) 33 U/L (14-36); Albumin 3.7 g/dl (3.5-5.0); Alkaline Phosphatase 145 U/L (38-126); Blood Urea Nitrogen 20 mg/dl (7-17); Calcium 8.8 mg/dl (8.4-10.2); Carbon Dioxide 36 mmol/L (22-30); Chloride 98 mmol/L (98-107); Estimated Creatinine Clearance 103 ml/min; Glucose 138 mg/dl (70-99); Magnesium 1.8 mg/dl (1.6-2.3); Potassium 3.3 mmol/L (3.5-5.1); Sodium 143 mmol/L (135-145); Total Bilirubin 1.5 mg/dl (0.2-1.3); Total Protein 6.8 g/dl (6.3-8.2); eGFR > 60.00
--- NOTE | 2024-03-08 10:01 | CM ---
Chart reviewed and patient is for discharge to home today, patient is current with [facility], patient requires 3 liters of oxygen in home, and has her own smart vest.
Plan; Home today with [facility] and patient has her own portable oxygen in room, spouse to transport.
[2024-03-08 11:30] VITALS: BP 148/88
[2024-03-08 13:00] LABS: Glucose - Point of Care 148 mg/dl (70-99)
--- NOTE | 2024-03-08 15:03 | W.PN.HOSP.TC ---
Today's Communication/Plan
-
Discharge today
Assessment / Plan
Assessment / Plan
Physical Exam
General: No Apparent Distress and Obese
Respiratory: Clear to Auscultation
Cardiac: Regular Rhythm
GI: Soft, Nontender and Nondistended. Positive bowel sounds.
Musculoskeletal: No Cyanosis and No Edema
Skin: Warm
Psych: Calm
Assessment/Plan
68yo F with PMHx of COPD, HTN, HLD, anxiety, CHAS intollerant to CPAP, s/p TAVR, Afib on coumadin, pulmonary HTN, chronic hypoxic respiratory failure on 3L home O2, HFpEF brought by her with mild agitation and irresistible ordonez to move
started on the morning of presentation. Patient also c/o vague abdominal discomfort on arrival, however later during this admission it completely resolved. Could not exclude serotonin syndrome with recent change of Amitriptyline to trazodone.
Serotonergic medications were stopped.
#Akathisia with mild confusion, concern for early toxic metabolic encephalopathy with possible UTI
#History of CVA, CT head showing meningioma
#Multifactorial encephalopathy most likely a combination of toxic metabolic, sleep deprivation due to inadequate control over obstructive sleep apnea
#Right parietal convexity meningioma; neurology disagreed with the formal reading by radiology which suggested that there is significant mass effect -- neurologist does not see that present
#Chronic R SUBASSEMBLER infarct
Anxiety d/o
Neurology and Psych consult recommendations appreciated
No med sitter needed, appreciate psychiatry
MRI brain
hold Amitriptyline, duloxetine, tramadol
Risperdione being tapered/weaned off
Bcx NTD, UA unremarkable for infection, XR without pneumonia - reasonable to stop Abx
Speech screening by RN
Continue Thiamine
Follow-up closely with neurosurgery outpatient given neuroimaging findings
#Acute on chronic hypoxic hypercapnic respiratory failure, most likely 2/2 agitation and tachypnea
#COPD, no clear exacerbation since no wheezing
#Acute on Chronic HFpEF
#CHAS - intolerant to noninvasive mechanical ventilation/CPAP
#Chronic hypercapnic respiratory failure: Due to severe obstructive sleep apnea as well as likely obesity hypoventilation syndrome
#Pulmonary HTN 2/2 COPD
-Pulm consult, cont O2, cont bronchodilators
-Per cardiology, Echo on 03/06/24 suggested PA pressures are higher than one month ago. Patient's RV is still significantly dilated and significantly hypokinetic. LVED EP was only 17 in January 2022. Perhaps RV failure and pulmonary hypertension has
another etiology beyond left heart failure -- discussed with pulmonary, suspected to be from CHAS/OHS
-However, continue gentle diuresis with 60 mg torsemide daily -- patient is responding clinically
-Patient is now on oxygen 3Liters per minute with O2 sat 92% (this is her baseline level of oxygen)
-SGLT2 inhibitor is cost-prohibitive for the patient
-Continue nebulized therapy-budesonide/albuterol as well as Spiriva while in the hospital.
-Yupelri/AFormoterol/budesonide in the outpatient setting(restart upon discharge)
-Incentive spirometry, VEST therapy
-At the time of discharge, follow-up with outpatient radio maintainer Dr Lolis Otero ([facility]) and medical photographer, Dr. Smith
#Abdominal Pain
CTA in ED done, but poor quality 2/2 movements
No gross abnormality
Lipase WNL
#Hypernatremia - RESOLVED
#Hypokalemia - RESOLVED
#Elevated Cr without AIYANA
Magnesium at 1.7 -- provided oral magnesium
Recheck CBC, CMP and Magnesium outpatient in 1 day
Consulted nephrology, appreciate their evaluation and recommendations: patient was given limited D5W IV fluids and potassium replacement
Discharge patient on Potassium 20 meq daily+Magnesium Oxide 400 mg daily
#Elevated lactate - RESOLVED
possibly 2/2 hypoxia and metformin with mild dehydration
follow lactate
#Supratherapeutic INR - RESOLVED
#Subtherapeutic INR
#AFib, persistent
-Cont coumadin and follow INR
-Digoxin level WNL, cont digoxin
-INR check with anticoagulation clinic/cardiology office by tomorrow
-Continue home digoxin 125 mcg daily, metoprolol 150 mg daily, and warfarin- goal INR 2-3
#chronic erythrocytosis 2/2 CHAS and most likely chronic hypoxia
follow CBC
#DM type 2 with neuropathy
Accuchecks, Insulin SS, DM diet
cont Glipizide
#HTN
-Continue metoprolol
#HLD
cont meds
#Obesity
BMI 48.2
advise to decrease calorie intake
#Chronic elevation of alk.phos
#Elevated bilirubin
seen in Jan
follow trend
hepatitis panel neg
follow LFT
US RUQ with normal CBD, no sonographic signs of cholecystitis
LDH mildly elevated without anemia
#Liver lesion
MRI indicated
#Subclinical hyperthyroidism vs euthyroid sick syndrome
FT4, FT3 WNL
DVT ppx on Coumadin
FUll code
More than 30 minutes spent in discharge including
Final examination of the patient
Summarizing hospital stay
Instructions for continuing care to all relevant caregivers
Preparation of discharge records, prescriptions, and referral forms
Total time spent (in minutes): 40
Anticipated Discharge: Today
Subjective/Interval History
-
Date of Service: March 08, 2024
Patient was seen and examined. She denied any chest pain, shortness of breath, or any other symptoms or complaints.
Objective Data
-
Labs:
Laboratory Results
03/08/24
07:21
WBC 7.1
Hgb 15.7
Hct 47.3 H
Plt Count 159
PT 23.1 H
INR 1.99
Sodium 143
Potassium 3.3 L
Chloride 98
Carbon Dioxide 36 H
BUN 20 H
Creatinine 0.7
Glucose 138 H
Calcium 8.8
Total Bilirubin 1.5 H
AST 33
ALT 29
Alkaline Phosphatase 145 H
Vital Signs:
Vital Signs
Temp Pulse Resp BP Pulse Ox
98.0 F 93 20 148/88 94
03/08/24 11:30 03/08/24 11:45 03/08/24 11:45 03/08/24 11:30 03/08/24 11:45
I&O
03/07/24 03/08/24 03/09/24
06:59 06:59 06:59
Intake Total 1940 / 1940 840 / 840
Output Total 600 / 600 700 / 700
Balance 1340 / 1340 140 / 140
[2024-03-08] MEDS: KCL 40 MEQ PO (15:12)
[2024-03-08 15:18] VITALS: BP 127/74
--- NOTE | 2024-03-08 15:52 | W.PN.UPDATE ---
Update Note
Progress Note Update
Pt seen with present. Pt alert and oriented, sensorium clear. Pt sitting up in chair, looking forward to planned discharge home. Pt and prefer to minimize psychotropic agents. Agitation has reportedly resolved, though pt has
ongoing sleep problems - per may be mainly due to sleep apnea.
Imp: TME, with agitation, resolved. does not have any signs of serotonin syndrome
Rec: will stop Risperidone. Agree with continuing duloxetine
Pt appears psychiatrically stable for discharge
[2024-03-08 16:49] LABS: Glucose - Point of Care 189 mg/dl (70-99)
[2024-03-08 17:28] LABS: Blood Urea Nitrogen 22 mg/dl (7-17); Carbon Dioxide 38 mmol/L (22-30); Chloride 96 mmol/L (98-107); Estimated Creatinine Clearance 103 ml/min; Glucose 162 mg/dl (70-99); Potassium 4.1 mmol/L (3.5-5.1); Sodium 145 mmol/L (135-145); eGFR > 60.00
[2024-03-08] MEDS: COUMADIN 3 MG PO (17:40)
[2024-03-08] MEDS: NOVOLOG FLEXPEN-MODERATE RESISTANCE 1 UNITS SC (17:42)
[2024-03-08] MEDS: LIPITOR 10 MG PO (17:42)
== END 2024-03-08 19:01 | disposition home health service (06) | DRG 56 ==
LOC: 4 WEST ACU 09:36
PROVIDERS: Registered Nurse; Student in an Organized Health Care Education/Training Program; ADMITTING PHYSICIAN Internal Medicine; ATTENDING PHYSICIAN Hospitalist; CONSULT PHYSICIAN Psychiatry & Neurology Neurology; CONSULT PHYSICIAN Psychiatry & Neurology Psychiatry; CONSULT PHYSICIAN Specialist; CONSULT PHYSICIAN Student in an Organized Health Care Education/Training Program; EMERGENCY PHYSICIAN Emergency Medicine; FAMILY PHYSICIAN Family Medicine; OTHER PHYSICIAN Internal Medicine
PROC: 5A09357 Assistance with Respiratory Ventilation, Less than 24 Consecutive Hours, Continuous Positive Airway Pressure (ICD-10-PCS; 2024-03-04)
DX: G25.71 Drug induced akathisia (principal); G92.8 Other toxic encephalopathy; J96.21 Acute and chronic respiratory failure with hypoxia; I50.33 Acute on chronic diastolic (congestive) heart failure; J96.22 Acute and chronic respiratory failure with hypercapnia; E87.20 Acidosis, unspecified; F03.94 Unspecified dementia, unspecified severity, with anxiety; I48.19 Other persistent atrial fibrillation; Z68.42 Body mass index [BMI] 45.0-49.9, adult; F03.918 Unspecified dementia, unspecified severity, with other behavioral disturbance; F03.93 Unspecified dementia, unspecified severity, with mood disturbance; F05 Delirium due to known physiological condition; E66.2 Morbid (severe) obesity with alveolar hypoventilation; E87.0 Hyperosmolality and hypernatremia; I48.92 Unspecified atrial flutter; N39.0 Urinary tract infection, site not specified; T43.015A Adverse effect of tricyclic antidepressants, initial encounter; T43.215A Adverse effect of selective serotonin and norepinephrine reuptake inhibitors, initial encounter; I11.0 Hypertensive heart disease with heart failure; E11.9 Type 2 diabetes mellitus without complications; K21.9 Gastro-esophageal reflux disease without esophagitis; I45.10 Unspecified right bundle-branch block; J44.9 Chronic obstructive pulmonary disease, unspecified; E87.6 Hypokalemia; I27.20 Pulmonary hypertension, unspecified; R79.1 Abnormal coagulation profile; R41.89 Other symptoms and signs involving cognitive functions and awareness; D75.1 Secondary polycythemia; K76.9 Liver disease, unspecified; E11.40 Type 2 diabetes mellitus with diabetic neuropathy, unspecified; E05.90 Thyrotoxicosis, unspecified without thyrotoxic crisis or storm; G47.00 Insomnia, unspecified; J98.4 Other disorders of lung; M79.7 Fibromyalgia; D32.9 Benign neoplasm of meninges, unspecified; E66.813 Obesity, class 3; E83.42 Hypomagnesemia; F41.1 Generalized anxiety disorder; R33.9 Retention of urine, unspecified; I07.1 Rheumatic tricuspid insufficiency; E78.5 Hyperlipidemia, unspecified; Z96.653 Presence of artificial knee joint, bilateral; Z99.81 Dependence on supplemental oxygen; Z95.3 Presence of xenogenic heart valve; Z88.0 Allergy status to penicillin; Z88.1 Allergy status to other antibiotic agents; Z88.2 Allergy status to sulfonamides; Z79.84 Long term (current) use of oral hypoglycemic drugs; Z79.01 Long term (current) use of anticoagulants; Z86.73 Personal history of transient ischemic attack (TIA), and cerebral infarction without residual deficits; Z81.1 Family history of alcohol abuse and dependence; Z87.891 Personal history of nicotine dependence; Z11.52 Encounter for screening for COVID-19; Z91.199 Patient's noncompliance with other medical treatment and regimen due to unspecified reason; Z86.011 Personal history of benign neoplasm of the brain; Y92.009 Unspecified place in unspecified non-institutional (private) residence as the place of occurrence of the external cause
CPT/HCPCS: 93308; 51701; 70450; 70551; 71045; 74174; 76700; 80048; 80053; 80162; 80202; 80306; 80307; 81003; 81015; 82140; 82248; 82550; 82805; 82962; 83605; 83615; 83690; 83735; 83880; 84439; 84443; 84481; 84484; 85025; 85027; 85379; 85610; 85730; 86704; 86706; 86803; 87040; 87070; 87340; 87502; 87811; 93005; 93321; 93325; 94640; 94660; 94669; 96365; 96366; 96367; 96375; 96376; 97163; 97166; 99291; Q9950; Q9967

== ENCOUNTER → 2024-03-13 14:25 | Outpatient (REF) | payer MEDICARE, OTHER, SELFPAY ==
[2024-03-13 17:48] LABS: % Basophils 1.2 % (0-2); % Eosinophils 2.5 % (0-6); % Immature Granulocytes 0.4 % (0-0.5); % Lymphocytes 28.3 % (20.5-51.1); % Monocytes 9.6 % (1.7-9.3); Absolute Basophils 0.1 10^3/uL (0-0.2); Absolute Eosinophils 0.2 10^3/uL (0-0.7); Absolute Lymphocytes 2.3 10^3/uL (1.2-3.4); Absolute Monocytes 0.8 10^3/uL (0.1-0.6); Absolute Neutrophils 4.7 10^3/uL (1.4-6.5); Hematocrit 47.8 % (37.0-47.0); Hemoglobin 16.2 g/dL (12.0-16.0); Mean Corp Hgb Conc. 33.9 g/dL (33.0-37.0); Mean Corpuscular Hgb 32.5 pg (27.0-31.0); Mean Platelet Volume 11.8 fL (7.4-10.4); Nucleated Red Blood Cells % 0 %; Platelet Count 232 10^3/uL (130-400); Red Blood Cell Count 4.98 10^6/uL (4.20-5.40); White Blood Cell Count 8.2 10^3/uL (4.8-10.8)
[2024-03-13 17:52] LABS: INR 1.76; PT 21.1 Sec (11.4-14.6)
[2024-03-13 18:01] LABS: ALT (SGPT) 33 U/L (0-35); AST (SGOT) 37 U/L (14-36); Alkaline Phosphatase 166 U/L (38-126); Blood Urea Nitrogen 31 mg/dl (7-17); Calcium 9.6 mg/dl (8.4-10.2); Carbon Dioxide 26 mmol/L (22-30); Chloride 100 mmol/L (98-107); Glucose 168 mg/dl (70-99); Magnesium 1.9 mg/dl (1.6-2.3); Potassium 3.3 mmol/L (3.5-5.1); Sodium 144 mmol/L (135-145); Total Bilirubin 1.9 mg/dl (0.2-1.3); Total Protein 7.1 g/dl (6.3-8.2); eGFR > 60.00
== END ==
LOC: OLAB 14:25
PROVIDERS: ATTENDING PHYSICIAN Family Medicine
DX: D68.59 Other primary thrombophilia (principal); E83.42 Hypomagnesemia; I48.91 Unspecified atrial fibrillation
CPT/HCPCS: 36415; 80053; 83735; 85025; 85610

== ENCOUNTER 2024-04-29 19:42 | Inpatient (IN) | payer MEDICARE, OTHER, SELFPAY ==
[2024-04-29] VITALS (21 sets, daily range): BP systolic 86–141; BP diastolic 44–92; PULSE 2–84; BMI 49.9; BMI 47.9
--- NOTE | 2024-04-29 14:48 | ED.GENMED ---
History of Present Illness
General
Chief Complaint: Breathing Problem
Source: patient, records and family
Time Seen by Provider: 04/29/24 14:38
History of Present Illness
History of Present Illness:
This patient is a 68-year-old female with a very complicated prior medical history including heart failure, A-fib, COPD, obstructive of sleep apnea, hypoventilation syndrome, pulmonary hypertension, who is intolerant of BiPAP CPAP typically,
presents to the emergency department after noted that she was complaining of pain everywhere including shoulder wrists knees and back associated with appearing disoriented and not being able to follow instructions. He got particular
concerned when she was turning blue even though he increased her home oxygen from the typical 3 L. Upon arrival to the ER, patient was immediately brought back to room 41 given her appearance of respiratory distress and hypoxia. History is limited
from patient. She denies any pain at this time. She is drowsy but awake and answers questions. She denies chest pain or pressure. She states that she suddenly got sleepy today associated with dyspnea. They both deny recent cough, fever, chills.
Patient denies abdominal pain, nausea, vomiting. She admits to being recently noncompliant with her medications including her diuretic, with associated increase in her lower extremity edema.
Past History
Past History
ED Past Medical History: Arrthythmia (Atrial fibrillation), Asthma, CHF, COPD, CVA (Right [employer] stroke), GERD, HTN, Hypercholesterolemia, NIDDM, Valvular disease, Psychiatric (Generalized anxiety disorder) and Other (Obstructive sleep apnea, morbid
obesity, right parietal meningioma)
ED Past Surgical History: Cardiac (Have our) and Orthopedic
Social History
Tobacco: Non-smoker
Alcohol: Occasional
Drug: None
Personal:
Living: with family
Family History
Family History: Other (Reviewed and noncontributory)
Phy Exam
Physical Exam
Physical Exam:
GENERAL: Awake but slightly drowsy, in moderate respiratory distress
EYE: pupils equal and reactive
NECK: Supple, no significant adenopathy.
ENT: o/p clr, mmm.
CARDIAC: Regular rate and rhythm .
LUNGS: Equal but decreased breath sounds bilaterally, scattered wheezing and rales noted bilaterally
ABDOMEN: Soft, without focal tenderness, no r/g
NEUROLOGICAL: Alert and oriented, grossly nonfocal
SKIN: Warm and dry, skin intact.
MUSCULOSKELETAL: 2+ bilateral lower extremity edema, well perfused.
PSYCH: Normal and appropriate interaction.
Scores
Heart Failure Risk
Heart Failure Risk Score: Not Applicable
Course
Orders/Labs/Results
Orders:
Orders
04/29/24 14:33
EKG [Electrocardiogram (*1)] Urgent
Reason for Study: Chest Pain
04/29/24 14:34
Chest X-ray Portable [CR Chest Portable - 1 View] Urgent
Comment:
Reason For Exam: severe respiratory distress
Reason Study Needs to be Portable: Patient Unstable
04/29/24 14:42
Bipap [RESP] Urgent
Patient to use own unit?: No
Inspiratory Pressure (cm H2O): 12
Expiratory Pressure (cm H2O): 6
Pulse Ox/cont/shift [RESP] Stat
Quantity: 1
04/29/24 14:52
Torsemide [Demadex] 60 mg PO NOW STA
04/29/24 14:55
Urinalysis Reflex To Culture Urgent
Date Specimen was Collected: 04/30/24
Time Specimen was Collected: 10:45
04/29/24 14:56
Complete Blood Count/With Diff Urgent
Comprehensive Metabolic Panel Urgent
NT-proBNP Urgent
Troponin I Urgent
04/29/24 Dinner
Cholesterol Lowering
At Your Request: Limited Participation
Fluid Restriction: 1200 mL/day (40 oz)
Cholesterol Lowering: Sodium, 2 Gram
1800 remigio/15 CHO Diabetic
04/29/24 15:10
COVID-19 Antigen Urgent
Source: Nasal Swab
Lactic Acid Q4H
Comment: CANCEL 2nd LACTIC ACID IF 1st LACTIC ACID IS LESS THAN 2
PTT Urgent
Prothrombin Time Urgent
Blood Culture Q30M
MAUREEN Source: Blood/Venous
Specimen Description:
Influenza A+B Rapid Molecular Urgent
MAUREEN Source: Nasal Swab
Specimen Description:
04/29/24 15:16
Arterial Blood Gas Urgent
%Oxygen/Room Air: 100
04/29/24 15:32
Blood Culture Q30M
MAUREEN Source: Blood/Venous
Specimen Description:
04/29/24 15:43
Bumetanide [Bumex] 2 mg IV NOW STA
04/29/24 16:11
Oseltamivir Phosphate [Tamiflu] 75 mg PO NOW STA
04/29/24 16:46
CARDIOLOGY CONSULT Routine
Consulting Provider: Jamaal Brumfield
Was physician already notified: Yes
Reason for consult: Acute on chronic CHF
04/29/24 16:47
Admit/Transfer Patient As Directed
Co-Sign Provider:
Level of Care: Inpatient admission
Assign to:: IMU- Intermediate Care
Physician / Group: sofie love
Diagnosis: hyoxic resp failure 2/2 FLU A, CHf exacerbation
Reason for Hospitalization: hyoxic resp failure 2/2 FLU A, CHf exacerbation
Expected length of stay greater than two midnights?: Yes
ELOS- Estimated Length of Stay in days: 5
I certify the patient meets the requirements for IP care: Yes
Code Status As Directed
Resuscitation Status: Full Code
04/29/24 16:56
PRN Pain Medication Management As Directed
May give lesser potent ordered pain med per pt: Yes
preference::
Protocol:: Medication orders for pain may be administered in a
manner that supports deferring to patient preference
when the pt is:
- Requesting an ordered lesser potent pain medication.
Least to most potent pain medications are defined
as: acetaminophen < NSAID < tramadol < opioids
(morphine, oxycodone, hydromorphone).
- Requesting a lesser dose of the same medication IF
ORDERED.
- Requesting a less intrusive route of administration
if both routes are prescribed by the provider (PO <
IV).
04/29/24 18:35
Add On- LAB Urgent
Tests Added?: PTT
04/29/24 19:07
Lactic Acid Q4H
Comment: CANCEL 2nd LACTIC ACID IF 1st LACTIC ACID IS LESS THAN 2
04/29/24 19:11
Oseltamivir Phosphate [Tamiflu] 75 mg .ROUTE .STK-MED ONE
04/29/24 20:08
Acetaminophen [Tylenol] 650 mg PO Q4HPRN PRN
Albuterol [ProAIR HFA INHALER] 2 puff INH R Q6HPRN PRN
Atorvastatin [Lipitor] 10 mg PO QPM
Budesonide [Pulmicort] 0.5 mg INH R BID
Dextrose 50%-Water [Dextrose 50% Syringe] 12.5 grams IV [id number] PRN
Glucagon [GlucaGen] 1 mg IM PRN PRN
Ondansetron Injectable [Zofran] 4 mg IV Q6HPRN PRN
04/29/24 20:08
VTE Contraindication Routine
VTE Mechanical Device Contraindication: Medical Contraindication
Pharmocologic Contraindication: Medical Contraindication
Comment: pt on coumadin
Activity As Directed
Activity Level: With Assistance
Bedside Glucose Monitoring As Directed
Frequency: AC&HS
Additional Instructions:: Change to q6h if pt on TPN, tube feeding or not eating
Intake/ Output As Directed
Frequency: Per unit guidelines
Precautions As Directed
Type of Precautions: Droplet
Comment: flu A +
Vital Signs As Directed
Frequency: q4h
Weight As Directed
Frequency: Daily
Pulse Ox/spot Check [RESP] Routine
Quantity: 1
Ot Eval And Treat Routine
Pt Eval And Treat Routine
Activity Level: As Tolerated
04/29/24 21:00
Warfarin [Coumadin] 2.5 mg PO SuTuWeThSa@1800
04/29/24 22:00
Bumetanide [Bumex] 2 mg IV BID@0800,1600
Gabapentin [Neurontin] 300 mg PO HS
Metoprolol Xl [Toprol Xl] 50 mg PO HS
Ropinirole [Requip] 0.25 mg PO HS
Temazepam [Restoril] 7.5 mg PO HS
04/30/24 04:36
Cardiovascular Evaluation IN AM
Complete Blood Count/With Diff IN AM
Comprehensive Metabolic Panel IN AM
Glycohemoglobin (HgbA1c) IN AM
PT/INR [Prothrombin Time] IN AM
04/30/24 07:30
Insulin Aspart Corrective Low [Novolog Flexpen-Low Resistance] See Protocol SC AC
04/30/24 08:00
Albuterol Nebs [Ventolin Nebules] 2.5 mg INH R BID
Calcium Carbonate/Vitamin D3 [Oscal 500 + D] 500 mg PO DAILY
Cyanocobalamin [Vitamin B-12] 2,500 mcg PO DAILY
Duloxetine Delayed Release [Cymbalta Delayed Release] 60 mg PO DAILY
Magnesium Oxide 500 mg PO DAILY
Metoprolol Xl [Toprol Xl] 100 mg PO DAILY
Multivitamin [Theragran] 1 tablet PO DAILY
Oseltamivir Phosphate [Tamiflu] 75 mg PO BID
Potassium Chloride [KCl] 20 meq PO DAILY
revefenacin [Yupelri] 175 mcg INH R DAILY
04/30/24 12:00
Digoxin [Lanoxin] 125 mcg PO DAILY@1200
04/30/24 15:00
Gabapentin [Neurontin] 600 mg PO DAILY@1500
05/01/24 04:57
Complete Blood Count/With Diff IN AM
Comprehensive Metabolic Panel IN AM
PT/INR [Prothrombin Time] IN AM
05/01/24 18:00
Warfarin [Coumadin] 5 mg PO MoFr@1800
05/02/24 06:00
Complete Blood Count/With Diff IN AM
Comprehensive Metabolic Panel IN AM
PT/INR [Prothrombin Time] IN AM
05/03/24 06:00
Complete Blood Count/With Diff IN AM
Comprehensive Metabolic Panel IN AM
PT/INR [Prothrombin Time] IN AM
Abnormal Lab Results
04/29/24 04/29/24 04/29/24
14:56 15:10 15:16
Hgb 16.6 H g/dL
(12.0-16.0)
Hct 51.3 H %
(37.0-47.0)
MCV 103.0 H fL
(81.0-99.0)
MCH 33.3 H pg
(27.0-31.0)
MCHC 32.4 L g/dL
(33.0-37.0)
RDW 18.5 H %
(11.5-14.5)
Abs Immat Gran (auto) 0.1 H 10^3/uL
(0-0.05)
Absolute Lymphs (auto) 0.3 L 10^3/uL
(1.2-3.4)
Absolute Monos (auto) 0.7 H 10^3/uL
(0.1-0.6)
Immature Gran % 1.0 H %
(0-0.5)
Neutrophils % 82.7 H %
(42.2-75.2)
Lymphocytes % 4.7 L %
(20.5-51.1)
Monocytes % 10.0 H %
(1.7-9.3)
PT 31.5 H Sec
(11.4-14.6)
APTT 44.0 H Sec
(23.4-35.0)
pH 7.48 H
(7.35-7.45)
pCO2 36 H mmHg
(32-35)
ABG O2 Sat (Measured) 98.1 H %
(94-98)
Chloride 93 L mmol/L
(98-107)
BUN 37 H mg/dl
(7-17)
Glucose 148 H mg/dl
(70-99)
Lactic Acid 2.9 H mmol/L
(0.7-2.0)
Total Bilirubin 3.2 H mg/dl
(0.2-1.3)
AST 40 H U/L
(14-36)
Alkaline Phosphatase 225 H U/L
(38-126)
04/29/24 14:56
04/29/24 14:56
Vital Signs
Initial and Last Documented VS:
Initial Vital Signs
Pulse Resp Pulse Ox
97 44 60
04/29/24 14:35 04/29/24 14:35 04/29/24 14:35
Last Documented Vital Signs
Temp Pulse Resp BP Pulse Ox
98.2 F 83 20 120/92 92
05/01/24 07:50 05/01/24 08:50 05/01/24 08:00 05/01/24 08:50 05/01/24 08:00
*Critical Care Note
Total Time (30-74mins, 75-104mins- exclusive of procedures): 35
Update Note
Update Note:
Patient presents to the Emergency Department with hypoxia and sleepiness
Number and Complexity of Problems Addressed at the Encounter
� Chronic conditions affecting care:
� Acute Exacerbation and/or Progression of Chronic Illness:
� Differential Diagnosis includes: but not limited to hf exac, pna, hypercarbia, copd exac, etc etc.
Amount and/or Complexity of Data to be Reviewed and Analyzed
� I performed an independent evaluation of and my interpretation is:
EKG:read by me, afib with rbbb, mild T wave flattening laterally
CT:
Xrays:
Laboratory Studies:
Other:
� Review of other/old records reveals: see below
� Clinical information was obtained by an independent historian: who is bedside, also Novmer 2023 admission, echo at that time Significantly dilated and hypokinetic RV.
Septal flattened in systole and diastole consistent with RV pressure and volume
overload.
Moderate to severe tricuspid regurgitation.
Severely elevated PASP. PASP is estimated at 80 mmHg assuming RA is 15 mmHg.
Biatrial enlargement.
TAVR is functioning normally.
Hyperdynamic left ventricular systolic function.
Compared to the prior study of 01/19/2024 the PASP is higher. Previously PASP
estimated at 50 mmHg.'
� Prescriptions/Medications Considered but not given:
� Further testing considered but not performed:
Risk of Complications and/or Morbidity or Mortality of Patient Management
� Social determinants of health affecting care:
� Discussion with other providers (PCP, Hospitalists, Consultants, etc):
� Escalation of care including admission/observation vs risk of discharge considered: 253pm Pt remains awake. at bedside. Bipap being applied, pox wnl, testing pending including abg.
Patient not hypercapnic via ABG. BNP elevated. In comparing today's weight to her dry weight which is recorded as 291, patient is 8 to 10 pounds greater today. She has been noncompliant with diuretic, notes increased le edema, sxs were sudden,
etc etc. Obviously because of symptoms multifactorial however I suspect heart failure with a strong contributing factor. Dobut PE espec given coumaden use.
343 pm Pt feeling much better, when asked how she feels, she states 'having hte time of my life' (with a grin), bipap in place. Pox wnl. Decreased wob. D/w pt recommendation for hospitalization, she is agreeable. TT sent to dr Ferreira.
412 pm pt starting to feel intol;erant of mask...rt to come bedside. of note, influenza +, tamiflu ordered.
ED Attending Note
-
Portions of this chart may have been created with voice recognition software.� Occasional wrong word or��sound alike� substitutions may have occurred due to the inherent limitations of voice recognition software.
Discharge Plan
Departure
Patient Disposition: Admit
Date of Disposition: 04/29/24
Time of Disposition: 15:45
Presentation/result/management discussed w/ accepting MD/DO: Hospitalist
Condition: Fair
Discharge Problem:
Acute respiratory failure with hypoxia
Interventions
Interventions:
*Risk Screen - Suicide Last Done: 04/29/24 20:26
*General Assessment Last Done: 04/29/24 14:42
*Neglect/Abuse Screening Last Done: 04/29/24 14:42
ED- Fall Risk Assessment Last Done: 04/29/24 14:42
*ED COVID-19 Vaccine History Last Done: 04/29/24 14:42
*Nursing Disposition Last Done: 04/29/24 20:18
ED- Cardiac Assessment Last Done: 04/29/24 14:42
ED- Pulmonary Assessment Last Done: 04/29/24 14:42
Discharge Date and Time
Discharge Date/Time: 04/29/24 20:19
[2024-04-29 15:03] LABS: % Eosinophils 0.6 % (0-6); % Lymphocytes 4.7 % (20.5-51.1); % Neutrophils 82.7 % (42.2-75.2); Absolute Basophils 0.1 10^3/uL (0-0.2); Absolute Immature Granulocytes 0.1 10^3/uL (0-0.05); Absolute Lymphocytes 0.3 10^3/uL (1.2-3.4); Absolute Monocytes 0.7 10^3/uL (0.1-0.6); Absolute Neutrophils 5.8 10^3/uL (1.4-6.5); Hematocrit 51.3 % (37.0-47.0); Hemoglobin 16.6 g/dL (12.0-16.0); Mean Corp Hgb Conc. 32.4 g/dL (33.0-37.0); Mean Corpuscular Hgb 33.3 pg (27.0-31.0); Mean Platelet Volume 10.1 fL (7.4-10.4); Nucleated Red Blood Cells % 0.3 %; Platelet Count 188 10^3/uL (130-400); Red Blood Cell Count 4.98 10^6/uL (4.20-5.40); Red Cell Dist. Width 18.5 % (11.5-14.5)
[2024-04-29 15:16] LABS: ALT (SGPT) 27 U/L (0-35); AST (SGOT) 40 U/L (14-36); Albumin 4.3 g/dl (3.5-5.0); Alkaline Phosphatase 225 U/L (38-126); Blood Urea Nitrogen 37 mg/dl (7-17); Calcium 9.4 mg/dl (8.4-10.2); Carbon Dioxide 28 mmol/L (22-30); Chloride 93 mmol/L (98-107); Estimated Creatinine Clearance 81 ml/min; Glucose 148 mg/dl (70-99); Potassium 4.1 mmol/L (3.5-5.1); Sodium 137 mmol/L (135-145); Total Bilirubin 3.2 mg/dl (0.2-1.3); eGFR > 60.00
[2024-04-29 15:29] LABS: NT-proBNP 2460 pg/ml; Troponin I 0.016 ng/ml
[2024-04-29 15:30] LABS: B.E. 3.5 mmol/L; HCO3 26.8 mmol/L (21-28); O2 Saturation % 98.1 % (94-98); PCO2 36 mmHg (32-35); PO2 90 mmHg (83-108); pH 7.48 (7.35-7.45)
[2024-04-29 15:40] LABS: PT 31.5 Sec (11.4-14.6)
[2024-04-29 15:47] LABS: Lactic Acid 2.9 mmol/L (0.7-2.0)
[2024-04-29 15:54] LABS: COVID-19 Antigen Negative (Negative)
--- NOTE | 2024-04-29 15:55 | HPS.HSE ---
Family Physician
-
Family Physician:
Chief Complaint
-
Shortness of breath, hypoxia, cough, rhinorrhea, headache
History of Present Illness
68-year-old female presents to the ER with her complaining of shortness of breath worsening over the past 2 days then starting with bodyaches cough headache rhinorrhea yesterday. She is on chronic 3 L nasal cannula for COPD. Her
noticed she was hypoxic and turning blue so we increased her oxygen to 4 L nasal cannula. She was noted to be hypoxic and in respiratory distress upon arrival in the ER very drowsy with O2 sat was 60% she was placed on BiPAP. There was attempt to
use Ventimask but patient was unable to tolerate with current sats at 81%. She noted that she has been noncompliant with her medications including diuretics and has developed increased lower extremity edema however her BNP is 2460 which appears to
be her baselines in January. In the ER she was noted to be Influenza A+. She does have a macular warm rash to both upper arms and back with skin being very dry all over her entire body. I advised her he may bring in some Aquaphor and
apply to those areas. She denies fever, chills, chest pain, palpitations, abdominal pain, nausea, vomiting, diarrhea, urinary symptoms.
She has past medical history akathisia with confusion unclear, CVA, brain meningioma right parietal incidental, right PRINCIPAL DATA ARCHITECT infarct, anxiety/agitation, chronic hypoxic hypercapnic respiratory failure, COPD, chronic heart failure preserved EF, CHAS
intolerant to CPAP, severe CHAS, severe pulm HTN, persistent A-fib on Coumadin, chronic erythrocytosis secondary to CHAS, DM2 with diabetic neuropathy, HTN, HLD, obesity, chronic elevated alk phos/elevated bilirubin with normal right upper quadrant
ultrasound, hyperthyroidism
The patient admission 03/03 - 03/08/2024 secondary to hypoxia akathisia with some confusion. It was recommended to avoid sedating medications. Cardiology initially treated patient with diuretics although did not fully explain patient's hypoxia they
recommended a right heart cath but patient was unable to tolerate procedure. She was unable to complete MRI for confusion because uncomfortable lying flat with agitation requiring Risperdal. Neurology evaluation regarding right parietal meningioma
states there is no significant mass effect neurosurgery reviewed and stated it was incidental finding. 2D echo revealed severe pulmonary HTN with PASP 80 mmHg, significantly dilated and hypokinetic RV, septal flattened in systole and diastole
consistent with RV overload, moderate to severe TR, TAVR is functioning normally, hyperdynamic LVSF
Medical History
Past Medical History
Past Medical History: Reports Other
Additional Past Medical History:
ASCVD / CVA
Aortic Stenosis
Chronic HFpEF
CHAS - Intolerant of PAP Therapy
COPD
Restrictive Lung Disease
Morbid Obesity
History of PE (s/p TKA)
DM-II
Hypertension
Osteoarthritis
Fibromyalgia
Anxiety / Depression
Past Surgical History: Reports Other
Additional Past Surgical History:
TAVR (04/30/22)
D&C x 2
Bilateral TKA
Septoplasty
Gastric Sleeve
Social History
Tobacco: Former Smoker (Quit in 1999. Approx 20 pack years total use.)
Alcohol: Occasional (Rare)
Drug: None
Personal:
Living: With Family
Family History
Family History: Other (Family history of arthritis.)
Allergies / Home Medications
Allergies reflects when Allergies were last updated in [employer].
Home Medications with original date entered in [employer]
Allergy/Medication List:
Allergies
Allergy/AdvReac Type Severity Reaction Status Date / Time
amoxicillin trihydrate Allergy patient Verified 04/29/24 15:04
[From Augmentin] states
severe
nausea and
intestinal
pain
cat dander Allergy Sinus Verified 04/29/24 15:04
congestion
cigarette smoke Allergy Positive Verified 04/29/24 15:04
skin test
to tobacco
dog dander Allergy Sinus Verified 04/29/24 15:04
congestion
grass pollen Allergy Sinus Verified 04/29/24 15:04
congestion,
cough
levofloxacin [From Levaquin] Allergy GI Symptoms Verified 04/29/24 15:04
mold Allergy Sinus Verified 04/29/24 15:04
congestion,
cough
Sulfa (Sulfonamide Allergy INTESTINAL Verified 04/29/24 15:04
Antibiotics) PAIN
tree and shrub pollen Allergy Sinus Verified 04/29/24 15:04
congestion,
cough
Home Medications
duloxetine 60 mg capsule,delayed release 60 mg PO DAILY Mental Health/Anxiety 01/11/14
atorvastatin 10 mg tablet 10 mg PO QPM High cholesterol 02/10/22
glipizide 2.5 mg tablet, extended release 24 hr 2.5 mg PO BID Diabetes 02/10/22
metformin 500 mg tablet 500 mg PO BID Diabetes 02/10/22
metoprolol succinate 50 mg tablet,extended release 24 hr 100 mg PO DAILY Blood pressure 02/10/22
revefenacin 175 mcg/3 mL solution for nebulization (Yupelri) 175 mcg inhalation R DAILY Lung/breathing issues 02/10/22
arformoterol 15 mcg/2 mL solution for nebulization (Brovana) 2 ml inhalation R BID Lung/breathing issues 04/02/22
budesonide 0.5 mg/2 mL suspension for nebulization 0.5 mg inhalation R BID Lung/breathing issues 04/02/22
cyanocobalamin (vitamin B-12) 2,500 mcg sublingual tablet (Vitamin B-12) 2,500 mcg sublingual DAILY Supplement 04/02/22
calcium 500 mg (as carbonate)-vitamin D3 5 mcg (200 unit) tablet (Oyster Shell Calcium-Vitamin D3) 500 mg PO DAILY Supplement 04/08/22
biotin 10,000 mcg chewable tablet (Hair, Skin and Nails (biotin)) 10,000 mcg PO DAILY Supplement 01/19/24
albuterol sulfate 90 mcg/actuation aerosol inhaler 2 puff inhalation R Q6HPRN PRN sob 03/03/24
digoxin 125 mcg (0.125 mg) tablet 125 mcg PO DAILY Heart Disease/Condition 03/03/24
metoprolol succinate 50 mg tablet,extended release 24 hr 50 mg PO HS Arrhythmia 03/03/24
torsemide 20 mg tablet 60 mg PO DAILY Fluid retention/Swelling 03/03/24
warfarin 2.5 mg tablet 2.5 mg PO SUTUWETHSA Blood Clot Prevention/Tx 03/03/24
magnesium oxide 400 mg (241.3 mg magnesium) tablet 400 mg PO DAILY #3 tabs 03/08/24
potassium chloride 20 mEq tablet,extended release 20 meq PO DAILY #3 tabs 03/08/24
gabapentin 300 mg capsule 300 mg PO HS 04/29/24
gabapentin 300 mg capsule 600 mg PO DAILY@1500 04/29/24
ropinirole 0.25 mg tablet 0.25 mg PO HS 04/29/24
temazepam 15 mg capsule 15 mg PO HS 04/29/24
therapeutic multivitamin 1 tab PO DAILY 04/29/24
warfarin 5 mg tablet 5 mg PO MOFR 04/29/24
Review of Systems
-
History Source: Patient and Family ( Jamaal at bedside)
A 12 point ROS was completed and negative except as noted: Yes
Constitutional: Denies Fever or Fatigue
EENT: Reports Runny Nose; Denies Sore Throat
Respiratory: Reports Cough and Trouble Breathing
Cardiac: Denies Chest Pain, Diaphoresis, Palpitations or Syncope
Abdomen/GI: Denies Abdominal Pain, Nausea, Vomiting, Diarrhea, Constipated, Bloody Stools or Black Stools
: Denies Dysuria, Frequency, Flank Pain, Incontinence, Difficulty Voiding or Urgency
Musculoskeletal: Reports Edema (Chronic bilateral lymphedema from legs to thighs +2); Denies Joint Pain or Joint Swelling
Skin: Reports Rash (Dry skin to bilateral upper arms and back red in color); Denies Itching
Neurological: Reports Headache; Denies Dizzy or Weakness
Endocrine: Reports No Symptoms
Hematologic/Lymphatic: Reports No Symptoms
Psych: Reports Calm
Physical Exam
Vital Signs
Vital Signs
Pulse Resp BP Pulse Ox
91 23 112/82 60
04/29/24 15:30 04/29/24 15:30 04/29/24 15:30 04/29/24 14:35
Physical Exam
General: Comfortable and Morbidly Obese; No Fever or Chills
HEENT: NormoCephalic, Anicteric, PERRLA, Smiley Conjunctivae and Oxygen (BiPAP in place)
Respiratory: Decreased Breath Sounds (Throughout all lung lui); No Wheezes, Rales or Rhonchi
Cardiac: S1/S2, Regular Rhythm, Murmur (2/6 systolic) and Peripheral Edema (Chronic lymphedema from thighs to lower legs +2); No Rub or Gallop
Breast: Deferred by me
GI: Soft, Non Tender, Non Distended, Normal Bowel Sounds and Other (Unable to palpate liver and spleen due to protuberant abdomen)
Rectal: Deferred by Provider
Genito-urinary: Deferred by me
Musculoskeletal: No Clubbing, No Cyanosis, Edema, Left Lower Extremity (Chronic lymphedema from upper thighs to lower leg with +2 edema nonpitting) and Edema, Right Lower Extremity (Chronic lymphedema from upper thighs to lower leg with +2 edema
nonpitting); No Edema, Left Upper Extremity or Edema, Right Upper Extremity
Skin: Warm, Dry and Rash (Dry skin to bilateral upper arms and back red in color); No Jaundice
Neuro: AO x 3 (Oriented to name, place [place], year, president, history, ), No Motor Deficits (While in bed), Cranial Nerves Intact and No Sensory Deficits; No Slurred Speech, Facial Droop, Tremors or Sedated
Psych: Calm
Laboratory Results
-
04/29/24 14:56
04/29/24 14:56
Laboratory Results
PT 31.5 Sec (11.4-14.6) H 04/29/24 15:10
INR 3.00 04/29/24 15:10
pH 7.48 (7.35-7.45) H 04/29/24 15:16
pCO2 36 mmHg (32-35) H 04/29/24 15:16
pO2 90 mmHg (83-108) 04/29/24 15:16
HCO3 26.8 mmol/L (21-28) 04/29/24 15:16
Lactic Acid 2.9 mmol/L (0.7-2.0) H 04/29/24 15:10
Total Bilirubin 3.2 mg/dl (0.2-1.3) H 04/29/24 14:56
AST 40 U/L (14-36) H 04/29/24 14:56
ALT 27 U/L (0-35) 04/29/24 14:56
Alkaline Phosphatase 225 U/L (38-126) H 04/29/24 14:56
Troponin I 0.016 ng/ml 04/29/24 14:56
Data Reviewed
-
Diagnostic Radiology: Report Reviewed by me
Lab Data: Labs Reviewed by me
Impression/Plan
-
Impression/plan:
Admit to IMU
#Acute on Chronic hypoxic hypercapnic respiratory failure requiring current BiPAP 2/2 INFLUENZA A POSITIVE
#Chronic hypercapnic respiratory failure: Due to severe obstructive sleep apnea as well as likely obesity hypoventilation syndrome
Symptoms of cough, shortness of breath, rhinorrhea, headache and bodyaches 2 days
60% RA, patient currently on BiPAP
Elevated lactate 2.9 will trend
-Influenza precautions
-Start Tamiflu 75 mg twice daily x 5 days
-Tylenol as needed
-Follow CBC, CMP
-PT/OT/case management consult
# Acute on chronic HFpEF
-Chronic leg lymphedema nonpitting
I/O, daily weights
Weight 136 kg> 129.5 kg 03/07/2024 wt GAIN 6.5 kg/14.3 LBS in 2 months
-Patient given 2 mg IV Bumex in ER with hold parameters
-HOLD torsemide 60 mg daily PO
-Will continue Bumex 2 mg IV twice daily with hold parameters
-Consult CBC cardiology
-Diet cholesterol-lowering 1800 ADA fluid restrict 40 ounce
CXR: Cardiomegaly with mild interstitial edema and bibasilar atelectasis
2D echo March: EF 70-75%, hyperdynamic LVSF
SEVERE PULM HTN with PASP 80 mmHg, significantly dilated and hypokinetic RV, septal flattened in systole and diastole consistent w/RV overload
moderate to severe TR,
TAVR is functioning normally
#AFib, persistent
-INR 3
-Continue Coumadin 2.5 mg tonight(patient on Coumadin 5 mg MOFR and Coumadin 2.5 mg on SUTUWETHSA)
-Continue digoxin 125 mcg p.o. daily with hold parameters
#HTN -benign
BP 112/82
-Continue digoxin 125 mcg p.o. daily with hold parameters
-Continue metoprolol 100 mg daily, 50 mg at bedtime with hold parameters
#DM type 2 with neuropathy
-Accu-Cheks with SSI, check HgbA1c
-Hold metformin 500 mg twice daily, hold glipizide 2.5 mg twice daily
-Continue gabapentin 600 mg daily, 300 mg at bedtime hold for sedation
#Hx TAVR
#Hx Severe pulm HTN PASP 80 mmHg 2/2 COPD
#COPD -no acute exacerbation
-Continue budesonide, Brovana, albuterol
# Confusion March admission with concern for akathisia-RESOLVED
# Hx multifactorial encephalopathy most likely a combination of toxic metabolic, sleep deprivation due to inadequate control over obstructive sleep apnea
-Patient today 04/29/2024 awake alert oriented x 3 to name, , place, year, president, history
#History of Right posterior cerebral artery infarct
-Continue atorvastatin 10 mg every afternoon, metoprolol succinate 100 mg daily, 50 mg at bedtime with hold parameters
#History CT head showing meningioma
#Right parietal convexity meningioma; neurology disagreed with the formal reading by radiology which suggested that there is significant mass effect -- neurologist does not see that present
March 2024 admission: Neurology evaluation regarding right parietal meningioma states there is no significant mass effect neurosurgery reviewed and stated it was
incidental finding.
#CHAS - intolerant to noninvasive mechanical ventilation/CPAP
#Chronic erythrocytosis 2/2 CHAS and most likely chronic hypoxia
RBC 4.98 stable
#HLD
-Continue atorvastatin 10 mg every afternoon
# Class class III obesity due to excess calorie consumption�BMI 49.9
-Affects all aspects of care
-Weight loss recommended
-Low-fat diabetic diet
#Chronic elevation of alk.phos
#Elevated bilirubin
Alk phos 225 > 166, T. bili 3.2 > 1.9 on 03/13/2024
#Liver lesion -- outpatient MRI is needed
#Subclinical hyperthyroidism
DVT prophylaxis
Patient currently on Coumadin with INR 3 will use SCDs
FULL CODE per patient
[2024-04-29] MEDS: BUMEX 2 MG IV (16:09)
--- NOTE | 2024-04-29 16:54 | W.PN.UPDATE ---
Update Note
Progress Note Update
This is an addendum to the H&P written by Yaquelin Martinez on 04/29/2024. Patient seen and examined independently with [employer]LL[employer]ESS[employer].
68-year-old female past medical history of atrial fibrillation on Coumadin, aortic stenosis status post TAVR, HFpEF, COPD, chronic hypoxemic respiratory failure on 3 L, obstructive sleep apnea, pulmonary hypertension, moderate to severe tricuspid
regurgitation, hypertension, hyperlipidemia, anxiety, presenting for cough, shortness of breath, body aches, rhinorrhea, headache for 2 days. She has been noncompliant with torsemide.
Patient arrived in respiratory distress. Recent increased lower extremity edema.
Patient recently hospitalized in March for hypoxemia and concern for volume overload although unclear. Cardiology recommended against right heart catheterization due to likely inability to tolerate the procedure.
Labs show cardiac BNP of 2400 from 3600 previously. Chest x-ray shows pulmonary edema. ABG does not show hypercarbia. Patient is influenza positive.
Patient with hypoxic respiratory failure secondary to acute CHF exacerbation/influenza. Patient comfortable on BiPAP. Bumex 2 mg twice daily. Tamiflu started. Cardiology consulted.
[2024-04-29] MEDS: TAMIFLU 75 MG PO (19:12)
[2024-04-29] MEDS: PULMICORT 0.5 MG INH (20:28)
--- NOTE | 2024-04-29 20:30 | PTCARENOTE ---
Received pt from ED at approx. 20:15. Pulled over to bed on stretcher. On BiPAP 12/5, 6L, SaO2 95%. AFib with BBB and PVCs on heart monitor. Admission completed with pt and at bedside. Purewick in place draining delilah urine. L arm #[address] Wounds noted, see assessment. Per , pt has not been taking diuretic pills at home because she doesn't like the side effects. stated that pt's pulse ox at home was in the 50s as he was trying to get her to the car to drive her
to the ED. Advised pt's spouse that in the future, it'd be best to call EMS if her pulse ox is that low, so that she doesn't cardiac arrest. Pt's stated that he 'knows CPR' and would 'rather do CPR than have EMS take her to [facility]ospital' due to previous bad experiences.
[2024-04-29] MEDS: COUMADIN 2.5 MG PO (21:15)
[2024-04-29] MEDS: REQUIP 0.25 MG PO (21:16)
[2024-04-29] MEDS: LIPITOR 10 MG PO (21:16)
[2024-04-29] MEDS: NEURONTIN 300 MG PO (21:16)
[2024-04-29] MEDS: TOPROL XL PO (21:16)
[2024-04-29] MEDS: BUMEX IV (21:22)
[2024-04-29 21:28] LABS: Glucose - Point of Care 89 mg/dl (70-99)
--- NOTE | 2024-04-29 21:30 | PTCARENOTE ---
PO metoprolol held per parameters. IV bumex given in ED at ~16:00, scheduled again for 22:00. House Provider Rosalba Lopez notified about soft BP. Received orders to hold bumex.
[2024-04-29] MEDS: RESTORIL 7.5 MG PO (23:13)
[2024-04-30] VITALS (18 sets, daily range): BP systolic 97–124; BP diastolic 51–90; PULSE 2–93; O2SAT 92; BMI 47.8
[2024-04-30 04:48] LABS: % Basophils 1.4 % (0-2); % Eosinophils 0.5 % (0-6); % Immature Granulocytes 0.5 % (0-0.5); % Lymphocytes 15.8 % (20.5-51.1); % Monocytes 18.9 % (1.7-9.3); % Neutrophils 62.9 % (42.2-75.2); Absolute Basophils 0.1 10^3/uL (0-0.2); Absolute Lymphocytes 0.7 10^3/uL (1.2-3.4); Absolute Monocytes 0.8 10^3/uL (0.1-0.6); Absolute Neutrophils 2.8 10^3/uL (1.4-6.5); Hematocrit 46.5 % (37.0-47.0); Mean Corp Hgb Conc. 32.3 g/dL (33.0-37.0); Mean Corpuscular Hgb 33.1 pg (27.0-31.0); Mean Corpuscular Volume 102.6 fL (81.0-99.0); Mean Platelet Volume 10.4 fL (7.4-10.4); Nucleated Red Blood Cells % 0 %; Platelet Count 165 10^3/uL (130-400); Red Blood Cell Count 4.53 10^6/uL (4.20-5.40); Red Cell Dist. Width 18.6 % (11.5-14.5); White Blood Cell Count 4.4 10^3/uL (4.8-10.8)
[2024-04-30 04:57] LABS: INR 2.65; PT 28.7 Sec (11.4-14.6)
[2024-04-30 05:24] LABS: ALT (SGPT) 23 U/L (0-35); AST (SGOT) 37 U/L (14-36); Albumin 3.3 g/dl (3.5-5.0); Alkaline Phosphatase 186 U/L (38-126); Blood Urea Nitrogen 31 mg/dl (7-17); Calcium 8.7 mg/dl (8.4-10.2); Carbon Dioxide 33 mmol/L (22-30); Chloride 96 mmol/L (98-107); Estimated Creatinine Clearance 105 ml/min; Glucose 98 mg/dl (70-99); HDL Cholesterol 20 mg/dl; LDL Cholesterol, Calculated 72 mg/dl; Potassium 3.2 mmol/L (3.5-5.1); Sodium 137 mmol/L (135-145); Total Bilirubin 2.4 mg/dl (0.2-1.3); Total Cholesterol 109 mg/dl (50-199); Total Protein 6.5 g/dl (6.3-8.2); Triglyceride 86 mg/dl (10-149); Very Low Density Lipoprotein 17 mg/dl (0-30); eGFR > 60.00
[2024-04-30] MEDS: PULMICORT 0.5 MG INH ×2 (07:16→17:56)
[2024-04-30] MEDS: VENTOLIN NEBULES 2.5 MG INH ×3 (07:16→17:57)
[2024-04-30 08:09] LABS: Glucose - Point of Care 84 mg/dl (70-99)
[2024-04-30] MEDS: NOVOLOG FLEXPEN-LOW RESISTANCE SC ×2 (08:10→17:25)
--- NOTE | 2024-04-30 08:25 | W.PN.HOSP.TC ---
Today's Communication/Plan
-
see bold
Assessment / Plan
Assessment / Plan
Gen: NAD, Awake and alert
Eyes: EOMI, PERRLA, no scleral icterus.
Neck: supple.
CV: irreg/irreg, +S1/S2, no m/r/g.
Resp: CTAB anteriorly, no rales, wheezes, or rhonchi.
Abd: +BS, soft, NT, ND
Skin: No rashes. 2+ B/L LE lymphedema
Neuro: CN 2-12 intact, non-focal.
Psych: Normal mood and affect.
04/29/24 15:10 Nasal Swab Influenza Types A & B (WILLIAM) - Final
Influenza A Positive, NAAT
CXR: Cardiomegaly with mild interstitial edema and bibasilar atelectasis.
Acute on Chronic hypoxemic and hypercapnic respiratory failure due to acute influenza A infection, underlying COPD/CHAS/OHS:
-cont BIPAP HS
-currently on 4.5L NC O2 (on 3L NC O2 at home)
-cont Tamiflu
Acute on chronic HFpEF:
-Chronic LE lymphedema
-s/p IV Bumex on admission
-daily wts, I/Os, FR
-cont BB
-c/s cards
Other problems:
Persistent AFib: Cont Coumadin/Dig/BB
Essential HTN: cont BB
DM2 with diabetic neuropathy: check a1c, SSI/accuchecks/diabetic diet, cont neurontin
h/o TAVR
Severe pulm HTN
Lactic acidosis, resolved
Hypokalemia: 40meq K, check Mg
h/o R post CVA: cont statin/couamdin
h/o R parietal meningioma
CHAS: intolerant of CPAP
HLD: cont statin
Morbid obesity due to excess calories
Minimally elevated LFTs
Liver lesion: outpatient MRI is needed
Subclinical hyperthyroidism
FULL/Coumadin
Total time spent on today's encounter was 50 minutes which included time spent in counseling the patient/family regarding diagnosis and treatment plan as listed above, goals of care, and symptom management. Case was discussed with nursing staff,
specialists, and care coordinators/case management. All labs and imaging personally reviewed by me. Remainder the time spent in detailed review of previous records, lab data, imaging, and other medical provider documentation.
Anticipated Discharge: 24 - 48 hours
Subjective/Interval History
-
Date of Service: April 30, 2024
Denies SOB. No new complaints.
Objective Data
-
Labs:
Laboratory Results
04/30/24
04:36
WBC 4.4 L
Hgb 15.0
Hct 46.5
Plt Count 165
PT 28.7 H
INR 2.65
Sodium 137
Potassium 3.2 L
Chloride 96 L
Carbon Dioxide 33 H
BUN 31 H
Creatinine 0.7
Glucose 98
Calcium 8.7
Total Bilirubin 2.4 H
AST 37 H
ALT 23
Alkaline Phosphatase 186 H
Vital Signs:
Vital Signs
Temp Pulse Resp BP Pulse Ox
98.1 F 106 21 108/53 87
04/30/24 07:55 04/30/24 08:00 04/30/24 08:00 04/30/24 08:00 04/30/24 08:00
I&O
04/29/24 04/30/24 05/01/24
06:59 06:59 06:59
Intake Total 580 / 580
Output Total 650 / 650
Balance -70 / -70
[2024-04-30] MEDS: TAMIFLU 75 MG PO ×2 (08:26→20:25)
[2024-04-30] MEDS: MAGNESIUM OXIDE 500 MG PO (08:26)
[2024-04-30] MEDS: OSCAL 500 + D 500 MG PO (08:26)
[2024-04-30] MEDS: KCL 20 MEQ PO (08:26)
[2024-04-30] MEDS: THERAGRAN 1 TABLET PO (08:26)
[2024-04-30] MEDS: CYMBALTA DELAYED RELEASE 60 MG PO (08:26)
[2024-04-30] MEDS: VITAMIN B-12 2500 MCG PO (08:26)
[2024-04-30] MEDS: DESENEX/MITRAZOL/ZEASORB 1 APPLIC TOPICAL ×2 (08:27→20:25)
[2024-04-30] MEDS: TOPROL XL 100 MG PO (08:30)
[2024-04-30] MEDS: KCL 40 MEQ PO (08:42)
[2024-04-30 09:03] LABS: Magnesium 1.6 mg/dl (1.6-2.3)
[2024-04-30 10:41] LABS: Glycohemoglobin (HgbA1c) 7.6 % (4.0-5.6)
[2024-04-30 11:14] LABS: Urine Albumin Negative (Neg - Trace); Urine Bilirubin Negative (Negative); Urine Character Clear (Clear); Urine Color Yellow; Urine Glucose Negative (Negative); Urine Ketone Negative (Negative); Urine Leukocyte Trace (Negative); Urine Nitrite Negative (Negative); Urine Occult Blood Negative (Negative); Urine Specific Gravity 1.025 (<1.030); Urine Urobilinogen Negative (Neg - 1+)
[2024-04-30 11:27] LABS: Urine Red Blood Cell 0-2 /HPF (0-2)
[2024-04-30 11:52] LABS: Glucose - Point of Care 163 mg/dl (70-99)
[2024-04-30] MEDS: LANOXIN 125 MCG PO (12:25)
[2024-04-30 13:39] LABS: Glucose - Point of Care 182 mg/dl (70-99)
--- NOTE | 2024-04-30 14:07 | CON.CAR ---
Consultation
Consultation Request
Date/Time Consultation Requested: 04/30/2024
Date/Time Consultation Performed: 04/30/2024
Requesting Provider: Hospitalist
Performing Provider: Brissa
Reason for Consultation: CHF
Medical History
-
Chief Complaint: CHF
History of Present Illness:
68-year-old female whose had 5 days of increased dyspnea, dyspnea on exertion who is transitioning care to Dr. Srini Alejandro from our office after being seen at [facility] for many years. She has an extensive past medical history including TAVR,
severe RV dysfunction and pulmonary hypertension, and BMI of 47.8. She is now flu a positive as well and is on BiPAP therapy on admission but now on nasal cannula.
04/29/24 15:10 Nasal Swab Influenza Types A & B (WILLIAM) - Final
Influenza A Positive, NAAT
CXR: Cardiomegaly with mild interstitial edema and bibasilar atelectasis.
Past medical history:
Heart failure preserved ejection fraction
Persistent AFib
Essential HTN
DM2
h/o TAVR
Severe pulm HTN
Lactic acidosis, resolved
Hypokalemia
h/o R post CVA
h/o R parietal meningioma
CHAS: intolerant of CPAP
Hyperlipidemia
BMI 47.8
Minimally elevated LFTs
Uncharacterized liver lesion
Subclinical hyperthyroidism
Past Medical History
Past Medical History: Arrhythmias and CHF
Past Surgical History: Cardiac
Social History
Tobacco: Non-Smoker
Alcohol: None
Drug: None
Personal:
Living: With Family
Employment: Not Employed
Family History
Family History: Reviewed & Not Pertinent
Allergies / Home Medications
Allergy/AdvReac Type Severity Reaction Status Date / Time
amoxicillin trihydrate Allergy patient Verified 04/29/24 15:04
[From Augmentin] states
severe
nausea and
intestinal
pain
cat dander Allergy Sinus Verified 04/29/24 15:04
congestion
cigarette smoke Allergy Positive Verified 04/29/24 15:04
skin test
to tobacco
dog dander Allergy Sinus Verified 04/29/24 15:04
congestion
grass pollen Allergy Sinus Verified 04/29/24 15:04
congestion,
cough
levofloxacin [From Levaquin] Allergy GI Symptoms Verified 04/29/24 15:04
mold Allergy Sinus Verified 04/29/24 15:04
congestion,
cough
Sulfa (Sulfonamide Allergy INTESTINAL Verified 04/29/24 15:04
Antibiotics) PAIN
tree and shrub pollen Allergy Sinus Verified 04/29/24 15:04
congestion,
cough
�Medication �Instructions �Recorded �Confirmed �Type
duloxetine 60 mg capsule,delayed 60 mg PO DAILY Mental 01/11/14 04/29/24 History
release Health/Anxiety
atorvastatin 10 mg tablet 10 mg PO QPM High cholesterol 02/10/22 04/29/24 History
glipizide 2.5 mg tablet, extended 2.5 mg PO BID Diabetes 02/10/22 04/29/24 History
release 24 hr
metformin 500 mg tablet 500 mg PO BID Diabetes 02/10/22 04/29/24 History
metoprolol succinate 50 mg 100 mg PO DAILY Blood pressure 02/10/22 04/29/24 History
tablet,extended release 24 hr
revefenacin 175 mcg/3 mL solution 175 mcg inhalation R DAILY 02/10/22 04/29/24 History
for nebulization (Yupelri) Lung/breathing issues
arformoterol 15 mcg/2 mL solution 2 ml inhalation R BID 04/02/22 04/29/24 History
for nebulization (Brovana) Lung/breathing issues
budesonide 0.5 mg/2 mL suspension 0.5 mg inhalation R BID 04/02/22 04/29/24 History
for nebulization Lung/breathing issues
cyanocobalamin (vitamin B-12) 2,500 mcg sublingual DAILY 04/02/22 04/29/24 History
2,500 mcg sublingual tablet Supplement
(Vitamin B-12)
calcium 500 mg (as 500 mg PO DAILY Supplement 04/08/22 04/29/24 History
carbonate)-vitamin D3 5 mcg (200
unit) tablet (Oyster Shell
Calcium-Vitamin D3)
biotin 10,000 mcg chewable tablet 10,000 mcg PO DAILY Supplement 01/19/24 04/29/24 History
(Hair, Skin and Nails (biotin))
albuterol sulfate 90 mcg/actuation 2 puff inhalation R Q6HPRN PRN sob 03/03/24 04/29/24 History
aerosol inhaler
digoxin 125 mcg (0.125 mg) tablet 125 mcg PO DAILY Heart 03/03/24 04/29/24 History
Disease/Condition
metoprolol succinate 50 mg 50 mg PO HS Arrhythmia 03/03/24 04/29/24 History
tablet,extended release 24 hr
torsemide 20 mg tablet 60 mg PO DAILY Fluid 03/03/24 04/29/24 History
retention/Swelling
warfarin 2.5 mg tablet 2.5 mg PO SUTUWETHSA Blood Clot 03/03/24 04/29/24 History
Prevention/Tx
magnesium oxide 400 mg (241.3 mg 400 mg PO DAILY #3 tabs 03/08/24 04/29/24 Rx
magnesium) tablet
potassium chloride 20 mEq 20 meq PO DAILY #3 tabs 03/08/24 04/29/24 Rx
tablet,extended release
gabapentin 300 mg capsule 300 mg PO HS Pain 04/29/24 04/29/24 History
gabapentin 300 mg capsule 600 mg PO DAILY@1500 Pain 04/29/24 04/29/24 History
ropinirole 0.25 mg tablet 0.25 mg PO HS movement 04/29/24 04/29/24 History
temazepam 15 mg capsule 15 mg PO HS Sleep 04/29/24 04/29/24 History
therapeutic multivitamin 1 tab PO DAILY Supplement 04/29/24 04/29/24 History
warfarin 5 mg tablet 5 mg PO MOFR Blood Clot 04/29/24 04/29/24 History
Prevention/Tx
Review of Systems
-
All other systems: Negative unless noted
Respiratory: Cough and Trouble Breathing
Cardiac: No Symptoms
Abdomen/GI: No Symptoms
: No Symptoms
Physical Exam
Vital Signs
Temp Pulse Resp BP Pulse Ox
98.0 F 80 20 98/53 91
04/30/24 11:40 04/30/24 12:50 04/30/24 12:50 04/30/24 12:01 04/30/24 12:50
Lab Results
04/30/24 04:36
04/30/24 04:36
Troponin I 0.016 ng/ml 04/29/24 14:56
Vir-R-Srwcbkmsuzw Pept 2460 pg/ml 04/29/24 14:56
Physical Exam
General: Well Developed, Well Nourished and No Apparent Distress
HEENT: Normocephalic and Anicteric
Respiratory: Crackles
Cardiac: Irregular Rhythm
Breast: Deferred by me
GI: Soft, Non Tender and Distended
Rectal: Deferred by Provider
Musculoskeletal: No Clubbing and No Cyanosis
Skin: Warm, Dry and Rash
Neuro: Awake, Alert and Oriented
Hematologic/Lymphatic: No Lymphadenopathy
Psych: Calm
Impression / Plan
-
Impression:
Chronic heart failure preserved ejection fraction
Acute flu A
Persistent AFib
Essential HTN
DM2
h/o TAVR
Severe pulm HTN
Lactic acidosis
Hypokalemia
h/o R post CVA
h/o R parietal meningioma
CHAS: intolerant of CPAP
Mixed hyperlipidemia
BMI 47.8
Minimally elevated LFTs
Unspecified liver lesion
Subclinical hyperthyroidism
Recommendations:
Continue IV Bumex
Continue Tamiflu
Weaning oxygen
Has follow-up already arranged with Dr. Alejandro in our office
Already has transition to our Coumadin clinic
Rate controlled atrial fibrillation
Follow daily weights
Follow renal function
Continue BiPAP at night
Will follow with you
Data Reviewed
-
EKG: Tracing Personally Visualized and interpreted
Medical Tests (Nuc Med, Echo etc): Image Personally Visualized and interpreted
Labs: Labs Reviewed by me
Old Records: Reviewed
[2024-04-30] MEDS: NOVOLOG FLEXPEN-LOW RESISTANCE 1 UNITS SC (14:09)
[2024-04-30] MEDS: NEURONTIN 600 MG PO (16:02)
--- NOTE | 2024-04-30 16:19 | PTCARENOTE ---
Assumed care of patient at beginning of this shift from previous RN with bipap in use. RT changed patient to 3L n/c, which is her baseline. POx dropped to 87-88%; increased to 4L n/c. POx stayed 88-89%; increased to 5L n/c with POx 90-91%. Patient
worked with PT/OT and was OOB at bedside for a few steps, per therapists. This RN noted POx 85% but patient was back in bed at that point with PT/OT at bedside. They stated that POx was stable until patient back in bed, then dropped to 85%. Patient
recovered back to 90-91% after a few minutes; she was asymptomatic. Remains afib on monitor with BBB and occasional PVCs. See worklist for full assessment.
--- NOTE | 2024-04-30 16:55 | CM ---
Patient seen at bedside with .
IA completed
Dx: hypoxic resp failure +influenza A
Patient lives in a multi-story home with , 2 steps to enter, 1st floor set up
PLOF: Independent
DME: Walker, cane, oxygen (on 3L oxygen at home), crutches
Has had [facility] in past, [facility] in past
PT rec Home Health
Referral added [facility] in [facility]
PCP: Sanjay Carrera
Pharmacy: [facility]
Plan: home, VN
[2024-04-30] MEDS: LIPITOR 10 MG PO (17:25)
[2024-04-30] MEDS: COUMADIN 2.5 MG PO (17:25)
[2024-04-30 17:34] LABS: Glucose - Point of Care 139 mg/dl (70-99)
[2024-04-30] MEDS: RESTORIL 7.5 MG PO (20:25)
[2024-04-30] MEDS: NEURONTIN 300 MG PO (20:25)
[2024-04-30] MEDS: TOPROL XL 50 MG PO (20:25)
[2024-04-30] MEDS: REQUIP 0.25 MG PO (20:26)
[2024-04-30 21:40] LABS: Glucose - Point of Care 196 mg/dl (70-99)
--- NOTE | 2024-04-30 22:44 | PTCARENOTE ---
assumed care of patient. pt is AAOx3 but forgetful. pt on 5L 90%. lungs course with wheezes, dry cough noted. PW intact. desenex applied to groin and folds. generalized bruises and scabs. a-fib on the monitor with BBC. bed alarm on. care ongoing.
[2024-05-01] VITALS (9 sets, daily range): BP systolic 103–122; BP diastolic 58–92; PULSE 2–76; BMI 47.1
--- NOTE | 2024-05-01 05:11 | PTCARENOTE ---
pt wore bipap mask from [id number] without issues. placed back on 5L NC for the day.
[2024-05-01 05:16] LABS: % Basophils 1.5 % (0-2); % Eosinophils 2.7 % (0-6); % Immature Granulocytes 0.5 % (0-0.5); % Monocytes 19.2 % (1.7-9.3); % Neutrophils 46.1 % (42.2-75.2); Absolute Basophils 0.1 10^3/uL (0-0.2); Absolute Eosinophils 0.1 10^3/uL (0-0.7); Absolute Lymphocytes 1.2 10^3/uL (1.2-3.4); Absolute Monocytes 0.8 10^3/uL (0.1-0.6); Absolute Neutrophils 1.9 10^3/uL (1.4-6.5); Hematocrit 46.3 % (37.0-47.0); Hemoglobin 14.8 g/dL (12.0-16.0); Mean Corpuscular Hgb 33.5 pg (27.0-31.0); Mean Corpuscular Volume 104.8 fL (81.0-99.0); Nucleated Red Blood Cells % 0 %; Platelet Count 159 10^3/uL (130-400); Red Blood Cell Count 4.42 10^6/uL (4.20-5.40); Red Cell Dist. Width 18.4 % (11.5-14.5); White Blood Cell Count 4.1 10^3/uL (4.8-10.8)
[2024-05-01 05:30] LABS: INR 2.75; PT 29.4 Sec (11.4-14.6)
[2024-05-01 05:45] LABS: ALT (SGPT) 23 U/L (0-35); AST (SGOT) 41 U/L (14-36); Albumin 3.3 g/dl (3.5-5.0); Alkaline Phosphatase 189 U/L (38-126); Blood Urea Nitrogen 30 mg/dl (7-17); Calcium 8.8 mg/dl (8.4-10.2); Carbon Dioxide 30 mmol/L (22-30); Chloride 98 mmol/L (98-107); Estimated Creatinine Clearance 105 ml/min; Glucose 121 mg/dl (70-99); Potassium 3.7 mmol/L (3.5-5.1); Sodium 136 mmol/L (135-145); Total Bilirubin 1.8 mg/dl (0.2-1.3); Total Protein 6.5 g/dl (6.3-8.2); eGFR > 60.00
[2024-05-01] MEDS: NOVOLOG FLEXPEN-LOW RESISTANCE SC ×2 (07:29→12:46)
[2024-05-01 07:37] LABS: Glucose - Point of Care 95 mg/dl (70-99)
[2024-05-01] MEDS: PULMICORT 0.5 MG INH ×2 (07:46→19:27)
[2024-05-01] MEDS: VENTOLIN NEBULES 2.5 MG INH ×2 (07:46→19:27)
[2024-05-01] MEDS: MAGNESIUM OXIDE 500 MG PO (08:49)
[2024-05-01] MEDS: VITAMIN B-12 2500 MCG PO (08:49)
[2024-05-01] MEDS: KCL 20 MEQ PO (08:49)
[2024-05-01] MEDS: OSCAL 500 + D 500 MG PO (08:49)
[2024-05-01] MEDS: DESENEX/MITRAZOL/ZEASORB 1 APPLIC TOPICAL ×2 (08:49→21:04)
[2024-05-01] MEDS: THERAGRAN 1 TABLET PO (08:50)
[2024-05-01] MEDS: TOPROL XL 100 MG PO (08:50)
[2024-05-01] MEDS: TAMIFLU 75 MG PO ×2 (08:50→21:04)
[2024-05-01] MEDS: CYMBALTA DELAYED RELEASE 60 MG PO (08:50)
--- NOTE | 2024-05-01 09:38 | W.PN.HOSP.TC ---
Today's Communication/Plan
-
IV Bumex
Assessment / Plan
Assessment / Plan
Gen: NAD, Awake and alert
Eyes: EOMI, PERRLA, no scleral icterus.
Neck: supple.
CV: irreg/irreg, +S1/S2, no m/r/g.
Resp: CTAB anteriorly, no rales, wheezes, or rhonchi.
Abd: +BS, soft, NT, ND
Skin: No rashes. 2+ B/L LE lymphedema
Neuro: CN 2-12 intact, non-focal.
Psych: Normal mood and affect.
04/29/24 15:10 Nasal Swab Influenza Types A & B (WILLIAM) - Final
Influenza A Positive, NAAT
CXR: Cardiomegaly with mild interstitial edema and bibasilar atelectasis.
A/P:
Acute on Chronic hypoxemic and hypercapnic respiratory failure due to acute influenza A infection, underlying COPD/CHAS/OHS:
-cont BIPAP HS
-currently on 4 L NC O2 (on 3L NC O2 at home)
-cont Tamiflu
Acute on chronic HFpEF:
-Chronic LE lymphedema
-s/p IV Bumex on admission--> continue IV as per cardiology recommendations
-daily wts, I/Os, FR
-cont BB
-c/s cards
Other problems:
Persistent AFib: Cont Coumadin/Dig/BB. INR 2.75 today
Essential HTN: cont BB
DM2 with diabetic neuropathy: check a1c, SSI/accuchecks/diabetic diet, cont neurontin
h/o TAVR
Severe pulm HTN
Lactic acidosis, resolved
Hypokalemia: K3.7 today
h/o R post CVA: cont statin/couamdin
h/o R parietal meningioma
CHAS: intolerant of CPAP
HLD: cont statin
Morbid obesity due to excess calories
Minimally elevated LFTs
Liver lesion: outpatient MRI is needed
Subclinical hyperthyroidism
FULL/Coumadin
Anticipated Discharge: 24 - 48 hours
Subjective/Interval History
-
Date of Service: May 01, 2024
Patient with less shortness of breath overall, no chest pain. Blood pressure stable. Afebrile. On supplemental oxygen
Objective Data
-
Labs:
Laboratory Results
05/01/24
04:57
WBC 4.1 L
Hgb 14.8
Hct 46.3
Plt Count 159
PT 29.4 H
INR 2.75
Sodium 136
Potassium 3.7
Chloride 98
Carbon Dioxide 30
BUN 30 H
Creatinine 0.7
Glucose 121 H
Calcium 8.8
Total Bilirubin 1.8 H
AST 41 H
ALT 23
Alkaline Phosphatase 189 H
Vital Signs:
Vital Signs
Temp Pulse Resp BP Pulse Ox
98.2 F 83 20 120/92 92
05/01/24 07:50 05/01/24 08:50 05/01/24 08:00 05/01/24 08:50 05/01/24 08:00
I&O
04/30/24 05/01/24 05/02/24
06:59 06:59 06:59
Intake Total 580 / 580
Output Total 650 / 650 1000 / 1000
Balance -70 / -70 -1000 / -1000
--- NOTE | 2024-05-01 10:49 | W.PN.CARDCBS ---
Today's Communication / Plan
-
Continue IV Bumex. Follow daily wts, Is and Os and cr
Wt continues to come down.
Hopeful change to PO diuretics next 24-48 hrs. She feels improved
Cont pulm toilet. She is on 3L O2 at home.
Cont BiPAP HS
Continue Tamiflu
Weaning oxygen
Remains in rate controlled persistent AFib.
Cont coumadin. INR therapeutic.
She is transitioning to care to [facility] and has follow-up already arranged with Dr. Alejandro in our office
She has already has transition to our Coumadin clinic
Discussed with family at bedside.
Impression / Plan
-
.
Impression:
Multifactorial dyspnea
Acute on chronic heart failure preserved ejection fraction
Acute flu A
Persistent AFib on coumadin
Essential HTN
DM2
Hx TAVR
Severe pulm HTN
Lactic acidosis
Hypokalemia improved
Hx R post CVA
Hx R parietal meningioma
CHAS: intolerant of CPAP , 3L at home
Mixed hyperlipidemia
BMI 47.8
Minimally elevated LFTs
Unspecified liver lesion
Subclinical hyperthyroidism
Echo Mar 2024: Hyperdynamic left ventricular systolic function. EF 70-75% with dilated and hypokinetic RV. septal flattened in systole and diastole consistent with RV pressure and volume overload. Moderate to severe tricuspid regurgitation. Severely
elevated PASP. PASP is estimated at 80 mmHg. Biatrial enlargement. TAVR is functioning normally. Compared to the prior study of 01/19/2024 the PASP is higher. Previously PASP 50 mmHg.
Plan:
Continue IV Bumex. Follow daily wts, Is and Os and cr
Wt continues to come down.
Hopeful change to PO diuretics next 24-48 hrs. She feels improved
Cont pulm toilet. She is on 3L O2 at home.
Cont BiPAP HS
Continue Tamiflu
Weaning oxygen
Remains in rate controlled persistent AFib.
Cont coumadin. INR therapeutic.
She is transitioning to care to [facility] and has follow-up already arranged with Dr. Alejandro in our office
She has already has transition to our Coumadin clinic
Discussed with family at bedside.
Progress Note - [place]
Subjective
Date of Service: May 01, 2024
Pt seen and examined. No complaints. No chest pain or shortness of breath.
Objective
Labs:
05/01/24 04:57
05/01/24 04:57
Labs
Hgb 14.8 g/dL (12.0-16.0) 05/01/24 04:57
Hct 46.3 % (37.0-47.0) 05/01/24 04:57
Plt Count 159 10^3/uL (130-400) 05/01/24 04:57
PT 29.4 Sec (11.4-14.6) H 05/01/24 04:57
INR 2.75 05/01/24 04:57
APTT 44.0 Sec (23.4-35.0) H 04/29/24 15:10
APTT Cancelled 04/29/24 15:10
Sodium 136 mmol/L (135-145) 05/01/24 04:57
Potassium 3.7 mmol/L (3.5-5.1) 05/01/24 04:57
BUN 30 mg/dl (7-17) H 05/01/24 04:57
Creatinine 0.7 mg/dL (0.6-1.0) 05/01/24 04:57
Glucose 121 mg/dl (70-99) H 05/01/24 04:57
Troponins
04/29/24
14:56
Troponin I 0.016
Vital Signs and I&O:
Vital Signs
Temp Pulse Resp BP Pulse Ox
98.2 F 83 20 120/92 92
05/01/24 07:50 05/01/24 08:50 05/01/24 08:00 05/01/24 08:50 05/01/24 08:00
Vital Signs
Temp Pulse Resp BP Pulse Ox
98.2 F 83 20 120/92 92
05/01/24 07:50 05/01/24 08:50 05/01/24 08:00 05/01/24 08:50 05/01/24 08:00
Intake & Output
04/29/24 04/30/24 05/01/24 05/02/24
06:59 06:59 06:59 06:59
Intake Total 580 / 580
Output Total 650 / 650 1000 / 1000
Balance -70 / -70 -1000 / -1000
Physical Exam
Physical Exam
General: No acute distress, AAOX3
Neck: Negative JVD
Heart: Irregularly irregular, Negative S3 positive S1/S2, Negative S4, No murmur
Lungs: CTA b/l, negative wheezes/rales/rhonchi
Abd: Morbid obesity. Positive BS, NT/ND, neg rebound/rigidity/guarding
Ext: Negative cyanosis/clubbin. Positive lymphedema
Neuro: nonfocal
--- NOTE | 2024-05-01 10:57 | VNURNOTE ---
Chart reviewed. Home Health Liaison spoke with patient's spouse to discuss [facility] nurse/therapy, visits, schedule and homebound status. He is agreeable and understands that visits at home will be 2-3 x per week to assess and teach medical management.
patient has had [facility] in the past.
Spouse is aware that [facility] will contact them for start of care in 1-2 days after discharge from . Confirmed with spouse that patient has a scale at home and home 02. [facility] referral updated in [facility].
[2024-05-01] MEDS: SPIRIVA RESPIMAT 2.5 MCG 2 PUFF INH (11:44)
[2024-05-01] MEDS: LANOXIN 125 MCG PO (12:41)
[2024-05-01 12:57] LABS: Glucose - Point of Care 119 mg/dl (70-99)
--- NOTE | 2024-05-01 13:10 | TRANSFER ---
Pt will be transferred to , report given to [facility]. Pt requests to eat lunch before moving as it is on the way.
--- NOTE | 2024-05-01 16:09 | CM ---
CM reviewed chart- pt transferred out of IMU today
Therapy continues to follow with VN recs- ambulation assessment not completed due to respiratory status
Pt continues with elevated O2 needs and bipap
CM will continue to follow for dc planning
Discharge Disposition- anticipate home with VN, follow bipap and for higher needs
[2024-05-01] MEDS: BUMEX 2 MG IV (16:10)
[2024-05-01] MEDS: NEURONTIN 600 MG PO (16:10)
[2024-05-01 16:38] LABS: Glucose - Point of Care 163 mg/dl (70-99)
[2024-05-01] MEDS: LIPITOR 10 MG PO (18:56)
[2024-05-01] MEDS: NOVOLOG FLEXPEN-LOW RESISTANCE 1 UNITS SC (18:56)
[2024-05-01] MEDS: COUMADIN 5 MG PO (18:58)
[2024-05-01] MEDS: REQUIP 0.25 MG PO (21:21)
[2024-05-01] MEDS: RESTORIL 7.5 MG PO (21:21)
[2024-05-01] MEDS: NEURONTIN 300 MG PO (21:21)
[2024-05-01] MEDS: TOPROL XL 50 MG PO (21:24)
[2024-05-01 21:29] LABS: Glucose - Point of Care 177 mg/dl (70-99)
[2024-05-02 03:17] VITALS: BP 112/60
[2024-05-02 06:00] VITALS: BMI 47.7
[2024-05-02] MEDS: VENTOLIN NEBULES 2.5 MG INH ×2 (07:14→20:14)
[2024-05-02] MEDS: PULMICORT 0.5 MG INH ×2 (07:14→20:14)
[2024-05-02] MEDS: SPIRIVA RESPIMAT 2.5 MCG 2 PUFF INH (07:14)
[2024-05-02 07:30] VITALS: BP 112/73
[2024-05-02 08:13] LABS: % Basophils 1.2 % (0-2); % Immature Granulocytes 0.4 % (0-0.5); % Lymphocytes 35.3 % (20.5-51.1); % Monocytes 10.4 % (1.7-9.3); % Neutrophils 49.7 % (42.2-75.2); Absolute Basophils 0.1 10^3/uL (0-0.2); Absolute Eosinophils 0.2 10^3/uL (0-0.7); Absolute Lymphocytes 1.8 10^3/uL (1.2-3.4); Absolute Monocytes 0.5 10^3/uL (0.1-0.6); Absolute Neutrophils 2.5 10^3/uL (1.4-6.5); Hematocrit 49.1 % (37.0-47.0); Hemoglobin 15.8 g/dL (12.0-16.0); Mean Corp Hgb Conc. 32.2 g/dL (33.0-37.0); Mean Corpuscular Hgb 33.3 pg (27.0-31.0); Mean Corpuscular Volume 103.4 fL (81.0-99.0); Mean Platelet Volume 10.9 fL (7.4-10.4); Nucleated Red Blood Cells % 0 %; Platelet Count 186 10^3/uL (130-400); Red Blood Cell Count 4.75 10^6/uL (4.20-5.40); Red Cell Dist. Width 17.8 % (11.5-14.5)
[2024-05-02 08:21] LABS: INR 2.53; PT 27.7 Sec (11.4-14.6)
[2024-05-02 08:31] LABS: Glucose - Point of Care 79 mg/dl (70-99)
[2024-05-02 08:43] LABS: ALT (SGPT) 26 U/L (0-35); AST (SGOT) 44 U/L (14-36); Albumin 3.8 g/dl (3.5-5.0); Alkaline Phosphatase 220 U/L (38-126); Blood Urea Nitrogen 27 mg/dl (7-17); Calcium 8.8 mg/dl (8.4-10.2); Carbon Dioxide 31 mmol/L (22-30); Chloride 98 mmol/L (98-107); Estimated Creatinine Clearance 105 ml/min; Glucose 119 mg/dl (70-99); Potassium 3.7 mmol/L (3.5-5.1); Sodium 139 mmol/L (135-145); Total Bilirubin 1.8 mg/dl (0.2-1.3); Total Protein 7.3 g/dl (6.3-8.2); eGFR > 60.00
[2024-05-02] MEDS: NOVOLOG FLEXPEN-LOW RESISTANCE SC ×2 (08:57→17:08)
[2024-05-02] MEDS: BUMEX 2 MG IV ×2 (08:57→15:45)
[2024-05-02] MEDS: VITAMIN B-12 2500 MCG PO (08:58)
[2024-05-02] MEDS: TAMIFLU 75 MG PO ×2 (08:58→20:42)
[2024-05-02] MEDS: OSCAL 500 + D 500 MG PO (08:58)
[2024-05-02] MEDS: TOPROL XL 100 MG PO (08:59)
[2024-05-02] MEDS: CYMBALTA DELAYED RELEASE 60 MG PO (08:59)
[2024-05-02] MEDS: MAGNESIUM OXIDE 500 MG PO (08:59)
[2024-05-02] MEDS: KCL 20 MEQ PO (08:59)
[2024-05-02] MEDS: THERAGRAN 1 TABLET PO (08:59)
--- NOTE | 2024-05-02 09:01 | W.PN.HOSP.TC ---
Addendum entered and electronically signed by Dany Reyes MD 05/02/24 17:29:
updated over the phone today
Original Note:
Today's Communication/Plan
-
Diuretics. Incentive spirometry. Oxygen titration
Assessment / Plan
Assessment / Plan
Gen: NAD, Awake and alert
Eyes: EOMI, PERRLA, no scleral icterus.
Neck: supple.
CV: irreg/irreg, +S1/S2, no m/r/g.
Resp: CTAB anteriorly, no rales, wheezes, or rhonchi.
Abd: +BS, soft, NT, ND
Skin: No rashes. 2+ B/L LE lymphedema
Neuro: CN 2-12 intact, non-focal.
Psych: Normal mood and affect.
04/29/24 15:10 Nasal Swab Influenza Types A & B (WILLIAM) - Final
Influenza A Positive, NAAT
CXR: Cardiomegaly with mild interstitial edema and bibasilar atelectasis.
A/P:
Acute on Chronic hypoxemic and hypercapnic respiratory failure due to acute influenza A infection, underlying COPD/CHAS/OHS:
-cont BIPAP HS
-currently on 6 L NC O2 (on 3L NC O2 at home)--> will titrate down oxygen as able
-cont Tamiflu
-Incentive spirometry
-Continue PT OT eval
Acute on chronic HFpEF:
-Chronic LE lymphedema
-s/p IV Bumex on admission--> changing to oral torsemide 40 mg twice a day today as per cardiology recommendations
-daily wts, I/Os, FR
-cont BB
-c/s cards
Other problems:
Persistent AFib: Cont Coumadin/Dig/BB. INR 2.53 today
Essential HTN: cont BB
DM2 with diabetic neuropathy: check a1c, SSI/accuchecks/diabetic diet, cont neurontin
h/o TAVR
Severe pulm HTN
Lactic acidosis, resolved
Hypokalemia: K3.7 today
h/o R post CVA: cont statin/couamdin
h/o R parietal meningioma
CHAS: intolerant of CPAP
HLD: cont statin
Morbid obesity due to excess calories
Minimally elevated LFTs
Liver lesion: outpatient MRI is needed
Subclinical hyperthyroidism
FULL/Coumadin
Anticipated Discharge: 24 - 48 hours
Subjective/Interval History
-
Date of Service: May 02, 2024
Patient feels better overall. Less shortness of breath. No chest pain. Still on supplemental oxygen.
Objective Data
-
Labs:
Laboratory Results
05/02/24
07:44
WBC 5.0
Hgb 15.8
Hct 49.1 H
Plt Count 186
PT 27.7 H
INR 2.53
Sodium 139
Potassium 3.7
Chloride 98
Carbon Dioxide 31 H
BUN 27 H
Creatinine 0.7
Glucose 119 H
Calcium 8.8
Total Bilirubin 1.8 H
AST 44 H
ALT 26
Alkaline Phosphatase 220 H
Vital Signs:
Vital Signs
Temp Pulse Resp BP Pulse Ox
97.8 F 84 20 112/73 93
05/02/24 07:30 05/02/24 07:30 05/02/24 07:30 05/02/24 07:30 05/02/24 07:30
I&O
05/01/24 05/02/24 05/03/24
06:59 06:59 06:59
Intake Total 480 / 480
Output Total 1000 / 1000
Balance -1000 / -1000 480 / 480
[2024-05-02] MEDS: DESENEX/MITRAZOL/ZEASORB 1 APPLIC TOPICAL ×2 (09:10→20:43)
--- NOTE | 2024-05-02 09:54 | W.PN.CARDCBS ---
Addendum entered and electronically signed by Froylan Mercado, 05/02/24 12:39:
.
Wt stable
Transition to Torsemide 40 mg PO BID
Outpt follow up was already scheduled with Dr Alejandro
Please recall if needed
Original Note:
Today's Communication / Plan
-
Possible transition to oral diuretics pending wt.
Impression / Plan
-
.
Impression:
Multifactorial dyspnea
Acute on chronic heart failure preserved ejection fraction
Acute flu A
Persistent AFib on coumadin
Essential HTN
DM2
Hx TAVR
Severe pulm HTN
Lactic acidosis
Hypokalemia improved
Hx R post CVA
Hx R parietal meningioma
CHAS: intolerant of CPAP , 3L at home
Mixed hyperlipidemia
BMI 47.8
Minimally elevated LFTs
Unspecified liver lesion
Subclinical hyperthyroidism
Echo Mar 2024: Hyperdynamic left ventricular systolic function. EF 70-75% with dilated and hypokinetic RV. septal flattened in systole and diastole consistent with RV pressure and volume overload. Moderate to severe tricuspid regurgitation. Severely
elevated PASP. PASP is estimated at 80 mmHg. Biatrial enlargement. TAVR is functioning normally. Compared to the prior study of 01/19/2024 the PASP is higher. Previously PASP 50 mmHg.
Plan:
Receiving IV Bumex. Follow daily wts, Is and Os and cr
Wt up slightly with transfer to another floor. Not sure that this is accurate. She will get reweighed. If wt is stable then can transition to oral diuretic from cardiac standpoint.
She has been feeling improved
Cont pulm toilet. She is on 3L O2 at home.
Cont BiPAP HS
Continue Tamiflu
Weaning oxygen
Remains in rate controlled persistent AFib.
Cont coumadin. INR has been therapeutic.
She is transitioning to care to [facility] and has follow-up already arranged with Dr. Alejandro in our office
She has already has transition to our Coumadin clinic
Discussed with nursing
Progress Note - Communications Associate
Subjective
Date of Service: May 02, 2024
Pt seen and examined. No complaints. No chest pain or shortness of breath.
Objective
Labs:
05/02/24 07:44
05/02/24 07:44
Labs
Hgb 15.8 g/dL (12.0-16.0) 05/02/24 07:44
Hct 49.1 % (37.0-47.0) H 05/02/24 07:44
Plt Count 186 10^3/uL (130-400) 05/02/24 07:44
PT 27.7 Sec (11.4-14.6) H 05/02/24 07:44
INR 2.53 05/02/24 07:44
APTT 44.0 Sec (23.4-35.0) H 04/29/24 15:10
APTT Cancelled 04/29/24 15:10
Sodium 139 mmol/L (135-145) 05/02/24 07:44
Potassium 3.7 mmol/L (3.5-5.1) 05/02/24 07:44
BUN 27 mg/dl (7-17) H 05/02/24 07:44
Creatinine 0.7 mg/dL (0.6-1.0) 05/02/24 07:44
Glucose 119 mg/dl (70-99) H 05/02/24 07:44
Troponins
04/29/24
14:56
Troponin I 0.016
Vital Signs and I&O:
Vital Signs
Temp Pulse Resp BP Pulse Ox
97.8 F 84 20 112/60 93
05/02/24 07:30 05/02/24 08:59 05/02/24 07:30 05/02/24 08:59 05/02/24 07:30
Vital Signs
Temp Pulse Resp BP Pulse Ox
97.8 F 84 20 112/60 93
05/02/24 07:30 05/02/24 08:59 05/02/24 07:30 05/02/24 08:59 05/02/24 07:30
Intake & Output
04/30/24 05/01/24 05/02/24 05/03/24
06:59 06:59 06:59 06:59
Intake Total 580 / 580 480 / 480
Output Total 650 / 650 1000 / 1000
Balance -70 / -70 -1000 / -1000 480 / 480
Physical Exam
Physical Exam
General: No acute distress, AAOX3
Neck: Negative JVD
Heart: Irregularly irregular, Negative S3 positive S1/S2, Negative S4, No murmur
Lungs: CTA b/l, negative wheezes/rales/rhonchi
Abd: Morbid obesity. Positive BS, NT/ND, neg rebound/rigidity/guarding
Ext: Negative cyanosis/clubbing/edema
Neuro: nonfocal
[2024-05-02 10:41] VITALS: BMI 47.4
[2024-05-02 11:45] VITALS: BP 124/72
[2024-05-02 12:10] LABS: Glucose - Point of Care 182 mg/dl (70-99)
[2024-05-02] MEDS: LANOXIN 125 MCG PO (12:22)
[2024-05-02] MEDS: NOVOLOG FLEXPEN-LOW RESISTANCE 1 UNITS SC (12:24)
[2024-05-02 15:30] VITALS: BP 112/67
[2024-05-02] MEDS: NEURONTIN 600 MG PO (15:45)
--- NOTE | 2024-05-02 15:50 | CM ---
PT OT donny indicated home with VN .
Spoke with and pt in room.
Offered VN they requested [facility].
[facility] Liaison [facility] notified.
will drive her home.
Remains on Oxygen 6liter Pox 93% Baseline is 3 liters.
Remains on diuretics.Home oxygen with [facility].
PLAN Home with [facility]
[2024-05-02 16:59] LABS: Glucose - Point of Care 128 mg/dl (70-99)
[2024-05-02] MEDS: LIPITOR 10 MG PO (17:15)
[2024-05-02] MEDS: COUMADIN 2.5 MG PO (17:15)
[2024-05-02 19:47] VITALS: BP 132/90
[2024-05-02] MEDS: NEURONTIN 300 MG PO (20:39)
[2024-05-02] MEDS: TOPROL XL 50 MG PO (20:40)
[2024-05-02] MEDS: RESTORIL 7.5 MG PO (20:41)
[2024-05-02] MEDS: REQUIP 0.25 MG PO (20:48)
[2024-05-02 21:25] LABS: Glucose - Point of Care 142 mg/dl (70-99)
[2024-05-02 23:28] VITALS: BP 128/72
[2024-05-03 03:24] VITALS: BP 141/91
[2024-05-03 06:32] VITALS: BMI 46.7
[2024-05-03 07:00] VITALS: BP 115/74
[2024-05-03] MEDS: PULMICORT 0.5 MG INH ×2 (07:05→20:43)
[2024-05-03] MEDS: SPIRIVA RESPIMAT 2.5 MCG 2 PUFF INH (07:06)
[2024-05-03] MEDS: VENTOLIN NEBULES 2.5 MG INH ×2 (07:06→20:43)
[2024-05-03 08:02] LABS: Glucose - Point of Care 90 mg/dl (70-99)
[2024-05-03] MEDS: NOVOLOG FLEXPEN-LOW RESISTANCE SC ×3 (08:16→16:22)
[2024-05-03 08:17] LABS: % Basophils 0.9 % (0-2); % Immature Granulocytes 0.5 % (0-0.5); % Lymphocytes 33.5 % (20.5-51.1); % Monocytes 10.3 % (1.7-9.3); % Neutrophils 50.8 % (42.2-75.2); Absolute Basophils 0.1 10^3/uL (0-0.2); Absolute Eosinophils 0.3 10^3/uL (0-0.7); Absolute Lymphocytes 2.2 10^3/uL (1.2-3.4); Absolute Monocytes 0.7 10^3/uL (0.1-0.6); Absolute Neutrophils 3.3 10^3/uL (1.4-6.5); Hematocrit 46.3 % (37.0-47.0); Hemoglobin 15.2 g/dL (12.0-16.0); Mean Corp Hgb Conc. 32.8 g/dL (33.0-37.0); Mean Corpuscular Hgb 33.9 pg (27.0-31.0); Mean Corpuscular Volume 103.1 fL (81.0-99.0); Nucleated Red Blood Cells % 0 %; Platelet Count 167 10^3/uL (130-400); Red Blood Cell Count 4.49 10^6/uL (4.20-5.40); Red Cell Dist. Width 17.5 % (11.5-14.5); White Blood Cell Count 6.5 10^3/uL (4.8-10.8)
[2024-05-03] MEDS: DEMADEX 40 MG PO ×2 (08:17→15:30)
[2024-05-03] MEDS: THERAGRAN 1 TABLET PO (08:18)
[2024-05-03] MEDS: VITAMIN B-12 2500 MCG PO (08:18)
[2024-05-03] MEDS: CYMBALTA DELAYED RELEASE 60 MG PO (08:18)
[2024-05-03] MEDS: MAGNESIUM OXIDE 500 MG PO (08:18)
[2024-05-03] MEDS: KCL 20 MEQ PO (08:20)
[2024-05-03] MEDS: OSCAL 500 + D 500 MG PO (08:21)
[2024-05-03 08:22] LABS: INR 3.17; PT 32.9 Sec (11.4-14.6)
[2024-05-03] MEDS: DESENEX/MITRAZOL/ZEASORB 1 APPLIC TOPICAL ×2 (08:23→20:54)
[2024-05-03] MEDS: TAMIFLU 75 MG PO ×2 (08:25→20:54)
[2024-05-03] MEDS: TOPROL XL 100 MG PO (08:25)
[2024-05-03 09:06] LABS: ALT (SGPT) 25 U/L (0-35); AST (SGOT) 39 U/L (14-36); Albumin 3.5 g/dl (3.5-5.0); Alkaline Phosphatase 197 U/L (38-126); Blood Urea Nitrogen 24 mg/dl (7-17); Calcium 8.3 mg/dl (8.4-10.2); Carbon Dioxide 36 mmol/L (22-30); Chloride 95 mmol/L (98-107); Estimated Creatinine Clearance 104 ml/min; Glucose 114 mg/dl (70-99); Potassium 3.4 mmol/L (3.5-5.1); Sodium 139 mmol/L (135-145); Total Bilirubin 1.8 mg/dl (0.2-1.3); Total Protein 6.6 g/dl (6.3-8.2); eGFR > 60.00
--- NOTE | 2024-05-03 09:55 | W.PN.HOSP.TC ---
Today's Communication/Plan
-
Continue diuretics. Titrate oxygen
Assessment / Plan
Assessment / Plan
Gen: NAD, Awake and alert
Eyes: EOMI, PERRLA, no scleral icterus.
Neck: supple.
CV: irreg/irreg, +S1/S2, no m/r/g.
Resp: CTAB anteriorly, no rales, wheezes, or rhonchi.
Abd: +BS, soft, NT, ND
Skin: No rashes. 2+ B/L LE lymphedema
Neuro: CN 2-12 intact, non-focal.
Psych: Normal mood and affect.
04/29/24 15:10 Nasal Swab Influenza Types A & B (WILLIAM) - Final
Influenza A Positive, NAAT
CXR: Cardiomegaly with mild interstitial edema and bibasilar atelectasis.
A/P:
Acute on Chronic hypoxemic and hypercapnic respiratory failure due to acute influenza A infection, underlying COPD/CHAS/OHS:
-cont BIPAP HS
-currently on 4 L NC O2 down from 6 L yesterday (on 3L NC O2 at home)--> will titrate down oxygen as able
-cont Tamiflu
-Incentive spirometry
-Continue PT OT eval
-Discussed with at bedside today
Acute on chronic HFpEF:
-Chronic LE lymphedema
-s/p IV Bumex on admission--> changed to oral torsemide 40 mg twice a day yesterday as per cardiology recommendations
-daily wts, I/Os, FR
-cont BB
-c/s cards
Other problems:
Persistent AFib: Cont Coumadin/Dig/BB. INR 2.53 today
Essential HTN: cont BB
DM2 with diabetic neuropathy: check a1c, SSI/accuchecks/diabetic diet, cont neurontin
h/o TAVR
Severe pulm HTN
Lactic acidosis, resolved
Hypokalemia: K3.7 today
h/o R post CVA: cont statin/couamdin
h/o R parietal meningioma
CHAS: intolerant of CPAP
HLD: cont statin
Morbid obesity due to excess calories
Minimally elevated LFTs
Liver lesion: outpatient MRI is needed
Subclinical hyperthyroidism
FULL/Coumadin
Anticipated Discharge: Within 24 hours
Subjective/Interval History
-
Date of Service: May 03, 2024
Patient feels better overall. Still on oxygen
Objective Data
-
Labs:
Laboratory Results
05/03/24
07:26
WBC 6.5
Hgb 15.2
Hct 46.3
Plt Count 167
PT 32.9 H
INR 3.17
Sodium 139
Potassium 3.4 L
Chloride 95 L
Carbon Dioxide 36 H
BUN 24 H
Creatinine 0.7
Glucose 114 H
Calcium 8.3 L
Total Bilirubin 1.8 H
AST 39 H
ALT 25
Alkaline Phosphatase 197 H
Vital Signs:
Vital Signs
Temp Pulse Resp BP Pulse Ox
98.9 F 78 16 115/74 93
05/03/24 07:00 05/03/24 07:18 05/03/24 07:18 05/03/24 07:00 05/03/24 07:00
I&O
05/02/24 05/03/24 05/04/24
06:59 06:59 06:59
Intake Total 480 / 480 840 / 840
Output Total 2099 / 2099
Balance 480 / 480 -1260 / -1260
[2024-05-03] MEDS: KCL 40 MEQ PO (10:43)
[2024-05-03 10:48] LABS: Glucose - Point of Care 129 mg/dl (70-99)
[2024-05-03 11:00] VITALS: BP 126/79
[2024-05-03] MEDS: LANOXIN 125 MCG PO (12:00)
[2024-05-03 12:11] LABS: Glucose - Point of Care 185 mg/dl (70-99)
[2024-05-03 13:38] LABS: Glucose - Point of Care 134 mg/dl (70-99)
[2024-05-03 15:00] VITALS: BP 134/77
[2024-05-03] MEDS: NEURONTIN 600 MG PO (15:30)
[2024-05-03 16:21] LABS: Glucose - Point of Care 131 mg/dl (70-99)
[2024-05-03] MEDS: LIPITOR 10 MG PO (18:02)
[2024-05-03 19:25] VITALS: BP 126/90
[2024-05-03] MEDS: REQUIP 0.25 MG PO (20:59)
[2024-05-03] MEDS: NEURONTIN 300 MG PO (20:59)
[2024-05-03] MEDS: RESTORIL 7.5 MG PO (20:59)
[2024-05-03] MEDS: TOPROL XL 50 MG PO (20:59)
[2024-05-03 21:45] LABS: Glucose - Point of Care 137 mg/dl (70-99)
[2024-05-03 23:04] VITALS: BP 113/76
[2024-05-04 03:15] VITALS: BP 106/70
[2024-05-04 06:00] VITALS: BMI 46.2
[2024-05-04 07:09] LABS: Blood Urea Nitrogen 24 mg/dl (7-17); Calcium 8.4 mg/dl (8.4-10.2); Carbon Dioxide 38 mmol/L (22-30); Chloride 95 mmol/L (98-107); Estimated Creatinine Clearance 90 ml/min; Glucose 135 mg/dl (70-99); Potassium 3.2 mmol/L (3.5-5.1); Sodium 140 mmol/L (135-145); eGFR > 60.00
[2024-05-04 07:28] VITALS: BP 132/77
--- NOTE | 2024-05-04 07:33 | W.PN.HOSP.TC ---
Today's Communication/Plan
-
Oxygen. Chest x-ray.
Assessment / Plan
Assessment / Plan
Gen: NAD, Awake and alert
Eyes: EOMI, PERRLA, no scleral icterus.
Neck: supple.
CV: irreg/irreg, +S1/S2, no m/r/g.
Resp: CTAB anteriorly, no rales, wheezes, or rhonchi.
Abd: +BS, soft, NT, ND
Skin: No rashes. 2+ B/L LE lymphedema
Neuro: CN 2-12 intact, non-focal.
Psych: Normal mood and affect.
04/29/24 15:10 Nasal Swab Influenza Types A & B (WILLIAM) - Final
Influenza A Positive, NAAT
CXR: Cardiomegaly with mild interstitial edema and bibasilar atelectasis.
A/P:
Acute on Chronic hypoxemic and hypercapnic respiratory failure due to acute influenza A infection, underlying COPD/CHAS/OHS:
-Took off oxygen this morning by herself so had to be placed on nonrebreather mask and then now down to 6 L of oxygen I will titrate slowly as able. Repeat chest x-ray today. Instructed critical to be compliant with oxygen.
-cont BIPAP HS
-currently on oxygen (on 3L NC O2 at home)--> will titrate down oxygen as able
-cont Tamiflu
-Incentive spirometry
-Continue PT OT eval
-Discussed with at bedside prior
Acute on chronic HFpEF:
-Chronic LE lymphedema
-s/p IV Bumex on admission--> changed to oral torsemide 40 mg twice a day as per cardiology recommendations
-daily wts, I/Os, FR
-cont BB
-c/s cards
Other problems:
Persistent AFib: Cont Coumadin/Dig/BB. INR 2.53 today
Essential HTN: cont BB
DM2 with diabetic neuropathy: check a1c, SSI/accuchecks/diabetic diet, cont neurontin
h/o TAVR
Severe pulm HTN
Lactic acidosis, resolved
Hypokalemia: K3.7 today
h/o R post CVA: cont statin/couamdin
h/o R parietal meningioma
CHAS: intolerant of CPAP
HLD: cont statin
Morbid obesity due to excess calories
Minimally elevated LFTs
Liver lesion: outpatient MRI is needed
Subclinical hyperthyroidism
FULL/Coumadin
Anticipated Discharge: Within 24 hours
Subjective/Interval History
-
Date of Service: May 04, 2024
Patient took off her oxygen today and was cyanotic and hypoxic. No worsening shortness of breath. No chest pain. Afebrile
Objective Data
-
Labs:
Laboratory Results
05/04/24
06:32
Sodium 140
Potassium 3.2 L
Chloride 95 L
Carbon Dioxide 38 H
BUN 24 H
Creatinine 0.8
Glucose 135 H
Calcium 8.4
Vital Signs:
Vital Signs
Temp Pulse Resp BP Pulse Ox
98.2 F 92 16 132/77 96
05/04/24 03:15 05/04/24 07:28 05/04/24 07:28 05/04/24 07:28 05/04/24 07:28
I&O
05/03/24 05/04/24 05/05/24
06:59 06:59 06:59
Intake Total 840 / 840 1200 / 1200
Output Total 2099 / 2099 400 / 400
Balance -1260 / -1260 800 / 800
[2024-05-04 08:09] LABS: Glucose - Point of Care 98 mg/dl (70-99)
[2024-05-04 08:44] LABS: PT 31.5 Sec (11.4-14.6)
[2024-05-04] MEDS: DEMADEX 40 MG PO ×2 (09:08→16:11)
[2024-05-04] MEDS: MAGNESIUM OXIDE 500 MG PO (09:08)
[2024-05-04] MEDS: KCL 40 MEQ PO ×2 (09:09→13:31)
[2024-05-04] MEDS: TAMIFLU 75 MG PO ×2 (09:09→20:27)
[2024-05-04] MEDS: THERAGRAN 1 TABLET PO (09:09)
[2024-05-04] MEDS: CYMBALTA DELAYED RELEASE 60 MG PO (09:09)
[2024-05-04] MEDS: TOPROL XL 100 MG PO (09:10)
[2024-05-04] MEDS: OSCAL 500 + D 500 MG PO (09:10)
[2024-05-04] MEDS: VENTOLIN NEBULES 2.5 MG INH ×2 (09:11→20:08)
[2024-05-04] MEDS: SPIRIVA RESPIMAT 2.5 MCG 2 PUFF INH (09:11)
[2024-05-04] MEDS: PULMICORT 0.5 MG INH ×2 (09:11→20:09)
[2024-05-04] MEDS: KCL 20 MEQ PO (09:13)
[2024-05-04] MEDS: NOVOLOG FLEXPEN-LOW RESISTANCE SC (09:15)
[2024-05-04] MEDS: DESENEX/MITRAZOL/ZEASORB TOPICAL ×2 (09:16→20:31)
[2024-05-04] MEDS: VITAMIN B-12 2500 MCG PO (09:42)
[2024-05-04 11:17] VITALS: BP 137/115
--- NOTE | 2024-05-04 12:00 | PTCARENOTE ---
This RN entered pt room and pt appeared cyanotic with her lips and hands turning purple. Pt. had removed oxygen and had been walking around the room. This RN reapplied oxygen and checked VS, pulse ox 70-80%. Pt. put on non rebreather and pulse ox
increased to 95. MD at bedside and updated on pt condition. CXR ordered and this RN instructed to wean O2 through out shift if tolerated by pt. Pt. now on 4L nasal cannula and pulse ox 97%, no complaints of SOB.
[2024-05-04] MEDS: LANOXIN 125 MCG PO (13:32)
[2024-05-04 14:34] LABS: Glucose - Point of Care 169 mg/dl (70-99)
[2024-05-04] MEDS: NOVOLOG FLEXPEN-LOW RESISTANCE 1 UNITS SC ×2 (14:34→17:21)
[2024-05-04 15:18] VITALS: BP 113/74
[2024-05-04] MEDS: NEURONTIN 600 MG PO (16:12)
--- NOTE | 2024-05-04 16:31 | CM ---
PT OT donny indicated home with VN .
Offered VN they requested [facility]. [facility] set up by [facility] liaison
will drive her home.
Remains on Oxygen 4liter Pox 93% Baseline is 3 liters.
Remains on diuretics.
Home oxygen with [facility].
Pt on Tamiflu.
PLAN Home with [facility]
[2024-05-04 16:33] LABS: Glucose - Point of Care 155 mg/dl (70-99)
[2024-05-04] MEDS: LIPITOR 10 MG PO (18:07)
[2024-05-04] MEDS: COUMADIN 2.5 MG PO (18:07)
[2024-05-04] MEDS: RESTORIL 7.5 MG PO (21:09)
[2024-05-04] MEDS: REQUIP 0.25 MG PO (21:09)
[2024-05-04] MEDS: NEURONTIN 300 MG PO (21:09)
[2024-05-04] MEDS: TOPROL XL 50 MG PO (21:09)
[2024-05-04 21:59] LABS: Glucose - Point of Care 139 mg/dl (70-99)
[2024-05-04 22:37] VITALS: BP 116/75
[2024-05-05 03:55] VITALS: BP 120/74
[2024-05-05 06:00] VITALS: BMI 45.9
[2024-05-05 07:16] VITALS: BP 94/65
[2024-05-05 07:55] LABS: Glucose - Point of Care 93 mg/dl (70-99)
[2024-05-05 08:01] LABS: INR 3.25
[2024-05-05] MEDS: PULMICORT 0.5 MG INH (08:05)
[2024-05-05] MEDS: SPIRIVA RESPIMAT 2.5 MCG 2 PUFF INH (08:05)
[2024-05-05] MEDS: VENTOLIN NEBULES 2.5 MG INH (08:05)
[2024-05-05] MEDS: NOVOLOG FLEXPEN-LOW RESISTANCE SC (08:13)
[2024-05-05 08:21] LABS: Blood Urea Nitrogen 23 mg/dl (7-17); Calcium 8.6 mg/dl (8.4-10.2); Chloride 96 mmol/L (98-107); Estimated Creatinine Clearance 80 ml/min; Glucose 128 mg/dl (70-99); Potassium 4.3 mmol/L (3.5-5.1); Sodium 142 mmol/L (135-145); eGFR > 60.00
[2024-05-05] MEDS: CYMBALTA DELAYED RELEASE 60 MG PO (08:34)
[2024-05-05] MEDS: THERAGRAN 1 TABLET PO (08:34)
[2024-05-05] MEDS: MAGNESIUM OXIDE 500 MG PO (08:34)
[2024-05-05] MEDS: OSCAL 500 + D 500 MG PO (08:35)
[2024-05-05] MEDS: TOPROL XL PO (08:35)
[2024-05-05] MEDS: KCL 20 MEQ PO (08:36)
[2024-05-05] MEDS: VITAMIN B-12 2500 MCG PO (08:36)
[2024-05-05] MEDS: DESENEX/MITRAZOL/ZEASORB TOPICAL (08:40)
[2024-05-05 08:44] LABS: Carbon Dioxide 36 mmol/L (22-30)
[2024-05-05] MEDS: DEMADEX PO (08:53)
--- NOTE | 2024-05-05 10:17 | W.PN.HOSP.TC ---
Today's Communication/Plan
-
discharge planning today
Assessment / Plan
Assessment / Plan
Gen: NAD, Awake and alert
Eyes: EOMI, PERRLA, no scleral icterus.
Neck: supple.
CV: irreg/irreg, +S1/S2, no m/r/g.
Resp: CTAB anteriorly, no rales, wheezes, or rhonchi.
Abd: +BS, soft, NT, ND
Skin: No rashes. 2+ B/L LE lymphedema
Neuro: CN 2-12 intact, non-focal.
Psych: Normal mood and affect.
04/29/24 15:10 Nasal Swab Influenza Types A & B (WILLIAM) - Final
Influenza A Positive, NAAT
CXR: Cardiomegaly with mild interstitial edema and bibasilar atelectasis.
A/P:
Acute on Chronic hypoxemic and hypercapnic respiratory failure due to acute influenza A infection, underlying COPD/CHAS/OHS:
-Took off oxygen this morning by herself so had to be placed on nonrebreather mask and then now down to 6 L of oxygen I will titrate slowly as able. Repeat chest x-ray today. Instructed critical to be compliant with oxygen.
-cont BIPAP HS
-currently on oxygen (on 3L NC O2 at home)
-finished Tamiflu
-Incentive spirometry
-Continue PT OT eval
-Discussed with at bedside prior
Acute on chronic HFpEF:
-Chronic LE lymphedema
-s/p IV Bumex on admission--> changed to oral torsemide 40 mg twice a day as per cardiology recommendations
-daily wts, I/Os, FR
-cont BB
-c/s cards
Other problems:
Persistent AFib: Cont Coumadin/Dig/BB. INR 2.53 today
Essential HTN: cont BB
DM2 with diabetic neuropathy: check a1c, SSI/accuchecks/diabetic diet, cont neurontin
h/o TAVR
Severe pulm HTN
Lactic acidosis, resolved
Hypokalemia: K3.7 today
h/o R post CVA: cont statin/couamdin
h/o R parietal meningioma
CHAS: intolerant of CPAP
HLD: cont statin
Morbid obesity due to excess calories
Minimally elevated LFTs
Liver lesion: outpatient MRI is needed
Subclinical hyperthyroidism
FULL/Coumadin
Anticipated Discharge: Today
Subjective/Interval History
-
Date of Service: May 05, 2024
no new complaints. On 3 lt oxygen which is home O2 needs
Objective Data
-
Labs:
Laboratory Results
05/05/24
07:31
PT 33.0 H
INR 3.25
Sodium 142
Potassium 4.3 D
Chloride 96 L
Carbon Dioxide 36 H
BUN 23 H
Creatinine 0.9
Glucose 128 H
Calcium 8.6
Vital Signs:
Vital Signs
Temp Pulse Resp BP Pulse Ox
97.4 F 83 20 94/65 95
05/05/24 07:16 05/05/24 08:09 05/05/24 08:09 05/05/24 08:53 05/05/24 08:09
I&O
05/04/24 05/05/24 05/06/24
06:59 06:59 06:59
Intake Total 1200 / 1200 960 / 960
Output Total 400 / 400 1200 / 1200
Balance 800 / 800 -240 / -240
[2024-05-05 11:11] VITALS: BP 94/69
[2024-05-05 11:57] LABS: Glucose - Point of Care 176 mg/dl (70-99)
[2024-05-05] MEDS: LANOXIN 125 MCG PO (13:08)
--- NOTE | 2024-05-05 13:09 | W.DCSUMMARY ---
Discharge Summary
Discharge Data
Date of Admission: 04/29/24
Date of Discharge: 05/05/24
-
Pending Results: No
Hospital Course
Patient is 68 years of with multiple comorbidities including hypertension, diabetes, A-fib, TAVR, severe pulmonary hypertension,, no other medical problems came into the with acute on chronic heart failure exacerbation. Patient was treated with IV
diuretics and oxygen supplementation. Cardiology consulted. It was noticeably that her exacerbation was related to noncompliant with her diuretics and this was instructed very clearly during this hospital stay and she claims she will be compliant
upon discharge. Otherwise, patient is euvolemic and she is back to her normal 3 L of oxygen from home. She did well rest of hospital stay. She was cleared by cardiology for discharge. She will be discharged in stable condition today.
Discharge duration: 35 minutes
Discharge Plan
-
Patient Disposition: Home with Home Care
Discharge Diagnosis/Procedures: Acute on chronic hypoxemic and hypercapnic respiratory failure. Influenza A. Acute on chronic diastolic congestive heart failure. Persistent atrial fibrillation. Hypertension. Diabetes mellitus type 2. Severe
pulmonary hypertension. Hypokalemia. Medical noncompliance. Subclinical hypothyroidism.
Diet: Low Cholesterol, 2 Gram Sodium and Restrict fluids to 48 oz
Activity: As tolerated
Blood Work: Please PCP to order CBC, BMP, INR within 3-5 days
Other Services: VN
Specialty Instructions: Weigh Daily- Call MD for wt gain/loss 3 lbs overnight/5 lbs in 1 week
Instructions: *DCA Heart Failure Instructions
Referrals:
Primary care, provider [Other] (See less than 1 week)
Tiburcio Alejandro MD [Active] - 05/08/24 2:00 pm (You are scheduled to see Dr. Alejandro at the [place] office on 05/08/24 at 2 PM. Please call [phone] if you need to reschedule.)
Additional Discharge Medication Instructions: -Increase torsemide (Demadex) to 40 mg twice a day (8AM and 4PM)
Prescriptions:
New
torsemide 20 mg Tablet
40 mg PO BID@0800,1600 30 Days Qty: 60 0RF
Continued
duloxetine 60 MG capsule,delayed release(DR/EC)
60 mg PO DAILY
metformin 500 mg Tablet
500 mg PO BID
atorvastatin 10 mg Tablet
10 mg PO QPM
metoprolol succinate 50 mg Tablet Extended Release 24 Hr
100 mg PO DAILY
glipizide 2.5 mg Tablet Extended Release 24hr
2.5 mg PO BID
Yupelri 175 mcg/3 mL Solution For Nebulization
175 mcg INHALATION R DAILY
cyanocobalamin (vitamin B-12) [Vitamin B-12] 2,500 mcg Tablet, Sublingual
2,500 mcg SUBLINGUAL DAILY
budesonide 0.5 mg/2 mL Suspension For Nebulization
0.5 mg INHALATION R BID
arformoterol [Brovana] 15 mcg/2 mL Solution For Nebulization
2 ml INHALATION R BID
calcium carbonate-vitamin D3 [Oyster Shell Calcium-Vit D3] 500 MG tablet
500 mg PO DAILY
Hair, Skin and Nails (biotin) 10,000 mcg Tablet,Chewable
10,000 mcg PO DAILY
albuterol sulfate 90 mcg/actuation Hfa Aerosol Inhaler
2 puff INHALATION R Q6HPRN PRN (Reason: sob)
metoprolol succinate 50 mg tablet extended release 24 hr
50 mg PO HS
digoxin 125 mcg (0.125 mg) Tablet
125 mcg PO DAILY
potassium chloride 20 mEq tablet extended release
20 meq PO DAILY Qty: 3 0RF
magnesium oxide 400 mg (241.3 mg magnesium) tablet
400 mg PO DAILY Qty: 3 0RF
therapeutic multivitamin Tablet
1 tab PO DAILY
temazepam 15 mg Capsule
15 mg PO HS
ropinirole 0.25 mg Tablet
0.25 mg PO HS
gabapentin 300 mg Capsule
300 mg PO HS
gabapentin 300 mg Capsule
600 mg PO DAILY@1500
Held
warfarin 2.5 mg Tablet
2.5 mg PO SUTUWETHSA
Hold Instructions: Resume on 05/07/24.
warfarin 5 mg Tablet
5 mg PO MOFR
Hold Instructions: Resume on 05/08/24.
Discontinued
torsemide 20 mg tablet
60 mg PO DAILY
Discharge Orders:
Discharge Patient (As Directed); Ordered 05/05/24
Ordered By: Dany Reyes
Discharge Date and Time
Discharge Date/Time: 05/05/24 15:34
Print Language: YAKUT
[2024-05-05] MEDS: NOVOLOG FLEXPEN-LOW RESISTANCE 1 UNITS SC (13:10)
[2024-05-05 14:20] VITALS: PULSE 75; O2SAT 96
[2024-05-05] MEDS: NEURONTIN 600 MG PO (15:06)
--- NOTE | 2024-05-05 15:44 | CM ---
IMM benefit explained; form signed; reported that will transport home
Plan: Discharge to home today with home health services from [facility]
--- NOTE | 2024-05-05 15:45 | PTCARENOTE ---
Pt discharged, HF and medication education provided. Pt transported in wheelchair and using her portable O2 tank from home on 3L.
== END 2024-05-05 15:34 | disposition home health service (06) | DRG 193 ==
LOC: 3 WEST ACU 19:42
PROVIDERS: Clinical Nurse Specialist Family Health; ADMITTING PHYSICIAN Hospitalist; ATTENDING PHYSICIAN Hospitalist; CONSULT PHYSICIAN Internal Medicine Cardiovascular Disease; EMERGENCY PHYSICIAN Emergency Medicine
PROC: 5A09357 Assistance with Respiratory Ventilation, Less than 24 Consecutive Hours, Continuous Positive Airway Pressure (ICD-10-PCS; 2024-04-29)
DX: J10.1 Influenza due to other identified influenza virus with other respiratory manifestations (principal); I50.33 Acute on chronic diastolic (congestive) heart failure; J96.21 Acute and chronic respiratory failure with hypoxia; J96.22 Acute and chronic respiratory failure with hypercapnia; I48.19 Other persistent atrial fibrillation; E66.2 Morbid (severe) obesity with alveolar hypoventilation; Z68.42 Body mass index [BMI] 45.0-49.9, adult; E87.20 Acidosis, unspecified; I11.0 Hypertensive heart disease with heart failure; J44.89 Other specified chronic obstructive pulmonary disease; I27.20 Pulmonary hypertension, unspecified; E11.40 Type 2 diabetes mellitus with diabetic neuropathy, unspecified; E78.2 Mixed hyperlipidemia; D75.1 Secondary polycythemia; R74.8 Abnormal levels of other serum enzymes; M19.90 Unspecified osteoarthritis, unspecified site; M79.7 Fibromyalgia; F32.A Depression, unspecified; J98.4 Other disorders of lung; E66.813 Obesity, class 3; I25.10 Atherosclerotic heart disease of native coronary artery without angina pectoris; F41.1 Generalized anxiety disorder; K76.9 Liver disease, unspecified; E03.8 Other specified hypothyroidism; E87.6 Hypokalemia; I89.0 Lymphedema, not elsewhere classified; D32.0 Benign neoplasm of cerebral meninges; J30.81 Allergic rhinitis due to animal (cat) (dog) hair and dander; J30.1 Allergic rhinitis due to pollen; K21.9 Gastro-esophageal reflux disease without esophagitis; Z96.653 Presence of artificial knee joint, bilateral; Z91.148 Patient's other noncompliance with medication regimen for other reason; Z99.81 Dependence on supplemental oxygen; Z11.52 Encounter for screening for COVID-19; Z79.01 Long term (current) use of anticoagulants; Z86.73 Personal history of transient ischemic attack (TIA), and cerebral infarction without residual deficits; Z86.711 Personal history of pulmonary embolism; Z87.891 Personal history of nicotine dependence; Z82.61 Family history of arthritis; Z88.1 Allergy status to other antibiotic agents; Z88.0 Allergy status to penicillin; Z88.2 Allergy status to sulfonamides; Z79.84 Long term (current) use of oral hypoglycemic drugs; Z79.51 Long term (current) use of inhaled steroids; Z91.199 Patient's noncompliance with other medical treatment and regimen due to unspecified reason
CPT/HCPCS: 71045; 71046; 80048; 80053; 80061; 81003; 81015; 82805; 82962; 83036; 83605; 83735; 83880; 84484; 85025; 85610; 85730; 87040; 87502; 87811; 93005; 94640; 94660; 96374; 97116; 97162; 97167; 97535; 99291

== ENCOUNTER 2024-05-30 21:41 | Emergency (ER) | payer MEDICARE, OTHER, SELFPAY ==
[2024-05-30 21:48] VITALS: BP 118/74
--- NOTE | 2024-05-31 00:19 | ED.GENMED ---
History of Present Illness
General
Chief Complaint: Musculo-Skeletal Complaint
Time Seen by Provider: 05/30/24 23:39
History of Present Illness
History of Present Illness:
68-year-old woman presenting to the emergency department ankle pain 2 days ago she had a fall going up the steps. She did not hit her head or lose consciousness. She did roll her ankle. She was able to ambulate. However over the past few days
the pain has worsened. She has tried Tylenol with some relief. No numbness tingling. No weakness.
Past History
Past History
ED Past Medical History: Arrthythmia (Atrial fibrillation), Asthma, CHF, COPD, CVA (Right VENEER CLIPPER stroke), GERD, HTN, Hypercholesterolemia, NIDDM, Valvular disease, Psychiatric (Generalized anxiety disorder) and Other (Obstructive sleep apnea, morbid
obesity, right parietal meningioma)
ED Past Surgical History: Cardiac (Have our) and Orthopedic
Social History
Tobacco: Non-smoker
Alcohol: Occasional
Drug: None
Personal:
Living: with family
Family History
Family History: Other (Reviewed and noncontributory)
Phy Exam
Physical Exam
Physical Exam:
GENERAL: in no acute distress
HEENT: normocephalic, extraocular movements intact
NECK: normal inspection
RESPIRATORY: no respiratory distress
CARDIOVASCULAR: regular rate and rhythm
EXTREMITIES: Left lower extremity with the lower anterior ankle some very mild tenderness over the left lateral malleolus, 5 out of 5 strength in plantar and dorsiflexion, neurovascularly intact
NEUROLOGIC: awake and alert, moves all extremities
SKIN: warm
Course
Orders/Labs/Results
Orders:
Orders
05/30/24 21:46
Ankle, left 3 view CR [CR Ankle - Left Min 3 Views ] Urgent
Comment:
Reason For Exam: FALL
05/31/24 00:18
Ortho Boot Left- Treatment ONCE
Short or tall?: Short
Acetaminophen [Tylenol] 1,000 mg PO NOW STA
Vital Signs
Initial and Last Documented VS:
Initial Vital Signs
Temp Pulse BP Pulse Ox
97.5 F 102 118/74 62
05/30/24 21:48 05/30/24 21:48 05/30/24 21:48 05/30/24 21:48
Last Documented Vital Signs
Temp Pulse BP Pulse Ox
97.5 F 102 118/74 93
05/30/24 21:48 05/30/24 21:48 05/30/24 21:48 05/31/24 00:19
MDM/Problems Addressed
Differential Diagnosis Includes:
Patient is a 68-year-old woman presenting to the emergency department with ankle pain after fall 3 days ago. Vitals are unremarkable exam does show very mild tenderness over the anterior and lateral ankle. No bony tenderness. No swelling.
Concern for fracture versus sprain. X-ray per my interpretation with no obvious fracture. Will give patient Tylenol as well as a walking boot for comfort. Discussed with patient compression ice elevation and following up primary care/Ortho
*Critical Care Note
Total Time (30-74mins, 75-104mins- exclusive of procedures): Not Applicable
Update Note
Update Note:
Patient able to ambulate with a walking boot. Will discharge this time. Patient advised to the walking boot is as needed. Strict return precautions given
ED Attending Note
-
Portions of this chart may have been created with voice recognition software.� Occasional wrong word or��sound alike� substitutions may have occurred due to the inherent limitations of voice recognition software.
Discharge Plan
Departure
Patient Disposition: Home (Routine Discharge)
Date of Disposition: 05/31/24
Time of Disposition: 00:37
Patient with high blood pressure during this ER visit?: No
Discharge Problem:
Ankle pain
Instructions: Sprain (DC)
Prescriptions:
No Action
duloxetine 60 MG capsule,delayed release(DR/EC)
60 mg PO DAILY
metformin 500 mg Tablet
500 mg PO BID
atorvastatin 10 mg Tablet
10 mg PO QPM
metoprolol succinate 50 mg Tablet Extended Release 24 Hr
100 mg PO DAILY
glipizide 2.5 mg Tablet Extended Release 24hr
2.5 mg PO BID
Yupelri 175 mcg/3 mL Solution For Nebulization
175 mcg INHALATION R DAILY
cyanocobalamin (vitamin B-12) [Vitamin B-12] 2,500 mcg Tablet, Sublingual
2,500 mcg SUBLINGUAL DAILY
budesonide 0.5 mg/2 mL Suspension For Nebulization
0.5 mg INHALATION R BID
arformoterol [Brovana] 15 mcg/2 mL Solution For Nebulization
2 ml INHALATION R BID
calcium carbonate-vitamin D3 [Oyster Shell Calcium-Vit D3] 500 MG tablet
500 mg PO DAILY
Hair, Skin and Nails (biotin) 10,000 mcg Tablet,Chewable
10,000 mcg PO DAILY
warfarin 2.5 mg Tablet
2.5 mg PO SUTUWETHSA
albuterol sulfate 90 mcg/actuation Hfa Aerosol Inhaler
2 puff INHALATION R Q6HPRN PRN (Reason: sob)
metoprolol succinate 50 mg tablet extended release 24 hr
50 mg PO HS
digoxin 125 mcg (0.125 mg) Tablet
125 mcg PO DAILY
potassium chloride 20 mEq tablet extended release
20 meq PO DAILY Qty: 3 0RF
magnesium oxide 400 mg (241.3 mg magnesium) tablet
400 mg PO DAILY Qty: 3 0RF
therapeutic multivitamin Tablet
1 tab PO DAILY
temazepam 15 mg Capsule
15 mg PO HS
ropinirole 0.25 mg Tablet
0.25 mg PO HS
warfarin 5 mg Tablet
5 mg PO MOFR
gabapentin 300 mg Capsule
300 mg PO HS
gabapentin 300 mg Capsule
600 mg PO DAILY@1500
torsemide 20 mg Tablet
40 mg PO BID@0800,1600 30 Days Qty: 60 0RF
Referrals:
Sanjay Carrera DO [Family Provider] -
Interventions
Interventions:
*Risk Screen - Suicide Last Done: 05/30/24 21:42
*General Assessment Last Done: 05/30/24 23:40
*Neglect/Abuse Screening Last Done: 05/30/24 21:42
ED- Fall Risk Assessment Last Done: 05/31/24 00:19
*ED COVID-19 Vaccine History Last Done: 05/30/24 23:40
ED-Musculoskeletal Assessment Last Done: 05/31/24 00:19
Discharge Date and Time
Print Language: JAPANESE
[2024-05-31 00:25] VITALS: BP 136/92
[2024-05-31] MEDS: TYLENOL 1000 MG PO (00:55)
== END 2024-05-31 01:15 | disposition home or self-care (01) ==
LOC: EMR 21:41
PROVIDERS: EMERGENCY PHYSICIAN Student in an Organized Health Care Education/Training Program; FAMILY PHYSICIAN Family Medicine
DX: M25.579 Pain in unspecified ankle and joints of unspecified foot (principal); W10.9XXA Fall (on) (from) unspecified stairs and steps, initial encounter; I48.91 Unspecified atrial fibrillation; J44.9 Chronic obstructive pulmonary disease, unspecified; I11.0 Hypertensive heart disease with heart failure; I50.9 Heart failure, unspecified; K21.9 Gastro-esophageal reflux disease without esophagitis; E78.00 Pure hypercholesterolemia, unspecified; E66.01 Morbid (severe) obesity due to excess calories; E11.9 Type 2 diabetes mellitus without complications; I38 Endocarditis, valve unspecified; G47.33 Obstructive sleep apnea (adult) (pediatric); Z86.73 Personal history of transient ischemic attack (TIA), and cerebral infarction without residual deficits
CPT/HCPCS: 99283; 73610

== ENCOUNTER → 2024-07-10 12:52 | Outpatient (REF) | payer MEDICARE, OTHER, SELFPAY ==
--- NOTE | 2024-07-10 14:14 | CARDSERVLU ---
Echocardiogram with [facility] completed after protocol screening completed. Allergies verified.
Patent IV site: _rt hand____
IV site flushed with 0.9% NaCl pre and post administration.
Diluted bolus method utilized to enhance visualization of ventricular kurtz.
Total volume given: __4.0__ mL
Patient tolerated all procedures well without complications.
== END ==
LOC: RCS 12:52
PROVIDERS: ATTENDING PHYSICIAN Internal Medicine Cardiovascular Disease; FAMILY PHYSICIAN Family Medicine
DX: I48.3 Typical atrial flutter (principal); I50.811 Acute right heart failure
CPT/HCPCS: 93306; Q9950

== ENCOUNTER 2024-07-20 14:04 | Inpatient (IN) | payer MEDICARE, OTHER, SELFPAY ==
[2024-07-20] VITALS (21 sets, daily range): BP systolic 90–132; BP diastolic 47–93; PULSE 2–92; BMI 49.9
--- NOTE | 2024-07-20 11:44 | ED.GENMED ---
History of Present Illness
General
Chief Complaint: Change in Mental Status
Time Seen by Provider: 07/20/24 11:44
History of Present Illness
History of Present Illness:
TIME OF INITIAL ENCOUNTER: 11:45 AM
HPI: Earlier this morning, the patient's and son received a text that was 'just gibberish'. She was also noted to be very short of breath and hypoxic with sats in the 50%. She was noted to be cyanotic both at home and here. does
indicate that she also has Raynaud's. On Wednesday, she was at [facility] after a fall and reports having a CAT scan and was discharged. Prior imaging studies have shown a meningioma. states that she is up about 8 pounds from her dry weight
and noted increased edema. According to the , the patient was seeing Dr. Love regarding the meningioma.
EXAM:
GENERAL: The patient is ill-appearing, with a poor waveform, her sats are about 86% on 6 L/min of oxygen, elevated BMI, peripheral cyanosis
HEENT: Moist oral mucosa
CARDIOVASCULAR: No murmurs, normal heart rate, slightly irregular, No chest wall tenderness
PULMONARY: Mild to moderate respiratory distress, breath sounds are somewhat coarse and decreased on the right
ABDOMEN: Soft with no peritoneal signs, no tenderness
NEUROLOGIC: Fair strength all extremities, no coordination deficits, eyes are open spontaneously
PSYCHIATRIC: She initially indicated that the month was August but knows she is at [facility], limited insight and judgment
EXTREMITIES: Nontender, 3+ bilateral lower extremity edema, moves all extremities equally
SKIN: Chronic skin changes, severe cyanosis to the distal lower extremities, areas of granulation tissue over the right knee that family states is related to prior falls
NUMBER AND COMPLEXITY OF PROBLEMS ADDRESSED AT THE ENCOUNTER
� Chronic conditions affecting care: Atrial fibrillation, high blood pressure, COPD
� Acute Exacerbation and/or Progression of Chronic Illness: This is an acute but recurring problem
� Differential Diagnosis includes: COPD, CHF, pneumonia, bronchitis, hypercapnic respiratory failure
AMOUNT AND/OR COMPLEXITY OF DATA TO BE REVIEWED AND ANALYZED
� I performed an independent evaluation of and my interpretation is:
EKG: Severe baseline artifact, rightward axis deviation, PVCs
CT: CAT scan shows the known meningioma which is slightly smaller in size
X-rays: Chest x-ray suggest the possibility of mild pulmonary vascular congestion
Laboratory Studies: White count 9.7, hemoglobin 16.8, INR is 1.9, ABG: pH 7.46, pCO2 34; BUN 58, creatinine 1.3, BNP 1270
Other:
� Review of other/old records: I reviewed records, the patient was admitted here with CHF exacerbation treated with IV diuresis and oxygen nearly 3 months ago. Echo showed EF of 70 to 75% with indeterminate diastolic function
due to A-fib based on echo from 10 days ago.
� Clinical information was obtained by an independent historian: I spoke to at bedside
� Prescriptions/Medications Considered but not given:
� Further testing considered but not performed:
RISK OF COMPLICATIONS AND/OR MORBIDITY OR MORTALITY OF PATIENT MANAGEMENT
� Social determinants of health affecting care: Lives at home
� Discussion with other providers: Hospitalist for admission due to hypoxia
� Escalation of care including admission/observation vs risk of discharge considered: The patient was given IV Bumex as she has 8 pound weight gain with significant lower extremity edema. CT of the brain was obtained which shows
no change and overall decrease in size of the known meningioma. She had been hypoxic requiring increased nasal cannula oxygen.
ANY OTHER UPDATES:
2:30 PM: The patient has sats of about 96% now with a very good waveform on 6 L/min of oxygen. Symptoms likely multifactorial including CHF and COPD exacerbations. Treated for both. No evidence of hypercapnic respiratory failure by ABG.
3:30 PM: I reassessed patient. The patient appears somewhat sedate similar to how she appeared upon arrival. I did speak to the who is requesting Dr. Benson to evaluate the patient�this has been already ordered by admitting team.
Past History
Past History
ED Past Medical History: Arrthythmia (Atrial fibrillation), Asthma, CHF, COPD, CVA (Right HIDES SOAKER stroke), GERD, HTN, Hypercholesterolemia, NIDDM, Valvular disease, Psychiatric (Generalized anxiety disorder) and Other (Obstructive sleep apnea, morbid
obesity, right parietal meningioma)
ED Past Surgical History: Cardiac (Have our) and Orthopedic
Social History
Tobacco: Non-smoker
Alcohol: Occasional
Drug: None
Personal:
Living: with family
Family History
Family History: Other (Reviewed and noncontributory)
Phy Exam
Physical Exam
Physical Exam:
See HPI
Course
Orders/Labs/Results
Orders:
Orders
07/20/24 11:45
Electrocardiogram (*1) Urgent
Reason for Study: Shortness of Breath
EKG- Treatment ONCE
CR Chest Portable - 1 View Urgent
Comment:
Reason For Exam: hypoxia copd
Reason Study Needs to be Portable: Patient Unstable
07/20/24 11:55
Complete Blood Count/With Diff Urgent
Comprehensive Metabolic Panel Urgent
NT-proBNP Urgent
Prothrombin Time Urgent
Troponin I Urgent
07/20/24 11:57
CT Head W/o Iv Contrast Urgent
Comment:
Reason For Exam: alt ms
07/20/24 11:58
Bumetanide [Bumex] 1 mg IV NOW STA
07/20/24 12:09
ABG [Arterial Blood Gas] Urgent
%Oxygen/Room Air: on oxygen
07/20/24 13:01
Ipratropium/Albuterol Sulfate [Duoneb] 3 ml INH R NOW STA
MethylPREDNISolone PF [Solu-Medrol Pf] 125 mg IV NOW STA
07/20/24 13:53
Admit/Transfer Patient As Directed
Co-Sign Provider:
Level of Care: Inpatient admission
Assign to:: IMU- Intermediate Care
Physician / Group: kate
Diagnosis: chf exacerbation
Reason for Hospitalization: chf exacerbation
Expected length of stay greater than two midnights?: Yes
ELOS- Estimated Length of Stay in days: 2
I certify the patient meets the requirements for IP care: Yes
Code Status As Directed
Resuscitation Status: Full Code
PRN Pain Medication Management As Directed
May give lesser potent ordered pain med per pt: Yes
preference::
Protocol:: Medication orders for pain may be administered in a
manner that supports deferring to patient preference
when the pt is:
- Requesting an ordered lesser potent pain medication.
Least to most potent pain medications are defined
as: acetaminophen < NSAID < tramadol < opioids
(morphine, oxycodone, hydromorphone).
- Requesting a lesser dose of the same medication IF
ORDERED.
- Requesting a less intrusive route of administration
if both routes are prescribed by the provider (PO <
IV).
07/20/24 14:23
COVID-19 Antigen Urgent
Source: Nasal Swab
Abnormal Lab Results
07/20/24 07/20/24
11:55 12:09
Hgb 16.8 H g/dL
(12.0-16.0)
Hct 50.0 H %
(37.0-47.0)
MCV 102.2 H fL
(81.0-99.0)
MCH 34.4 H pg
(27.0-31.0)
RDW 17.5 H %
(11.5-14.5)
MPV 11.9 H fL
(7.4-10.4)
Absolute Neuts (auto) 6.8 H 10^3/uL
(1.4-6.5)
Absolute Monos (auto) 0.8 H 10^3/uL
(0.1-0.6)
Lymphocytes % 18.9 L %
(20.5-51.1)
PT 22.4 H Sec
(11.4-14.6)
pH 7.46 H
(7.35-7.45)
pO2 69 L mmHg
(83-108)
Sodium 134 L mmol/L
(135-145)
Chloride 94 L mmol/L
(98-107)
BUN 58 H mg/dl
(7-17)
Creatinine 1.3 H mg/dL
(0.6-1.0)
Glucose 148 H mg/dl
(70-99)
Total Bilirubin 4.3 H mg/dl
(0.2-1.3)
AST 44 H U/L
(14-36)
Alkaline Phosphatase 303 H U/L
(38-126)
07/20/24 11:55
07/20/24 11:55
Vital Signs
Initial and Last Documented VS:
Initial Vital Signs
Temp Pulse Resp BP Pulse Ox
36.3 C 69 20 125/84 71
07/20/24 11:25 07/20/24 11:25 07/20/24 11:25 07/20/24 11:25 07/20/24 11:25
Last Documented Vital Signs
Temp Pulse Resp BP Pulse Ox
36.3 C 93 20 123/93 93
07/20/24 11:25 07/20/24 14:15 07/20/24 14:15 07/20/24 14:01 07/20/24 13:45
*Critical Care Note
Total Time (30-74mins, 75-104mins- exclusive of procedures): 55min
comment:
The patient was markedly hypoxic upon arrival. She is responding to nasal cannula oxygen as well as IV treatment. Vital signs been very closely monitored. She requires admission to the hospital. Considered BiPAP however overall is improving on
nasal cannula oxygen.
ED Attending Note
-
Portions of this chart may have been created with voice recognition software.� Occasional wrong word or��sound alike� substitutions may have occurred due to the inherent limitations of voice recognition software.
Discharge Plan
Departure
Patient Disposition: Admit
Date of Disposition: 07/20/24
Time of Disposition: 13:11
Presentation/result/management discussed w/ accepting MD/DO: Hospitalist
Discharge Problem:
CHF (congestive heart failure)
Interventions
Interventions:
*Risk Screen - Suicide Last Done: 07/20/24 11:25
*General Assessment Last Done: 07/20/24 11:25
*Neglect/Abuse Screening Last Done: 07/20/24 11:25
*ED- Fall Risk Assessment Last Done: 07/20/24 11:58
*ED COVID-19 Vaccine History Last Done: 07/20/24 11:58
ED- Pulmonary Assessment Last Done: 07/20/24 12:10
ED-Psychological Assessment Last Done: 07/20/24 13:23
ED- Neurological Assessment Last Done: 07/20/24 12:10
ED- Cardiac Assessment Last Done: 07/20/24 12:10
[2024-07-20 12:15] LABS: % Basophils 0.8 % (0-2); % Eosinophils 1.8 % (0-6); % Immature Granulocytes 0.4 % (0-0.5); % Lymphocytes 18.9 % (20.5-51.1); % Monocytes 7.7 % (1.7-9.3); % Neutrophils 70.4 % (42.2-75.2); Absolute Basophils 0.1 10^3/uL (0-0.2); Absolute Eosinophils 0.2 10^3/uL (0-0.7); Absolute Lymphocytes 1.8 10^3/uL (1.2-3.4); Absolute Monocytes 0.8 10^3/uL (0.1-0.6); Absolute Neutrophils 6.8 10^3/uL (1.4-6.5); Hemoglobin 16.8 g/dL (12.0-16.0); Mean Corp Hgb Conc. 33.6 g/dL (33.0-37.0); Mean Corpuscular Hgb 34.4 pg (27.0-31.0); Mean Corpuscular Volume 102.2 fL (81.0-99.0); Mean Platelet Volume 11.9 fL (7.4-10.4); Nucleated Red Blood Cells % 0.3 %; Platelet Count 218 10^3/uL (130-400); Red Blood Cell Count 4.89 10^6/uL (4.20-5.40); Red Cell Dist. Width 17.5 % (11.5-14.5); White Blood Cell Count 9.7 10^3/uL (4.8-10.8)
[2024-07-20 12:21] LABS: HCO3 24.2 mmol/L (21-28); O2 Saturation % 94.6 % (94-98); PCO2 34 mmHg (32-35); PO2 69 mmHg (83-108); pH 7.46 (7.35-7.45)
[2024-07-20 12:27] LABS: INR 1.91; PT 22.4 Sec (11.4-14.6)
[2024-07-20 12:36] LABS: ALT (SGPT) 32 U/L (0-35); AST (SGOT) 44 U/L (14-36); Alkaline Phosphatase 303 U/L (38-126); Blood Urea Nitrogen 58 mg/dl (7-17); Calcium 10.1 mg/dl (8.4-10.2); Carbon Dioxide 25 mmol/L (22-30); Chloride 94 mmol/L (98-107); Estimated Creatinine Clearance 52 ml/min; Glucose 148 mg/dl (70-99); Potassium 3.9 mmol/L (3.5-5.1); Sodium 134 mmol/L (135-145); Total Bilirubin 4.3 mg/dl (0.2-1.3); Total Protein 8.1 g/dl (6.3-8.2); eGFR 44.24
[2024-07-20 12:40] LABS: NT-proBNP 1270 pg/ml; Troponin I 0.015 ng/ml
[2024-07-20] MEDS: BUMEX 1 MG IV (13:07)
[2024-07-20] MEDS: DUONEB 3 ML INH (13:19)
[2024-07-20] MEDS: SOLU-MEDROL PF 125 MG IV (13:19)
--- NOTE | 2024-07-20 13:57 | HPS.HSE ---
Addendum entered and electronically signed by Iglesia James MD 07/20/24 14:43:
Family requesting psychiatry evaluation.
Original Note:
Family Physician
-
Family Physician: Sanjay Carrera
Chief Complaint
-
confusion
History of Present Illness
68-year-old female past medical history of atrial fibrillation on Coumadin, aortic stenosis status post TAVR, HFpEF, COPD, chronic hypoxemic respiratory failure on 3 L, obstructive sleep apnea, pulmonary hypertension, moderate to severe tricuspid
regurgitation, hypertension, hyperlipidemia, anxiety, Raynaud's, meningioma, presenting after her son received a text was just gibberish. She was unable to recognize the layout of her house. She was crying for some time. She was noted to be short
of breath and hypoxic with sats in the 50s since then. Was noted to be cyanotic at home. states she is up 6 pounds from her dry weight and she has increased lower extremity swelling since her recent admission. She has been urinating well.
No fevers or chills, worsening cough, nausea vomiting or diarrhea or urinary symptoms.
She had a syncopal episode last week with fall and was taken to [facility] with subsequent follow-up with her business control specialist Dr. Alejandro. She has a court recording monitor on since then.
Patient was just hospitalized from 04/29 to 05/05 for CHF exacerbation. She was diuresed. She was also found to be positive for influenza and treated with Tamiflu.
She has been feeling very depressed since her recent admission.
Medical History
Past Medical History
Past Medical History: Reports Other (atrial fibrillation on Coumadin, aortic stenosis status post TAVR, HFpEF, COPD, chronic hypoxemic respiratory failure on 3 L, obstructive sleep apnea, pulmonary hypertension, moderate to severe tricuspid
regurgitation, hypertension, hyperlipidemia, anxiety, Raynaud's, meningioma,)
Past Surgical History: Reports None
Social History
Tobacco: Non-smoker
Alcohol: None
Drug: None
Family History
Family History: Not pertinent
Allergies / Home Medications
Allergies reflects when Allergies were last updated in [employer].
Home Medications with original date entered in [employer]
Allergy/Medication List:
Allergies
Allergy/AdvReac Type Severity Reaction Status Date / Time
amoxicillin trihydrate Allergy patient Verified 07/20/24 11:25
[From Augmentin] states
severe
nausea and
intestinal
pain
cat dander Allergy Sinus Verified 07/20/24 11:25
congestion
cigarette smoke Allergy Positive Verified 07/20/24 11:25
skin test
to tobacco
dog dander Allergy Sinus Verified 07/20/24 11:25
congestion
grass pollen Allergy Sinus Verified 07/20/24 11:25
congestion,
cough
levofloxacin [From Levaquin] Allergy GI Symptoms Verified 07/20/24 11:25
mold Allergy Sinus Verified 07/20/24 11:25
congestion,
cough
Sulfa (Sulfonamide Allergy INTESTINAL Verified 07/20/24 11:25
Antibiotics) PAIN
tree and shrub pollen Allergy Sinus Verified 07/20/24 11:25
congestion,
cough
Home Medications
duloxetine 60 mg capsule,delayed release 60 mg PO DAILY Mental Health/Anxiety 01/11/14
atorvastatin 10 mg tablet 10 mg PO DAILY High cholesterol 02/10/22
metformin 500 mg tablet 500 mg PO BID Diabetes 02/10/22
metoprolol succinate 50 mg tablet,extended release 24 hr 100 mg PO DAILY Blood pressure 02/10/22
revefenacin 175 mcg/3 mL solution for nebulization (Yupelri) 175 mcg inhalation R DAILY Lung/breathing issues 02/10/22
arformoterol 15 mcg/2 mL solution for nebulization (Brovana) 2 ml inhalation R BID Lung/breathing issues 04/02/22
budesonide 0.5 mg/2 mL suspension for nebulization 0.5 mg inhalation R BID Lung/breathing issues 04/02/22
cyanocobalamin (vitamin B-12) 2,500 mcg sublingual tablet (Vitamin B-12) 2,500 mcg sublingual DAILY Supplement 04/02/22
calcium 500 mg (as carbonate)-vitamin D3 5 mcg (200 unit) tablet (Oyster Shell Calcium-Vitamin D3) 500 mg PO DAILY Supplement 04/08/22
biotin 10,000 mcg chewable tablet (Hair, Skin and Nails (biotin)) 10,000 mcg PO DAILY Supplement 01/19/24
digoxin 125 mcg (0.125 mg) tablet 125 mcg PO SUTUTHSA@0800 Heart Disease/Condition 03/03/24
metoprolol succinate 50 mg tablet,extended release 24 hr 50 mg PO HS Arrhythmia 03/03/24
potassium chloride 20 mEq tablet,extended release 20 meq PO DAILY #3 tabs 03/08/24
gabapentin 300 mg capsule 300 mg PO HS Pain 04/29/24
gabapentin 300 mg capsule 600 mg PO DAILY@1500 Pain 04/29/24
ropinirole 0.25 mg tablet 0.25 mg PO HS Neurological Condition 04/29/24
temazepam 15 mg capsule 15 mg PO HS Sleep 04/29/24
therapeutic multivitamin 1 tab PO DAILY Supplement 04/29/24
torsemide 20 mg tablet 40 mg (2 x 20 mg) PO BID@0800,1600 30 days #60 tabs 05/05/24
empagliflozin 10 mg tablet (Jardiance) 10 mg PO DAILY 07/20/24
warfarin 2 mg tablet 2 mg PO DAILY 07/20/24
Review of Systems
-
History Source: Patient
A 12 point ROS was completed and negative except as noted: Yes
Constitutional: Reports No Symptoms
EENT: Reports No Symptoms
Respiratory: Reports See HPI
Cardiac: Reports See HPI
Abdomen/GI: Reports No Symptoms
: Reports No Symptoms
Musculoskeletal: Reports No Symptoms
Skin: Reports No Symptoms
Neurological: Reports No Symptoms
Endocrine: Reports No Symptoms
Hematologic/Lymphatic: Reports No Symptoms
Psych: Reports No Symptoms
Physical Exam
Vital Signs
Vital Signs
Temp Pulse Resp BP Pulse Ox
97.4 F 91 19 104/78 96
07/20/24 11:25 07/20/24 13:07 07/20/24 13:00 07/20/24 13:07 07/20/24 13:00
Physical Exam
General: Well Developed, Well Nourished and No Apparent Distress
HEENT: NormoCephalic, Moist mucous membranes and Atraumatic
Respiratory: Clear
Cardiac: S1/S2, Regular Rhythm and Peripheral Edema; No Murmur or Rub
GI: Soft, Non Tender, Non Distended and Normal Bowel Sounds; No Organomegaly
Rectal: Deferred by Provider
Musculoskeletal: No Clubbing, No Cyanosis and No Edema
Skin: No Rash
Neuro: Nonfocal/grossly intact
Laboratory Results
-
07/20/24 11:55
07/20/24 11:55
Laboratory Results
PT 22.4 Sec (11.4-14.6) H 07/20/24 11:55
INR 1.91 07/20/24 11:55
pH 7.46 (7.35-7.45) H 07/20/24 12:09
pCO2 34 mmHg (32-35) 07/20/24 12:09
pO2 69 mmHg (83-108) L 07/20/24 12:09
HCO3 24.2 mmol/L (21-28) 07/20/24 12:09
Total Bilirubin 4.3 mg/dl (0.2-1.3) H 07/20/24 11:55
AST 44 U/L (14-36) H 07/20/24 11:55
ALT 32 U/L (0-35) 07/20/24 11:55
Alkaline Phosphatase 303 U/L (38-126) H 07/20/24 11:55
Troponin I 0.015 ng/ml 07/20/24 11:55
Data Reviewed
-
Lab Data: Labs Reviewed by me
Old Records: Reviewed
Impression/Plan
-
IMPRESSION:
PLAN:
# Metabolic encephalopathy/acute on chronic hypoxemic respiratory failure secondary to acute HFpEF exacerbation, underlying COPD/obstructive sleep apnea/obesity hypoventilation
# Chronic hypoxemic respiratory failure on 3 L baseline
-Lungs sound clear
-Patient given 1 mg Bumex, DuoNeb, methylprednisolone
-VBG shows pO2 of 69, pH of 7.46, pCO2 of 34
-BNP of 1270 from 2400 previously
-Chest x-ray shows prominence of bronchovascular markings possibly chronic versus mild vascular congestion
-Patient on 5 L oxygen currently
-Patient on 80 torsemide daily so we will start Bumex 2 mg twice daily
-Check COVID
-Check urinalysis, bladder scan protocol
-Cardiology consulted
# AIYANA likely cardiorenal
-Monitor with increased diuresis
#Recent syncopal episode
-Patient with court recording monitor prescribed by [facility] Cardiology
Bilateral lower extremity lymphedema with traumatic injuries
-Legs do not appear infected
-Outpatient follow-up with lymphedema clinic
Anxiety/depression
-Outpatient psychiatry follow-up
Persistent atrial fibrillation
-Continue Coumadin
-Continue metoprolol
-Continue digoxin
Aortic stenosis status post TAVR
COPD
-Continue Brovana, Yupelri
Obstructive sleep apnea
Pulmonary hypertension
Moderate to severe tricuspid regurgitation
Essential hypertension
Type 2 diabetes
-Hold metformin
-Continue Jardiance
Hyperlipidemia
-Continue statin
Anxiety
-Continue temazepam, duloxetine
Raynaud's
Meningioma
Obesity
Hyperlipidemia
History of right posterior CVA
History of right parietal meningioma
-Following with Dr. Love
Presumed restless legs
-Continue ropinirole, gabapentin
Full code
DVT prophylaxis�heparin
Cardiac diet
--- NOTE | 2024-07-20 14:55 | CON.CAR ---
Addendum entered and electronically signed by Socorro Avalos PA-C 07/21/24 07:49:
to accompany below consultation:
GEN: No distress, awake but lethargic, oriented to self, place. on supp O2. obese
HEENT: supple, anicteric, mmm, eomi
LUNGS: CTA anterolaterally, no wheezes
CV: Irreg, S1/S2, 1/6 murmur
ABD: soft, BS+, NT
EXT: No cyanosis, clubbing. LE tense with 3-4+ edema to level of thighs. suspected chronic discoloration of B/L LE with several areas of scabbed/healing wounds
NEURO: lethargic
Addendum entered and electronically signed by Tiburcio Coon MD 07/20/24 17:29:
Attending addendum: Patient seen and examined. PA note reviewed. Most of the history was obtained from as the patient was sleepy but arousable. She was not interested in much conversation and was just started on BiPAP therapy. Briefly,
this is a 68-year-old female with a past medical history notable for aortic stenosis with history of a 29 mm evolute transcatheter aortic valve placement on 04/30/2022. Transthoracic echocardiograms pre and postprocedure had estimated pulmonary
artery systolic pressures around 50 mmHg. Her estimated pulmonary artery pressures on the most recent echocardiogram from 07/10/2024 was estimated at 79 mmHg. She has a history of morbid obesity, chronic hypoxia on 3 L of nasal cannula at home,
COPD, and history of pulmonary embolism. She has equipment for noninvasive ventilation at home but her says her compliance is minimal. He describes significant PND/orthopnea.
She was admitted to [facility] following a fall versus syncopal episode. Her blood pressure was low. She was kept for a brief period of time then discharge and was seen. This morning her obtained a pulse oximetry reading
of 62%. She was much more confused and less interactive and brought to [facility] for further evaluation. Her O2 sats remained in the mid 80s on nonrebreather. She was just placed on BiPAP. She is sleepy but interactive with questions.
Her states she has not been doing well for a while raphael after some of the psychiatric meds were changed / stopped.
PE:
GEN: Morbidly obese. Bipap mask in place. She will try to answer questions but falls to sleep quickly.
HEENT: NC/AT, sclera are anicteric. BiPap mask present.
LUNGS: Clear in the anterior lung lui. No wheezing. Expiratory phase is not prolonged
CV: Irregularly irreg. Normal S1/S2. Murmur: Soft murmur USB
ABD : Soft, NT, ND, No HSM. Bowel sounds are present.
EXT: Edematous, tense, eschar on right calf.
NEURO: Moves all extremities. Answers questions
-07/10/2024: Echo: LV: Hyperdynamic. Estimated ejection fraction is 70-75%. A-fib. RV: Severely dilated and hypokinetic, LA: Mildly dilated, RA: Severely dilated, MV: Calcified mitral annulus. Mean gradient is 5. Trace MR. AV: 29 mm Evolut
valve is in the aortic position with a mean gradient of 3 mmHg. Trace AI. TV: Mild-severe TR with severe pulmonary hypertension and estimated pulmonary artery systolic pressures of 79 mmHg
-03/03/2024: Echo: LV: Normal size and function. EF 70-75%. RV: Severely dilated, LA: Dilated, RA: Dilated, MV: Mean mitral valve gradient is 5. Trace MR. AV: 29 mm Medtronic Evolut valve is present with a mean gradient of 7. TV.
Moderate-severe TR with estimated PAP 80 mmHg
-01/29/2024: Echo: LV: EF 70-75%. RV: Dilated with septal flattening in systole and diastole consistent with RV pressure/volume overload. LA: Mildly dilated, RA: Moderately dilated, MV: Trace MR, AV: A 29 mm Medtronic Evolut valve is in the aortic
position with a mean gradient of 5 mmHg. No AI. TV: Mild TR with estimated PAP of 45-50 mmHg
IMPRESSION:
-Acute on chronic respiratory insufficiency / hypoxia
-Severe pulmonary hypertension
-Recent syncope
-Noncompliance with O2 at times and with nocturnal noninvasive ventilation
-Permanent atrial fibrillation
-History of PE
-COPD
RECOMMENDATIONS:
-Bipap just starting
-Noncompliant with nocturnal ventilation
-Gentle iv diuresis
-Agree with psych evaluation as her stats she has not been doing well laterly
Original Note:
Consultation
Consultation Request
Date/Time Consultation Performed: 07/20/24
Requesting Provider: Dr. Cary
Performing Provider: Socorro Avalos PA-C for Dr. Coon
Reason for Consultation: CHF
Medical History
-
Chief Complaint: CHF
History of Present Illness:
Patient is a 68-year-old female with past medical history of heart failure with preserved EF, persistent atrial fibrillation, history of TAVR, severe pulmonary hypertension, morbid obesity, COPD, history of pulmonary embolus who underwent outpatient
echocardiogram at 07/10/2024. Upon returning home she had a fall versus syncopal episode while getting out of the car at home and was taken to [facility]. Her blood pressure was reportedly very low, however otherwise her workup
was apparently unrevealing. She was then seen in our office 07/12/2024 and had CAM monitor placed. She is still wearing the monitor at this time. At last office visit 06/01/2024, Aldactone was added and given low blood pressure at time of syncopal
episode, this was stopped as of 07/12 office visit, and her torsemide was increased to 40 mg twice daily Wednesday and 40 mg every morning and 20 mg every afternoon all other days. Her med list notes torsemide 40 mg twice daily without
additional distinction. Her states last evening he gave her her 10 PM medications and went to bed, however this morning he realized she had never taken them. This did not include a diuretic. He states this morning he and his son received
a text message from patient which was gibberish. He came out to the living room where she was sitting and she was very confused. He states she did not realize that she was in her own home, which she has lived in for 40 years. He took her pulse ox
which was low at 62%. Of note she is chronically on 3 L nasal cannula. She also complained of shortness of breath. Blood pressure was on low side and blood sugar was okay. Reports she gained 6 pounds overnight. He denies recent dietary changes
or cardiac medication changes. she was brought to emergency room for further evaluation and is currently requiring 6 L nasal cannula. proBNP lower than prior at 1200. Weight down 4 pounds from office visit 06/01/2024. Cardiology consulted for
evaluation. reports her mental status is now improved compared to this morning, however not yet back to baseline. and sister at bedside also endorse significant issues with anxiety/depression/insomnia which has been worsening since
she was taken off majority of her psych meds after an admission for serotonin syndrome.
Past medical history:
Admission to [facility] 07/10-07/11/24 for syncope vs fall
Heart failure preserved ejection fraction
Persistent AFib
Chronic coumadin therapy, managed by PCP
Essential HTN
DM2
h/o TAVR 2021
Severe pulm HTN
COPD, chronically on 3L NC
h/o R post CVA
h/o R parietal meningioma
CHAS: intolerant of CPAP
Hyperlipidemia
Morbid obesity
Chronic lymphedema
History of PE
Uncharacterized liver lesion
Subclinical hyperthyroidism
History of gastric bypass
Depression/anxiety/insomnia with history of serotonin syndrome admission 03/2024
Polypharmacy
History of falls
Past Medical History
Past Medical History: Arrhythmias and CHF
Past Surgical History: Cardiac
Social History
Tobacco: Non-Smoker
Alcohol: None
Drug: None
Personal:
Living: With Family
Employment: Not Employed
Family History
Family History: Reviewed & Not Pertinent
Allergies / Home Medications
Allergy/AdvReac Type Severity Reaction Status Date / Time
amoxicillin trihydrate Allergy patient Verified 07/20/24 11:25
[From Augmentin] states
severe
nausea and
intestinal
pain
cat dander Allergy Sinus Verified 07/20/24 11:25
congestion
cigarette smoke Allergy Positive Verified 07/20/24 11:25
skin test
to tobacco
dog dander Allergy Sinus Verified 07/20/24 11:25
congestion
grass pollen Allergy Sinus Verified 07/20/24 11:25
congestion,
cough
levofloxacin [From Levaquin] Allergy GI Symptoms Verified 07/20/24 11:25
mold Allergy Sinus Verified 07/20/24 11:25
congestion,
cough
Sulfa (Sulfonamide Allergy INTESTINAL Verified 07/20/24 11:25
Antibiotics) PAIN
tree and shrub pollen Allergy Sinus Verified 07/20/24 11:25
congestion,
cough
�Medication �Instructions �Recorded �Confirmed �Type
duloxetine 60 mg capsule,delayed 60 mg PO DAILY Mental 01/11/14 07/20/24 History
release Health/Anxiety
atorvastatin 10 mg tablet 10 mg PO DAILY High cholesterol 02/10/22 07/20/24 History
metformin 500 mg tablet 500 mg PO BID Diabetes 02/10/22 07/20/24 History
metoprolol succinate 50 mg 100 mg PO DAILY Blood pressure 02/10/22 07/20/24 History
tablet,extended release 24 hr
revefenacin 175 mcg/3 mL solution 175 mcg inhalation R DAILY 02/10/22 07/20/24 History
for nebulization (Yupelri) Lung/breathing issues
arformoterol 15 mcg/2 mL solution 2 ml inhalation R BID 04/02/22 07/20/24 History
for nebulization (Brovana) Lung/breathing issues
budesonide 0.5 mg/2 mL suspension 0.5 mg inhalation R BID 04/02/22 07/20/24 History
for nebulization Lung/breathing issues
cyanocobalamin (vitamin B-12) 2,500 mcg sublingual DAILY 04/02/22 07/20/24 History
2,500 mcg sublingual tablet Supplement
(Vitamin B-12)
calcium 500 mg (as 500 mg PO DAILY Supplement 04/08/22 07/20/24 History
carbonate)-vitamin D3 5 mcg (200
unit) tablet (Oyster Shell
Calcium-Vitamin D3)
biotin 10,000 mcg chewable tablet 10,000 mcg PO DAILY Supplement 01/19/24 07/20/24 History
(Hair, Skin and Nails (biotin))
digoxin 125 mcg (0.125 mg) tablet 125 mcg PO SUTUTHSA@0800 Heart 03/03/24 07/20/24 History
Disease/Condition
metoprolol succinate 50 mg 50 mg PO HS Arrhythmia 03/03/24 07/20/24 History
tablet,extended release 24 hr
potassium chloride 20 mEq 20 meq PO DAILY #3 tabs 03/08/24 07/20/24 Rx
tablet,extended release
gabapentin 300 mg capsule 300 mg PO HS Pain 04/29/24 07/20/24 History
gabapentin 300 mg capsule 600 mg PO DAILY@1500 Pain 04/29/24 07/20/24 History
ropinirole 0.25 mg tablet 0.25 mg PO HS Neurological 04/29/24 07/20/24 History
Condition
temazepam 15 mg capsule 15 mg PO HS Sleep 04/29/24 07/20/24 History
therapeutic multivitamin 1 tab PO DAILY Supplement 04/29/24 07/20/24 History
torsemide 20 mg tablet 40 mg (2 x 20 mg) PO BID@0800,1600 05/05/24 07/20/24 Rx
30 days #60 tabs
empagliflozin 10 mg tablet 10 mg PO DAILY 07/20/24 07/20/24 History
(Jardiance)
warfarin 2 mg tablet 2 mg PO DAILY 07/20/24 07/20/24 History
Review of Systems
-
History Source: Patient and Family
All other systems: Negative unless noted
Physical Exam
Vital Signs
Temp Pulse Resp BP Pulse Ox
97.4 F 93 20 123/93 93
07/20/24 11:25 07/20/24 14:15 07/20/24 14:15 07/20/24 14:01 07/20/24 13:45
Lab Results
07/20/24 11:55
07/20/24 11:55
Troponin I 0.015 ng/ml 07/20/24 11:55
Mny-O-Alesjrltdbs Pept 1270 pg/ml 07/20/24 11:55
Impression / Plan
-
Primary Vp [employer]: Dr. CHAVA Alejandro
Assessment:
Confusion/metabolic encephalopathy
Acute on chronic hypoxemic respiratory failure
Acute on chronic heart failure with preserved EF
AIYANA
Admission to [facility] 07/10-07/11/24 for syncope vs fall
LE wounds
Persistent AFib
Chronic coumadin therapy, managed by PCP
Essential HTN
DM2
h/o TAVR 2021
Severe pulm HTN
COPD, chronically on 3L NC
h/o R post CVA
h/o R parietal meningioma
CHAS: intolerant of CPAP
Hyperlipidemia
Morbid obesity
Chronic lymphedema
History of PE
Uncharacterized liver lesion
Subclinical hyperthyroidism
History of gastric bypass
Depression/anxiety/insomnia with history of serotonin syndrome admission 03/2024
Polypharmacy
History of falls
Echo 07/10/2024: EF 70 to 75%, evidence of RV pressure and volume overload, mild concentric LVH, MAC, mild MS with peak/mean gradients 9/5 mmHg, trace MR, number 29 mm Medtronic evolute TAVR with peak/mean gradient 6/3 mmHg, moderate to severe TR,
PAP 79 mmHg, severely dilated right heart, no significant change compared to prior
Plan:
-Patient presents with confusion and TME likely secondary to acute on chronic hypoxemic respiratory failure with CHF/COPD/obesity/CHAS/pulm HTN.
-currently requiring 6L NC, normally on 3L NC as OP. wean as able
-Chest x-ray with no evidence of pneumonia, and mild vascular congestion not felt to be able to be excluded. proBNP lower than prior at 1200. Will attempt diuresis as appears volume overloaded on exam. currently on IV bumex 2mg BID. as OP she is
on torsemide 40mg BID. Cr presently 1.3. Appears she was taking torsemide 40 mg twice daily over the last week, although was prescribed 40 mg twice daily Wednesday and 40 mg every morning with 20 mg every afternoon all other days.
weight in office 07/12 was 273 pounds.
-CHF education
-Continue Toprol, Farxiga (autosubstituted for jardiance). Spironolactone was stopped 07/12 due to hypotension and syncope.
-Recent echo with results as above, consider follow-up study in setting of acute events
-Continue lower extremity compression therapy and wound care
-Check dig level. In rate controlled A-fib on review of EKG and telemetry in ER
-INR mildly subtherapeutic at 1.91 on admission. On 2 mg daily as outpatient
-Patient's and sister present at bedside relay significant concerns about worsening depression/anxiety/insomnia since stopping many of her psychiatric medications after admission for serotonin syndrome 03/2024. Discussed with hospitalist
and psychiatry, plan for psych consult.
-would attempt to consolidate medications as able given polypharmacy.
-will need PT/OT.
Data Reviewed
-
EKG: Tracing Personally Visualized and interpreted
Radiology: Report Reviewed by me
Medical Tests (Nuc Med, Echo etc): Report Reviewed by me
Labs: Labs Reviewed by me
Old Records: Reviewed
[2024-07-20 15:02] LABS: COVID-19 Antigen Negative (Negative)
--- NOTE | 2024-07-20 15:38 | CM ---
Patient seen in ED with . Patient on O2. Patient sleepy, answered assessment questions. Patient lives with in a 2 story home with first floor set up. Patient has a walker, cane, wheelchair, home O2 concentrator of 5 liters,
non invasive ventilator at home that patient attempts to use 2 hours daily per . Per when the EMT's have visited the home in the past they have turned up the liter flow on the home concentrator due to long hose for the O2 to 4.5
liters. Patient has had [facility] and reports they have been wonderful but no SNF or Rehab stays. Patient PCP Dr. Faith from [facility] and uses the [facility] in [place]. Patient states he works 3 days week and patient is alone
during those days. Patient states that patient is dealing with depression and they have asked for Dr. Benson to see her. Patient stated that patient does not sleep often for days at a time, up to a week. She will sleep with the non
invasive vent. Patient indicated that he wants to keep patient home but feels that he is approaching the max that he can handle. is willing to consider SNF if physicians feel it needed. CM will continue to follow for discharge
planning needs.
Plan;home with VN vs SNF
[2024-07-20 16:01] LABS: Digoxin 0.5 ng/ml (0.8-2.0)
[2024-07-20 17:06] LABS: Glucose - Point of Care 130 mg/dl (70-99)
--- NOTE | 2024-07-20 18:15 | PTCARENOTE ---
Patient received from ER. Patient awake and alert on BiPAP, asking to come off of it. Dinner order was placed and patient agreeable to come off when the food arrived. Admission done prior to arrival. Second RN present at bedside for skin
assessment. No fluids through IV. Multiple wounds noted, wound consult to be placed. Oriented to room. Call avitia in reach.
[2024-07-20 18:58] LABS: Glucose - Point of Care 139 mg/dl (70-99)
[2024-07-20] MEDS: NOVOLOG FLEXPEN-LOW RESISTANCE SC (19:29)
[2024-07-20] MEDS: NEURONTIN PO (19:44)
[2024-07-20] MEDS: VENTOLIN NEBULES 2.5 MG INH (20:00)
[2024-07-20] MEDS: PULMICORT 0.5 MG INH (20:00)
[2024-07-20] MEDS: BUMEX 2 MG IV (20:03)
[2024-07-20 20:24] LABS: Urine Albumin 1+ (Neg - Trace); Urine Bilirubin Negative (Negative); Urine Character Slightly Cloudy (Clear); Urine Color Yellow; Urine Glucose 2+ (Negative); Urine Ketone Negative (Negative); Urine Leukocyte 3+ (Negative); Urine Nitrite Positive (Negative); Urine Occult Blood 3+ (Negative); Urine Specific Gravity 1.015 (<1.030); Urine Urobilinogen Negative (Neg - 1+)
[2024-07-20 20:35] LABS: Urine Squamous Cell 0-2 /LPF (Few)
[2024-07-20 20:36] LABS: Urine Bacteria Many (Negative); Urine White Cell 50-60 /HPF (0-5)
[2024-07-20] MEDS: RESTORIL 15 MG PO (21:42)
[2024-07-20] MEDS: DESENEX/MITRAZOL/ZEASORB 1 APPLIC TOPICAL (21:42)
[2024-07-20] MEDS: NEURONTIN 300 MG PO (21:42)
[2024-07-20] MEDS: TOPROL XL 50 MG PO (21:42)
[2024-07-20] MEDS: REQUIP 0.25 MG PO (21:42)
[2024-07-20 23:44] LABS: B.E. 1.2 mmol/L; O2 Saturation % 99.6 % (94-98); O2 Therapy 15L; PCO2 41 mmHg (32-35); PO2 131 mmHg (83-108); pH 7.41 (7.35-7.45)
--- NOTE | 2024-07-20 23:50 | W.PN.UPDATE ---
Addendum entered and electronically signed by LARRY iGll 07/21/24 01:16:
ua looks posiive for uti (allergy to amoxicillin, levaquin, sulfa) tolerated zosyn in mar 2024 admit. Will start zosyn until culture returns
Original Note:
Update Note
Progress Note Update
RN reports oxygen level demands increasing iniitally on 6L-->15L pulse of reading 86% but pt also with signigicant raynauds and pleth is poor. Currently pulse ox sensor on ear. ABG checked for more accurate picture---on ABG po2 131 and abg 02 99.6%.
Will have RN titrate o2 back down.
[2024-07-21] VITALS (18 sets, daily range): BP systolic 84–124; BP diastolic 60–96; PULSE 90–93; O2SAT 93–95; BMI 49.1
--- NOTE | 2024-07-21 02:16 | PTCARENOTE ---
Unable to obtain good pulsox overnight due to raynauds disease. Patient limbs and lips blue. sp02 reading in the 70s without a good pleth. Placed on midflow 15 liters from 6l. senior corporate recruiter provider made aware and ordered ABG. p02 131. Oxygen turned back
down to 6 liters. Urinalysis sent and results relayed to extension worker provider. Patient started on IV abx for presumed UTI.
[2024-07-21] MEDS: ZOSYN 50 IV ×4 (02:42→21:33)
[2024-07-21 04:34] LABS: Hematocrit 45.2 % (37.0-47.0); Hemoglobin 15.7 g/dL (12.0-16.0); Mean Corp Hgb Conc. 34.7 g/dL (33.0-37.0); Mean Corpuscular Volume 100.7 fL (81.0-99.0); Mean Platelet Volume 11.7 fL (7.4-10.4); Platelet Count 184 10^3/uL (130-400); Red Blood Cell Count 4.49 10^6/uL (4.20-5.40); Red Cell Dist. Width 17.3 % (11.5-14.5); White Blood Cell Count 5.6 10^3/uL (4.8-10.8)
[2024-07-21 04:42] LABS: INR 1.72; PT 20.6 Sec (11.4-14.6)
[2024-07-21 05:00] LABS: ALT (SGPT) 27 U/L (0-35); AST (SGOT) 40 U/L (14-36); Albumin 3.6 g/dl (3.5-5.0); Alkaline Phosphatase 261 U/L (38-126); Blood Urea Nitrogen 54 mg/dl (7-17); Calcium 9.6 mg/dl (8.4-10.2); Carbon Dioxide 25 mmol/L (22-30); Chloride 98 mmol/L (98-107); Estimated Creatinine Clearance 62 ml/min; Glucose 224 mg/dl (70-99); Potassium 4.1 mmol/L (3.5-5.1); Sodium 135 mmol/L (135-145); Total Bilirubin 3.6 mg/dl (0.2-1.3); Total Protein 7.5 g/dl (6.3-8.2); eGFR 54.06
--- NOTE | 2024-07-21 05:23 | PTCARENOTE ---
Patient with wet productive cough and desatted to the 70s while awake. Patient complaining of SOB with some discomfort. Lungs sound wet and patient with b/l LE pedal edema. Placed on 4 liters NC. mattress packer provider made aware and ordered stat flu,
covid, bnp and for fluids to be held pending patient status.
[2024-07-21] MEDS: SPIRIVA RESPIMAT 2.5 MCG 2 PUFF INH (07:59)
[2024-07-21] MEDS: VENTOLIN NEBULES 2.5 MG INH ×4 (07:59→21:03)
[2024-07-21] MEDS: PULMICORT 0.5 MG INH ×2 (07:59→21:03)
--- NOTE | 2024-07-21 08:02 | PTCARENOTE ---
Patient received from retail shift supervisor. Patient is resting comfortably in bed. AAO with some confusion, VSS. No events noted overnight. No complaints of pain at this time. Patient currently on 5L Midflow N/C, did not wear BiPAP overnight.
Continuing ABX. ECHO to be done today. Wound consult placed for multiple wounds. Call avitia in reach.
[2024-07-21 09:17] LABS: Glycohemoglobin (HgbA1c) 7.4 % (4.0-5.6)
[2024-07-21] MEDS: VITAMIN B-12 2500 MCG PO (09:57)
[2024-07-21] MEDS: OSCAL 500 + D 500 MG PO (09:58)
[2024-07-21] MEDS: CYMBALTA DELAYED RELEASE 60 MG PO (09:58)
[2024-07-21] MEDS: FARXIGA 10 MG PO (09:58)
[2024-07-21] MEDS: THERAGRAN 1 TABLET PO (09:58)
[2024-07-21] MEDS: TOPROL XL 100 MG PO (09:59)
[2024-07-21] MEDS: BUMEX 2 MG IV ×2 (09:59→17:11)
[2024-07-21] MEDS: KCL 20 MEQ PO (09:59)
[2024-07-21] MEDS: LIPITOR 10 MG PO (09:59)
[2024-07-21] MEDS: DESENEX/MITRAZOL/ZEASORB 1 APPLIC TOPICAL ×2 (10:00→21:39)
[2024-07-21 10:06] LABS: Glucose - Point of Care 166 mg/dl (70-99)
[2024-07-21] MEDS: NOVOLOG FLEXPEN-LOW RESISTANCE 1 UNITS SC ×3 (10:45→17:23)
[2024-07-21 12:11] LABS: Glucose - Point of Care 192 mg/dl (70-99)
--- NOTE | 2024-07-21 12:32 | W.PN.HOSP.TC ---
Today's Communication/Plan
-
See plan
Assessment / Plan
Assessment / Plan
PLAN:
# Metabolic encephalopathy 2/2 UTI/acute on chronic hypoxemic respiratory failure secondary to acute HFpEF exacerbation, underlying COPD/obstructive sleep apnea/obesity hypoventilation
# Chronic hypoxemic respiratory failure on 3 L baseline
-Lungs sound clear
-Patient given 1 mg Bumex, DuoNeb, methylprednisolone
-VBG shows pO2 of 69, pH of 7.46, pCO2 of 34
-BNP of 1270 from 2400 previously
-Chest x-ray shows prominence of bronchovascular markings possibly chronic versus mild vascular congestion
-Patient on 5 L oxygen currently
-cont diuresis w bumex
On zosyn pending urine culture
-Cardiology consulted
# AIYANA likely cardiorenal
-Monitor with increased diuresis
#Recent syncopal episode
-Patient with restaurant operations manager prescribed by [facility]
Bilateral lower extremity lymphedema with traumatic injuries
-Legs do not appear infected
-Outpatient follow-up with lymphedema clinic
Anxiety/depression
-Outpatient psychiatry follow-up
Persistent atrial fibrillation
-Continue Coumadin
-Continue metoprolol
-Continue digoxin
Aortic stenosis status post TAVR
COPD
-Continue Brovana, Yupelri
Obstructive sleep apnea
Pulmonary hypertension
Moderate to severe tricuspid regurgitation
Essential hypertension
Type 2 diabetes
-Hold metformin
-Continue Jardiance
Hyperlipidemia
-Continue statin
Anxiety
-Continue temazepam, duloxetine
Raynaud's
Meningioma
Obesity
Hyperlipidemia
History of right posterior CVA
History of right parietal meningioma
-Following with Dr. Love
Presumed restless legs
-Continue ropinirole, gabapentin
Full code
DVT prophylaxis�heparin
Cardiac diet
Anticipated Discharge: > 48 hours
Subjective/Interval History
-
Date of Service: July 21, 2024
pt mentation has improved
breathing much better
o2 needs reduced
Objective Data
-
Labs:
Laboratory Results
07/21/24
04:05
WBC 5.6
Hgb 15.7
Hct 45.2
Plt Count 184
PT 20.6 H
INR 1.72
Sodium 135
Potassium 4.1
Chloride 98
Carbon Dioxide 25
BUN 54 H
Creatinine 1.1 H
Glucose 224 H
Calcium 9.6
Total Bilirubin 3.6 H
AST 40 H
ALT 27
Alkaline Phosphatase 261 H
Vital Signs:
Vital Signs
Temp Pulse Resp BP Pulse Ox
97.5 F 64 16 117/77 100
07/21/24 07:25 07/21/24 11:25 07/21/24 11:25 07/21/24 09:59 07/21/24 11:38
I&O
07/20/24 07/21/24 07/22/24
06:59 06:59 06:59
Intake Total 50 / 50
Output Total 500 / 500
Balance -450 / -450
Review of Systems
-
History Source: Patient
All other systems: Reviewed and negative
Physical Exam
-
General: Well Developed and No Apparent Distress
HEENT: Normocephalic, Atraumatic, Moist Mucous Membranes and Oxygen
Respiratory: Clear to Auscultation
Cardiac: Regular Rhythm and S1/S2; Negative Murmur, Rub or Gallop
GI: Soft, Nontender, Nondistended and Normal Bowel Sounds; Negative Organomegaly
Rectal: Deferred by Provider
Musculoskeletal: No Clubbing, No Cyanosis and No Edema
Skin: Negative Rash
Neuro: Nonfocal/Grossly Intact
Data Reviewed
-
Diagnostic Radiology: Report Reviewed by me
Labs: Labs Reviewed by me
--- NOTE | 2024-07-21 13:48 | WOUNDNOTE ---
[facility] RN NOTE: Reviewed chart and met with patient. Patient reports multiple falls recently. She and report that they are making plans for the lymphedema clinic. Patient has a stage 3 to right buttock. Wound is 100% covered with slough and
measurements have been added to work list. She has an abrasion of her left thigh that she said happened during a recent fall. There is also a fissure appearing wound of her left ring finger and right heel. Will order Mineral oil for fissures and dry
skin on LE. Local wound care with Honey gel ordered for left thigh and buttock. Reviewed plan with patient and and encouraged her to avoid sliding in recliner. Patient is on a turning schedule and Centrella Max Air. She has a good appetite.
Will confirm orders with hospitalist. RN Eladio given updated. Will follow as needed.
--- NOTE | 2024-07-21 13:50 | WOUNDNOTE ---
RIGHT LATERAL LEG
--- NOTE | 2024-07-21 13:50 | WOUNDNOTE ---
RIGHT BUTTOCK WOUND
--- NOTE | 2024-07-21 13:50 | WOUNDNOTE ---
LEFT LATERAL THIGH
[2024-07-21] MEDS: HYDROPHOR 1 APPLIC TOPICAL (14:41)
[2024-07-21] MEDS: NEURONTIN 600 MG PO (14:41)
--- NOTE | 2024-07-21 14:57 | W.PN.CARDCBS ---
Addendum entered and electronically signed by Amador Curtis MD 07/21/24 17:30:
I saw and examined the patient.
The Mold Filler's note was reviewed and I agree with the note.
Comment:
GEN: No distress, awake, Ox3
HEENT: supple, anicteric, mmm
LUNGS: CTA, no wheezes/rales
CV: Reg, S1/S2, 1/6 syst LSB, S3+
ABD: soft, BS+, NT/ND
EXT: No edema
NEURO: Gross non-focal
SKIN: No rash
Plan:
Repeat echo today with preserved ejection fraction, dilated right ventricle, mod TR with severe pulmonary hypertension of 73 mmHg.
Transcatheter aortic valve is stable with a mean gradient of 6 and no aortic regurgitation
Will continue gentle diuresis. Check repeat electrolytes Continue to follow on telemetry. She remains in persistent A-fib.
Continue Toprol 100 mg in a.m. and 50 mg in p.m. Digoxin level normal.
Continue Spiriva and antibiotics. Check EKG to follow QT interval
Original Note:
Today's Communication / Plan
-
continue IV diuresis
follow up echo pending
coumadin 4mg tonight. follow INR
Impression / Plan
-
Primary Lead Assembler: Dr. CHAVA Alejandro
Assessment:
Confusion/metabolic encephalopathy
Acute on chronic hypoxemic respiratory failure
Acute on chronic heart failure with preserved EF
AIYANA
Admission to [facility] 07/10-07/11/24 for syncope vs fall
LE wounds
Persistent AFib
Chronic coumadin therapy, managed by PCP
Essential HTN
DM2
h/o TAVR 2021
Severe pulm HTN
COPD, chronically on 3L NC
h/o R post CVA
h/o R parietal meningioma
CHAS: intolerant of CPAP
Hyperlipidemia
Morbid obesity
Chronic lymphedema
History of PE
Uncharacterized liver lesion
Subclinical hyperthyroidism
History of gastric bypass
Depression/anxiety/insomnia with history of serotonin syndrome admission 03/2024
Polypharmacy
History of falls
Echo 07/10/2024: EF 70 to 75%, evidence of RV pressure and volume overload, mild concentric LVH, MAC, mild MS with peak/mean gradients 9/5 mmHg, trace MR, number 29 mm Medtronic evolute TAVR with peak/mean gradient 6/3 mmHg, moderate to severe TR,
PAP 79 mmHg, severely dilated right heart, no significant change compared to prior
Plan:
-Patient presents with confusion and TME likely secondary to acute on chronic hypoxemic respiratory failure with CHF/COPD/obesity/CHAS/pulm HTN.
-events overnight noted. she had taken off supp O2 with cyanosis and required NRB for a time. able to be weaned throughout day, currently requiring 6L NC, normally on 3L NC as OP. wean as able
-continue diuresis with IV bumex. if accurate, weight down 5 pounds from 07/20. dry weight estimated at 273 pounds. Cr improving at 1.1. Appears she was taking torsemide 40 mg twice daily over the last week, although was prescribed 40 mg twice daily
Wednesday and 40 mg every morning with 20 mg every afternoon all other days
-CHF education
-Continue Toprol, Farxiga (autosubstituted for jardiance). Spironolactone was stopped 07/12 due to hypotension and syncope.
-Recent echo with results as above. follow up study pending 07/21
-Continue lower extremity compression therapy and wound care
-dig level stable at 0.5. in rate controlled afib with PVCs on review of tele
-INR subtherapeutic at 1.7 on 07/21. will give 4mg coumadin tonight, chronically on 2mg QPM.
-would attempt to consolidate medications as able given polypharmacy.
-will need PT/OT.
Progress Note - Lead Assembler
Subjective
Date of Service: July 21, 2024
no CP
Objective
Labs:
07/21/24 04:05
07/21/24 04:05
Labs
Hgb 15.7 g/dL (12.0-16.0) 07/21/24 04:05
Hct 45.2 % (37.0-47.0) 07/21/24 04:05
Plt Count 184 10^3/uL (130-400) 07/21/24 04:05
PT 20.6 Sec (11.4-14.6) H 07/21/24 04:05
INR 1.72 07/21/24 04:05
Sodium 135 mmol/L (135-145) 07/21/24 04:05
Potassium 4.1 mmol/L (3.5-5.1) 07/21/24 04:05
BUN 54 mg/dl (7-17) H 07/21/24 04:05
Creatinine 1.1 mg/dL (0.6-1.0) H 07/21/24 04:05
Glucose 224 mg/dl (70-99) H 07/21/24 04:05
Digoxin 0.5 ng/ml (0.8-2.0) L 07/20/24 11:55
Troponins
07/20/24
11:55
Troponin I 0.015
Vital Signs and I&O:
Vital Signs
Temp Pulse Resp BP Pulse Ox
97.5 F 92 16 120/78 100
07/21/24 11:59 07/21/24 12:00 07/21/24 12:00 07/21/24 12:00 07/21/24 11:38
Vital Signs
Temp Pulse Resp BP Pulse Ox
97.5 F 92 16 120/78 100
07/21/24 11:59 07/21/24 12:00 07/21/24 12:00 07/21/24 12:00 07/21/24 11:38
Intake & Output
07/19/24 07/20/24 07/21/24 07/22/24
07:59 07:59 07:59 07:59
Intake Total 50 / 50
Output Total 500 / 500
Balance -450 / -450
--- NOTE | 2024-07-21 16:18 | CON.MD ---
Consultation - Medical
-
patient seen chart reviewed. this patient is well known to me from prior visits to . h at bedside. she comes to ed w c/o shortness of breath confusion and was noted to be hypoxic. nila says she thought she was at their home in [place] and
family they have not seen in months was visiting. he was alarmed. she was found to have a possible uti for which she is being rx until culture results are back. she is much better today. was also concerned she was more depressed bc when
he told her they needed to go to er she said 'i don't care' and he interpreted that as she wanted to . she denies this today . says she wants to see her three grandkids grow up (they are 6 3 2 ) and she would never take her own life. she said
she just felt so bad physically and has felt so week for about a month that she really in that moment 'did not care'. she does report great difficulty w sleep. she has been dx w sleep apnea and does not wear her mask at night although she does have
another apparatus she will use in the day and sleeps three or four hours sometimes in the afternoon. she then is not tired at hs and will stay up watching tv until the wee hours of the morning. appetite is okay. she can enjoy her grandkids when she
is well. there is nothing to suggest psychosis. current meds neurontin 600/300 (three pm and hs) cymbalta 60 mg daily restoril 15 mg q hs and ropinirole . cymbalta is also for chronic pain.
past psych hx patient when i first saw her denied any hx of depression or anxiety but she had a therapist she felt was very helpful just to talk to which she felt helped w her pain, but she retired bc pandemic. she would like to find another
therapist for support. she had been on a number of serotonergic drugs in the past including cymbalta trazodone amitriptylline for pain and sleep but all except cymbalta were dc'ed bc ill effects. took ambien for a while which h says made her a
zombie.
medical hx see above patient w hx meningioma old infarct on cat scan hx a fib aortic stenosis w tavr repair HFpEF copd hrf hilario pulmonary htn tricuspid regurg hld raynauds fibromyalgia dm noted macrocytic indices on cbc bun 54 cr 1.1
glu 224 a1c 7.4 bili 3.6 ast 20 alk phos 261 bp 117/77 afebrile patient has leg abrasions not noted on admit h and p etiology ?
fh non contrib
substance abuse none
social resides w h retired one son three grandsons
mse alert ox3 cooperative pleasant speech and thought process nl no psychosis affect appropriate mood is dysphoric somewhat intelligence average cognition intace insight judgment ok
dx dysthymia chronic pain
recommendations we had a long discussion about good sleep hygiene. naps if needed should be limited to 45 minutes daily. she should maintain regular sleep wake times. referred her to website re cognitive behavioral strategies for sleep. she
should wear her sleep apnea gear. restoril will stop working w daily use. melatonin could be helpful. spread out gabapentin to 300 mg tid not 600/300. consider inc in cymbalta for pain and anxiety. gave patient a suggestion dr trini lopez for
out pt therapy. check b12 folate vit d levels tsh reflex to t4. will follow
[2024-07-21] MEDS: COUMADIN 4 MG PO (17:23)
--- NOTE | 2024-07-21 17:26 | CM ---
Addendum entered by Sully Lopez RN 07/21/24 17:45:
Noting seen by wound care nurse.
Original Note:
Patient with Dx Metabolic encephalopathy, UTI, acute on chronic hypoxemic respiratory failure, HF. O2 10L ---> 6L today. Receiving IV Abx, IV Bumex. PT/OT recommend skilled rehab.
Attempted to speak with patient who was unavailable.
Spoke with Jamaal; discussed patient's current mobility as per PT/OT. says he cannot care for her at home with her current needs and he works 3 days/week. He would agree with short term rehab with return to home after. He will speak
with his tomorrow about going to SNF. The patient went to [id number] previously, however her mother resides at [id number] memory care unit and he prefers that his does not go there. Discussed local SNFs near [place], [facility] and
provided ratings - he would like a facility with a good rating. has just finished visiting here today and is not available to meet at this time.
Plan follow up with patient/ for SNF preferences.
[2024-07-21 17:32] LABS: Glucose - Point of Care 163 mg/dl (70-99)
[2024-07-21 17:43] LABS: Magnesium 2.3 mg/dl (1.6-2.3); Potassium 3.8 mmol/L (3.5-5.1)
--- NOTE | 2024-07-21 17:55 | STATUS ---
SITUATION:
Covering for Eladio PILLAI for this pt and Tele alarmed VT- pt had approx 15 sec VT
BACKGROUND:
ASSESSMENT:
Dusky when this leader writer entered the room she was on phone with her son- BP 124/83 95% on O2. Rhythm broke on own currently AF w/ BBC and PVCs. EKG done-
RECOMMENDATION: Providers notified via TT Dr. Curtis, Dr. Weiner, - cross coverage Dr. Cobb- labs ordered and sent. Strips placed on chart
[2024-07-21] MEDS: KCL ELIXIR 20 MEQ PO (21:32)
[2024-07-21] MEDS: NEURONTIN 300 MG PO (21:33)
[2024-07-21] MEDS: RESTORIL 15 MG PO (21:33)
[2024-07-21] MEDS: TOPROL XL 50 MG PO (21:34)
[2024-07-21] MEDS: REQUIP 0.25 MG PO (21:34)
[2024-07-21 21:35] LABS: Glucose - Point of Care 181 mg/dl (70-99)
--- NOTE | 2024-07-21 23:57 | PTCARENOTE ---
Pt received from dayshift RN. Pt awake and conversing with staff. afib on monitor. sats 95% on 5L midflow. pt given PO 20 meq KCI for K of 3.8. pt took pills whole with water. assessment as documented. call light in reach.
[2024-07-22] VITALS (14 sets, daily range): BP systolic 93–120; BP diastolic 63–101; BMI 49.8
[2024-07-22] MEDS: ZOSYN 50 IV (02:41)
[2024-07-22 05:12] LABS: INR 2.09; PT 23.6 Sec (11.4-14.6)
[2024-07-22 05:47] LABS: Vitamin D, 25-OH*** 51.9 ng/mL (30-80)
[2024-07-22 06:01] LABS: TSH Reflex To Free T4 2.54 uIU/ml (0.47-4.68)
[2024-07-22 06:37] LABS: Folate > 20.0 ng/ml (2.76-20); Vitamin B12 > 1000 pg/ml (239-931)
[2024-07-22] MEDS: VENTOLIN NEBULES 2.5 MG INH ×4 (07:26→20:40)
[2024-07-22] MEDS: SPIRIVA RESPIMAT 2.5 MCG 2 PUFF INH (07:26)
[2024-07-22] MEDS: PULMICORT 0.5 MG INH ×2 (07:26→20:40)
--- NOTE | 2024-07-22 07:51 | W.PN.HOSP.TC ---
Today's Communication/Plan
-
Hold antibiotics
IV Bumex
Assessment / Plan
Assessment / Plan
Gen-AAOx3, NAD
HEENT-NC, AT, anicteric, clear oral mm
Neck-supple
CV-reg, no M, +S1/S2
Lungs-clear B/L
Abd-soft, NT, ND
Ext-no edema
Musculoskeletal-no cyanosis, clubbing
Skin-warm and dry
Neuro-grossly non-focal
Psych-calm, cooperative
Acute metabolic encephalopathy -likely due to acute on chronic hypoxic respiratory failure due to acute on chronic heart failure. Doubt UTI, she has no symptoms. No signs of infection.
Chronic hypoxemic respiratory failure on 3 L baseline
-Lungs sound clear
-Patient given 1 mg Bumex, DuoNeb, methylprednisolone
-VBG shows pO2 of 69, pH of 7.46, pCO2 of 34
-BNP of 1270 from 2400 previously
-Chest x-ray shows prominence of bronchovascular markings possibly chronic versus mild vascular congestion
-Patient on 5 L oxygen currently
-cont diuresis w bumex
Acute on chronic heart failure with preserved EF exacerbation -continue IV Bumex.
Echocardiogram shows LVEF 70 to 75%, severe RV dilation and hypokinesis, moderately dilated LA, severely dilated RA, moderate TR, estimated PA pressure of 73 mmHg.
Suspect severe pulmonary hypertension related to obesity, CHAS, COPD, etc. Pulmonary hypertension related severe right heart failure.
Asymptomatic bacteriuria - doubt UTI. Hold further antibiotics, urine culture sent. Discussed with patient.
AIYANA likely cardiorenal
-Monitor with increased diuresis
Recent syncopal episode
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
Bilateral lower extremity lymphedema with traumatic injuries
-Legs do not appear infected
-Outpatient follow-up with lymphedema clinic
Anxiety/depression
-Outpatient psychiatry follow-up
Persistent atrial fibrillation -INR 2.09.
-Continue Coumadin
-Continue metoprolol
-Continue digoxin
Aortic stenosis status post TAVR
COPD without exacerbation
-Continue BrovanaMigdaliai
Obstructive sleep apnea
Pulmonary hypertension
Moderate to severe tricuspid regurgitation
Essential hypertension
DM2 without hyperglycemia -hemoglobin A1c 7.4%.
-Hold metformin
-Continue Jardiance
Hyperlipidemia
-Continue statin
Anxiety
-Continue temazepam, duloxetine
Raynaud's
Meningioma
Morbid obesity due to excess calories -weight loss encouraged.
Hyperlipidemia
History of right posterior CVA
History of right parietal meningioma
-Following with Dr. Love
Presumed restless legs
-Continue ropinirole, gabapentin
Full code
Anticipated Discharge: > 48 hours
Subjective/Interval History
-
Date of Service: July 22, 2024
Patient seen and examined. Shortness of breath improving.
Objective Data
-
Labs:
Laboratory Results
07/22/24 07/22/24
04:33 07:40
PT 23.6 H
INR 2.09
Sodium Pending
Potassium Pending
Chloride Pending
Carbon Dioxide Pending
BUN Pending
Creatinine Pending
Glucose Pending
Calcium Pending
Total Bilirubin Pending
AST Pending
ALT Pending
Alkaline Phosphatase Pending
Vital Signs:
Vital Signs
Temp Pulse Resp BP Pulse Ox
97.2 F 83 18 113/72 93
07/22/24 03:32 07/22/24 07:26 07/22/24 07:26 07/22/24 06:00 07/22/24 07:26
I&O
07/21/24 07/22/24 07/23/24
06:59 06:59 06:59
Intake Total 50 / 50 990 / 990
Output Total 500 / 500 1100 / 1100
Balance -450 / -450 -110 / -110
Review of Systems
-
History Source: Patient
All other systems: Reviewed and negative
--- NOTE | 2024-07-22 09:07 | W.PN.CARDCBS ---
Today's Communication / Plan
-
Had episode of V. tach yesterday. Continue to follow electrolytes and replete.
She remains somewhat volume overloaded and I will continue IV Bumex for another 24 hours
Echo was reviewed which has a preserved ejection fraction, stable to have our continued pulmonary hypertension
We will increase Toprol to 100 mg p.o. twice daily.
Continue nebulizers for COPD.
Impression / Plan
-
Primary Locomotive Supervisor: Dr. CHAVA Alejandro
Assessment:
Confusion/metabolic encephalopathy
Acute on chronic hypoxemic respiratory failure
Acute on chronic heart failure with preserved EF
AIYANA
Admission to [facility] 07/10-07/11/24 for syncope vs fall
LE wounds
Persistent AFib
NSVT
Chronic coumadin therapy, managed by PCP
Essential HTN
DM2
h/o TAVR 2021
Severe pulm HTN
COPD, chronically on 3L NC
h/o R post CVA
h/o R parietal meningioma
CHAS: intolerant of CPAP
Hyperlipidemia
Morbid obesity
Chronic lymphedema
History of PE
Uncharacterized liver lesion
Subclinical hyperthyroidism
History of gastric bypass
Depression/anxiety/insomnia with history of serotonin syndrome admission 03/2024
Polypharmacy
History of falls
Echo 07/10/2024: EF 70 to 75%, evidence of RV pressure and volume overload, mild concentric LVH, MAC, mild MS with peak/mean gradients 9/5 mmHg, trace MR, number 29 mm Medtronic evolute TAVR with peak/mean gradient 6/3 mmHg, moderate to severe TR,
PAP 79 mmHg, severely dilated right heart, no significant change compared to prior
Echo July 21, 2024, EF 7075, dilated RV with RV hypokinesis, mean mitral gradient 5, mild MR, status post evolute transcatheter aortic valve with mean gradient of 6 and no AI, moderate TR with PA pressure 73
Plan:
-Patient presents with confusion and TME likely secondary to acute on chronic hypoxemic respiratory failure with CHF/COPD/obesity/CHAS/pulm HTN.
-events overnight noted. she had taken off supp O2 with cyanosis and required NRB for a time. able to be weaned throughout day, currently requiring 6L NC, normally on 3L NC as OP. wean as able
-continue diuresis with IV bumex. Unclear how accurate weight is. Creatinine stable
-She did have an episode of nonsustained ventricular tachycardia yesterday. Will increase Toprol to 100 mg p.o. twice daily. Watch for hypotension.
-CHF education
-Continue Toprol, Farxiga (autosubstituted for jardiance). Spironolactone was stopped 07/12 due to hypotension and syncope.
-Echo reviewed. LVEF is preserved still with pulmonary hypertension. Continue to support electrolytes with potassium greater than 4.
-Continue lower extremity compression therapy and wound care
-dig level stable at 0.5. in rate controlled afib with PVCs on review of tele
-INR at goal of 2.09. Continue to follow
-would attempt to consolidate medications as able given polypharmacy.
-will need PT/OT.
Progress Note - Locomotive Supervisor
Subjective
Date of Service: July 22, 2024
Breathing improved. Had episode of VT yesterday.
Objective
Labs:
07/21/24 04:05
Labs
Hgb 15.7 g/dL (12.0-16.0) 07/21/24 04:05
Hct 45.2 % (37.0-47.0) 07/21/24 04:05
Plt Count 184 10^3/uL (130-400) 07/21/24 04:05
PT 23.6 Sec (11.4-14.6) H 07/22/24 04:33
INR 2.09 07/22/24 04:33
Sodium 135 mmol/L (135-145) 07/21/24 04:05
Potassium 3.8 mmol/L (3.5-5.1) 07/21/24 17:22
BUN 54 mg/dl (7-17) H 07/21/24 04:05
Creatinine 1.1 mg/dL (0.6-1.0) H 07/21/24 04:05
Glucose 224 mg/dl (70-99) H 07/21/24 04:05
Digoxin 0.5 ng/ml (0.8-2.0) L 07/20/24 11:55
Troponins
07/20/24
11:55
Troponin I 0.015
Vital Signs and I&O:
Vital Signs
Temp Pulse Resp BP Pulse Ox
97.2 F 83 18 113/72 94
07/22/24 03:32 07/22/24 07:26 07/22/24 07:26 07/22/24 06:00 07/22/24 07:59
Vital Signs
Temp Pulse Resp BP Pulse Ox
97.2 F 83 18 113/72 94
07/22/24 03:32 07/22/24 07:26 07/22/24 07:26 07/22/24 06:00 07/22/24 07:59
Intake & Output
07/20/24 07/21/24 07/22/24 07/23/24
06:59 06:59 06:59 06:59
Intake Total 50 / 50 990 / 990
Output Total 500 / 500 1100 / 1100
Balance -450 / -450 -110 / -110
Physical Exam
Physical Exam
GEN: No distress, awake, Ox3
HEENT: supple, anicteric, mmm
LUNGS: scatt rhonchi
CV: Irreg, S1/S2, 1/6 syst LSB, no gallop
ABD: soft, BS+, NT/ND
EXT: No edema
NEURO: Gross non-focal
SKIN: No rash
[2024-07-22 09:16] LABS: Glucose - Point of Care 131 mg/dl (70-99)
[2024-07-22] MEDS: NOVOLOG FLEXPEN-LOW RESISTANCE SC ×2 (10:02→13:57)
[2024-07-22] MEDS: BUMEX 2 MG IV ×2 (10:04→15:47)
[2024-07-22] MEDS: FLUSH (NSS) 1 FLUSH IV (10:04)
[2024-07-22] MEDS: CYMBALTA DELAYED RELEASE 60 MG PO (10:06)
[2024-07-22] MEDS: FARXIGA 10 MG PO (10:07)
[2024-07-22] MEDS: DESENEX/MITRAZOL/ZEASORB 1 APPLIC TOPICAL ×2 (10:07→22:04)
[2024-07-22] MEDS: THERAGRAN 1 TABLET PO (10:08)
[2024-07-22] MEDS: NEURONTIN 300 MG PO ×3 (10:08→22:04)
[2024-07-22] MEDS: LANOXIN 125 MCG PO (10:08)
[2024-07-22] MEDS: LIPITOR 10 MG PO (10:08)
[2024-07-22] MEDS: OSCAL 500 + D 500 MG PO (10:09)
[2024-07-22] MEDS: VITAMIN B-12 2500 MCG PO (10:09)
[2024-07-22] MEDS: HYDROPHOR 1 APPLIC TOPICAL (10:10)
[2024-07-22] MEDS: TOPROL XL 100 MG PO (10:10)
[2024-07-22] MEDS: KCL 20 MEQ PO (10:10)
[2024-07-22 11:23] LABS: ALT (SGPT) 27 U/L (0-35); AST (SGOT) 34 U/L (14-36); Albumin 3.7 g/dl (3.5-5.0); Alkaline Phosphatase 242 U/L (38-126); Blood Urea Nitrogen 52 mg/dl (7-17); Carbon Dioxide 24 mmol/L (22-30); Chloride 100 mmol/L (98-107); Direct Bilirubin 1.7 mg/dl (0.0-0.4); Estimated Creatinine Clearance 57 ml/min; Glucose 165 mg/dl (70-99); Sodium 138 mmol/L (135-145); Total Bilirubin 2.5 mg/dl (0.2-1.3); Total Protein 7.6 g/dl (6.3-8.2)
[2024-07-22 12:29] LABS: Glucose - Point of Care 148 mg/dl (70-99)
[2024-07-22] MEDS: FLUSH (NSS) 2 FLUSH IV (15:47)
[2024-07-22 16:51] LABS: Glucose - Point of Care 167 mg/dl (70-99)
--- NOTE | 2024-07-22 17:00 | PTCARENOTE ---
Patient heavy assist x2 to use bedside commode. Patient fall risk. Bed alarm in use. Patient with intermittent confusion. Midflow oxygen 5-7L. sP02 88%-93%. VS stable.
--- NOTE | 2024-07-22 17:42 | W.PN.UPDATE ---
Update Note
Progress Note Update
68 y/o woman with CHF, diabetes, Afib, COPD, sleep apnea, hypertension and pulmonary hypertension, hyperlipidemia and meningioma and psychiatrically anxiety depression seen for follow-up. She was confused about where she was and brought in
by . Mentation seems to have cleared. She is upset that her would like her to go to [facility] for rehab -- it is where her mother is in [facility] Care and they have not gotten along for 20 years. She is afraid she will encounter her.
It is a convenient place for her family to visit and it is a place familiar. she had been there twice before for rehab of knee replacements.
She is an obese woman with bruising on her legs (from falling) who is alert and oriented. Speech is clear, but somewhat perseverative. Pleasant affect. Mild cognitive impairment likely.
She is on Neurontin 300 mg.TID for pain; Cymbalta 60 mg. and temazepam 15 mg. HS for sleep. Cannot tolerate CPAP. Temazepam is not ideal in this situation as it can impair breathing, but will not change today.
She is being encouraged to restart therapy.
[2024-07-22] MEDS: COUMADIN 2 MG PO (17:47)
[2024-07-22] MEDS: NOVOLOG FLEXPEN-LOW RESISTANCE 1 UNITS SC (17:47)
[2024-07-22 21:20] LABS: Glucose - Point of Care 150 mg/dl (70-99)
[2024-07-22] MEDS: REQUIP 0.25 MG PO (22:04)
[2024-07-22] MEDS: TOPROL XL 50 MG PO (22:04)
[2024-07-22] MEDS: RESTORIL 15 MG PO (22:07)
[2024-07-23] VITALS (15 sets, daily range): BP systolic 87–148; BP diastolic 63–114; BMI 49.2
--- NOTE | 2024-07-23 01:55 | PTCARENOTE ---
Assumed care of Pt from previous RN. Son at bedside. pt can answer orientation questions but confused at times. Bed alarm on. aafib on monitor. pt on 7L midflow 02. pt has dx of Raynauds. upper and lower ext B/L cold and cyanotic intermittently.
causing pulse ox to incorrectly capture readings/ not mushroom picker reading at all. Pt denies SOB. Not symptomatic. facial coloring improved at this time from cyanotic appearance of before. pt spot checked frequently with mobile pulse ox, reading 85-90%.
ears attempted to capture reading but unable to collect. reading now with good pleth and capturing sat of 92%. Assessment as documented. Call light in reach. Safe environment maintained.
[2024-07-23 06:09] LABS: ALT (SGPT) 28 U/L (0-35); AST (SGOT) 37 U/L (14-36); Albumin 3.7 g/dl (3.5-5.0); Alkaline Phosphatase 269 U/L (38-126); Blood Urea Nitrogen 46 mg/dl (7-17); Calcium 9.4 mg/dl (8.4-10.2); Carbon Dioxide 29 mmol/L (22-30); Chloride 98 mmol/L (98-107); Estimated Creatinine Clearance 68 ml/min; Glucose 147 mg/dl (70-99); Sodium 138 mmol/L (135-145); Total Bilirubin 2.4 mg/dl (0.2-1.3); Total Protein 7.4 g/dl (6.3-8.2); eGFR > 60.00
[2024-07-23] MEDS: SPIRIVA RESPIMAT 2.5 MCG 2 PUFF INH (07:12)
[2024-07-23] MEDS: VENTOLIN NEBULES 2.5 MG INH ×3 (07:12→20:31)
[2024-07-23] MEDS: PULMICORT 0.5 MG INH ×2 (07:12→20:31)
[2024-07-23 08:01] LABS: Glucose - Point of Care 135 mg/dl (70-99)
--- NOTE | 2024-07-23 08:16 | W.PN.HOSP.TC ---
Today's Communication/Plan
-
Continue current care
Assessment / Plan
Assessment / Plan
Gen-AAOx3, NAD
HEENT-NC, AT, anicteric, clear oral mm
Neck-supple
CV-reg, no M, +S1/S2
Lungs-clear B/L
Abd-soft, NT, ND
Ext-bilateral lower extremity edema, dusky and purple-colored lower extremities including toes
Musculoskeletal-no cyanosis, clubbing
Skin-warm and dry
Neuro-grossly non-focal
Psych-calm, cooperative
Acute metabolic encephalopathy -likely due to acute on chronic hypoxic respiratory failure due to acute on chronic heart failure. Doubt UTI, she has no symptoms. No signs of infection.
Chronic hypoxemic respiratory failure on 3 L baseline
-Lungs sound clear
-Patient given 1 mg Bumex, DuoNeb, methylprednisolone
-VBG shows pO2 of 69, pH of 7.46, pCO2 of 34
-BNP of 1270 from 2400 previously
-Chest x-ray shows prominence of bronchovascular markings possibly chronic versus mild vascular congestion
-Patient on 5 L oxygen currently
-cont diuresis w bumex
Acute on chronic heart failure with preserved EF exacerbation -continue IV Bumex.
Echocardiogram shows LVEF 70 to 75%, severe RV dilation and hypokinesis, moderately dilated LA, severely dilated RA, moderate TR, estimated PA pressure of 73 mmHg.
Suspect severe pulmonary hypertension related to obesity, CHAS, COPD, etc. Pulmonary hypertension related severe right heart failure.
Asymptomatic bacteriuria - doubt UTI. Hold further antibiotics, urine culture sent. Discussed with patient.
AIYANA likely cardiorenal. Creatinine improved, 1.0.
Recent syncopal episode
-Patient with manager monitoring prescribed by [facility] Cardiology
Bilateral lower extremity lymphedema with traumatic injuries
-Legs do not appear infected
-Outpatient follow-up with lymphedema clinic
Anxiety/depression
-Outpatient psychiatry follow-up
Persistent atrial fibrillation -INR 2.09.
-Continue Coumadin, INR 2.5.
-Continue metoprolol
-Continue digoxin
Aortic stenosis status post TAVR
COPD without exacerbation
-Continue BroSarah velázquez
Obstructive sleep apnea
Pulmonary hypertension
Moderate to severe tricuspid regurgitation
Essential hypertension
DM2 without hyperglycemia -hemoglobin A1c 7.4%.
-Hold metformin
-Continue Jardiance
Hyperlipidemia
-Continue statin
Anxiety
-Continue temazepam, duloxetine
Raynaud's
Meningioma
Morbid obesity due to excess calories -weight loss encouraged.
Hyperlipidemia
History of right posterior CVA
History of right parietal meningioma
-Following with Dr. Love
Presumed restless legs
-Continue ropinirole, gabapentin
Full code
Anticipated Discharge: Within 24 hours
Subjective/Interval History
-
Date of Service: July 23, 2024
Patient seen and examined. No complaints.
Objective Data
-
Labs:
Laboratory Results
07/23/24
04:49
PT 27.0 H
INR 2.50
Sodium 138
Potassium 4.0
Chloride 98
Carbon Dioxide 29
BUN 46 H
Creatinine 1.0
Glucose 147 H
Calcium 9.4
Total Bilirubin 2.4 H
AST 37 H
ALT 28
Alkaline Phosphatase 269 H
Vital Signs:
Vital Signs
Temp Pulse Resp BP Pulse Ox
97.5 F 83 18 126/97 92
07/23/24 03:00 07/23/24 07:15 07/23/24 07:15 07/23/24 06:00 07/23/24 07:15
I&O
07/22/24 07/23/24 07/24/24
06:59 06:59 06:59
Intake Total 990 / 990 575 / 575
Output Total 1100 / 1100 1800 / 1800
Balance -110 / -110 -1225 / -1225
Review of Systems
-
History Source: Patient
All other systems: Reviewed and negative
[2024-07-23] MEDS: VITAMIN B-12 2500 MCG PO (10:15)
[2024-07-23] MEDS: NOVOLOG FLEXPEN-LOW RESISTANCE SC ×2 (10:15→16:58)
[2024-07-23] MEDS: OSCAL 500 + D 500 MG PO (10:16)
[2024-07-23] MEDS: FARXIGA 10 MG PO (10:16)
[2024-07-23] MEDS: THERAGRAN 1 TABLET PO (10:16)
[2024-07-23] MEDS: CYMBALTA DELAYED RELEASE 60 MG PO (10:16)
[2024-07-23] MEDS: NEURONTIN 300 MG PO ×3 (10:16→21:09)
[2024-07-23] MEDS: LANOXIN 125 MCG PO (10:16)
[2024-07-23] MEDS: LIPITOR 10 MG PO (10:16)
[2024-07-23] MEDS: KCL 20 MEQ PO (10:17)
[2024-07-23] MEDS: HYDROPHOR 1 APPLIC TOPICAL (10:17)
[2024-07-23] MEDS: DESENEX/MITRAZOL/ZEASORB 1 APPLIC TOPICAL ×2 (10:17→21:09)
[2024-07-23] MEDS: FLUSH (NSS) 2 FLUSH IV (10:18)
[2024-07-23] MEDS: BUMEX 2 MG IV ×2 (10:18→16:59)
[2024-07-23] MEDS: TOPROL XL 100 MG PO (10:20)
--- NOTE | 2024-07-23 11:35 | W.PN.UPDATE ---
Update Note
Progress Note Update
68 y/o woman admitted with CHF and other medical problems who was confused before admission. She is on Cymbalta and temazepam. Today she is in better spirits. Had been very conflicted about going to [facility] for rehab as her mother is in
the Memory Care unit there and does not want family members or staff telling her mother that she is there. 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
Suggested she see if an orexin antagonist would be covered by her insurance which would be a better hypnotic than a benzodiazepine (temazepam).
She cannot tolerate CPAP which would clearly be helpful to her. Is trying a different delivery system (nasal?) and has looked into [facility] or similar.
Psychiatrically improved and meds stable. Psychiatry will sign off.
--- NOTE | 2024-07-23 12:00 | W.PN.CARDCBS ---
Today's Communication / Plan
-
Continue higher dose of Toprol 100 mg p.o. every 12 no further ventricular tachycardia.
Continue IV Bumex for another 24 to 48 hours. Creatinine overall stable
A-fib remains rate controlled.Continue Toprol and digoxin.
Impression / Plan
-
Primary Seed Expert: Dr. CHAVA Alejandro
Assessment:
Confusion/metabolic encephalopathy
Acute on chronic hypoxemic respiratory failure
Acute on chronic heart failure with preserved EF
AIYANA
Admission to [facility] 07/10-07/11/24 for syncope vs fall
LE wounds
Persistent AFib
NSVT
Chronic coumadin therapy, managed by PCP
Essential HTN
DM2
h/o TAVR 2021
Severe pulm HTN
COPD, chronically on 3L NC
h/o R post CVA
h/o R parietal meningioma
CHAS: intolerant of CPAP
Hyperlipidemia
Morbid obesity
Chronic lymphedema
History of PE
Uncharacterized liver lesion
Subclinical hyperthyroidism
History of gastric bypass
Depression/anxiety/insomnia with history of serotonin syndrome admission 03/2024
Polypharmacy
History of falls
Echo 07/10/2024: EF 70 to 75%, evidence of RV pressure and volume overload, mild concentric LVH, MAC, mild MS with peak/mean gradients 9/5 mmHg, trace MR, number 29 mm Medtronic evolute TAVR with peak/mean gradient 6/3 mmHg, moderate to severe TR,
PAP 79 mmHg, severely dilated right heart, no significant change compared to prior
Echo July 21, 2024, EF 7075, dilated RV with RV hypokinesis, mean mitral gradient 5, mild MR, status post evolute transcatheter aortic valve with mean gradient of 6 and no AI, moderate TR with PA pressure 73
Plan:
-Patient presents with confusion and TME likely secondary to acute on chronic hypoxemic respiratory failure with CHF/COPD/obesity/CHAS/pulm HTN.
-Respiratory status is slowly improving. Weight is back down. Continue IV Bumex for another 24 to 48 hours.
-She did have an episode of nonsustained ventricular tachycardia 07/21. No further ventricular tachycardia. Cont Toprol to 100 mg p.o. twice daily. Watch for hypotension. Blood pressure continues to be very labile.
-CHF education
-Continue Toprol, Farxiga (autosubstituted for jardiance). Spironolactone was stopped 07/12 due to hypotension and syncope.
-Echo reviewed. LVEF is preserved still with pulmonary hypertension. Continue to support electrolytes with potassium greater than 4.
-Continue lower extremity compression therapy and wound care
-dig level stable at 0.5. in rate controlled afib with PVCs on review of tele
-INR at goal of 2.5 Continue to follow
-would attempt to consolidate medications as able given polypharmacy.
-will need PT/OT.
Progress Note - Seed Expert
Subjective
Date of Service: July 23, 2024
Still with some shortness of breath. Breathing is slowly improving. No further ventricular tachycardia.
Objective
Labs:
07/21/24 04:05
07/23/24 04:49
Labs
Hgb 15.7 g/dL (12.0-16.0) 07/21/24 04:05
Hct 45.2 % (37.0-47.0) 07/21/24 04:05
Plt Count 184 10^3/uL (130-400) 07/21/24 04:05
PT 27.0 Sec (11.4-14.6) H 07/23/24 04:49
INR 2.50 07/23/24 04:49
Sodium 138 mmol/L (135-145) 07/23/24 04:49
Potassium 4.0 mmol/L (3.5-5.1) 07/23/24 04:49
BUN 46 mg/dl (7-17) H 07/23/24 04:49
Creatinine 1.0 mg/dL (0.6-1.0) 07/23/24 04:49
Glucose 147 mg/dl (70-99) H 07/23/24 04:49
Digoxin 0.5 ng/ml (0.8-2.0) L 07/20/24 11:55
Troponins
07/20/24
11:55
Troponin I 0.015
Vital Signs and I&O:
Vital Signs
Temp Pulse Resp BP Pulse Ox
97.6 F 79 18 148/114 94
07/23/24 07:05 07/23/24 11:16 07/23/24 11:16 07/23/24 10:21 07/23/24 11:16
Vital Signs
Temp Pulse Resp BP Pulse Ox
97.6 F 79 18 148/114 94
07/23/24 07:05 07/23/24 11:16 07/23/24 11:16 07/23/24 10:21 07/23/24 11:16
Intake & Output
07/21/24 07/22/24 07/23/24 07/24/24
06:59 06:59 06:59 06:59
Intake Total 50 / 50 990 / 990 575 / 575 325 / 325
Output Total 500 / 500 1100 / 1100 1800 / 1800
Balance -450 / -450 -110 / -110 -1225 / -1225 325 / 325
Physical Exam
Physical Exam
GEN: No distress, awake, Ox3
HEENT: supple, anicteric, mmm
LUNGS: bilat rhonchi
CV: Irreg, S1/S2, 1/6 syst LSB, no gallop
ABD: soft, BS+, NT/ND
EXT: No edema
NEURO: Gross non-focal
SKIN: No rash
[2024-07-23 12:20] LABS: Glucose - Point of Care 185 mg/dl (70-99)
[2024-07-23] MEDS: TYLENOL 650 MG PO (13:27)
[2024-07-23] MEDS: NOVOLOG FLEXPEN-LOW RESISTANCE 1 UNITS SC (15:13)
[2024-07-23] MEDS: VENTOLIN NEBULES INH (15:25)
[2024-07-23 16:45] LABS: Glucose - Point of Care 129 mg/dl (70-99)
[2024-07-23] MEDS: FLUSH (NSS) 1 FLUSH IV (16:59)
[2024-07-23] MEDS: COUMADIN 2 MG PO (17:00)
--- NOTE | 2024-07-23 19:31 | PTCARENOTE ---
Patient remains on 7L mid flow. Lungs diminished throughout. Intermittent confusion. Afib with PVC's on monitor. VS stable,afebrile. Fall risk with bed alarm. Patient complaining of foot cramps and pain. Order obtained for tylenol.
[2024-07-23] MEDS: REQUIP 0.25 MG PO (21:09)
[2024-07-23] MEDS: TOPROL XL 50 MG PO (21:10)
[2024-07-23] MEDS: RESTORIL 15 MG PO (21:10)
--- NOTE | 2024-07-23 22:50 | PTCARENOTE ---
Caring for pt overnight. aaox3. Afib on monitor, remains on 7LMF 93% soa2 and above. orthopneic sob at rest when speaking & on exertion in the bed. Remained bedrest so far for nightshift. Purewick for incontinence. BLE +3 & red. Cyanotic hands/feet,
per report is patients normal. Took pills whole with water, no issues. no confusion/forgetfulness noted so far. Bed alarm on for safety, call avitia in reach. Will monitor.
[2024-07-23 22:59] LABS: Glucose - Point of Care 147 mg/dl (70-99)
[2024-07-24] VITALS (13 sets, daily range): BP systolic 92–122; BP diastolic 57–95; BMI 49.3
[2024-07-24 04:35] LABS: INR 2.31; PT 25.5 Sec (11.4-14.6)
[2024-07-24 04:51] LABS: ALT (SGPT) 28 U/L (0-35); AST (SGOT) 42 U/L (14-36); Albumin 3.3 g/dl (3.5-5.0); Alkaline Phosphatase 265 U/L (38-126); Blood Urea Nitrogen 47 mg/dl (7-17); Calcium 9.2 mg/dl (8.4-10.2); Carbon Dioxide 26 mmol/L (22-30); Chloride 102 mmol/L (98-107); Estimated Creatinine Clearance 75 ml/min; Glucose 178 mg/dl (70-99); Potassium 4.2 mmol/L (3.5-5.1); Sodium 138 mmol/L (135-145); Total Bilirubin 2.3 mg/dl (0.2-1.3); Total Protein 7.1 g/dl (6.3-8.2); eGFR > 60.00
[2024-07-24] MEDS: NOVOLOG FLEXPEN-LOW RESISTANCE SC ×2 (08:00→17:10)
[2024-07-24] MEDS: THERAGRAN 1 TABLET PO (08:01)
[2024-07-24] MEDS: VITAMIN B-12 2500 MCG PO (08:01)
[2024-07-24] MEDS: KCL 20 MEQ PO (08:02)
[2024-07-24] MEDS: LIPITOR 10 MG PO (08:02)
[2024-07-24] MEDS: BUMEX 2 MG IV ×2 (08:02→17:07)
[2024-07-24] MEDS: OSCAL 500 + D 500 MG PO (08:02)
[2024-07-24] MEDS: NEURONTIN 300 MG PO ×3 (08:02→19:48)
[2024-07-24] MEDS: FARXIGA 10 MG PO (08:02)
[2024-07-24] MEDS: TOPROL XL 100 MG PO (08:02)
[2024-07-24] MEDS: CYMBALTA DELAYED RELEASE 60 MG PO (08:02)
[2024-07-24] MEDS: HYDROPHOR 1 APPLIC TOPICAL (08:03)
[2024-07-24] MEDS: DESENEX/MITRAZOL/ZEASORB 1 APPLIC TOPICAL ×2 (08:03→19:47)
[2024-07-24 08:10] LABS: Glucose - Point of Care 107 mg/dl (70-99)
[2024-07-24] MEDS: SPIRIVA RESPIMAT 2.5 MCG 2 PUFF INH (08:32)
[2024-07-24] MEDS: VENTOLIN NEBULES 2.5 MG INH ×4 (08:32→19:45)
[2024-07-24] MEDS: PULMICORT 0.5 MG INH ×2 (08:33→19:45)
--- NOTE | 2024-07-24 11:43 | W.PN.CARDCBS ---
Addendum entered and electronically signed by Maicol Kennedy MD 07/24/24 12:12:
I saw and examined the patient.
The [employer] or PA's note was reviewed and I agree with the note.
Comment: General: Well developed, well nourished in NAD.
Neck: Supple, no JVD, HJR, carotids +2 B/L, no bruits bilaterally.
Heart: Non displaced PMI, RRR, no murmurs, No S3, S4, no rubs.
Lungs: Scattered rhonchi
Extremities: Moderate edema with chronic venous stasis changes
Neuro: Grossly nonfocal, awake, alert and oriented x3.
Remains hypoxic. Was on 6 L earlier in the day and now on 15 L. On 2 L currently at home. Continue IV Bumex.
Original Note:
Today's Communication / Plan
-
Cont Bumex 2 mg IV BID
Impression / Plan
-
Primary Drug Inspector: Dr. CHAVA Alejandro
Assessment:
Admitted with confusion/metabolic encephalopathy 07/20/24
Acute on chronic hypoxemic respiratory failure
Acute on chronic HFpEF
AIYANA
Admission to [facility] for syncope vs fall 07/10-07/11/24
LE wounds
Persistent AFib
NSVT, 07/21/24
Chronic Coumadin therapy, managed by cardiology
Essential HTN
DM2
h/o TAVR 2021
Severe pulm HTN
COPD, chronically on 3L NC
h/o R post CVA
h/o R parietal meningioma
CHAS: intolerant of CPAP
Hyperlipidemia
Morbid obesity
Chronic lymphedema
History of PE
Uncharacterized liver lesion
Subclinical hyperthyroidism
History of gastric bypass
Depression/anxiety/insomnia with history of serotonin syndrome admission 03/2024
Polypharmacy
History of falls
Echo 07/10/2024: EF 70 to 75%, evidence of RV pressure and volume overload, mild concentric LVH, MAC, mild MS with peak/mean gradients 9/5 mmHg, trace MR, number 29 mm Medtronic evolute TAVR with peak/mean gradient 6/3 mmHg, moderate to severe TR,
PAP 79 mmHg, severely dilated right heart, no significant change compared to prior
Echo 07/21/24:EF 70-75%, dilated RV with RV hypokinesis, mean mitral gradient 5, mild MR, status post Evolut transcatheter aortic valve with mean gradient of 6 and no AI, moderate TR with PA pressure 73
Plan:
-Patient presents with confusion and TME likely secondary to acute on chronic hypoxemic respiratory failure with CHF/COPD/obesity/CHAS/pulm HTN.
-Bed scale weights reviewed and no appreciable decrease despite Bumex 2 mg IV BID. Patient was taking torsemide 40 mg PO BID prior to admission
-EF 70-75% by echo 07/21/24 and TAVR mean gradient 6 mmHg without any AI
-Outpatient dose of Toprol-XL changed to 100 mg a.m. and 50 mg p.m. daily following episode of NSVT
-Outpatient dose of Jardiance 10 mg daily was transition to Farxiga 10 mg daily due to formulary changes at , but should resume Jardiance upon D/C to home
-Patient was not taking VIVEK/ARB/ARNI/aldosterone antagonist prior to admission due to hypotension and previous episode of hypotension and syncope with spironolactone on 07/12/2024
-She did have an episode of NSVT 07/21/24, no further VT.
-Patient with known persistent A-fib. HR controlled with Toprol-XL, dose increased this admission as noted above, and also chronic outpatient dose of digoxin 125 mcg SuTuThSa. Digoxin level 0.5 on 07/20/2024
-Patient is chronically on warfarin with INR goal of 2-3 as managed by cardiology. Patient uses a home monitor.
Progress Note - Drug Inspector
Subjective
Date of Service: July 24, 2024
No pain, less anxious about going to rehab
Objective
Labs:
07/21/24 04:05
07/24/24 04:08
Labs
Hgb 15.7 g/dL (12.0-16.0) 07/21/24 04:05
Hct 45.2 % (37.0-47.0) 07/21/24 04:05
Plt Count 184 10^3/uL (130-400) 07/21/24 04:05
PT 25.5 Sec (11.4-14.6) H 07/24/24 04:08
INR 2.31 07/24/24 04:08
Sodium 138 mmol/L (135-145) 07/24/24 04:08
Potassium 4.2 mmol/L (3.5-5.1) 07/24/24 04:08
BUN 47 mg/dl (7-17) H 07/24/24 04:08
Creatinine 0.9 mg/dL (0.6-1.0) 07/24/24 04:08
Glucose 178 mg/dl (70-99) H 07/24/24 04:08
Digoxin 0.5 ng/ml (0.8-2.0) L 07/20/24 11:55
Vital Signs and I&O:
Vital Signs
Temp Pulse Resp BP Pulse Ox
97.4 F 87 18 111/95 89
07/24/24 07:05 07/24/24 11:25 07/24/24 11:25 07/24/24 10:00 07/24/24 11:25
Vital Signs
Temp Pulse Resp BP Pulse Ox
97.4 F 87 18 111/95 89
07/24/24 07:05 07/24/24 11:25 07/24/24 11:25 07/24/24 10:00 07/24/24 11:25
Intake & Output
07/22/24 07/23/24 07/24/24 07/25/24
06:59 06:59 06:59 06:59
Intake Total 990 / 990 575 / 575 765 / 765
Output Total 1100 / 1100 1800 / 1800 1650 / 1650
Balance -110 / -110 -1225 / -1225 -885 / -885
Physical Exam
Physical Exam
GEN: NAD
HEENT: MMM
LUNGS: 15 L mid flow
CV: Afib on tele
EXT: +1 B/L LE edema
NEURO: Gross non-focal
SKIN: No rash
[2024-07-24] MEDS: NOVOLOG FLEXPEN-LOW RESISTANCE 1 UNITS SC (13:00)
[2024-07-24 13:06] LABS: Glucose - Point of Care 152 mg/dl (70-99)
[2024-07-24] MEDS: TYLENOL 650 MG PO (13:33)
--- NOTE | 2024-07-24 13:33 | W.PN.HOSP.TC ---
Addendum entered and electronically signed by Sukhjinder Krueger MD 07/24/24 16:36:
Discussed with spouse over the phone
Will consult pulmonary given ongoing hypoxia. Check ABG
Original Note:
Today's Communication/Plan
-
Monitor vital signs see plan
Continue with diuresis
Wean oxygen as tolerated
Of oxygen does not improve then will need CT chest
Continue nebs
monitor INR
Assessment / Plan
Assessment / Plan
Gen-AAOx3, NAD
HEENT-NC, AT, anicteric, clear oral mm
Neck-supple
CV-reg, no M, +S1/S2
Lungs-clear B/L
Abd-soft, NT, ND
Ext-bilateral lower extremity edema, dusky and purple-colored lower extremities including toes
Musculoskeletal-no cyanosis, clubbing
Skin-warm and dry
Neuro-grossly non-focal
Psych-calm, cooperative
Acute metabolic encephalopathy -likely due to acute on chronic hypoxic respiratory failure due to acute on chronic heart failure. Doubt UTI, she has no symptoms. No signs of infection.
Chronic hypoxemic respiratory failure on 3 L baseline
-Patient given 1 mg Bumex, DuoNeb, methylprednisolone
-VBG shows pO2 of 69, pH of 7.46, pCO2 of 34
-BNP of 1270 from 2400 previously
-Chest x-ray shows prominence of bronchovascular markings possibly chronic versus mild vascular congestion
-Patient on 5 L oxygen currently
-cont diuresis w bumex
If symptoms do not improve then check CT chest
Acute on chronic heart failure with preserved EF exacerbation -continue IV Bumex.
Echocardiogram shows LVEF 70 to 75%, severe RV dilation and hypokinesis, moderately dilated LA, severely dilated RA, moderate TR, estimated PA pressure of 73 mmHg.
Suspect severe pulmonary hypertension related to obesity, CHAS, COPD, etc. Pulmonary hypertension related severe right heart failure.
Asymptomatic bacteriuria - doubt UTI. Hold further antibiotics, urine culture with ecoli. Discussed with patient.
AIYANA likely cardiorenal. Creatinine improved, 1.0.
Recent syncopal episode
-Patient with threat monitoring analyst prescribed by [facility] Cardiology
Bilateral lower extremity lymphedema with traumatic injuries
-Legs do not appear infected
-Outpatient follow-up with lymphedema clinic
Anxiety/depression
-Outpatient psychiatry follow-up
Persistent atrial fibrillation
-Continue Coumadin, INR daily
-Continue metoprolol
-Continue digoxin
Aortic stenosis status post TAVR
COPD without exacerbation
-Continue Brovana, Yupelri
monitor
Obstructive sleep apnea
Pulmonary hypertension
Moderate to severe tricuspid regurgitation
Essential hypertension
DM2 without hyperglycemia -hemoglobin A1c 7.4%.
-Hold metformin
-Continue Jardiance
Hyperlipidemia
-Continue statin
Anxiety
-Continue temazepam, duloxetine
Raynaud's
Meningioma
Morbid obesity due to excess calories -weight loss encouraged.
Hyperlipidemia
History of right posterior CVA
History of right parietal meningioma
-Following with Dr. Love
Presumed restless legs
-Continue ropinirole, gabapentin
Full code
I spent a total of 52 minutes with the patient or on the floor. More than 50% of this time involved counseling and coordination of care.
Anticipated Discharge: > 48 hours
Subjective/Interval History
-
Date of Service: July 24, 2024
denies chest pain
Objective Data
-
Labs:
Laboratory Results
07/24/24
04:08
PT 25.5 H
INR 2.31
Sodium 138
Potassium 4.2
Chloride 102
Carbon Dioxide 26
BUN 47 H
Creatinine 0.9
Glucose 178 H
Calcium 9.2
Total Bilirubin 2.3 H
AST 42 H
ALT 28
Alkaline Phosphatase 265 H
Vital Signs:
Vital Signs
Temp Pulse Resp BP Pulse Ox
97.5 F 87 18 111/95 89
07/24/24 11:05 07/24/24 11:25 07/24/24 11:25 07/24/24 10:00 07/24/24 11:25
I&O
07/23/24 07/24/24 07/25/24
06:59 06:59 06:59
Intake Total 575 / 575 765 / 765
Output Total 1800 / 1800 1650 / 1650
Balance -1225 / -1225 -885 / -885
--- NOTE | 2024-07-24 15:05 | PTCARENOTE ---
Assumed care of patient at beginning of this shift from previous RN with midflow in use at 7L. POx 95-96% but had 2 episodes of de-sat into the high 70s (with good pleth) requiring O2 increase to 15L as well as NRB. RT in room for one episode;
patient recovered and POx sensor moved to finger clip. POx currently 95%. Patient requested to go to commode for bm but was only able to stand at the side of the bed; placed on bedpan but only urinated. See worklist for full assessment and vital
signs.
--- NOTE | 2024-07-24 15:48 | CM ---
Chart reviewed and patient's oxygen needs have increased, patient's spouse requesting update from physician. Plan is skilled placement at [facility] when stable.
Plan; Skilled placement at [facility], need to make a referral.
--- NOTE | 2024-07-24 16:41 | PTCARENOTE ---
Patient to CT dept for PE study accompanied by this RN d/t O2 @ 10L midflow. Just returned to room and RT ilana ordered ABGs.
[2024-07-24] MEDS: COUMADIN 2 MG PO (17:06)
[2024-07-24 17:08] LABS: B.E. 4.6 mmol/L; HCO3 30.4 mmol/L (21-28); O2 Saturation % 98.5 % (94-98); PCO2 48 mmHg (32-35); PO2 93 mmHg (83-108); pH 7.41 (7.35-7.45)
[2024-07-24 17:20] LABS: Glucose - Point of Care 146 mg/dl (70-99)
[2024-07-24] MEDS: REQUIP 0.25 MG PO (19:48)
[2024-07-24] MEDS: TOPROL XL 50 MG PO (19:48)
[2024-07-24] MEDS: RESTORIL 15 MG PO (19:50)
[2024-07-24 21:59] LABS: Glucose - Point of Care 163 mg/dl (70-99)
--- NOTE | 2024-07-24 23:19 | PTCARENOTE ---
Caring for pt overnight. Although pt is aaox3 she is still very confused, forgetful and tearful. bed alarm on. Continues on 10LMF, will continue to wean. Afib on monitor. Q2T. Remains bedrest for now. Purewick for incontinence. BP's stable. Will
continue to monitor.
[2024-07-25] VITALS (16 sets, daily range): BP systolic 97–129; BP diastolic 53–98; PULSE 91–92; O2SAT 95; BMI 49.2
[2024-07-25 05:27] LABS: Hematocrit 49.7 % (37.0-47.0); Hemoglobin 15.9 g/dL (12.0-16.0); Mean Corpuscular Hgb 34.1 pg (27.0-31.0); Mean Corpuscular Volume 106.7 fL (81.0-99.0); Mean Platelet Volume 11.2 fL (7.4-10.4); Platelet Count 174 10^3/uL (130-400); Red Blood Cell Count 4.66 10^6/uL (4.20-5.40); Red Cell Dist. Width 17.5 % (11.5-14.5); White Blood Cell Count 7.8 10^3/uL (4.8-10.8)
[2024-07-25 05:40] LABS: INR 2.36; PT 25.8 Sec (11.4-14.6)
[2024-07-25 05:56] LABS: ALT (SGPT) 33 U/L (0-35); AST (SGOT) 44 U/L (14-36); Albumin 3.8 g/dl (3.5-5.0); Alkaline Phosphatase 302 U/L (38-126); Blood Urea Nitrogen 42 mg/dl (7-17); Calcium 9.3 mg/dl (8.4-10.2); Carbon Dioxide 35 mmol/L (22-30); Chloride 99 mmol/L (98-107); Estimated Creatinine Clearance 75 ml/min; Glucose 139 mg/dl (70-99); Potassium 4.4 mmol/L (3.5-5.1); Sodium 143 mmol/L (135-145); Total Bilirubin 2.7 mg/dl (0.2-1.3); Total Protein 7.5 g/dl (6.3-8.2); eGFR > 60.00
[2024-07-25] MEDS: PULMICORT 0.5 MG INH ×2 (07:34→20:09)
[2024-07-25] MEDS: SPIRIVA RESPIMAT 2.5 MCG 2 PUFF INH (07:34)
[2024-07-25] MEDS: VENTOLIN NEBULES 2.5 MG INH (07:34)
[2024-07-25 08:33] LABS: Glucose - Point of Care 97 mg/dl (70-99)
[2024-07-25] MEDS: NOVOLOG FLEXPEN-LOW RESISTANCE SC (08:37)
[2024-07-25] MEDS: KCL 20 MEQ PO (09:07)
[2024-07-25] MEDS: THERAGRAN 1 TABLET PO (09:07)
[2024-07-25] MEDS: NEURONTIN 300 MG PO ×3 (09:07→19:44)
[2024-07-25] MEDS: CYMBALTA DELAYED RELEASE 60 MG PO (09:07)
[2024-07-25] MEDS: VITAMIN B-12 2500 MCG PO (09:07)
[2024-07-25] MEDS: LIPITOR 10 MG PO (09:07)
[2024-07-25] MEDS: DESENEX/MITRAZOL/ZEASORB 1 APPLIC TOPICAL ×2 (09:08→19:45)
[2024-07-25] MEDS: OSCAL 500 + D 500 MG PO (09:08)
[2024-07-25] MEDS: HYDROPHOR 1 APPLIC TOPICAL (09:08)
[2024-07-25] MEDS: TOPROL XL 100 MG PO (09:08)
[2024-07-25] MEDS: FARXIGA 10 MG PO (09:08)
[2024-07-25] MEDS: LANOXIN 125 MCG PO (09:08)
[2024-07-25] MEDS: STERILE WATER FOR INJECTION 10 ML IV (09:27)
[2024-07-25] MEDS: ROCEPHIN 1000 MG IV (09:27)
--- NOTE | 2024-07-25 09:27 | CON.PUL ---
Consultation
Consultation Request
Date/Time Consultation Requested: 07/25/2024
Date/Time Consultation Performed: 07/25/2024
Requesting Provider: Dr. Krueger
Performing Provider: Dr. Mike Maharaj
Reason for Consultation: Acute on chronic hypoxemic respiratory failure/chronic hypercapnic respirat
Medical History
-
History of Present Illness:
Patient is a 68 year old F with PMHx of COPD, HTN, HLD, anxiety, CHAS intolerant to CPAP, s/p TAVR, Afib on coumadin, pulmonary HTN, chronic hypoxic respiratory failure on 3L home O2, HFpEF brought by her presented after her son received
some incoherent texting. Patient was confused. Patient was noted to be short of breath and hypoxemic with pulse ox down to 50%. She was noted to be cyanotic at home. reports weight was up on admission.
Also worsening lower extremity swelling spread
There was no signs or symptoms of infection.
Chest x-ray was consistent with CHF.
proBNP was elevated.
Patient has been diuresed.
Persistently hypoxemic requiring oxygen up to 6 L and sometimes on mid flow oxygen. We were consulted on 07/24/2024 for evaluation of her hypoxemia.
-
Of note, patient does have history of asthma/COPD follows up with , she also has obstructive sleep apnea very severe intolerant to CPAP. Also chronic hypercapnic respiratory failure on 3 L of oxygen as well.
She is kept on nebulizer therapy.
Past Medical History
Past Medical History: Other (see list below)
Social History
Tobacco: Non-smoker
Alcohol: None
Drug: None
Family History
Family History: Reviewed & Not Pertinent
Allergies / Home Medications
Allergies
Allergy/AdvReac Type Severity Reaction Status Date / Time
amoxicillin trihydrate Allergy patient Verified 07/20/24 11:25
[From Augmentin] states
severe
nausea and
intestinal
pain
cat dander Allergy Sinus Verified 07/20/24 11:25
congestion
cigarette smoke Allergy Positive Verified 07/20/24 11:25
skin test
to tobacco
dog dander Allergy Sinus Verified 07/20/24 11:25
congestion
grass pollen Allergy Sinus Verified 07/20/24 11:25
congestion,
cough
levofloxacin [From Levaquin] Allergy GI Symptoms Verified 07/20/24 11:25
mold Allergy Sinus Verified 07/20/24 11:25
congestion,
cough
Sulfa (Sulfonamide Allergy INTESTINAL Verified 07/20/24 11:25
Antibiotics) PAIN
tree and shrub pollen Allergy Sinus Verified 07/20/24 11:25
congestion,
cough
Home Medications
�Medication �Instructions �Recorded �Confirmed �Last Taken �Type
duloxetine 60 mg capsule,delayed 60 mg PO DAILY Mental 01/11/14 07/20/24 07/19/24 History
release Health/Anxiety
atorvastatin 10 mg tablet 10 mg PO DAILY High cholesterol 02/10/22 07/20/24 07/20/24 History
metformin 500 mg tablet 500 mg PO BID Diabetes 02/10/22 07/20/24 07/19/24 08:00 History
metoprolol succinate 50 mg 100 mg PO DAILY Blood pressure 02/10/22 07/20/24 07/19/24 History
tablet,extended release 24 hr
revefenacin 175 mcg/3 mL solution 175 mcg inhalation R DAILY 02/10/22 07/20/24 07/19/24 History
for nebulization (Yupelri) Lung/breathing issues
arformoterol 15 mcg/2 mL solution 2 ml inhalation R BID 04/02/22 07/20/24 07/19/24 08:00 History
for nebulization (Brovana) Lung/breathing issues
budesonide 0.5 mg/2 mL suspension 0.5 mg inhalation R BID 04/02/22 07/20/24 07/19/24 08:00 History
for nebulization Lung/breathing issues
cyanocobalamin (vitamin B-12) 2,500 mcg sublingual DAILY 04/02/22 07/20/24 04/28/24 History
2,500 mcg sublingual tablet Supplement
(Vitamin B-12)
calcium 500 mg (as 500 mg PO DAILY Supplement 04/08/22 07/20/24 04/28/24 History
carbonate)-vitamin D3 5 mcg (200
unit) tablet (Oyster Shell
Calcium-Vitamin D3)
biotin 10,000 mcg chewable tablet 10,000 mcg PO DAILY Supplement 01/19/24 07/20/24 04/28/24 History
(Hair, Skin and Nails (biotin))
digoxin 125 mcg (0.125 mg) tablet 125 mcg PO SUTUTHSA@0800 Heart 03/03/24 07/20/24 07/18/24 History
Disease/Condition
metoprolol succinate 50 mg 50 mg PO HS Arrhythmia 03/03/24 07/20/24 04/28/24 History
tablet,extended release 24 hr
potassium chloride 20 mEq 20 meq PO DAILY #3 tabs 03/08/24 07/20/24 07/19/24 Rx
tablet,extended release
gabapentin 300 mg capsule 300 mg PO HS Pain 04/29/24 07/20/24 04/28/24 History
gabapentin 300 mg capsule 600 mg PO DAILY@1500 Pain 04/29/24 07/20/24 04/28/24 History
ropinirole 0.25 mg tablet 0.25 mg PO HS Neurological 04/29/24 07/20/24 07/18/24 History
Condition
temazepam 15 mg capsule 15 mg PO HS Sleep 04/29/24 07/20/24 07/18/24 History
therapeutic multivitamin 1 tab PO DAILY Supplement 04/29/24 07/20/24 04/28/24 History
empagliflozin 10 mg tablet 10 mg PO DAILY Diabetes 07/20/24 07/20/24 07/19/24 History
(Jardiance)
warfarin 2 mg tablet 2 mg PO DAILY Blood Clot 07/20/24 07/20/24 07/20/24 History
Prevention/Tx
torsemide 20 mg tablet 40 mg PO BID@0800,1600 Fluid 07/21/24 07/20/24 07/19/24 08:00 History
Retention/Swelling
Review of Systems
-
History Source: Patient
All other systems: Negative unless noted
Vitals / Labs / Diagnostic Testing
Vital Signs
Temp Pulse Resp BP Pulse Ox
97.6 F 84 18 119/91 92
07/25/24 07:05 07/25/24 09:08 07/25/24 07:41 07/25/24 06:00 07/25/24 07:41
Lab Data
07/25/24 05:20
07/25/24 05:20
Laboratory Results
07/24/24 07/25/24
16:33 05:20
PT 25.8 H
INR 2.36
pH 7.41
pCO2 48 H
pO2 93
HCO3 30.4 H
O2 Delivery Level
Microbiology
07/20/24 20:02 Urine Urine Culture - Final
Escherichia coli
07/20/24 20:02 Nose MRSA Screen - Final
No Methicillin Resistant Staphylococcus aureus isolated.
Diagnostic Testing:
Physical Exam
-
HEENT: Normocephalic
Cardiovascular: S1/S2
Respiratory: Clear and Non-Labored Respirations
GI: Soft and Distended (Obese)
Neurology: Awake, Alert and Oriented
Skin: Warm and Other (Lower extremities with venous stasis. Chronic edema.)
General: Comfortable
Assessment
-
Patient is a 68 year old F with PMHx of COPD, HTN, HLD, anxiety, CHAS intolerant to CPAP, s/p TAVR, Afib on coumadin, pulmonary HTN, chronic hypoxic/hypercapnic respiratory failure on 3L home O2, HFpEF -in the hospital in early May with acute
hypoxemic respiratory failure due to heart failure and responded to diuresis. Back with hypoxemia, increased proBNP and possibly volume overload. Despite diuresis remains on mid flow oxygen. I was consulted on 07/25/2024 for evaluation of
persistent hypoxemia despite diuresis.
Acute on chronic hypoxemic respiratory failure usually on 3 L supplemental oxygen
Acute HFpEF exacerbation.
Chronic pulmonary hypertension: Multiple mechanisms: Cardiac disease/underlying sleep disorder-obstructive sleep apnea/chronic hypercapnic respiratory failure/underlying pulmonary disease.
Intolerant to CPAP/BiPAP
History of medical noncompliance
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
Admission to [facility] 05/2024 with acute/chronic heart failure.
Reported history of COPD/asthma, follows with Russ Smith
Atrial flutter with RVR (new onset)
Mild�moderate pulmonary hypertension with PASP 45�50 assuming an RAP of 15 mmHg
Severe CHAS intolerant to CPAP (per patient) with secondary polycythemia (initial Hb 18.5 on 01/19/2024)
Suspected OHS
Morbid obesity, BMI 48
Hypertension
Hyperlipidemia
DM type II
Aortic stenosis s/p TAVR
Anxiety
History of CVA
Former tobacco smoker (quit 1999)
Plan:
-
Patient has been admitted for the last 5 days for hypoxemia and shortness of breath-ongoing diuresis, her weight is trending lower.
Despite diuresis no significant improvement in hypoxemia.
I was consulted for evaluation of persistent hypoxemia on 07/24/2024.
-
Patient known to our service from prior admission-usually follows up with outside pulmonary for COPD/asthma/obstructive sleep apnea possibly obesity hypoventilation syndrome that is untreated/pulmonary hypertension due to above.
reports that patient has not been using her nebulizers or her vest therapy at home for weeks. She does have history of chronic coughing and phlegm production.
She has a noninvasive mechanical ventilator at home that she is supposed to use at night but she is not consistent. She has a nasal mask.
-
Suspect persistent hypoxemia explained by pulmonary edema given findings on CAT scan of the chest with bilateral effusions and increased interstitial markings.
There is no evidence for pneumonia or interstitial lung disease.
No evidence for significant emphysema.
No evidence for pulmonary embolism patient on anticoagulation as well.
-
COPD/asthma: Not bronchospastic on exam.
On nebulized therapy-budesonide/albuterol as well as Spiriva while in the hospital.
Mild rhonchi on exam-good air movement: Not bronchospastic.
No indication for systemic corticosteroids.
Not impressive for significant acute exacerbation of asthma/COPD.
Will optimize nebulizer therapy. Patient has not been using for several weeks, she also stopped using her percussion therapy.
Start Pulmicort/DuoNebs. Hold inhalers
Acapella device also will be started. She usually uses vest therapy at home but she does not like it and has not been using for several weeks.
-
Yupelri/AFormoterol/budesonide in the outpatient setting(restart upon discharge)
Patient reports difficulty expectorating: She has percussion therapy at home. vest therapy, patient benefited from this during our last visit- she does not like ti. She states that she has a chronic cough at home-Acapella device
-
Immobility/subsegmental atelectasis also likely contributing.
Patient is mainly sedentary at home
Incentive spirometry will be ordered and encourage.
Hopefully we can start mobilizing her
-
Does have moderate to severe pulmonary hypertension with RV dysfunction: Suspect due to untreated sleep disorder and chronic hypercapnia.
Patient has chronic hypercapnic respiratory failure: Due to severe obstructive sleep apnea as well as likely obesity hypoventilation syndrome.
Intolerant to noninvasive mechanical ventilation in the past.
This will explain her worsening pulmonary hypertension.
Patient is aware/ is aware
Noninvasive mechanical ventilator was arranged last visit and she received that at home. She has not been consistent with usage per .
I instructed the to bring her noninvasive ventilator to hopefully started at night and with naps.
She has been explained in the past that lack of usage of noninvasive mechanical ventilation will increase risk of readmission, and progressive pulmonary hypertension.
Avoid sedative.
-
Cardiology correspondence reviewed.
Continue IV Bumex
Monitor electrolytes and creatinine
Weight is trending lower
-
If there is no ongoing improvement on hypoxemia despite aggressive diuresis her right heart catheterization will be needed, this has been contemplated in the past.
Follow daily weights-trending lower
-
History of CVA, CT head showing meningioma-neurologically intact
-
DVT prophylaxis-on warfarin, INR now greater than [address] Maharaj updated at the bedside 07/25/2024
She ultimately will follow-up with her private gate operator, Dr. Smith.
Will follow

Diagnostic Data
CXR 01/19/24- Mild pulmonary edema. No definite pleural effusion.
-
CT chest 07/24/2024: Reviewed
Negative for pulmonary embolism.
Enlargement of the main pulmonary artery as well as the right ventricle and right atrium. TAVR in place. Small bilateral pleural effusions, left greater than right. Mild peripheral increase interstitial markings suggestive of interstitial
pulmonary edema.
-
CTA Chest 01/19/2024: No evidence of pulmonary embolism or active pulmonary process. Bilateral hilar lymphadenopathy. It is difficult to evaluate for hilar lymphadenopathy on the previous CT from 09/09/2022 given the absence of intravenous contrast on
this exam. Mediastinal lymphadenopathy is unchanged. Dilated pulmonary arterial system which can be seen in the setting of pulmonary arterial hypertension.
CT Head 03/03/24- 1). There are no acute intracranial abnormalities
2). Old 6.5 cm right occipital infarct
3). 2.8 cm meningioma over the anterolateral right parietal convexity
Echocardiogram 07/21/2024: Reviewed
Normal LVEF.
Mild LVH.
Flattened septum in systole and diastole consistent with RV pressure and volume overload.
Left ventricular ejection fraction 70 to 75%.
Severely dilated and hypokinetic right ventricle.
Moderately dilated left atrium
Severely dilated right atrium
Mitral stenosis-mild.
Mild MR.
Moderate TR. Estimated pulmonary pressure 73 mmHg.
Compared to 07/10/2024-mitral gradient is increased 12/5 from /. Aortic gradient is increased 12/6 from 10/06. No other significant changes
ECHO 01/19/24- Hyperdynamic left ventricular systolic function. LV ejection fraction is 70- 75%. Mild mitral stenosis. s/p TAVR 29 mm Medtronic Evolut. Peak/mean gradients across the aortic valve are 8/5 mmHg. No aortic regurgitation. Enlarged right
ventricular size. Reduced right ventricular systolic function. Septal flattening in systole and diastole consistent with RV pressure and volume overload. Mild tricuspid regurgitation. Moderately elevated PASP. Estimated pulmonary artery pressure of
45-50 mmHg assuming a right atrial pressure of 15 mmHg. Compared to 05/01/22: RV dysfunction is now present. PASP was unable to be measured on prior study.
Reports and relevant images were personally reviewed.
[2024-07-25] MEDS: BUMEX 2 MG IV (10:08)
[2024-07-25] MEDS: TYLENOL 650 MG PO (10:44)
[2024-07-25] MEDS: DUONEB 3 ML INH ×2 (11:12→20:09)
--- NOTE | 2024-07-25 12:02 | W.PN.CARDCBS ---
Addendum entered and electronically signed by Maicol Kennedy MD 07/25/24 12:23:
I saw and examined the patient.
The [employer]ENT [employer] or PA's note was reviewed and I agree with the note.
Comment: General: Well developed, well nourished in NAD.
Neck: Supple, no JVD, HJR, carotids +2 B/L, no bruits bilaterally.
Heart: Non displaced PMI, RRR, no murmurs, No S3, S4, no rubs.
Lungs: Scattered rhonchi
Extremities: No clubbing, cyanosis or edema bilaterally.
Neuro: Grossly nonfocal, awake, alert and oriented x3.
She remains severely hypoxemic despite diuresis. Will try to increase Bumex 3 mg IV twice daily and await pulmonary input. Discussed with nursing and primary service
Original Note:
Today's Communication / Plan
-
Increase Bumex to 3 mg IV BID, ordered by me
Impression / Plan
-
Primary Marine Electrician Apprentice: Dr. CHAVA Alejandro
Assessment:
Admitted with confusion/metabolic encephalopathy 07/20/24
Acute on chronic hypoxemic respiratory failure
Acute on chronic HFpEF
AIYANA
Admission to [facility] for syncope vs fall 07/10-07/11/24
LE wounds
Persistent AFib
NSVT, 07/21/24
Chronic Coumadin therapy, managed by cardiology
Essential HTN
DM2
h/o TAVR 2021
Severe pulm HTN
COPD, chronically on 3L NC
h/o R post CVA
h/o R parietal meningioma
CHAS: intolerant of CPAP
Hyperlipidemia
Morbid obesity
Chronic lymphedema
History of PE
Uncharacterized liver lesion
Subclinical hyperthyroidism
History of gastric bypass
Depression/anxiety/insomnia with history of serotonin syndrome admission 03/2024
Polypharmacy
History of falls
Echo 07/10/2024: EF 70 to 75%, evidence of RV pressure and volume overload, mild concentric LVH, MAC, mild MS with peak/mean gradients 9/5 mmHg, trace MR, number 29 mm Medtronic evolute TAVR with peak/mean gradient 6/3 mmHg, moderate to severe TR,
PAP 79 mmHg, severely dilated right heart, no significant change compared to prior
Echo 07/21/24:EF 70-75%, dilated RV with RV hypokinesis, mean mitral gradient 5, mild MR, status post Evolut transcatheter aortic valve with mean gradient of 6 and no AI, moderate TR with PA pressure 73
Plan:
-Patient presents with confusion and TME likely secondary to acute on chronic hypoxemic respiratory failure with CHF/COPD/obesity/CHAS/pulm HTN.
-Pulmonology note reviewed by me 07/25/2024, they suspect that ongoing hypoxemia is related to ongoing CHF. They do not suspect PNA, ILD or emphysema.
-Patient was taking torsemide 40 mg PO BID prior to admission. Currently ordered Bumex 2 mg IV BID which is an equivalent dose. Will increased to Bumex 3 mg IV BID
-Cre was 1.3 on admission, but has improved with ongoing diuresis. Cre stable at 0.9 on 07/25/2024 labs reviewed by me
-EF 70-75% by echo 07/21/24 and TAVR mean gradient 6 mmHg without any AI
-Outpatient dose of Toprol-XL changed to 100 mg AM and 50 mg PM daily following episode of NSVT
-Outpatient dose of Jardiance 10 mg daily was transition to Farxiga 10 mg daily due to formulary changes at , but should resume Jardiance upon D/C to home
-Patient was not taking VIVEK/ARB/ARNI/aldosterone antagonist prior to admission due to hypotension and previous episode of hypotension and syncope with spironolactone on 07/12/2024
-She did have an episode of NSVT 07/21/24, no further VT.
-Potassium stable at 4.4 on 07/25/2024. Magnesium level was 2.3 on 07/21/2024.
-Patient with known persistent A-fib. HR controlled with Toprol-XL, dose increased this admission as noted above, and also chronic outpatient dose of digoxin 125 mcg SuTuThSa. Digoxin level 0.5 on 07/20/2024
-Patient is chronically on warfarin with INR goal of 2-3 as managed by cardiology. Patient uses a home monitor. INR 2.36 on 07/25/24
Progress Note - Marine Electrician Apprentice
Subjective
Date of Service: July 25, 2024
Still SOB
Objective
Labs:
07/25/24 05:20
07/25/24 05:20
Labs
Hgb 15.9 g/dL (12.0-16.0) 07/25/24 05:20
Hct 49.7 % (37.0-47.0) H 07/25/24 05:20
Plt Count 174 10^3/uL (130-400) 07/25/24 05:20
PT 25.8 Sec (11.4-14.6) H 07/25/24 05:20
INR 2.36 07/25/24 05:20
Sodium 143 mmol/L (135-145) 07/25/24 05:20
Potassium 4.4 mmol/L (3.5-5.1) 07/25/24 05:20
BUN 42 mg/dl (7-17) H 07/25/24 05:20
Creatinine 0.9 mg/dL (0.6-1.0) 07/25/24 05:20
Glucose 139 mg/dl (70-99) H 07/25/24 05:20
Digoxin 0.5 ng/ml (0.8-2.0) L 07/20/24 11:55
Vital Signs and I&O:
Vital Signs
Temp Pulse Resp BP Pulse Ox
97.6 F 88 15 109/98 95
07/25/24 07:05 07/25/24 11:12 07/25/24 11:12 07/25/24 10:00 07/25/24 11:12
Vital Signs
Temp Pulse Resp BP Pulse Ox
97.6 F 88 15 109/98 95
07/25/24 07:05 07/25/24 11:12 07/25/24 11:12 07/25/24 10:00 07/25/24 11:12
Intake & Output
07/23/24 07/24/24 07/25/24 07/26/24
06:59 06:59 06:59 06:59
Intake Total 575 / 575 765 / 765
Output Total 1800 / 1800 1650 / 1650 1500 / 1500 300 / 300
Balance -1225 / -1225 -885 / -885 -1500 / -1500 -300 / -300
Physical Exam
Physical Exam
GEN: NAD
HEENT: MMM
LUNGS: 15 L mid flow
CV: Afib on tele
EXT: +1 B/L LE edema
NEURO: Gross non-focal
SKIN: No rash
[2024-07-25] MEDS: NOVOLOG FLEXPEN-LOW RESISTANCE 1 UNITS SC ×2 (12:30→17:25)
[2024-07-25 12:33] LABS: Glucose - Point of Care 175 mg/dl (70-99)
--- NOTE | 2024-07-25 12:47 | W.PN.HOSP.TC ---
Today's Communication/Plan
-
Monitor vital signs see plan
Wean oxygen as tolerated
Bumex increased
Continue with Coumadin
Continue with Pulmicort, DuoNeb
started CFTX
Discussed with spouse at bedside
Assessment / Plan
Assessment / Plan
Gen-AAOx3, NAD
HEENT-NC, AT, anicteric, clear oral mm
Neck-supple
CV-reg, no M, +S1/S2
Lungs-clear B/L
Abd-soft, NT, ND
Ext-bilateral lower extremity edema, dusky and purple-colored lower extremities including toes
Musculoskeletal-no cyanosis, clubbing
Skin-warm and dry
Neuro-grossly non-focal
Psych-calm, cooperative
Acute metabolic encephalopathy -likely due to acute on chronic hypoxic respiratory failure due to acute on chronic heart failure.
Suspect encephalopathy can be secondary to urinary tract infection, started ceftriaxone. Patient does have increased urgency, dysuria
Chronic hypoxemic respiratory failure on 3 L baseline
cw duoneb; cw bumex
abg noted
-BNP of 1270 from 2400 previously
-Chest x-ray shows prominence of bronchovascular markings possibly chronic versus mild vascular congestion
-Patient on 10 L oxygen currently; wean oxygen as tolerated
-cont diuresis w bumex
CT chest with interstitial edema; no PE
Pulmonary consulted, patient has a manager benefit outpatient and has been on nocturnal noninvasive vent. Pulmonary requested patient to get that from home to be used here
Possibility of acute atelectasis as well
Acute on chronic heart failure with preserved EF exacerbation -continue IV Bumex.
Echocardiogram shows LVEF 70 to 75%, severe RV dilation and hypokinesis, moderately dilated LA, severely dilated RA, moderate TR, estimated PA pressure of 73 mmHg.
Suspect severe pulmonary hypertension related to obesity, CHAS, COPD, etc. Pulmonary hypertension related severe right heart failure.
Ecoli UTI
cw abx
AIYANA likely cardiorenal. Creatinine improving
Recent syncopal episode
-Patient with cardiac cath lab technologist prescribed by [facility] Cardiology
Bilateral lower extremity lymphedema with traumatic injuries
-Legs do not appear infected
-Outpatient follow-up with lymphedema clinic
Anxiety/depression
-Outpatient psychiatry follow-up
Persistent atrial fibrillation
-Continue Coumadin, INR daily
-Continue metoprolol
-Continue digoxin
Aortic stenosis status post TAVR
COPD without exacerbation
-Continue Brovana, Yupelri
monitor
Obstructive sleep apnea
Pulmonary hypertension
Moderate to severe tricuspid regurgitation
Essential hypertension
DM2 without hyperglycemia -hemoglobin A1c 7.4%.
-Hold metformin
-Continue Jardiance
Hyperlipidemia
-Continue statin
Anxiety
-Continue temazepam, duloxetine
Raynaud's
Meningioma
Morbid obesity due to excess calories -weight loss encouraged.
Hyperlipidemia
History of right posterior CVA
History of right parietal meningioma
-Following with Dr. Love
Presumed restless legs
-Continue ropinirole, gabapentin
Full code
I spent a total of 53 minutes with the patient or on the floor. More than 50% of this time involved counseling and coordination of care.
Anticipated Discharge: > 48 hours
Subjective/Interval History
-
Date of Service: July 25, 2024
Denies chest pain
Objective Data
-
Labs:
Laboratory Results
07/25/24
05:20
WBC 7.8
Hgb 15.9
Hct 49.7 H
Plt Count 174
PT 25.8 H
INR 2.36
Sodium 143
Potassium 4.4
Chloride 99
Carbon Dioxide 35 H
BUN 42 H
Creatinine 0.9
Glucose 139 H
Calcium 9.3
Total Bilirubin 2.7 H
AST 44 H
ALT 33
Alkaline Phosphatase 302 H
Vital Signs:
Vital Signs
Temp Pulse Resp BP Pulse Ox
97.6 F 88 15 109/98 95
07/25/24 07:05 07/25/24 11:12 07/25/24 11:12 07/25/24 10:00 07/25/24 11:12
I&O
07/24/24 07/25/24 07/26/24
06:59 06:59 06:59
Intake Total 765 / 765
Output Total 1650 / 1650 1500 / 1500 300 / 300
Balance -885 / -885 -1500 / -1500 -300 / -300
--- NOTE | 2024-07-25 13:52 | PN.CDI ---
CDI
- -
CDI:
Physician Documentation Request
Admit Date: 07/20/24 14:04
Dear Doctor Evans,
Patient admitted with acute on chronic diastolic CHF.
07/21 Nursing skin assessment by JOSELO, 'Stage 3 right buttock pressure injury, POA.'
Physician documentation of the type and location of wounds is required for compliant documentation. Based on the above clinical findings and your assessment, please provide the following in your progress note:
Type (etiology) of ulcer/wound:
- Pressure (decubitus) ulcer
- Other
- Unable to determine
For a pressure ulcer, please also include the stage* of the ulcer:
- Stage 1 - Skin intact, non-blanchable redness
- Stage 2 - Partial thickness loss of dermis, includes intact or open blister
- Stage 3 - Full thickness tissue not including bone, tendon or muscle
- Stage 4 - Full thickness tissue loss, including exposed bone, tendon or muscle
- Unstageable - Full thickness loss in which the base of the ulcer is covered by slough (yellow, lopez, munoz, green or brown) and/or eschar (lopez, brown or black) in the wound bed.
- Unable to determine
Use of terms such as suspected, likely, concern for, or probable (associated with a specific diagnosis that is being evaluated, monitored, or treated as if it exists) are acceptable and can be coded in the inpatient setting, when documented at the
time of discharge.
Thank you,
Rosa PINTO,RN,CCDS
CDI Specialist
Available via [employer] text
Please use your independent medical judgment in providing your response.
*Source: National Pressure Ulcer Advisory Panel (NPUAP)
[2024-07-25] MEDS: BUMEX 3 MG IV (17:13)
[2024-07-25] MEDS: COUMADIN 2 MG PO (17:13)
[2024-07-25 17:35] LABS: Glucose - Point of Care 161 mg/dl (70-99)
[2024-07-25] MEDS: DUONEB INH (18:19)
[2024-07-25] MEDS: TOPROL XL 50 MG PO (19:45)
[2024-07-25] MEDS: REQUIP 0.25 MG PO (19:45)
[2024-07-25] MEDS: RESTORIL 15 MG PO (19:45)
[2024-07-25 22:19] LABS: Glucose - Point of Care 155 mg/dl (70-99)
[2024-07-26] VITALS (15 sets, daily range): BP systolic 88–141; BP diastolic 57–119; BMI 48.9
[2024-07-26 04:11] LABS: Hemoglobin 16.5 g/dL (12.0-16.0); Mean Corp Hgb Conc. 31.7 g/dL (33.0-37.0); Mean Platelet Volume 11.6 fL (7.4-10.4); Platelet Count 185 10^3/uL (130-400); Red Blood Cell Count 4.86 10^6/uL (4.20-5.40); Red Cell Dist. Width 17.8 % (11.5-14.5); White Blood Cell Count 7.7 10^3/uL (4.8-10.8)
[2024-07-26 04:31] LABS: INR 2.44; PT 26.5 Sec (11.4-14.6)
[2024-07-26 04:37] LABS: ALT (SGPT) 30 U/L (0-35); AST (SGOT) 40 U/L (14-36); Albumin 3.8 g/dl (3.5-5.0); Alkaline Phosphatase 284 U/L (38-126); Blood Urea Nitrogen 35 mg/dl (7-17); Calcium 9.1 mg/dl (8.4-10.2); Carbon Dioxide 32 mmol/L (22-30); Chloride 100 mmol/L (98-107); Estimated Creatinine Clearance 75 ml/min; Glucose 134 mg/dl (70-99); Potassium 3.8 mmol/L (3.5-5.1); Sodium 142 mmol/L (135-145); Total Bilirubin 2.9 mg/dl (0.2-1.3); Total Protein 7.7 g/dl (6.3-8.2); eGFR > 60.00
--- NOTE | 2024-07-26 04:37 | PTCARENOTE ---
Patient on home cpap for a few hours throughout the night before ripping it off. Placed back on 12 liters. Patient confused and forgetful at times.
[2024-07-26] MEDS: PULMICORT 0.5 MG INH ×2 (07:28→19:34)
[2024-07-26] MEDS: DUONEB 3 ML INH ×4 (07:29→19:34)
[2024-07-26 07:41] LABS: Glucose - Point of Care 105 mg/dl (70-99)
[2024-07-26] MEDS: NOVOLOG FLEXPEN-LOW RESISTANCE SC ×2 (08:32→17:34)
[2024-07-26] MEDS: LIPITOR 10 MG PO (08:34)
[2024-07-26] MEDS: VITAMIN B-12 2500 MCG PO (08:34)
[2024-07-26] MEDS: FARXIGA 10 MG PO (08:34)
[2024-07-26] MEDS: OSCAL 500 + D 500 MG PO (08:34)
[2024-07-26] MEDS: KCL 20 MEQ PO (08:35)
[2024-07-26] MEDS: THERAGRAN 1 TABLET PO (08:35)
[2024-07-26] MEDS: CYMBALTA DELAYED RELEASE 60 MG PO (08:35)
[2024-07-26] MEDS: NEURONTIN 300 MG PO ×3 (08:35→20:37)
[2024-07-26] MEDS: BUMEX 3 MG IV ×3 (08:35→17:10)
[2024-07-26] MEDS: HYDROPHOR 1 APPLIC TOPICAL (08:36)
[2024-07-26] MEDS: DESENEX/MITRAZOL/ZEASORB 1 APPLIC TOPICAL ×2 (08:36→20:38)
[2024-07-26] MEDS: TOPROL XL PO ×2 (09:15→12:00)
--- NOTE | 2024-07-26 09:32 | PTCARENOTE ---
Patient received from shift superintendent. Patient is resting comfortably in bed. AAO with some AM confusion, VSS. No events noted overnight. No complaints of pain at this time. Will attempt to get OOB to chair. Patient currently on 14L Midflow N/C,
wore home BiPAP overnight for a few hours. Patient remains without BM, will continue to monitor. Continuing ABX. . No further testing scheduled at this time. Call avitia in reach.
--- NOTE | 2024-07-26 09:42 | W.PN.CARDCBS ---
Addendum entered and electronically signed by Javier Logan MD 07/26/24 14:06:
I saw and examined the patient.
The Civil Project Engineer's note was reviewed and I agree with the note.
Comment: Briefly, 68-year-old woman past medical history of heart failure with preserved ejection fraction and persistent atrial fibrillation who presents with acute on chronic heart failure
Remains significantly volume overloaded on exam and still requiring approximately 12 L of supplemental oxygen via nasal cannula earlier today
Has not had significant improvement despite escalating doses of diuretic
Plan to increase Bumex to 3 mg TID today
If no response will trial metolazone tomorrow
Continue SGLT2
Follow renal function/electrolytes closely. Ideally would have daily standing weights. Wean oxygen as able.
Remains in atrial fibrillation
Chronically on metoprolol and digoxin for rate control
Given marginal blood pressure this morning metoprolol was held, may need to decrease standing metoprolol dose
Continue warfarin for cardioembolic prophylaxis
Rest per Rhonda Eaton
Original Note:
Today's Communication / Plan
-
Extra dose of Bumex 3 mg IV this afternoon for a total of TID today
If no improvement then will try metolazone tomorrow
Impression / Plan
-
Primary Diesel Plant Operator: Dr. CHAVA Alejandro
Assessment:
Admitted with confusion/metabolic encephalopathy 07/20/24
Acute on chronic hypoxemic respiratory failure
Acute on chronic HFpEF
AIYANA
Admission to [facility] for syncope vs fall 07/10-07/11/24
LE wounds
Persistent AFib
NSVT, 07/21/24
Chronic Coumadin therapy, managed by cardiology
Essential HTN
DM2
h/o TAVR 2021
Severe pulm HTN
COPD, chronically on 3L NC
h/o R post CVA
h/o R parietal meningioma
CHAS: intolerant of CPAP
Hyperlipidemia
Morbid obesity
Chronic lymphedema
History of PE
Uncharacterized liver lesion
Subclinical hyperthyroidism
History of gastric bypass
Depression/anxiety/insomnia with history of serotonin syndrome admission 03/2024
Polypharmacy
History of falls
Echo 07/10/2024: EF 70 to 75%, evidence of RV pressure and volume overload, mild concentric LVH, MAC, mild MS with peak/mean gradients 9/5 mmHg, trace MR, number 29 mm Medtronic evolute TAVR with peak/mean gradient 6/3 mmHg, moderate to severe TR,
PAP 79 mmHg, severely dilated right heart, no significant change compared to prior
Echo 07/21/24:EF 70-75%, dilated RV with RV hypokinesis, mean mitral gradient 5, mild MR, status post Evolut transcatheter aortic valve with mean gradient of 6 and no AI, moderate TR with PA pressure 73
Plan:
-Pulmonology note reviewed and they suspect that ongoing hypoxemia is related to ongoing CHF. They do not suspect PNA, ILD or emphysema.
-Weight down 1 lb overnight following increased Bumex dose to 3 mg IV BID. Patient was taking torsemide 40 mg PO BID prior to admission and initially ordered Bumex 2 mg IV BID for diuresis which is an equivalent dose. Will try an extra dose of Bumex
3 mg IV mid-day on 07/26/24 and pending response will add metolazone in 07/27/24
-Cre 0.9 07/26/24, but as high as 1.3 on admission
-EF 70-75% by echo 07/21/24 and TAVR mean gradient 6 mmHg without any AI
-Patient was taking Toprol XL 50 mg BID prior to admission, but dose increased following episode of NSVT. Now with intermittent daytime hypotension and dose lowered back down to 50 mg BID starting 07/26/2024
-Outpatient dose of Jardiance 10 mg daily was transition to Farxiga 10 mg daily due to formulary changes at , but should resume Jardiance upon D/C to home
-Patient was not taking VIVEK/ARB/ARNI/aldosterone antagonist prior to admission due to hypotension. Previous episode of hypotension and syncope with spironolactone on 07/12/2024
-She did have an episode of NSVT 07/21/24, no further VT.
-Patient with known persistent A-fib. HR controlled with Toprol-XL and chronic outpatient dose of digoxin 125 mcg SuTuThSa. Digoxin level 0.5 on 07/20/2024
-Patient is chronically on warfarin with INR goal of 2-3 as managed by cardiology. Patient uses a home monitor. INR 2.44 on 07/26/24
Progress Note - Diesel Plant Operator
Subjective
Date of Service: July 26, 2024
Still SOB
Objective
Labs:
07/26/24 03:31
07/26/24 03:31
Labs
Hgb 16.5 g/dL (12.0-16.0) H 07/26/24 03:31
Hct 52.0 % (37.0-47.0) H 07/26/24 03:31
Plt Count 185 10^3/uL (130-400) 07/26/24 03:31
PT 26.5 Sec (11.4-14.6) H 07/26/24 03:31
INR 2.44 07/26/24 03:31
Sodium 142 mmol/L (135-145) 07/26/24 03:31
Potassium 3.8 mmol/L (3.5-5.1) 07/26/24 03:31
BUN 35 mg/dl (7-17) H 07/26/24 03:31
Creatinine 0.9 mg/dL (0.6-1.0) 07/26/24 03:31
Glucose 134 mg/dl (70-99) H 07/26/24 03:31
Digoxin 0.5 ng/ml (0.8-2.0) L 07/20/24 11:55
Vital Signs and I&O:
Vital Signs
Temp Pulse Resp BP Pulse Ox
97.5 F 80 18 102/74 91
07/26/24 07:53 07/26/24 08:35 07/26/24 07:32 07/26/24 08:35 07/26/24 07:32
Vital Signs
Temp Pulse Resp BP Pulse Ox
97.5 F 80 18 102/74 91
07/26/24 07:53 07/26/24 08:35 07/26/24 07:32 07/26/24 08:35 07/26/24 07:32
Intake & Output
07/24/24 07/25/24 07/26/24 07/27/24
06:59 06:59 06:59 06:59
Intake Total 765 / 765
Output Total 1650 / 1650 1500 / 1500 750 / 750
Balance -885 / -885 -1500 / -1500 -750 / -750
Physical Exam
Physical Exam
GEN: NAD
HEENT: MMM
LUNGS: 15 L mid flow
CV: Afib on tele
EXT: +1 B/L LE edema
NEURO: Gross non-focal
SKIN: No rash
--- NOTE | 2024-07-26 10:31 | CM ---
Patient with Dx Patient with Dx Acute metabolic encephalopathy, acute on chronic hypoxic respiratory failure, persistent hypoxemia, HF, UTI, AIYANA. O2 15L midflow. Receiving IV Abx, IV Bumex. PT/OT recommend skilled rehab. Per nurse; confused,
forgetful.
Spoke with patient's Jamaal;
he spoke with some family members about their SNF preferences and they decided they prefer a referral to [facility] for rehab, where patient went previously.
expressing that MDs have indicated that his is not doing very well, and he plans on discussing code status with his son, and will let MD know their decision.
states he feels realistic about facing how his is doing, saying 'I understand the [place] of life'.
He plans on coming in today to visit his and see how she's doing.
SNF referral placed for [facility]. Referral currently is for rehab.
CM continuing to follow for d/c needs.
Plan follow up with [facility] for acceptance.
--- NOTE | 2024-07-26 11:07 | W.PN.PUL3 ---
Today's Communication / Plan
-
Continue diuresis
Continue nocturnal and with naps noninvasive mechanical ventilation
Continue nebulizer therapy
Encourage incentive spirometry
Started discussion with patient/ regarding goals of care. Suggest at least obtaining DNR status. She will think about it.
Will follow
Assessment
-
Patient is a 68 year old F with PMHx of COPD, HTN, HLD, anxiety, CHAS intolerant to CPAP, s/p TAVR, Afib on coumadin, pulmonary HTN, chronic hypoxic/hypercapnic respiratory failure on 3L home O2, HFpEF -in the hospital in early May with acute
hypoxemic respiratory failure due to heart failure and responded to diuresis. Back with hypoxemia, increased proBNP and possibly volume overload. Despite diuresis remains on mid flow oxygen. I was consulted on 07/25/2024 for evaluation of
persistent hypoxemia despite diuresis.
Acute on chronic hypoxemic respiratory failure usually on 3 L supplemental oxygen
Acute HFpEF exacerbation.
Chronic pulmonary hypertension: Multiple mechanisms: Cardiac disease/underlying sleep disorder-obstructive sleep apnea/chronic hypercapnic respiratory failure/underlying pulmonary disease.
Intolerant to CPAP/BiPAP
History of medical noncompliance
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
Admission to [facility] 05/2024 with acute/chronic heart failure.
Reported history of COPD/asthma, follows with Russ Smith
Atrial flutter with RVR (new onset)
Mild�moderate pulmonary hypertension with PASP 45�50 assuming an RAP of 15 mmHg
Severe CHAS intolerant to CPAP (per patient) with secondary polycythemia (initial Hb 18.5 on 01/19/2024)
Suspected OHS
Morbid obesity, BMI 48
Hypertension
Hyperlipidemia
DM type II
Aortic stenosis s/p TAVR
Anxiety
History of CVA
Former tobacco smoker (quit 1999)
Plan:
-
Patient has been admitted for the last 5 days for hypoxemia and shortness of breath-ongoing diuresis, her weight is trending lower.
Despite diuresis no significant improvement in hypoxemia.
I was consulted for evaluation of persistent hypoxemia on 07/24/2024.
-
Patient known to our service from prior admission-usually follows up with outside pulmonary for COPD/asthma/obstructive sleep apnea possibly obesity hypoventilation syndrome that is untreated/pulmonary hypertension due to above.
reports that patient has not been using her nebulizers or her vest therapy at home for weeks. She does have history of chronic coughing and phlegm production.
She has a noninvasive mechanical ventilator at home that she is supposed to use at night but she is not consistent. She has a nasal mask.
-
Remains on mid flow oxygen. 10 to 12 L
Not bronchospastic on exam
Comfortably sitting up in chair
Maintain pulse ox above 90%
-
Suspect persistent hypoxemia explained by pulmonary edema given findings on CAT scan of the chest with bilateral effusions and increased interstitial markings.
There is no evidence for pneumonia or interstitial lung disease.
No evidence for significant emphysema.
No evidence for pulmonary embolism patient on anticoagulation as well.
-
COPD/asthma: Not bronchospastic on exam.
Mild rhonchi on exam-good air movement: Not bronchospastic.
No indication for systemic corticosteroids.
Not impressive for significant acute exacerbation of asthma/COPD.
Patient has not been using nebulizer therapy at home for weeks per .
-
Started Pulmicort/DuoNebs. Hold inhalers
Acapella device also will be started. She usually uses vest therapy at home but she does not like it and has not been using for several weeks.
-
Yupelri/AFormoterol/budesonide in the outpatient setting(restart upon discharge)
Patient reports difficulty expectorating: She has percussion therapy at home. vest therapy, patient benefited from this during our last visit- she does not like ti. She states that she has a chronic cough at home-Acapella device
-
Immobility/subsegmental atelectasis also likely contributing.
Patient is mainly sedentary at home
Incentive spirometry encouraged.
Hopefully we can start mobilizing her
-
Does have moderate to severe pulmonary hypertension with RV dysfunction: Suspect due to untreated sleep disorder and chronic hypercapnia.
Patient has chronic hypercapnic respiratory failure: Due to severe obstructive sleep apnea as well as likely obesity hypoventilation syndrome.
Intolerant to noninvasive mechanical ventilation in the past.
This will explain her worsening pulmonary hypertension.
Patient is aware/ is aware
Noninvasive mechanical ventilator was arranged last visit and she received that at home. She has not been consistent with usage per .
-
Noninvasive mechanical ventilation-patient's machine will continue at night and with naps as tolerated.
She has been explained in the past that lack of usage of noninvasive mechanical ventilation will increase risk of readmission, and progressive pulmonary hypertension.
Avoid sedative.
-
Cardiology correspondence reviewed.
Continue IV Bumex
Monitor electrolytes and creatinine-currently tolerating with normal creatinine.
Weight is trending lower
-
If there is no ongoing improvement on hypoxemia despite aggressive diuresis her right heart catheterization will be needed, this has been contemplated in the past.
Follow daily weights-trending lower
-
History of CVA, CT head showing meningioma-neurologically intact
-
DVT prophylaxis-on warfarin, INR now greater than [address] Maharaj updated at the bedside 07/25/2024 and discussed the possibility of addressing CODE STATUS as the patient has recurrent admissions for similar situations. Has not been compliant at home.
She ultimately will follow-up with her private metal furniture panel coverer, Dr. Smith.
Will follow

Diagnostic Data
CXR 01/19/24- Mild pulmonary edema. No definite pleural effusion.
-
CT chest 07/24/2024: Reviewed
Negative for pulmonary embolism.
Enlargement of the main pulmonary artery as well as the right ventricle and right atrium. TAVR in place. Small bilateral pleural effusions, left greater than right. Mild peripheral increase interstitial markings suggestive of interstitial
pulmonary edema.
-
CTA Chest 01/19/2024: No evidence of pulmonary embolism or active pulmonary process. Bilateral hilar lymphadenopathy. It is difficult to evaluate for hilar lymphadenopathy on the previous CT from 09/09/2022 given the absence of intravenous contrast on
this exam. Mediastinal lymphadenopathy is unchanged. Dilated pulmonary arterial system which can be seen in the setting of pulmonary arterial hypertension.
CT Head 03/03/24- 1). There are no acute intracranial abnormalities
2). Old 6.5 cm right occipital infarct
3). 2.8 cm meningioma over the anterolateral right parietal convexity
Echocardiogram 07/21/2024: Reviewed
Normal LVEF.
Mild LVH.
Flattened septum in systole and diastole consistent with RV pressure and volume overload.
Left ventricular ejection fraction 70 to 75%.
Severely dilated and hypokinetic right ventricle.
Moderately dilated left atrium
Severely dilated right atrium
Mitral stenosis-mild.
Mild MR.
Moderate TR. Estimated pulmonary pressure 73 mmHg.
Compared to 07/10/2024-mitral gradient is increased 12/5 from 01/05. Aortic gradient is increased 12/6 from /6. No other significant changes
ECHO 01/19/24- Hyperdynamic left ventricular systolic function. LV ejection fraction is 70- 75%. Mild mitral stenosis. s/p TAVR 29 mm Medtronic Evolut. Peak/mean gradients across the aortic valve are 8/5 mmHg. No aortic regurgitation. Enlarged right
ventricular size. Reduced right ventricular systolic function. Septal flattening in systole and diastole consistent with RV pressure and volume overload. Mild tricuspid regurgitation. Moderately elevated PASP. Estimated pulmonary artery pressure of
45-50 mmHg assuming a right atrial pressure of 15 mmHg. Compared to 05/01/22: RV dysfunction is now present. PASP was unable to be measured on prior study.
Reports and relevant images were personally reviewed.
Subjective Data
-
Date of Service:
Date of Service: July 26, 2024
Chief Complaint: Pulmonary Follow Up (Acute on chronic hypoxemic and hypercapnic respiratory failure)
Subjective:
Patient offers no new complaints
She feels fatigued
Denies increased cough or phlegm production
Review of Systems
Cardiopulmonary: Dyspnea (none at rest), Dyspnea on Exertion, Cough (n) and Wheezing (n)
GI: Abdominal Pain (n) and Nausea (n)
Objective Data
Data Reviewed
Vital Signs / I&O / Oxygen:
Vital Signs
Temp Pulse Resp BP Pulse Ox
97.5 F 80 18 102/74 91
07/26/24 07:53 07/26/24 08:35 07/26/24 07:32 07/26/24 08:35 07/26/24 07:32
Intake and Output
07/25/24 07/26/24 07/27/24
06:59 06:59 06:59
Output Total 1500 / 1500 750 / 750
Balance -1500 / -1500 -750 / -750
SaO2 91
Nasal Cannula flow liters per 12
minute
Physical Exam
General: Comfortable
HEENT: Normocephalic
Cardiovascular: S1-S2
Respiratory: Non-Labored Respirations
GI: Soft and Non Distended
Neurology: Awake, AO x 3 and No Motor Deficits
Skin: Warm and Other (Lower extremity with venous stasis changes)
Labs/Micro/Reports
Lab Data
07/26/24 03:31
07/26/24 03:31
Laboratory Results
07/26/24
03:31
PT 26.5 H
INR 2.44
Microbiology
07/20/24 20:02 Urine Urine Culture - Final
Escherichia coli
[2024-07-26] MEDS: STERILE WATER FOR INJECTION 10 ML IV (11:24)
[2024-07-26] MEDS: ROCEPHIN 1000 MG IV (11:24)
[2024-07-26] MEDS: TYLENOL 650 MG PO (11:57)
[2024-07-26 12:38] LABS: Glucose - Point of Care 174 mg/dl (70-99)
[2024-07-26] MEDS: NOVOLOG FLEXPEN-LOW RESISTANCE 1 UNITS SC (12:47)
--- NOTE | 2024-07-26 13:39 | W.PN.HOSP.TC ---
Today's Communication/Plan
-
Monitor vital signs see plan
Discussed compliance with noninvasive ventilator
Continue with diuresis
Nebs
Wean oxygen as tolerated
Discussed with spouse
cw abx
Assessment / Plan
Assessment / Plan
Gen-AAOx3, NAD
HEENT-NC, AT, anicteric, clear oral mm
Neck-supple
CV-reg, no M, +S1/S2
Lungs-clear B/L
Abd-soft, NT, ND
Ext-bilateral lower extremity edema, dusky and purple-colored lower extremities including toes
Skin-warm and dry
Neuro-grossly non-focal
Psych-calm, cooperative
Acute metabolic encephalopathy -likely due to acute on chronic hypoxic respiratory failure due to acute on chronic heart failure.
Suspect encephalopathy can be secondary to urinary tract infection, started ceftriaxone. Patient does have increased urgency, dysuria
Chronic hypoxemic respiratory failure on 3 L baseline
cw duoneb; cw bumex
abg noted
-BNP of 1270 from 2400 previously
-Chest x-ray shows prominence of bronchovascular markings possibly chronic versus mild vascular congestion
-Patient on 10 L oxygen currently; wean oxygen as tolerated
-cont diuresis w bumex
CT chest with interstitial edema; no PE
Pulmonary consulted, patient has a dietetic assistant outpatient and has been on nocturnal noninvasive vent. Patient now using her home non invasive vent. Discussed importance of compliance.
Possibility of acute atelectasis as well
Acute on chronic heart failure with preserved EF exacerbation -continue IV Bumex.
Echocardiogram shows LVEF 70 to 75%, severe RV dilation and hypokinesis, moderately dilated LA, severely dilated RA, moderate TR, estimated PA pressure of 73 mmHg.
Suspect severe pulmonary hypertension related to obesity, CHAS, COPD, etc. Pulmonary hypertension related severe right heart failure.
Ecoli UTI
cw abx
AIYANA likely cardiorenal. Creatinine improving
Recent syncopal episode
-Patient with child monitor prescribed by [facility]
Bilateral lower extremity lymphedema with traumatic injuries
-Legs do not appear infected
-Outpatient follow-up with lymphedema clinic
Anxiety/depression
-Outpatient psychiatry follow-up
Persistent atrial fibrillation
-Continue Coumadin, INR daily
-Continue metoprolol
-Continue digoxin
Aortic stenosis status post TAVR
COPD without exacerbation
-Continue Brovana, Yupelri
monitor
Obstructive sleep apnea
Pulmonary hypertension
Moderate to severe tricuspid regurgitation
Essential hypertension
DM2 without hyperglycemia -hemoglobin A1c 7.4%.
-Hold metformin
-Continue Jardiance
Hyperlipidemia
-Continue statin
Anxiety
-Continue temazepam, duloxetine
Raynaud's
Meningioma
Morbid obesity due to excess calories -weight loss encouraged.
Hyperlipidemia
History of right posterior CVA
History of right parietal meningioma
-Following with Dr. Love
Presumed restless legs
-Continue ropinirole, gabapentin
Stage 3 right buttock pressure injury, POA.
Full code
Discussed medical complexity and goals of care.
Spouse updated
I spent a total of 52 minutes with the patient or on the floor. More than 50% of this time involved counseling and coordination of care.
Anticipated Discharge: > 48 hours
Subjective/Interval History
-
Date of Service: July 26, 2024
denies pain
Objective Data
-
Labs:
Laboratory Results
07/26/24
03:31
WBC 7.7
Hgb 16.5 H
Hct 52.0 H
Plt Count 185
PT 26.5 H
INR 2.44
Sodium 142
Potassium 3.8
Chloride 100
Carbon Dioxide 32 H
BUN 35 H
Creatinine 0.9
Glucose 134 H
Calcium 9.1
Total Bilirubin 2.9 H
AST 40 H
ALT 30
Alkaline Phosphatase 284 H
Vital Signs:
Vital Signs
Temp Pulse Resp BP Pulse Ox
98.0 F 95 18 99/82 92
07/26/24 11:07 07/26/24 11:57 07/26/24 11:20 07/26/24 11:57 07/26/24 11:20
I&O
07/25/24 07/26/24 07/27/24
06:59 06:59 06:59
Output Total 1500 / 1500 750 / 750
Balance -1500 / -1500 -750 / -750
--- NOTE | 2024-07-26 14:44 | RESPNOTE ---
late entry from around ~1220:
helped transition patient from chair to bed x3 assist. once settled in bed, placed patient on own CPAP unit with 12L O2 bled-in. SpO2 92%.
[2024-07-26] MEDS: COUMADIN 2 MG PO (17:09)
[2024-07-26 17:44] LABS: Glucose - Point of Care 108 mg/dl (70-99)
[2024-07-26] MEDS: TOPROL XL 50 MG PO (20:37)
[2024-07-26] MEDS: RESTORIL 15 MG PO (20:37)
[2024-07-26] MEDS: REQUIP 0.25 MG PO (20:37)
[2024-07-26 22:26] LABS: Glucose - Point of Care 174 mg/dl (70-99)
[2024-07-27] VITALS (17 sets, daily range): BP systolic 91–124; BP diastolic 36–102; PULSE 96; O2SAT 89–92; BMI 48.6
[2024-07-27 05:25] LABS: Hematocrit 49.1 % (37.0-47.0); Hemoglobin 15.9 g/dL (12.0-16.0); Mean Corp Hgb Conc. 32.4 g/dL (33.0-37.0); Mean Corpuscular Hgb 34.6 pg (27.0-31.0); Mean Corpuscular Volume 106.7 fL (81.0-99.0); Mean Platelet Volume 11.3 fL (7.4-10.4); Platelet Count 183 10^3/uL (130-400); Red Cell Dist. Width 17.4 % (11.5-14.5); White Blood Cell Count 6.5 10^3/uL (4.8-10.8)
[2024-07-27 05:35] LABS: INR 2.77; PT 29.6 Sec (11.4-14.6)
--- NOTE | 2024-07-27 05:40 | PTCARENOTE ---
Received pt at change of shift. Pt AAOx3; confused conversation at times. Able to wean O2 to 10L on bipap and through MF NC; pulse ox 94%. Difficulty getting pulse ox but able to spot check as needed. Resting in bed with call avitia in reach.
[2024-07-27 05:50] LABS: ALT (SGPT) 29 U/L (0-35); AST (SGOT) 40 U/L (14-36); Albumin 3.4 g/dl (3.5-5.0); Alkaline Phosphatase 278 U/L (38-126); Blood Urea Nitrogen 32 mg/dl (7-17); Calcium 9.1 mg/dl (8.4-10.2); Carbon Dioxide 36 mmol/L (22-30); Chloride 101 mmol/L (98-107); Estimated Creatinine Clearance 75 ml/min; Glucose 140 mg/dl (70-99); Potassium 3.8 mmol/L (3.5-5.1); Sodium 144 mmol/L (135-145); Total Bilirubin 2.4 mg/dl (0.2-1.3); Total Protein 7.1 g/dl (6.3-8.2); eGFR > 60.00
[2024-07-27] MEDS: PULMICORT 0.5 MG INH ×2 (07:29→20:15)
[2024-07-27] MEDS: DUONEB 3 ML INH ×4 (07:29→20:15)
[2024-07-27 08:02] LABS: Glucose - Point of Care 99 mg/dl (70-99)
--- NOTE | 2024-07-27 08:20 | PTCARENOTE ---
Patient received from caustic cresylate shift superintendent. Patient is resting comfortably in bed. AAO, no noticable confusion this AM, VSS. No events noted overnight. No complaints of pain at this time. Patient wore BiPAP for the majority of the night. Will attempt
to get OOB to chair. Patient currently on 10L Midflow N/C, continue to wean as tolerated. Patient remains with BM yesterday. Continuing ABX. . No further testing scheduled at this time. Call avitia in reach.
[2024-07-27] MEDS: NOVOLOG FLEXPEN-LOW RESISTANCE SC (09:00)
--- NOTE | 2024-07-27 09:01 | PTCARENOTE ---
Due to patients history of Raynaud's, obtaining a decent accurate O2 sat is tough at times. Going to intermittently spot check with handheld device, recent was 94% on 10L Midflow N/C.
[2024-07-27] MEDS: BUMEX 3 MG IV ×2 (09:25→15:52)
[2024-07-27] MEDS: CYMBALTA DELAYED RELEASE 60 MG PO (09:26)
[2024-07-27] MEDS: DESENEX/MITRAZOL/ZEASORB 1 APPLIC TOPICAL ×2 (09:27→21:01)
[2024-07-27] MEDS: FARXIGA 10 MG PO (09:28)
[2024-07-27] MEDS: HYDROPHOR 1 APPLIC TOPICAL (09:28)
[2024-07-27] MEDS: KCL 20 MEQ PO (09:29)
[2024-07-27] MEDS: LANOXIN 125 MCG PO (09:29)
[2024-07-27] MEDS: LIPITOR 10 MG PO (09:31)
[2024-07-27] MEDS: NEURONTIN 300 MG PO ×3 (09:32→20:59)
[2024-07-27] MEDS: OSCAL 500 + D 500 MG PO (09:32)
[2024-07-27] MEDS: THERAGRAN 1 TABLET PO (09:33)
[2024-07-27] MEDS: TOPROL XL 50 MG PO ×2 (09:34→20:59)
[2024-07-27] MEDS: VITAMIN B-12 2500 MCG PO (09:34)
[2024-07-27] MEDS: ROCEPHIN 1000 MG IV (09:35)
[2024-07-27] MEDS: STERILE WATER FOR INJECTION 10 ML IV (09:35)
--- NOTE | 2024-07-27 10:49 | W.PN.PUL3 ---
Today's Communication / Plan
-
From the pulmonary perspective:
Continue nebulizer therapy
Encourage incentive spirometry
Out of bed as able
Continue IV diuresis
Encouraged to use her noninvasive mechanical ventilator at night and with naps.
Continue to wean down FiO2-currently 10 L per
Will follow
Assessment
-
Patient is a 68 year old F with PMHx of COPD, HTN, HLD, anxiety, CHAS intolerant to CPAP, s/p TAVR, Afib on coumadin, pulmonary HTN, chronic hypoxic/hypercapnic respiratory failure on 3L home O2, HFpEF -in the hospital in early May with acute
hypoxemic respiratory failure due to heart failure and responded to diuresis. Back with hypoxemia, increased proBNP and possibly volume overload. Despite diuresis remains on mid flow oxygen. I was consulted on 07/25/2024 for evaluation of
persistent hypoxemia despite diuresis.
Acute on chronic hypoxemic respiratory failure usually on 3 L supplemental oxygen
Acute HFpEF exacerbation.
Chronic pulmonary hypertension: Multiple mechanisms: Cardiac disease/underlying sleep disorder-obstructive sleep apnea/chronic hypercapnic respiratory failure/underlying pulmonary disease.
Intolerant to CPAP/BiPAP
History of medical noncompliance
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
Admission to [facility] 05/2024 with acute/chronic heart failure.
Reported history of COPD/asthma, follows with Russ Smith
Atrial flutter with RVR (new onset)
Mild�moderate pulmonary hypertension with PASP 45�50 assuming an RAP of 15 mmHg
Severe CHAS intolerant to CPAP (per patient) with secondary polycythemia (initial Hb 18.5 on 01/19/2024)
Suspected OHS
Morbid obesity, BMI 48
Hypertension
Hyperlipidemia
DM type II
Aortic stenosis s/p TAVR
Anxiety
History of CVA
Former tobacco smoker (quit 1999)
Plan:
-
Remains hypoxemic-10 L via mid flow. Likely volume overload, subsegmental atelectasis, obesity. Immobility.
I was consulted for evaluation of persistent hypoxemia on 07/24/2024.
-
Patient known to our service from prior admission-usually follows up with outside pulmonary for COPD/asthma/obstructive sleep apnea possibly obesity hypoventilation syndrome that is untreated/pulmonary hypertension due to above.
reports that patient has not been using her nebulizers or her vest therapy at home for weeks. She does have history of chronic coughing and phlegm production.
She has a noninvasive mechanical ventilator at home that she is supposed to use at night but she is not consistent. She has a nasal mask.
-
Remains on mid flow oxygen. 10 to 12 L-continue to wean down as able.
Not bronchospastic on exam
Comfortably sitting up in chair-encourage increased activity.
Maintain pulse ox above 90%
-
Suspect persistent hypoxemia explained by pulmonary edema given findings on CAT scan of the chest with bilateral effusions and increased interstitial markings.
There is no evidence for pneumonia or interstitial lung disease.
No evidence for significant emphysema.
No evidence for pulmonary embolism patient on anticoagulation as well.
-
COPD/asthma: Not bronchospastic on exam.
Mild rhonchi on exam-good air movement: Not bronchospastic.
No indication for systemic corticosteroids.
Not impressive for significant acute exacerbation of asthma/COPD.
Patient has not been using nebulizer therapy at home for weeks per .
-
Continue Pulmicort/DuoNebs. Hold inhalers
Acapella device also will be started. She usually uses vest therapy at home but she does not like it and has not been using for several weeks.
-
Yupelri/AFormoterol/budesonide in the outpatient setting(restart upon discharge)
Patient reports difficulty expectorating: She has percussion therapy at home. vest therapy, patient benefited from this during our last visit- she does not like ti. She states that she has a chronic cough at home-Acapella device
-
Immobility/subsegmental atelectasis also likely contributing.
Patient is mainly sedentary at home
Incentive spirometry encouraged.
Hopefully we can start mobilizing her
-
Does have moderate to severe pulmonary hypertension with RV dysfunction: Suspect due to untreated sleep disorder and chronic hypercapnia.
Patient has chronic hypercapnic respiratory failure: Due to severe obstructive sleep apnea as well as likely obesity hypoventilation syndrome.
Intolerant to noninvasive mechanical ventilation in the past.
This will explain her worsening pulmonary hypertension.
Patient is aware/ is aware
Noninvasive mechanical ventilator was arranged last visit and she received that at home. She has not been consistent with usage per .
-
Noninvasive mechanical ventilation-patient's machine will continue at night and with naps as tolerated.
She has been explained in the past that lack of usage of noninvasive mechanical ventilation will increase risk of readmission, and progressive pulmonary hypertension.
Avoid sedative.
-
Cardiology correspondence reviewed.
Continue IV Bumex
Monitor electrolytes and creatinine-currently tolerating with normal creatinine.
Weight is trending lower-she is down about 3 kg since admission.
Creatinine holding.
-
If there is no ongoing improvement on hypoxemia despite aggressive diuresis her right heart catheterization will be needed, this has been contemplated in the past.
Follow daily weights-trending lower
-
History of CVA, CT head showing meningioma-neurologically intact
-
DVT prophylaxis-on warfarin, INR now greater than [address] Maharaj updated at the bedside 07/25/2024 and discussed the possibility of addressing CODE STATUS as the patient has recurrent admissions for similar situations. Has not been compliant at home.
She ultimately will follow-up with her private tree care foreman, Dr. Smith.
Will follow

Diagnostic Data
CXR 01/19/24- Mild pulmonary edema. No definite pleural effusion.
-
CT chest 07/24/2024: Reviewed
Negative for pulmonary embolism.
Enlargement of the main pulmonary artery as well as the right ventricle and right atrium. TAVR in place. Small bilateral pleural effusions, left greater than right. Mild peripheral increase interstitial markings suggestive of interstitial
pulmonary edema.
-
CTA Chest 01/19/2024: No evidence of pulmonary embolism or active pulmonary process. Bilateral hilar lymphadenopathy. It is difficult to evaluate for hilar lymphadenopathy on the previous CT from 09/09/2022 given the absence of intravenous contrast on
this exam. Mediastinal lymphadenopathy is unchanged. Dilated pulmonary arterial system which can be seen in the setting of pulmonary arterial hypertension.
CT Head 03/03/24- 1). There are no acute intracranial abnormalities
2). Old 6.5 cm right occipital infarct
3). 2.8 cm meningioma over the anterolateral right parietal convexity
Echocardiogram 07/21/2024: Reviewed
Normal LVEF.
Mild LVH.
Flattened septum in systole and diastole consistent with RV pressure and volume overload.
Left ventricular ejection fraction 70 to 75%.
Severely dilated and hypokinetic right ventricle.
Moderately dilated left atrium
Severely dilated right atrium
Mitral stenosis-mild.
Mild MR.
Moderate TR. Estimated pulmonary pressure 73 mmHg.
Compared to 07/10/2024-mitral gradient is increased 12/5 from 9/5. Aortic gradient is increased 12/6 from 6/6. No other significant changes
ECHO 01/19/24- Hyperdynamic left ventricular systolic function. LV ejection fraction is 70- 75%. Mild mitral stenosis. s/p TAVR 29 mm Medtronic Evolut. Peak/mean gradients across the aortic valve are 8/5 mmHg. No aortic regurgitation. Enlarged right
ventricular size. Reduced right ventricular systolic function. Septal flattening in systole and diastole consistent with RV pressure and volume overload. Mild tricuspid regurgitation. Moderately elevated PASP. Estimated pulmonary artery pressure of
45-50 mmHg assuming a right atrial pressure of 15 mmHg. Compared to 05/01/22: RV dysfunction is now present. PASP was unable to be measured on prior study.
Reports and relevant images were personally reviewed.
Subjective Data
-
Date of Service:
Date of Service: July 27, 2024
Chief Complaint: Pulmonary Follow Up (Acute on chronic hypoxemic and hypercapnic respiratory failure)
Subjective:
No new complaints
Remains on supplemental oxygen
Mostly in bed and chair bound
Review of Systems
Cardiopulmonary: Dyspnea and Dyspnea on Exertion
Objective Data
Data Reviewed
Vital Signs / I&O / Oxygen:
Vital Signs
Temp Pulse Resp BP Pulse Ox
97.6 F 89 18 110/90 94
07/27/24 03:00 07/27/24 09:34 07/27/24 07:33 07/27/24 09:34 07/27/24 10:30
Intake and Output
07/26/24 07/27/24 07/28/24
06:59 06:59 06:59
Output Total 750 / 750 1675 / 1675
Balance -750 / -750 -1675 / -1675
SaO2 94
Nasal Cannula flow liters per 12
minute
Physical Exam
General: Comfortable
HEENT: Normocephalic
Cardiovascular: S1-S2
Respiratory: Non-Labored Respirations
GI: Soft and Non Distended
Neurology: Awake, AO x 3 and No Motor Deficits
Skin: Warm and Other (Lower extremity with venous stasis changes)
Labs/Micro/Reports
Lab Data
07/27/24 04:55
07/27/24 04:55
Laboratory Results
07/27/24
04:55
PT 29.6 H
INR 2.77
[2024-07-27] MEDS: NOVOLOG FLEXPEN-LOW RESISTANCE 1 UNITS SC ×2 (12:29→16:53)
[2024-07-27] MEDS: TYLENOL 650 MG PO (12:29)
[2024-07-27 12:32] LABS: Glucose - Point of Care 180 mg/dl (70-99)
--- NOTE | 2024-07-27 13:28 | W.PN.HOSP.TC ---
Today's Communication/Plan
-
Monitor vital signs see plan
Continue with IV diuresis per cardiology
Wean oxygen as tolerated
Encourage compliance with noninvasive vent at night and when sleeping
cw abx
cw nebs
Assessment / Plan
Assessment / Plan
Gen-AAOx3, NAD
HEENT-NC, AT, anicteric, clear oral mm
Neck-supple
CV-reg, no M, +S1/S2
Lungs-clear B/L
Abd-soft, NT, ND
Ext-bilateral lower extremity edema, dusky and purple-colored lower extremities including toes
Skin-warm and dry
Neuro-grossly non-focal
Psych-calm, cooperative
Acute metabolic encephalopathy -likely due to acute on chronic hypoxic respiratory failure due to acute on chronic heart failure.
Suspect encephalopathy can be secondary to urinary tract infection, started ceftriaxone. Patient does have increased urgency, dysuria
Chronic hypoxemic respiratory failure on 3 L baseline
cw duoneb; cw bumex
abg noted
-BNP of 1270 from 2400 previously
-Chest x-ray shows prominence of bronchovascular markings possibly chronic versus mild vascular congestion
-Patient on 10 L oxygen currently; wean oxygen as tolerated
-cont diuresis w bumex
CT chest with interstitial edema; no PE
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 Patient now using her home non invasive vent. Discussed importance of compliance.
Possibility of acute atelectasis as well
Acute on chronic heart failure with preserved EF exacerbation -continue IV Bumex.
Echocardiogram shows LVEF 70 to 75%, severe RV dilation and hypokinesis, moderately dilated LA, severely dilated RA, moderate TR, estimated PA pressure of 73 mmHg.
Suspect severe pulmonary hypertension related to obesity, CHAS, COPD, etc. Pulmonary hypertension related severe right heart failure.
Ecoli UTI
cw abx
AIYANA likely cardiorenal. Creatinine improving
Recent syncopal episode
-Patient with cardiac nurse practitioner prescribed by [facility] Cardiology
Bilateral lower extremity lymphedema with traumatic injuries
-Legs do not appear infected
-Outpatient follow-up with lymphedema clinic
Anxiety/depression
-Outpatient psychiatry follow-up
Persistent atrial fibrillation
-Continue Coumadin, INR daily
-Continue metoprolol
-Continue digoxin
Aortic stenosis status post TAVR
COPD without exacerbation
-Continue Brovana Yupelri
monitor
Obstructive sleep apnea
Pulmonary hypertension
Moderate to severe tricuspid regurgitation
Essential hypertension
DM2 without hyperglycemia -hemoglobin A1c 7.4%.
-Hold metformin
-Continue Jardiance
Hyperlipidemia
-Continue statin
Anxiety
-Continue temazepam, duloxetine
Raynaud's
Meningioma
Morbid obesity due to excess calories -weight loss encouraged.
Hyperlipidemia
History of right posterior CVA
History of right parietal meningioma
-Following with Dr. Love
Presumed restless legs
-Continue ropinirole, gabapentin
Stage 3 right buttock pressure injury, POA.
Full code
Discussed medical complexity and goals of care. Patient is aware that if she is not compliant with noninvasive vent then not much to offer
Spouse updated
I spent a total of 51 minutes with the patient or on the floor. More than 50% of this time involved counseling and coordination of care.
Anticipated Discharge: > 48 hours
Subjective/Interval History
-
Date of Service: July 27, 2024
Continues to require oxygen
Objective Data
-
Labs:
Laboratory Results
07/27/24
04:55
WBC 6.5
Hgb 15.9
Hct 49.1 H
Plt Count 183
PT 29.6 H
INR 2.77
Sodium 144
Potassium 3.8
Chloride 101
Carbon Dioxide 36 H
BUN 32 H
Creatinine 0.9
Glucose 140 H
Calcium 9.1
Total Bilirubin 2.4 H
AST 40 H
ALT 29
Alkaline Phosphatase 278 H
Vital Signs:
Vital Signs
Temp Pulse Resp BP Pulse Ox
97.4 F 93 18 110/90 90
07/27/24 07:58 07/27/24 11:21 07/27/24 11:21 07/27/24 09:34 07/27/24 11:21
I&O
07/26/24 07/27/24 07/28/24
06:59 06:59 06:59
Output Total 750 / 750 1675 / 1675
Balance -750 / -750 -1675 / -1675
--- NOTE | 2024-07-27 14:54 | W.PN.CARDCBS ---
Addendum entered and electronically signed by Froylan Mercado DO 07/27/24 18:32:
I saw and examined the patient.
[facility] [employer]'s note was reviewed and I agree with the note.
Comment:
Plan:
Wt coming down slightly with increased Bumex 3 mg IV BID
Metolazone added to this afternoon's Bumex dose.
Continue to monitor I's and O's Daily weights and creatinine.
Known persistent atrial fibrillation, heart rate control with Toprol XL and digoxin. Digoxin level has been stable.
Continue Coumadin.
Cont GDMT
ACEI/ARB/Arni/aldosterone antagonist prior to admission stopped due to hypotension.
He has preserved with TAVR mean gradient 6 mmHg and no AI by echo July 21, 2024
Discussed with son at bedside.
Original Note:
Today's Communication / Plan
-
Metolazone 2.5 mg x 1 with this afternoon's dose of Bumex 3 mg IV BID if metolazone is effective then we will continue to use. If no appreciable diuresis and consider alternative loop diuretic
Impression / Plan
-
Primary Equity Holder: Dr. CHAVA Alejandro
Assessment:
Admitted with confusion/metabolic encephalopathy 07/20/24
Acute on chronic hypoxemic respiratory failure
Acute on chronic HFpEF
AIYANA
Admission to [facility] for syncope vs fall 07/10-07/11/24
LE wounds
Persistent AFib
NSVT, 07/21/24
Chronic Coumadin therapy, managed by cardiology
Essential HTN
DM2
h/o TAVR 2021
Severe pulm HTN
COPD, chronically on 3L NC
h/o R post CVA
h/o R parietal meningioma
CHAS: intolerant of CPAP
Hyperlipidemia
Morbid obesity
Chronic lymphedema
History of PE
Uncharacterized liver lesion
Subclinical hyperthyroidism
History of gastric bypass
Depression/anxiety/insomnia with history of serotonin syndrome admission 03/2024
Polypharmacy
History of falls
Echo 07/10/2024: EF 70 to 75%, evidence of RV pressure and volume overload, mild concentric LVH, MAC, mild MS with peak/mean gradients 9/5 mmHg, trace MR, number 29 mm Medtronic evolute TAVR with peak/mean gradient 6/3 mmHg, moderate to severe TR,
PAP 79 mmHg, severely dilated right heart, no significant change compared to prior
Echo 07/21/24:EF 70-75%, dilated RV with RV hypokinesis, mean mitral gradient 5, mild MR, status post Evolut transcatheter aortic valve with mean gradient of 6 and no AI, moderate TR with PA pressure 73
Plan:
-Pulmonology note reviewed and they suspect that ongoing hypoxemia is related to ongoing CHF. They do not suspect PNA, ILD or emphysema. Although they do note that the patient's reported that the patient was not using nebulizers or her
vest therapy at home for weeks prior to admission, she is also inconsistent with noninvasive mechanical ventilator at home that she is supposed to use at .
-No appreciable diuresis despite extra dose of Bumex 3 mg IV on 07/26/2024, essentially patient was given Bumex 3 mg IV TID on 07/26/2024. Will add metolazone 2.5 mg x 1 prior to Bumex 3 mg IV BID PM dose on 07/27/2024, ordered by me.
-Cre has improved with attempts at diuresis
-EF 70-75% by echo 07/21/24 and TAVR mean gradient 6 mmHg without any AI
-Cont Toprol XL 50 mg BID. Dose was briefly increased this admission for NSVT, but then developed hypotension.
-Outpatient dose of Jardiance 10 mg daily was transition to Farxiga 10 mg daily due to formulary changes at , but should resume Jardiance upon D/C to home
-Patient was not taking VIVEK/ARB/ARNI/aldosterone antagonist prior to admission due to hypotension. Previous episode of hypotension and syncope with spironolactone on 07/12/2024
-Episode of NSVT 07/21/24, no further VT.
-Patient with known persistent A-fib. HR controlled with Toprol-XL and chronic outpatient dose of digoxin 125 mcg SuTuThSa. Digoxin level 0.5 on 07/20/2024
-Patient is chronically on warfarin with INR goal of 2-3 as managed by cardiology. Patient uses a home monitor. Outpatient dose of warfarin 2 mg daily is ordered. INR 2.77 on 07/27/24
Progress Note - Equity Holder
Subjective
Date of Service: July 27, 2024
No CP
Objective
Labs:
07/27/24 04:55
07/27/24 04:55
Labs
Hgb 15.9 g/dL (12.0-16.0) 07/27/24 04:55
Hct 49.1 % (37.0-47.0) H 07/27/24 04:55
Plt Count 183 10^3/uL (130-400) 07/27/24 04:55
PT 29.6 Sec (11.4-14.6) H 07/27/24 04:55
INR 2.77 07/27/24 04:55
Sodium 144 mmol/L (135-145) 07/27/24 04:55
Potassium 3.8 mmol/L (3.5-5.1) 07/27/24 04:55
BUN 32 mg/dl (7-17) H 07/27/24 04:55
Creatinine 0.9 mg/dL (0.6-1.0) 07/27/24 04:55
Glucose 140 mg/dl (70-99) H 07/27/24 04:55
Digoxin 0.5 ng/ml (0.8-2.0) L 07/20/24 11:55
Vital Signs and I&O:
Vital Signs
Temp Pulse Resp BP Pulse Ox
97.4 F 93 18 110/90 90
07/27/24 07:58 07/27/24 11:21 07/27/24 11:21 07/27/24 09:34 07/27/24 11:21
Vital Signs
Temp Pulse Resp BP Pulse Ox
97.4 F 93 18 110/90 90
07/27/24 07:58 07/27/24 11:21 07/27/24 11:21 07/27/24 09:34 07/27/24 11:21
Intake & Output
07/25/24 07/26/24 07/27/24 07/28/24
06:59 06:59 06:59 06:59
Output Total 1500 / 1500 750 / 750 1675 / 1675
Balance -1500 / -1500 -750 / -750 -1675 / -1675
Physical Exam
Physical Exam
GEN: NAD
HEENT: MMM
LUNGS: 10 L mid flow
CV: Afib on tele
EXT: +1 B/L LE edema
NEURO: Gross non-focal
SKIN: No rash
[2024-07-27] MEDS: ZAROXOLYN 2.5 MG PO (15:53)
[2024-07-27 17:00] LABS: Glucose - Point of Care 174 mg/dl (70-99)
[2024-07-27] MEDS: REQUIP 0.25 MG PO (20:59)
[2024-07-27] MEDS: RESTORIL 15 MG PO (21:01)
[2024-07-27] MEDS: COUMADIN 2 MG PO (22:40)
[2024-07-28] VITALS (13 sets, daily range): BP systolic 97–153; BP diastolic 63–113; BMI 48.1
--- NOTE | 2024-07-28 00:05 | PTCARENOTE ---
Pt took off her bipap and her SaO2 dropped into 70s. Pt placed back on MFNC, 15L until fully recovered. Pt weaned to 12L. SaO2 93% on 12L MF. Call avitia and belongings within reach. Care ongoing.
[2024-07-28 05:47] LABS: Hematocrit 50.8 % (37.0-47.0); Hemoglobin 17.2 g/dL (12.0-16.0); Mean Corp Hgb Conc. 33.9 g/dL (33.0-37.0); Mean Corpuscular Hgb 34.8 pg (27.0-31.0); Mean Corpuscular Volume 102.8 fL (81.0-99.0); Mean Platelet Volume 11.8 fL (7.4-10.4); Platelet Count 186 10^3/uL (130-400); Red Blood Cell Count 4.94 10^6/uL (4.20-5.40); Red Cell Dist. Width 17.2 % (11.5-14.5); White Blood Cell Count 6.3 10^3/uL (4.8-10.8)
[2024-07-28 06:11] LABS: ALT (SGPT) 29 U/L (0-35); AST (SGOT) 44 U/L (14-36); Albumin 3.6 g/dl (3.5-5.0); Alkaline Phosphatase 312 U/L (38-126); Blood Urea Nitrogen 31 mg/dl (7-17); Calcium 9.3 mg/dl (8.4-10.2); Carbon Dioxide 35 mmol/L (22-30); Chloride 96 mmol/L (98-107); Estimated Creatinine Clearance 95 ml/min; Glucose 119 mg/dl (70-99); Potassium 3.3 mmol/L (3.5-5.1); Sodium 142 mmol/L (135-145); Total Bilirubin 2.7 mg/dl (0.2-1.3); Total Protein 7.6 g/dl (6.3-8.2); eGFR > 60.00
[2024-07-28 06:40] LABS: INR 2.64; PT 28.6 Sec (11.4-14.6)
[2024-07-28] MEDS: DUONEB 3 ML INH ×4 (07:25→20:30)
[2024-07-28] MEDS: PULMICORT 0.5 MG INH ×2 (07:25→20:30)
[2024-07-28 07:42] LABS: Glucose - Point of Care 101 mg/dl (70-99)
[2024-07-28] MEDS: NOVOLOG FLEXPEN-LOW RESISTANCE SC (08:19)
[2024-07-28] MEDS: CYMBALTA DELAYED RELEASE 60 MG PO (08:55)
[2024-07-28] MEDS: NEURONTIN 300 MG PO ×3 (08:55→20:59)
[2024-07-28] MEDS: KCL 20 MEQ PO (08:56)
[2024-07-28] MEDS: TOPROL XL 50 MG PO ×2 (08:56→21:00)
[2024-07-28] MEDS: FARXIGA 10 MG PO (08:56)
[2024-07-28] MEDS: THERAGRAN 1 TABLET PO (08:56)
[2024-07-28] MEDS: LIPITOR 10 MG PO (08:56)
[2024-07-28] MEDS: OSCAL 500 + D 500 MG PO (08:56)
[2024-07-28] MEDS: BUMEX 3 MG IV ×2 (08:58→15:31)
[2024-07-28] MEDS: VITAMIN B-12 2500 MCG PO (08:58)
[2024-07-28] MEDS: HYDROPHOR 1 APPLIC TOPICAL (08:59)
[2024-07-28] MEDS: DESENEX/MITRAZOL/ZEASORB 1 APPLIC TOPICAL ×2 (08:59→20:58)
--- NOTE | 2024-07-28 10:15 | W.PN.PUL3 ---
Today's Communication / Plan
-
Continue IV diuresis
Continue nebulizer therapy
Incentive spirometer
Noninvasive mechanical ventilator as able-she has her home machine.
Increase activity as tolerated
Wean FiO2 as able currently on 6 L, improving.
Assessment
-
Patient is a 68 year old F with PMHx of COPD, HTN, HLD, anxiety, CHAS intolerant to CPAP, s/p TAVR, Afib on coumadin, pulmonary HTN, chronic hypoxic/hypercapnic respiratory failure on 3L home O2, HFpEF -in the hospital in early May with acute
hypoxemic respiratory failure due to heart failure and responded to diuresis. Back with hypoxemia, increased proBNP and possibly volume overload. Despite diuresis remains on mid flow oxygen. I was consulted on 07/25/2024 for evaluation of
persistent hypoxemia despite diuresis.
Acute on chronic hypoxemic respiratory failure usually on 3 L supplemental oxygen
Acute HFpEF exacerbation.
Chronic pulmonary hypertension: Multiple mechanisms: Cardiac disease/underlying sleep disorder-obstructive sleep apnea/chronic hypercapnic respiratory failure/underlying pulmonary disease.
Intolerant to CPAP/BiPAP
History of medical noncompliance
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
Admission to [facility] 05/2024 with acute/chronic heart failure.
Reported history of COPD/asthma, follows with Russ Smith
Atrial flutter with RVR (new onset)
Mild�moderate pulmonary hypertension with PASP 45�50 assuming an RAP of 15 mmHg
Severe CHAS intolerant to CPAP (per patient) with secondary polycythemia (initial Hb 18.5 on 01/19/2024)
Suspected OHS
Morbid obesity, BMI 48
Hypertension
Hyperlipidemia
DM type II
Aortic stenosis s/p TAVR
Anxiety
History of CVA
Former tobacco smoker (quit 1999)
Plan:
-
This morning oxygenation improved down from 10 L to 6 L nasal cannula. Reason for hypoxemia-likely volume overload, subsegmental atelectasis, obesity. Immobility.
I was consulted for evaluation of persistent hypoxemia on 07/24/2024.
-
Patient known to our service from prior admission-usually follows up with outside pulmonary for COPD/asthma/obstructive sleep apnea possibly obesity hypoventilation syndrome that is untreated/pulmonary hypertension due to above.
reports that patient has not been using her nebulizers or her vest therapy at home for weeks. She does have history of chronic coughing and phlegm production-poor compliance.
She has a noninvasive mechanical ventilator at home that she is supposed to use at night but she is not consistent. She has a nasal mask.
-
Continue to wean down FiO2 to maintain pulse ox above 90%. Currently not in distress. 6 L nasal cannula and pulse ox is 92% at rest.
Not bronchospastic on exam
Comfortably sitting up in chair-encourage increased activity.
-
Suspect persistent hypoxemia explained by pulmonary edema given findings on CAT scan of the chest with bilateral effusions and increased interstitial markings.
There is no evidence for pneumonia or interstitial lung disease.
No evidence for significant emphysema.
No evidence for pulmonary embolism patient on anticoagulation as well.
-
COPD/asthma: Not bronchospastic on exam.
Mild rhonchi on exam-good air movement: Not bronchospastic.
No indication for systemic corticosteroids.
Not impressive for significant acute exacerbation of asthma/COPD.
Patient has not been using nebulizer therapy at home for weeks per .
-
Continue Pulmicort/DuoNebs. Hold inhalers
Acapella device also will be started. She usually uses vest therapy at home but she does not like it and has not been using for several weeks.
-
Yupelri/AFormoterol/budesonide in the outpatient setting(restart upon discharge)
Patient reports difficulty expectorating: She has percussion therapy at home. vest therapy, patient benefited from this during our last visit- she does not like ti. She states that she has a chronic cough at home-Acapella device
-
Immobility/subsegmental atelectasis also likely contributing.
Patient is mainly sedentary at home
Incentive spirometry encouraged.
Hopefully we can start mobilizing her
-
Does have moderate to severe pulmonary hypertension with RV dysfunction: Suspect due to untreated sleep disorder and chronic hypercapnia.
Patient has chronic hypercapnic respiratory failure: Due to severe obstructive sleep apnea as well as likely obesity hypoventilation syndrome.
Intolerant to noninvasive mechanical ventilation in the past.
This will explain her worsening pulmonary hypertension.
Patient is aware/ is aware
Noninvasive mechanical ventilator was arranged last visit and she received that at home. She has not been consistent with usage per .
-
Noninvasive mechanical ventilation-patient's machine will continue at night and with naps as tolerated. Compliance is poor, usage was encouraged.
She has been explained in the past that lack of usage of noninvasive mechanical ventilation will increase risk of readmission, and progressive pulmonary hypertension.
Avoid sedative.
-
Cardiology correspondence reviewed.
Continue IV Bumex/metolazone
Monitor electrolytes and creatinine-currently tolerating with normal creatinine.
Weight is trending lower.
Creatinine holding.
-
If there is no ongoing improvement on hypoxemia despite aggressive diuresis her right heart catheterization will be needed, this has been contemplated in the past.
Follow daily weights-trending lower
-
History of CVA, CT head showing meningioma-neurologically intact
-
DVT prophylaxis-on warfarin, INR now greater than [address] Maharaj updated at the bedside 07/25/2024, 07/27/2023, 07/28/2023 and discussed the possibility of addressing CODE STATUS as the patient has recurrent admissions for similar situations. Has not been compliant at home.
She ultimately will follow-up with her private media consultant outside sales, Dr. Smith.
Will follow

Diagnostic Data
CXR 01/19/24- Mild pulmonary edema. No definite pleural effusion.
-
CT chest 07/24/2024: Reviewed
Negative for pulmonary embolism.
Enlargement of the main pulmonary artery as well as the right ventricle and right atrium. TAVR in place. Small bilateral pleural effusions, left greater than right. Mild peripheral increase interstitial markings suggestive of interstitial
pulmonary edema.
-
CTA Chest 01/19/2024: No evidence of pulmonary embolism or active pulmonary process. Bilateral hilar lymphadenopathy. It is difficult to evaluate for hilar lymphadenopathy on the previous CT from 09/09/2022 given the absence of intravenous contrast on
this exam. Mediastinal lymphadenopathy is unchanged. Dilated pulmonary arterial system which can be seen in the setting of pulmonary arterial hypertension.
CT Head 03/03/24- 1). There are no acute intracranial abnormalities
2). Old 6.5 cm right occipital infarct
3). 2.8 cm meningioma over the anterolateral right parietal convexity
Echocardiogram 07/21/2024: Reviewed
Normal LVEF.
Mild LVH.
Flattened septum in systole and diastole consistent with RV pressure and volume overload.
Left ventricular ejection fraction 70 to 75%.
Severely dilated and hypokinetic right ventricle.
Moderately dilated left atrium
Severely dilated right atrium
Mitral stenosis-mild.
Mild MR.
Moderate TR. Estimated pulmonary pressure 73 mmHg.
Compared to 07/10/2024-mitral gradient is increased 12/5 from 9/5. Aortic gradient is increased 12/6 from 6/6. No other significant changes
ECHO 01/19/24- Hyperdynamic left ventricular systolic function. LV ejection fraction is 70- 75%. Mild mitral stenosis. s/p TAVR 29 mm Medtronic Evolut. Peak/mean gradients across the aortic valve are 8/5 mmHg. No aortic regurgitation. Enlarged right
ventricular size. Reduced right ventricular systolic function. Septal flattening in systole and diastole consistent with RV pressure and volume overload. Mild tricuspid regurgitation. Moderately elevated PASP. Estimated pulmonary artery pressure of
45-50 mmHg assuming a right atrial pressure of 15 mmHg. Compared to 05/01/22: RV dysfunction is now present. PASP was unable to be measured on prior study.
Reports and relevant images were personally reviewed.
Subjective Data
-
Date of Service:
Date of Service: July 28, 2024
Chief Complaint: Pulmonary Follow Up (Acute on chronic hypoxemic and hypercapnic respiratory failure)
Subjective:
Patient denies any complaint at rest.
Denies increased cough or phlegm production
Weight is trending lower
Did not use noninvasive mechanical ventilation last night.
Denies headache.
Review of Systems
Cardiopulmonary: Dyspnea (none at rest)
GI: Abdominal Pain (n) and Nausea (n)
Neuro: Headache (n)
Objective Data
Data Reviewed
Vital Signs / I&O / Oxygen:
Vital Signs
Temp Pulse Resp BP Pulse Ox
97.7 F 82 25 153/113 94
07/28/24 07:07 07/28/24 10:00 07/28/24 10:00 07/28/24 10:00 07/28/24 09:08
Intake and Output
07/27/24 07/28/24 07/29/24
06:59 06:59 06:59
Intake Total 840 / 840
Output Total 1675 / 1675 1750 / 1750
Balance -1675 / -1675 -910 / -910
SaO2 94
Nasal Cannula flow liters per 6
minute
Physical Exam
General: Comfortable
HEENT: Normocephalic
Cardiovascular: S1-S2
Respiratory: Non-Labored Respirations
GI: Soft and Non Distended
Neurology: Awake, AO x 3 and No Motor Deficits
Skin: Warm, Other (Chronic acrocyanosis on the lower extremities) and Other (Lower extremity with venous stasis changes)
Labs/Micro/Reports
Lab Data
07/28/24 05:06
07/28/24 05:05
Laboratory Results
07/28/24 07/28/24
05:05 06:17
PT Cancelled 28.6 H
INR Cancelled 2.64
[2024-07-28] MEDS: STERILE WATER FOR INJECTION IV (11:01)
[2024-07-28] MEDS: KCL 40 MEQ PO (11:04)
[2024-07-28] MEDS: STERILE WATER FOR INJECTION 10 ML IV (11:04)
[2024-07-28] MEDS: ROCEPHIN 1000 MG IV (11:04)
--- NOTE | 2024-07-28 12:38 | W.PN.CARDCBS ---
Today's Communication / Plan
-
Overall slowly improving. Will give extra dose of metolazone today with Bumex 3 mg IV twice daily.
Creatinine is stable. Replete potassium.
I suspect another 24 hours of IV diuretics and hopefully we can switch to oral. Exam is very difficult.
Continue Toprol and digoxin for rate control. No further ventricular tachycardia
Impression / Plan
-
Primary [facility] Specialist: Dr. CHAVA Alejandro
Assessment:
Admitted with confusion/metabolic encephalopathy 07/20/24
Acute on chronic hypoxemic respiratory failure
Acute on chronic HFpEF
AIYANA
Admission to [facility] for syncope vs fall 07/10-07/11/24
LE wounds
Persistent AFib
NSVT, 07/21/24
Chronic Coumadin therapy, managed by cardiology
Essential HTN
DM2
h/o TAVR 2021
Severe pulm HTN
COPD, chronically on 3L NC
h/o R post CVA
h/o R parietal meningioma
CHAS: intolerant of CPAP
Hyperlipidemia
Morbid obesity
Chronic lymphedema
History of PE
Uncharacterized liver lesion
Subclinical hyperthyroidism
History of gastric bypass
Depression/anxiety/insomnia with history of serotonin syndrome admission 03/2024
Polypharmacy
History of falls
Echo 07/10/2024: EF 70 to 75%, evidence of RV pressure and volume overload, mild concentric LVH, MAC, mild MS with peak/mean gradients 9/5 mmHg, trace MR, number 29 mm Medtronic evolute TAVR with peak/mean gradient 6/3 mmHg, moderate to severe TR,
PAP 79 mmHg, severely dilated right heart, no significant change compared to prior
Echo 07/21/24:EF 70-75%, dilated RV with RV hypokinesis, mean mitral gradient 5, mild MR, status post Evolut transcatheter aortic valve with mean gradient of 6 and no AI, moderate TR with PA pressure 73
Plan:
-Pulmonology note reviewed and they suspect that ongoing hypoxemia is related to ongoing CHF. They do not suspect PNA, ILD or emphysema. Although they do note that the patient's reported that the patient was not using nebulizers or her
vest therapy at home for weeks prior to admission, she is also inconsistent with noninvasive mechanical ventilator at home that she is supposed to use at .
-Weight is overall down 10 pounds. Would give 1 more dose of metolazone with Bumex 3 mg IV twice daily.
-Cre has improved with attempts at diuresis. I think another 24 hours of IV diuretics and we could switch to oral.
-EF 70-75% by echo 07/21/24 and TAVR mean gradient 6 mmHg without any AI
-Cont Toprol XL 50 mg BID. Dose was briefly increased this admission for NSVT, but then developed hypotension.
-Outpatient dose of Jardiance 10 mg daily was transition to Farxiga 10 mg daily due to formulary changes at , but should resume Jardiance upon D/C to home
-Patient was not taking VIVEK/ARB/ARNI/aldosterone antagonist prior to admission due to hypotension. Previous episode of hypotension and syncope with spironolactone on 07/12/2024
-Episode of NSVT 07/21/24, no further VT.
-Patient with known persistent A-fib. HR controlled with Toprol-XL and chronic outpatient dose of digoxin 125 mcg SuTuThSa. Digoxin level 0.5 on 07/20/2024
-Patient is chronically on warfarin with INR goal of 2-3 as managed by cardiology. Patient uses a home monitor. Outpatient dose of warfarin 2 mg daily is ordered. INR 2.64
Progress Note - Grant Specialist
Subjective
Date of Service: July 28, 2024
Breathing is overall stable. Weight is down 10 pounds total
Objective
Labs:
07/28/24 05:06
07/28/24 05:05
Labs
Hgb 17.2 g/dL (12.0-16.0) H 07/28/24 05:06
Hct 50.8 % (37.0-47.0) H 07/28/24 05:06
Plt Count 186 10^3/uL (130-400) 07/28/24 05:06
PT 28.6 Sec (11.4-14.6) H 07/28/24 06:17
INR 2.64 07/28/24 06:17
Sodium 142 mmol/L (135-145) 07/28/24 05:05
Potassium 3.3 mmol/L (3.5-5.1) L 07/28/24 05:05
BUN 31 mg/dl (7-17) H 07/28/24 05:05
Creatinine 0.7 mg/dL (0.6-1.0) 07/28/24 05:05
Glucose 119 mg/dl (70-99) H 07/28/24 05:05
Digoxin 0.5 ng/ml (0.8-2.0) L 07/20/24 11:55
Vital Signs and I&O:
Vital Signs
Temp Pulse Resp BP Pulse Ox
97.7 F 90 18 153/113 93
07/28/24 07:07 07/28/24 11:25 07/28/24 11:25 07/28/24 10:00 07/28/24 11:25
Vital Signs
Temp Pulse Resp BP Pulse Ox
97.7 F 90 18 153/113 93
07/28/24 07:07 07/28/24 11:25 07/28/24 11:25 07/28/24 10:00 07/28/24 11:25
Intake & Output
07/26/24 07/27/24 07/28/24 07/29/24
06:59 06:59 06:59 06:59
Intake Total 840 / 840
Output Total 750 / 750 1675 / 1675 1750 / 1750
Balance -750 / -750 -1675 / -1675 -910 / -910
Physical Exam
Physical Exam
GEN: No distress, awake, Ox3
HEENT: supple, anicteric, mmm
LUNGS: CTA, no wheezes/rales
CV: Reg, S1/S2, 1/6 syst LSB, no murmur
ABD: soft, BS+, NT/ND
EXT: +1 edema
NEURO: Gross non-focal
SKIN: chronic stasis changes
[2024-07-28 12:44] LABS: Glucose - Point of Care 167 mg/dl (70-99)
[2024-07-28] MEDS: NOVOLOG FLEXPEN-LOW RESISTANCE 1 UNITS SC ×2 (13:02→17:35)
--- NOTE | 2024-07-28 13:45 | W.PN.HOSP.TC ---
Today's Communication/Plan
-
Monitor vital signs see plan
Continue with diuresis per cardiology
Wean oxygen as tolerated
Encouraged use of noninvasive ventilator at night
Finished antibiotic treatment
Assessment / Plan
Assessment / Plan
Gen-AAOx3, NAD
HEENT-NC, AT, anicteric, clear oral mm
Neck-supple
CV-reg, no M, +S1/S2
Lungs-clear B/L
Abd-soft, NT, ND
Ext-bilateral lower extremity edema, dusky and purple-colored lower extremities including toes
Skin-warm and dry
Neuro-grossly non-focal
Psych-calm, cooperative
Acute metabolic encephalopathy -likely due to acute on chronic hypoxic respiratory failure due to acute on chronic heart failure.
Suspect encephalopathy can be secondary to urinary tract infection, started ceftriaxone. Patient does have increased urgency, dysuria
Chronic hypoxemic respiratory failure on 3 L baseline
cw duoneb; cw bumex
abg noted
-BNP of 1270 from 2400 previously
-Chest x-ray shows prominence of bronchovascular markings possibly chronic versus mild vascular congestion
-Patient on 6 L oxygen currently; wean oxygen as tolerated
-cont diuresis w bumex along with intermittent metolazone
CT chest with interstitial edema; no PE
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 Patient now using her home non invasive vent. Discussed importance of compliance.
Possibility of acute atelectasis as well
Acute on chronic heart failure with preserved EF exacerbation -continue IV Bumex.
Echocardiogram shows LVEF 70 to 75%, severe RV dilation and hypokinesis, moderately dilated LA, severely dilated RA, moderate TR, estimated PA pressure of 73 mmHg.
Suspect severe pulmonary hypertension related to obesity, CHAS, COPD, etc. Pulmonary hypertension related severe right heart failure.
Ecoli UTI
Finished treatment with ceftriaxone
AIYANA likely cardiorenal. Creatinine improving
Recent syncopal episode
-Patient with media monitor prescribed by [facility] Cardiology
Bilateral lower extremity lymphedema with traumatic injuries
-Legs do not appear infected
-Outpatient follow-up with lymphedema clinic
Anxiety/depression
-Outpatient psychiatry follow-up
Persistent atrial fibrillation
-Continue Coumadin, INR daily
-Continue metoprolol
-Continue digoxin
Aortic stenosis status post TAVR
COPD without exacerbation
-Continue Brovana Yupelri
monitor
Obstructive sleep apnea
Pulmonary hypertension
Moderate to severe tricuspid regurgitation
Essential hypertension
DM2 without hyperglycemia -hemoglobin A1c 7.4%.
-Hold metformin
-Continue Jardiance
Hyperlipidemia
-Continue statin
Anxiety
-Continue temazepam, duloxetine
Raynaud's
Meningioma
Morbid obesity due to excess calories -weight loss encouraged.
Hyperlipidemia
History of right posterior CVA
History of right parietal meningioma
-Following with Dr. Love
Presumed restless legs
-Continue ropinirole, gabapentin
Stage 3 right buttock pressure injury, POA.
Full code
PT rec SNF
Discussed medical complexity and goals of care. Patient is aware that if she is not compliant with noninvasive vent then not much to offer
Spouse updated
I spent a total of 52 minutes with the patient or on the floor. More than 50% of this time involved counseling and coordination of care.
Anticipated Discharge: 24 - 48 hours
Subjective/Interval History
-
Date of Service: July 28, 2024
denies pain
Objective Data
-
Labs:
Laboratory Results
07/28/24 07/28/24 07/28/24
05:05 05:06 06:17
WBC 6.3
Hgb 17.2 H
Hct 50.8 H
Plt Count 186
PT Cancelled 28.6 H
INR Cancelled 2.64
Sodium 142
Potassium 3.3 L
Chloride 96 L
Carbon Dioxide 35 H
BUN 31 H
Creatinine 0.7
Glucose 119 H
Calcium 9.3
Total Bilirubin 2.7 H
AST 44 H
ALT 29
Alkaline Phosphatase 312 H
Vital Signs:
Vital Signs
Temp Pulse Resp BP Pulse Ox
97.7 F 90 18 153/113 93
07/28/24 07:07 07/28/24 11:25 07/28/24 11:25 07/28/24 10:00 07/28/24 11:25
I&O
07/27/24 07/28/24 07/29/24
06:59 06:59 06:59
Intake Total 840 / 840 480 / 480
Output Total 1675 / 1675 1750 / 1750 1000 / 1000
Balance -1675 / -1675 -910 / -910 -520 / -520
[2024-07-28] MEDS: ZAROXOLYN 2.5 MG PO (15:30)
[2024-07-28] MEDS: COUMADIN 2 MG PO (17:32)
[2024-07-28 17:45] LABS: Glucose - Point of Care 175 mg/dl (70-99)
--- NOTE | 2024-07-28 18:19 | PTCARENOTE ---
Patient AOx3. Patient is forgetful at times. Bed alarm on and audible. 5-6L midflow tubbing. A fib on monitor. BP stable. +3 B/L LE edema. Weak pedal pulses. Raynaud's in B/L hands and feet. Purewick in place due to patient being incontinent.
Patient tolerating diet. Call avitia within reach, bed in lowest position, and bed of wheels locked.
--- NOTE | 2024-07-28 20:38 | PTCARENOTE ---
Received pt from fátima RN. Pt aaox3, able to make needs known. Purwick in place, draining clear yellow urine. However, patient found to be saturated in urine. Complete bed bath given. Bed sheets changed. Purwick in place. Desenex applied to
abdominal folds and groin. Call avitia and belongings within reach, care ongoing.
[2024-07-28] MEDS: REQUIP 0.25 MG PO (20:59)
[2024-07-28] MEDS: RESTORIL 15 MG PO (21:00)
[2024-07-28 22:26] LABS: Glucose - Point of Care 113 mg/dl (70-99)
[2024-07-29] VITALS (10 sets, daily range): BP systolic 97–119; BP diastolic 62–105; BMI 46.7
--- NOTE | 2024-07-29 00:51 | RESPNOTE ---
pt requirred help placing herself on her home cpap
[2024-07-29 04:46] LABS: Hematocrit 48.7 % (37.0-47.0); Hemoglobin 15.9 g/dL (12.0-16.0); Mean Corp Hgb Conc. 32.6 g/dL (33.0-37.0); Mean Corpuscular Hgb 33.9 pg (27.0-31.0); Mean Corpuscular Volume 103.8 fL (81.0-99.0); Mean Platelet Volume 10.8 fL (7.4-10.4); Platelet Count 178 10^3/uL (130-400); Red Blood Cell Count 4.69 10^6/uL (4.20-5.40); Red Cell Dist. Width 16.9 % (11.5-14.5); White Blood Cell Count 6.2 10^3/uL (4.8-10.8)
[2024-07-29 04:58] LABS: INR 2.64; PT 28.2 Sec (11.4-14.6)
[2024-07-29 05:13] LABS: ALT (SGPT) 28 U/L (0-35); AST (SGOT) 43 U/L (14-36); Albumin 3.1 g/dl (3.5-5.0); Alkaline Phosphatase 302 U/L (38-126); Blood Urea Nitrogen 30 mg/dl (7-17); Calcium 9.2 mg/dl (8.4-10.2); Chloride 90 mmol/L (98-107); Estimated Creatinine Clearance 94 ml/min; Glucose 121 mg/dl (70-99); Potassium 2.9 mmol/L (3.5-5.1); Sodium 140 mmol/L (135-145); Total Bilirubin 2.5 mg/dl (0.2-1.3); Total Protein 6.7 g/dl (6.3-8.2); eGFR > 60.00
[2024-07-29 05:24] LABS: Carbon Dioxide 42 mmol/L (22-30)
[2024-07-29] MEDS: PULMICORT 0.5 MG INH ×2 (07:28→19:54)
[2024-07-29] MEDS: DUONEB 3 ML INH ×3 (07:29→19:54)
[2024-07-29 07:30] LABS: Glucose - Point of Care 107 mg/dl (70-99)
[2024-07-29] MEDS: NOVOLOG FLEXPEN-LOW RESISTANCE SC (08:15)
--- NOTE | 2024-07-29 08:28 | PTCARENOTE ---
Patient received from cage shift manager. Patient is resting comfortably in bed. AAO, no noticable confusion this AM, VSS. No events noted overnight. No complaints of pain at this time. Patient wore BiPAP for approx. 4hrs last night. Will attempt to
get OOB to chair. Patient currently on 8L Midflow N/C, continue to wean as tolerated. Continuing ABX and diuresis. No further testing scheduled at this time. Call avitia in reach.
[2024-07-29] MEDS: BUMEX 3 MG IV ×2 (08:46→18:01)
[2024-07-29] MEDS: NEURONTIN 300 MG PO ×3 (08:53→21:36)
[2024-07-29] MEDS: KCL 20 MEQ PO ×2 (08:53→10:29)
[2024-07-29] MEDS: LANOXIN 125 MCG PO (08:53)
[2024-07-29] MEDS: FARXIGA 10 MG PO (08:53)
[2024-07-29] MEDS: LIPITOR 10 MG PO (08:53)
[2024-07-29] MEDS: TOPROL XL 50 MG PO ×2 (08:53→21:36)
[2024-07-29] MEDS: CYMBALTA DELAYED RELEASE 60 MG PO (08:53)
[2024-07-29] MEDS: OSCAL 500 + D 500 MG PO (08:53)
[2024-07-29] MEDS: VITAMIN B-12 2500 MCG PO (08:53)
[2024-07-29] MEDS: THERAGRAN 1 TABLET PO (08:53)
[2024-07-29] MEDS: DESENEX/MITRAZOL/ZEASORB 1 APPLIC TOPICAL ×2 (08:54→21:37)
[2024-07-29] MEDS: HYDROPHOR 1 APPLIC TOPICAL (08:54)
--- NOTE | 2024-07-29 08:55 | W.PN.CARDCBS ---
Today's Communication / Plan
-
Wt continues to improve. Over 4L negative with metolazone 07/28.
Cont IV Bumex 3 mg IV BID, eventual change to oral diuretic possibly next 24-48 hrs, dry wt unclear.
Will hold off on additional Metolazone today given significant hypokalemia
Cont Is and Os and daily wts. cr stable.
Replete potassium with additional 20 meq KCL in additional to 20 meq already given and IV K rider 40 meq
Known persistent atrial fibrillation, heart rate control with Toprol XL and digoxin. Digoxin level has been stable.
Continue Coumadin.
Impression / Plan
-
.
Primary Manager Animation: Dr. CHAVA Alejandro
Impression:
Admitted with confusion/metabolic encephalopathy 07/20/24
Acute on chronic hypoxemic respiratory failure
Acute on chronic HFpEF
Hypokalemia
AIYANA
Admission to [facility] for syncope vs fall 07/10-07/11/24
LE wounds
Persistent AFib,
Chronic Coumadin therapy, managed by cardiology
NSVT, 07/21/24
Essential HTN
DM2
h/o TAVR 2021
Severe pulm HTN
COPD, chronically on 3L NC
h/o R post CVA
h/o R parietal meningioma
CHAS: intolerant of CPAP
Hyperlipidemia
Morbid obesity
Chronic lymphedema
History of PE
Uncharacterized liver lesion
Subclinical hyperthyroidism
History of gastric bypass
Depression/anxiety/insomnia with history of serotonin syndrome admission 03/2024
Polypharmacy
History of falls
Echo 07/10/2024: EF 70 to 75%, evidence of RV pressure and volume overload, mild concentric LVH, MAC, mild MS with peak/mean gradients 9/5 mmHg, trace MR, number 29 mm Medtronic evolute TAVR with peak/mean gradient 6/3 mmHg, moderate to severe TR,
PAP 79 mmHg, severely dilated right heart, no significant change compared to prior
Echo 07/21/24:EF 70-75%, dilated RV with RV hypokinesis, mean mitral gradient 5, mild MR, status post Evolut transcatheter aortic valve with mean gradient of 6 and no AI, moderate TR with PA pressure 73
Plan:
Wt continues to improve. Over 4L negative with metolazone 07/28.
Cont IV Bumex 3 mg IV BID, eventual change to oral diuretic possibly next 24-48 hrs, dry wt unclear.
Will hold off on additional Metolazone today given significant hypokalemia
Cont Is and Os and daily wts. cr stable.
Replete potassium with additional 20 meq KCL in additional to 20 meq already given and IV K rider 40 meq
Known persistent atrial fibrillation, heart rate control with Toprol XL and digoxin. Digoxin level has been stable.
Continue Coumadin.
Cont GDMT
ACEI/ARB/Arni/aldosterone antagonist prior to admission stopped due to hypotension.
No further NSVT
He has preserved with TAVR mean gradient 6 mmHg and no AI by echo July 21, 2024 EF 70-75%
-patient's reported that the patient was not using nebulizers or her vest therapy at home for weeks prior to admission, she is also inconsistent with noninvasive mechanical ventilator at home that she is supposed to use at .
-Cont Toprol XL 50 mg BID. Dose was briefly increased this admission for NSVT, but then developed hypotension.
-Outpatient dose of Jardiance 10 mg daily was transition to Farxiga 10 mg daily due to formulary changes at , but should resume Jardiance upon D/C to home
- HR controlled with Toprol-XL and chronic outpatient dose of digoxin 125 mcg SuTuThSa. Digoxin level 0.5 on 07/20/2024
-Patient is chronically on warfarin with INR goal of 2-3 as managed by cardiology. Patient uses a home monitor. Outpatient dose of warfarin 2 mg daily is ordered.
Discussed with nursing.
Progress Note - Manager Animation
Subjective
Date of Service: July 29, 2024
Pt seen and examined. No cp or dyspnea.
Objective
Labs:
07/29/24 04:08
07/29/24 04:08
Labs
Hgb 15.9 g/dL (12.0-16.0) 07/29/24 04:08
Hct 48.7 % (37.0-47.0) H 07/29/24 04:08
Plt Count 178 10^3/uL (130-400) 07/29/24 04:08
PT 28.2 Sec (11.4-14.6) H 07/29/24 04:08
INR 2.64 07/29/24 04:08
Sodium 140 mmol/L (135-145) 07/29/24 04:08
Potassium 2.9 mmol/L (3.5-5.1) L 07/29/24 04:08
BUN 30 mg/dl (7-17) H 07/29/24 04:08
Creatinine 0.7 mg/dL (0.6-1.0) 07/29/24 04:08
Glucose 121 mg/dl (70-99) H 07/29/24 04:08
Digoxin 0.5 ng/ml (0.8-2.0) L 07/20/24 11:55
Vital Signs and I&O:
Vital Signs
Temp Pulse Resp BP Pulse Ox
97.6 F 87 20 106/76 96
07/29/24 07:28 07/29/24 08:53 07/29/24 07:32 07/29/24 08:46 07/29/24 07:32
Vital Signs
Temp Pulse Resp BP Pulse Ox
97.6 F 87 20 106/76 96
07/29/24 07:28 07/29/24 08:53 07/29/24 07:32 07/29/24 08:46 07/29/24 07:32
Intake & Output
07/27/24 07/28/24 07/29/24 07/30/24
06:59 06:59 06:59 06:59
Intake Total 840 / 840 480 / 480
Output Total 1675 / 1675 1750 / 1750 4600 / 4600
Balance -1675 / -1675 -910 / -910 -4120 / -4120
Physical Exam
Physical Exam
General: No acute distress, AAOX3
Neck: Negative JVD
Heart: irregularly irregular, Negative S3 positive S1/S2, Negative S4, No murmur
Lungs: CTA b/l, negative wheezes/rales/rhonchi
Abd: Positive BS, NT/ND, neg rebound/rigidity/guarding
Ext: Negative cyanosis/clubbing. + 1-b/ledema
Neuro: nonfocal
[2024-07-29] MEDS: STERILE WATER FOR INJECTION 10 ML IV (09:03)
[2024-07-29] MEDS: ROCEPHIN 1000 MG IV (09:03)
[2024-07-29] MEDS: KCL 270 MEQ IV (10:29)
--- NOTE | 2024-07-29 13:07 | W.PN.HOSP.TC ---
Today's Communication/Plan
-
Monitor vital signs see plan
PT/OT
Wean oxygen as tolerated
Continue with IV diuresis, no metolazone today
Cardiology following
noninvasive ventilator at night
Replete potassium
Assessment / Plan
Assessment / Plan
Gen-AAOx3, NAD
HEENT-NC, AT, anicteric, clear oral mm
Neck-supple
CV-reg, no M, +S1/S2
Lungs-clear B/L
Abd-soft, NT, ND
Ext-bilateral lower extremity edema, dusky and purple-colored lower extremities including toes
Skin-warm and dry
Neuro-grossly non-focal
Psych-calm, cooperative
Acute metabolic encephalopathy -likely due to acute on chronic hypoxic respiratory failure due to acute on chronic heart failure.
Suspect encephalopathy can be secondary to urinary tract infection, started ceftriaxone. Patient does have increased urgency, dysuria
Chronic hypoxemic respiratory failure on 3 L baseline
cw duoneb; cw bumex, intermittent use of metolazone.
abg noted
-BNP of 1270 from 2400 previously
-Chest x-ray shows prominence of bronchovascular markings possibly chronic versus mild vascular congestion
-Patient on 6 L oxygen currently; wean oxygen as tolerated
-cont diuresis w bumex along with intermittent metolazone
CT chest with interstitial edema; no PE
Pulmonary consulted, patient has a heel edge inker machine outpatient and has been on nocturnal noninvasive vent. Patient now using her home non invasive vent. Discussed importance of compliance.
Possibility of acute atelectasis as well
Acute on chronic heart failure with preserved EF exacerbation -continue IV Bumex.
Echocardiogram shows LVEF 70 to 75%, severe RV dilation and hypokinesis, moderately dilated LA, severely dilated RA, moderate TR, estimated PA pressure of 73 mmHg.
Suspect severe pulmonary hypertension related to obesity, CHAS, COPD, etc. Pulmonary hypertension related severe right heart failure.
Hypokalemia
Replete
Ecoli UTI
Finished treatment with ceftriaxone
AIYANA likely cardiorenal. Creatinine improving
Recent syncopal episode
-Patient with mosaicist prescribed by [facility]
Bilateral lower extremity lymphedema with traumatic injuries
-Legs do not appear infected
-Outpatient follow-up with lymphedema clinic
Anxiety/depression
-Outpatient psychiatry follow-up
Persistent atrial fibrillation
-Continue Coumadin, INR daily
-Continue metoprolol
-Continue digoxin
Aortic stenosis status post TAVR
COPD without exacerbation
-Continue Brovana, Yupelri
monitor
Obstructive sleep apnea
Pulmonary hypertension
Moderate to severe tricuspid regurgitation
Essential hypertension
DM2 without hyperglycemia -hemoglobin A1c 7.4%.
-Hold metformin
-Continue Jardiance
Hyperlipidemia
-Continue statin
Anxiety
-Continue temazepam, duloxetine
Raynaud's
Meningioma
Morbid obesity due to excess calories -weight loss encouraged.
Hyperlipidemia
History of right posterior CVA
History of right parietal meningioma
-Following with Dr. Love
Presumed restless legs
-Continue ropinirole, gabapentin
Stage 3 right buttock pressure injury, POA.
Full code
PT rec SNF
I spent a total of 52 minutes with the patient or on the floor. More than 50% of this time involved counseling and coordination of care.
Anticipated Discharge: > 48 hours
Subjective/Interval History
-
Date of Service: July 29, 2024
Denies chest pain
Objective Data
-
Labs:
Laboratory Results
07/29/24
04:08
WBC 6.2
Hgb 15.9
Hct 48.7 H
Plt Count 178
PT 28.2 H
INR 2.64
Sodium 140
Potassium 2.9 L
Chloride 90 L
Carbon Dioxide 42 H
BUN 30 H
Creatinine 0.7
Glucose 121 H
Calcium 9.2
Total Bilirubin 2.5 H
AST 43 H
ALT 28
Alkaline Phosphatase 302 H
Vital Signs:
Vital Signs
Temp Pulse Resp BP Pulse Ox
98.4 F 86 20 106/76 94
07/29/24 11:49 07/29/24 11:04 07/29/24 11:04 07/29/24 08:46 07/29/24 11:04
I&O
07/28/24 07/29/24 07/30/24
06:59 06:59 06:59
Intake Total 840 / 840 480 / 480
Output Total 1750 / 1750 4600 / 4600 1200 / 1200
Balance -910 / -910 -4120 / -4120 -1200 / -1200
[2024-07-29 13:14] LABS: Glucose - Point of Care 179 mg/dl (70-99)
[2024-07-29] MEDS: KCL 40 MEQ PO (13:20)
[2024-07-29] MEDS: NOVOLOG FLEXPEN-LOW RESISTANCE 300 UNITS SC (13:22)
[2024-07-29] MEDS: DUONEB INH (15:23)
--- NOTE | 2024-07-29 16:30 | W.PN.PUL3 ---
Today's Communication / Plan
-
Believe that her SOB/hypoxia is mainly due to untreated PH --> recommend a right heart cath
RHC would allow us to view her mPAP but more importantly her transpulmonary gradient and PVR, and if PCWP relatively low then would start her on combination therapy given her class III/IV symptoms right now
Continue IV diuresis for now
Continue nebulizer therapy
Antibiotics for her UTI
Incentive spirometer
Noninvasive mechanical ventilator as able-she has her home machine.
Increase activity as tolerated
Wean supplemental oxygen as tolerated
Pulmonary service will continue to follow along
Assessment
-
Patient is a 68 year old F with PMHx of COPD, HTN, HLD, anxiety, CHAS intolerant to CPAP, s/p TAVR, Afib on coumadin, pulmonary HTN, chronic hypoxic/hypercapnic respiratory failure on 3L home O2, HFpEF -in the hospital in early May with acute
hypoxemic respiratory failure due to heart failure and responded to diuresis. Back with hypoxemia, increased proBNP and possibly volume overload. Despite diuresis remains on mid flow oxygen. I was consulted on 07/25/2024 for evaluation of
persistent hypoxemia despite diuresis.
Acute on chronic hypoxemic respiratory failure usually on 3 L supplemental oxygen ATC
Acute HFpEF exacerbation with severely dilated and hypokinetic RV seen on TTE from 07/21/2024
Valvular heart disease with mild MS, mild MR, moderate TR with severe pulmonary hypertension with PASP 73 mmHg - per TTE from 07/21/2024
Chronic pulmonary hypertension: Multiple mechanisms: Cardiac disease/underlying sleep disorder-obstructive sleep apnea/chronic hypercapnic respiratory failure/underlying pulmonary disease.
Intolerant to CPAP/BiPAP
History of medical noncompliance
UTI due to E. coli
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
Admission to [facility] 05/2024 with acute/chronic heart failure.
Reported history of COPD/asthma, follows with Russ Smith
Atrial flutter with RVR (new onset)
Mild�moderate pulmonary hypertension with PASP 45�50 assuming an RAP of 15 mmHg
Severe CHAS intolerant to CPAP (per patient) with secondary polycythemia (initial Hb 18.5 on 01/19/2024)
Suspected OHS
Morbid obesity, BMI 48
Hypertension
Hyperlipidemia
DM type II
Aortic stenosis s/p TAVR
Anxiety
History of CVA
Former tobacco smoker (quit 1999)
Plan:
-
She is continuing to improve, now down to 5 L/min nasal cannula, as she was as high as 12 L/min via mid flow on 07/25/2024 Reason for hypoxemia-likely volume overload, subsegmental atelectasis, obesity. Immobility.
Pulmonary consulted for evaluation of persistent hypoxemia on 07/24/2024.
I do believe that the majority of her shortness of breath is due to untreated severe pulmonary hypertension, as her RV and RA are very large on the CTA chest from 07/24/2024, and there was only mild interstitial pulmonary edema, and echo from
07/21/2024 showed evidence of systolic and diastolic septal flattening consistent with RV pressure and volume overload besides all this she also has a dilated and hypokinetic RV, which is making her right-sided pulm function worse, thus making her
shortness of breath and hypoxia worse
- Would argue that a right heart cath is needed, as if the TPG and PVR are high with a relatively low wedge, then perhaps we should start her on sildenafil, and she possibly may need dual therapy depending on her RHC #'s --> this will need to be
discussed with cardiology
-
Patient known to our service from prior admission-usually follows up with outside pulmonary for COPD/asthma/obstructive sleep apnea possibly obesity hypoventilation syndrome that is untreated/pulmonary hypertension due to above.
reports that patient has not been using her nebulizers or her vest therapy at home for weeks. She does have history of chronic coughing and phlegm production-poor compliance.
She has a noninvasive mechanical ventilator at home that she is supposed to use at night but she is not consistent. She has a nasal mask.
-
Continue to wean down supplemental O2 to keep SpO2 88-95%
Not bronchospastic on exam
Comfortably sitting up in chair-encourage increased activity.
-
There is no evidence for pneumonia or interstitial lung disease.
No evidence for significant emphysema.
No evidence for pulmonary embolism patient on anticoagulation as well.
Her RA and RV are very large, and echo shows pressure and volume overload with a dysfunctional RV. I believe if we off-load her RV and lower the PVR that she would get more CO from her RV and this would help her feel better and likely reduce her O2
needs
-
COPD/asthma: Not bronchospastic on exam.
Bilateral rales on exam-good air movement: Not bronchospastic.
No indication for systemic corticosteroids.
Not impressive for significant acute exacerbation of asthma/COPD.
Patient has not been using nebulizer therapy at home for weeks per .
-
Continue Pulmicort/DuoNebs. Hold inhalers
Acapella device also will be started. She usually uses vest therapy at home but she does not like it and has not been using for several weeks.
-
Yupelri/Aformoterol/budesonide in the outpatient setting(restart upon discharge)
Patient reports difficulty expectorating: She has percussion therapy at home. vest therapy, patient benefited from this during our last visit- she does not like it. She states that she has a chronic cough at home-uses Acapella device
-
Immobility/subsegmental atelectasis also likely contributing to her SOB/Hypoxia
Patient is mainly sedentary at home
Incentive spirometry encouraged.
Hopefully we can start mobilizing her
PT/OT recommended
-
Untreated sleep disorder and alveolar hypoventilation
Patient has chronic hypercapnic respiratory failure: Due to severe obstructive sleep apnea as well as likely obesity hypoventilation syndrome.
Intolerant to noninvasive mechanical ventilation in the past.
This will explain her worsening pulmonary hypertension.
Patient is aware/ is aware
Noninvasive mechanical ventilator was arranged last visit and she received that at home. She has not been consistent with usage per .
-
Noninvasive mechanical ventilation-patient's machine will continue at night and with naps as tolerated. Compliance is poor, usage was encouraged.
She has been explained in the past that lack of usage of noninvasive mechanical ventilation will increase risk of readmission, and progressive pulmonary hypertension.
Avoid sedative.
-
Cardiology correspondence reviewed.
Continue IV Bumex; she is s/p metolazone on 07/27 + 07/28
Monitor electrolytes and creatinine-currently tolerating with normal creatinine.
Weight is trending lower.
Creatinine holding.
-
If there is no ongoing improvement on hypoxemia despite aggressive diuresis her right heart catheterization will be needed, this has been contemplated in the past.
Follow daily weights-trending lower
-
History of CVA, CT head showing meningioma-neurologically intact
-
DVT prophylaxis-on warfarin, goal INR 2-[address] Maharaj updated at the bedside 07/25/2024, 07/27/2023, 07/28/2023 and discussed the possibility of addressing CODE STATUS as the patient has recurrent admissions for similar situations. Has not been compliant at home.
She ultimately will follow-up with her private dag sprayer, Dr. Smith.
Will follow

Diagnostic Data
CXR 01/19/24- Mild pulmonary edema. No definite pleural effusion.
-
CT chest 07/24/2024: Reviewed
Negative for pulmonary embolism.
Enlargement of the main pulmonary artery as well as the right ventricle and right atrium. TAVR in place. Small bilateral pleural effusions, left greater than right. Mild peripheral increase interstitial markings suggestive of interstitial
pulmonary edema.
-
CTA Chest 01/19/2024: No evidence of pulmonary embolism or active pulmonary process. Bilateral hilar lymphadenopathy. It is difficult to evaluate for hilar lymphadenopathy on the previous CT from 09/09/2022 given the absence of intravenous contrast on
this exam. Mediastinal lymphadenopathy is unchanged. Dilated pulmonary arterial system which can be seen in the setting of pulmonary arterial hypertension.
CT Head 03/03/24- 1). There are no acute intracranial abnormalities
2). Old 6.5 cm right occipital infarct
3). 2.8 cm meningioma over the anterolateral right parietal convexity
Echocardiogram 07/21/2024: Reviewed
Normal LVEF.
Mild LVH.
Flattened septum in systole and diastole consistent with RV pressure and volume overload.
Left ventricular ejection fraction 70 to 75%.
Severely dilated and hypokinetic right ventricle.
Moderately dilated left atrium
Severely dilated right atrium
Mitral stenosis-mild.
Mild MR.
Moderate TR. Estimated pulmonary pressure 73 mmHg.
Compared to 07/10/2024-mitral gradient is increased 12/5 from 9/5. Aortic gradient is increased 12/6 from 6/6. No other significant changes
ECHO 01/19/24- Hyperdynamic left ventricular systolic function. LV ejection fraction is 70- 75%. Mild mitral stenosis. s/p TAVR 29 mm Medtronic Evolut. Peak/mean gradients across the aortic valve are 8/5 mmHg. No aortic regurgitation. Enlarged right
ventricular size. Reduced right ventricular systolic function. Septal flattening in systole and diastole consistent with RV pressure and volume overload. Mild tricuspid regurgitation. Moderately elevated PASP. Estimated pulmonary artery pressure of
45-50 mmHg assuming a right atrial pressure of 15 mmHg. Compared to 05/01/22: RV dysfunction is now present. PASP was unable to be measured on prior study.
Reports and relevant images were personally reviewed.
Total time spent today was 53 minutes for this encounter. Time includes reviewing laboratory test/imaging results, reviewing pertinent medical records, obtaining and reviewing medical history, performing an appropriate exam, ordering medications,
tests and procedures. Time also includes documentation of this encounter, coordinating patient care and communicating with other healthcare professionals. Total time does not include separately billed tests performed on this date of service.
Subjective Data
-
Date of Service:
Date of Service: July 29, 2024
Chief Complaint: Pulmonary Follow Up (Acute on chronic hypoxemic and hypercapnic respiratory failure)
Subjective:
Patient was seen and evaluated earlier today (late note entry). She currently is sitting in bed, feels well without shortness of breath reported. Currently on 5 L/min nasal cannula saturating 92% (uses 3 L/min [id number] at home), with heart
rate 95 and BP 108/80. She was only able to pull 1.5 L from the incentive spirometer. She denies chest pain, ROOT, nausea, fevers or chills.
Review of Systems
General: Other (Negative unless mentioned above)
Objective Data
Data Reviewed
Vital Signs / I&O / Oxygen:
Vital Signs
Temp Pulse Resp BP Pulse Ox
97.6 F 84 20 97/62 96
07/29/24 07:28 07/29/24 07:32 07/29/24 07:32 07/29/24 04:00 07/29/24 07:32
Intake and Output
07/28/24 07/29/24 07/30/24
06:59 06:59 06:59
Intake Total 840 / 840 480 / 480
Output Total 1750 / 1750 4600 / 4600
Balance -910 / -910 -4120 / -4120
SaO2 96
Nasal Cannula flow liters per 6
minute
Physical Exam
General: Respiratory Distress (negative), Comfortable, Chills (negative) and Sweats (negative)
HEENT: Normocephalic and Anicteric
Cardiovascular: S1-S2, Rub (negative) and Peripheral Edema (+1 lower extremity edema bilaterally)
Respiratory: Wheeze (negative), Crackles (Bilateral), Rhonchi (negative) and Non-Labored Respirations
GI: Soft, Distended (Abdominal obesity), Non Tender and Normal Bowel Sounds
Neurology: AO x 3 and Tremors (negative)
Skin: Warm, Dry, Other (Chronic acrocyanosis on the lower extremities) and Other (Lower extremity with venous stasis changes)
Labs/Micro/Reports
Lab Data
07/29/24 04:08
07/29/24 04:08
Laboratory Results
07/29/24
04:08
PT 28.2 H
INR 2.64
[2024-07-29 17:23] LABS: Glucose - Point of Care 178 mg/dl (70-99)
[2024-07-29] MEDS: COUMADIN 2 MG PO (18:01)
[2024-07-29] MEDS: NOVOLOG FLEXPEN-LOW RESISTANCE 1 UNITS SC (18:04)
[2024-07-29] MEDS: RESTORIL 15 MG PO (21:37)
[2024-07-29] MEDS: REQUIP 0.25 MG PO (21:37)
[2024-07-29 21:45] LABS: Glucose - Point of Care 150 mg/dl (70-99)
[2024-07-30] VITALS (12 sets, daily range): BP systolic 90–112; BP diastolic 55–83; PULSE 87; O2SAT 92; BMI 45.6
--- NOTE | 2024-07-30 00:41 | PTCARENOTE ---
Pt noted to be more confused than normal. AAOx2, disoriented to place. Attempted to reorient pt, but pt continuously states that she is at her apartment, not the hospital, and is upset that her isn't with her. Attempted to get OOB to the
bathroom despite having a purwick in place. CO2 increased from day prior. Current CO2 42. Pt educated on the importance of bipap compliance. Pt wore bipap for about 2hr, removed bipap at 22:50 and refused to put it back on. Currently on 6LMF, SaO2
96%. VSS. Call avitia and belongings within reach. Bed alarm on. Care ongoing.
--- NOTE | 2024-07-30 01:36 | RESPNOTE ---
pt equired help placing themselves on their home cpap unit
[2024-07-30 05:02] LABS: Hematocrit 52.1 % (37.0-47.0); Hemoglobin 16.8 g/dL (12.0-16.0); Mean Corp Hgb Conc. 32.2 g/dL (33.0-37.0); Mean Corpuscular Hgb 33.7 pg (27.0-31.0); Mean Corpuscular Volume 104.4 fL (81.0-99.0); Mean Platelet Volume 11.1 fL (7.4-10.4); Platelet Count 205 10^3/uL (130-400); Red Blood Cell Count 4.99 10^6/uL (4.20-5.40); White Blood Cell Count 6.7 10^3/uL (4.8-10.8)
[2024-07-30 05:15] LABS: INR 2.32; PT 25.5 Sec (11.4-14.6)
[2024-07-30 05:27] LABS: ALT (SGPT) 29 U/L (0-35); AST (SGOT) 45 U/L (14-36); Albumin 3.5 g/dl (3.5-5.0); Alkaline Phosphatase 321 U/L (38-126); Blood Urea Nitrogen 32 mg/dl (7-17); Calcium 9.5 mg/dl (8.4-10.2); Chloride 88 mmol/L (98-107); Estimated Creatinine Clearance 72 ml/min; Glucose 139 mg/dl (70-99); Potassium 3.1 mmol/L (3.5-5.1); Sodium 140 mmol/L (135-145); Total Bilirubin 2.8 mg/dl (0.2-1.3); Total Protein 7.2 g/dl (6.3-8.2); eGFR > 60.00
[2024-07-30 05:46] LABS: Carbon Dioxide 40 mmol/L (22-30)
[2024-07-30] MEDS: DUONEB 3 ML INH ×4 (07:42→19:45)
[2024-07-30] MEDS: PULMICORT 0.5 MG INH ×2 (07:42→19:45)
[2024-07-30 08:29] LABS: Glucose - Point of Care 112 mg/dl (70-99)
[2024-07-30] MEDS: NOVOLOG FLEXPEN-LOW RESISTANCE SC ×2 (08:41→12:29)
[2024-07-30] MEDS: KCL 20 MEQ PO (08:54)
[2024-07-30] MEDS: DESENEX/MITRAZOL/ZEASORB 1 APPLIC TOPICAL ×2 (08:54→21:56)
[2024-07-30] MEDS: HYDROPHOR 1 APPLIC TOPICAL (08:55)
[2024-07-30] MEDS: LIPITOR 10 MG PO (08:56)
[2024-07-30] MEDS: VITAMIN B-12 2500 MCG PO (08:57)
[2024-07-30] MEDS: LANOXIN 125 MCG PO (08:57)
[2024-07-30] MEDS: FARXIGA 10 MG PO (08:57)
[2024-07-30] MEDS: TOPROL XL 50 MG PO ×2 (08:58→21:56)
[2024-07-30] MEDS: CYMBALTA DELAYED RELEASE 60 MG PO (08:58)
[2024-07-30] MEDS: OSCAL 500 + D 500 MG PO (08:58)
[2024-07-30] MEDS: NEURONTIN 300 MG PO ×3 (08:58→21:56)
[2024-07-30] MEDS: THERAGRAN 1 TABLET PO (08:58)
[2024-07-30] MEDS: BUMEX 3 MG IV ×2 (08:59→16:20)
[2024-07-30] MEDS: KCL 40 MEQ PO (10:04)
[2024-07-30] MEDS: ROCEPHIN 1000 MG IV (10:05)
[2024-07-30] MEDS: STERILE WATER FOR INJECTION 10 ML IV (10:05)
--- NOTE | 2024-07-30 11:56 | W.PN.HOSP.TC ---
Today's Communication/Plan
-
Monitor vital signs see plan
Replete potassium
Continue with diuresis
Wean oxygen as tolerated
Encourage noninvasive ventilator when sleeping
PT
Assessment / Plan
Assessment / Plan
Gen-AAOx3, NAD
HEENT-NC, AT, anicteric, clear oral mm
Neck-supple
CV-reg, no M, +S1/S2
Lungs-clear B/L
Abd-soft, NT, ND
Ext-bilateral lower extremity edema, dusky and purple-colored lower extremities including toes
Skin-warm and dry
Neuro-grossly non-focal
Psych-calm, cooperative
Acute metabolic encephalopathy -likely due to acute on chronic hypoxic respiratory failure due to acute on chronic heart failure.
Suspect encephalopathy can be secondary to urinary tract infection which is now improved, also secondary to hypoxia with hypercarbia. Patient does not use noninvasive vent all the time
Chronic hypoxemic respiratory failure on 3 L baseline
cw duoneb; cw bumex, intermittent use of metolazone.
abg noted
-BNP of 1270 from 2400 previously
-Patient on 6 L oxygen currently; wean oxygen as tolerated
-cont diuresis w bumex along with intermittent metolazone
CT chest with interstitial edema; no PE
Pulmonary consulted, patient has a dental service technician outpatient and has been on nocturnal noninvasive vent. Patient now using her home non invasive vent. Discussed importance of compliance.
Possibility of acute atelectasis as well
If respiratory status do not improve, then likely would need RHC
Acute on chronic heart failure with preserved EF exacerbation -continue IV Bumex.
Echocardiogram shows LVEF 70 to 75%, severe RV dilation and hypokinesis, moderately dilated LA, severely dilated RA, moderate TR, estimated PA pressure of 73 mmHg.
Suspect severe pulmonary hypertension related to obesity, CHAS, COPD, etc. Pulmonary hypertension related severe right heart failure.
Hypokalemia
Replete
Ecoli UTI
Finished treatment with ceftriaxone
AIYANA likely cardiorenal. Creatinine improving
Recent syncopal episode
-Patient with threat monitoring analyst prescribed by [facility] Cardiology
Bilateral lower extremity lymphedema with traumatic injuries
-Outpatient follow-up with lymphedema clinic
Anxiety/depression
-Outpatient psychiatry follow-up
Persistent atrial fibrillation
-Continue Coumadin, INR daily; 2.3 today
-Continue metoprolol
-Continue digoxin
Aortic stenosis status post TAVR
COPD without exacerbation
-Continue Brovana, Yupelri
monitor
Obstructive sleep apnea
Pulmonary hypertension
Moderate to severe tricuspid regurgitation
Essential hypertension
DM2 without hyperglycemia -hemoglobin A1c 7.4%.
-Hold metformin
-Continue Jardiance
Hyperlipidemia
-Continue statin
Anxiety
-Continue temazepam, duloxetine
Raynaud's
Meningioma
Morbid obesity due to excess calories -weight loss encouraged.
Hyperlipidemia
History of right posterior CVA
History of right parietal meningioma
-Following with Dr. Love
Presumed restless legs
-Continue ropinirole, gabapentin
Stage 3 right buttock pressure injury, POA.
Full code
PT rec SNF
Discussed with spouse on multiple occasion, patient is to remain compliant with noninvasive ventilator
I spent a total of 52 minutes with the patient or on the floor. More than 50% of this time involved counseling and coordination of care.
Anticipated Discharge: > 48 hours
Subjective/Interval History
-
Date of Service: July 30, 2024
Denies chest pain
Objective Data
-
Labs:
Laboratory Results
07/30/24
04:51
WBC 6.7
Hgb 16.8 H
Hct 52.1 H
Plt Count 205
PT 25.5 H
INR 2.32
Sodium 140
Potassium 3.1 L
Chloride 88 L
Carbon Dioxide 40 H
BUN 32 H
Creatinine 0.9
Glucose 139 H
Calcium 9.5
Total Bilirubin 2.8 H
AST 45 H
ALT 29
Alkaline Phosphatase 321 H
Vital Signs:
Vital Signs
Temp Pulse Resp BP Pulse Ox
97.6 F 88 22 102/71 91
07/30/24 07:25 07/30/24 11:29 07/30/24 11:29 07/30/24 08:59 07/30/24 11:29
I&O
07/29/24 07/30/24 07/31/24
06:59 06:59 06:59
Intake Total 480 / 480 480 / 480 300 / 300
Output Total 4600 / 4600 2910 / 2910 550 / 550
Balance -4120 / -4120 -2430 / -2430 -250 / -250
[2024-07-30 12:26] LABS: Glucose - Point of Care 140 mg/dl (70-99)
--- NOTE | 2024-07-30 13:07 | W.PN.CARDCBS ---
Today's Communication / Plan
-
Continue IV Bumex diuresis.
Replete potassium
Impression / Plan
-
.
Primary Cement Or Concrete Finishing Supervisor: Dr. CHAVA Alejandro
Impression:
Admitted with confusion/metabolic encephalopathy 07/20/24
Acute on chronic hypoxemic respiratory failure
Acute on chronic HFpEF
Hypokalemia
AIYANA
Admission to [facility] for syncope vs fall 07/10-07/11/24
LE wounds
Persistent AFib,
Chronic Coumadin therapy, managed by cardiology
NSVT, 07/21/24
Essential HTN
DM2
h/o TAVR 2021
Severe pulm HTN
COPD, chronically on 3L NC
h/o R post CVA
h/o R parietal meningioma
CHAS: intolerant of CPAP
Hyperlipidemia
Morbid obesity
Chronic lymphedema
History of PE
Uncharacterized liver lesion
Subclinical hyperthyroidism
History of gastric bypass
Depression/anxiety/insomnia with history of serotonin syndrome admission 03/2024
Polypharmacy
History of falls
Echo 07/10/2024: EF 70 to 75%, evidence of RV pressure and volume overload, mild concentric LVH, MAC, mild MS with peak/mean gradients 9/5 mmHg, trace MR, number 29 mm Medtronic evolute TAVR with peak/mean gradient 6/3 mmHg, moderate to severe TR,
PAP 79 mmHg, severely dilated right heart, no significant change compared to prior
Echo 07/21/24:EF 70-75%, dilated RV with RV hypokinesis, mean mitral gradient 5, mild MR, status post Evolut transcatheter aortic valve with mean gradient of 6 and no AI, moderate TR with PA pressure 73
Plan:
Wt continues to improve. Over 1400 cc negative
Cont IV Bumex 3 mg IV BID, eventual change to oral diuretic possibly next 24-48 hrs, dry wt unclear.
Will hold off on additional Metolazone for now given significant recurrent hypokalemia
Cont Is and Os and daily wts. cr stable.
Replete potassium as needed. Received 60 meq this AM as per nursing.
Known persistent atrial fibrillation, heart rate control with Toprol XL and digoxin. Digoxin level has been stable.
Continue Coumadin.
Cont GDMT
ACEI/ARB/Arni/aldosterone antagonist prior to admission stopped due to hypotension.
No further NSVT
He has preserved with TAVR mean gradient 6 mmHg and no AI by echo July 21, 2024 EF 70-75%
Additional hx:
-patient's reported that the patient was not using nebulizers or her vest therapy at home for weeks prior to admission, she is also inconsistent with noninvasive mechanical ventilator at home that she is supposed to use at .
-Cont Toprol XL 50 mg BID. Dose was briefly increased this admission for NSVT, but then developed hypotension.
-Outpatient dose of Jardiance 10 mg daily was transition to Farxiga 10 mg daily due to formulary changes at , but should resume Jardiance upon D/C to home
- HR controlled with Toprol-XL and chronic outpatient dose of digoxin 125 mcg SuTuThSa. Digoxin level 0.5 on 07/20/2024
-Patient is chronically on warfarin with INR goal of 2-3 as managed by cardiology. Patient uses a home monitor. Outpatient dose of warfarin 2 mg daily is ordered.
Discussed with nursing.
Progress Note - Cement Or Concrete Finishing Supervisor
Subjective
Date of Service: July 30, 2024
Patient seen and examined. No chest pain. Breathing better
Objective
Labs:
07/30/24 04:51
07/30/24 04:51
Labs
Hgb 16.8 g/dL (12.0-16.0) H 07/30/24 04:51
Hct 52.1 % (37.0-47.0) H 07/30/24 04:51
Plt Count 205 10^3/uL (130-400) 07/30/24 04:51
PT 25.5 Sec (11.4-14.6) H 07/30/24 04:51
INR 2.32 07/30/24 04:51
Sodium 140 mmol/L (135-145) 07/30/24 04:51
Potassium 3.1 mmol/L (3.5-5.1) L 07/30/24 04:51
BUN 32 mg/dl (7-17) H 07/30/24 04:51
Creatinine 0.9 mg/dL (0.6-1.0) 07/30/24 04:51
Glucose 139 mg/dl (70-99) H 07/30/24 04:51
Digoxin 0.5 ng/ml (0.8-2.0) L 07/20/24 11:55
Vital Signs and I&O:
Vital Signs
Temp Pulse Resp BP Pulse Ox
98.1 F 88 22 102/71 91
07/30/24 11:56 07/30/24 11:29 07/30/24 11:29 07/30/24 08:59 07/30/24 11:29
Vital Signs
Temp Pulse Resp BP Pulse Ox
98.1 F 88 22 102/71 91
07/30/24 11:56 07/30/24 11:29 07/30/24 11:29 07/30/24 08:59 07/30/24 11:29
Intake & Output
07/28/24 07/29/24 07/30/24 07/31/24
06:59 06:59 06:59 06:59
Intake Total 840 / 840 480 / 480 480 / 480 300 / 300
Output Total 1750 / 1750 4600 / 4600 2910 / 2910 550 / 550
Balance -910 / -910 -4120 / -4120 -2430 / -2430 -250 / -250
Physical Exam
Physical Exam
General: No acute distress, AAOX3
Neck: Negative JVD
Heart: Regular, Negative S3 positive S1/S2, Negative S4, No murmur
Lungs: CTA b/l, negative wheezes/rales/rhonchi
Abd: Super morbid obesity positive BS, NT/ND, neg rebound/rigidity/guarding
Ext: Negative cyanosis/clubbing. +1 bilateral edema
Neuro: nonfocal
--- NOTE | 2024-07-30 16:25 | W.PN.PUL3 ---
Today's Communication / Plan
-
Believe that her SOB/hypoxia is mainly due to untreated PH --> recommend a right heart cath
RHC would allow us to view her mPAP but more importantly her transpulmonary gradient and PVR, and if PCWP relatively low then would start her on combination therapy given her class III/IV symptoms right now
Continue IV diuresis for now
Continue nebulizer therapy
Antibiotics for her UTI
Incentive spirometer
Noninvasive mechanical ventilator as able-she has her home machine that she is encouraged to use nightly
Increase activity as tolerated
Wean supplemental oxygen as tolerated with goal SpO2 89-95%
Pulmonary service will continue to follow along
Assessment
-
Patient is a 68 year old F with PMHx of COPD, HTN, HLD, anxiety, CHAS intolerant to CPAP, s/p TAVR, Afib on coumadin, pulmonary HTN, chronic hypoxic/hypercapnic respiratory failure on 3L home O2, HFpEF -in the hospital in early May with acute
hypoxemic respiratory failure due to heart failure and responded to diuresis. Back with hypoxemia, increased proBNP and possibly volume overload. Despite diuresis remains on mid flow oxygen. I was consulted on 07/25/2024 for evaluation of
persistent hypoxemia despite diuresis.
Acute on chronic hypoxemic respiratory failure usually on 3 L supplemental oxygen ATC
Acute HFpEF exacerbation with severely dilated and hypokinetic RV seen on TTE from 07/21/2024
Valvular heart disease with mild MS, mild MR, moderate TR with severe pulmonary hypertension with PASP 73 mmHg - per TTE from 07/21/2024
Chronic pulmonary hypertension: Multiple mechanisms: Cardiac disease/underlying sleep disorder-obstructive sleep apnea/chronic hypercapnic respiratory failure/underlying pulmonary disease.
Intolerant to CPAP/BiPAP
History of medical noncompliance
UTI due to E. coli
Chronic conditions DIRECTOR OF ANALYTICAL DEVELOPMENT:
Admission to [facility] 05/2024 with acute/chronic heart failure.
Reported history of COPD/asthma, follows with Russ Smith
Atrial flutter with RVR (new onset)
Mild�moderate pulmonary hypertension with PASP 45�50 assuming an RAP of 15 mmHg
Severe CHAS intolerant to CPAP (per patient) with secondary polycythemia (initial Hb 18.5 on 01/19/2024)
Suspected OHS
Morbid obesity, BMI 48
Hypertension
Hyperlipidemia
DM type II
Aortic stenosis s/p TAVR
Anxiety
History of CVA
Former tobacco smoker (quit 1999)
Plan:
-
She is continuing to improve, now down to 4-6 L/min nasal cannula, as she was as high as 12 L/min via mid flow on 07/25/2024 Reasons for hypoxemia-likely PH, volume overload, subsegmental atelectasis, obesity. Immobility.
Pulmonary consulted for evaluation of persistent hypoxemia on 07/24/2024.
I do believe that the majority of her shortness of breath is due to untreated severe pulmonary hypertension, as her RV and RA are very large on the CTA chest from 07/24/2024, and there was only mild interstitial pulmonary edema, and echo from
07/21/2024 showed evidence of systolic and diastolic septal flattening consistent with RV pressure and volume overload besides all this she also has a dilated and hypokinetic RV, which is making her right-sided pulm function worse, thus making her
shortness of breath and hypoxia worse
- Would argue that a right heart cath is needed, as if the TPG and PVR are high with a relatively low wedge, then perhaps we should start her on sildenafil, and she possibly may need dual therapy depending on her RHC #'s --> this will need to be
discussed with cardiology
-
Patient known to our service from prior admission-usually follows up with outside pulmonary for COPD/asthma/obstructive sleep apnea possibly obesity hypoventilation syndrome that is untreated/pulmonary hypertension due to above.
reports that patient has not been using her nebulizers or her vest therapy at home for weeks. She does have history of chronic coughing and phlegm production-poor compliance.
She has a noninvasive mechanical ventilator at home that she is supposed to use at night but she is not consistent. She has a nasal mask.
-
Continue to wean down supplemental O2 to keep SpO2 89-95%
Not bronchospastic on exam
Comfortably sitting up in chair-encourage increased activity.
-
There is no evidence for pneumonia or interstitial lung disease.
No evidence for significant emphysema.
No evidence for pulmonary embolism patient on anticoagulation as well.
Her RA and RV are very large, and echo shows pressure and volume overload with a dysfunctional RV. I believe if we off-load her RV with pulmonary vasodilators and lower the PVR that she would get more CO from her RV and this would help her feel
better and likely reduce her O2 needs
-
COPD/asthma: Not bronchospastic on exam.
Bilateral rales on exam-good air movement: Not bronchospastic.
No indication for systemic corticosteroids.
Not impressive for significant acute exacerbation of asthma/COPD.
Patient has not been using nebulizer therapy at home for weeks per .
-
Continue Pulmicort/DuoNebs. Hold inhalers
Acapella device also will be started. She usually uses vest therapy at home but she does not like it and has not been using for several weeks.
-
Yupelri/Aformoterol/budesonide in the outpatient setting(restart upon discharge)
Patient reports difficulty expectorating: She has percussion therapy at home. vest therapy, patient benefited from this during our last visit- she does not like it. She states that she has a chronic cough at home-uses Acapella device
-
Immobility/subsegmental atelectasis also likely contributing to her SOB/Hypoxia
Patient is mainly sedentary at home
Incentive spirometry encouraged.
Hopefully we can start mobilizing her
PT/OT recommended
-
Untreated sleep disorder and alveolar hypoventilation
Patient has chronic hypercapnic respiratory failure: Due to severe obstructive sleep apnea as well as likely obesity hypoventilation syndrome.
Intolerant to noninvasive mechanical ventilation in the past.
This will explain her worsening pulmonary hypertension.
Patient is aware/ is aware
Noninvasive mechanical ventilator was arranged last visit and she received that at home. She has not been consistent with usage per .
-
Noninvasive mechanical ventilation-patient's machine will continue at night and with naps as tolerated. Compliance is poor, usage was encouraged.
She has been explained in the past that lack of usage of noninvasive mechanical ventilation will increase risk of readmission, and progressive pulmonary hypertension.
Avoid sedative.
Patient has her home unit that she has at bedside that she is encouraged to use nightly
-
Cardiology correspondence reviewed.
Continue IV Bumex; she is s/p metolazone on 07/27 + 07/28
Monitor electrolytes and creatinine-currently tolerating with normal creatinine.
Weight is trending lower.
Creatinine holding, although slightly higher on 07/30
-
If there is no significant improvement on hypoxemia despite aggressive diuresis, right heart catheterization will be needed - this has been contemplated in the past.
Follow daily weights; trend BNP
-
History of CVA, CT head showing meningioma-neurologically intact
-
DVT prophylaxis-on warfarin, goal INR 2-[address] Maharaj updated at the bedside 07/25/2024, 07/27/2023, 07/28/2023 and discussed the possibility of addressing CODE STATUS as the patient has recurrent admissions for similar situations. Has not been compliant at home.
She ultimately will follow-up with her private wood fuel pelletizer, Dr. Smith.
Will follow

Diagnostic Data
CXR 01/19/24- Mild pulmonary edema. No definite pleural effusion.
-
CT chest 07/24/2024: Reviewed
Negative for pulmonary embolism.
Enlargement of the main pulmonary artery as well as the right ventricle and right atrium. TAVR in place. Small bilateral pleural effusions, left greater than right. Mild peripheral increase interstitial markings suggestive of interstitial
pulmonary edema.
-
CTA Chest 01/19/2024: No evidence of pulmonary embolism or active pulmonary process. Bilateral hilar lymphadenopathy. It is difficult to evaluate for hilar lymphadenopathy on the previous CT from 09/09/2022 given the absence of intravenous contrast on
this exam. Mediastinal lymphadenopathy is unchanged. Dilated pulmonary arterial system which can be seen in the setting of pulmonary arterial hypertension.
CT Head 03/03/24- 1). There are no acute intracranial abnormalities
2). Old 6.5 cm right occipital infarct
3). 2.8 cm meningioma over the anterolateral right parietal convexity
Echocardiogram 07/21/2024: Reviewed
Normal LVEF.
Mild LVH.
Flattened septum in systole and diastole consistent with RV pressure and volume overload.
Left ventricular ejection fraction 70 to 75%.
Severely dilated and hypokinetic right ventricle.
Moderately dilated left atrium
Severely dilated right atrium
Mitral stenosis-mild.
Mild MR.
Moderate TR. Estimated pulmonary pressure 73 mmHg.
Compared to 07/10/2024-mitral gradient is increased 12/5 from 9/. Aortic gradient is increased 12/6 from /. No other significant changes
ECHO 01/19/24- Hyperdynamic left ventricular systolic function. LV ejection fraction is 70- 75%. Mild mitral stenosis. s/p TAVR 29 mm Medtronic Evolut. Peak/mean gradients across the aortic valve are 8/5 mmHg. No aortic regurgitation. Enlarged right
ventricular size. Reduced right ventricular systolic function. Septal flattening in systole and diastole consistent with RV pressure and volume overload. Mild tricuspid regurgitation. Moderately elevated PASP. Estimated pulmonary artery pressure of
45-50 mmHg assuming a right atrial pressure of 15 mmHg. Compared to 05/01/22: RV dysfunction is now present. PASP was unable to be measured on prior study.
Reports and relevant images were personally reviewed.
Total time spent today was 51 minutes for this encounter. Time includes reviewing laboratory test/imaging results, reviewing pertinent medical records, obtaining and reviewing medical history, performing an appropriate exam, ordering medications,
tests and procedures. Time also includes documentation of this encounter, coordinating patient care and communicating with other healthcare professionals. Total time does not include separately billed tests performed on this date of service.
Subjective Data
-
Date of Service:
Date of Service: July 30, 2024
Chief Complaint: Pulmonary Follow Up (Acute on chronic hypoxemic and hypercapnic respiratory failure)
Subjective:
Patient was seen and evaluated today at bedside. Currently on 6 L/min nasal cannula with heart rate 90 and BP 96/55. Still short of breath with exertion, denies cough. She is sitting in a chair no acute distress. Patient's , Jamaal, is at
bedside and all questions were answered. Patient denies ROOT, nausea, fevers or chills currently.
Review of Systems
General: Other (Negative unless mentioned above)
Objective Data
Data Reviewed
Vital Signs / I&O / Oxygen:
Vital Signs
Temp Pulse Resp BP Pulse Ox
97.6 F 91 20 102/71 93
07/30/24 07:25 07/30/24 08:59 07/30/24 07:46 07/30/24 08:59 07/30/24 07:46
Intake and Output
07/29/24 07/30/24 07/31/24
06:59 06:59 06:59
Intake Total 480 / 480 480 / 480
Output Total 4600 / 4600 2910 / 2910
Balance -4120 / -4120 -2430 / -2430
SaO2 93
Nasal Cannula flow liters per 6
minute
Physical Exam
General: Respiratory Distress (negative), Comfortable, Chills (negative) and Sweats (negative)
HEENT: Normocephalic, Anicteric and Other (Thick neck)
Cardiovascular: S1-S2, Rub (negative) and Peripheral Edema (+2 lower extremity edema bilaterally)
Respiratory: Wheeze (negative), Crackles (Bibasilar), Rhonchi (negative) and Non-Labored Respirations
GI: Soft, Distended (Abdominal obesity), Non Tender and Normal Bowel Sounds
Neurology: AO x 3 and Tremors (negative)
Skin: Warm, Dry, Other (Chronic acrocyanosis on the lower extremities) and Other (Lower extremity with venous stasis changes)
Labs/Micro/Reports
Lab Data
07/30/24 04:51
07/30/24 04:51
Laboratory Results
07/30/24
04:51
PT 25.5 H
INR 2.32
[2024-07-30 17:28] LABS: Glucose - Point of Care 176 mg/dl (70-99)
[2024-07-30] MEDS: NOVOLOG FLEXPEN-LOW RESISTANCE 1 UNITS SC (18:00)
[2024-07-30] MEDS: COUMADIN 2 MG PO (18:01)
[2024-07-30 21:42] LABS: Glucose - Point of Care 163 mg/dl (70-99)
[2024-07-30] MEDS: RESTORIL 15 MG PO (21:56)
[2024-07-30] MEDS: REQUIP 0.25 MG PO (21:56)
--- NOTE | 2024-07-30 22:22 | RESPNOTE ---
pt required help placing self on home CPAP machine
--- NOTE | 2024-07-30 22:31 | PTCARENOTE ---
Patient tolerated her home cpap for less than one hour. She took it off and is refusing it, saying 'its too much'. RT aware. [facility] Sp[facility] 90-97
[2024-07-31] VITALS (19 sets, daily range): BP systolic 79–115; BP diastolic 48–85; PULSE 87; O2SAT 94; BMI 45.4
[2024-07-31 04:44] LABS: Hematocrit 49.7 % (37.0-47.0); Hemoglobin 16.3 g/dL (12.0-16.0); Mean Corp Hgb Conc. 32.8 g/dL (33.0-37.0); Mean Corpuscular Hgb 33.4 pg (27.0-31.0); Mean Corpuscular Volume 101.8 fL (81.0-99.0); Platelet Count 192 10^3/uL (130-400); Red Blood Cell Count 4.88 10^6/uL (4.20-5.40); Red Cell Dist. Width 16.7 % (11.5-14.5); White Blood Cell Count 6.9 10^3/uL (4.8-10.8)
[2024-07-31 04:59] LABS: INR 2.04; PT 23.1 Sec (11.4-14.6)
[2024-07-31 05:16] LABS: ALT (SGPT) 29 U/L (0-35); AST (SGOT) 47 U/L (14-36); Albumin 3.5 g/dl (3.5-5.0); Alkaline Phosphatase 305 U/L (38-126); Blood Urea Nitrogen 34 mg/dl (7-17); Calcium 9.3 mg/dl (8.4-10.2); Chloride 88 mmol/L (98-107); Estimated Creatinine Clearance 80 ml/min; Glucose 138 mg/dl (70-99); Magnesium 2.2 mg/dl (1.6-2.3); Sodium 137 mmol/L (135-145); Total Bilirubin 2.6 mg/dl (0.2-1.3); Total Protein 7.2 g/dl (6.3-8.2); eGFR > 60.00
[2024-07-31 05:22] LABS: NT-proBNP 668 pg/ml
[2024-07-31 05:24] LABS: Carbon Dioxide 38 mmol/L (22-30)
[2024-07-31] MEDS: DUONEB 3 ML INH ×2 (07:24→19:23)
[2024-07-31] MEDS: PULMICORT 0.5 MG INH ×2 (07:24→19:23)
[2024-07-31] MEDS: HYDROPHOR 1 APPLIC TOPICAL (08:23)
[2024-07-31] MEDS: DESENEX/MITRAZOL/ZEASORB 1 APPLIC TOPICAL ×2 (08:23→21:00)
[2024-07-31] MEDS: CYMBALTA DELAYED RELEASE 60 MG PO (08:24)
[2024-07-31] MEDS: FARXIGA 10 MG PO (08:24)
[2024-07-31] MEDS: OSCAL 500 + D 500 MG PO (08:24)
[2024-07-31] MEDS: NEURONTIN 300 MG PO ×3 (08:24→21:00)
[2024-07-31] MEDS: VITAMIN B-12 2500 MCG PO (08:24)
[2024-07-31] MEDS: TOPROL XL 50 MG PO ×2 (08:25→21:00)
[2024-07-31] MEDS: LIPITOR 10 MG PO (08:25)
[2024-07-31] MEDS: THERAGRAN 1 TABLET PO (08:25)
[2024-07-31] MEDS: BUMEX 3 MG IV ×2 (08:26→17:15)
[2024-07-31] MEDS: KCL 20 MEQ PO (08:26)
--- NOTE | 2024-07-31 09:08 | W.PN.HOSP.TC ---
Today's Communication/Plan
-
cont diuresis
cardio for further plans
MRI abd
Assessment / Plan
Assessment / Plan
68yo F with PMHx of Afib, asthma, chronic hypoxic respiratory failure on 3L home O2, Hx of CVA, GERD, HTN, HLD, DM, anxiety d/o, CHAS on CPAP (non-compliant), TAVR on coumadin, R parietal meningioma, HX of PE admitted with AMS, managed for CHF
exacerbation and possible UTI
A/P:
#Acute metabolic encephalopathy 2/2 acute on chronic hypoxic hypercarbic respiratory failure 2/2 HFpEF exacerbation
#Pulmonary HTN
#CHAS on CPAP
#Asthma/COPD not in exacerbation
Bronchodilators
Diuretics, daily weight, follow electrolytes
Pulmonology and Cardiology follows
Possible plan for RH cath
CT showed no pulmonary embolizm, but suggest pulmonary hypertension and elevated right heart pressures
WEan off O2 to home level of 3L
#Hypokalemia
replete and follow
#E.coli UTI
completed ceftriaxone
#AIYANA
cardirenal
resolved
#Hx of syncope
on front desk monitor by DCA
#Liver lesion seen on CT in Mar 2024
#Elvated Alk.[email or web address]
#Transaminitis
#Direct bilirubinemia
No RUQ pain
Since Mar 2024
MR abd
#DM type 2 with neuropathy
Accuchecks, Insulin SS, DM diet
#Anxiety/depression
#Permanent Afib
#Essential HTN
#HLD
#Raynaulds
#Hx of meningioma
#RLS
cont home meds
#Stage 3 R buttocks pressure injury
Wound care
offloading
#Morbid obesity
BMI 45.4
decrease calorie intake
DVT ppx coumadin
Full code
I have spent at least 58min reviewing chart, test results, communication with consultants and providing direct patient care
Anticipated Discharge: > 48 hours
Subjective/Interval History
-
Date of Service: July 31, 2024
Objective Data
-
Labs:
Laboratory Results
07/31/24
04:04
WBC 6.9
Hgb 16.3 H
Hct 49.7 H
Plt Count 192
PT 23.1 H
INR 2.04
Sodium 137
Potassium 3.0 L
Chloride 88 L
Carbon Dioxide 38 H
BUN 34 H
Creatinine 0.8
Glucose 138 H
Calcium 9.3
Total Bilirubin 2.6 H
AST 47 H
ALT 29
Alkaline Phosphatase 305 H
Vital Signs:
Vital Signs
Temp Pulse Resp BP Pulse Ox
97.5 F 91 19 96/48 93
07/31/24 03:14 07/31/24 08:00 07/31/24 08:00 07/31/24 08:00 07/31/24 08:00
I&O
07/30/24 07/31/24 08/01/24
06:59 06:59 06:59
Intake Total 480 / 480 300 / 300
Output Total 2910 / 2910 3300 / 3300
Balance -2430 / -2430 -3000 / -3000
Review of Systems
-
History Source: Patient
All other systems: Reviewed and negative
Physical Exam
-
General: No Apparent Distress and Obese
HEENT: Normocephalic
Respiratory: Clear to Auscultation
Cardiac: Irregular Rhythm
GI: Soft, Nontender and Nondistended
Musculoskeletal: Edema, Right Lower Extrem and Edema, Left Lower Extrem
Skin: Warm
Neuro: Awake, Alert, Oriented and AO x 3
Psych: Calm
[2024-07-31] MEDS: NOVOLOG FLEXPEN-LOW RESISTANCE SC ×2 (10:15→16:51)
[2024-07-31 10:25] LABS: Glucose - Point of Care 111 mg/dl (70-99)
[2024-07-31] MEDS: KCL 270 MEQ IV (10:26)
[2024-07-31] MEDS: STERILE WATER FOR INJECTION 10 ML IV (10:31)
[2024-07-31] MEDS: ROCEPHIN 1000 MG IV (10:31)
[2024-07-31] MEDS: DUONEB INH ×2 (11:25→16:21)
[2024-07-31 13:05] LABS: Glucose - Point of Care 180 mg/dl (70-99)
--- NOTE | 2024-07-31 13:10 | W.PN.CARDCBS ---
Addendum entered and electronically signed by Froylan Mercado DO 07/31/24 13:22:
I saw and examined the patient.
The Spinner Frame's note was reviewed and I agree with the note.
Comment:
Discussed with pulmonary regarding concern for hypoxia being mainly related to untreated pulmonary hypertension and that RHC is recommended for both diagnosis and treatment.
RHC was discussed with pt and and they agree and pt will be scheduled for this today.
Her wt is down 25 lbs this admission with Bumex 3 mg IV BID. Patient was taking torsemide 40 mg PO BID prior to admission and despite diuresis patient continues to require oxygen at 8 L NC which is higher than her outpatient requirement of 3 L NC
-Cre 0.8 07/31/24, but as high as 1.3 on admission
Replete potassium as needed
Will hold off on additional Metolazone for now given significant recurrent hypokalemia
Cont Is and Os and daily wts. cr stable.
Known persistent atrial fibrillation, heart rate control with Toprol XL and digoxin. Digoxin level has been stable.
Continue Coumadin.
Cont GDMT
ACEI/ARB/Arni/aldosterone antagonist prior to admission stopped due to hypotension.
No further NSVT
He has preserved with TAVR mean gradient 6 mmHg and no AI by echo July 21, 2024 EF 70-75%
Additional hx:
-patient's reported that the patient was not using nebulizers or her vest therapy at home for weeks prior to admission, she is also inconsistent with noninvasive mechanical ventilator at home that she is supposed to use at .
-Cont Toprol XL 50 mg BID. Dose was briefly increased this admission for NSVT, but then developed hypotension.
-Outpatient dose of Jardiance 10 mg daily was transition to Farxiga 10 mg daily due to formulary changes at , but should resume Jardiance upon D/C to home
- HR controlled with Toprol-XL and chronic outpatient dose of digoxin 125 mcg SuTuThSa. Digoxin level 0.5 on 07/20/2024
-Patient is chronically on warfarin with INR goal of 2-3 as managed by cardiology. Patient uses a home monitor. Outpatient dose of warfarin 2 mg daily is ordered.
Original Note:
Today's Communication / Plan
-
Talked with patient and then with and they are both agreeable to RHC today, added to Music Video Producer schedule
Impression / Plan
-
Primary Straight Slicing Machine Operator: Dr. CHAVA Alejandro
Impression:
Admitted with confusion/metabolic encephalopathy 07/20/24
Acute on chronic hypoxemic respiratory failure
Acute on chronic HFpEF
Hypokalemia
AIYANA
Admission to [facility] for syncope vs fall 07/10-07/11/24
LE wounds
Persistent AFib,
Chronic Coumadin therapy, managed by cardiology
NSVT, 07/21/24
Essential HTN
DM2
h/o TAVR 2021
Severe pulm HTN
COPD, chronically on 3L NC
h/o R post CVA
h/o R parietal meningioma
CHAS: intolerant of CPAP
Hyperlipidemia
Morbid obesity
Chronic lymphedema
History of PE
Uncharacterized liver lesion
Subclinical hyperthyroidism
History of gastric bypass
Depression/anxiety/insomnia with history of serotonin syndrome admission 03/2024
Polypharmacy
History of falls
Echo 07/10/2024: EF 70 to 75%, evidence of RV pressure and volume overload, mild concentric LVH, MAC, mild MS with peak/mean gradients 9/5 mmHg, trace MR, number 29 mm Medtronic Evolut TAVR with peak/mean gradient 6/3 mmHg, moderate to severe TR, PAP
79 mmHg, severely dilated right heart, no significant change compared to prior
Echo 07/21/24:EF 70-75%, dilated RV with RV hypokinesis, mean mitral gradient 5, mild MR, status post Evolut transcatheter aortic valve with mean gradient of 6 and no AI, moderate TR with PA pressure 73
Plan:
-Pulmonology note reviewed and they suspect that hypoxia is mainly due to untreated pulmonary hypertension and so RHC was recommended. I reviewed RHC with patient on 07/31/2024 and she asked that I call her . Called patient's on
07/31/2024 and we reviewed RHC for 11 minutes and he is agreeable, plan is for RHC on 07/31/2024.
-Weight down 25 lbs this admission with Bumex 3 mg IV BID. Patient was taking torsemide 40 mg PO BID prior to admission and despite diuresis patient continues to require oxygen at 8 L NC which is higher than her outpatient requirement of 3 L NC
-Cre 0.8 07/31/24, but as high as 1.3 on admission
-EF 70-75% by echo 07/21/24 and TAVR mean gradient 6 mmHg without any AI
-Patient was taking Toprol XL 50 mg BID prior to admission, but dose increased following episode of NSVT. Now with intermittent daytime hypotension and dose decreased to 50 mg daily
-Outpatient dose of Jardiance 10 mg daily was transition to Farxiga 10 mg daily due to formulary changes at , but should resume Jardiance upon D/C to home
-Patient was not taking VIVEK/ARB/ARNI/aldosterone antagonist prior to admission due to hypotension. Previous episode of hypotension and syncope with spironolactone on 07/12/2024
-She did have an episode of NSVT 07/21/24, no further VT.
-Patient with known persistent A-fib. HR controlled with Toprol-XL and chronic outpatient dose of digoxin 125 mcg SuTuThSa. Digoxin level 0.5 on 07/20/2024
-Patient is chronically on warfarin with INR goal of 2-3 as managed by cardiology. Patient uses a home monitor. INR 2.44 on 07/26/24
Progress Note - Straight Slicing Machine Operator
Subjective
Date of Service: July 31, 2024
She thinks she is a bit better, can lay almost flat, but more comfortable sitting up
Objective
Labs:
07/31/24 04:04
07/31/24 04:04
Labs
Hgb 16.3 g/dL (12.0-16.0) H 07/31/24 04:04
Hct 49.7 % (37.0-47.0) H 07/31/24 04:04
Plt Count 192 10^3/uL (130-400) 07/31/24 04:04
PT 23.1 Sec (11.4-14.6) H 07/31/24 04:04
INR 2.04 07/31/24 04:04
Sodium 137 mmol/L (135-145) 07/31/24 04:04
Potassium 3.0 mmol/L (3.5-5.1) L 07/31/24 04:04
BUN 34 mg/dl (7-17) H 07/31/24 04:04
Creatinine 0.8 mg/dL (0.6-1.0) 07/31/24 04:04
Glucose 138 mg/dl (70-99) H 07/31/24 04:04
Digoxin 0.5 ng/ml (0.8-2.0) L 07/20/24 11:55
Vital Signs and I&O:
Vital Signs
Temp Pulse Resp BP Pulse Ox
97.7 F 91 19 96/48 92
07/31/24 07:05 07/31/24 08:00 07/31/24 08:00 07/31/24 08:00 07/31/24 08:51
Vital Signs
Temp Pulse Resp BP Pulse Ox
97.7 F 91 19 96/48 92
07/31/24 07:05 07/31/24 08:00 07/31/24 08:00 07/31/24 08:00 07/31/24 08:51
Intake & Output
07/29/24 07/30/24 07/31/24 08/01/24
06:59 06:59 06:59 06:59
Intake Total 480 / 480 480 / 480 300 / 300 240 / 240
Output Total 4600 / 4600 2910 / 2910 3300 / 3300 600 / 600
Balance -4120 / -4120 -2430 / -2430 -3000 / -3000 -360 / -360
Physical Exam
Physical Exam
GEN: NAD
HEENT: MMM
LUNGS: 8 L NC, no audible wheeze
CV: Afib on tele
EXT: +1 B/L LE edema
NEURO: Gross non-focal
SKIN: No rash
[2024-07-31] MEDS: NOVOLOG FLEXPEN-LOW RESISTANCE 1 UNITS SC (13:51)
--- NOTE | 2024-07-31 14:38 | PTCARENOTE ---
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 Report to receiving RN. To mineral ore processing labourer via bed with CL RN's.
--- NOTE | 2024-07-31 14:42 | W.PN.UPDATE ---
Update Note
Progress Note Update
Will defer MRI abd until O2 requirements return to baseline
--- NOTE | 2024-07-31 15:16 | CM ---
CM reviewed chart, patient for RHC today. Will continue to follow for all discharge planning needs.
Plan; referral to Mariama Auguste previously placed, will update on discharge status.
--- NOTE | 2024-07-31 15:39 | ITS.CL.CATH ---
Geoscientist - Catheterization
Cardiac Catheterization
Procedure Report:
RIGHT HEART CATHETERIZATION
Date of Procedure: July 31, 2024
Referring: Dr. Froylan Mercado
INDICATION: Hypoxia and shortness of breath
Hemodynamics (mmHg):
RA (m) : 21
RV (s/d,m) : 76/10, 18
PA (s/d, m) : 76/33, 48
PCWP (m) : 38
Cardiac Output : 2.9 L/min
Cardiac Index : 1.4 L/min/m-2
Systemic vascular resistance: 21 Wood units or 1684 [id number](-5)
Pulmonary vascular resistance: 3.5 Wood units or 281 [id number]-[id number](-5)
RADIATION SUMMARY: Fluoro Time (min): 1.4, Dose (mGy): 23, DAP (Gy.cm2) : 2.7
CONCLUSION:
1. Elevated right and left ventricular filling pressures
Copy to: Dr. Froylan Mercado
--- NOTE | 2024-07-31 16:15 | PTCARENOTE ---
Pt returned from mini lab operator. Aox3. Sating low 90's on 10L MFNC. R brachial vein site C/D/I. Site checks per protocol, see intervention. Call avitia within reach. Bed alarm in place for safety.
--- NOTE | 2024-07-31 17:00 | W.PN.PUL3 ---
Today's Communication / Plan
-
-Continue Diuresis and replace K, Mg
-Might need to lower Metoprolol dosing with low CI and need for ongoing diuresis.
Assessment
-
Patient is a 68 year old F with PMHx of COPD, HTN, HLD, anxiety, CHAS intolerant to CPAP, s/p TAVR, Afib on coumadin, pulmonary HTN, chronic hypoxic/hypercapnic respiratory failure on 3L home O2, HFpEF -in the hospital in early May with acute
hypoxemic respiratory failure due to heart failure and responded to diuresis. Back with hypoxemia, increased proBNP and possibly volume overload. Despite diuresis remains on mid flow oxygen. I was consulted on 07/25/2024 for evaluation of
persistent hypoxemia despite diuresis.
Chronic conditions UNIT LEADER:
Admission to [facility] 05/2024 with acute/chronic heart failure.
Reported history of COPD/asthma, follows with Russ Smith
Atrial flutter with RVR (new onset)
Mild�moderate pulmonary hypertension with PASP 45�50 assuming an RAP of 15 mmHg
Severe CHAS intolerant to CPAP (per patient) with secondary polycythemia (initial Hb 18.5 on 01/19/2024)
Suspected OHS
Morbid obesity, BMI 48
Hypertension
Hyperlipidemia
DM type II
Aortic stenosis s/p TAVR
Anxiety
History of CVA
Former tobacco smoker (quit 1999)
Assessment and Plan:
#1. Acute on chronic hypoxemic respiratory failure. Multifactorial. More recent acute worsening due to CHF exacerbation with anasarca.
-Obesity with CHAS, likley OHS also, COPD as well as HFpEF with anasarca, all contributing
#2. Severe Pulmonary HTN, Group II. [facility] 07/31/2024: RA (m) : 21, RV (s/d,m) : 76/10, 18, PA (s/d, m) : 76/33, 48, PCWP (m) : 38, Cardiac Output : 2.9 L/m, Cardiac Index : 1.4 L/min/m-2, PVR 3.5.
-No indication for pulmonary vasodilators as patient still volume overloaded
-Diuresis per Cardiology service, might need to lower Metoprolol with soft Blood pressure
#3. h/o COPD
-Not in acute exacerbation currently. No wheezing on exam.
-Continue Duoneb and Pulmicort. Yupelri/Aformoterol/budesonide in the outpatient setting(restart upon discharge)
-No indication for steroids.
#4. CHAS with suspected OHS
-Encouraged use of nightly AVAPS. Home setting Tidal volume 300, IPAP/EPAP 15-5. Patient has not been using it regularly at home
-Check VBG in AM
Patient reports difficulty expectorating: She has percussion therapy at home. vest therapy, patient benefited from this during our last visit- she does not like it. She states that she has a chronic cough at home-uses Acapella device
-
History of CVA, CT head showing meningioma-neurologically intact
-
DVT prophylaxis-on warfarin, goal INR 2-[address] Maharaj updated at the bedside 07/25/2024, 07/27/2023, 07/28/2023 and discussed the possibility of addressing CODE STATUS as the patient has recurrent admissions for similar situations. Has not been compliant at home.
She ultimately will follow-up with her private passenger service agent, Dr. Smith.
Will follow

Diagnostic Data
CXR 01/19/24- Mild pulmonary edema. No definite pleural effusion.
-
CT chest 07/24/2024: Reviewed
Negative for pulmonary embolism.
Enlargement of the main pulmonary artery as well as the right ventricle and right atrium. TAVR in place. Small bilateral pleural effusions, left greater than right. Mild peripheral increase interstitial markings suggestive of interstitial
pulmonary edema.
-
CTA Chest 01/19/2024: No evidence of pulmonary embolism or active pulmonary process. Bilateral hilar lymphadenopathy. It is difficult to evaluate for hilar lymphadenopathy on the previous CT from 09/09/2022 given the absence of intravenous contrast on
this exam. Mediastinal lymphadenopathy is unchanged. Dilated pulmonary arterial system which can be seen in the setting of pulmonary arterial hypertension.
CT Head 03/03/24- 1). There are no acute intracranial abnormalities
2). Old 6.5 cm right occipital infarct
3). 2.8 cm meningioma over the anterolateral right parietal convexity
Echocardiogram 07/21/2024: Reviewed
Normal LVEF.
Mild LVH.
Flattened septum in systole and diastole consistent with RV pressure and volume overload.
Left ventricular ejection fraction 70 to 75%.
Severely dilated and hypokinetic right ventricle.
Moderately dilated left atrium
Severely dilated right atrium
Mitral stenosis-mild.
Mild MR.
Moderate TR. Estimated pulmonary pressure 73 mmHg.
Compared to 07/10/2024-mitral gradient is increased 12/5 from 9/. Aortic gradient is increased 12/6 from 6/6. No other significant changes
ECHO 01/19/24- Hyperdynamic left ventricular systolic function. LV ejection fraction is 70- 75%. Mild mitral stenosis. s/p TAVR 29 mm Medtronic Evolut. Peak/mean gradients across the aortic valve are 8/5 mmHg. No aortic regurgitation. Enlarged right
ventricular size. Reduced right ventricular systolic function. Septal flattening in systole and diastole consistent with RV pressure and volume overload. Mild tricuspid regurgitation. Moderately elevated PASP. Estimated pulmonary artery pressure of
45-50 mmHg assuming a right atrial pressure of 15 mmHg. Compared to 05/01/22: RV dysfunction is now present. PASP was unable to be measured on prior study.
Reports and relevant images were personally reviewed.
Total time spent today was 32 minutes for this encounter. Time includes reviewing laboratory test/imaging results, reviewing pertinent medical records, obtaining and reviewing medical history, performing an appropriate exam, ordering medications,
tests and procedures. Time also includes documentation of this encounter, coordinating patient care and communicating with other healthcare professionals. Total time does not include separately billed tests performed on this date of service.
Subjective Data
-
Date of Service:
Date of Service: July 31, 2024
Chief Complaint: Pulmonary Follow Up (Acute on chronic hypoxemic and hypercapnic respiratory failure)
Subjective:
Comfortably sitting in bed, no acute distress
Review of Systems
Genitourinary: Other (negative except as stated above )
Objective Data
Data Reviewed
Vital Signs / I&O / Oxygen:
Vital Signs
Temp Pulse Resp BP Pulse Ox
97.7 F 88 19 99/84 92
07/31/24 07:05 07/31/24 14:00 07/31/24 14:00 07/31/24 14:00 07/31/24 14:41
Intake and Output
07/30/24 07/31/24 08/01/24
06:59 06:59 06:59
Intake Total 480 / 480 300 / 300 990 / 990
Output Total 2910 / 2910 3300 / 3300 600 / 600
Balance -2430 / -2430 -3000 / -3000 390 / 390
SaO2 92
Nasal Cannula flow liters per 8
minute
Physical Exam
General: Comfortable
HEENT: Normocephalic
Cardiovascular: S1-S2 and Peripheral Edema
Respiratory: Clear and Non-Labored Respirations
GI: Soft, Distended (Abdominal obesity), Non Tender and Normal Bowel Sounds
Neurology: AO x 3 and Tremors (negative)
Skin: Warm, Dry, Other and Other (Lower extremity with venous stasis changes)
Labs/Micro/Reports
Lab Data
07/31/24 04:04
07/31/24 04:04
Laboratory Results
07/31/24
04:04
PT 23.1 H
INR 2.04
[2024-07-31 17:05] LABS: Glucose - Point of Care 142 mg/dl (70-99)
[2024-07-31] MEDS: COUMADIN 2 MG PO (17:16)
[2024-07-31] MEDS: RESTORIL 15 MG PO (21:03)
[2024-07-31] MEDS: REQUIP 0.25 MG PO (21:03)
[2024-07-31 22:23] LABS: Glucose - Point of Care 211 mg/dl (70-99)
[2024-08-01] VITALS (20 sets, daily range): BP systolic 90–119; BP diastolic 58–86; PULSE 97; BMI 44.8
[2024-08-01 04:38] LABS: Venous Blood Gas B.E. 17.1 mmol/L (-4 to +4); Venous Blood Gas HCO3 45.5 mmol/L (22-27); Venous Blood Gas O2 Sat % 91.4 %; Venous Blood Gas pCO2 64 mmHg (35-48); Venous Blood Gas pH 7.46 (7.32-7.43); Venous Blood Gas pO2 62 mmHg (30-50)
--- NOTE | 2024-08-01 05:10 | PTCARENOTE ---
Caring for pt overnight, aaox3 but very forgetful & confused at times. BA on. Hourly rounds. Remains on 10LMF, desaturation on exertion. Orthopneic. R brachial site CDI & neuro checks WNL despite pt fingers being cyanotic which is her normal. Afib
on monitor. OOB to BSC x1. Q2T. Incontinent most of the time, purewick in place. Will continue to monitor.
[2024-08-01 05:15] LABS: % Basophils 1.7 % (0-2); % Eosinophils 3.5 % (0-6); % Immature Granulocytes 0.3 % (0-0.5); % Lymphocytes 31.6 % (20.5-51.1); % Monocytes 7.6 % (1.7-9.3); % Neutrophils 55.3 % (42.2-75.2); Absolute Basophils 0.1 10^3/uL (0-0.2); Absolute Eosinophils 0.3 10^3/uL (0-0.7); Absolute Lymphocytes 2.3 10^3/uL (1.2-3.4); Absolute Monocytes 0.5 10^3/uL (0.1-0.6); Hematocrit 51.3 % (37.0-47.0); Mean Corp Hgb Conc. 33.1 g/dL (33.0-37.0); Mean Corpuscular Hgb 34.1 pg (27.0-31.0); Mean Corpuscular Volume 102.8 fL (81.0-99.0); Mean Platelet Volume 11.6 fL (7.4-10.4); Nucleated Red Blood Cells % 0 %; Platelet Count 231 10^3/uL (130-400); Red Blood Cell Count 4.99 10^6/uL (4.20-5.40); Red Cell Dist. Width 16.8 % (11.5-14.5); White Blood Cell Count 7.1 10^3/uL (4.8-10.8)
[2024-08-01 05:17] LABS: INR 1.88; PT 21.8 Sec (11.4-14.6)
[2024-08-01 05:32] LABS: ALT (SGPT) 33 U/L (0-35); AST (SGOT) 52 U/L (14-36); Albumin 3.6 g/dl (3.5-5.0); Alkaline Phosphatase 337 U/L (38-126); Blood Urea Nitrogen 29 mg/dl (7-17); Calcium 9.7 mg/dl (8.4-10.2); Chloride 90 mmol/L (98-107); Estimated Creatinine Clearance 80 ml/min; Glucose 133 mg/dl (70-99); Magnesium 2.2 mg/dl (1.6-2.3); Potassium 2.9 mmol/L (3.5-5.1); Sodium 141 mmol/L (135-145); Total Bilirubin 2.9 mg/dl (0.2-1.3); Total Protein 7.6 g/dl (6.3-8.2); eGFR > 60.00
[2024-08-01 05:43] LABS: Carbon Dioxide 35 mmol/L (22-30)
[2024-08-01] MEDS: KCL 270 MEQ IV ×2 (06:16→10:42)
[2024-08-01] MEDS: PULMICORT 0.5 MG INH ×2 (07:32→19:43)
[2024-08-01] MEDS: DUONEB 3 ML INH ×4 (07:32→19:43)
[2024-08-01 07:54] LABS: Glucose - Point of Care 125 mg/dl (70-99)
[2024-08-01] MEDS: NOVOLOG FLEXPEN-LOW RESISTANCE SC (08:34)
[2024-08-01] MEDS: BUMEX 3 MG IV ×2 (08:47→17:09)
[2024-08-01] MEDS: VITAMIN B-12 2500 MCG PO (08:51)
[2024-08-01] MEDS: FLUSH (NSS) 1 FLUSH IV ×3 (08:51→17:10)
[2024-08-01] MEDS: LANOXIN 125 MCG PO (08:52)
[2024-08-01] MEDS: NEURONTIN 300 MG PO ×3 (08:52→19:59)
[2024-08-01] MEDS: OSCAL 500 + D 500 MG PO (08:53)
[2024-08-01] MEDS: TOPROL XL 50 MG PO ×2 (08:53→20:12)
[2024-08-01] MEDS: THERAGRAN 1 TABLET PO (08:53)
[2024-08-01] MEDS: CYMBALTA DELAYED RELEASE 60 MG PO (08:53)
[2024-08-01] MEDS: FARXIGA 10 MG PO (08:53)
[2024-08-01] MEDS: KCL 20 MEQ PO (08:54)
[2024-08-01] MEDS: LIPITOR 10 MG PO (08:54)
--- NOTE | 2024-08-01 09:41 | W.PN.CARDCBS ---
Addendum entered and electronically signed by Froylan Mercado DO 08/01/24 12:04:
I saw and examined the patient.
The Rug Frame Mounter's note was reviewed and I agree with the note.
Comment:
Plan:
RHC showed PCWP was 38 and CI 1.4
Wt continues to come down, almost 30 lbs this admit. Cont Bumex 3 mg IV BID.
deferred further metolazone presently due to recurrent hypokalemia
Replete potassium, increase daily potassium to at least 40 meq PO daily
Pulm not recommending vasodilator therapy at this time as pt remains volume overloaded
Cont Is and Os and daily wts. cr stable.
Known persistent atrial fibrillation, heart rate control with Toprol XL and digoxin. Digoxin level has been stable.
Continue Coumadin.
INR 1.88 on 08/01/24. Warfarin 2 mg daily standing ordered, will increase to 3 mg for 08/01/24.
-INR goal of 2-3 as managed by cardiology as an outpatient using a home monitor.
Cont GDMT
ACEI/ARB/Arni/aldosterone antagonist prior to admission stopped due to hypotension.
He has preserved with TAVR mean gradient 6 mmHg and no AI by echo July 21, 2024 EF 70-75%
Original Note:
Today's Communication / Plan
-
Cont Bumex 3 mg IV BID
Potassium is being supplemented
Impression / Plan
-
PCP: Dr. Sanjay Carrera
Primary Shirt Finisher: Dr. CHAVA Alejandro
Impression:
Admitted with confusion/metabolic encephalopathy 07/20/24
Acute on chronic hypoxemic respiratory failure
Acute on chronic HFpEF
Hypokalemia
AIYANA
Admission to [facility] for syncope vs fall 07/10-07/11/24
LE wounds
Persistent AFib,
Chronic Coumadin therapy, managed by cardiology
NSVT, 07/21/24
Essential HTN
DM2
h/o TAVR 2021
Severe pulm HTN
COPD, chronically on 3L NC
h/o R post CVA
h/o R parietal meningioma
CHAS: intolerant of CPAP
Hyperlipidemia
Morbid obesity
Chronic lymphedema
History of PE
Uncharacterized liver lesion
Subclinical hyperthyroidism
History of gastric bypass
Depression/anxiety/insomnia with history of serotonin syndrome admission 03/2024
Polypharmacy
History of falls
Hypokalemia
Echo 07/10/2024: EF 70 to 75%, evidence of RV pressure and volume overload, mild concentric LVH, MAC, mild MS with peak/mean gradients 9/5 mmHg, trace MR, number 29 mm Medtronic Evolut TAVR with peak/mean gradient 6/3 mmHg, moderate to severe TR, PAP
79 mmHg, severely dilated right heart, no significant change compared to prior
Echo 07/21/24:EF 70-75%, dilated RV with RV hypokinesis, mean mitral gradient 5, mild MR, status post Evolut transcatheter aortic valve with mean gradient of 6 and no AI, moderate TR with PA pressure 73
RIGHT HEART CATHETERIZATION Date of Procedure: 07/31/24
Hemodynamics (mmHg):
RA (m) : 21
RV (s/d,m) : 76/10, 18
PA (s/d, m) : 76/33, 48
PCWP (m) : 38
Cardiac Output : 2.9 L/min
Cardiac Index : 1.4 L/min/m-2
Systemic vascular resistance: 21 Wood units or 1684 [id number]-[id number](-5)
Pulmonary vascular resistance: 3.5 Wood units or 281 [id number]-oqh-sy(-5)
CONCLUSION:
1. Elevated right and left ventricular filling pressures
Plan:
-RHC data noted above, PCWP was 38 and CI 1.4
-Weight is down 4 lbs overnight and 29 lbs overall this admission, cont Bumex 3 mg IV BID. Patient was taking torsemide 40 mg PO BID prior to admission and despite diuresis patient continues to require oxygen at 10 L midflow NC which is higher than
her outpatient requirement of 3 L NC
-Patient responded well to metolazone, but will hold off due to hypokalemia
-Pulmonology note reviewed and no indication for pulmonary vasodilators at this time
-Cre stable at 0.8 on 08/01/24.
-Potassium is down to 2.9 on 08/01/24 labs reviewed by . Denia barrios ordered by hospitalist attending
-GDMT with Toprol XL. No ACEI/ARB/Arni/aldosterone antagonist prior to admission stopped due to hypotension.
-Known persistent atrial fibrillation, heart rate control with Toprol XL and digoxin. Digoxin level has been stable.
-INR 1.88 on 08/01/24. Warfarin 2 mg daily standing ordered, will increase to 3 mg for 08/01/24.
-INR goal of 2-3 as managed by cardiology as an outpatient using a home monitor.
-He has preserved with TAVR mean gradient 6 mmHg and no AI by echo July 21, 2024 EF 70-75%
Progress Note - Shirt Finisher
Subjective
Date of Service: August 01, 2024
She feels a bit better today, sitting up in a chair today!
Objective
Labs:
08/01/24 04:25
08/01/24 04:25
Labs
Hgb 17.0 g/dL (12.0-16.0) H 08/01/24 04:25
Hct 51.3 % (37.0-47.0) H 08/01/24 04:25
Plt Count 231 10^3/uL (130-400) D 08/01/24 04:25
PT 21.8 Sec (11.4-14.6) H 08/01/24 04:25
INR 1.88 08/01/24 04:25
Sodium 141 mmol/L (135-145) 08/01/24 04:25
Potassium 2.9 mmol/L (3.5-5.1) L 08/01/24 04:25
BUN 29 mg/dl (7-17) H 08/01/24 04:25
Creatinine 0.8 mg/dL (0.6-1.0) 08/01/24 04:25
Glucose 133 mg/dl (70-99) H 08/01/24 04:25
Digoxin 0.5 ng/ml (0.8-2.0) L 07/20/24 11:55
Vital Signs and I&O:
Vital Signs
Temp Pulse Resp BP Pulse Ox
97.4 F 89 20 118/73 93
08/01/24 07:26 08/01/24 08:52 08/01/24 07:35 08/01/24 06:00 08/01/24 08:57
Vital Signs
Temp Pulse Resp BP Pulse Ox
97.4 F 89 20 118/73 93
08/01/24 07:26 08/01/24 08:52 08/01/24 07:35 08/01/24 06:00 08/01/24 08:57
Intake & Output
07/30/24 07/31/24 08/01/24 08/02/24
06:59 06:59 06:59 06:59
Intake Total 480 / 480 300 / 300 990 / 990
Output Total 2910 / 2910 3300 / 3300 2200 / 2200
Balance -2430 / -2430 -3000 / -3000 -1210 / -1210
Physical Exam
Physical Exam
GEN: NAD
HEENT: MMM
LUNGS: 10 L NC, no audible wheeze
CV: Afib on tele
EXT: +1 B/L LE edema
NEURO: Gross non-focal
SKIN: No rash
[2024-08-01] MEDS: DESENEX/MITRAZOL/ZEASORB 1 APPLIC TOPICAL ×2 (10:43→20:01)
[2024-08-01] MEDS: STERILE WATER FOR INJECTION 10 ML IV (11:54)
[2024-08-01] MEDS: ROCEPHIN 1000 MG IV (11:54)
[2024-08-01] MEDS: HYDROPHOR 1 APPLIC TOPICAL (11:55)
[2024-08-01 12:28] LABS: Glucose - Point of Care 213 mg/dl (70-99)
--- NOTE | 2024-08-01 13:07 | W.PN.HOSP.TC ---
Today's Communication/Plan
-
cont diuresis with GDMT planned by card
Assessment / Plan
Assessment / Plan
68yo F with PMHx of Afib, asthma, chronic hypoxic respiratory failure on 3L home O2, Hx of CVA, GERD, HTN, HLD, DM, anxiety d/o, CHAS on CPAP (non-compliant), TAVR on coumadin, R parietal meningioma, HX of PE admitted with AMS, managed for CHF
exacerbation and possible UTI
A/P:
#Acute metabolic encephalopathy 2/2 acute on chronic hypoxic hypercarbic respiratory failure 2/2 HFpEF exacerbation
#Pulmonary HTN
#CHAS on CPAP
#Asthma/COPD not in exacerbation
Bronchodilators
Diuretics, daily weight, follow electrolytes
Pulmonology and Cardiology follows
s/p R heart cath: increased pressures with low CI
CT showed no pulmonary embolism, but suggest pulmonary hypertension and elevated right heart pressures
WEan off O2 to home level of 3L
Emphasize nightly CPAP
#Hypokalemia
replete and follow
#E.coli UTI
completed ceftriaxone
#AIYANA
cardirenal
resolved
#Hx of syncope
on patient monitor by DCA
#Liver lesion seen on CT in Mar 2024
#Elevated Alk.phos
#Transaminitis
#Direct bilirubinemia
No RUQ pain
Since Mar 2024
MR abd when respiratory status improving, but suspect liver congestion 2/2 CHF
#DM type 2 with neuropathy
Accuchecks, Insulin SS, DM diet
#Anxiety/depression
#Permanent Afib
#Essential HTN
#HLD
#Raynaulds
#Hx of meningioma
#RLS
cont home meds
#Stage 3 R buttocks pressure injury
Wound care
offloading
#Morbid obesity
BMI 45.4
decrease calorie intake
DVT ppx coumadin
Full code
I have spent at least 38min reviewing chart, test results, communication with consultants and providing direct patient care
Anticipated Discharge: > 48 hours
Subjective/Interval History
-
Date of Service: August 01, 2024
Objective Data
-
Labs:
Laboratory Results
08/01/24
04:25
WBC 7.1
Hgb 17.0 H
Hct 51.3 H
Plt Count 231 D
PT 21.8 H
INR 1.88
Sodium 141
Potassium 2.9 L
Chloride 90 L
Carbon Dioxide 35 H
BUN 29 H
Creatinine 0.8
Glucose 133 H
Calcium 9.7
Total Bilirubin 2.9 H
AST 52 H
ALT 33
Alkaline Phosphatase 337 H
Vital Signs:
Vital Signs
Temp Pulse Resp BP Pulse Ox
97.6 F 87 15 92/62 94
08/01/24 11:33 08/01/24 11:26 08/01/24 11:26 08/01/24 10:00 08/01/24 11:26
I&O
07/31/24 08/01/24 08/02/24
06:59 06:59 06:59
Intake Total 300 / 300 990 / 990 825 / 825
Output Total 3300 / 3300 2200 / 2200
Balance -3000 / -3000 -1210 / -1210 825 / 825
Review of Systems
-
History Source: Patient
All other systems: Reviewed and negative
Physical Exam
-
General: Comfortable
HEENT: Normocephalic
Respiratory: Clear to Auscultation
GI: Soft, Nontender and Nondistended
Musculoskeletal: No Clubbing, No Cyanosis and No Edema
Neuro: Awake, Alert, Oriented and AO x 3
Psych: Calm
--- NOTE | 2024-08-01 13:14 | W.PN.PUL3 ---
Today's Communication / Plan
-
-Continue diuresis as tolerated
-Continue to encourage BiPAP use at night
Assessment
-
Patient is a 68 year old F with PMHx of COPD, HTN, HLD, anxiety, CHAS intolerant to CPAP, s/p TAVR, Afib on coumadin, pulmonary HTN, chronic hypoxic/hypercapnic respiratory failure on 3L home O2, HFpEF -in the hospital in early May with acute
hypoxemic respiratory failure due to heart failure and responded to diuresis. Back with hypoxemia, increased proBNP and possibly volume overload. Despite diuresis remains on mid flow oxygen. I was consulted on 07/25/2024 for evaluation of
persistent hypoxemia despite diuresis.
Chronic conditions ENDO TECH:
Admission to [facility] 05/2024 with acute/chronic heart failure.
Reported history of COPD/asthma, follows with Russ Smith
Atrial flutter with RVR (new onset)
Mild�moderate pulmonary hypertension with PASP 45�50 assuming an RAP of 15 mmHg
Severe CHAS intolerant to CPAP (per patient) with secondary polycythemia (initial Hb 18.5 on 01/19/2024)
Suspected OHS
Morbid obesity, BMI 48
Hypertension
Hyperlipidemia
DM type II
Aortic stenosis s/p TAVR
Anxiety
History of CVA
Former tobacco smoker (quit 1999)
Assessment and Plan:
#1. Acute on chronic hypoxemic respiratory failure. Multifactorial. More recent acute worsening due to CHF exacerbation with anasarca.
-Obesity with CHAS, likley OHS also, COPD as well as HFpEF with anasarca, all contributing
#2. Severe Pulmonary HTN, Group II. [facility] [address] 07/31/2024: RA (m) : 21, RV (s/d,m) : 76/10, 18, PA (s/d, m) : 76/33, 48, PCWP (m) : 38, Cardiac Output : 2.9 L/m, Cardiac Index : 1.4 L/min/m-2, PVR 3.5.
-No indication for pulmonary vasodilators as patient still volume overloaded
-Diuresis per Cardiology service, might need to lower Metoprolol with soft Blood pressure
#3. h/o COPD
-Not in acute exacerbation currently. No wheezing on exam.
-Continue Duoneb and Pulmicort. Yupelri/Aformoterol/budesonide in the outpatient setting(restart upon discharge)
-No indication for steroids.
#4. CHAS with suspected OHS
-Encouraged use of nightly AVAPS. Home setting Tidal volume 300, IPAP/EPAP 15-5. Patient has not been using it regularly at home
-VBG 08/01, 7.46, 64, compensated hypercapnia
-Counseled patient again regarding need for positive airway pressure ventilation overnight, she appears more motivated and plans to use it for more than 4 hours tonight
-
History of CVA, CT head showing meningioma-neurologically intact
-
DVT prophylaxis-on warfarin, goal INR 2-3
Updated patient's at bedside on 07/31. He also confirmed that patient has not been using AVAPS at home beyond few minutes.
She ultimately will follow-up with her private supervisor telephone clerks, Dr. Smith.
Total time spent on this consultation/encounter __32__ minutes which includes review of history, physical exam, medications, laboratory data, personal review of imaging, extensive review of outpatient records, discussion with care team and
respiratory therapy.

Diagnostic Data
CXR 01/19/24- Mild pulmonary edema. No definite pleural effusion.
-
CT chest 07/24/2024: Reviewed
Negative for pulmonary embolism.
Enlargement of the main pulmonary artery as well as the right ventricle and right atrium. TAVR in place. Small bilateral pleural effusions, left greater than right. Mild peripheral increase interstitial markings suggestive of interstitial
pulmonary edema.
-
CTA Chest 01/19/2024: No evidence of pulmonary embolism or active pulmonary process. Bilateral hilar lymphadenopathy. It is difficult to evaluate for hilar lymphadenopathy on the previous CT from 09/09/2022 given the absence of intravenous contrast on
this exam. Mediastinal lymphadenopathy is unchanged. Dilated pulmonary arterial system which can be seen in the setting of pulmonary arterial hypertension.
CT Head 03/03/24- 1). There are no acute intracranial abnormalities
2). Old 6.5 cm right occipital infarct
3). 2.8 cm meningioma over the anterolateral right parietal convexity
Echocardiogram 07/21/2024: Reviewed
Normal LVEF.
Mild LVH.
Flattened septum in systole and diastole consistent with RV pressure and volume overload.
Left ventricular ejection fraction 70 to 75%.
Severely dilated and hypokinetic right ventricle.
Moderately dilated left atrium
Severely dilated right atrium
Mitral stenosis-mild.
Mild MR.
Moderate TR. Estimated pulmonary pressure 73 mmHg.
Compared to 07/10/2024-mitral gradient is increased 12/5 from 9/5. Aortic gradient is increased 12/6 from 6/6. No other significant changes
ECHO 01/19/24- Hyperdynamic left ventricular systolic function. LV ejection fraction is 70- 75%. Mild mitral stenosis. s/p TAVR 29 mm Medtronic Evolut. Peak/mean gradients across the aortic valve are 8/5 mmHg. No aortic regurgitation. Enlarged right
ventricular size. Reduced right ventricular systolic function. Septal flattening in systole and diastole consistent with RV pressure and volume overload. Mild tricuspid regurgitation. Moderately elevated PASP. Estimated pulmonary artery pressure of
45-50 mmHg assuming a right atrial pressure of 15 mmHg. Compared to 05/01/22: RV dysfunction is now present. PASP was unable to be measured on prior study.
Reports and relevant images were personally reviewed.
Subjective Data
-
Date of Service:
Date of Service: August 01, 2024
Chief Complaint: Pulmonary Follow Up (Acute on chronic hypoxemic and hypercapnic respiratory failure)
Subjective:
Patient comfortably sitting in bed, no acute distress. Reports having used BiPAP for 3 to 3-1/2 hours overnight.
Review of Systems
Genitourinary: Other (All 14 systems reviewed and negative except as stated above in the history of present illness.)
Objective Data
Data Reviewed
Vital Signs / I&O / Oxygen:
Vital Signs
Temp Pulse Resp BP Pulse Ox
97.6 F 87 15 92/62 94
08/01/24 11:33 08/01/24 11:26 08/01/24 11:26 08/01/24 10:00 08/01/24 11:26
Intake and Output
07/31/24 08/01/24 08/02/24
06:59 06:59 06:59
Intake Total 300 / 300 990 / 990 825 / 825
Output Total 3300 / 3300 2200 / 2200
Balance -3000 / -3000 -1210 / -1210 825 / 825
SaO2 94
Nasal Cannula flow liters per 8
minute
Physical Exam
General: Comfortable
HEENT: Normocephalic
Cardiovascular: S1-S2 and Peripheral Edema
Respiratory: Clear and Non-Labored Respirations
GI: Soft, Distended (Abdominal obesity), Non Tender and Normal Bowel Sounds
Neurology: AO x 3 and Tremors (negative)
Skin: Warm, Dry, Other and Other (Lower extremity with venous stasis changes)
Labs/Micro/Reports
Lab Data
08/01/24 04:25
08/01/24 04:25
Laboratory Results
08/01/24
04:25
PT 21.8 H
INR 1.88
[2024-08-01] MEDS: NOVOLOG FLEXPEN-LOW RESISTANCE 2 UNITS SC (14:01)
[2024-08-01 16:44] LABS: Glucose - Point of Care 197 mg/dl (70-99)
[2024-08-01] MEDS: COUMADIN 3 MG PO (17:09)
[2024-08-01] MEDS: TYLENOL 650 MG PO (17:10)
[2024-08-01] MEDS: NOVOLOG FLEXPEN-LOW RESISTANCE 1 UNITS SC (17:11)
--- NOTE | 2024-08-01 18:00 | PTCARENOTE ---
Patient remains on 10L o2 midflow oxygen. Pulse ox low 90's. Patient drops to 88-89% with ambulation. Denies shortness of breath. Difficult to access accuracy of pulse ox with cool extremities. Patient alert and oriented but forgetful with
intermittent confusion. Out of bed to chair and commode most of the day. VS stable. BP's on soft side but stable.
[2024-08-01] MEDS: REQUIP 0.25 MG PO (19:59)
[2024-08-01] MEDS: RESTORIL 15 MG PO (20:00)
[2024-08-01 21:46] LABS: Glucose - Point of Care 148 mg/dl (70-99)
[2024-08-02] VITALS (14 sets, daily range): BP systolic 88–114; BP diastolic 58–82; BMI 45.7
--- NOTE | 2024-08-02 05:55 | PTCARENOTE ---
Cared for pt overnight, aaox3 but still forgetful at times. OOB to chair & BSCX 1RW. Seems to be controlling her bladder more. Weaned o2 down to 6LMF 94% while sleeping. Afib on monitor. NO assessment changes. Will continue to monitor.
[2024-08-02 06:09] LABS: INR 2.21; PT 24.6 Sec (11.4-14.6)
[2024-08-02 06:22] LABS: Blood Urea Nitrogen 33 mg/dl (7-17); Calcium 9.5 mg/dl (8.4-10.2); Carbon Dioxide 38 mmol/L (22-30); Chloride 92 mmol/L (98-107); Estimated Creatinine Clearance 81 ml/min; Glucose 153 mg/dl (70-99); Magnesium 2.1 mg/dl (1.6-2.3); Potassium 3.1 mmol/L (3.5-5.1); Sodium 138 mmol/L (135-145); eGFR > 60.00
[2024-08-02] MEDS: KCL 270 MEQ IV ×2 (06:41→11:01)
[2024-08-02] MEDS: DUONEB 3 ML INH (07:16)
[2024-08-02] MEDS: PULMICORT 0.5 MG INH (07:16)
[2024-08-02 07:31] LABS: Glucose - Point of Care 131 mg/dl (70-99)
--- NOTE | 2024-08-02 09:29 | W.PN.HOSP.TC ---
Today's Communication/Plan
-
Not much weight loss overnight, defer need in metolazone to card
Warfarin 2.5mg nightly and follow INR
cont to wean off O2, however non-compliance with CPAP is a predominant factor at this time
Assessment / Plan
Assessment / Plan
68yo F with PMHx of Afib, asthma, chronic hypoxic respiratory failure on 3L home O2, Hx of CVA, GERD, HTN, HLD, DM, anxiety d/o, CHAS on CPAP (non-compliant), TAVR on coumadin, R parietal meningioma, HX of PE admitted with AMS, managed for CHF
exacerbation and possible UTI. Patient with significant pulmonary HTN but not compliant with CPAP that contributes to the problem
A/P:
#Acute metabolic encephalopathy 2/2 acute on chronic hypoxic hypercarbic respiratory failure 2/2 HFpEF exacerbation
#Pulmonary HTN
#CHAS on CPAP
#Asthma/COPD not in exacerbation
Bronchodilators
Diuretics, daily weight, follow electrolytes
Pulmonology and Cardiology follows
s/p R heart cath: increased pressures with low CI
CT showed no pulmonary embolism, but suggest pulmonary hypertension and elevated right heart pressures
WEan off O2 to home level of 3L
Emphasize nightly CPAP
#Hypokalemia
replete and follow
#E.coli UTI
completed ceftriaxone
#AIYANA
cardirenal
resolved
#Hx of syncope
on cardiac exercise specialist by DCA
#Liver lesion seen on CT in Mar 2024
#Elevated Alk.phos
#Transaminitis
#Direct bilirubinemia
No RUQ pain
Since Mar 2024
MR abd when respiratory status improving, but suspect liver congestion 2/2 CHF
#DM type 2 with neuropathy
Accuchecks, Insulin SS, DM diet
#Anxiety/depression
#Permanent Afib
#Essential HTN
#HLD
#Raynaulds
#Hx of meningioma
#RLS
cont home meds
#Stage 3 R buttocks pressure injury
Wound care
offloading
#Morbid obesity
BMI 45.4
decrease calorie intake
DVT ppx coumadin
Full code
I have spent at least 38min reviewing chart, test results, communication with consultants and providing direct patient care
Anticipated Discharge: > 48 hours
Subjective/Interval History
-
Date of Service: August 02, 2024
Objective Data
-
Labs:
Laboratory Results
08/02/24
05:41
PT 24.6 H
INR 2.21
Sodium 138
Potassium 3.1 L
Chloride 92 L
Carbon Dioxide 38 H
BUN 33 H
Creatinine 0.8
Glucose 153 H
Calcium 9.5
Vital Signs:
Vital Signs
Temp Pulse Resp BP Pulse Ox
97.9 F 87 16 106/82 93
08/02/24 07:05 08/02/24 07:20 08/02/24 07:20 08/02/24 04:00 08/02/24 07:20
I&O
08/01/24 08/02/24 08/03/24
06:59 06:59 06:59
Intake Total 990 / 990 1750 / 1750
Output Total 2200 / 2200 960 / 960
Balance -1210 / -1210 790 / 790
Review of Systems
-
History Source: Patient
All other systems: Reviewed and negative
Physical Exam
-
General: No Apparent Distress
HEENT: Normocephalic
Respiratory: Clear to Auscultation
Cardiac: Regular Rhythm
GI: Soft, Nontender and Nondistended
Musculoskeletal: No Clubbing, No Cyanosis, Edema, Right Lower Extrem and Edema, Left Lower Extrem
Neuro: Awake, Alert, Oriented and AO x 3
Psych: Calm
[2024-08-02] MEDS: TOPROL XL 50 MG PO ×2 (09:44→22:15)
[2024-08-02] MEDS: NEURONTIN 300 MG PO ×3 (09:44→22:14)
[2024-08-02] MEDS: OSCAL 500 + D 500 MG PO (09:44)
[2024-08-02] MEDS: LIPITOR 10 MG PO (09:44)
[2024-08-02] MEDS: FARXIGA 10 MG PO (09:44)
[2024-08-02] MEDS: CYMBALTA DELAYED RELEASE 60 MG PO (09:44)
[2024-08-02] MEDS: KCL 40 MEQ PO ×2 (09:45→20:03)
[2024-08-02] MEDS: DESENEX/MITRAZOL/ZEASORB 1 APPLIC TOPICAL ×2 (09:45→20:04)
[2024-08-02] MEDS: HYDROPHOR 1 APPLIC TOPICAL (09:45)
[2024-08-02] MEDS: THERAGRAN 1 TABLET PO (09:45)
[2024-08-02] MEDS: BUMEX 3 MG IV ×2 (09:46→16:28)
[2024-08-02] MEDS: FLUSH (NSS) 1 FLUSH IV ×2 (09:46→16:28)
[2024-08-02] MEDS: VITAMIN B-12 2500 MCG PO (09:47)
[2024-08-02] MEDS: NOVOLOG FLEXPEN-LOW RESISTANCE SC (09:48)
--- NOTE | 2024-08-02 10:08 | W.PN.PUL3 ---
Today's Communication / Plan
-
-Add mode hose stockings, below knee
-Stressed compliance for BIPAP again, encouraged at least 4 hr of use overnight. Last night she used for 2 hours
-Change Duoneb/Pulmicort to Symbicort/Spiriva
Assessment
-
Patient is a 68 year old F with PMHx of COPD, HTN, HLD, anxiety, CHAS intolerant to CPAP, s/p TAVR, Afib on coumadin, pulmonary HTN, chronic hypoxic/hypercapnic respiratory failure on 3L home O2, HFpEF -in the hospital in early May with acute
hypoxemic respiratory failure due to heart failure and responded to diuresis. Back with hypoxemia, increased proBNP and possibly volume overload. Despite diuresis remains on mid flow oxygen. I was consulted on 07/25/2024 for evaluation of
persistent hypoxemia despite diuresis.
Chronic conditions COMPLIANCE NURSE:
Admission to [facility] 05/2024 with acute/chronic heart failure.
Reported history of COPD/asthma, follows with Russ Smith
Atrial flutter with RVR (new onset)
Mild�moderate pulmonary hypertension with PASP 45�50 assuming an RAP of 15 mmHg
Severe CHAS intolerant to CPAP (per patient) with secondary polycythemia (initial Hb 18.5 on 01/19/2024)
Suspected OHS
Morbid obesity, BMI 48
Hypertension
Hyperlipidemia
DM type II
Aortic stenosis s/p TAVR
Anxiety
History of CVA
Former tobacco smoker (quit 1999)
Assessment and Plan:
#1. Acute on chronic hypoxemic respiratory failure. Multifactorial. More recent acute worsening due to CHF exacerbation with anasarca.
-Obesity with CHAS, likely OHS also, COPD as well as HFpEF with anasarca, all contributing
-Continue Diuresis as tolerated
-Add Mode hose stockings
#2. Severe Pulmonary HTN, Group II. [facility] 07/31/2024: RA (m) : 21, RV (s/d,m) : 76/10, 18, PA (s/d, m) : 76/33, 48, PCWP (m) : 38, Cardiac Output : 2.9 L/m, Cardiac Index : 1.4 L/min/m-2, PVR 3.5.
-No indication for pulmonary vasodilators as patient still volume overloaded
-Diuresis per Cardiology service, not much diuresis over last 24 hrs
#3. h/o COPD
-Not in acute exacerbation currently. No wheezing on exam.
-Change to Spiriva/Symbicort. Yupelri/Aformoterol/budesonide in the outpatient setting(restart upon discharge)
-No indication for steroids.
#4. CHAS with suspected OHS
-Encouraged use of nightly AVAPS. Home setting Tidal volume 300, IPAP/EPAP 15-5. Patient has not been using it regularly at home
-VBG 08/01, 7.46, 64, compensated hypercapnia
-Counseled patient again regarding need for positive airway pressure ventilation overnight, she appears more motivated and plans to use it for more than 4 hours tonight
-
History of CVA, CT head showing meningioma-neurologically intact
-
DVT prophylaxis-on warfarin, goal INR 2-3
Updated patient's at bedside on 07/31. He also confirmed that patient has not been using AVAPS at home beyond few minutes.
She ultimately will follow-up with her private velocity shooter, Dr. Smith.
Total time spent on this consultation/encounter __32__ minutes which includes review of history, physical exam, medications, laboratory data, personal review of imaging, extensive review of outpatient records, discussion with care team and
respiratory therapy.

Diagnostic Data
CXR 01/19/24- Mild pulmonary edema. No definite pleural effusion.
-
CT chest 07/24/2024: Reviewed
Negative for pulmonary embolism.
Enlargement of the main pulmonary artery as well as the right ventricle and right atrium. TAVR in place. Small bilateral pleural effusions, left greater than right. Mild peripheral increase interstitial markings suggestive of interstitial
pulmonary edema.
-
CTA Chest 01/19/2024: No evidence of pulmonary embolism or active pulmonary process. Bilateral hilar lymphadenopathy. It is difficult to evaluate for hilar lymphadenopathy on the previous CT from 09/09/2022 given the absence of intravenous contrast on
this exam. Mediastinal lymphadenopathy is unchanged. Dilated pulmonary arterial system which can be seen in the setting of pulmonary arterial hypertension.
CT Head 03/03/24- 1). There are no acute intracranial abnormalities
2). Old 6.5 cm right occipital infarct
3). 2.8 cm meningioma over the anterolateral right parietal convexity
Echocardiogram 07/21/2024: Reviewed
Normal LVEF.
Mild LVH.
Flattened septum in systole and diastole consistent with RV pressure and volume overload.
Left ventricular ejection fraction 70 to 75%.
Severely dilated and hypokinetic right ventricle.
Moderately dilated left atrium
Severely dilated right atrium
Mitral stenosis-mild.
Mild MR.
Moderate TR. Estimated pulmonary pressure 73 mmHg.
Compared to 07/10/2024-mitral gradient is increased 12/5 from 01/05. Aortic gradient is increased 12/6 from 10/06. No other significant changes
ECHO 01/19/24- Hyperdynamic left ventricular systolic function. LV ejection fraction is 70- 75%. Mild mitral stenosis. s/p TAVR 29 mm Medtronic Evolut. Peak/mean gradients across the aortic valve are 8/5 mmHg. No aortic regurgitation. Enlarged right
ventricular size. Reduced right ventricular systolic function. Septal flattening in systole and diastole consistent with RV pressure and volume overload. Mild tricuspid regurgitation. Moderately elevated PASP. Estimated pulmonary artery pressure of
45-50 mmHg assuming a right atrial pressure of 15 mmHg. Compared to 05/01/22: RV dysfunction is now present. PASP was unable to be measured on prior study.
Reports and relevant images were personally reviewed.
Subjective Data
-
Date of Service:
Date of Service: August 02, 2024
Chief Complaint: Pulmonary Follow Up (Acute on chronic hypoxemic and hypercapnic respiratory failure)
Subjective:
Sitting in bed in no acute distress.
Review of Systems
Genitourinary: Other (Negative excet as stated above)
Objective Data
Data Reviewed
Vital Signs / I&O / Oxygen:
Vital Signs
Temp Pulse Resp BP Pulse Ox
97.9 F 95 15 108/64 90
08/02/24 07:05 08/02/24 08:00 08/02/24 08:00 08/02/24 08:00 08/02/24 08:00
Intake and Output
08/01/24 08/02/24 08/03/24
06:59 06:59 06:59
Intake Total 990 / 990 1750 / 1750
Output Total 2200 / 2200 960 / 960 700 / 700
Balance -1210 / -1210 790 / 790 -700 / -700
SaO2 90
Nasal Cannula flow liters per 8
minute
Physical Exam
General: Comfortable
HEENT: Normocephalic
Cardiovascular: S1-S2 and Peripheral Edema
Respiratory: Clear and Non-Labored Respirations
GI: Soft, Distended (Abdominal obesity), Non Tender and Normal Bowel Sounds
Neurology: AO x 3 and Tremors (negative)
Skin: Warm, Dry, Other and Other (Lower extremity with venous stasis changes)
Labs/Micro/Reports
Lab Data
08/01/24 04:25
08/02/24 05:41
Laboratory Results
08/02/24
05:41
PT 24.6 H
INR 2.21
[2024-08-02] MEDS: SPIRIVA RESPIMAT 2.5 MCG 2 PUFF INH (10:25)
[2024-08-02 13:30] LABS: Glucose - Point of Care 198 mg/dl (70-99)
[2024-08-02] MEDS: NOVOLOG FLEXPEN-LOW RESISTANCE 1 UNITS SC ×2 (13:54→17:18)
--- NOTE | 2024-08-02 14:16 | W.PN.CARDCBS ---
Addendum entered and electronically signed by Amador Curtis MD 08/02/24 15:14:
I saw and examined the patient.
The Perfumer's note was reviewed and I agree with the note.
Comment:
GEN: No distress, awake, Ox3
HEENT: supple, anicteric, mmm
LUNGS: CTA, no wheezes/rales
CV: Irreg, S1/S2, 1/6 syst LSB, S3+
ABD: soft, BS+, NT/ND
EXT: +1 edema
NEURO: Gross non-focal
SKIN: chronic stasis
Plan:
Continues to slowly improved. Not sure weight is accurate. Will continue IV Bumex with another dose of metolazone.
Aggressively replete potassium.
Would be aiming to switch to oral diuretics by end of week.
Continue rate control strategy for A-fib. Continue Toprol, digoxin, and Coumadin. INR 2.2
Original Note:
Today's Communication / Plan
-
Oxygen requirements improved just a bit
Will try another dose of metolazone
Increase KCL to 40 meq BID plus K riders ordered by Hosp attending
Impression / Plan
-
PCP: Dr. Sanjay Carrera
Primary Want Ad Clerk: Dr. CHAVA Alejandro
Impression:
Admitted with confusion/metabolic encephalopathy 07/20/24
Acute on chronic hypoxemic respiratory failure
Acute on chronic HFpEF
Hypokalemia
AIYANA
Admission to [facility] for syncope vs fall 07/10-07/11/24
LE wounds
Persistent AFib,
Chronic Coumadin therapy, managed by cardiology
NSVT, 07/21/24
Essential HTN
DM2
h/o TAVR 2021
Severe pulm HTN
COPD, chronically on 3L NC
h/o R post CVA
h/o R parietal meningioma
CHAS: intolerant of CPAP
Hyperlipidemia
Morbid obesity
Chronic lymphedema
History of PE
Uncharacterized liver lesion
Subclinical hyperthyroidism
History of gastric bypass
Depression/anxiety/insomnia with history of serotonin syndrome admission 03/2024
Polypharmacy
History of falls
Hypokalemia
Echo 07/10/2024: EF 70 to 75%, evidence of RV pressure and volume overload, mild concentric LVH, MAC, mild MS with peak/mean gradients 9/5 mmHg, trace MR, number 29 mm Medtronic Evolut TAVR with peak/mean gradient 6/3 mmHg, moderate to severe TR, PAP
79 mmHg, severely dilated right heart, no significant change compared to prior
Echo 07/21/24:EF 70-75%, dilated RV with RV hypokinesis, mean mitral gradient 5, mild MR, status post Evolut transcatheter aortic valve with mean gradient of 6 and no AI, moderate TR with PA pressure 73
RIGHT HEART CATHETERIZATION Date of Procedure: 07/31/24
Hemodynamics (mmHg):
RA (m) : 21
RV (s/d,m) : 76/10, 18
PA (s/d, m) : 76/33, 48
PCWP (m) : 38
Cardiac Output : 2.9 L/min
Cardiac Index : 1.4 L/min/m-2
Systemic vascular resistance: 21 Wood units or 1684 [id number](-5)
Pulmonary vascular resistance: 3.5 Wood units or 281 [id number](-5)
CONCLUSION:
1. Elevated right and left ventricular filling pressures
Plan:
-Remains volume overloaded. Will try another dose of metolazone 2.5 mg with the evening dose of Bumex 3 mg BID on 08/02/24
-Remains hypokalemic despite K riders, magnesium is normal at 2.1. Will increase KCl to 40 meq BID, ordered by me.
-Patient was taking torsemide 40 mg PO BID prior to admission and despite diuresis patient continues to require oxygen at 8 L midflow NC which is higher than her outpatient requirement of 3 L NC
-Pulmonology note reviewed and no indication for pulmonary vasodilators at this time
-Cre stable at 0.8 on 08/02/24.
-GDMT with Toprol XL 50 mg HS.
-No ACEI/ARB/Arni/aldosterone antagonist, meds previously stopped due to hypotension.
-Known persistent atrial fibrillation, heart rate control with Toprol XL and digoxin. Digoxin level has been stable.
-INR 2.21 on 08/02/24. Warfarin 2.5 mg daily ordered by hospitalist attending
-INR goal of 2-3 as managed by cardiology as an outpatient using a home monitor.
-He has preserved with TAVR mean gradient 6 mmHg and no AI by echo July 21, 2024 EF 70-75%
Progress Note - Want Ad Clerk
Subjective
Date of Service: August 02, 2024
She feels the same
Objective
Labs:
08/01/24 04:25
08/02/24 05:41
Labs
Hgb 17.0 g/dL (12.0-16.0) H 08/01/24 04:25
Hct 51.3 % (37.0-47.0) H 08/01/24 04:25
Plt Count 231 10^3/uL (130-400) D 08/01/24 04:25
PT 24.6 Sec (11.4-14.6) H 08/02/24 05:41
INR 2.21 08/02/24 05:41
Sodium 138 mmol/L (135-145) 08/02/24 05:41
Potassium 3.1 mmol/L (3.5-5.1) L 08/02/24 05:41
BUN 33 mg/dl (7-17) H 08/02/24 05:41
Creatinine 0.8 mg/dL (0.6-1.0) 08/02/24 05:41
Glucose 153 mg/dl (70-99) H 08/02/24 05:41
Digoxin 0.5 ng/ml (0.8-2.0) L 07/20/24 11:55
Vital Signs and I&O:
Vital Signs
Temp Pulse Resp BP Pulse Ox
97.9 F 89 14 108/64 96
08/02/24 11:05 08/02/24 10:29 08/02/24 10:29 08/02/24 08:00 08/02/24 10:29
Vital Signs
Temp Pulse Resp BP Pulse Ox
97.9 F 89 14 108/64 96
08/02/24 11:05 08/02/24 10:29 08/02/24 10:29 08/02/24 08:00 08/02/24 10:29
Intake & Output
07/31/24 08/01/24 08/02/24 08/03/24
06:59 06:59 06:59 06:59
Intake Total 300 / 300 990 / 990 1750 / 1750
Output Total 3300 / 3300 2200 / 2200 960 / 960 700 / 700
Balance -3000 / -3000 -1210 / -1210 790 / 790 -700 / -700
Physical Exam
Physical Exam
GEN: NAD
HEENT: MMM
LUNGS: 8 L NC, no audible wheeze
CV: Afib on tele
EXT: +1 B/L LE edema
NEURO: Gross non-focal
SKIN: No rash
--- NOTE | 2024-08-02 16:00 | PTCARENOTE ---
Patient out of bed to chair with assistance x2. Uses commode during the day and pure wick at HS. Patient on 6L o2 all day. Sats 90-95%. Patient uses IS with encouragement. Denies SOB. afib on monitor. VS stable. Possible d/c to [place]
tomorrow.
[2024-08-02] MEDS: ZAROXOLYN 2.5 MG PO (16:26)
[2024-08-02 17:15] LABS: Glucose - Point of Care 171 mg/dl (70-99)
[2024-08-02] MEDS: COUMADIN 2.5 MG PO (17:21)
[2024-08-02 17:31] LABS: Glucose - Point of Care 166 mg/dl (70-99)
[2024-08-02] MEDS: SYMBICORT 80/4.5 MCG INHALER 2 PUFF INH (19:53)
[2024-08-02 21:58] LABS: Glucose - Point of Care 142 mg/dl (70-99)
[2024-08-02] MEDS: REQUIP 0.25 MG PO (22:14)
[2024-08-02] MEDS: RESTORIL 15 MG PO (22:14)
[2024-08-03] VITALS (15 sets, daily range): BP systolic 84–108; BP diastolic 58–80; PULSE 85; O2SAT 96; BMI 45.5; BMI 44.6
--- NOTE | 2024-08-03 00:19 | PTCARENOTE ---
Assumed care for patient overnight, received report from dayshift RN. Pt disoriented to time, forgetful at times, otherwise very pleasant. At change of shift pt was in the chair. Pt required assistance on 1 with r.w to bedside commode. Pt had a
small formed BM. Received pt on 8L MFNC, difficult to get accurate SpO2 reading due to cool extremities. Pulse ox moved to ear. RT bedside to place pt on CPAP overnight. Pt seems to be tolerating well. A-fib on the monitor. Bed alarm on and call
avitia within reach.
--- NOTE | 2024-08-03 03:45 | RESPNOTE ---
00:00 pt required help placing self on home CPAP machine
[2024-08-03 04:58] LABS: INR 2.15; PT 24.5 Sec (11.4-14.6)
[2024-08-03 05:10] LABS: Blood Urea Nitrogen 34 mg/dl (7-17); Calcium 9.4 mg/dl (8.4-10.2); Carbon Dioxide 40 mmol/L (22-30); Chloride 92 mmol/L (98-107); Estimated Creatinine Clearance 81 ml/min; Glucose 152 mg/dl (70-99); Magnesium 2.2 mg/dl (1.6-2.3); Potassium 3.3 mmol/L (3.5-5.1); Sodium 138 mmol/L (135-145); eGFR > 60.00
[2024-08-03] MEDS: KCL 270 MEQ IV ×2 (06:29→11:15)
[2024-08-03] MEDS: SYMBICORT 80/4.5 MCG INHALER 2 PUFF INH ×2 (07:32→19:57)
[2024-08-03] MEDS: SPIRIVA RESPIMAT 2.5 MCG 2 PUFF INH (07:32)
[2024-08-03] MEDS: VITAMIN B-12 2500 MCG PO (07:38)
[2024-08-03] MEDS: TOPROL XL 50 MG PO ×2 (07:38→20:49)
[2024-08-03] MEDS: OSCAL 500 + D 500 MG PO (07:38)
[2024-08-03] MEDS: NEURONTIN 300 MG PO ×3 (07:38→20:49)
[2024-08-03] MEDS: KCL 40 MEQ PO (07:38)
[2024-08-03] MEDS: FARXIGA 10 MG PO (07:38)
[2024-08-03] MEDS: LANOXIN 125 MCG PO (07:38)
[2024-08-03] MEDS: CYMBALTA DELAYED RELEASE 60 MG PO (07:38)
[2024-08-03] MEDS: LIPITOR 10 MG PO (07:38)
[2024-08-03] MEDS: BUMEX 3 MG IV ×2 (07:39→17:45)
[2024-08-03] MEDS: NOVOLOG FLEXPEN-LOW RESISTANCE SC (07:39)
[2024-08-03] MEDS: HYDROPHOR 1 APPLIC TOPICAL (07:39)
[2024-08-03] MEDS: THERAGRAN 1 TABLET PO (07:40)
[2024-08-03] MEDS: DESENEX/MITRAZOL/ZEASORB 1 APPLIC TOPICAL ×2 (07:40→20:48)
[2024-08-03 07:51] LABS: Glucose - Point of Care 118 mg/dl (70-99)
--- NOTE | 2024-08-03 08:55 | PTCARENOTE ---
Patient received from night patrol inspector. Patient is resting comfortably in in the chair. AAO, little confusion this AM, VSS. No events noted overnight. No complaints of pain at this time. Patient wore BiPAP for approx. 5-6hrs last night. Patient
currently on 6L Midflow N/C, continue to wean as tolerated. Continuing diuresis. No further testing scheduled at this time. Call avitia in reach.
--- NOTE | 2024-08-03 10:00 | W.PN.HOSP.TC ---
Today's Communication/Plan
-
cont diuresis as per cardio - weight keeps mproving
respiratory startus better -attempt MRI abd for liver lesion
cont to wean off O2 to 3L home
Assessment / Plan
Assessment / Plan
68yo F with PMHx of Afib, asthma, chronic hypoxic respiratory failure on 3L home O2, Hx of CVA, GERD, HTN, HLD, DM, anxiety d/o, CHAS on CPAP (non-compliant), TAVR on coumadin, R parietal meningioma, HX of PE admitted with AMS, managed for CHF
exacerbation and possible UTI. Patient with significant pulmonary HTN but not compliant with CPAP that contributes to the problem
A/P:
#Acute metabolic encephalopathy 2/2 acute on chronic hypoxic hypercarbic respiratory failure 2/2 HFpEF exacerbation
#Pulmonary HTN
#CHAS on CPAP
#Asthma/COPD not in exacerbation
Bronchodilators
Diuretics, daily weight, follow electrolytes
Pulmonology and Cardiology follows
s/p R heart cath: increased pressures with low CI
CT showed no pulmonary embolism, but suggest pulmonary hypertension and elevated right heart pressures
WEan off O2 to home level of 3L
Emphasize nightly CPAP
BRANDON hose stockings
bronchodipators
#Hypokalemia
replete and follow
#E.coli UTI
completed ceftriaxone
#AIYANA
cardiorenal
resolved
#Hx of syncope
on campus monitor by DCA
#Liver lesion seen on CT in Mar 2024
#Elevated Alk.phos
#Transaminitis
#Direct bilirubinemia
No RUQ pain
Since Mar 2024
MR abd when respiratory status improving, but suspect liver congestion 2/2 CHF
#DM type 2 with neuropathy
Accuchecks, Insulin SS, DM diet
#Anxiety/depression
#Permanent Afib
#Essential HTN
#HLD
#Raynaulds
#Hx of meningioma
#RLS
cont home meds
#Stage 3 R buttocks pressure injury
Wound care
offloading
#Morbid obesity
BMI 45.4
decrease calorie intake
DVT ppx Coumadin
Full code
I have spent at least 38min reviewing chart, test results, communication with consultants and providing direct patient care
Anticipated Discharge: Within 24 hours
Subjective/Interval History
-
Date of Service: August 03, 2024
Objective Data
-
Labs:
Laboratory Results
08/03/24
04:36
PT 24.5 H
INR 2.15
Sodium 138
Potassium 3.3 L
Chloride 92 L
Carbon Dioxide 40 H
BUN 34 H
Creatinine 0.8
Glucose 152 H
Calcium 9.4
Vital Signs:
Vital Signs
Temp Pulse Resp BP Pulse Ox
97.5 F 89 15 101/71 98
08/03/24 07:41 08/03/24 07:38 08/03/24 07:33 08/03/24 07:38 08/03/24 08:53
I&O
08/02/24 08/03/24 08/04/24
06:59 06:59 06:59
Intake Total 1750 / 1750 420 / 420
Output Total 960 / 960 1875 / 1875
Balance 790 / 790 -1455 / -1455
Review of Systems
-
History Source: Patient
All other systems: Reviewed and negative
Physical Exam
-
General: No Apparent Distress
HEENT: Normocephalic
Cardiac: Regular Rhythm
GI: Soft, Nontender and Nondistended
Musculoskeletal: No Clubbing, No Cyanosis, Edema, Right Lower Extrem and Edema, Left Lower Extrem
Neuro: Awake, Alert, Oriented and AO x 3
Psych: Calm
[2024-08-03 12:12] LABS: Glucose - Point of Care 171 mg/dl (70-99)
[2024-08-03] MEDS: NOVOLOG FLEXPEN-LOW RESISTANCE 1 UNITS SC (12:41)
[2024-08-03] MEDS: ATIVAN 0.25 MG IV (12:46)
--- NOTE | 2024-08-03 14:28 | W.PN.PUL3 ---
Today's Communication / Plan
-
-Resume home nebz at discharge for COPD Yupelri/Aformoterol/budesonide (will not need any inhalers)
-Continue nightly BIPAP as ordered
-Resume out patient follow up with her primary Cable Reeler, Dr. Smith
-Pulmonary service will sign off. Please call as needed.
Assessment
-
Patient is a 68 year old F with PMHx of COPD, HTN, HLD, anxiety, CHAS intolerant to CPAP, s/p TAVR, Afib on coumadin, pulmonary HTN, chronic hypoxic/hypercapnic respiratory failure on 3L home O2, HFpEF -in the hospital in early May with acute
hypoxemic respiratory failure due to heart failure and responded to diuresis. Back with hypoxemia, increased proBNP and possibly volume overload. Despite diuresis remains on mid flow oxygen. I was consulted on 07/25/2024 for evaluation of
persistent hypoxemia despite diuresis.
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
Admission to [facility] 05/2024 with acute/chronic heart failure.
Reported history of COPD/asthma, follows with Russ Smith
Atrial flutter with RVR (new onset)
Mild�moderate pulmonary hypertension with PASP 45�50 assuming an RAP of 15 mmHg
Severe CHAS intolerant to CPAP (per patient) with secondary polycythemia (initial Hb 18.5 on 01/19/2024)
Suspected OHS
Morbid obesity, BMI 48
Hypertension
Hyperlipidemia
DM type II
Aortic stenosis s/p TAVR
Anxiety
History of CVA
Former tobacco smoker (quit 1999)
Assessment and Plan:
#1. Acute on chronic hypoxemic respiratory failure. Multifactorial. More recent acute worsening due to CHF exacerbation with anasarca.
-Obesity with CHAS, likely OHS also, COPD as well as HFpEF with anasarca, all contributing
-Continue Diuresis as tolerated
-Added Mode hose stockings
#2. Severe Pulmonary HTN, Group II. [facility] 07/31/2024: RA (m) : 21, RV (s/d,m) : 76/10, 18, PA (s/d, m) : 76/33, 48, PCWP (m) : 38, Cardiac Output : 2.9 L/m, Cardiac Index : 1.4 L/min/m-2, PVR 3.5.
-No indication for pulmonary vasodilators as patient still volume overloaded
-Diuresis per Cardiology service
#3. h/o COPD
-Not in acute exacerbation currently. No wheezing on exam.
-Change to Spiriva/Symbicort. Yupelri/Aformoterol/budesonide in the outpatient setting(restart upon discharge)
-No indication for steroids.
#4. CHAS with suspected OHS
-Encouraged use of nightly BIPAP. Home setting Tidal volume 300, IPAP/EPAP 15-5. Patient has not been using it regularly at home
-VBG 08/01, 7.46, 64, compensated hypercapnia
-Counseled patient again regarding need for positive airway pressure ventilation overnight, she appears more motivated and plans to use it for more than 4 hours tonight
-
History of CVA, CT head showing meningioma-neurologically intact
-
DVT prophylaxis-on warfarin, goal INR 2-3
Total time spent on this consultation/encounter __30__ minutes which includes review of history, physical exam, medications, laboratory data, personal review of imaging, extensive review of outpatient records, discussion with care team and
respiratory therapy.

Diagnostic Data
CXR 01/19/24- Mild pulmonary edema. No definite pleural effusion.
-
CT chest 07/24/2024: Reviewed
Negative for pulmonary embolism.
Enlargement of the main pulmonary artery as well as the right ventricle and right atrium. TAVR in place. Small bilateral pleural effusions, left greater than right. Mild peripheral increase interstitial markings suggestive of interstitial
pulmonary edema.
-
CTA Chest 01/19/2024: No evidence of pulmonary embolism or active pulmonary process. Bilateral hilar lymphadenopathy. It is difficult to evaluate for hilar lymphadenopathy on the previous CT from 09/09/2022 given the absence of intravenous contrast on
this exam. Mediastinal lymphadenopathy is unchanged. Dilated pulmonary arterial system which can be seen in the setting of pulmonary arterial hypertension.
CT Head 03/03/24- 1). There are no acute intracranial abnormalities
2). Old 6.5 cm right occipital infarct
3). 2.8 cm meningioma over the anterolateral right parietal convexity
Echocardiogram 07/21/2024: Reviewed
Normal LVEF.
Mild LVH.
Flattened septum in systole and diastole consistent with RV pressure and volume overload.
Left ventricular ejection fraction 70 to 75%.
Severely dilated and hypokinetic right ventricle.
Moderately dilated left atrium
Severely dilated right atrium
Mitral stenosis-mild.
Mild MR.
Moderate TR. Estimated pulmonary pressure 73 mmHg.
Compared to 07/10/2024-mitral gradient is increased 12/5 from 9/. Aortic gradient is increased 12/6 from /. No other significant changes
ECHO 01/19/24- Hyperdynamic left ventricular systolic function. LV ejection fraction is 70- 75%. Mild mitral stenosis. s/p TAVR 29 mm Medtronic Evolut. Peak/mean gradients across the aortic valve are 8/5 mmHg. No aortic regurgitation. Enlarged right
ventricular size. Reduced right ventricular systolic function. Septal flattening in systole and diastole consistent with RV pressure and volume overload. Mild tricuspid regurgitation. Moderately elevated PASP. Estimated pulmonary artery pressure of
45-50 mmHg assuming a right atrial pressure of 15 mmHg. Compared to 05/01/22: RV dysfunction is now present. PASP was unable to be measured on prior study.
Reports and relevant images were personally reviewed.
Subjective Data
-
Date of Service:
Date of Service: August 03, 2024
Chief Complaint: Pulmonary Follow Up (Acute on chronic hypoxemic and hypercapnic respiratory failure)
Subjective:
Patient comfortably sitting in bed in no acute distress.
Review of Systems
Genitourinary: Other (All 14 systems reviewed and negative except as stated above in the history of present illness.)
Objective Data
Data Reviewed
Vital Signs / I&O / Oxygen:
Vital Signs
Temp Pulse Resp BP Pulse Ox
97.8 F 89 15 101/71 98
08/03/24 11:31 08/03/24 07:38 08/03/24 07:33 08/03/24 07:38 08/03/24 08:53
Intake and Output
08/02/24 08/03/24 08/04/24
06:59 06:59 06:59
Intake Total 1750 / 1750 420 / 420
Output Total 960 / 960 1875 / 1875
Balance 790 / 790 -1455 / -1455
SaO2 98
Nasal Cannula flow liters per 6
minute
Physical Exam
General: Comfortable
HEENT: Normocephalic
Cardiovascular: S1-S2 and Peripheral Edema
Respiratory: Clear and Non-Labored Respirations
GI: Soft, Distended (Abdominal obesity), Non Tender and Normal Bowel Sounds
Neurology: AO x 3 and Tremors (negative)
Skin: Warm, Dry, Other and Other (Lower extremity with venous stasis changes)
Labs/Micro/Reports
Lab Data
08/01/24 04:25
08/03/24 04:36
Laboratory Results
08/03/24
04:36
PT 24.5 H
INR 2.15
--- NOTE | 2024-08-03 14:49 | CM ---
Patient with Dx Patient with Dx Acute metabolic encephalopathy, acute hypoxic respiratory failure, HF. MRI Abdomen pending. O2 6L, home CPAP. Receiving IV Bumex. Seen by wound care nurse. PT/OT recommend skilled rehab. Per nurse; confused,
forgetful.
Per Dr Mari; patient may need another 2-5 days here in hospital.
Messages with Adm [facility] Mariama Auguste; referral updated in [facility]. She is reviewing the referral.
Spoke with patient's Jamaal; he feels his is doing better. He agrees with short term rehab and confirms he wants to take his home after rehab. Jamaal is aware that Mariama Auguste is reviewing for acceptance.
CM continuing to follow for d/c needs.
Plan follow up with Mariama Auguste for acceptance.
--- NOTE | 2024-08-03 15:46 | W.PN.CARDCBS ---
Addendum entered and electronically signed by Amador Curtis MD 08/03/24 16:39:
I saw and examined the patient.
The Assisted Living Coordinator's note was reviewed and I agree with the note.
Comment:
GEN: No distress, awake, Ox3
HEENT: supple, anicteric, mmm
LUNGS: CTA, no wheezes/rales
CV: Irreg, S1/S2, 1/6 syst LSB, no gallop
ABD: soft, BS+, NT/ND
EXT: +1 edema
NEURO: Gross non-focal
SKIN: Chronic venous stasis
PLan:
Has diuresed 30 pounds and looks better. Will continue Bumex for another 24 hours.
Would be reasonable for discharge from cardiology standpoint on Wednesday. Replete potassium.
Continue Toprol and digoxin for rate control. Continue Coumadin.
Continue Farxiga.
Had MRI of the liver today.
Original Note:
Today's Communication / Plan
-
Cont Bumex 3 mg IV BID
Would be cautious with at-home metolazone dosing due to hypokalemia
Extra KCl 40 meq x1 now
Impression / Plan
-
PCP: Dr. Sanjay Carrera
Primary Medical Technologist Chief: Dr. CHAVA Alejandro
Impression:
Admitted with confusion/metabolic encephalopathy 07/20/24
Acute on chronic hypoxemic respiratory failure
Acute on chronic HFpEF
Hypokalemia
AIYANA
Admission to [facility] for syncope vs fall 07/10-07/11/24
LE wounds
Persistent AFib,
Chronic Coumadin therapy, managed by cardiology
NSVT, 07/21/24
Essential HTN
DM2
h/o TAVR 2021
Severe pulm HTN
COPD, chronically on 3L NC
h/o R post CVA
h/o R parietal meningioma
CHAS: intolerant of CPAP
Hyperlipidemia
Morbid obesity
Chronic lymphedema
History of PE
Uncharacterized liver lesion
Subclinical hyperthyroidism
History of gastric bypass
Depression/anxiety/insomnia with history of serotonin syndrome admission 03/2024
Polypharmacy
History of falls
Hypokalemia
Echo 07/10/2024: EF 70 to 75%, evidence of RV pressure and volume overload, mild concentric LVH, MAC, mild MS with peak/mean gradients 9/5 mmHg, trace MR, number 29 mm Medtronic Evolut TAVR with peak/mean gradient 6/3 mmHg, moderate to severe TR, PAP
79 mmHg, severely dilated right heart, no significant change compared to prior
Echo 07/21/24:EF 70-75%, dilated RV with RV hypokinesis, mean mitral gradient 5, mild MR, status post Evolut transcatheter aortic valve with mean gradient of 6 and no AI, moderate TR with PA pressure 73
RIGHT HEART CATHETERIZATION Date of Procedure: 07/31/24
Hemodynamics (mmHg):
RA (m) : 21
RV (s/d,m) : 76/10, 18
PA (s/d, m) : 76/33, 48
PCWP (m) : 38
Cardiac Output : 2.9 L/min
Cardiac Index : 1.4 L/min/m-2
Systemic vascular resistance: 21 Wood units or 1684 [id number]-db(-5)
Pulmonary vascular resistance: 3.5 Wood units or 281 ahubh-xoq-ye(-5)
CONCLUSION:
1. Elevated right and left ventricular filling pressures
Plan:
-Weight is down 29 lbs this admission with Bumex 3 mg IV BID and metolazone 2.5 mg on 07/27/24, 07/28/24 and 08/02/24. Patient was taking torsemide 40 mg BID prior to admission and was not using a metolazone regimen at home prior to admission.
-Patient becomes hypokalemic with metolazone dosing. KCl 40 mEq BID currently ordered plus K rider ordered by hospitalist attending with the last dose being given on 08/03/2024. Will give an extra dose of KCl 40 mEq x 1 now, ordered by me.
-Magnesium normal at 2.2 on
-PCWP was 38 which correlated with a weight of 256 lbs on 07/31/2024. Patient is down 5 lbs from then and is currently below previous dry weight
-Oxygen requirements are slowly improving, down to 6 L NC and previously required high flow this admission. Outpatient O2 requirement is 3 L NC
-Pulmonology note reviewed and no indication for pulmonary vasodilators based on RHC at this time
-Cre stable at 0.8 on 08/03/24.
-GDMT with Toprol XL 50 mg HS.
-No ACEI/ARB/Arni/aldosterone antagonist, meds previously stopped due to hypotension.
-Known persistent atrial fibrillation, heart rate control with Toprol XL and digoxin. Digoxin level has been stable.
-INR 2.15 on 08/03/24. Warfarin 2.5 mg daily ordered by hospitalist attending
-INR goal of 2-3 as managed by cardiology as an outpatient using a home monitor.
-EF preserved with TAVR mean gradient 6 mmHg and no AI by echo July 21, 2024 EF 70-75%
Progress Note - Medical Technologist Chief
Subjective
Date of Service: August 03, 2024
She cannot believe how much weight she has lost, her breathing is better, she was able to lay supine for the entirety of her liver MRI today without orthopnea
Objective
Labs:
08/01/24 04:25
08/03/24 04:36
Labs
Hgb 17.0 g/dL (12.0-16.0) H 08/01/24 04:25
Hct 51.3 % (37.0-47.0) H 08/01/24 04:25
Plt Count 231 10^3/uL (130-400) D 08/01/24 04:25
PT 24.5 Sec (11.4-14.6) H 08/03/24 04:36
INR 2.15 08/03/24 04:36
Sodium 138 mmol/L (135-145) 08/03/24 04:36
Potassium 3.3 mmol/L (3.5-5.1) L 08/03/24 04:36
BUN 34 mg/dl (7-17) H 08/03/24 04:36
Creatinine 0.8 mg/dL (0.6-1.0) 08/03/24 04:36
Glucose 152 mg/dl (70-99) H 08/03/24 04:36
Digoxin 0.5 ng/ml (0.8-2.0) L 07/20/24 11:55
Vital Signs and I&O:
Vital Signs
Temp Pulse Resp BP Pulse Ox
97.8 F 89 15 101/71 98
08/03/24 11:31 08/03/24 07:38 08/03/24 07:33 08/03/24 07:38 08/03/24 08:53
Vital Signs
Temp Pulse Resp BP Pulse Ox
97.8 F 89 15 101/71 98
08/03/24 11:31 08/03/24 07:38 08/03/24 07:33 08/03/24 07:38 08/03/24 08:53
Intake & Output
08/01/24 08/02/24 08/03/24 08/04/24
06:59 06:59 06:59 06:59
Intake Total 990 / 990 1750 / 1750 420 / 420
Output Total 2200 / 2200 960 / 960 1875 / 1875
Balance -1210 / -1210 790 / 790 -1455 / -1455
Physical Exam
Physical Exam
GEN: NAD
HEENT: MMM
LUNGS: 6 L NC, no audible wheeze
CV: Afib on tele
EXT: +1 B/L LE edema
NEURO: Gross non-focal
SKIN: No rash
[2024-08-03] MEDS: COUMADIN 2.5 MG PO (17:45)
[2024-08-03] MEDS: NOVOLOG FLEXPEN-LOW RESISTANCE 2 UNITS SC (17:50)
[2024-08-03 18:00] LABS: Glucose - Point of Care 221 mg/dl (70-99)
[2024-08-03] MEDS: TYLENOL 650 MG PO (20:48)
[2024-08-03] MEDS: REQUIP 0.25 MG PO (20:49)
[2024-08-03] MEDS: RESTORIL 15 MG PO (20:49)
[2024-08-03 23:11] LABS: Glucose - Point of Care 214 mg/dl (70-99)
--- NOTE | 2024-08-03 23:54 | RESPNOTE ---
pt required help with putting self on home CPAP
[2024-08-04] VITALS (9 sets, daily range): BP systolic 77–111; BP diastolic 49–97; BMI 44.9
--- NOTE | 2024-08-04 04:37 | PTCARENOTE ---
refused home cpap hs. on 6L MF. pt able to sleep. no gi/gu complaints. afib on tele. denies any pain. foam on right buttock changed. heels floated. call avitia / tray table within reach.
[2024-08-04 04:44] LABS: INR 1.87
[2024-08-04 05:15] LABS: ALT (SGPT) 39 U/L (0-35); AST (SGOT) 64 U/L (14-36); Albumin 3.9 g/dl (3.5-5.0); Alkaline Phosphatase 323 U/L (38-126); Blood Urea Nitrogen 33 mg/dl (7-17); Calcium 9.8 mg/dl (8.4-10.2); Carbon Dioxide 35 mmol/L (22-30); Chloride 91 mmol/L (98-107); Estimated Creatinine Clearance 91 ml/min; Glucose 167 mg/dl (70-99); Magnesium 2.3 mg/dl (1.6-2.3); Potassium 3.4 mmol/L (3.5-5.1); Sodium 139 mmol/L (135-145); Total Bilirubin 3.1 mg/dl (0.2-1.3); eGFR > 60.00
[2024-08-04] MEDS: SYMBICORT 80/4.5 MCG INHALER 2 PUFF INH (07:11)
[2024-08-04] MEDS: SPIRIVA RESPIMAT 2.5 MCG 2 PUFF INH (07:11)
[2024-08-04 08:39] LABS: Glucose - Point of Care 158 mg/dl (70-99)
[2024-08-04] MEDS: HYDROPHOR 1 APPLIC TOPICAL (08:43)
[2024-08-04] MEDS: OSCAL 500 + D 500 MG PO (08:44)
[2024-08-04] MEDS: NEURONTIN 300 MG PO ×3 (08:44→21:22)
[2024-08-04] MEDS: VITAMIN B-12 2500 MCG PO (08:44)
[2024-08-04] MEDS: FARXIGA 10 MG PO (08:44)
[2024-08-04] MEDS: LIPITOR 10 MG PO (08:44)
[2024-08-04] MEDS: THERAGRAN 1 TABLET PO (08:44)
[2024-08-04] MEDS: CYMBALTA DELAYED RELEASE 60 MG PO (08:44)
[2024-08-04] MEDS: KCL 270 MEQ IV (08:45)
[2024-08-04] MEDS: KCL 40 MEQ PO ×2 (08:45→22:47)
[2024-08-04] MEDS: BUMEX 3 MG IV (08:47)
[2024-08-04] MEDS: NOVOLOG FLEXPEN-LOW RESISTANCE 1 UNITS SC ×2 (08:47→14:25)
[2024-08-04] MEDS: DESENEX/MITRAZOL/ZEASORB 1 APPLIC TOPICAL ×2 (08:48→21:28)
[2024-08-04] MEDS: TOPROL XL 50 MG PO (08:48)
--- NOTE | 2024-08-04 08:54 | PTCARENOTE ---
Patient received from overnight babysitter. Patient is resting comfortably in bed. AAO, little continued confusion this AM, VSS. No events noted overnight. No complaints of pain at this time. Patient wore BiPAP for approx. 1-2hrs last night. Will
attempt to get OOB to chair, was OOB to chair all day yesterday. Patient currently on 6L Midflow N/C, continue to wean as tolerated. Continuing diuresis. No further testing scheduled at this time. Call avitia in reach.
--- NOTE | 2024-08-04 09:10 | W.PN.CARDCBS ---
Addendum entered and electronically signed by Maicol Kennedy MD 08/04/24 11:12:
I saw and examined the patient.
The AIRPORT ATTENDANT or PA's note was reviewed and I agree with the note.
Comment: General: Well developed, well nourished in NAD.
Neck: Supple, no JVD, HJR, carotids +2 B/L, no bruits bilaterally.
Heart: Non displaced PMI, RRR, no murmurs, No S3, S4, no rubs.
Lungs: Scattered rhonchi
Extremities: Chronic venous stasis changes
Neuro: Grossly nonfocal, awake, alert and oriented x3.
Will change to p.o. Bumex. Stable cardiology status for discharge. Will arrange follow-up.
Original Note:
Today's Communication / Plan
-
Replete potassium
Continue Coumadin, Toprol
Ongoing IV diuresis, consider transition to oral diuretic in the next 24 to 48 hours
Impression / Plan
-
PCP: Dr. Sanjay Carrera
Primary Ecommerce Merchandising Manager: Dr. CHAVA Alejandro
Impression:
Admitted with confusion/metabolic encephalopathy 07/20/24
Acute on chronic hypoxemic respiratory failure
Acute on chronic HFpEF
Hypokalemia
AIYANA
Admission to [facility] for syncope vs fall 07/10-07/11/24
LE wounds
Persistent AFib,
Chronic Coumadin therapy, managed by cardiology
NSVT, 07/21/24
Essential HTN
DM2
h/o TAVR 2021
Severe pulm HTN
COPD, chronically on 3L NC
h/o R post CVA
h/o R parietal meningioma
CHAS: intolerant of CPAP
Hyperlipidemia
Morbid obesity
Chronic lymphedema
History of PE
Uncharacterized liver lesion
Subclinical hyperthyroidism
History of gastric bypass
Depression/anxiety/insomnia with history of serotonin syndrome admission 03/2024
Polypharmacy
History of falls
Hypokalemia
Echo 07/10/2024: EF 70 to 75%, evidence of RV pressure and volume overload, mild concentric LVH, MAC, mild MS with peak/mean gradients 9/5 mmHg, trace MR, number 29 mm Medtronic Evolut TAVR with peak/mean gradient 6/3 mmHg, moderate to severe TR, PAP
79 mmHg, severely dilated right heart, no significant change compared to prior
Echo 07/21/24:EF 70-75%, dilated RV with RV hypokinesis, mean mitral gradient 5, mild MR, status post Evolut transcatheter aortic valve with mean gradient of 6 and no AI, moderate TR with PA pressure 73
RIGHT HEART CATHETERIZATION Date of Procedure: 07/31/24
Hemodynamics (mmHg):
RA (m) : 21
RV (s/d,m) : 76/10, 18
PA (s/d, m) : 76/33, 48
PCWP (m) : 38
Cardiac Output : 2.9 L/min
Cardiac Index : 1.4 L/min/m-2
Systemic vascular resistance: 21 Wood units or 1684 oegte-iwj-kr(-5)
Pulmonary vascular resistance: 3.5 Wood units or 281 wwjga-dbl-xd(-5)
CONCLUSION:
1. Elevated right and left ventricular filling pressures
Plan:
-Weight is down 28 lbs this admission with Bumex 3 mg IV BID and metolazone 2.5 mg on 07/27/24, 07/28/24 and 08/02/24. Patient was taking torsemide 40 mg BID prior to admission and was not using a metolazone regimen at home prior to admission.
-Patient becomes hypokalemic with metolazone dosing. Replete K+ 3.4, getting IV 40 meq in addition to 40 meq BID (08/04)
-Magnesium normal at 2.3 on 08/04
-RHC PCWP was 38 which correlated with a weight of 256 lbs on 07/31/2024. Patient is currently below previous dry weight
-Oxygen requirements ongoing 6 L NC to 8 LPM via midflow canula. Previously required high flow this admission. Outpatient O2 requirement is 3 L NC
-Pulmonology note reviewed and no indication for pulmonary vasodilators based on RHC at this time
-Cre stable at 0.7 on 08/04/24.
-GDMT with Toprol XL 50 mg HS. Hypotension continues to prevent initiation of ACEI/ARB/Arni/aldosterone antagonist. Meds previously stopped due to hypotension as well.
-Known persistent atrial fibrillation, heart rate control with Toprol XL and digoxin. Digoxin level has been stable.
-INR 2.15 on 08/03/24. Continue Warfarin 2.5 mg daily
-INR goal of 2-3 as managed by cardiology as an outpatient using a home monitor.
-EF preserved with TAVR mean gradient 6 mmHg and no AI by echo July 21, 2024 EF 70-75%
-Abnormal LFTs. MRI of abdomen with isolated intrahepatic space occupying mass. Uncertain etiology. Radiology recommending short-term follow-up with imaging surveillance in 2 to 3 months
-Appreciate PT input. Patient would benefit from group home facility
Progress Note - Ecommerce Merchandising Manager
Subjective
Date of Service: August 04, 2024
Patient seen and examined. Patient's at bedside. Patient sitting up on side of bed and notes she feels significantly better than admission. Was able to sleep well last night without difficulty.
Objective
Labs:
08/01/24 04:25
08/04/24 04:14
Labs
Hgb 17.0 g/dL (12.0-16.0) H 08/01/24 04:25
Hct 51.3 % (37.0-47.0) H 08/01/24 04:25
Plt Count 231 10^3/uL (130-400) D 08/01/24 04:25
PT 22.0 Sec (11.4-14.6) H 08/04/24 04:14
INR 1.87 08/04/24 04:14
Sodium 139 mmol/L (135-145) 08/04/24 04:14
Potassium 3.4 mmol/L (3.5-5.1) L 08/04/24 04:14
BUN 33 mg/dl (7-17) H 08/04/24 04:14
Creatinine 0.7 mg/dL (0.6-1.0) 08/04/24 04:14
Glucose 167 mg/dl (70-99) H 08/04/24 04:14
Digoxin 0.5 ng/ml (0.8-2.0) L 07/20/24 11:55
Vital Signs and I&O:
Vital Signs
Temp Pulse Resp BP Pulse Ox
97.6 F 91 14 111/97 94
08/04/24 04:35 08/04/24 08:47 08/04/24 07:13 08/04/24 08:47 08/04/24 07:13
Vital Signs
Temp Pulse Resp BP Pulse Ox
97.6 F 91 14 111/97 94
08/04/24 04:35 08/04/24 08:47 08/04/24 07:13 08/04/24 08:47 08/04/24 07:13
Intake & Output
08/02/24 08/03/24 08/04/24 08/05/24
06:59 06:59 06:59 06:59
Intake Total 1750 / 1750 420 / 420
Output Total 960 / 960 1875 / 1875 2300 / 2300
Balance 790 / 790 -1455 / -1455 -2300 / -2300
Physical Exam
Physical Exam
GEN: No distress, awake, Ox3, sitting on side of bed, morbidly obese
HEENT: supple, anicteric, mmm
LUNGS: Few scattered crackles at left base otherwise CTA, no wheezes/rales
CV: Irregularly irregular, rate controlled, S1/S2, 1/6 syst murmur
ABD: soft, BS+, NT/ND
EXT: Trace lower extremity edema, skin changes consistent with chronic venous stasis
NEURO: Gross non-focal
SKIN: No rash, warm, dry, pink
--- NOTE | 2024-08-04 10:07 | W.PN.HOSP.TC ---
Today's Communication/Plan
-
cont IV diuresis as per cardio
aggressive potassium repletion
Assessment / Plan
Assessment / Plan
68yo F with PMHx of Afib, asthma, chronic hypoxic respiratory failure on 3L home O2, Hx of CVA, GERD, HTN, HLD, DM, anxiety d/o, CHAS on CPAP (non-compliant), TAVR on coumadin, R parietal meningioma, HX of PE admitted with AMS, managed for CHF
exacerbation and possible UTI. Patient with significant pulmonary HTN but not compliant with CPAP that contributes to the problem
A/P:
#Acute metabolic encephalopathy 2/2 acute on chronic hypoxic hypercarbic respiratory failure 2/2 HFpEF exacerbation
#Pulmonary HTN
#CHAS on CPAP
#Asthma/COPD not in exacerbation
Bronchodilators
Diuretics, daily weight, follow electrolytes
Pulmonology and Cardiology follows
s/p R heart cath: increased pressures with low CI
CT showed no pulmonary embolism, but suggest pulmonary hypertension and elevated right heart pressures
WEan off O2 to home level of 3L
Emphasize nightly CPAP
BRANDON hose stockings
bronchodipators
#Hypokalemia
replete and follow
#E.coli UTI
completed ceftriaxone
#AIYANA
cardiorenal
resolved
#Hx of syncope
on ekg monitor tech by DCA
#Liver lesion seen on CT in Mar 2024
#Elevated Alk.phos
#Transaminitis
#Direct bilirubinemia
No RUQ pain
Since Mar 2024
MR abd when respiratory status improving, but suspect liver congestion 2/2 CHF
#DM type 2 with neuropathy
Accuchecks, Insulin SS, DM diet
#Anxiety/depression
#Permanent Afib
#Essential HTN
#HLD
#Raynaulds
#Hx of meningioma
#RLS
cont home meds
#Stage 3 R buttocks pressure injury
Wound care
offloading
#Morbid obesity
BMI 45.4
decrease calorie intake
DVT ppx Coumadin
Full code
I have spent at least 38min reviewing chart, test results, communication with consultants and providing direct patient care
Anticipated Discharge: 24 - 48 hours
Subjective/Interval History
-
Date of Service: August 04, 2024
Objective Data
-
Labs:
Laboratory Results
08/04/24 08/04/24
04:14 18:00
PT 22.0 H
INR 1.87
Sodium 139
Potassium 3.4 L Pending
Chloride 91 L
Carbon Dioxide 35 H
BUN 33 H
Creatinine 0.7
Glucose 167 H
Calcium 9.8
Total Bilirubin 3.1 H
AST 64 H
ALT 39 H
Alkaline Phosphatase 323 H
Vital Signs:
Vital Signs
Temp Pulse Resp BP Pulse Ox
97.6 F 91 14 111/97 94
08/04/24 04:35 08/04/24 08:47 08/04/24 07:13 08/04/24 08:47 08/04/24 07:13
I&O
08/03/24 08/04/24 08/05/24
06:59 06:59 06:59
Intake Total 420 / 420
Output Total 1875 / 1875 2300 / 2300
Balance -1455 / -1455 -2300 / -2300
Review of Systems
-
History Source: Patient
All other systems: Reviewed and negative
Physical Exam
-
General: No Apparent Distress
HEENT: Normocephalic
Respiratory: Clear to Auscultation
Cardiac: Regular Rhythm
GI: Soft
Musculoskeletal: No Clubbing, No Cyanosis, Edema, Right Lower Extrem and Edema, Left Lower Extrem
Neuro: Awake, Alert, Oriented and AO x 3
Psych: Calm
--- NOTE | 2024-08-04 11:14 | CON.ONC ---
Documented by User: LARRY Palmer 08/04/24 11:16
Impression
Impression
1.6cm liver lesion
Plan
Plan
consider liver biopsy. Dr. Jackson d/w hospitalist regarding evaluation. currently on warfarin with INR 2-3, would need to hold and bridge to biopsy with heparin if bx pursued
will follow for pathology
Patient History
Patient Medication
�Medication �Instructions �Recorded �Confirmed �Last Taken �Type
duloxetine 60 mg capsule,delayed 60 mg PO DAILY Mental 01/11/14 07/20/24 07/19/24 History
release Health/Anxiety
atorvastatin 10 mg tablet 10 mg PO DAILY High cholesterol 02/10/22 07/20/24 07/20/24 History
metformin 500 mg tablet 500 mg PO BID Diabetes 02/10/22 07/20/24 07/19/24 08:00 History
metoprolol succinate 50 mg 100 mg PO DAILY Blood pressure 02/10/22 07/20/24 07/19/24 History
tablet,extended release 24 hr
revefenacin 175 mcg/3 mL solution 175 mcg inhalation R DAILY 02/10/22 07/20/24 07/19/24 History
for nebulization (Yupelri) Lung/breathing issues
arformoterol 15 mcg/2 mL solution 2 ml inhalation R BID 04/02/22 07/20/24 07/19/24 08:00 History
for nebulization (Brovana) Lung/breathing issues
budesonide 0.5 mg/2 mL suspension 0.5 mg inhalation R BID 04/02/22 07/20/24 07/19/24 08:00 History
for nebulization Lung/breathing issues
cyanocobalamin (vitamin B-12) 2,500 mcg sublingual DAILY 04/02/22 07/20/24 04/28/24 History
2,500 mcg sublingual tablet Supplement
(Vitamin B-12)
calcium 500 mg (as 500 mg PO DAILY Supplement 04/08/22 07/20/24 04/28/24 History
carbonate)-vitamin D3 5 mcg (200
unit) tablet (Oyster Shell
Calcium-Vitamin D3)
biotin 10,000 mcg chewable tablet 10,000 mcg PO DAILY Supplement 01/19/24 07/20/24 04/28/24 History
(Hair, Skin and Nails (biotin))
digoxin 125 mcg (0.125 mg) tablet 125 mcg PO SUTUTHSA@0800 Heart 03/03/24 07/20/24 07/18/24 History
Disease/Condition
metoprolol succinate 50 mg 50 mg PO HS Arrhythmia 03/03/24 07/20/24 04/28/24 History
tablet,extended release 24 hr
potassium chloride 20 mEq 20 meq PO DAILY #3 tabs 03/08/24 07/20/24 07/19/24 Rx
tablet,extended release
gabapentin 300 mg capsule 300 mg PO HS Pain 04/29/24 07/20/24 04/28/24 History
gabapentin 300 mg capsule 600 mg PO DAILY@1500 Pain 04/29/24 07/20/24 04/28/24 History
ropinirole 0.25 mg tablet 0.25 mg PO HS Neurological 04/29/24 07/20/24 07/18/24 History
Condition
temazepam 15 mg capsule 15 mg PO HS Sleep 04/29/24 07/20/24 07/18/24 History
therapeutic multivitamin 1 tab PO DAILY Supplement 04/29/24 07/20/24 04/28/24 History
empagliflozin 10 mg tablet 10 mg PO DAILY Diabetes 07/20/24 07/20/24 07/19/24 History
(Jardiance)
warfarin 2 mg tablet 2 mg PO DAILY Blood Clot 07/20/24 07/20/24 07/20/24 History
Prevention/Tx
torsemide 20 mg tablet 40 mg PO BID@0800,1600 Fluid 07/21/24 07/20/24 07/19/24 08:00 History
Retention/Swelling
Active Medications
Generic Name Dose Route Start Last Admin
Trade Name Freq PRN Reason Stop Dose Admin
Acetaminophen 650 mg 07/23/24 13:19 08/03/24 20:48
Acetaminophen 325 Mg Tablet PO 08/20/24 13:18 650 mg
Q6HPRN PRN Administration
mild pain/ fever>100.5F
Albuterol Sulfate 2.5 mg 07/24/24 16:37
Albuterol Nebs 2.5 Mg/3 Ml Ampul INH
R Q4HPRN PRN
sob or wheezing
Protocol
Atorvastatin Calcium 10 mg 07/21/24 08:00 08/04/24 08:44
Atorvastatin (Lipitor) 10 Mg Tablet PO 08/18/24 07:59 10 mg
DAILY MARION Administration
Budesonide/Formoterol Fumarate 2 puff 08/02/24 20:00 08/04/24 07:11
Symbicort Inhaler 80/4.5 INH 08/30/24 19:59 2 puff
R BID MARION Administration
Protocol
Bumetanide 3 mg 07/25/24 16:00 08/04/24 08:47
Bumetanide (0.25 Mg/1 Ml) 4 Ml Vial IV 08/22/24 15:59 3 mg
BID@0800,1600 MARION Administration
Calcium/Vitamin D 500 mg 07/21/24 08:00 08/04/24 08:44
Calcium Carbonate 500 Mg/Vitamin D 5 Mcg (200 Units) Tablet PO 08/18/24 07:59 500 mg
DAILY MARION Administration
Cyanocobalamin 2,500 mcg 07/21/24 08:00 08/04/24 08:44
Cyanocobalamin 1,000 Mcg Tablet PO 08/18/24 07:59 2,500 mcg
DAILY MARION Administration
Dapagliflozin 10 mg 07/21/24 08:00 08/04/24 08:44
Dapagliflozin (Farxiga) 10 Mg Tablet PO 08/18/24 07:59 10 mg
DAILY MARION Administration
Dextrose 12.5 grams 07/20/24 17:38
Dextrose 50% (0.5 Grams/Ml) 50 Ml Syringe IV 08/17/24 17:37
[id number] PRN
hypoglycemia
Protocol
Digoxin 125 mcg 07/22/24 08:00 08/03/24 07:38
Digoxin 125 Mcg Tablet PO 08/19/24 07:59 125 mcg
SUTUTHSA@0800 MARION Administration
Duloxetine HCl 60 mg 07/21/24 08:00 08/04/24 08:44
Duloxetine Delayed Release 60 Mg Capsule PO 08/18/24 07:59 60 mg
DAILY MARION Administration
Emollient Ointment 0 applic 07/21/24 14:00 08/04/24 08:43
Petrolatum/Mineral Oil (Hydrophor) Oint 100 Gram TOPICAL 08/18/24 13:59 1 applic
DAILY MARION Administration
Gabapentin 300 mg 07/21/24 22:00 08/04/24 08:44
Gabapentin 300 Mg Capsule PO 08/18/24 21:59 300 mg
TID MARION Administration
Glucagon 1 mg 07/20/24 17:38
Glucagon 1 Mg Vial IM 08/17/24 17:37
PRN PRN
hypoglycemia
Protocol
Insulin Aspart 0 units 07/20/24 17:38 08/04/24 08:47
Insulin Aspart Low Resistance 300 Units/3 Ml Pen.Injctr SC 08/17/24 17:37 1 units
AC MARION Administration
Protocol
Metoprolol Succinate 50 mg 07/20/24 22:00 08/03/24 20:49
Metoprolol 50 Mg Extended Release Tablet PO 08/17/24 21:59 50 mg
HS MARION Administration
Metoprolol Succinate 50 mg 07/26/24 09:48 08/04/24 08:48
Metoprolol 50 Mg Extended Release Tablet PO 08/23/24 09:47 50 mg
DAILY MARION Administration
Miconazole Nitrate 0 applic 07/20/24 21:00 08/04/24 08:48
Miconazole Powder Bottle TOPICAL 08/17/24 20:59 1 applic
BID MARION Administration
Multivitamins Therapeutic 1 tablet 07/21/24 08:00 08/04/24 08:44
Multivitamin Tablet PO 08/18/24 07:59 1 tablet
DAILY MARION Administration
Potassium Chloride 40 meq 08/04/24 08:00 08/04/24 08:45
Potassium Chloride 20 Meq Extended Release Tablet PO 09/01/24 07:59 40 meq
BID MARION Administration
Ropinirole HCl 0.25 mg 07/20/24 22:00 08/03/24 20:49
Ropinirole 0.25 Mg Tablet PO 08/17/24 21:59 0.25 mg
HS MARION Administration
Sodium Chloride 0 flush 07/20/24 19:00 08/02/24 16:28
Sodium Chloride 0.9% (Flush) Syringe IV 08/17/24 18:59 1 flush
PER PROTOCOL MARION Administration
Sodium Chloride 0.125 ml 08/03/24 13:00
Nss (Pf) 10 Ml Vial For Ativan 0.25 Mg Dose IV 08/31/24 12:59
PRN PRN
IV LORAZEPAM DILUTION
Temazepam 15 mg 07/20/24 22:00 08/03/24 20:49
Temazepam 15 Mg Capsule PO 08/17/24 21:59 15 mg
HS MARION Administration
Tiotropium Clarence 2 puff 08/02/24 11:00 08/04/24 07:11
Tiotropium (Spiriva Respimat) 2.5 Mcg Inhaler INH 08/30/24 10:59 2 puff
R DAILY MARION Administration
Protocol
Warfarin Sodium 2.5 mg 08/02/24 18:00 08/03/24 17:45
Warfarin 2.5 Mg Tablet PO 08/07/24 17:59 2.5 mg
QPM MARION Administration
Physical Exam
Labs
Lab Results
WBC 7.1 10^3/uL (4.8-10.8) 08/01/24 04:25
RBC 4.99 10^6/uL (4.20-5.40) 08/01/24 04:25
Hgb 17.0 g/dL (12.0-16.0) H 08/01/24 04:25
Hct 51.3 % (37.0-47.0) H 08/01/24 04:25
MCV 102.8 fL (81.0-99.0) H 08/01/24 04:25
MCH 34.1 pg (27.0-31.0) H 08/01/24 04:25
MCHC 33.1 g/dL (33.0-37.0) 08/01/24 04:25
RDW 16.8 % (11.5-14.5) H 08/01/24 04:25
Plt Count 231 10^3/uL (130-400) D 08/01/24 04:25
MPV 11.6 fL (7.4-10.4) H 08/01/24 04:25
Abs Immat Gran (auto) 0.0 10^3/uL (0-0.05) 08/01/24 04:25
Absolute Neuts (auto) 4.0 10^3/uL (1.4-6.5) 08/01/24 04:25
Absolute Lymphs (auto) 2.3 10^3/uL (1.2-3.4) 08/01/24 04:25
Absolute Monos (auto) 0.5 10^3/uL (0.1-0.6) 08/01/24 04:25
Absolute Eos (auto) 0.3 10^3/uL (0-0.7) 08/01/24 04:25
Absolute Basos (auto) 0.1 10^3/uL (0-0.2) 08/01/24 04:25
Immature Gran % 0.3 % (0-0.5) 08/01/24 04:25
Neutrophils % 55.3 % (42.2-75.2) 08/01/24 04:25
Lymphocytes % 31.6 % (20.5-51.1) 08/01/24 04:25
Monocytes % 7.6 % (1.7-9.3) 08/01/24 04:25
Eosinophils % 3.5 % (0-6) 08/01/24 04:25
Basophils % 1.7 % (0-2) 08/01/24 04:25
Creatinine 0.7 mg/dL (0.6-1.0) 08/04/24 04:14
Vital Signs
Vital Signs
Temp Pulse Resp BP Pulse Ox
97.6 F 91 14 111/97 93
08/04/24 04:35 08/04/24 08:47 08/04/24 07:13 08/04/24 08:47 08/04/24 10:32

Documented by User: Maicol Jackson MD 08/04/24 13:05
Impression
Impression
1.6cm liver lesion
hepatic steatosis
increased LFTs - hyperbilirubinemia
CHF
h/o COPD
afib
pulm HTN
Plan
Plan
1. Liver lesion - appreciated on CT imaging and MRI abdomen - 1.6cm
-etiology of liver lesion is unclear
-w/ h/o hepatic steatosis/ increased LFTs - unclear if has underlying chronic liver disease - GI eval could be considered
-patient expressed interest in obtaining tissue biopsy for determination of etiology
-discussed w/ hospitalist - IR guided approach would seem reasonable if feasible
-currently on warfarin with INR 2-3, would need to hold and bridge to biopsy with heparin if bx pursued - cardiology managing
-check AFP. CEA, and Ca 19-9
will follow for pathology
Patient History
History of Present Illness
68y/o female seen in oncology consultation regarding liver lesion appreciated on CT and MRI abdomen.
The patient is admitted to [facility] for heart failure and improving clinically.
CT imaging of the abdomen/ pelvis in March 2024 revealed an indeterminate 1.9 cm hypoattenuating right hepatic lobe lesion. Hepatic steatosis was appreciated on abdominal US on 03/03/24. A f/u MRI abdomen was performed on 08/03/24 revealing an
isolated intrahepatic space-occupying lesion of Uncertain etiology measuring 1.6cm in the right lobe.
She denies significant alcohol use. Denies h/o hepatitis. LFTs during hospitalization do reveal elevated AST/ ALT, alkaline phosphatase and total bilirubin w/ increased direct component.
The patient has baseline SOB in the setting of CHF/ COPD/ pulmonary HTN. No abdominal pain. No blood in her stool or urine. She notes that she has been up to date on her colonoscopy screening as well as breast cancer screening. No fevers, chills, or
night sweats. No recent unintentional weight loss.
Past-Medical/Surgical History
Past Medical History
Past Medical History: Reports Other (atrial fibrillation on Coumadin, aortic stenosis status post TAVR, HFpEF, COPD, chronic hypoxemic respiratory failure on 3 L, obstructive sleep apnea, pulmonary hypertension, moderate to severe tricuspid
regurgitation, hypertension, hyperlipidemia, anxiety, Raynaud's, meningioma,)
Past Surgical History: Reports None
Social History
Tobacco: Non-smoker
Alcohol: None
Drug: None
Family History
Family History: Not pertinent
Allergies as per chart
Review of Systems
-
An ROS was performed w/ pertinent findings as per HPI.
Physical Exam
-
General: Well Developed and No Apparent Distress
HEENT: Negative Jaundice
Cardiology: Normal Sinus Rhythm
Pulmonary: Other (decreased breath sounds at bases)
GI: Soft
Extremities: Other (venous stasis changes)
Neurology: Non Focal
[2024-08-04 13:46] LABS: Direct Bilirubin 1.5 mg/dl (0.0-0.4)
--- NOTE | 2024-08-04 13:49 | CON.GI ---
Addendum entered and electronically signed by Riana Bellamy DO 08/04/24 16:21:
The patient was seen and examined by me independently in collaboration with the nurse practitioner.
Past medical history/social history/medications/allergies/family history reviewed.
Lab data and imaging data reviewed.
Carlos romero is a 68-year-old female with past medical history of COPD, hypertension, hyperlipidemia, CHAS intolerant to CPAP, aortic stenosis status post TAVR, A-fib on Coumadin, pulmonary hypertension, chronic hypoxic and hypercapnic respiratory
failure on 3 L of home O2,HFpEF, admitted with acute decompensated heart failure with persistent hypoxemia with findings of severe pulmonary hypertension with PASP 45-50 mmHg and course c/b atrial flutter with RVR. Overall, she has improved with
diuresis. GI is consulted for persistent elevation in liver enzymes and indeterminate liver lesion seen on MRI.
Abdominal US 08/04/24: 20 mm nonspecific echogenic lesion within the posterior RIGHT hepatic lobe which corresponds to the abnormality seen on prior MRI. Cholelithiasis.
MRI Abdomen w/wo 08/03/24: The liver is top normal in size. In the posterior segment of hte right lobe there is an intrahepatic space-occupying lesion measuring 1.6 cm, diminished signal intesnity on T1. On T2, mild increased signal intensity is
demonstrated. Indistinct margins, no enhancement following IV contrast and no restricted diffusion. no restricted diffusion. Large differential (biliary hamartoma, biliary cystadenoma, IPMN, isolated cystic hypovascular metastatic lesion felt
unlikely), unclear etiology given these findings. Evidence of atrophy of the pancreas in the region of the neck and proximal body with associated mild distension of the main PD measuring up to 5 mm. No ductal dilation in jo ann distal body and tail.
Recommend repeat MRI in 2-3 months.
Tbili 3.1, Dbili 1.5, AST 64, ALT 39, Alk phos 323
CEA, AFP, CA 19-9 pending
Upon review of prior imaging, indeterminate liver lesion seen on prior CT scan.
I feel she has 2 separate issues--a liver lesion of unknown etiology and elevated liver enzymes. I do not feel the liver lesion is the cuase of her elevated LFTs, which are likely the result of congestive hepatopathy and/or DILI. She has had similar
patterns of elevations in the past, which have resolved.
A/P:
-trend LFTs, I anticipate they will improve as she is medically optimized
-check hepatitis serologies
-ultimately, we do not know the etiology of her liver lesion, oncology recommending IR liver biopsy, which is difficult in her case as she is on coumadin and would require bridging with lovenox. It is also very possible this represents a completely
benign etiology and with surveillance imaging, can be better characterize to a point where no liver biopsy is necessary. She is medically complex, and proceeding with a possibly unnecessary intervention is not in her best interest, when its possibly
avoidable. I recommend outpatient follow-up with Hepatology, Dr. Gil. I discussed with with the patient at length. He can review the imaging and determine if perhaps another imaging study is favored over moving forward with liver biopsy.
Original Note:
Consultation
-
Date/Time Consultation Requested: 08/04/24 1300
Date/Time Consultation Performed: 08/04/24 1345
Requesting Provider: Maurisio Mari MD
Performing Provider: LARRY Tilley, Mirian Bellamy DO
Reason for Consultation: increased LFT's
Medical History
Chief Complaint / HPI
Chief Complaint: increased LFT's no complaints
History of Present Illness:
Pt is a 68yo with hx afib on Warfarin, asthma, COPD, HFPEF, pulm HTN, chronic hypoxic resp failure on 3 liter O2, CVA GERD, HTN, hyperlipidemia, DM, anxiety, fibromyalgia, CHAS on Cpap, TAVR, parietal meningioma, PE, DJD, prior bariatric surgery
and recent [facility] admission with syncope and fall 07/2024. She presented to 07/20 with metabolic encephalopathy with hypoxemia on 07/20 with noted AIYANA, hypoxemia, aflutter with RVR, UTI, CHF with cath completed 07/31 elevated right and left
ventricular filling pressures. She is noted with elevated LFT's but noted with progressive increase. On admission bili 4.3, AST 44, ALT 32, alk phos 303 then 08/04 bili 3.1, D bili 1.5, AST 64, ALT 39 alk phos 323. Pt also noted with concern for
liver mass. 08/03 MRI with 1.6 cm posterior segment of right lobe of liver of uncertain etiology though likely not simple cysts. This does not have typical appearance of an hemangioma, though could represent atypical hypovascular hemangioma. Nor does
it have an appearance of infection/abscess. Other possible considerations may include biliary hamartoma, biliary cystadenoma, or intraductal papillary neoplasm of the bile duct. Isolated cystic hypovascular metastatic lesion is felt to be unlikely.
US with similar finding and review of CT 03/2024 also noted 1.9cm hypoattenuation right hepatic lesion which was new at that time.
At this time with drifting off in exam but answering questions and denies any GI issue with odynophagia, dysphagia, GERD, nausea, vomiting, abdominal pain, diarrhea, constipation or bleeding. She denies any excessive ETOH, Tylenol, supplement
use. No hx hepatitis or old tatoos.
Past Medical History
Past Medical History: Arrhythmias (afib, NSVT), Asthma, CHF, COPD, CVA, Fibromyalgia, GERD, HTN, Hypercholesterolemia, Hyperthyroidism, NIDDM, Psychiatric (anxiety/depression ) and Other (PE, hypoxemia, parietal meningioma, raynaud's, RLS, obesity,
chronic wounds, DJD, liver lesion, falls, lymphedema, pulm HTN)
Past Surgical History: Cardiac (TAVR), Orthopedic (L TKR, R TKR) and Other (bariatric surgery at [facility] 2012)
Social History
Tobacco: Former Smoker
Alcohol: None
Drug: None
Personal:
Living: With Family
Employment: Not Employed
Family History
Family History: Other (no family hx liver issues )
Allergies / Home Medications
Allergy/AdvReac Type Severity Reaction Status Date / Time
amoxicillin trihydrate Allergy patient Verified 07/20/24 11:25
[From Augmentin] states
severe
nausea and
intestinal
pain
cat dander Allergy Sinus Verified 07/20/24 11:25
congestion
cigarette smoke Allergy Positive Verified 07/20/24 11:25
skin test
to tobacco
dog dander Allergy Sinus Verified 07/20/24 11:25
congestion
grass pollen Allergy Sinus Verified 07/20/24 11:25
congestion,
cough
levofloxacin [From Levaquin] Allergy GI Symptoms Verified 07/20/24 11:25
mold Allergy Sinus Verified 07/20/24 11:25
congestion,
cough
Sulfa (Sulfonamide Allergy INTESTINAL Verified 07/20/24 11:25
Antibiotics) PAIN
tree and shrub pollen Allergy Sinus Verified 07/20/24 11:25
congestion,
cough
�Medication �Instructions �Recorded
duloxetine 60 mg capsule,delayed 60 mg PO DAILY Mental 01/11/14
release Health/Anxiety
atorvastatin 10 mg tablet 10 mg PO DAILY High cholesterol 02/10/22
metformin 500 mg tablet 500 mg PO BID Diabetes 02/10/22
metoprolol succinate 50 mg 100 mg PO DAILY Blood pressure 02/10/22
tablet,extended release 24 hr
revefenacin 175 mcg/3 mL solution 175 mcg inhalation R DAILY 02/10/22
for nebulization (Yupelri) Lung/breathing issues
arformoterol 15 mcg/2 mL solution 2 ml inhalation R BID 04/02/22
for nebulization (Brovana) Lung/breathing issues
budesonide 0.5 mg/2 mL suspension 0.5 mg inhalation R BID 04/02/22
for nebulization Lung/breathing issues
cyanocobalamin (vitamin B-12) 2,500 mcg sublingual DAILY 04/02/22
2,500 mcg sublingual tablet Supplement
(Vitamin B-12)
calcium 500 mg (as 500 mg PO DAILY Supplement 04/08/22
carbonate)-vitamin D3 5 mcg (200
unit) tablet (Oyster Shell
Calcium-Vitamin D3)
biotin 10,000 mcg chewable tablet 10,000 mcg PO DAILY Supplement 01/19/24
(Hair, Skin and Nails (biotin))
digoxin 125 mcg (0.125 mg) tablet 125 mcg PO SUTUTHSA@0800 Heart 03/03/24
Disease/Condition
metoprolol succinate 50 mg 50 mg PO HS Arrhythmia 03/03/24
tablet,extended release 24 hr
potassium chloride 20 mEq 20 meq PO DAILY #3 tabs 03/08/24
tablet,extended release
gabapentin 300 mg capsule 300 mg PO HS Pain 04/29/24
gabapentin 300 mg capsule 600 mg PO DAILY@1500 Pain 04/29/24
ropinirole 0.25 mg tablet 0.25 mg PO HS Neurological 04/29/24
Condition
temazepam 15 mg capsule 15 mg PO HS Sleep 04/29/24
therapeutic multivitamin 1 tab PO DAILY Supplement 04/29/24
empagliflozin 10 mg tablet 10 mg PO DAILY Diabetes 07/20/24
(Jardiance)
warfarin 2 mg tablet 2 mg PO DAILY Blood Clot 07/20/24
Prevention/Tx
torsemide 20 mg tablet 40 mg PO BID@0800,1600 Fluid 07/21/24
Retention/Swelling
Review of Systems
-
Unable to obtain full review of systems at this time due to: Other (some drifting off in conversation)
History Source: Patient
Constitutional: Reports Weight Loss (with diuresis )
EENT: Reports No Symptoms
Respiratory: Reports Other (chronic hypoxemia in 3 liter O2 )
Abdomen/GI: Reports No Symptoms
: Reports No Symptoms
Neurological: Reports Weakness
Endocrine: Reports No Symptoms
Hematologic/Lymphatic: Reports No Symptoms
Vital Signs
Temp Pulse Resp BP Pulse Ox
97.9 F 91 14 111/97 93
08/04/24 11:02 08/04/24 08:47 08/04/24 07:13 08/04/24 08:47 08/04/24 10:32
Physical Exam
Exam
General: Other (drift off in conversation but answering most questions)
HEENT: Normocephalic and Anicteric
Respiratory: Other (decreased )
Cardiac: Regular Rhythm and Peripheral Edema
GI: Soft, Non Tender and Non Distended
Musculoskeletal: No Clubbing and No Cyanosis
Skin: Warm and Dry
Neuro: Awake and Other (answering questions appropriately )
Psych: Calm
Results
WBC 7.1 10^3/uL (4.8-10.8) 08/01/24 04:25
Hgb 17.0 g/dL (12.0-16.0) H 08/01/24 04:25
Hct 51.3 % (37.0-47.0) H 08/01/24 04:25
MCV 102.8 fL (81.0-99.0) H 08/01/24 04:25
Plt Count 231 10^3/uL (130-400) D 08/01/24 04:25
Absolute Neuts (auto) 4.0 10^3/uL (1.4-6.5) 08/01/24 04:25
PT 22.0 Sec (11.4-14.6) H 08/04/24 04:14
INR 1.87 08/04/24 04:14
Sodium 139 mmol/L (135-145) 08/04/24 04:14
Potassium 3.4 mmol/L (3.5-5.1) L 08/04/24 04:14
Chloride 91 mmol/L (98-107) L 08/04/24 04:14
Carbon Dioxide 35 mmol/L (22-30) H 08/04/24 04:14
BUN 33 mg/dl (7-17) H 08/04/24 04:14
Creatinine 0.7 mg/dL (0.6-1.0) 08/04/24 04:14
Calcium 9.8 mg/dl (8.4-10.2) 08/04/24 04:14
Total Bilirubin 3.1 mg/dl (0.2-1.3) H 08/04/24 04:14
AST 64 U/L (14-36) H 08/04/24 04:14
ALT 39 U/L (0-35) H 08/04/24 04:14
Alkaline Phosphatase 323 U/L (38-126) H 08/04/24 04:14
Diagnostic Image Results:
08/03/24 MR Abdomen W/o & W Contrast
Isolated intrahepatic space-occupying lesion. Uncertain etiology. Although most hepatic cystic lesions are benign, asymptomatic lesions that are diagnosed incidentally, this does not appear to represent a simple cyst. This does not have typical
appearance of an hemangioma, though could represent atypical hypovascular hemangioma. Nor does it have an appearance of infection/abscess. Other possible considerations may include biliary hamartoma, biliary cystadenoma, or intraductal papillary
neoplasm of the bile duct. Isolated cystic hypovascular metastatic lesion is felt to be unlikely. Recommend short-term follow-up imaging surveillance in 2-3 months.
Cholelithiasis.
08/04/24 US Abdomen Limited
20 mm nonspecific echogenic lesion within the posterior RIGHT hepatic lobe which corresponds to the abnormality seen on prior MRI.
Cholelithiasis.
03/03/24 US Abdomen Complete/Upper
IMPRESSION: Findings suggesting diffuse hepatic steatosis.
Numerous gallbladder stones. Gallbladder wall top normal. Negative sonographic Fischer's sign. No biliary tract dilatation.
03/03/24 CT Abd/pelvis Angio W/wo Iv
IMPRESSION:
1. Significantly limited exam. No overt evidence for abdominal aortic aneurysm or large dissection.
2. Indeterminate 1.9 cm hypoattenuating right hepatic lobe lesion, new from prior. Recommend outpatient workup with dedicated MRI abdomen without and with gadolinium contrast.
Prior GI Procedures:
EGD: pt unsure
Colonoscopy: pt unsure
Assessment / Plan
-
Pt is a 68yo with hx afib on Warfarin, asthma, COPD, HFPEF, pulm HTN, chronic hypoxic resp failure on 3 liter O2, CVA GERD, HTN, hyperlipidemia, DM, anxiety, fibromyalgia, CHAS on Cpap, TAVR, parietal meningioma, PE, DJD, prior bariatric surgery
and recent [facility] admission with syncope and fall 07/2024. She presented to 07/20 with metabolic encephalopathy with hypoxemia on 07/20 with noted AIYANA, hypoxemia, aflutter with RVR, UTI, CHF with cath completed 07/31 elevated right and left
ventricular filling pressures. She is noted with elevated LFT's but noted with progressive increase. On admission bili 4.3, AST 44, ALT 32, alk phos 303 then 08/04 bili 3.1, D bili 1.5, AST 64, ALT 39 alk phos 323. Pt also noted with concern for
liver mass. 08/03 MRI with 1.6 cm posterior segment of right lobe of liver of uncertain etiology though likely not simple cysts. This does not have typical appearance of an hemangioma, though could represent atypical hypovascular hemangioma. Nor does
it have an appearance of infection/abscess. Other possible considerations may include biliary hamartoma, biliary cystadenoma, or intraductal papillary neoplasm of the bile duct. Isolated cystic hypovascular metastatic lesion is felt to be unlikely.
US with similar finding and review of CT 03/2024 also noted 1.9cm hypoattenuation right hepatic lesion which was new at that time.
-increased LFT's with some rise during admission
-liver mass unclear etiology
-HFpEF/pulm HTN
-Ecoli UTI
-AIYANA on admission
-recent syncope
other med problems:
-CHAS on CPAP
-prior TAVR
-Asthma/COPD/chronic O2
-DM
-afib
-HTN
-HLD
-hx menigioma
-obesity
-hx bariatric surgery
-lymphedema
PLAN:
etiology of elevated LFT's related to congestion, ? dili with several meds changes in admission vs other-- similar pattern in 03/2024 with admission with fluid overload
cont to trend LFT's
as far as liver lesion option of biopsy vs hepatology evaluation-- with Dr. Gil as similar finding on CT in 03/2024
cont further optimization per cardiac and medical team
appreciate oncology input for bx would need to hold warfarin
further recs per Dr. Bellamy
-
-
Thank you for consultation and allowing me to participate in the patient's care. Please call the television maintenance man GI physician during the after hours with any questions or concerns.
--- NOTE | 2024-08-04 14:33 | W.PN.UPDATE ---
Addendum entered and electronically signed by Maurisio Mari MD 08/04/24 14:50:
As agreed with GI - outpatient biopsy and follow up with field assessor
Original Note:
Update Note
Progress Note Update
Oncology recommend liver lesion biopsy - discussed with IRAD, recommended follow up imaging. Oncology deferred to GI, who confirmed need in biopsy. Will start Warfarin to heparin bridging vs holding off AC - to be discussed with card
[2024-08-04 14:36] LABS: Glucose - Point of Care 166 mg/dl (70-99)
[2024-08-04 17:28] LABS: Glucose - Point of Care 120 mg/dl (70-99)
[2024-08-04] MEDS: NOVOLOG FLEXPEN-LOW RESISTANCE SC (17:45)
[2024-08-04] MEDS: COUMADIN 2.5 MG PO (17:48)
--- NOTE | 2024-08-04 17:52 | CM ---
Patient with Dx Patient with Dx Acute metabolic encephalopathy, acute hypoxic respiratory failure, HF. O2 3L. BiPAP. IV Bumex switched to PO. Seen by wound care nurse. PT/OT recommend skilled rehab.Per nurse; confused.
Per pulmonary notes: Home setting Tidal volume 300, IPAP/EPAP 15-5.
Spoke with [facility]; they are interested however have no available bed through the weekend, an re-assess on 08/07. Provided update to [facility] that patient will use her home BiPAP - above settings provided.
Plan follow up with [facility] for bed availability when closer to d/c.
[2024-08-04 18:23] LABS: Potassium 3.2 mmol/L (3.5-5.1)
[2024-08-04 19:01] LABS: AFP Male/Tumor Marker 4.07 ng/ml
[2024-08-04 20:40] LABS: CEA 2.49 ng/ml
[2024-08-04] MEDS: SYMBICORT 80/4.5 MCG INHALER INH (20:54)
[2024-08-04] MEDS: TOPROL XL PO (21:00)
[2024-08-04] MEDS: KLOR-CON 40 MEQ PO (21:22)
[2024-08-04] MEDS: REQUIP 0.25 MG PO (21:22)
[2024-08-04 21:38] LABS: Glucose - Point of Care 262 mg/dl (70-99)
[2024-08-04] MEDS: RESTORIL 15 MG PO (22:47)
[2024-08-05] VITALS (12 sets, daily range): BP systolic 104–120; BP diastolic 55–82; BMI 44.4
[2024-08-05 04:08] LABS: INR 2.27; PT 25.1 Sec (11.4-14.6)
[2024-08-05 04:16] LABS: Blood Urea Nitrogen 33 mg/dl (7-17); Carbon Dioxide 39 mmol/L (22-30); Chloride 91 mmol/L (98-107); Estimated Creatinine Clearance 64 ml/min; Glucose 183 mg/dl (70-99); Potassium 3.9 mmol/L (3.5-5.1); Sodium 140 mmol/L (135-145); eGFR > 60.00
--- NOTE | 2024-08-05 06:18 | PTCARENOTE ---
refused home bipap hs. up to bsc to void/have BM, assist x1. no gi/gu complaints. denies any pain. repositioning in place, heels floated. AFIB on tele. BP soft; asymptomatic. 5-6L MF while asleep; was on 3L during the day. call avitia and tray table
within reach.
[2024-08-05] MEDS: SPIRIVA RESPIMAT 2.5 MCG 2 PUFF INH (07:42)
[2024-08-05] MEDS: SYMBICORT 80/4.5 MCG INHALER 2 PUFF INH ×2 (07:42→19:33)
[2024-08-05] MEDS: BUMEX 3 MG PO (08:32)
[2024-08-05] MEDS: OSCAL 500 + D 500 MG PO (08:33)
[2024-08-05] MEDS: KCL 40 MEQ PO ×2 (08:33→21:22)
[2024-08-05] MEDS: CYMBALTA DELAYED RELEASE 60 MG PO (08:34)
[2024-08-05] MEDS: FARXIGA 10 MG PO (08:34)
[2024-08-05] MEDS: LANOXIN 125 MCG PO (08:34)
[2024-08-05] MEDS: TOPROL XL 50 MG PO ×2 (08:34→21:22)
[2024-08-05] MEDS: THERAGRAN 1 TABLET PO (08:35)
[2024-08-05] MEDS: NEURONTIN 300 MG PO ×3 (08:35→21:22)
[2024-08-05] MEDS: LIPITOR 10 MG PO (08:35)
[2024-08-05] MEDS: VITAMIN B-12 2500 MCG PO (08:36)
[2024-08-05] MEDS: DESENEX/MITRAZOL/ZEASORB 1 APPLIC TOPICAL ×2 (08:37→21:22)
[2024-08-05] MEDS: HYDROPHOR 1 APPLIC TOPICAL (08:37)
[2024-08-05 09:21] LABS: Glucose - Point of Care 127 mg/dl (70-99)
[2024-08-05] MEDS: NOVOLOG FLEXPEN-LOW RESISTANCE SC (09:23)
--- NOTE | 2024-08-05 09:35 | W.PN.HOSP.TC ---
Today's Communication/Plan
-
discharged
Assessment / Plan
Assessment / Plan
68yo F with PMHx of Afib, asthma, chronic hypoxic respiratory failure on 3L home O2, Hx of CVA, GERD, HTN, HLD, DM, anxiety d/o, CHAS on CPAP (non-compliant), TAVR on Coumadin, R parietal meningioma, HX of PE admitted with AMS, managed for CHF
exacerbation and possible UTI. Patient with significant pulmonary HTN but not compliant with CPAP that contributes to the problem. Completed diuresis and was able to be weaned off to her usual 3L home O2. GI recommended outpatient follow up with
bank boss upon d/c and recommended by GI. Reviewed imaging for liver lesion by IRAD: most likely cystic etiology, radiologist recommended follow up imaging in 3 mo rather then biopsy. Medically stable for d/c to rehab as recommended
by PT/OT
A/P:
#Acute metabolic encephalopathy 2/2 acute on chronic hypoxic hypercarbic respiratory failure 2/2 HFpEF exacerbation
#Pulmonary HTN
#CHAS on CPAP
#Asthma/COPD not in exacerbation
Bronchodilators
Diuretics, daily weight, follow electrolytes
Pulmonology and Cardiology follows
s/p R heart cath: increased pressures with low CI
CT showed no pulmonary embolism, but suggest pulmonary hypertension and elevated right heart pressures
WEan off O2 to home level of 3L
Emphasize nightly CPAP
BRANDON hose stockings
bronchodipators
#Hypokalemia
replete and follow
#E.coli UTI
completed ceftriaxone
#AIYANA
cardiorenal
resolved
#Hx of syncope
on hall monitor by [facility]
#Liver lesion seen on CT in Mar 2024
#Elevated Alk.phos
#Transaminitis
#Direct bilirubinemia
No RUQ pain
Since Mar 2024
questionable if benign
Outpatient w/u by GI as agreed with Onc and IRAD
Tumor markers neg
#DM type 2 with neuropathy
Accuchecks, Insulin SS, DM diet
#Anxiety/depression
#Permanent Afib
#Essential HTN
#HLD
#Raynaulds
#Hx of meningioma
#RLS
cont home meds
#Stage 3 R buttocks pressure injury
Wound care
offloading
#Morbid obesity
BMI 45.4
decrease calorie intake
DVT ppx Coumadin
Full code
I have spent at least 38min reviewing chart, test results, communication with consultants and providing direct patient care
Anticipated Discharge: Today
Subjective/Interval History
-
Date of Service: August 05, 2024
Objective Data
-
Labs:
Laboratory Results
08/05/24
03:36
PT 25.1 H
INR 2.27
Sodium 140
Potassium 3.9
Chloride 91 L
Carbon Dioxide 39 H
BUN 33 H
Creatinine 1.0
Glucose 183 H
Calcium 10.0
Vital Signs:
Vital Signs
Temp Pulse Resp BP Pulse Ox
97.5 F 87 16 120/78 97
08/05/24 07:05 08/05/24 08:34 08/05/24 07:45 08/05/24 06:00 08/05/24 07:45
I&O
08/04/24 08/05/24 08/06/24
06:59 06:59 06:59
Intake Total 900 / 900
Output Total 2300 / 2300 800 / 800
Balance -2300 / -2300 100 / 100
Review of Systems
-
History Source: Patient
All other systems: Reviewed and negative
Physical Exam
-
General: No Apparent Distress and Obese
HEENT: Normocephalic
Respiratory: Clear to Auscultation
Cardiac: Regular Rhythm
GI: Soft, Nontender and Nondistended
Genito-urinary: No Costovertebral Tender
Musculoskeletal: No Clubbing, No Cyanosis and No Edema
Skin: Warm
Neuro: Awake, Alert, Oriented and AO x 3
Psych: Calm
--- NOTE | 2024-08-05 09:45 | W.DCSUMMARY ---
Discharge Summary
Discharge Data
Date of Admission: 07/20/24
Date of Discharge: 08/05/24
-
Pending Results: No
Hospital Course
68yo F with PMHx of Afib, asthma, chronic hypoxic respiratory failure on 3L home O2, Hx of CVA, GERD, HTN, HLD, DM, anxiety d/o, CHAS on CPAP (non-compliant), TAVR on Coumadin, R parietal meningioma, HX of PE admitted with AMS, managed for CHF
exacerbation and possible UTI. Patient with significant pulmonary HTN but not compliant with CPAP that contributes to the problem. Completed diuresis and was able to be weaned off to her usual 3L home O2. GI recommended outpatient follow up with
plate painter upon d/c and recommended by GI. Reviewed imaging for liver lesion by IRAD: most likely cystic etiology, radiologist recommended follow up imaging in 3 mo rather then biopsy. Medically stable for d/c to rehab as recommended
by PT/OT
I have spent at least 38min reviewing chart, test results, communication with consultants and providing direct patient care
Patient was managed for:
#Acute metabolic encephalopathy 2/2 acute on chronic hypoxic hypercarbic respiratory failure 2/2 HFpEF exacerbation
#Pulmonary HTN
#CHAS on CPAP
#Asthma/COPD not in exacerbation
#Chronic Hypokalemia
#E.coli UTI
#AIYANA
#Hx of syncope
#Liver lesion seen on CT in Mar 2024
#Elevated Alk.phos
#Transaminitis
#Direct bilirubinemia
#DM type 2 with neuropathy
#Anxiety/depression
#Permanent Afib
#Essential HTN
#HLD
#Raynaulds
#Hx of meningioma
#RLS
#Stage 3 R buttocks pressure injury
#Morbid obesity
Discharge Plan
-
Patient Disposition: Other
Discharge Diagnosis/Procedures: Rehab
Diet: 2 Gram Sodium and Restrict fluids to 48 oz
Blood Work: BMP in 1 week
Other Services: PT and OT
Specialty Instructions: Weigh Daily- Call MD for wt gain/loss 3 lbs overnight/5 lbs in 1 week
Activity Restrictions/Additional Instructions:
Wound Care Instructions Left Lateral Leg and Right Buttock Wound- Clean with normal saline or soap and water. Apply Honey Gel and silicone border foam. Change Q 48 hours and PRN if loose or for drainage
Turning schedule
Mineral oil to legs and left finger
Avoid sliding in recliner
Follow up at Lymphedema clinic as advised by [facility]
Desenex Powder to groin
\\
Instructions: *[facility] Heart Failure Instructions
Referrals:
Caleb Gil [Other]
Sanjay Carrera DO [Family Provider] -
Tiburcio Alejandro MD [Active] - 08/31/24 2:40 pm (You are scheduled to see Dr. Alejandro's physician critical care physician assistant, Tavia, at the [place] office on 08/31/2024 at 2:40 PM. )
Prescriptions:
New
miconazole nitrate [Miconazorb AF] 2 % Powder
1 applic topical BID Qty: 85 0RF
warfarin [Jantoven] 2.5 mg Tablet
2.5 mg PO QPM Qty: 5 0RF
bumetanide 1 mg Tablet
3 mg PO DAILY Qty: 30 0RF
potassium chloride [Klor-Con] 20 mEq packet
20 meq PO BID Qty: 100 0RF
Continued
duloxetine 60 MG capsule,delayed release(DR/EC)
60 mg PO DAILY
metformin 500 mg Tablet
500 mg PO BID
atorvastatin 10 mg Tablet
10 mg PO DAILY
metoprolol succinate 50 mg Tablet Extended Release 24 Hr
100 mg PO DAILY
Yupelri 175 mcg/3 mL Solution For Nebulization
175 mcg INHALATION R DAILY
cyanocobalamin (vitamin B-12) [Vitamin B-12] 2,500 mcg Tablet, Sublingual
2,500 mcg SUBLINGUAL DAILY
budesonide 0.5 mg/2 mL Suspension For Nebulization
0.5 mg INHALATION R BID
arformoterol [Brovana] 15 mcg/2 mL Solution For Nebulization
2 ml INHALATION R BID
calcium carbonate-vitamin D3 [Oyster Shell Calcium-Vit D3] 500 MG tablet
500 mg PO DAILY
Hair, Skin and Nails (biotin) 10,000 mcg Tablet,Chewable
10,000 mcg PO DAILY
metoprolol succinate 50 mg tablet extended release 24 hr
50 mg PO HS
digoxin 125 mcg (0.125 mg) Tablet
125 mcg PO SUTUTHSA@0800
therapeutic multivitamin Tablet
1 tab PO DAILY
temazepam 15 mg Capsule
15 mg PO HS
ropinirole 0.25 mg Tablet
0.25 mg PO HS
gabapentin 300 mg Capsule
600 mg PO DAILY@1500
gabapentin 300 mg Capsule
300 mg PO HS
Jardiance 10 mg Tablet
10 mg PO DAILY
Discontinued
potassium chloride 20 mEq tablet extended release
20 meq PO DAILY Qty: 3 0RF
warfarin 2 mg Tablet
2 mg PO DAILY
torsemide 20 mg tablet
40 mg PO BID@0800,1600
Discharge Orders:
Discharge Patient (As Directed); Ordered 08/05/24
Ordered By: Maurisio Mari
Discharge Date and Time
Print Language: JAPANESE
--- NOTE | 2024-08-05 11:28 | W.PN.GI.CBS2 ---
Today's Communication / Plan
-
Trend LFTs. Outpatient hepatology follow-up. GI will sign off, please call with questions.
Assessment / Plan
-
Carlos romero is a 68-year-old female with past medical history of COPD, hypertension, hyperlipidemia, CHAS intolerant to CPAP, aortic stenosis status post TAVR, A-fib on Coumadin, pulmonary hypertension, chronic hypoxic and hypercapnic respiratory
failure on 3 L of home O2,HFpEF, admitted with acute decompensated heart failure with persistent hypoxemia with findings of severe pulmonary hypertension with PASP 45-50 mmHg and course c/b atrial flutter with RVR. Overall, she has improved with
diuresis. GI following for persistent elevation in liver enzymes and indeterminate liver lesion seen on MRI.
Abdominal US 08/04/24: 20 mm nonspecific echogenic lesion within the posterior RIGHT hepatic lobe which corresponds to the abnormality seen on prior MRI. Cholelithiasis.
MRI Abdomen w/wo 08/03/24: The liver is top normal in size. In the posterior segment of hte right lobe there is an intrahepatic space-occupying lesion measuring 1.6 cm, diminished signal intesnity on T1. On T2, mild increased signal intensity is
demonstrated. Indistinct margins, no enhancement following IV contrast and no restricted diffusion. no restricted diffusion. Large differential (biliary hamartoma, biliary cystadenoma, IPMN, isolated cystic hypovascular metastatic lesion felt
unlikely), unclear etiology given these findings. Evidence of atrophy of the pancreas in the region of the neck and proximal body with associated mild distension of the main PD measuring up to 5 mm. No ductal dilation in jo ann distal body and tail.
Recommend repeat MRI in 2-3 months.
Tbili 3.1, Dbili 1.5, AST 64, ALT 39, Alk phos 323
AFP 4.07
CEA 2.49
CA 19-9 pending
Upon review of prior imaging, indeterminate liver lesion seen on prior CT scan.
I feel she has 2 separate issues--a liver lesion of unknown etiology and elevated liver enzymes. I do not feel the liver lesion is the cuase of her elevated LFTs, which are likely the result of congestive hepatopathy and/or DILI. She has had similar
patterns of elevations in the past, which have resolved.
A/P:
-trend LFTs, I anticipate they will improve as she is medically optimized, no AM LFTs
-hepatitis B/C neg. 03/2024
-ultimately, we do not know the etiology of her liver lesion, oncology recommending IR liver biopsy, which is difficult in her case as she is on coumadin and would require bridging with lovenox. It is also very possible this represents a completely
benign etiology and with surveillance imaging, can be better characterize to a point where no liver biopsy is necessary. She is medically complex, and proceeding with a possibly unnecessary intervention is not in her best interest, when its possibly
avoidable. I recommend outpatient follow-up with Hepatology, Dr. Gil. I discussed with with the patient at length. He can review the imaging and determine if perhaps another imaging study is favored over moving forward with liver biopsy.
GI will sign off, please call with questions.
Subjective
Subjective
Date of Service: August 05, 2024
Patient seen in follow-up. No overnight events. No LFTs checked on AM labs.
Objective
Data Reviewed
Laboratory Data:
Laboratory Results
08/01/24 04:25
08/05/24 03:36
Laboratory Results
PT 25.1 Sec (11.4-14.6) H 08/05/24 03:36
INR 2.27 08/05/24 03:36
Phosphorus 4.0 mg/dl (2.5-4.5) 07/31/24 04:04
Magnesium 2.3 mg/dl (1.6-2.3) 08/04/24 04:14
Total Bilirubin 3.1 mg/dl (0.2-1.3) H 08/04/24 04:14
AST 64 U/L (14-36) H 08/04/24 04:14
ALT 39 U/L (0-35) H 08/04/24 04:14
Alkaline Phosphatase 323 U/L (38-126) H 08/04/24 04:14
Vital Signs and I&O:
Vital Signs
Temp Pulse Resp BP Pulse Ox
97.5 F 87 16 120/78 97
08/05/24 07:05 08/05/24 08:34 08/05/24 07:45 08/05/24 06:00 08/05/24 07:45
I&O
08/04/24 08/05/24 08/06/24
06:59 06:59 06:59
Intake Total 900 / 900
Output Total 2300 / 2300 800 / 800
Balance -2300 / -2300 100 / 100
Physical Exam
Physical Exam
HEENT: Anicteric and Moist mucous membranes
Pulmonary: Other (decreased)
GI: Soft, Non Distended and Non Tender
Extremities: Edema
[2024-08-05] MEDS: NOVOLOG FLEXPEN-LOW RESISTANCE 1 UNITS SC (13:58)
[2024-08-05 14:07] LABS: Glucose - Point of Care 166 mg/dl (70-99)
--- NOTE | 2024-08-05 14:46 | CM ---
Met with pt at bedside who shares preference is for SNF at [facility].
Left for admissions/[facility] [phone].
[2024-08-05 16:53] LABS: Glucose - Point of Care 227 mg/dl (70-99)
[2024-08-05] MEDS: COUMADIN 2.5 MG PO (17:59)
[2024-08-05] MEDS: NOVOLOG FLEXPEN-LOW RESISTANCE 2 UNITS SC (18:00)
[2024-08-05] MEDS: REQUIP 0.25 MG PO (21:22)
[2024-08-05] MEDS: RESTORIL 15 MG PO (21:23)
[2024-08-05 21:30] LABS: Glucose - Point of Care 220 mg/dl (70-99)
--- NOTE | 2024-08-05 23:13 | PTCARENOTE ---
Patient AAOx3, forgetful at times. Pt A-fib on the monitor. Pt on 4L MFNC and SpO2 93%. Discussed importance of wearing the BiPAP HS and pt is agreeable to wear BiPAP. Lungs are coarse with fine crackles at the bases. +2 LE edema but seems to be
improving. Moisturizer applied to b/l lower legs. Wound dressings clean dry and intact. Pt has call avitia within reach.
[2024-08-06] VITALS (12 sets, daily range): BP systolic 100–125; BP diastolic 65–83; BMI 45.1
[2024-08-06 05:54] LABS: INR 2.42; PT 26.4 Sec (11.4-14.6)
[2024-08-06] MEDS: NOVOLOG FLEXPEN-LOW RESISTANCE SC (07:17)
[2024-08-06 07:26] LABS: Glucose - Point of Care 120 mg/dl (70-99)
[2024-08-06] MEDS: SYMBICORT 80/4.5 MCG INHALER 2 PUFF INH ×2 (07:57→19:57)
[2024-08-06] MEDS: SPIRIVA RESPIMAT 2.5 MCG 2 PUFF INH (07:57)
[2024-08-06] MEDS: KCL 40 MEQ PO ×2 (08:53→20:25)
[2024-08-06] MEDS: FARXIGA 10 MG PO (08:53)
[2024-08-06] MEDS: TOPROL XL 50 MG PO ×2 (08:54→20:25)
[2024-08-06] MEDS: HYDROPHOR 1 APPLIC TOPICAL (08:54)
[2024-08-06] MEDS: VITAMIN B-12 2500 MCG PO (08:55)
[2024-08-06] MEDS: BUMEX 3 MG PO (08:55)
[2024-08-06] MEDS: OSCAL 500 + D 500 MG PO (08:56)
[2024-08-06] MEDS: NEURONTIN 300 MG PO ×3 (08:56→20:25)
[2024-08-06] MEDS: LANOXIN 125 MCG PO (08:57)
[2024-08-06] MEDS: CYMBALTA DELAYED RELEASE 60 MG PO (08:57)
[2024-08-06] MEDS: LIPITOR 10 MG PO (08:57)
[2024-08-06] MEDS: THERAGRAN 1 TABLET PO (08:58)
[2024-08-06] MEDS: DESENEX/MITRAZOL/ZEASORB 1 APPLIC TOPICAL ×2 (08:59→20:24)
[2024-08-06 11:41] LABS: Glucose - Point of Care 190 mg/dl (70-99)
--- NOTE | 2024-08-06 11:51 | CM ---
Addendum entered by Lynn Harding 08/06/24 14:45:
Pt states she has been to [facility] 2x and would prefer to return there.
CM explained that we will try to get her there, but if they are full or unable to accept, a back up choice is needed.
Back up choice is [facility], ref sent.
Original Note:
CM following re: d/c planning.
D/c plan is for SNF placement.
Pt's only choice is [facility], although no beds today.
CM will obtain other SNF choices and send referrals.
If pt unable to be placed today, will outreach [facility] in AM for availability and continue bed search.
[2024-08-06] MEDS: NOVOLOG FLEXPEN-LOW RESISTANCE 1 UNITS SC ×2 (12:15→18:31)
--- NOTE | 2024-08-06 12:24 | W.PN.HOSP.TC ---
Today's Communication/Plan
-
pending rehab
Again used CPAP only for 1 hour
On baseline 3L duering day, but desat when off CPAP at night - emphasized complance again
Assessment / Plan
Assessment / Plan
68yo F with PMHx of Afib, asthma, chronic hypoxic respiratory failure on 3L home O2, Hx of CVA, GERD, HTN, HLD, DM, anxiety d/o, CHAS on CPAP (non-compliant), TAVR on Coumadin, R parietal meningioma, HX of PE admitted with AMS, managed for CHF
exacerbation and possible UTI. Patient with significant pulmonary HTN but not compliant with CPAP that contributes to the problem. Completed diuresis and was able to be weaned off to her usual 3L home O2. GI recommended outpatient follow up with
assistant professor of history upon d/c and recommended by GI. Reviewed imaging for liver lesion by IRAD: most likely cystic etiology, radiologist recommended follow up imaging in 3 mo rather then biopsy. Medically stable for d/c to rehab as recommended
by PT/OT
A/P:
#Acute metabolic encephalopathy 2/2 acute on chronic hypoxic hypercarbic respiratory failure 2/2 HFpEF exacerbation
#Pulmonary HTN
#CHAS on CPAP
#Asthma/COPD not in exacerbation
Bronchodilators
Diuretics, daily weight, follow electrolytes
Pulmonology and Cardiology follows
s/p R heart cath: increased pressures with low CI
CT showed no pulmonary embolism, but suggest pulmonary hypertension and elevated right heart pressures
WEan off O2 to home level of 3L
Emphasize nightly CPAP
BRANDON hose stockings
bronchodipators
#Hypokalemia
replete and follow
#E.coli UTI
completed ceftriaxone
#AIYANA
cardiorenal
resolved
#Hx of syncope
on front desk monitor by DCA
#Liver lesion seen on CT in Mar 2024
#Elevated Alk.phos
#Transaminitis
#Direct bilirubinemia
No RUQ pain
Since Mar 2024
questionable if benign
Outpatient w/u by GI as agreed with Onc and IRAD
Tumor markers neg
#DM type 2 with neuropathy
Accuchecks, Insulin SS, DM diet
#Anxiety/depression
#Permanent Afib
#Essential HTN
#HLD
#Raynaulds
#Hx of meningioma
#RLS
cont home meds
#Stage 3 R buttocks pressure injury
Wound care
offloading
#Morbid obesity
BMI 45.4
decrease calorie intake
DVT ppx Coumadin
Full code
I have spent at least 38min reviewing chart, test results, communication with consultants and providing direct patient care
Anticipated Discharge: Within 24 hours
Subjective/Interval History
-
Date of Service: August 06, 2024
Objective Data
-
Labs:
Laboratory Results
08/06/24
05:26
PT 26.4 H
INR 2.42
Vital Signs:
Vital Signs
Temp Pulse Resp BP Pulse Ox
97.7 F 84 17 100/83 93
08/06/24 11:05 08/06/24 08:57 08/06/24 08:03 08/06/24 08:00 08/06/24 08:03
I&O
08/05/24 08/06/24 08/07/24
06:59 06:59 06:59
Intake Total 900 / 900 960 / 960
Output Total 800 / 800 1950 / 1950
Balance 100 / 100 -990 / -990
Review of Systems
-
History Source: Patient
All other systems: Reviewed and negative
Physical Exam
-
General: No Apparent Distress
HEENT: Normocephalic
Respiratory: Clear to Auscultation
Cardiac: Regular Rhythm
Neuro: Awake, Alert, Oriented and AO x 3
Psych: Calm
[2024-08-06] MEDS: COUMADIN 2.5 MG PO (18:31)
[2024-08-06 18:32] LABS: Glucose - Point of Care 171 mg/dl (70-99)
[2024-08-06] MEDS: RESTORIL 15 MG PO (20:25)
[2024-08-06] MEDS: REQUIP 0.25 MG PO (20:26)
[2024-08-06 22:09] LABS: CA 19-9 71 U/mL (<=35)
[2024-08-06 22:21] LABS: Glucose - Point of Care 215 mg/dl (70-99)
[2024-08-07] VITALS (12 sets, daily range): BP systolic 94–118; BP diastolic 68–91; PULSE 83; O2SAT 94
--- NOTE | 2024-08-07 02:06 | PTCARENOTE ---
Patient is aaox3 at start of shift, generalized weakness. B/L lateral leg wounds cleaned and dressings changed. Patient afib on the monitor with BBB. Lungs coarse throughout. On 5L at start of shift, increased to 10L overnight due to pulse ox in the
80's. Will monitor and titrate down as able. SN discussed POC with patient. Understanding verbalized. Will continue to monitor.
[2024-08-07 04:32] LABS: INR 2.53; PT 27.3 Sec (11.4-14.6)
[2024-08-07 07:30] LABS: Glucose - Point of Care 135 mg/dl (70-99)
[2024-08-07] MEDS: SYMBICORT 80/4.5 MCG INHALER 2 PUFF INH ×2 (07:37→19:41)
[2024-08-07] MEDS: SPIRIVA RESPIMAT 2.5 MCG 2 PUFF INH (07:37)
[2024-08-07] MEDS: NOVOLOG FLEXPEN-LOW RESISTANCE SC (10:12)
[2024-08-07] MEDS: BUMEX 3 MG PO (10:13)
[2024-08-07] MEDS: KCL 40 MEQ PO ×2 (10:14→21:10)
[2024-08-07] MEDS: CYMBALTA DELAYED RELEASE 60 MG PO (10:14)
[2024-08-07] MEDS: LIPITOR 10 MG PO (10:14)
[2024-08-07] MEDS: VITAMIN B-12 2500 MCG PO (10:15)
[2024-08-07] MEDS: OSCAL 500 + D 500 MG PO (10:16)
[2024-08-07] MEDS: TOPROL XL 50 MG PO ×2 (10:16→21:11)
[2024-08-07] MEDS: NEURONTIN 300 MG PO ×3 (10:16→21:10)
[2024-08-07] MEDS: FARXIGA 10 MG PO (10:17)
--- NOTE | 2024-08-07 11:30 | W.PN.HOSP.TC ---
Addendum entered and electronically signed by Sukhjinder Krueger MD 08/07/24 11:52:
Patient now with increased need for O2. Check chest x-ray
Original Note:
Today's Communication/Plan
-
monitor vitals
see plan
RN to confirm regarding desat overnight; patient has been non compliant at times with cpap for entire night
wean o2 as tolerated
dc planning
Assessment / Plan
Assessment / Plan
68yo F with PMHx of Afib, asthma, chronic hypoxic respiratory failure on 3L home O2, Hx of CVA, GERD, HTN, HLD, DM, anxiety d/o, CHAS on CPAP (non-compliant), TAVR on Coumadin, R parietal meningioma, HX of PE admitted with AMS, managed for CHF
exacerbation and possible UTI. Patient with significant pulmonary HTN but not compliant with CPAP that contributes to the problem. Completed diuresis and was able to be weaned off to her usual 3L home O2. GI recommended outpatient follow up with
customer service manager upon d/c and recommended by GI. Reviewed imaging for liver lesion by IRAD: most likely cystic etiology, radiologist recommended follow up imaging in 3 mo rather then biopsy. Medically stable for d/c to rehab as recommended
by PT/OT
A/P:
#Acute metabolic encephalopathy 2/2 acute on chronic hypoxic hypercarbic respiratory failure 2/2 HFpEF exacerbation
#Pulmonary HTN
#CHAS on CPAP
#Asthma/COPD not in exacerbation
Bronchodilators
Diuretics, daily weight, follow electrolytes
Pulmonology and Cardiology follows
s/p R heart cath: increased pressures with low CI
CT showed no pulmonary embolism, but suggest pulmonary hypertension and elevated right heart pressures
at home was uring 3L o2; here high O2 has been required intermittently
Emphasize nightly CPAP
BRANDON hose stockings
bronchodipators
#Hypokalemia
replete and follow
#E.coli UTI
completed ceftriaxone
#AIYANA
cardiorenal
resolved
#Hx of syncope
on child monitor by DCA
#Liver lesion seen on CT in Mar 2024
#Elevated Alk.phos
#Transaminitis
#Direct bilirubinemia
No RUQ pain
Since Mar 2024
questionable if benign
Outpatient w/u by GI as agreed with Onc and IRAD. Patient to follow-up with Dr. Gil outpatient
#DM type 2 with neuropathy
Accuchecks, Insulin SS, DM diet
#Anxiety/depression
#Permanent Afib
#Essential HTN
#HLD
#Raynaulds
#Hx of meningioma
#RLS
cont home meds
#Stage 3 R buttocks pressure injury
Wound care
offloading
#Morbid obesity
BMI 45.4
decrease calorie intake
DVT ppx Coumadin
Full code
General: No Apparent Distress
HEENT: Normocephalic
Respiratory: Clear to Auscultation
Cardiac: Regular Rhythm
Neuro: Awake, Alert, Oriented and AO x 3
Psych: Calm
Anticipated Discharge: Within 24 hours
Subjective/Interval History
-
Date of Service: August 07, 2024
denies pain
Objective Data
-
Labs:
Laboratory Results
08/07/24
04:10
PT 27.3 H
INR 2.53
Vital Signs:
Vital Signs
Temp Pulse Resp BP Pulse Ox
98.2 F 91 18 116/75 94
08/07/24 07:10 08/07/24 08:00 08/07/24 08:00 08/07/24 06:00 08/07/24 10:20
I&O
08/06/24 08/07/24 08/08/24
06:59 06:59 06:59
Intake Total 960 / 960
Output Total 1950 / 1950 1750 / 1749
Balance -990 / -990 -1749 / -1749
--- NOTE | 2024-08-07 12:26 | CM ---
Patient with Dx Patient with Dx Acute metabolic encephalopathy, acute hypoxic respiratory failure, HF. Decreased O2 sat overnight & O2 increased to 10L. Per nurse O2 6-7L today. CXR. PT recommends skilled rehab.
Per pulmonary notes 08/03/24: Home setting Tidal volume 300, IPAP/EPAP 15-5.
Spoke with Ngoc, [facility] as initially discharge order was in chart. Ngoc ordered high flow concentrator. She requests patient provide her own supply of her 2 inhaler meds (Brovana & Yupelri)- confirmed will supply. Ph for report
[phone], fax [phone]. Provided update to [facility] that discharge is being held today. Per Ngoc, CN will need to check bed availability tomorrow.
Message from Dr Krueger; no dc today. If O2 stable tomorrow then d/c.
Met with patient and ; provided update that discharge is held today, and CM can try for [facility] again tomorrow if medically ready for d/c. IMM completed. Patient expressing disappointment as she states she feels ready to leave.
Ambulance forms on chart.
Plan send patient to SNF with patient's CPAP, and Brovana & Yupelri inhalers.
Plan probable [facility] SNF tomorrow if medically ready and bed available.
[2024-08-07 12:38] LABS: Glucose - Point of Care 160 mg/dl (70-99)
[2024-08-07] MEDS: DESENEX/MITRAZOL/ZEASORB 1 APPLIC TOPICAL ×2 (13:16→21:09)
[2024-08-07] MEDS: HYDROPHOR 1 APPLIC TOPICAL (13:16)
[2024-08-07] MEDS: THERAGRAN PO (13:17)
[2024-08-07] MEDS: NOVOLOG FLEXPEN-LOW RESISTANCE 1 UNITS SC ×2 (13:18→17:29)
--- NOTE | 2024-08-07 16:19 | WOUNDNOTE ---
WOC RN NOTE: Patient visited to follow up on buttock and left lateral leg wound. The buttock wound bed has progressed toward healing but the periwound is macerated. Staff can use Calazime to buttock wound. Left lateral leg is healed. Purwick in
place for moisture management. Heels intact. Patient remains on turning schedule and Centrella Max Air. Plan is for discharge to SNF. Will sign off.
[2024-08-07 16:25] LABS: Glucose - Point of Care 191 mg/dl (70-99)
--- NOTE | 2024-08-07 16:26 | WOUNDNOTE ---
LEFT LEG WOUND
--- NOTE | 2024-08-07 16:26 | WOUNDNOTE ---
RIGHT BUTTOCK WOUND
[2024-08-07] MEDS: COUMADIN 2.5 MG PO (17:28)
[2024-08-07] MEDS: REQUIP 0.25 MG PO (21:10)
[2024-08-07] MEDS: RESTORIL 15 MG PO (21:10)
[2024-08-07 21:23] LABS: Glucose - Point of Care 185 mg/dl (70-99)
[2024-08-08] VITALS (7 sets, daily range): BP systolic 96–124; BP diastolic 71–102; BMI 44.9
--- NOTE | 2024-08-08 00:41 | PTCARENOTE ---
Assumed care for patient overnight, received report from dayshift RN. Pt AAOx3, forgetful at times. Pt A-fib on the monitor w/ PVCs. Pt 94% on 6L MFNC. Pt agreeable to wear BiPAP HS. Reinforced and educated regarding BiPAP. Spoke to pt regarding
rehabilitation and pt feels motivated about it. Pt has call avitia within reach and is able to make needs known.
[2024-08-08 04:55] LABS: % Basophils 1.4 % (0-2); % Eosinophils 4.3 % (0-6); % Immature Granulocytes 0.5 % (0-0.5); % Lymphocytes 38.3 % (20.5-51.1); % Monocytes 8.5 % (1.7-9.3); Absolute Basophils 0.1 10^3/uL (0-0.2); Absolute Eosinophils 0.3 10^3/uL (0-0.7); Absolute Lymphocytes 2.4 10^3/uL (1.2-3.4); Absolute Monocytes 0.5 10^3/uL (0.1-0.6); Absolute Neutrophils 2.9 10^3/uL (1.4-6.5); Hematocrit 47.2 % (37.0-47.0); Hemoglobin 15.7 g/dL (12.0-16.0); Mean Corp Hgb Conc. 33.3 g/dL (33.0-37.0); Mean Corpuscular Hgb 33.9 pg (27.0-31.0); Mean Corpuscular Volume 101.9 fL (81.0-99.0); Mean Platelet Volume 10.8 fL (7.4-10.4); Nucleated Red Blood Cells % 0 %; Platelet Count 173 10^3/uL (130-400); Red Blood Cell Count 4.63 10^6/uL (4.20-5.40); Red Cell Dist. Width 16.5 % (11.5-14.5); White Blood Cell Count 6.2 10^3/uL (4.8-10.8)
[2024-08-08 04:59] LABS: INR 2.38; PT 26.1 Sec (11.4-14.6)
[2024-08-08 05:22] LABS: Blood Urea Nitrogen 26 mg/dl (7-17); Calcium 9.6 mg/dl (8.4-10.2); Carbon Dioxide 33 mmol/L (22-30); Chloride 94 mmol/L (98-107); Estimated Creatinine Clearance 80 ml/min; Glucose 148 mg/dl (70-99); Sodium 137 mmol/L (135-145); eGFR > 60.00
[2024-08-08] MEDS: SYMBICORT 80/4.5 MCG INHALER 2 PUFF INH (07:29)
[2024-08-08] MEDS: SPIRIVA RESPIMAT 2.5 MCG 2 PUFF INH (07:29)
[2024-08-08 07:35] LABS: Glucose - Point of Care 107 mg/dl (70-99)
--- NOTE | 2024-08-08 08:11 | PTCARENOTE ---
Addendum entered by Kasia Kidd RN 08/08/24 11:56:
Wore CPAP overnight for 3 hours
Original Note:
Assumed care of patient this AM. Patient wore CPAP for over 3L last night. Currently on 6L midflow oxygen pulse ox 90-94%. Patient denies SOB. Patient hoping to be d/c to [facility] today for rehab. Afib on monitor. VS stable. No complaints
overnight.
[2024-08-08] MEDS: NOVOLOG FLEXPEN-LOW RESISTANCE SC (08:38)
[2024-08-08] MEDS: BUMEX 3 MG PO (08:39)
[2024-08-08] MEDS: CYMBALTA DELAYED RELEASE 60 MG PO (08:40)
[2024-08-08] MEDS: LANOXIN 125 MCG PO (08:40)
[2024-08-08] MEDS: VITAMIN B-12 2500 MCG PO (08:40)
[2024-08-08] MEDS: KCL 40 MEQ PO (08:41)
[2024-08-08] MEDS: FARXIGA 10 MG PO (08:41)
[2024-08-08] MEDS: NEURONTIN 300 MG PO (08:42)
[2024-08-08] MEDS: TOPROL XL 50 MG PO (08:42)
[2024-08-08] MEDS: HYDROPHOR 1 APPLIC TOPICAL (08:43)
[2024-08-08] MEDS: THERAGRAN 1 TABLET PO (08:43)
[2024-08-08] MEDS: OSCAL 500 + D 500 MG PO (08:43)
[2024-08-08] MEDS: DESENEX/MITRAZOL/ZEASORB 1 APPLIC TOPICAL (08:44)
--- NOTE | 2024-08-08 10:51 | W.PN.HOSP.TC ---
Addendum entered and electronically signed by Sukhjinder Krueger MD 08/08/24 11:15:
Time of discharge 39 minutes
Original Note:
Today's Communication/Plan
-
monitor vitals
see plan
wean o2 as tolerated
cw diuresis
encourage cpap
monitor INR
Discharge today if has SNF bed
Discussed with spouse at bedside
Assessment / Plan
Assessment / Plan
68yo F with PMHx of Afib, asthma, chronic hypoxic respiratory failure on 3L home O2, Hx of CVA, GERD, HTN, HLD, DM, anxiety d/o, CHAS on CPAP (non-compliant), TAVR on Coumadin, R parietal meningioma, HX of PE admitted with AMS, managed for CHF
exacerbation and possible UTI. Patient with significant pulmonary HTN but not compliant with CPAP that contributes to the problem. Completed diuresis and was able to be weaned off to her usual 3L home O2. GI recommended outpatient follow up with
radius grinder upon d/c and recommended by GI. Reviewed imaging for liver lesion by IRAD: most likely cystic etiology, radiologist recommended follow up imaging in 3 mo rather then biopsy. Medically stable for d/c to rehab as recommended
by PT/OT
A/P:
#Acute metabolic encephalopathy 2/2 acute on chronic hypoxic hypercarbic respiratory failure 2/2 HFpEF exacerbation
#Pulmonary HTN
#CHAS on CPAP
#Asthma/COPD not in exacerbation
Bronchodilators
Diuretics, daily weight, follow electrolytes
Pulmonology and Cardiology follows
s/p R heart cath: increased pressures with low CI
CT showed no pulmonary embolism, but suggest pulmonary hypertension and elevated right heart pressures
at home was u\\sing 3L o2; here high O2 has been required intermittently, some of it is due to incorrect SpO2 given Raynaud's. Currently denies any shortness of breath
Emphasize nightly CPAP
BRANDON hose stockings
bronchodilators
#Hypokalemia
replete and follow
#E.coli UTI
completed ceftriaxone
#AIYANA
cardiorenal
resolved
#Hx of syncope
on rn diabetes educator by DCA
#Liver lesion seen on CT in Mar 2024
#Elevated Alk.phos
#Transaminitis
#Direct bilirubinemia
No RUQ pain
Since Mar 2024
questionable if benign
Outpatient w/u by GI as agreed with Onc and IRAD. Patient to follow-up with Dr. Gil outpatient
#DM type 2 with neuropathy
Accuchecks, Insulin SS, DM diet
#Anxiety/depression
#Permanent Afib
#Essential HTN
#HLD
#Raynaulds
#Hx of meningioma
#RLS
cont home meds
#Stage 3 R buttocks pressure injury
Wound care
offloading
#Morbid obesity
BMI 45.4
decrease calorie intake
DVT ppx Coumadin
Full code
General: No Apparent Distress
HEENT: Normocephalic
Respiratory: Clear to Auscultation
Cardiac: Regular Rhythm
Neuro: Awake, Alert, Oriented and AO x 3
Psych: Calm
Anticipated Discharge: Today
Subjective/Interval History
-
Date of Service: August 08, 2024
Denies chest pain
Objective Data
-
Labs:
Laboratory Results
08/08/24
04:42
WBC 6.2
Hgb 15.7
Hct 47.2 H
Plt Count 173
PT 26.1 H
INR 2.38
Sodium 137
Potassium 4.0
Chloride 94 L
Carbon Dioxide 33 H
BUN 26 H
Creatinine 0.8
Glucose 148 H
Calcium 9.6
Vital Signs:
Vital Signs
Temp Pulse Resp BP Pulse Ox
97.7 F 88 16 109/71 91
08/08/24 07:05 08/08/24 08:00 08/08/24 08:00 08/08/24 08:00 08/08/24 08:30
I&O
08/07/24 08/08/24 08/09/24
06:59 06:59 06:59
Intake Total 1815 / 1815
Output Total 1750 / 1750 1450 / 1450
Balance -1750 / -1750 365 / 365
--- NOTE | 2024-08-08 11:15 | W.DCSUMMARY ---
Discharge Summary
Discharge Data
Date of Admission: 07/20/24
Date of Discharge: 08/08/24
-
Pending Results: No
Hospital Course
68-year-old female with past medical history of A-fib, asthma, chronic hypoxic respiratory failure, CVA, GERD, hypertension, hyperlipidemia, diabetes mellitus, anxiety, CHAS on CPAP however noncompliant, TAVR on Coumadin, right parietal meningioma,
PE came to the hospital with change in mental status and CHF exacerbation. Change in mental status was likely thought was secondary to acute on chronic hypoxic hypercarbic respiratory failure secondary to CHF exacerbation and pulmonary
hypertension. Patient was seen by pulmonary and cardiology throughout hospitalization. Patient was initially started on IV diuretics however later she developed acute kidney injury where diuretics was then changed to oral. Patient was always
found noncompliant with her CPAP. CT scan was also done which showed pulmonary hypertension. Due to her noncompliance and pulmonary hypertension and CHF, she required oxygenation. While in the hospital she was also found to have liver lesion which
was seen on the CT scan, patient was then seen by oncology, interventional radiology and GI. They will recommended patient to follow-up with Dr. Gil from hematology outpatient. Patient was seen by physical therapy who recommended SNF. Once
her symptoms continue to improve, she was then discharged to rehab with instructions to follow-up with all of her physicians outpatient.
Discharge Plan
-
Patient Disposition: [facility]/SNF
Discharge Diagnosis/Procedures: Acute metabolic encephalopathy 2/2 acute on chronic hypoxic hypercarbic respiratory failure 2/2 HFpEF exacerbation
Pulmonary hypertension
Obstructive sleep apnea on CPAP
E. coli UTI
Acute kidney injury
Liver lesion seen on CT scan
Pulmonary atrial fibrillation
Anxiety/depression
Morbid obesity
Diet: 2 Gram Sodium and Restrict fluids to 48 oz
Activity: As tolerated
Driving Restrictions: As prior to admission
Bathing Restrictions: None
Blood Work: BMP in 1 week
Other Services: PT and OT
Specialty Instructions: Weigh Daily- Call MD for wt gain/loss 3 lbs overnight/5 lbs in 1 week
Activity Restrictions/Additional Instructions:
Wound Care Instructions Left Lateral Leg and Right Buttock Wound- Clean with normal saline or soap and water. Apply Honey Gel and silicone border foam. Change Q 48 hours and PRN if loose or for drainage
Turning schedule
Mineral oil to legs and left finger
Avoid sliding in recliner
Follow up at Lymphedema clinic as advised by Dietitian Teaching
Desenex Powder to groin
Please follow-up with hepatology as soon as possible for liver lesion
Home setting Tidal volume 300, IPAP/EPAP 15-5
Follow-up with the venetian blind cleaner outpatient
Instructions: *[facility] Heart Failure Instructions
Referrals:
Caleb Gil [Other] - in one to two weeks
Mike Mcmahan MD [Active] -
Sanjay Carrera DO [Family Provider] - in less than 1 week
Riana Bellamy DO [Active] -
Tiburcio Alejandro MD [Active] - 08/31/24 2:40 pm (You are scheduled to see Dr. Alejandro's physician assistant farm operations manager, Tavia, at the [place] office on 08/31/2024 at 2:40 PM. )
Prescriptions:
New
miconazole nitrate [Miconazorb AF] 2 % Powder
1 applic topical BID Qty: 85 0RF
warfarin [Jantoven] 2.5 mg Tablet
2.5 mg PO QPM Qty: 5 0RF
bumetanide 1 mg Tablet
3 mg PO DAILY Qty: 30 0RF
potassium chloride [Klor-Con] 20 mEq packet
20 meq PO BID Qty: 100 0RF
metoprolol succinate 50 mg Tablet Extended Release 24 Hr
50 mg PO DAILY Qty: 0 0RF
Continued
duloxetine 60 MG capsule,delayed release(DR/EC)
60 mg PO DAILY
metformin 500 mg Tablet
500 mg PO BID
atorvastatin 10 mg Tablet
10 mg PO DAILY
metoprolol succinate 50 mg Tablet Extended Release 24 Hr
100 mg PO DAILY
Yupelri 175 mcg/3 mL Solution For Nebulization
175 mcg INHALATION R DAILY
cyanocobalamin (vitamin B-12) [Vitamin B-12] 2,500 mcg Tablet, Sublingual
2,500 mcg SUBLINGUAL DAILY
budesonide 0.5 mg/2 mL Suspension For Nebulization
0.5 mg INHALATION R BID
arformoterol [Brovana] 15 mcg/2 mL Solution For Nebulization
2 ml INHALATION R BID
calcium carbonate-vitamin D3 [Oyster Shell Calcium-Vit D3] 500 MG tablet
500 mg PO DAILY
Hair, Skin and Nails (biotin) 10,000 mcg Tablet,Chewable
10,000 mcg PO DAILY
metoprolol succinate 50 mg tablet extended release 24 hr
50 mg PO HS
digoxin 125 mcg (0.125 mg) Tablet
125 mcg PO SUTUTHSA@0800
therapeutic multivitamin Tablet
1 tab PO DAILY
temazepam 15 mg Capsule
15 mg PO HS
ropinirole 0.25 mg Tablet
0.25 mg PO HS
gabapentin 300 mg Capsule
600 mg PO DAILY@1500
gabapentin 300 mg Capsule
300 mg PO HS
Jardiance 10 mg Tablet
10 mg PO DAILY
Discontinued
potassium chloride 20 mEq tablet extended release
20 meq PO DAILY Qty: 3 0RF
warfarin 2 mg Tablet
2 mg PO DAILY
torsemide 20 mg tablet
40 mg PO BID@0800,1600
Discharge Orders:
Discharge Patient (As Directed); Ordered 08/08/24
Ordered By: Sukhjinder Krueger
Discharge Date and Time
Discharge Date/Time: 08/08/24 13:22
Print Language: MALTESE
--- NOTE | 2024-08-08 11:18 | CM ---
Patient with Dx Patient with Dx Acute metabolic encephalopathy, acute hypoxic respiratory failure, HF. O2 6L. CPAP. Seen by wound care nurse. PT recommends skilled rehab. OT Eval pending.
Spoke with Ngoc, [facility]; they are able to accept the patient today. Ngoc confirms she has a high flow concentrator for the patient. CM confirmed that patient will provide her own supply of her 2 inhaler meds (Brovana & Yupelri) as well as
her CPAP.
Met with patient and spoke with by phone; both agree to [facility] today by ambulance. IMM done yesterday. Spoke with patient about compliance working with OT as well as PT - she said she would work with PT/OT.
Plan send patient to SNF with patient's CPAP, and Brovana & Yupelri inhalers.
Plan [facility] SNF today by ambulance.
[2024-08-08] MEDS: LIPITOR PO (11:57)
[2024-08-08] MEDS: NOVOLOG FLEXPEN-LOW RESISTANCE 1 UNITS SC (12:06)
[2024-08-08 12:19] LABS: Glucose - Point of Care 179 mg/dl (70-99)
== END 2024-08-08 13:22 | DRG 286 ==
LOC: IMU 14:04
PROVIDERS: Hospitalist; Internal Medicine; Internal Medicine Critical Care Medicine; Internal Medicine Interventional Cardiology; Nurse Practitioner Family; Physician Assistant Medical; Psychiatry & Neurology Psychiatry; Student in an Organized Health Care Education/Training Program; ADMITTING PHYSICIAN Hospitalist; ATTENDING PHYSICIAN Internal Medicine; CONSULT PHYSICIAN Internal Medicine; CONSULT PHYSICIAN Internal Medicine Critical Care Medicine; EMERGENCY PHYSICIAN Emergency Medicine; FAMILY PHYSICIAN Family Medicine; OTHER PHYSICIAN Internal Medicine Hematology & Oncology
PROC: 5A09357 Assistance with Respiratory Ventilation, Less than 24 Consecutive Hours, Continuous Positive Airway Pressure (ICD-10-PCS; 2024-07-20)
PROC: 4A023N6 Measurement of Cardiac Sampling and Pressure, Right Heart, Percutaneous Approach (ICD-10-PCS; 2024-07-31)
PROC: B2141ZZ Fluoroscopy of Right Heart using Low Osmolar Contrast (ICD-10-PCS; 2024-07-31)
DX: I11.0 Hypertensive heart disease with heart failure (principal); G92.8 Other toxic encephalopathy; L89.313 Pressure ulcer of right buttock, stage 3; I50.33 Acute on chronic diastolic (congestive) heart failure; J96.22 Acute and chronic respiratory failure with hypercapnia; J96.21 Acute and chronic respiratory failure with hypoxia; I48.21 Permanent atrial fibrillation; E66.2 Morbid (severe) obesity with alveolar hypoventilation; Z68.41 Body mass index [BMI] 40.0-44.9, adult; N17.9 Acute kidney failure, unspecified; I48.92 Unspecified atrial flutter; J98.11 Atelectasis; N39.0 Urinary tract infection, site not specified; R23.0 Cyanosis; I73.00 Raynaud's syndrome without gangrene; J44.9 Chronic obstructive pulmonary disease, unspecified; D32.0 Benign neoplasm of cerebral meninges; E11.40 Type 2 diabetes mellitus with diabetic neuropathy, unspecified; I08.1 Rheumatic disorders of both mitral and tricuspid valves; E78.00 Pure hypercholesterolemia, unspecified; F41.1 Generalized anxiety disorder; K21.9 Gastro-esophageal reflux disease without esophagitis; F32.A Depression, unspecified; I89.0 Lymphedema, not elsewhere classified; G25.81 Restless legs syndrome; I27.29 Other secondary pulmonary hypertension; G47.00 Insomnia, unspecified; E05.90 Thyrotoxicosis, unspecified without thyrotoxic crisis or storm; R82.71 Bacteriuria; B96.20 Unspecified Escherichia coli [E. coli] as the cause of diseases classified elsewhere; D75.1 Secondary polycythemia; K76.0 Fatty (change of) liver, not elsewhere classified; M79.7 Fibromyalgia; M19.90 Unspecified osteoarthritis, unspecified site; K80.20 Calculus of gallbladder without cholecystitis without obstruction; E87.6 Hypokalemia; I95.9 Hypotension, unspecified; Z11.52 Encounter for screening for COVID-19; Z95.3 Presence of xenogenic heart valve; Z79.01 Long term (current) use of anticoagulants; Z88.1 Allergy status to other antibiotic agents; Z88.2 Allergy status to sulfonamides; Z79.84 Long term (current) use of oral hypoglycemic drugs; Z79.51 Long term (current) use of inhaled steroids; Z86.73 Personal history of transient ischemic attack (TIA), and cerebral infarction without residual deficits; Z86.711 Personal history of pulmonary embolism; Z91.199 Patient's noncompliance with other medical treatment and regimen due to unspecified reason; Z98.84 Bariatric surgery status; Z91.81 History of falling; Z87.891 Personal history of nicotine dependence; Z99.81 Dependence on supplemental oxygen
CPT/HCPCS: 93308; 36600; 70450; 71045; 71275; 74183; 76705; 80048; 80053; 80162; 81003; 81015; 82105; 82248; 82306; 82378; 82607; 82746; 82805; 82962; 83036; 83735; 83880; 84100; 84132; 84443; 84484; 85025; 85027; 85610; 86301; 87070; 87077; 87086; 87186; 87811; 93005; 93321; 93325; 93451; 94640; 94660; 97116; 97163; 97167; 97530; 97535; A9575; C1894; Q9967

== ENCOUNTER → 2024-08-11 10:51 | Outpatient (REF) | payer OTHER, MEDICARE, SELFPAY ==
[2024-08-11 11:46] LABS: Hematocrit 49.5 % (37.0-47.0); Hemoglobin 16.1 g/dL (12.0-16.0); Mean Corp Hgb Conc. 32.5 g/dL (33.0-37.0); Mean Corpuscular Hgb 34.2 pg (27.0-31.0); Mean Corpuscular Volume 105.1 fL (81.0-99.0); Mean Platelet Volume 12.1 fL (7.4-10.4); Platelet Count 232 10^3/uL (130-400); Red Blood Cell Count 4.71 10^6/uL (4.20-5.40); Red Cell Dist. Width 17.2 % (11.5-14.5)
[2024-08-11 11:54] LABS: PT 26.2 Sec (11.4-14.6)
[2024-08-11 11:58] LABS: Blood Urea Nitrogen 45 mg/dl (7-17); Calcium 9.5 mg/dl (8.4-10.2); Carbon Dioxide 31 mmol/L (22-30); Chloride 97 mmol/L (98-107); Glucose 168 mg/dl (70-99); Sodium 140 mmol/L (135-145); eGFR 54.06
== END ==
LOC: OLABP 10:51
PROVIDERS: ATTENDING PHYSICIAN Family Medicine
DX: J96.11 Chronic respiratory failure with hypoxia (principal); F32.0 Major depressive disorder, single episode, mild; F41.9 Anxiety disorder, unspecified; I50.9 Heart failure, unspecified; N39.0 Urinary tract infection, site not specified; E66.01 Morbid (severe) obesity due to excess calories; I27.20 Pulmonary hypertension, unspecified; E11.9 Type 2 diabetes mellitus without complications; G47.33 Obstructive sleep apnea (adult) (pediatric); N17.9 Acute kidney failure, unspecified; L89.313 Pressure ulcer of right buttock, stage 3; I48.0 Paroxysmal atrial fibrillation; J45.909 Unspecified asthma, uncomplicated; J44.9 Chronic obstructive pulmonary disease, unspecified; E87.6 Hypokalemia; B96.20 Unspecified Escherichia coli [E. coli] as the cause of diseases classified elsewhere
CPT/HCPCS: 36415; 80048; 85027; 85610

== ENCOUNTER → 2024-08-14 09:26 | Outpatient (REF) | payer OTHER, MEDICARE, SELFPAY ==
[2024-08-14 11:10] LABS: INR 3.62; PT 35.8 Sec (11.4-14.6)
[2024-08-14 12:08] LABS: Blood Urea Nitrogen 41 mg/dl (7-17); Calcium 8.7 mg/dl (8.4-10.2); Carbon Dioxide 30 mmol/L (22-30); Chloride 97 mmol/L (98-107); Glucose 127 mg/dl (70-99); Potassium 3.6 mmol/L (3.5-5.1); Sodium 138 mmol/L (135-145); eGFR > 60.00
[2024-08-14 13:19] LABS: Urine Sodium < 5 mmol/L (30-90)
== END ==
LOC: OLABP 09:26
PROVIDERS: ATTENDING PHYSICIAN Family Medicine
DX: I50.9 Heart failure, unspecified (principal); G93.41 Metabolic encephalopathy; J96.11 Chronic respiratory failure with hypoxia; I27.20 Pulmonary hypertension, unspecified; E11.9 Type 2 diabetes mellitus without complications; N17.9 Acute kidney failure, unspecified; I48.0 Paroxysmal atrial fibrillation; J44.9 Chronic obstructive pulmonary disease, unspecified; E87.6 Hypokalemia; I10 Essential (primary) hypertension
CPT/HCPCS: 36415; 80048; 84300; 85610

== ENCOUNTER → 2024-08-16 10:04 | Outpatient (REF) | payer OTHER, MEDICARE, SELFPAY ==
[2024-08-16 10:55] LABS: INR 3.59; PT 36.1 Sec (11.4-14.6)
== END ==
LOC: OLABP 10:04
PROVIDERS: ATTENDING PHYSICIAN Family Medicine
DX: I48.0 Paroxysmal atrial fibrillation (principal); I10 Essential (primary) hypertension; E87.6 Hypokalemia; J44.9 Chronic obstructive pulmonary disease, unspecified; I50.9 Heart failure, unspecified; G93.41 Metabolic encephalopathy; J96.11 Chronic respiratory failure with hypoxia; I27.20 Pulmonary hypertension, unspecified; E11.9 Type 2 diabetes mellitus without complications
CPT/HCPCS: 36415; 85610

== ENCOUNTER → 2024-08-18 11:01 | Outpatient (REF) | payer OTHER, MEDICARE, SELFPAY ==
[2024-08-18 13:32] LABS: INR 2.28; PT 25.2 Sec (11.4-14.6)
== END ==
LOC: OLABP 11:01
PROVIDERS: ATTENDING PHYSICIAN Family Medicine
DX: I50.9 Heart failure, unspecified (principal); G93.41 Metabolic encephalopathy; J96.11 Chronic respiratory failure with hypoxia; I27.20 Pulmonary hypertension, unspecified; E11.9 Type 2 diabetes mellitus without complications; N17.9 Acute kidney failure, unspecified; I48.0 Paroxysmal atrial fibrillation; J44.9 Chronic obstructive pulmonary disease, unspecified; E87.6 Hypokalemia; I10 Essential (primary) hypertension
CPT/HCPCS: 36415; 85610

== ENCOUNTER → 2024-08-21 11:04 | Outpatient (REF) | payer OTHER, MEDICARE, SELFPAY ==
[2024-08-21 11:27] LABS: INR 1.73; PT 20.5 Sec (11.4-14.6)
== END ==
LOC: OLABP 11:04
PROVIDERS: ATTENDING PHYSICIAN Family Medicine
DX: J96.11 Chronic respiratory failure with hypoxia (principal); I50.9 Heart failure, unspecified; N39.0 Urinary tract infection, site not specified; F32.0 Major depressive disorder, single episode, mild; L89.313 Pressure ulcer of right buttock, stage 3; B96.20 Unspecified Escherichia coli [E. coli] as the cause of diseases classified elsewhere
CPT/HCPCS: 36415; 85610

== ENCOUNTER → 2024-08-23 14:04 | Outpatient (REF) | payer OTHER, MEDICARE, SELFPAY ==
[2024-08-23 14:20] LABS: Hematocrit 47.9 % (37.0-47.0); Hemoglobin 15.4 g/dL (12.0-16.0); Mean Corp Hgb Conc. 32.2 g/dL (33.0-37.0); Mean Corpuscular Hgb 34.3 pg (27.0-31.0); Mean Corpuscular Volume 106.7 fL (81.0-99.0); Mean Platelet Volume 11.5 fL (7.4-10.4); Platelet Count 224 10^3/uL (130-400); Red Blood Cell Count 4.49 10^6/uL (4.20-5.40); Red Cell Dist. Width 17.7 % (11.5-14.5); White Blood Cell Count 7.8 10^3/uL (4.8-10.8)
[2024-08-23 16:09] LABS: ALT (SGPT) 29 U/L (0-35); AST (SGOT) 42 U/L (14-36); Albumin 3.7 g/dl (3.5-5.0); Alkaline Phosphatase 254 U/L (38-126); Blood Urea Nitrogen 27 mg/dl (7-17); Calcium 9.9 mg/dl (8.4-10.2); Carbon Dioxide 28 mmol/L (22-30); Chloride 104 mmol/L (98-107); Glucose 181 mg/dl (70-99); Potassium 4.4 mmol/L (3.5-5.1); Sodium 144 mmol/L (135-145); Total Bilirubin 2.1 mg/dl (0.2-1.3); Total Protein 7.1 g/dl (6.3-8.2); eGFR > 60.00
== END ==
LOC: OLABP 14:04
PROVIDERS: ATTENDING PHYSICIAN Family Medicine
DX: J96.11 Chronic respiratory failure with hypoxia (principal); I50.9 Heart failure, unspecified; E66.01 Morbid (severe) obesity due to excess calories; L89.313 Pressure ulcer of right buttock, stage 3; F32.0 Major depressive disorder, single episode, mild; N39.0 Urinary tract infection, site not specified; I27.20 Pulmonary hypertension, unspecified; E11.9 Type 2 diabetes mellitus without complications; I73.00 Raynaud's syndrome without gangrene; I10 Essential (primary) hypertension; G47.33 Obstructive sleep apnea (adult) (pediatric); I87.2 Venous insufficiency (chronic) (peripheral); N17.9 Acute kidney failure, unspecified; I48.0 Paroxysmal atrial fibrillation; J45.909 Unspecified asthma, uncomplicated; J44.9 Chronic obstructive pulmonary disease, unspecified; E87.6 Hypokalemia; E11.40 Type 2 diabetes mellitus with diabetic neuropathy, unspecified
CPT/HCPCS: 36415; 80053; 85027

== ENCOUNTER → 2024-08-24 12:54 | Outpatient (REF) | payer OTHER, MEDICARE, SELFPAY ==
[2024-08-24 14:33] LABS: INR 1.81; PT 21.5 Sec (11.4-14.6)
== END ==
LOC: OLABP 12:54
PROVIDERS: ATTENDING PHYSICIAN Family Medicine
DX: L89.313 Pressure ulcer of right buttock, stage 3 (principal); G93.41 Metabolic encephalopathy; J96.11 Chronic respiratory failure with hypoxia; I50.9 Heart failure, unspecified; N39.0 Urinary tract infection, site not specified; F32.0 Major depressive disorder, single episode, mild; E66.01 Morbid (severe) obesity due to excess calories; I27.20 Pulmonary hypertension, unspecified; E11.9 Type 2 diabetes mellitus without complications; G47.33 Obstructive sleep apnea (adult) (pediatric); N17.9 Acute kidney failure, unspecified; I48.0 Paroxysmal atrial fibrillation; J45.909 Unspecified asthma, uncomplicated; J44.9 Chronic obstructive pulmonary disease, unspecified; E87.6 Hypokalemia; B96.20 Unspecified Escherichia coli [E. coli] as the cause of diseases classified elsewhere; I50.32 Chronic diastolic (congestive) heart failure; I73.00 Raynaud's syndrome without gangrene; I10 Essential (primary) hypertension; I87.2 Venous insufficiency (chronic) (peripheral)
CPT/HCPCS: 36415; 85610

== ENCOUNTER → 2024-08-28 09:31 | Outpatient (REF) | payer OTHER, MEDICARE, SELFPAY ==
[2024-08-28 11:07] LABS: PT 18.4 Sec (11.4-14.6)
== END ==
LOC: OLABP 09:31
PROVIDERS: ATTENDING PHYSICIAN Family Medicine
DX: G93.41 Metabolic encephalopathy (principal); J96.11 Chronic respiratory failure with hypoxia; I50.9 Heart failure, unspecified; N39.0 Urinary tract infection, site not specified; F32.0 Major depressive disorder, single episode, mild; E66.01 Morbid (severe) obesity due to excess calories; I27.20 Pulmonary hypertension, unspecified; E11.9 Type 2 diabetes mellitus without complications; L89.313 Pressure ulcer of right buttock, stage 3; G47.33 Obstructive sleep apnea (adult) (pediatric); N17.9 Acute kidney failure, unspecified; I48.0 Paroxysmal atrial fibrillation; J45.909 Unspecified asthma, uncomplicated; J44.9 Chronic obstructive pulmonary disease, unspecified; E87.6 Hypokalemia; I50.30 Unspecified diastolic (congestive) heart failure; I73.00 Raynaud's syndrome without gangrene; I10 Essential (primary) hypertension; I87.2 Venous insufficiency (chronic) (peripheral)
CPT/HCPCS: 36415; 85610

== ENCOUNTER → 2024-08-31 11:42 | Outpatient (REF) | payer OTHER, MEDICARE, SELFPAY ==
[2024-08-31 12:44] LABS: PT 17.7 Sec (11.4-14.6)
== END ==
LOC: OLABP 11:42
PROVIDERS: ATTENDING PHYSICIAN Family Medicine
DX: L89.313 Pressure ulcer of right buttock, stage 3 (principal); G93.41 Metabolic encephalopathy; J96.11 Chronic respiratory failure with hypoxia; I50.9 Heart failure, unspecified; N39.0 Urinary tract infection, site not specified; F32.0 Major depressive disorder, single episode, mild; E66.01 Morbid (severe) obesity due to excess calories; I27.20 Pulmonary hypertension, unspecified; E11.9 Type 2 diabetes mellitus without complications; G47.33 Obstructive sleep apnea (adult) (pediatric); N17.9 Acute kidney failure, unspecified; I48.0 Paroxysmal atrial fibrillation; J45.909 Unspecified asthma, uncomplicated; J44.9 Chronic obstructive pulmonary disease, unspecified; E87.6 Hypokalemia; B96.20 Unspecified Escherichia coli [E. coli] as the cause of diseases classified elsewhere
CPT/HCPCS: 36415; 85610

== ENCOUNTER 2024-09-15 19:01 | Inpatient (IN) | payer MEDICARE, OTHER, SELFPAY ==
[2024-09-15] VITALS (8 sets, daily range): BP systolic 97–122; BP diastolic 61–80; BMI 51.8
--- NOTE | 2024-09-15 14:33 | ED.GENMED ---
History of Present Illness
General
Chief Complaint: Breathing Problem
Source: patient
Exam Limitations: none
Time Seen by Provider: 09/15/24 14:33
Nursing documentation reviewed up to this point in time: agreed with
History of Present Illness
History of Present Illness:
Patient is a 69-year-old female past medical history of A-fib CHF pulmonary hypertension hyperlipidemia, diabetes anxiety obstructive sleep apnea with the CPAP however noncompliant, TAVR on Coumadin right parietal meningioma hypertension COPD on
home O2 reflux presents to the ER for evaluation. reports [facility] and has declined gradually. He reports today she was so weak she could not even stand and walk with her walker.
He also reports her pulse ox was low. She is on chronic 4 L. He reports she is confused but this is not normal, she has been evaluated for this and there is no diagnosis.
reports pt is not complaint with her CPAP and her meds. she camacho not take Bumex consistently.
Past History
Past History
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
obesity, right parietal meningioma)
ED Past Surgical History: Cardiac (Have our) and Orthopedic
Social History
Tobacco: Non-smoker
Alcohol: Occasional
Drug: None
Personal:
Living: with family
Family History
Family History: Other (Reviewed and noncontributory)
Review of Systems
Review of Systems
Allergies reviewed?: Yes
Other source history: family
All Other Systems: ROS reviewed and negative except as documented in HPI and ROS
Constitutional: Reports fatigue
Respiratory: Reports trouble breathing
: Reports no symptoms
Musculoskeletal: Reports other (increasing edema )
Skin: Reports no symptoms
Phy Exam
General Physical Exam
General Presentation: no apparent distress
General age: appears older than age
General Skin: warm and dry
General Habitus: elderly and obese
General Mental: alert
General Hydration: appears well hydrated
Cardiovascular Exam
Cardiovascular Exam: regular rate/rhythm, no murmur and normal peripheral pulses
Pulmonary Exam
Pulmonary Exam: other (dec at bases )
Neurological Exam
Neurological Exam: alert and other (does not give history follow commands mildly confused )
Musculoskeletal Exam
Musculoskeletal Exam: other (Significant swelling lower extremities chronic as per bluish discoloration of toes( reports Raynaud's) however warm to touch as pulses by Doppler)
Skin Exam
Skin Exam: normal color and warm/dry
Psychiatric Exam
Psychiatric Exam: normal mood/affect
Scores
Heart Failure Risk
Heart Failure Risk Score: Not Applicable
Course
Orders/Labs/Results
Orders:
Orders
09/15/24 14:26
Electrocardiogram (*1) Urgent
Reason for Study: Shortness of Breath
EKG- Treatment ONCE
09/15/24 14:37
Complete Blood Count/With Diff Urgent
Comprehensive Metabolic Panel Urgent
Pro-BNP [NT-proBNP] Urgent
Troponin I Urgent
09/15/24 14:58
ABG [Arterial Blood Gas] Urgent
%Oxygen/Room Air: 4l
09/15/24 15:08
PT/INR [Prothrombin Time] Urgent
09/15/24 15:22
High Flow Oxygen Therapy [O2 Therapy] [RESP] Urgent
High Flow Nasal Cannula Liter Flow: 60
Titrate/Wean O2 to maintain O2 sat greater than (%): 90
09/15/24 15:59
Chest X-ray Portable [CR Chest Portable - 1 View] Urgent
Comment:
Reason For Exam: sob
Reason Study Needs to be Portable: Unable to Transport
09/15/24 17:27
Bumetanide [Bumex] 2 mg IV NOW STA
Abnormal Lab Results
09/15/24 09/15/24 09/15/24
14:37 14:58 15:08
Hct 47.4 H %
(37.0-47.0)
MCV 105.1 H fL
(81.0-99.0)
MCH 33.5 H pg
(27.0-31.0)
MCHC 31.9 L g/dL
(33.0-37.0)
RDW 19.1 H %
(11.5-14.5)
MPV 11.7 H fL
(7.4-10.4)
Absolute Monos (auto) 0.8 H 10^3/uL
(0.1-0.6)
Monocytes % 13.1 H %
(1.7-9.3)
PT 31.9 H Sec
(11.4-14.6)
pH 7.46 H
(7.35-7.45)
pCO2 41 H mmHg
(32-35)
pO2 51 L* mmHg
(83-108)
HCO3 29.2 H mmol/L
(21-28)
ABG O2 Sat (Measured) 84.8 L %
(94-98)
Carbon Dioxide 31 H mmol/L
(22-30)
BUN 33 H mg/dl
(7-17)
Glucose 147 H mg/dl
(70-99)
Total Bilirubin 3.4 H mg/dl
(0.2-1.3)
AST 39 H U/L
(14-36)
Alkaline Phosphatase 240 H U/L
(38-126)
09/15/24 14:37
09/15/24 14:37
Vital Signs
Initial and Last Documented VS:
Initial Vital Signs
Pulse Resp BP Pulse Ox
91 18 122/62 93
09/15/24 14:22 09/15/24 14:22 09/15/24 14:22 09/15/24 14:22
Last Documented Vital Signs
Temp Pulse Resp BP Pulse Ox
97.6 F 87 15 108/74 100
09/15/24 14:28 09/15/24 17:36 09/15/24 17:00 09/15/24 17:36 09/15/24 16:45
Night Shift Supervisor consulted with Physician
Night Shift Supervisor consulted with physician?: Yes
Name of Physician Consulted: Raeann
MDM/Problems Addressed
MDM/Problems Addressed:
Patient as documented is a 69-year-old chronic respiratory failure chronic medical conditions on CPAP and oxygen at night but does not comply with CPAP during sleep. She is also noncompliant on Bumex. She was recently discharged from rehab several
weeks ago and has been noticed a steady decline. Her pulse ox was low today and she has had increasing weakness and shortness of breath. Patient presented here awake alert she is confused has not reports this is not new they do not have a clear
diagnosis for this confusion. She is able to follow commands. She is and her PO2 on ABG was found to be 51 or pCO2 41. She was placed on high flow and weaning down. X-ray does show interstitial edema patient was given a dose of Bumex as she did
not take today is normally noncompliant. will require hospitalization
Chronic conditions affecting care:
A-fib asthma chronic hypoxic respiratory failure CVA GERD hypertension hyperlipidemia diabetes anxiety obstructive sleep apnea TAVR
*Critical Care Note
Total Time (30-74mins, 75-104mins- exclusive of procedures): Not Applicable
ED Attending Note
-
Portions of this chart may have been created with voice recognition software.� Occasional wrong word or��sound alike� substitutions may have occurred due to the inherent limitations of voice recognition software.
Discharge Plan
Departure
Prescriptions:
No Action
duloxetine 60 MG capsule,delayed release(DR/EC)
60 mg PO DAILY
metformin 500 mg Tablet
500 mg PO BID
atorvastatin 10 mg Tablet
10 mg PO DAILY
metoprolol succinate 50 mg Tablet Extended Release 24 Hr
150 mg PO DAILY
Yupelri 175 mcg/3 mL Solution For Nebulization
175 mcg INHALATION R DAILY
cyanocobalamin (vitamin B-12) [Vitamin B-12] 2,500 mcg Tablet, Sublingual
2,500 mcg SUBLINGUAL DAILY
budesonide 0.5 mg/2 mL Suspension For Nebulization
0.5 mg INHALATION R BID
arformoterol [Brovana] 15 mcg/2 mL Solution For Nebulization
2 ml INHALATION R BID
calcium carbonate-vitamin D3 [Oyster Shell Calcium-Vit D3] 500 MG tablet
500 mg PO DAILY
Hair, Skin and Nails (biotin) 10,000 mcg Tablet,Chewable
10,000 mcg PO DAILY
metoprolol succinate 50 mg tablet extended release 24 hr
50 mg PO HS
digoxin 125 mcg (0.125 mg) Tablet
125 mcg PO SUTUTHSA@0800
therapeutic multivitamin Tablet
1 tab PO DAILY
temazepam 15 mg Capsule
15 mg PO HS
ropinirole 0.25 mg Tablet
0.25 mg PO HS
gabapentin 300 mg Capsule
600 mg PO DAILY@1500
gabapentin 300 mg Capsule
300 mg PO HS
Jardiance 10 mg Tablet
10 mg PO DAILY
bumetanide 1 mg Tablet
3 mg PO DAILY Qty: 30 0RF
potassium chloride [Klor-Con] 20 mEq packet
20 meq PO BID Qty: 100 0RF
miconazole nitrate [Miconazorb AF] 2 % powder
1 applic topical BID
warfarin [Jantoven] 2.5 mg tablet
2 mg PO QPM
Referrals:
Sanjay Carrera DO [Family Provider] -
Interventions
Interventions:
*Risk Screen - Suicide Last Done: 09/15/24 14:22
*General Assessment Last Done: 09/15/24 14:22
*Neglect/Abuse Screening Last Done: 09/15/24 14:22
*ED- Fall Risk Assessment Last Done: 09/15/24 16:59
*ED COVID-19 Vaccine History Last Done: 09/15/24 14:39
ED- Cardiac Assessment Last Done: 09/15/24 14:39
ED- Pulmonary Assessment Last Done: 09/15/24 14:39
Discharge Date and Time
Print Language: ITALIAN
[2024-09-15 14:53] LABS: % Basophils 1.6 % (0-2); % Eosinophils 2.8 % (0-6); % Immature Granulocytes 0.2 % (0-0.5); % Lymphocytes 27.9 % (20.5-51.1); % Monocytes 13.1 % (1.7-9.3); % Neutrophils 54.4 % (42.2-75.2); Absolute Basophils 0.1 10^3/uL (0-0.2); Absolute Eosinophils 0.2 10^3/uL (0-0.7); Absolute Lymphocytes 1.7 10^3/uL (1.2-3.4); Absolute Monocytes 0.8 10^3/uL (0.1-0.6); Absolute Neutrophils 3.3 10^3/uL (1.4-6.5); Hematocrit 47.4 % (37.0-47.0); Hemoglobin 15.1 g/dL (12.0-16.0); Mean Corp Hgb Conc. 31.9 g/dL (33.0-37.0); Mean Corpuscular Hgb 33.5 pg (27.0-31.0); Mean Corpuscular Volume 105.1 fL (81.0-99.0); Mean Platelet Volume 11.7 fL (7.4-10.4); Nucleated Red Blood Cells % 0.5 %; Platelet Count 236 10^3/uL (130-400); Red Blood Cell Count 4.51 10^6/uL (4.20-5.40); Red Cell Dist. Width 19.1 % (11.5-14.5); White Blood Cell Count 6.1 10^3/uL (4.8-10.8)
[2024-09-15 15:06] LABS: B.E. 4.9 mmol/L; HCO3 29.2 mmol/L (21-28); O2 Saturation % 84.8 % (94-98); PCO2 41 mmHg (32-35); pH 7.46 (7.35-7.45)
[2024-09-15 15:08] LABS: ALT (SGPT) 24 U/L (0-35); AST (SGOT) 39 U/L (14-36); Alkaline Phosphatase 240 U/L (38-126); Blood Urea Nitrogen 33 mg/dl (7-17); Calcium 9.7 mg/dl (8.4-10.2); Carbon Dioxide 31 mmol/L (22-30); Chloride 101 mmol/L (98-107); Estimated Creatinine Clearance 69 ml/min; Glucose 147 mg/dl (70-99); Sodium 141 mmol/L (135-145); Total Bilirubin 3.4 mg/dl (0.2-1.3); Total Protein 7.9 g/dl (6.3-8.2); eGFR > 60.00
[2024-09-15 15:09] LABS: PO2 51 mmHg (83-108)
[2024-09-15 15:18] LABS: NT-proBNP 833 pg/ml; Troponin I 0.014 ng/ml
[2024-09-15 15:24] LABS: INR 3.11; PT 31.9 Sec (11.4-14.6)
[2024-09-15] MEDS: BUMEX 2 MG IV (17:36)
--- NOTE | 2024-09-15 17:49 | HPS.HSE ---
Family Physician
-
Family Physician: Sanjay Carrera
Chief Complaint
-
Hypoxia and Lower Extremity Edema
History of Present Illness
Patient is a 69 y/o female with an extensive past medical medical history including chronic hypoxic respiratory failure, chronic heart failure, atrial fibrillation, valvular heart disease, hypertension, diabetes, COPD and morbid obesity who presents
with hypoxia and lower extremity edema. Patient had a prolonged hospital stay earlier this year with acute heart failure. Following that hospitalization patient was transferred to a long term facility where she stayed for 3 weeks, and was
discharged home. Patient has been home for two weeks and has noted a slow decline in her status since then. Today patient was notably confused, and found be significantly hypoxic with pulse ox in the 40s on her usual 4L oxygen via nasal
canula. notes increased lower extremity edema. Review of records show a 40lb weight gain since her prior hospitalization.
Medical History
Past Medical History
Past Medical History: Reports Other
Additional Past Medical History:
Chronic Hypoxemic Respiratory Failure
ASCVD / CVA
Paroxysmal Atrial Fibrillation
Chronic HFpEF
Aortic Stenosis s/p TAVR
Moderate/Severe Tricuspid Regurgitation
Pulmonary Hypertension
Essential Hypertension
Hyperlipidemia
Diabetes Mellitus, Type II
CHAS - Intolerant of PAP Therapy
COPD
Restrictive Lung Disease
Morbid Obesity
History of PE
Osteoarthritis
Fibromyalgia
Anxiety / Depression
Raynaud's
Past Surgical History: Reports Other
Additional Past Surgical History:
TAVR (04/30/22)
D&C x 2
Bilateral TKA
Septoplasty
Gastric Sleeve
Social History
Tobacco: Former Smoker (Quit in 1999. Approx 20 pack years total use.)
Alcohol: Occasional (Rare)
Drug: None
Personal:
Living: With Family
Family History
Family History: Other (Family history of arthritis.)
Allergies / Home Medications
Allergies reflects when Allergies were last updated in [employer].
Home Medications with original date entered in [employer]
Allergy/Medication List:
Allergies
Allergy/AdvReac Type Severity Reaction Status Date / Time
amoxicillin trihydrate Allergy patient Verified 09/15/24 14:22
[From Augmentin] states
severe
nausea and
intestinal
pain
cat dander Allergy Sinus Verified 09/15/24 14:22
congestion
cigarette smoke Allergy Positive Verified 09/15/24 14:22
skin test
to tobacco
dog dander Allergy Sinus Verified 09/15/24 14:22
congestion
grass pollen Allergy Sinus Verified 09/15/24 14:22
congestion,
cough
levofloxacin [From Levaquin] Allergy GI Symptoms Verified 09/15/24 14:22
mold Allergy Sinus Verified 09/15/24 14:22
congestion,
cough
Sulfa (Sulfonamide Allergy INTESTINAL Verified 09/15/24 14:22
Antibiotics) PAIN
tree and shrub pollen Allergy Sinus Verified 09/15/24 14:22
congestion,
cough
Home Medications
duloxetine 60 mg capsule,delayed release 60 mg PO DAILY Mental Health/Anxiety 01/11/14
atorvastatin 10 mg tablet 10 mg PO DAILY High cholesterol 02/10/22
metformin 500 mg tablet 500 mg PO BID Diabetes 02/10/22
metoprolol succinate 50 mg tablet,extended release 24 hr 150 mg PO DAILY Blood pressure 02/10/22
revefenacin 175 mcg/3 mL solution for nebulization (Yupelri) 175 mcg inhalation R DAILY Lung/breathing issues 02/10/22
arformoterol 15 mcg/2 mL solution for nebulization (Brovana) 2 ml inhalation R BID Lung/breathing issues 04/02/22
budesonide 0.5 mg/2 mL suspension for nebulization 0.5 mg inhalation R BID Lung/breathing issues 04/02/22
cyanocobalamin (vitamin B-12) 2,500 mcg sublingual tablet (Vitamin B-12) 2,500 mcg sublingual DAILY Supplement 04/02/22
calcium 500 mg (as carbonate)-vitamin D3 5 mcg (200 unit) tablet (Oyster Shell Calcium-Vitamin D3) 500 mg PO DAILY Supplement 04/08/22
biotin 10,000 mcg chewable tablet (Hair, Skin and Nails (biotin)) 10,000 mcg PO DAILY Supplement 01/19/24
digoxin 125 mcg (0.125 mg) tablet 125 mcg PO SUTUTHSA@0800 Heart Disease/Condition 03/03/24
metoprolol succinate 50 mg tablet,extended release 24 hr 50 mg PO HS Arrhythmia 03/03/24
gabapentin 300 mg capsule 300 mg PO HS Pain 04/29/24
gabapentin 300 mg capsule 600 mg PO DAILY@1500 Pain 04/29/24
ropinirole 0.25 mg tablet 0.25 mg PO HS Neurological Condition 04/29/24
temazepam 15 mg capsule 15 mg PO HS Sleep 04/29/24
therapeutic multivitamin 1 tab PO DAILY Supplement 04/29/24
empagliflozin 10 mg tablet (Jardiance) 10 mg PO DAILY Diabetes 07/20/24
bumetanide 1 mg tablet 3 mg (3 x 1 mg) PO DAILY #30 tabs 08/05/24
potassium chloride 20 mEq oral packet (Klor-Con) 20 meq PO BID #100 ea 08/05/24
miconazole nitrate 2 % topical powder (Miconazorb AF) 1 applic topical BID folds 09/15/24
warfarin 2.5 mg tablet (Jantoven) 2 mg PO QPM 09/15/24
Review of Systems
-
Unable to obtain full review of systems at this time due to: Acuity
Constitutional: Denies Fever
Respiratory: Reports See HPI
Cardiac: Denies Chest Pain
Physical Exam
Vital Signs
Vital Signs
Temp Pulse Resp BP Pulse Ox
97.6 F 87 15 108/74 100
09/15/24 14:28 09/15/24 17:36 09/15/24 17:00 09/15/24 17:36 09/15/24 16:45
Physical Exam
General: Well Developed, Well Nourished and Morbidly Obese
HEENT: Anicteric, Moist mucous membranes and Oxygen (Mid-Flow)
Respiratory: Decreased Breath Sounds (Poor inspiratory effort)
Cardiac: S1/S2 and Irregular Rhythm
GI: Soft and Non Tender
Rectal: Deferred by Provider
Musculoskeletal: No Clubbing, Cyanosis (Patient with known Raynauds) and Other (Pitting edema bilateral lower extremities)
Skin: Warm and Dry
Neuro: Awake, Alert and Nonfocal/grossly intact
Laboratory Results
-
09/15/24 14:37
09/15/24 14:37
Laboratory Results
PT 31.9 Sec (11.4-14.6) H 09/15/24 15:08
INR 3.11 09/15/24 15:08
pH 7.46 (7.35-7.45) H 09/15/24 14:58
pCO2 41 mmHg (32-35) H 09/15/24 14:58
pO2 51 mmHg (83-108) L* 09/15/24 14:58
HCO3 29.2 mmol/L (21-28) H 09/15/24 14:58
Total Bilirubin 3.4 mg/dl (0.2-1.3) H 09/15/24 14:37
AST 39 U/L (14-36) H 09/15/24 14:37
ALT 24 U/L (0-35) 09/15/24 14:37
Alkaline Phosphatase 240 U/L (38-126) H 09/15/24 14:37
Troponin I 0.014 ng/ml 09/15/24 14:37
Data Reviewed
-
Diagnostic Radiology: Report Reviewed by me
Lab Data: Labs Reviewed by me
Impression/Plan
-
Acute on Chronic Hypoxemic Respiratory Failure secondary to Acute Heart Failure
-Admit to IMU
-Continue high flow oxygen
-Consult Pulmonary
Acute on Chronic HFpEF
-Consult Cardiology
-Continue Bumex 3mg IV BID
-Continue Jardiance
-Monitor Is&Os and Daily Weights
-Continue low sodium diet and fluid restriction
Permanent Atrial Fibrillation
-Patient current in rate controlled atrial fibrillation
-Continue digoxin and metoprolol
-Continue Coumadin - Monitor INR daily
Hyperlipidemia
-Continue atorvastatin
Diabetes Mellitus, Type II
-Hold metformin
-Continue Jardiance
-Monitor sugars and continue coverage insulin
CHAS - Intolerant of PAP Therapy per prior records
COPD / Restrictive Lung Disease - No acute exacerbation
Pulmonary Hypertension
-Continue budesonide neb
-Continue DuoNeb QID and PRN
Fibromyalgia
-Continue Duloxetine and Gabapentin
Anxiety / Depression
-Continue Duloxetine
-Continue temazepam
Morbid Obesity due Excess Calories
-Affects all aspects of care
Code Status: DNR confirmed with patient and patient's at the bedside at time of admission
[2024-09-15] MEDS: BUMEX 1 MG IV (18:21)
--- NOTE | 2024-09-15 18:45 | CON.CAR ---
Consultation
Consultation Request
Date/Time Consultation Requested: 09/15/2024, 1814
Date/Time Consultation Performed: 09/15/2024, 1829
Requesting Provider: Jazzmine Linda
Performing Provider: Suraj Driver
Reason for Consultation: SOB, HF
Medical History
-
Chief Complaint: SOB, HF
History of Present Illness:
Patient is a pleasant 69-year-old female with a past medical history significant for persistent atrial fibrillation (rate controlled), chronic Coumadin therapy, NSVT, hypertension, diabetes mellitus type 2, status post TAVR 2021, severe pulmonary
hypertension, COPD chronically on 3 L nasal cannula, right posterior CVA, right parietal meningioma, sleep apnea intolerant to CPAP, hyperlipidemia, morbid obesity, chronic lipidemia, history of PE, liver lesion, subclinical hypothyroidism, prior
gastric bypass, depression/anxiety/insomnia with serotonin syndrome 03/22/2024, polypharmacy, history of falls who presented from home due to metabolic encephalopathy, acute on chronic respiratory failure. Cardiology is consulted for possible acute
on chronic heart failure with preserved ejection fraction. In discussion with patient and her , patient was discharged 2 weeks ago from [facility] rehab (previously admitted to 07/20-08/08 due to similar presentation) with increasing weight,
worsening shortness of breath, reported fever and chills, increasing BL edema and erythema, and foul smelling urine. Additionally, is reporting increasing/worsening confusion. In discussion with patient, she denies any chest pain,
near-syncope, syncope, PND, palpitations, weakness. She is reporting shortness of breath, orthopnea, edema, abdominal swelling. Patient/ had reported increasing salt diet while at [employer] [facility] and increasing weight since that time. And has
been reported urine still medications. Additionally, patient had been prescribed cephalexin for her lower extremity cellulitis which should not improved. His lab work shows no leukocytosis or evidence of anemia however BNP 833. Troponin 0.014.
Chest x-ray today demonstrates mild interstitial pulmonary edema. Patient was noted to be hypoxic and placed on high flow nasal cannula improving O2 sats. Patient was given IV Bumex in the emergency department. EKG shows atrial fibrillation 88
bpm PVC versus aberrant conduction.Patient had been scheduled to see Dr. Alejandro today at 3:20 PM however when evaluated by PT at home was noted to be hypoxic and therefore taken to [facility].
Past Medical History
Past Medical History: Other (See HPI)
Past Surgical History: Cardiac
Social History
Tobacco: Non-Smoker
Alcohol: None
Drug: None
Personal:
Living: With Family
Family History
Family History: Reviewed & Not Pertinent
Allergies / Home Medications
Allergy/AdvReac Type Severity Reaction Status Date / Time
amoxicillin trihydrate Allergy patient Verified 09/15/24 14:22
[From Augmentin] states
severe
nausea and
intestinal
pain
cat dander Allergy Sinus Verified 09/15/24 14:22
congestion
cigarette smoke Allergy Positive Verified 09/15/24 14:22
skin test
to tobacco
dog dander Allergy Sinus Verified 09/15/24 14:22
congestion
grass pollen Allergy Sinus Verified 09/15/24 14:22
congestion,
cough
levofloxacin [From Levaquin] Allergy GI Symptoms Verified 09/15/24 14:22
mold Allergy Sinus Verified 09/15/24 14:22
congestion,
cough
Sulfa (Sulfonamide Allergy INTESTINAL Verified 09/15/24 14:22
Antibiotics) PAIN
tree and shrub pollen Allergy Sinus Verified 09/15/24 14:22
congestion,
cough
�Medication �Instructions �Recorded �Confirmed �Type
duloxetine 60 mg capsule,delayed 60 mg PO DAILY Mental 01/11/14 09/15/24 History
release Health/Anxiety
atorvastatin 10 mg tablet 10 mg PO DAILY High cholesterol 02/10/22 09/15/24 History
metformin 500 mg tablet 500 mg PO BID Diabetes 02/10/22 09/15/24 History
metoprolol succinate 50 mg 150 mg PO DAILY Blood pressure 02/10/22 09/15/24 History
tablet,extended release 24 hr
revefenacin 175 mcg/3 mL solution 175 mcg inhalation R DAILY 02/10/22 09/15/24 History
for nebulization (Yupelri) Lung/breathing issues
arformoterol 15 mcg/2 mL solution 2 ml inhalation R BID 04/02/22 09/15/24 History
for nebulization (Brovana) Lung/breathing issues
budesonide 0.5 mg/2 mL suspension 0.5 mg inhalation R BID 04/02/22 09/15/24 History
for nebulization Lung/breathing issues
cyanocobalamin (vitamin B-12) 2,500 mcg sublingual DAILY 04/02/22 09/15/24 History
2,500 mcg sublingual tablet Supplement
(Vitamin B-12)
calcium 500 mg (as 500 mg PO DAILY Supplement 04/08/22 09/15/24 History
carbonate)-vitamin D3 5 mcg (200
unit) tablet (Oyster Shell
Calcium-Vitamin D3)
biotin 10,000 mcg chewable tablet 10,000 mcg PO DAILY Supplement 01/19/24 09/15/24 History
(Hair, Skin and Nails (biotin))
digoxin 125 mcg (0.125 mg) tablet 125 mcg PO SUTUTHSA@0800 Heart 03/03/24 09/15/24 History
Disease/Condition
metoprolol succinate 50 mg 50 mg PO HS Arrhythmia 03/03/24 09/15/24 History
tablet,extended release 24 hr
gabapentin 300 mg capsule 300 mg PO HS Pain 04/29/24 09/15/24 History
gabapentin 300 mg capsule 600 mg PO DAILY@1500 Pain 04/29/24 09/15/24 History
ropinirole 0.25 mg tablet 0.25 mg PO HS Neurological 04/29/24 09/15/24 History
Condition
temazepam 15 mg capsule 15 mg PO HS Sleep 04/29/24 09/15/24 History
therapeutic multivitamin 1 tab PO DAILY Supplement 04/29/24 09/15/24 History
empagliflozin 10 mg tablet 10 mg PO DAILY Diabetes 07/20/24 09/15/24 History
(Jardiance)
bumetanide 1 mg tablet 3 mg (3 x 1 mg) PO DAILY #30 tabs 08/05/24 09/15/24 Rx
potassium chloride 20 mEq oral 20 meq PO BID #100 ea 08/05/24 09/15/24 Rx
packet (Klor-Con)
miconazole nitrate 2 % topical 1 applic topical BID folds 09/15/24 09/15/24 History
powder (Miconazorb AF)
warfarin 2.5 mg tablet (Jantoven) 2 mg PO QPM 09/15/24 09/15/24 History
Review of Systems
-
History Source: Patient and Family
Constitutional: Fever, Weight Gain and Chills
EENT: No Symptoms
Respiratory: Cough and Trouble Breathing
Cardiac: No Symptoms
Abdomen/GI: No Symptoms
: Dysuria
Musculoskeletal: Edema (BL LE)
Skin: Rash (BL LE with RLE wounds)
Neurological: No Symptoms
Endocrine: No Symptoms
Hematologic/Lymphatic: No Symptoms
Physical Exam
Vital Signs
Temp Pulse Resp BP Pulse Ox
97.6 F 87 14 113/64 100
09/15/24 14:28 09/15/24 18:21 09/15/24 18:00 09/15/24 18:21 09/15/24 16:45
Lab Results
09/15/24 14:37
09/15/24 14:37
Troponin I 0.014 ng/ml 09/15/24 14:37
Rsn-A-Tyhapigslex Pept 833 pg/ml 09/15/24 14:37
Physical Exam:
GENERAL: on HFNC, comfortable but tearful
EYE: sclera anicteric
NECK: Supple, no JVD, no carotid bruit appreciated
ENT: normal nose, moist mucosal membranes
CARDIAC: Irregularly Irregular, +S1/S2, 2/6 systolic murmur; no rubs, or gallops
CHEST/PULMONARY: Normal effort, distant breath sounds, decreased at bases, faint crackles anteriorly
ABDOMEN: Soft, without focal tenderness or distention
NEUROLOGICAL: Alert and oriented x3
SKIN: Warm and dry; 3+ tense edema to knees; BL erythema R>L with various healing ulcerations
PSYCH: Normal and appropriate interaction; AOx3
Impression / Plan
-
PCP: Dr. Sanjay Carrera
Primary Line Runner: Dr. CHAVA Alejandro
Impression:
Admitted with confusion/metabolic encephalopathy
- similar admission 07/20/24
Acute on chronic hypoxemic respiratory failure
Acute on chronic HFpEF
- BNP 833 (prior admission 1270)
- Reported '40 lb' weight gain since discharge per patient/
- CXR 09/15/24 mild interstitial edema
Admission to [facility] for syncope vs fall 07/10-07/11/24
Persistent AFib, rate controlled
Chronic Coumadin therapy, managed by cardiology
NSVT, 07/21/24
Essential HTN
DM2
h/o TAVR 2021
Severe pulm HTN
COPD, chronically on 3L NC
h/o R post CVA
h/o R parietal meningioma
CHAS: intolerant of CPAP
Hyperlipidemia
Morbid obesity
Chronic lymphedema
History of PE
Uncharacterized liver lesion
Subclinical hyperthyroidism
History of gastric bypass
Depression/anxiety/insomnia with history of serotonin syndrome admission 03/2024
Polypharmacy
History of falls
Echo 07/10/2024: EF 70 to 75%, evidence of RV pressure and volume overload, mild concentric LVH, MAC, mild MS with peak/mean gradients 9/5 mmHg, trace MR, number 29 mm Medtronic Evolut TAVR with peak/mean gradient 6/3 mmHg, moderate to severe TR, PAP
79 mmHg, severely dilated right heart, no significant change compared to prior
Echo 07/21/24:EF 70-75%, dilated RV with RV hypokinesis, mean mitral gradient 5, mild MR, status post Evolut transcatheter aortic valve with mean gradient of 6 and no AI, moderate TR with PA pressure 73
RIGHT HEART CATHETERIZATION Date of Procedure: 07/31/24
Hemodynamics (mmHg):
RA (m) : 21
RV (s/d,m) : 76/10, 18
PA (s/d, m) : 76/33, 48
PCWP (m) : 38
Cardiac Output : 2.9 L/min
Cardiac Index : 1.4 L/min/m-2
Systemic vascular resistance: 21 Wood units or 1684 [id number](-5)
Pulmonary vascular resistance: 3.5 Wood units or 281 [id number](-5)
Recommendations:
- Evidence of overload on examination, agree with IV bumex 3 mg BID (similar to prior admission)
- Monitor on telemetry, intake/output, daily weights, and renal function
- Patient reporting worsening LE erythema, F/C, underlying infection may contribute to her current state and encephalopathy
- Consider addition of metolazone if no adequate diuresis within next 24-48h
- Continue coumadin goal INR 2-3 (2.5 m daily)
- No indication for repeat echocardiogram at this current juncture
- OK to resume beta-giovanni, digoxin; monitor dig level while in-patient
- Further recommendations to follow clinical course
Data Reviewed
-
EKG: Tracing Personally Visualized and interpreted
Radiology: Report Reviewed by me
Labs: Labs Reviewed by me
Old Records: Reviewed
--- NOTE | 2024-09-15 18:49 | W.PN.UPDATE ---
Update Note
Progress Note Update
This is an addendum to the H&P written by Jazzmine Garcia on 09/15/2024.� Patient seen and examined independently with PA.
69-year-old female past medical history of 68-year-old female past medical history of atrial fibrillation on Coumadin, aortic stenosis status post TAVR, HFpEF, COPD, chronic hypoxemic respiratory failure on 4 L, obstructive sleep apnea, pulmonary
hypertension, moderate to severe tricuspid regurgitation, hypertension, hyperlipidemia, anxiety, Raynaud's, meningioma presenting with gradual decline in strength.� Pulse ox was low.� Not compliant with CPAP and medications.
Patient was admitted from 07/20 to 08/08 acute on chronic hypoxic/hypercarbic respiratory failure secondary CHF exacerbation and pulm hypertension.� She was diuresed and developed AIYANA and diuretics were held.� She was also found to have a liver lesion
on CT scan was seen by oncology, interventional radiology and GI.� Outpatient follow-up was recommended.
Vital signs show hypoxemia and patient requiring high flow.
Labs show cardiac BNP of 800 from 688 last time.� ABG shows pH of 7.46, pCO2 41, PO2 of 51.
Chest x-ray shows mild interstitial pulm edema.
Presentation consistent with acute hypoxemic respiratory failure secondary to CHF exacerbation/pulmonary hypertension.� Bumex 3 mg twice daily.� Cardiology consulted.
Check UA due to dark and foul-smelling urine.�
[2024-09-15 20:02] LABS: Urine Albumin 2+ (Neg - Trace); Urine Bilirubin Negative (Negative); Urine Character Slightly Cloudy (Clear); Urine Color Yellow; Urine Glucose 3+ (Negative); Urine Ketone Negative (Negative); Urine Leukocyte 3+ (Negative); Urine Nitrite Negative (Negative); Urine Occult Blood 4+ (Negative); Urine Urobilinogen 2+ (Neg - 1+)
[2024-09-15 20:15] LABS: Urine Bacteria Many (Negative); Urine Red Blood Cell 21-25 /HPF (0-2); Urine White Cell >100 /HPF (0-5)
--- NOTE | 2024-09-15 20:32 | EDRN ---
Attempted to call report, will call back
--- NOTE | 2024-09-15 20:42 | EDRN ---
Report given to Sindi in IMU
[2024-09-15] MEDS: PULMICORT 0.5 MG INH (21:13)
[2024-09-15] MEDS: DUONEB 3 ML INH (21:13)
[2024-09-15] MEDS: KLOR-CON 20 MEQ PO (21:46)
[2024-09-15] MEDS: TOPROL XL 50 MG PO (21:46)
[2024-09-15] MEDS: RESTORIL 15 MG PO (21:47)
[2024-09-15] MEDS: REQUIP 0.25 MG PO (21:47)
[2024-09-15] MEDS: STERILE WATER FOR INJECTION 10 ML IV (21:47)
[2024-09-15] MEDS: NEURONTIN 300 MG PO (21:47)
[2024-09-15] MEDS: ROCEPHIN 1000 MG IV (21:47)
[2024-09-16] VITALS (14 sets, daily range): BP systolic 95–123; BP diastolic 66–82; BMI 50.7
[2024-09-16 04:23] LABS: Hemoglobin 15.7 g/dL (12.0-16.0); Mean Corp Hgb Conc. 33.4 g/dL (33.0-37.0); Mean Corpuscular Hgb 34.5 pg (27.0-31.0); Mean Corpuscular Volume 103.3 fL (81.0-99.0); Mean Platelet Volume 11.6 fL (7.4-10.4); Platelet Count 223 10^3/uL (130-400); Red Blood Cell Count 4.55 10^6/uL (4.20-5.40); Red Cell Dist. Width 19.1 % (11.5-14.5); White Blood Cell Count 5.4 10^3/uL (4.8-10.8)
[2024-09-16 04:29] LABS: INR 2.63; PT 28.1 Sec (11.4-14.6)
[2024-09-16 04:35] LABS: Blood Urea Nitrogen 34 mg/dl (7-17); Calcium 9.7 mg/dl (8.4-10.2); Carbon Dioxide 26 mmol/L (22-30); Chloride 105 mmol/L (98-107); Estimated Creatinine Clearance 68 ml/min; Glucose 126 mg/dl (70-99); Potassium 4.2 mmol/L (3.5-5.1); Sodium 144 mmol/L (135-145); eGFR > 60.00
--- NOTE | 2024-09-16 05:40 | PTCARENOTE ---
recieved patient from ED via stretcher. Patient on HFNC, very hard to get pulse ox reading due to Raynaud. Patient removed HFNC twice last night and stated she wanted to go home. Educated patient on importance of HF. Continuing to monitor.
[2024-09-16 07:36] LABS: Glucose - Point of Care 151 mg/dl (70-99)
--- NOTE | 2024-09-16 07:48 | W.PN.HOSP.TC ---
Today's Communication/Plan
-
Continue diuretics
Hold antibiotics
PT/OT
Wean oxygen as able
Assessment / Plan
Assessment / Plan
Gen-awake, alert, tearful, NAD, morbid obesity
HEENT-NC, AT, anicteric, clear oral mm
Neck-supple
CV-reg, no M, +S1/S2
Lungs-clear B/L
Abd-soft, NT, ND
Ext-bilateral lower extremity edema and rubor
Musculoskeletal-no cyanosis, clubbing
Skin-warm and dry
Neuro-grossly non-focal
Psych-calm, cooperative
Acute on chronic hypoxic respiratory failure -suspect due to acute on chronic heart failure exacerbation with pulmonary edema. Currently on high flow nasal cannula oxygen, wean down as able. Baseline uses 4 L nasal cannula oxygen continuously and
is supposed to be on BiPAP at nighttime. However patient has been noncompliant with home BiPAP.
Acute on chronic heart failure with preserved EF -pulmonary edema noted on chest x-ray. Continue IV Bumex. Patient claims she has been taking her Bumex but notes from the emergency room mention that her mentioned that she has been
noncompliant with diuretics.
Last echocardiogram was 07/21/2024, LVEF 70 to 75%, severe dilated and hypokinetic RV, moderately dilated LA, severely dilated RA, mild MS. Moderate TR. TAVR noted. No AR.
Right heart catheterization done July 31, 2024 showed PCWP 38, PA pressure 76/33. Cardiac index 1.4.
BNP 833.
Weight is up 17 kg since August 08. Denies excessive fluid intake.
Asymptomatic bacteriuria/pyuria -urinalysis noted. Urine culture sent. However, without symptoms cannot officially call this UTI. Hold further antibiotics and observe.
Intrahepatic space-occupying lesion -unclear etiology. Noted on ultrasound and MRI. This was noted during prior hospitalization in August. Decision made at that time not to pursue liver biopsy given need for anticoagulation and her multiple
comorbidities. Recommendation at that time was to follow-up with Dr. Gil of hepatology as an outpatient.
Total bilirubin level has been chronically elevated. Alkaline phosphatase elevation noted.
Persistent atrial fibrillation -continue warfarin. INR therapeutic.
COPD without exacerbation -on chronic oxygen therapy.
DM2 without hyperglycemia -previous hemoglobin A1c 7.4% in July. As an outpatient, she takes metformin, Jardiance.
Glucose 126 this morning. Currently on Farxiga 10 mg daily, low resistance aspart scale.
Essential hypertension -stable.
Hyperlipidemia -atorvastatin.
History of stroke
History of right parietal meningioma
Chronic lower extremity lymphedema
History of pulmonary embolism
Anxiety/depression
Ambulatory dysfunction -uses a walker. Consult PT/OT.
CHAS
Morbid obesity due to excess calories -history of gastric bypass.
DNR
Anticipated Discharge: > 48 hours
Subjective/Interval History
-
Date of Service: September 16, 2024
Patient seen and examined. She is tearful and upset about being in the hospital again. Denies shortness of breath currently. No other complaints.
Objective Data
-
Labs:
Laboratory Results
09/16/24 09/16/24
03:59 04:00
WBC 5.4
Hgb 15.7
Hct 47.0
Plt Count 223
PT 28.1 H
INR 2.63
Sodium 144
Potassium 4.2
Chloride 105
Carbon Dioxide 26
BUN 34 H
Creatinine 1.0
Glucose 126 H
Calcium 9.7
Vital Signs:
Vital Signs
Temp Pulse Resp BP Pulse Ox
98.3 F 85 18 117/74 93
09/16/24 03:00 09/16/24 04:00 09/16/24 04:00 09/16/24 04:00 09/16/24 04:00
I&O
09/15/24 09/16/24 09/17/24
06:59 06:59 06:59
Output Total 500 / 500
Balance -500 / -500
Review of Systems
-
History Source: Patient
All other systems: Reviewed and negative
[2024-09-16] MEDS: PULMICORT 0.5 MG INH ×2 (08:04→19:52)
[2024-09-16] MEDS: DUONEB 3 ML INH ×4 (08:04→19:52)
[2024-09-16 08:17] LABS: Glycohemoglobin (HgbA1c) 7.1 % (4.0-5.6)
[2024-09-16] MEDS: CYMBALTA DELAYED RELEASE 60 MG PO (08:55)
[2024-09-16] MEDS: FARXIGA 10 MG PO (08:55)
[2024-09-16] MEDS: NOVOLOG FLEXPEN-LOW RESISTANCE 1 UNITS SC ×2 (08:55→17:23)
[2024-09-16] MEDS: BUMEX 3 MG IV ×2 (08:56→17:11)
[2024-09-16] MEDS: LIPITOR 10 MG PO (08:56)
[2024-09-16] MEDS: KLOR-CON 20 MEQ PO ×2 (08:56→20:51)
[2024-09-16] MEDS: TOPROL XL 150 MG PO (08:57)
[2024-09-16 09:04] LABS: Direct Bilirubin 1.6 mg/dl (0.0-0.4)
--- NOTE | 2024-09-16 12:03 | PTCARENOTE ---
ongoing challenge for accurate pulse ox readings. Main monitor is reading 88% while Resp therapy hand held device is 96%. Pt with severe Raynauds disease, edema and poor perfusion- continue to monitor closely and handheld device intact for closer
assessment. Pt tearful but does not appear in resp distress. She is talking with her sister at bedside and sister reports she is 'making sense'. Pt has some confused thinking and is anxious for her to return to her room.
[2024-09-16 12:44] LABS: Glucose - Point of Care 132 mg/dl (70-99)
[2024-09-16] MEDS: NOVOLOG FLEXPEN-LOW RESISTANCE SC (13:32)
[2024-09-16] MEDS: LANOXIN 125 MCG PO (13:33)
--- NOTE | 2024-09-16 14:50 | CON.PUL ---
Consultation
Consultation Request
Date/Time Consultation Requested: 09/15/2024 - 2104
Date/Time Consultation Performed: 09/16/2024 - 1129
Requesting Provider: Jazzmine Linda PA-C
Performing Provider: Dr. Meyers
Reason for Consultation: Hypoxia/ADHF
Medical History
-
Chief Complaint: Low oxygen levels/SOB + edema
History of Present Illness:
69-year-old morbidly obese female with a past medical history of chronic HFpEF, aortic stenosis s/p TAVR, pulmonary hypertension, hypertension, CHAS intolerant to CPAP, suspected OHS, reported history of COPD/asthma, chronic hypoxic respiratory
failure, atrial fibrillation/flutter on Coumadin, fibromyalgia, anxiety/depression and Raynaud's phenomenon who presents with low oxygen levels, lower extremity edema and shortness of breath. Patient is been hospitalized 3 times in the past 6
months. She was recently hospitalized from 07/20 - 08/08/2024 due to altered mental status and CHF exacerbation. Right heart catheterization on 07/31/2024 showed combined pre and postcapillary pulmonary hypertension with PCWP 38 mmHg and mPAP of 47
with PVR 3.5 ALBERTO; TP. She was discharged home on Coumadin, Bumex 3 mg once daily, Toprol-XL 50 mg daily in addition to Yupelri once daily + Brovana and budesonide BID. Prior to arrival, she was notably confused, significant hypoxic with SpO2 in
the 40s while on her usual 4 L/min via nasal cannula and has noted increased lower extremity edema. She is also has significant weight gain since her last discharge. CXR showed mild interstitial edema. In the ER she was afebrile to 97.6
�F, pulse rate 91, respiratory rate 18, BP 122/62 and saturating 93% on 4 L/min. She was given 1 mg Bumex in the ER. Blood gas obtained showing PO251 and she was placed onto high flow nasal cannula, and admitted to the IMU for further care.
Pulmonary consulted for additional management/recommendations.
When I saw the patient, she was on high flow nasal cannula at 75%, 50 L minute, with heart rate 97, SpO2 88% and BP 104/69. She was awake, alert and answering questions appropriately. She says she does not feel as short of breath as she did
yesterday. Currently denies chest pain, ROOT, nausea, fevers or chills.
PMHx: Reported history of COPD/asthma, hypertension, hyperlipidemia, DM type II, reported history of CHAS (severe per patient) intolerant to CPAP, aortic stenosis s/p TAVR, anxiety, history of CVA, former tobacco smoker (quit 1999), chronic hypoxic
respiratory failure, chronic HFpEF, paroxysmal A-fib/history of a flutter on Coumadin
PSHx: TAVR (04/2022), D&C, bariatric sleeve (12/2012), left knee replacement (2008), right knee arthroplasty (2013)
Past Medical History
Past Medical History: Other (Above as per HPI)
Past Surgical History: Other (Above as per HPI)
Social History
Tobacco: Former Smoker (Former [id number] history, quit in 1999)
Alcohol: Occasional
Drug: None
Personal:
Living: With Family
Family History
Family History: Reviewed & Not Pertinent
Allergies / Home Medications
Allergies
Allergy/AdvReac Type Severity Reaction Status Date / Time
amoxicillin trihydrate Allergy patient Verified 09/15/24 14:22
[From Augmentin] states
severe
nausea and
intestinal
pain
cat dander Allergy Sinus Verified 09/15/24 14:22
congestion
cigarette smoke Allergy Positive Verified 09/15/24 14:22
skin test
to tobacco
dog dander Allergy Sinus Verified 09/15/24 14:22
congestion
grass pollen Allergy Sinus Verified 09/15/24 14:22
congestion,
cough
levofloxacin [From Levaquin] Allergy GI Symptoms Verified 09/15/24 14:22
mold Allergy Sinus Verified 09/15/24 14:22
congestion,
cough
Sulfa (Sulfonamide Allergy INTESTINAL Verified 09/15/24 14:22
Antibiotics) PAIN
tree and shrub pollen Allergy Sinus Verified 09/15/24 14:22
congestion,
cough
Home Medications
�Medication �Instructions �Recorded �Confirmed �Last Taken �Type
duloxetine 60 mg capsule,delayed 60 mg PO DAILY Mental 01/11/14 09/15/24 09/14/24 History
release Health/Anxiety
atorvastatin 10 mg tablet 10 mg PO DAILY High cholesterol 02/10/22 09/15/24 09/14/24 History
metformin 500 mg tablet 500 mg PO BID Diabetes 02/10/22 09/15/24 09/15/24 History
metoprolol succinate 50 mg 150 mg PO DAILY Blood pressure 02/10/22 09/15/24 09/15/24 History
tablet,extended release 24 hr
revefenacin 175 mcg/3 mL solution 175 mcg inhalation R DAILY 02/10/22 09/15/24 2 Weeks Ago History
for nebulization (Yupelri) Lung/breathing issues ~09/01/24
arformoterol 15 mcg/2 mL solution 2 ml inhalation R BID 04/02/22 09/15/24 14 Days Ago History
for nebulization (Brovana) Lung/breathing issues ~09/01/24
budesonide 0.5 mg/2 mL suspension 0.5 mg inhalation R BID 04/02/22 09/15/24 2 Weeks Ago History
for nebulization Lung/breathing issues ~09/01/24
cyanocobalamin (vitamin B-12) 2,500 mcg sublingual DAILY 04/02/22 09/15/24 09/14/24 History
2,500 mcg sublingual tablet Supplement
(Vitamin B-12)
calcium 500 mg (as 500 mg PO DAILY Supplement 04/08/22 09/15/24 09/14/24 History
carbonate)-vitamin D3 5 mcg (200
unit) tablet (Oyster Shell
Calcium-Vitamin D3)
biotin 10,000 mcg chewable tablet 10,000 mcg PO DAILY Supplement 01/19/24 09/15/24 09/14/24 History
(Hair, Skin and Nails (biotin))
digoxin 125 mcg (0.125 mg) tablet 125 mcg PO SUTUTHSA@0800 Heart 03/03/24 09/15/24 09/14/24 History
Disease/Condition
metoprolol succinate 50 mg 50 mg PO HS Arrhythmia 03/03/24 09/15/24 09/14/24 History
tablet,extended release 24 hr
gabapentin 300 mg capsule 300 mg PO HS Pain 04/29/24 09/15/24 09/14/24 History
gabapentin 300 mg capsule 600 mg PO DAILY@1500 Pain 04/29/24 09/15/24 09/14/24 History
ropinirole 0.25 mg tablet 0.25 mg PO HS Neurological 04/29/24 09/15/24 09/14/24 History
Condition
temazepam 15 mg capsule 15 mg PO HS Sleep 04/29/24 09/15/24 09/14/24 History
therapeutic multivitamin 1 tab PO DAILY Supplement 04/29/24 09/15/24 09/14/24 History
empagliflozin 10 mg tablet 10 mg PO DAILY Diabetes 07/20/24 09/15/24 09/15/24 History
(Jardiance)
bumetanide 1 mg tablet 3 mg (3 x 1 mg) PO DAILY #30 tabs 08/05/24 09/15/24 09/14/24 Rx
6 mg
potassium chloride 20 mEq oral 20 meq PO BID #100 ea 08/05/24 09/15/24 09/14/24 Rx
packet (Klor-Con)
miconazole nitrate 2 % topical 1 applic topical BID folds 09/15/24 09/15/24 Unknown History
powder (Miconazorb AF)
warfarin 2.5 mg tablet (Jantoven) 2 mg PO QPM Blood Clot 09/15/24 09/15/24 09/14/24 History
Prevention/Tx
Review of Systems
-
History Source: Patient
All other systems: Negative unless noted
Vitals / Labs / Diagnostic Testing
Vital Signs
Temp Pulse Resp BP Pulse Ox
97.5 F 94 20 104/79 90
09/16/24 08:10 09/16/24 08:57 09/16/24 08:08 09/16/24 08:57 09/16/24 08:09
Lab Data
09/16/24 04:00
09/16/24 03:59
Laboratory Results
09/15/24 09/15/24 09/16/24
14:58 15:08 03:59
PT 31.9 H 28.1 H
INR 3.11 2.63
pH 7.46 H
pCO2 41 H
pO2 51 L*
HCO3 29.2 H
O2 Delivery Level
Diagnostic Testing:
Physical Exam
-
HEENT: Normocephalic, Anicteric and Other (Thick neck)
Cardiovascular: S1/S2 and Peripheral Edema (+2 lower extremity pitting edema bilaterally)
Respiratory: Wheeze (negative), Rales (Bilaterally), Rhonchi (negative) and Non-Labored Respirations
GI: Soft, Distended (Significant abdominal obesity), Non Tender and Normal Bowel Sounds
Neurology: Awake, Alert and Tremors (negative)
Skin: Warm and Dry
General: Respiratory Distress (negative), Comfortable, Fever (negative) and Chills (negative)
Assessment
-
Assessment: 69-year-old morbidly obese female with a past medical history of chronic HFpEF, aortic stenosis s/p TAVR, pulmonary hypertension, hypertension, CHAS intolerant to CPAP, suspected OHS, reported history of COPD/asthma, chronic hypoxic
respiratory failure, atrial fibrillation/flutter on Coumadin, fibromyalgia, anxiety/depression and Raynaud's phenomenon who presents with low oxygen levels, lower extremity edema and shortness of breath. Patient is been hospitalized 3 times in the
past 6 months. She was recently hospitalized from 07/20 - 08/08/2024 due to altered mental status and CHF exacerbation. Right heart catheterization on 07/31/2024 showed combined pre and postcapillary pulmonary hypertension with PCWP 38 mmHg and mPAP
of 47 with PVR 3.5 ALBERTO; TP. She was discharged home on Coumadin, Bumex 3 mg once daily, Toprol-XL 50 mg daily in addition to Yupelri once daily + Brovana and budesonide BID. Prior to arrival, she was notably confused, significant hypoxic with
SpO2 in the 40s while on her usual 4 L/min via nasal cannula and has noted increased lower extremity edema. She is also has significant weight gain since her last discharge. CXR showed mild interstitial edema. In the ER she was afebrile
to 97.6 �F, pulse rate 91, respiratory rate 18, BP 122/62 and saturating 93% on 4 L/min. She was given 1 mg Bumex in the ER. Blood gas obtained showing PO251 and she was placed onto high flow nasal cannula, and admitted to the IMU for further
care. Pulmonary consulted for additional management/recommendations.
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
1999), chronic hypoxic respiratory failure, chronic HFpEF, paroxysmal A-fib/history of a flutter on Coumadin
Impression:
#Acute on chronic HFpEF likely due to dietary indiscretions with noncompliance to Bumex
#Acute on chronic respiratory failure with hypoxia now requiring high flow nasal cannula
#History of atrial flutter on Coumadin
#Pulmonary hypertension predominantly due to group 2 disease in addition to group 3 (recent RHC on 07/31/2024: PCWP 38 mmHg, mPAP of 47 with PVR 3.5 ALBERTO; TP)
#Severe CHAS intolerant to CPAP with secondary polycythemia
#Suspected obesity hypoventilation syndrome
#History of COPD/asthma
#Paroxysmal A-fib/flutter on Coumadin
#Aortic stenosis s/p TAVR
#History of CVA
#Former tobacco smoker
#Anxiety
Plan:
- Continue diuresis with Bumex 3 mg IV BID
- Trend UOP with strict I/O
- Cardiology following, recommendations appreciated
- No need to repeat echo at this juncture
- Replete electrolytes with K>4, Mg>2
- Continue with other cardiac meds including digoxin, metoprolol and Lipitor
- Maintain SpO2 >88-94% with high flow nasal cannula O2 and wean down FiO2 as tolerated
- Continue with DuoNebs + budesonide
- She endorses nasal stuffiness � start [place] mist nasal spray
- prn nebulized bronchodilators (currently not bronchospastic
- No need for systemic steroids at this time given she is not bronchospastic on exam
- If patient continues to be diuresed and maintains a net negative fluid balance with no improvement in oxygen requirements after 48-72 hours, then would not be unreasonable to start systemic steroids at that time
- Check walking pulse oximetry prior to discharge
- Incentive spirometer encouraged q1hr while awake
- Patient admits to having a history of severe obstructive sleep apnea but is intolerant to CPAP and is not willing to use it during this hospitalization
- She is aware of the risks of CPAP noncompliance with CHAS including risk of arrhythmia, cardiovascular disease, hypertension, pulmonary hypertension, and worsening quality of life
- She also likely has obesity hypoventilation syndrome which carries an even greater risk of pulmonary hypertension compared to CHAS
- Check AM VBG to assess pH and pCO2
- Recommend outpatient consultation with ENT to evaluate her for Inspire device
- Trend H/H and transfuse if needed to keep Hb>7g/dL; keep plt>20k, unless there is concern for bleeding then keep plt>50k
- Maintain euglycemia with goal BG >100 and <180
- DVT ppx � Coumadin with goal INR 2�3
Pulmonary service will continue to follow along. She ultimately will follow-up with her private senior applications analyst, Dr. Smith. If she wishes to transition to us at [facility] then that is her choice. Our information will be left with the patient if she
wishes to transfer her care to us.
Total time spent today was 58 minutes for this encounter. Time includes reviewing laboratory test/imaging results, reviewing pertinent medical records, obtaining and reviewing medical history, performing an appropriate exam, ordering medications,
tests and procedures. Time also includes documentation of this encounter, coordinating patient care and communicating with other healthcare professionals. Total time does not include separately billed tests performed on this date of service.
--- NOTE | 2024-09-16 15:51 | CS.PSYCHR ---
Consult Summary - Psychiatry
-
Psychiatry consultation for depression and anxiety. Chart reviewed. 69 yo female with history of depression and anxiety and extensive medical history as noted below admitted on 09/15 for hypoxia and LE edema. Psychiatry consulted due to concern for
depression and anxiety possibly contributing to medical non compliance and need for repeated admissions. Patient is tearful on interview and states she is depressed. She denies suicidal ideations. She also admits to feeling confused. She knows she
is at [place] only after reading the name on the board in her room. She knows it's 2024 but thinks it's April and time. When I told her it is August/spring, she began crying. Spoke to her and son who state patient has been
intermittently confused at home and caring for her is extremely difficult due to her lack of compliance with recommended medical treatment. We discussed likely periods of delirium and importance of making decisions about her care when she is lucid.
states she appeared well after coming home from rehab two weeks ago but decline thereafter was rapid.
PMH- morbid obesity, chronic heart failure, afib, valvular heart disease, HTN, DM, COPD
Past psych- history of depression and anxiety. currently on cymbalta 60mg daily and Restoril 15mg HS
Social- lives with
D&A- denies
Family history- noncontributory
A/P- 69 yo female with history of unspecified depression and anxiety presenting with significant confusion, likely delirium secondary to her medical condition. Will wait for patient's cognition to clear prior to making decision on adding further
medication for depression to her regimen. Continue Cymbalta and Restoril for now. Recommend case management to discuss options for support with family as is no longer able to properly care for her. Psychiatry will follow up tomorrow.
--- NOTE | 2024-09-16 17:05 | W.PN.CARDCBS ---
Today's Communication / Plan
-
Diuresis
Impression / Plan
-
PCP: Dr. Sanjay Carrera
Primary Mold Shifter: Dr. CHAVA Alejandro
Impression:
Admitted with confusion/metabolic encephalopathy
- similar admission 07/20/24
Acute on chronic hypoxemic respiratory failure
Acute on chronic HFpEF
- BNP 833 (prior admission 1270)
- Reported '40 lb' weight gain since discharge per patient/
- CXR 09/15/24 mild interstitial edema
Admission to [facility] for syncope vs fall 07/10-07/11/24
Persistent AFib, rate controlled
Chronic Coumadin therapy, managed by cardiology
NSVT, 07/21/24
Essential HTN
DM2
h/o TAVR 2021
Severe pulm HTN
COPD, chronically on 3L NC
h/o R post CVA
h/o R parietal meningioma
CHAS: intolerant of CPAP
Hyperlipidemia
Morbid obesity
Chronic lymphedema
History of PE
Uncharacterized liver lesion
Subclinical hyperthyroidism
History of gastric bypass
Depression/anxiety/insomnia with history of serotonin syndrome admission 03/2024
Polypharmacy
History of falls
Echo 07/10/2024: EF 70 to 75%, evidence of RV pressure and volume overload, mild concentric LVH, MAC, mild MS with peak/mean gradients 9/5 mmHg, trace MR, number 29 mm Medtronic Evolut TAVR with peak/mean gradient 6/3 mmHg, moderate to severe TR, PAP
79 mmHg, severely dilated right heart, no significant change compared to prior
Echo 07/21/24:EF 70-75%, dilated RV with RV hypokinesis, mean mitral gradient 5, mild MR, status post Evolut transcatheter aortic valve with mean gradient of 6 and no AI, moderate TR with PA pressure 73
RIGHT HEART CATHETERIZATION Date of Procedure: 07/31/24
Hemodynamics (mmHg):
RA (m) : 21
RV (s/d,m) : 76/10, 18
PA (s/d, m) : 76/33, 48
PCWP (m) : 38
Cardiac Output : 2.9 L/min
Cardiac Index : 1.4 L/min/m-2
Systemic vascular resistance: 21 Wood units or 1684 [id number](-5)
Pulmonary vascular resistance: 3.5 Wood units or 281 [id number](-5)
Recommendations:
-Right-sided heart failure with pulmonary hypertension with evidence of volume overload
-Decompensation secondary to Bumex noncompliance with several missed doses, untreated severe sleep apnea/obesity hypoventilation syndrome and salt indiscretion
-Continue IV Bumex 3 mg twice daily
-Monitor on telemetry, intake/output, daily weights, and renal function
-Persistent AFib, rate controlled /Chronic Coumadin therapy
- Continue coumadin goal INR 2-3 (2.5 m daily)
- No indication for repeat echocardiogram at this current juncture
- Continue beta-giovanni, digoxin;Digital level not elevated
Erythema right leg�concern for cellulitis. Defer to primary
Progress Note - Mold Shifter
Subjective
Date of Service: September 16, 2024
Seen and examined. at bedside. Continues to complain of shortness of breath. Denies chest pain. Overnight no events
Objective
Labs:
09/16/24 04:00
09/16/24 03:59
Labs
Hgb 15.7 g/dL (12.0-16.0) 09/16/24 04:00
Hct 47.0 % (37.0-47.0) 09/16/24 04:00
Plt Count 223 10^3/uL (130-400) 09/16/24 04:00
PT 28.1 Sec (11.4-14.6) H 09/16/24 03:59
INR 2.63 09/16/24 03:59
Sodium 144 mmol/L (135-145) 09/16/24 03:59
Potassium 4.2 mmol/L (3.5-5.1) 09/16/24 03:59
BUN 34 mg/dl (7-17) H 09/16/24 03:59
Creatinine 1.0 mg/dL (0.6-1.0) 09/16/24 03:59
Glucose 126 mg/dl (70-99) H 09/16/24 03:59
Troponins
09/15/24
14:37
Troponin I 0.014
Vital Signs and I&O:
Vital Signs
Temp Pulse Resp BP Pulse Ox
98.2 F 93 20 104/79 97
09/16/24 15:05 09/16/24 15:28 09/16/24 15:28 09/16/24 08:57 09/16/24 15:28
Vital Signs
Temp Pulse Resp BP Pulse Ox
98.2 F 93 20 104/79 97
09/16/24 15:05 09/16/24 15:28 09/16/24 15:28 09/16/24 08:57 09/16/24 15:28
Intake & Output
09/14/24 09/15/24 09/16/24 09/17/24
06:59 06:59 06:59 06:59
Output Total 500 / 500
Balance -500 / -500
Physical Exam
Physical Exam
GEN: No distress, awake, Ox3, sitting on side of bed, morbidly obese
LUNGS: Few scattered crackles at left base otherwise CTA, no wheezes/rales
CV: Irregularly irregular, rate controlled, S1/S2, 1/6 syst murmur
ABD: soft, BS+, NT/ND
EXT: Trace lower extremity edema, skin changes consistent with chronic venous stasis
[2024-09-16] MEDS: NEURONTIN 600 MG PO (17:11)
[2024-09-16] MEDS: COUMADIN 2 MG PO (17:13)
[2024-09-16 17:16] LABS: Glucose - Point of Care 181 mg/dl (70-99)
--- NOTE | 2024-09-16 18:37 | PTCARENOTE ---
Patient's arrives to room this afternoon and he is tearful and asks to speak with attending Dr. expresses that he does not feel he can care for her any longer as she is noncompliant and has become more dependent on physical care.
questions if a hospice intervention is appropriate. Family arrived and all seem to be discussing in calm manner. Plan for now is to continue care and consider nursing rehab or skilled placement if indicated. Pt is tearful and admits to
feeling fearful. Reassurance provided to pt and family
--- NOTE | 2024-09-16 19:29 | PTCARENOTE ---
Patient has HF packet at bedside. Reviewed topics with pt as documented in the education intervention
[2024-09-16] MEDS: NEURONTIN 300 MG PO (20:51)
[2024-09-16] MEDS: REQUIP 0.25 MG PO (20:51)
[2024-09-16] MEDS: TOPROL XL 50 MG PO (20:51)
[2024-09-16] MEDS: RESTORIL 15 MG PO (20:51)
[2024-09-16 21:58] LABS: Glucose - Point of Care 200 mg/dl (70-99)
[2024-09-16] MEDS: OCEAN, SALINE MIST 2 SPRAYS NASAL (23:28)
[2024-09-17] VITALS (17 sets, daily range): BP systolic 93–118; BP diastolic 51–90; PULSE 2–92; BMI 51.3
--- NOTE | 2024-09-17 02:21 | PTCARENOTE ---
Pt received at beginning of shift resting in bed. AAOx3. Tearful at beginning of shift. After emotional support provided pt much better. No anxiety or tears since. Pt has been agreeable to all care provided. Maintaining HF 50L/75% with POX
maintained at 92% spot checked with portable pox machine since pt has severe Raynaud's. Pt denies pain or discomfort. Maintained on Q2hr turns while using foam wedges to pt's left upper side d/t favoring falling towards her left side. Purewick in
place draining delilah urine. Rest of assessment unchanged from beginning of shift. VSS. Afebrile. Afib/PVCs on CM. Bed alarm on and working. Call avitia remains within reach. Will continue to monitor.
--- NOTE | 2024-09-17 02:44 | PTCARENOTE ---
Pt pulling off gown and HF intermittently throughout the shift. 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 At present time pt resting comfortably. Will continue to monitor.
[2024-09-17 03:52] LABS: Venous Blood Gas B.E. 6.5 mmol/L (-4 to +4); Venous Blood Gas HCO3 33.3 mmol/L (22-27); Venous Blood Gas O2 Sat % 85.2 %; Venous Blood Gas pCO2 55 mmHg (35-48); Venous Blood Gas pH 7.39 (7.32-7.43); Venous Blood Gas pO2 55 mmHg (30-50)
[2024-09-17 04:26] LABS: Hematocrit 42.5 % (37.0-47.0); Hemoglobin 14.1 g/dL (12.0-16.0); Mean Corp Hgb Conc. 33.2 g/dL (33.0-37.0); Mean Corpuscular Hgb 34.5 pg (27.0-31.0); Mean Corpuscular Volume 103.9 fL (81.0-99.0); Platelet Count 231 10^3/uL (130-400); Red Blood Cell Count 4.09 10^6/uL (4.20-5.40); Red Cell Dist. Width 19.4 % (11.5-14.5); White Blood Cell Count 5.8 10^3/uL (4.8-10.8)
[2024-09-17 04:31] LABS: INR 3.01; PT 31.1 Sec (11.4-14.6)
[2024-09-17 04:37] LABS: Blood Urea Nitrogen 31 mg/dl (7-17); Calcium 8.8 mg/dl (8.4-10.2); Carbon Dioxide 30 mmol/L (22-30); Chloride 106 mmol/L (98-107); Estimated Creatinine Clearance 75 ml/min; Glucose 127 mg/dl (70-99); Phosphorus 3.8 mg/dl (2.5-4.5); Potassium 4.7 mmol/L (3.5-5.1); Sodium 141 mmol/L (135-145); eGFR > 60.00
--- NOTE | 2024-09-17 07:38 | W.PN.HOSP.TC ---
Today's Communication/Plan
-
Lower extremity compression therapy, Yvon wraps
Lac-Hydrin lotion
Continue diuretics
Assessment / Plan
Assessment / Plan
Gen-awake, alert, NAD, morbid obesity
HEENT-NC, AT, anicteric, clear oral mm
Neck-supple
CV-reg, no M, +S1/S2
Lungs-clear B/L
Abd-soft, NT, ND
Ext-bilateral lower extremity edema and rubor
Musculoskeletal-no cyanosis, clubbing
Skin-warm and dry
Neuro-grossly non-focal
Psych-calm, cooperative
Delirium -due to acute illness, hospitalization, hypoxia, etc.
Continue supportive care. Psychiatry consulted mainly to assist with underlying mental illness and noncompliance with medical care at home. Family is at a roadblock in their ability to take care of this patient and she may need long-term care.
Acute on chronic hypoxic respiratory failure -suspect due to acute on chronic heart failure exacerbation with pulmonary edema. Currently on high flow nasal cannula oxygen, wean down as able. Baseline uses 4 L nasal cannula oxygen continuously and
is supposed to be on BiPAP at nighttime. However patient has been noncompliant with home BiPAP.
Currently on high flow nasal cannula 50 L, 80% FiO2.
Acute on chronic heart failure with preserved EF -pulmonary edema noted on chest x-ray. Continue IV Bumex. Cardiology is following. Patient claims she has been taking her Bumex but notes from the emergency room mention that her mentioned
that she has been noncompliant with diuretics.
Last echocardiogram was 07/21/2024, LVEF 70 to 75%, severe dilated and hypokinetic RV, moderately dilated LA, severely dilated RA, mild MS. Moderate TR. TAVR noted. No AR.
Right heart catheterization done July 31, 2024 showed PCWP 38, PA pressure 76/33. Cardiac index 1.4.
BNP 833.
Weight is up 17 kg since August 08. Denies excessive fluid intake.
Asymptomatic bacteriuria/pyuria -urinalysis noted. Urine culture sent. However, without symptoms cannot officially call this UTI. Hold further antibiotics and observe.
Intrahepatic space-occupying lesion -unclear etiology. Noted on ultrasound and MRI. This was noted during prior hospitalization in August. Decision made at that time not to pursue liver biopsy given need for anticoagulation and her multiple
comorbidities. Recommendation at that time was to follow-up with Dr. Gil of hepatology as an outpatient.
Total bilirubin level has been chronically elevated. Alkaline phosphatase elevation noted.
Persistent atrial fibrillation -continue warfarin. INR therapeutic, 3.0 today.
COPD without exacerbation -on chronic oxygen therapy.
DM2 without hyperglycemia -previous hemoglobin A1c 7.4% in July. As an outpatient, she takes metformin, Jardiance.
Glucose 126 this morning. Currently on Farxiga 10 mg daily, low resistance aspart scale.
Essential hypertension -stable.
Hyperlipidemia -atorvastatin.
History of stroke
History of right parietal meningioma
Chronic bilateral lower extremity lymphedema -this is not cellulitis. Lac-Hydrin lotion and yvon wrap compression therapy ordered. Discussed with nursing.
History of pulmonary embolism
Anxiety/depression
Ambulatory dysfunction -uses a walker. Consult PT/OT.
CHAS
Morbid obesity due to excess calories -history of gastric bypass.
DNR
Anticipated Discharge: > 48 hours
Subjective/Interval History
-
Date of Service: September 17, 2024
Patient seen and examined. No complaints.
Objective Data
-
Labs:
Laboratory Results
09/17/24
03:36
WBC 5.8
Hgb 14.1
Hct 42.5
Plt Count 231
PT 31.1 H
INR 3.01
Sodium 141
Potassium 4.7
Chloride 106
Carbon Dioxide 30
BUN 31 H
Creatinine 0.9
Glucose 127 H
Calcium 8.8
Vital Signs:
Vital Signs
Temp Pulse Resp BP Pulse Ox
97.6 F 86 15 93/75 92
09/17/24 03:07 09/17/24 04:00 09/17/24 04:00 09/17/24 04:00 09/17/24 03:27
I&O
09/16/24 09/17/24 09/18/24
06:59 06:59 06:59
Intake Total 680 / 680
Output Total 500 / 500 1550 / 1550
Balance -500 / -500 -870 / -870
Review of Systems
-
History Source: Patient
All other systems: Reviewed and negative
[2024-09-17] MEDS: DUONEB 3 ML INH ×4 (07:50→20:07)
[2024-09-17] MEDS: PULMICORT 0.5 MG INH ×2 (08:22→20:07)
[2024-09-17 08:27] LABS: Glucose - Point of Care 110 mg/dl (70-99)
[2024-09-17] MEDS: NOVOLOG FLEXPEN-LOW RESISTANCE SC ×3 (08:58→17:07)
[2024-09-17] MEDS: BUMEX 3 MG IV ×2 (08:59→17:06)
[2024-09-17] MEDS: COLACE 100 MG PO ×2 (08:59→21:17)
[2024-09-17] MEDS: CYMBALTA DELAYED RELEASE 60 MG PO (09:00)
[2024-09-17] MEDS: KLOR-CON 20 MEQ PO ×2 (09:00→21:17)
[2024-09-17] MEDS: MIRALAX 17 GRAMS PO (09:00)
[2024-09-17] MEDS: FARXIGA 10 MG PO (09:00)
[2024-09-17] MEDS: LIPITOR 10 MG PO (09:00)
[2024-09-17] MEDS: OCEAN, SALINE MIST 2 SPRAYS NASAL ×3 (09:01→17:08)
[2024-09-17] MEDS: TOPROL XL PO (09:01)
[2024-09-17] MEDS: LAC HYDRIN, AM LACTIN LOTION 1 APPLIC TOPICAL ×2 (09:02→21:18)
--- NOTE | 2024-09-17 11:39 | W.PN.CARDCBS ---
Today's Communication / Plan
-
Continue diuresis; will add metolazone x 1 this afternoon
Overall poor prognosis
Impression / Plan
-
PCP: Dr. Sanjay Carrera
Primary Electrical Lineman: Dr. CHAVA Alejandro
Impression:
Admitted with confusion/metabolic encephalopathy
- similar admission 07/20/24
Acute on chronic hypoxemic respiratory failure
Acute on chronic HFpEF
- BNP 833 (prior admission 1270)
- Reported '40 lb' weight gain since discharge per patient/
- CXR 09/15/24 mild interstitial edema
Admission to [facility] for syncope vs fall 07/10-07/11/24
Persistent AFib, rate controlled
Chronic Coumadin therapy, managed by cardiology
NSVT, 07/21/24
Essential HTN
DM2
h/o TAVR 2021
Severe pulm HTN
COPD, chronically on 3L NC
h/o R post CVA
h/o R parietal meningioma
CHAS: intolerant of CPAP
Hyperlipidemia
Morbid obesity
Chronic lymphedema
History of PE
Uncharacterized liver lesion
Subclinical hyperthyroidism
History of gastric bypass
Depression/anxiety/insomnia with history of serotonin syndrome admission 03/2024
Polypharmacy
History of falls
Echo 07/10/2024: EF 70 to 75%, evidence of RV pressure and volume overload, mild concentric LVH, MAC, mild MS with peak/mean gradients 9/5 mmHg, trace MR, number 29 mm Medtronic Evolut TAVR with peak/mean gradient 6/3 mmHg, moderate to severe TR, PAP
79 mmHg, severely dilated right heart, no significant change compared to prior
Echo 07/21/24:EF 70-75%, dilated RV with RV hypokinesis, mean mitral gradient 5, mild MR, status post Evolut transcatheter aortic valve with mean gradient of 6 and no AI, moderate TR with PA pressure 73
RIGHT HEART CATHETERIZATION Date of Procedure: 07/31/24
Hemodynamics (mmHg):
RA (m) : 21
RV (s/d,m) : 76/10, 18
PA (s/d, m) : 76/33, 48
PCWP (m) : 38
Cardiac Output : 2.9 L/min
Cardiac Index : 1.4 L/min/m-2
Systemic vascular resistance: 21 Wood units or 1684 [id number](-5)
Pulmonary vascular resistance: 3.5 Wood units or 281 [id number](-5)
Recommendations:
-Right-sided heart failure with pulmonary hypertension with evidence of volume overload
-Decompensation secondary to Bumex noncompliance with several missed doses, untreated severe sleep apnea/obesity hypoventilation syndrome and salt indiscretion
-Continue IV Bumex 3 mg twice daily. Will give a dose of Zaroxolyn 2.5 mg before afternoon Bumex
-Monitor on telemetry, intake/output, daily weights, and renal function
-Persistent AFib, rate controlled /Chronic Coumadin therapy
- Continue coumadin goal INR 2-3 (2.5 m daily)- INR today 3.01
- No indication for repeat echocardiogram
- Continue beta-giovanni, digoxin;Digoxin level not elevated
Overall poor prognosis with high risk for readmission. Patient is DNR/DNI and pending clinical course hospice may be appropriate
Progress Note - Electrical Lineman
Subjective
Date of Service: September 17, 2024
Patient was seen and examined sitting out of bed to chair. She was highly emotional after she had a recent conversation with her mother.
Objective
Labs:
09/17/24 03:36
09/17/24 03:36
Labs
Hgb 14.1 g/dL (12.0-16.0) 09/17/24 03:36
Hct 42.5 % (37.0-47.0) 09/17/24 03:36
Plt Count 231 10^3/uL (130-400) 09/17/24 03:36
PT 31.1 Sec (11.4-14.6) H 09/17/24 03:36
INR 3.01 09/17/24 03:36
Sodium 141 mmol/L (135-145) 09/17/24 03:36
Potassium 4.7 mmol/L (3.5-5.1) 09/17/24 03:36
BUN 31 mg/dl (7-17) H 09/17/24 03:36
Creatinine 0.9 mg/dL (0.6-1.0) 09/17/24 03:36
Glucose 127 mg/dl (70-99) H 09/17/24 03:36
Troponins
09/15/24
14:37
Troponin I 0.014
Vital Signs and I&O:
Vital Signs
Temp Pulse Resp BP Pulse Ox
97.6 F 90 17 96 91
09/17/24 03:07 09/17/24 11:29 09/17/24 11:29 09/17/24 09:01 09/17/24 09:08
Vital Signs
Temp Pulse Resp BP Pulse Ox
97.6 F 90 17 96/ 91
09/17/24 03:07 09/17/24 11:29 09/17/24 11:29 09/17/24 09:01 09/17/24 09:08
Intake & Output
09/15/24 09/16/24 09/17/24 09/18/24
06:59 06:59 06:59 06:59
Intake Total 680 / 680
Output Total 500 / 500 1550 / 1550
Balance -500 / -500 -870 / -870
Physical Exam
Physical Exam
GEN: Crying and emotional distress. Sitting out of bed to chair. High flow nasal cannula O2
LUNGS: Bronchovesicular breath sounds with crackles bilaterally. Poor effort
CV: Irregularly irregular, rate controlled, S1/S2, Distant heart sounds
ABD: soft, BS+, NT/ND
EXT: ++ lower extremity edema, skin changes consistent with chronic venous stasis
[2024-09-17 13:42] LABS: Glucose - Point of Care 108 mg/dl (70-99)
[2024-09-17] MEDS: NEURONTIN 600 MG PO (14:08)
[2024-09-17] MEDS: LANOXIN 125 MCG PO (14:08)
[2024-09-17] MEDS: TYLENOL 650 MG PO (14:08)
--- NOTE | 2024-09-17 15:14 | W.PN.UPDATE ---
Update Note
Progress Note Update
Psychiatry follow up for depression and delirium. At this time, patient is markedly more clear than yesterday. She is oriented to person, place, month, year, date, upcoming holiday and her own birthday. When asked if depression could be contributing
to her poor medical compliance at home she says 'that is VERY interesting. I will have to think about that.' We discussed that if depression is a factor that we can treat it by for example adding an augmenting agent to her regimen of Cymbalta and
Restoril. She states she is concerned about adding more medications to an already complicated regimen but would like to give it some thought. Discussed this plan with her as well who remains supportive and eager to break patient's cycle of
repeated medical admissions.
A/P- 69 yo female with history of depression and improving delirium. Patient will consider option of further treating her depression. Psychiatry team will follow up.
--- NOTE | 2024-09-17 15:50 | W.PN.PUL3 ---
Today's Communication / Plan
-
Continue diuresis
Budesonide + DuoNebs
Hold off on steroids at this time
Coumadin with goal INR 2�3
Consult hospice to discuss options available, which the is okay with. Hopefully they can meet with the patient and tomorrow (09/18)
Pulmonary service to continue following along
Assessment
-
Assessment: 69-year-old morbidly obese female with a past medical history of chronic HFpEF, aortic stenosis s/p TAVR, pulmonary hypertension, hypertension, CHAS intolerant to CPAP, suspected OHS, reported history of COPD/asthma, chronic hypoxic
respiratory failure, atrial fibrillation/flutter on Coumadin, fibromyalgia, anxiety/depression and Raynaud's phenomenon who presents with low oxygen levels, lower extremity edema and shortness of breath. Patient is been hospitalized 3 times in the
past 6 months. She was recently hospitalized from 07/20 - 08/08/2024 due to altered mental status and CHF exacerbation. Right heart catheterization on 07/31/2024 showed combined pre and postcapillary pulmonary hypertension with PCWP 38 mmHg and mPAP
of 47 with PVR 3.5 ALBERTO; TP. She was discharged home on Coumadin, Bumex 3 mg once daily, Toprol-XL 50 mg daily in addition to Yupelri once daily + Brovana and budesonide BID. Prior to arrival, she was notably confused, significant hypoxic with
SpO2 in the 40s while on her usual 4 L/min via nasal cannula and has noted increased lower extremity edema. She is also has significant weight gain since her last discharge. CXR showed mild interstitial edema. In the ER she was afebrile
to 97.6 �F, pulse rate 91, respiratory rate 18, BP 122/62 and saturating 93% on 4 L/min. She was given 1 mg Bumex in the ER. Blood gas obtained showing PO251 and she was placed onto high flow nasal cannula, and admitted to the IMU for further
care. Pulmonary consulted for additional management/recommendations.
Chronic conditions COOK SOUP: Reported history of COPD/asthma, hypertension, hyperlipidemia, DM type II, reported history of CHAS (severe per patient) intolerant to CPAP, aortic stenosis s/p TAVR, anxiety, history of CVA, former tobacco smoker (quit
1999), chronic hypoxic respiratory failure, chronic HFpEF, paroxysmal A-fib/history of a flutter on Coumadin
Impression:
#Acute on chronic HFpEF likely due to dietary indiscretions with noncompliance to Bumex
#Acute on chronic respiratory failure with hypoxia now requiring high flow nasal cannula
#History of atrial flutter on Coumadin
#Pulmonary hypertension predominantly due to group 2 disease in addition to group 3 (recent RHC on 07/31/2024: PCWP 38 mmHg, mPAP of 47 with PVR 3.5 ALBERTO; TP)
#Severe CHAS intolerant to CPAP with secondary polycythemia
#Suspected obesity hypoventilation syndrome
#History of COPD/asthma
#Paroxysmal A-fib/flutter on Coumadin
#Aortic stenosis s/p TAVR
#History of CVA
#Former tobacco smoker
#Anxiety
Plan:
- Continue diuresis with Bumex 3 mg IV BID
- Trend UOP with strict I/O
- Cardiology following, recommendations appreciated
- No need to repeat echo at this juncture, per cardiology
- Replete electrolytes with K>4, Mg>2
- Continue with other cardiac meds including digoxin, metoprolol and Lipitor
- Maintain SpO2 >88-94% with high flow nasal cannula O2 and wean down FiO2 as tolerated
- Continue with DuoNebs + budesonide
- She endorses nasal stuffiness � start Woodruff mist nasal spray
- prn nebulized bronchodilators (currently not bronchospastic)
- No need for systemic steroids at this time given she is not bronchospastic on exam
- If patient continues to be diuresed and maintains a net negative fluid balance with no improvement in oxygen requirements after 48-72 hours, then would not be unreasonable to start systemic steroids at that time
- Check walking pulse oximetry prior to discharge
- Incentive spirometer encouraged q1hr while awake
- Patient admits to having a history of severe obstructive sleep apnea but is intolerant to CPAP and is not willing to use it during this hospitalization
- She is aware of the risks of CPAP noncompliance with CHAS including risk of arrhythmia, cardiovascular disease, hypertension, pulmonary hypertension, and worsening quality of life
- She also likely has obesity hypoventilation syndrome which carries an even greater risk of pulmonary hypertension compared to CHAS
- Trend AM VBG to assess pH and pCO2
- If patient survives hospitalization, recommend outpatient consultation with ENT to evaluate her for Inspire device
- Trend H/H and transfuse if needed to keep Hb>7g/dL; keep plt>20k, unless there is concern for bleeding then keep plt>50k
- Maintain euglycemia with goal BG >100 and <180
- DVT ppx � Coumadin with goal INR 2�3
Pulmonary service will continue to follow along. She ultimately will follow-up with her private oracle brm developer, Dr. Smith. If she wishes to transition to us at [facility] then that is her choice. Our information will be left with the patient if she
wishes to transfer her care to us.
Spoke about patient's quality of life with the , Jamaal today. Given that her hospitalizations are recurring, he is amenable with discussing hospice. I will consult case management for hospice and they can discuss this with the patient and
her hopefully tomorrow (09/18). It seems that when the patient is home, she does not want to take her diuretics nor her CPAP, which then slowly deteriorates her until she is hospitalized again.
Total time spent today was 52 minutes for this encounter. Time includes reviewing laboratory test/imaging results, reviewing pertinent medical records, obtaining and reviewing medical history, performing an appropriate exam, ordering medications,
tests and procedures. Time also includes documentation of this encounter, coordinating patient care and communicating with other healthcare professionals. Total time does not include separately billed tests performed on this date of service.
Subjective Data
-
Date of Service:
Date of Service: September 17, 2024
Chief Complaint: Pulmonary Follow Up and Dyspnea Follow Up
Subjective:
Patient seen and evaluated this morning. at bedside (Jamaal). All questions were answered. Patient's heart rate 84, BP 114/90 and saturating 96% on high flow nasal cannula 80% FiO2, 50 L/min. Patient feels better than she did yesterday but
feels tired and still short of breath. She denies chest pain, ROOT, abdominal pain, fevers or chills.
Review of Systems
General: Other (Negative unless mentioned above)
Objective Data
Data Reviewed
Vital Signs / I&O / Oxygen:
Vital Signs
Temp Pulse Resp BP Pulse Ox
97.6 F 79 16 96/66 91
09/17/24 03:07 09/17/24 09:01 09/17/24 09:00 09/17/24 09:01 09/17/24 09:08
Intake and Output
09/16/24 09/17/24 09/18/24
06:59 06:59 06:59
Intake Total 680 / 680
Output Total 500 / 500 1550 / 1550
Balance -500 / -500 -870 / -870
SaO2 91
Nasal Cannula flow liters per 50
minute
Physical Exam
General: Respiratory Distress (negative), Chills (negative) and Sweats (negative)
HEENT: Normocephalic, Anicteric and Other (Thick neck)
Cardiovascular: Murmur (BOUBACAR heard across precordium), Peripheral Edema (+2 lower extremity edema predominantly in the thigh/distal lower extremities) and Other (Normal heart rate)
Respiratory: Wheeze (negative), Crackles (Bilaterally), Rhonchi (negative), Stridor (negative) and Other (Diminished breath sounds bilaterally)
GI: Soft, Distended (Significant abdominal obesity), Non Tender and Normal Bowel Sounds
Neurology: Awake, Alert, Tremors (negative) and Other (Drowsy at time)
Skin: Warm, Dry and Other (Left foot is tender to palpation)
Labs/Micro/Reports
Lab Data
09/17/24 03:36
09/17/24 03:36
Laboratory Results
09/17/24
03:36
PT 31.1 H
INR 3.01
[2024-09-17] MEDS: ZAROXOLYN 2.5 MG PO (16:18)
[2024-09-17] MEDS: MYCOSTATIN CREAM 1 APPLIC TOPICAL ×2 (16:19→21:17)
[2024-09-17] MEDS: COUMADIN 2 MG PO (17:11)
[2024-09-17 17:13] LABS: Glucose - Point of Care 136 mg/dl (70-99)
--- NOTE | 2024-09-17 17:31 | PTCARENOTE ---
pt is obtunded; difficult to arouse. Change in mental status from earlier this afternoon upon waking from a nap. She arouses to vigorous tactile stimulus but falls back to sleep. Hi-deneen nasal canula at 50 L and 70% FiO2. VBG with CO2 [address] Osuna notified. Repeat VBG ordered. Respiratory therapist paged and at bedside. Will place on bipap.
--- NOTE | 2024-09-17 17:47 | PTCARENOTE ---
VBGs drawn. Bipap placed at 15/5 with 8 liters of oxygen. Pox remains at 97%. Pt is opening eyes to name, then falling asleep. Continuing to monitor
[2024-09-17 17:57] LABS: Venous Blood Gas B.E. 6.8 mmol/L (-4 to +4); Venous Blood Gas HCO3 33.4 mmol/L (22-27); Venous Blood Gas O2 Sat % 96.1 %; Venous Blood Gas pCO2 54 mmHg (35-48); Venous Blood Gas pO2 79 mmHg (30-50)
[2024-09-17] MEDS: RESTORIL 15 MG PO (21:16)
[2024-09-17] MEDS: TOPROL XL 50 MG PO (21:16)
[2024-09-17] MEDS: NEURONTIN 300 MG PO (21:16)
[2024-09-17] MEDS: REQUIP 0.25 MG PO (21:17)
[2024-09-17] MEDS: OCEAN, SALINE MIST 1 SPRAYS NASAL (21:22)
--- NOTE | 2024-09-17 22:08 | PTCARENOTE ---
patient very anxious, patient keeps removing HFNC and saying she is going home. Patient attempting to move towards edge of be to leave. Patient threatening to [facility] staff. Patient being very uncooperative. Continuing to monitor. call avitia in reach.
[2024-09-17 22:25] LABS: Glucose - Point of Care 229 mg/dl (70-99)
[2024-09-17] MEDS: ATIVAN 0.25 MG IV (22:30)
[2024-09-18] VITALS (8 sets, daily range): BP systolic 98–131; BP diastolic 46–95; BMI 50.2
--- NOTE | 2024-09-18 00:02 | W.PN.UPDATE ---
Update Note
Progress Note Update
2200 Pt with increased anxiety, taking off HFNC uncooperative with staff threatening to leave and '[facility]' hospital. Small dose iv ativan given for which RN reports positive effects.
--- NOTE | 2024-09-18 02:12 | PTCARENOTE ---
patient desating to 84% on HFNC. TT respiratory therapy and HFNC now at 100%. Patient now sating 99%. continuing to monitor.
[2024-09-18 05:08] LABS: PT 29.9 Sec (11.4-14.6)
[2024-09-18 05:46] LABS: Blood Urea Nitrogen 29 mg/dl (7-17); Calcium 9.4 mg/dl (8.4-10.2); Carbon Dioxide 35 mmol/L (22-30); Chloride 101 mmol/L (98-107); Estimated Creatinine Clearance 75 ml/min; Glucose 131 mg/dl (70-99); Potassium 3.3 mmol/L (3.5-5.1); Sodium 144 mmol/L (135-145); eGFR > 60.00
--- NOTE | 2024-09-18 07:36 | W.PN.HOSP.TC ---
Today's Communication/Plan
-
Comfort Care starting today
Assessment / Plan
Assessment / Plan
Physical Exam
Gen-awake, alert, NAD, morbid obesity
HEENT-NC, AT, anicteric, clear oral mm
Neck-supple
CV-reg, no M, +S1/S2
Lungs-Decreased breath sounds bilaterally
Abd-soft, NT, ND
Ext-bilateral lower extremity edema and rubor
Skin-warm and dry
Neuro-grossly non-focal
Psych-calm, cooperative
Assessment/Plan
Delirium -due to acute illness, hospitalization, hypoxia, etc.
Acute on chronic hypoxic respiratory failure -suspect due to acute on chronic heart failure exacerbation with pulmonary edema.
Acute on chronic heart failure with preserved ejection fraction - pulmonary edema noted on chest x-ray
Asymptomatic bacteriuria/pyuria - urinalysis noted. Urine culture sent. However, without symptoms cannot officially call this UTI. Hold further antibiotics and observe.
Intrahepatic space-occupying lesion
Persistent atrial fibrillation
COPD without exacerbation
DM2
Essential hypertension
Hyperlipidemia
History of stroke
History of right parietal meningioma
Chronic bilateral lower extremity lymphedema
History of pulmonary embolism
Anxiety/depression
Ambulatory dysfunction
CHAS
Morbid obesity due to excess calories -history of gastric bypass.
DNR
I spoke extensively with patient's , patient's son and patient's sister in law, and I also spoke with patient, and they all agree with patient being transitioned today to Comfort Care Management/Hospice. I explained to them that I will stop
all of patient's non-comfort medications, and will start comfort medications and measures, including but not limited to Morphine. They were in agreement with this.
Anticipated Discharge: Within 24 hours
Subjective/Interval History
-
Date of Service: September 18, 2024
Patient was seen and examined. She was agitated overnight, needing additional sedation.
Objective Data
-
Labs:
Laboratory Results
09/18/24
04:34
PT 29.9 H
INR 2.80
Sodium 144
Potassium 3.3 L D
Chloride 101
Carbon Dioxide 35 H
BUN 29 H
Creatinine 0.9
Glucose 131 H
Calcium 9.4
Vital Signs:
Vital Signs
Temp Pulse Resp BP Pulse Ox
97.8 F 81 14 108/71 83
09/18/24 04:10 09/18/24 05:00 09/18/24 05:00 09/18/24 04:00 09/18/24 05:00
I&O
09/17/24 09/18/24 09/19/24
06:59 06:59 06:59
Intake Total 680 / 680 840 / 840
Output Total 1550 / 1550 3225 / 3225
Balance -870 / -870 -2385 / -2385
[2024-09-18] MEDS: DUONEB 3 ML INH ×3 (07:47→14:46)
[2024-09-18] MEDS: PULMICORT 0.5 MG INH (07:47)
[2024-09-18 08:24] LABS: Glucose - Point of Care 117 mg/dl (70-99)
[2024-09-18] MEDS: NOVOLOG FLEXPEN-LOW RESISTANCE SC ×2 (09:04→13:28)
--- NOTE | 2024-09-18 09:09 | W.PN.PUL3 ---
Addendum entered and electronically signed by Harmony Garrett DO 09/18/24 13:09:
Spoke to Jamaal regarding patient's prognosis, which I agree is poor
She has not been compliant wtih treatment and had had progressively declining health in the past few months wtih readmissions
She has hold him in the past what her wishes are and he feels comfortable with honoring them
He was in agreement with hospice discussions and I recommended that she be inpatient and he should start contacting family for visitation
Updated care team
Original Note:
Today's Communication / Plan
-
Remains on HFNC, baseline use of 4L at home, no significant progress
She has chronically ill, cyanotic, deconditioned appearance, I am not sure if empiric steroids would be of any benefit here
She has refused PAP therapy, remains on high risk meds as OP, she is DNR
We reviewed hospice consult, order placed
Prognosis overall seems poor
Assessment
-
69-year-old morbidly obese female with a past medical history of chronic HFpEF, aortic stenosis s/p TAVR, pulmonary hypertension, hypertension, CHAS intolerant to CPAP, suspected OHS, reported history of COPD/asthma, chronic hypoxic respiratory
failure, atrial fibrillation/flutter on Coumadin, fibromyalgia, anxiety/depression and Raynaud's phenomenon who presents with low oxygen levels, lower extremity edema and shortness of breath. Patient is been hospitalized 3 times in the past 6
months. She was recently hospitalized from 07/20 - 08/08/2024 due to altered mental status and CHF exacerbation. Right heart catheterization on 07/31/2024 showed combined pre and postcapillary pulmonary hypertension with PCWP 38 mmHg and mPAP of 47
with PVR 3.5 ALBERTO; TP. She was discharged home on Coumadin, Bumex 3 mg once daily, Toprol-XL 50 mg daily in addition to Yupelri once daily + Brovana and budesonide BID. Prior to arrival, she was notably confused, significant hypoxic with SpO2 in
the 40s while on her usual 4 L/min via nasal cannula and has noted increased lower extremity edema. She is also has significant weight gain since her last discharge. CXR showed mild interstitial edema. In the ER she was afebrile to 97.6
�F, pulse rate 91, respiratory rate 18, BP 122/62 and saturating 93% on 4 L/min. She was given 1 mg Bumex in the ER. Blood gas obtained showing PO251 and she was placed onto high flow nasal cannula, and admitted to the IMU for further care.
Pulmonary consulted for additional management/recommendations.
Acute on chronic HFpEF likely due to dietary indiscretions with noncompliance to Bumex
Acute on chronic respiratory failure with hypoxia now requiring high flow nasal cannula, severe/max settings
Pulmonary hypertension predominantly due to group 2 disease in addition to group 3 (recent RHC on 07/31/2024: PCWP 38 mmHg, mPAP of 47 with PVR 3.5 ALBERTO; TP)
Severe CHAS intolerant to CPAP with secondary polycythemia/chronic hypercarbic respiratory failure (pCO2 54-69), refusing PAP
Suspected obesity hypoventilation syndrome
Cyanotic lips/fingers
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
COPD/asthma
hypertension
hyperlipidemia
DM type II
CHAS (severe per patient) intolerant to CPAP
Aortic stenosis s/p TAVR
anxiety
history of CVA
Former tobacco smoker (quit 1999),
Chronic hypoxic respiratory failure
Chronic HFpEF
Paroxysmal A-fib/history of a flutter on Coumadin
Plan:
Remains on HFNC, 100%/50LPM, no significant improvements
She notes baseline use of 4L continuously at home
Maintain SpO2 >88-94% with high flow nasal cannula O2 and wean down FiO2 as tolerated
Continue with DuoNebs + budesonide
Incentive spirometer encouraged q1hr while awake
Does not get OOB daily
COPD -- resume OP meds
Not wheezing on exam/cyanotic appearance
I am not sure if empiric steroids will add any benefit here
Continue diuresis with Bumex 3 mg IV BID
Trend UOP with strict I/O
Cardiology following, recommendations appreciated
No need to repeat echo at this juncture, per cardiology
Replete electrolytes with K>4, Mg>2
Continue with other cardiac meds including digoxin, metoprolol and Lipitor
Patient admits to having a history of severe obstructive sleep apnea but is intolerant to CPAP and is not willing to use it during this hospitalization
She is aware of the risks of CPAP noncompliance with CHAS including risk of arrhythmia, cardiovascular disease, hypertension, pulmonary hypertension, and worsening quality of life
She also likely has obesity hypoventilation syndrome which carries an even greater risk of pulmonary hypertension compared to CHAS
She has declined PAP treatment during this hospitalization
She is taking temazepam for insomnia, related to untreated CHAS--do not think this is beneficial and adds to risk of OHS
Trend AM VBG to assess pH and pCO2, can use ETCO2 if needed
She is a DNR
Trend H/H and transfuse if needed to keep Hb>7g/dL; keep plt>20k, unless there is concern for bleeding then keep plt>50k
Maintain euglycemia with goal BG >100 and <180
DVT ppx � Coumadin with goal INR 2�3
PT/OT, OOB
Ambulation as tolerated
Pulmonary service will continue to follow along. She ultimately will follow-up with her private business analytics analyst, Dr. Smith.
Family Discussions
Gerry 09/18/24- Spoke with patient at bedside this AM about hospice. She has not been making significant progress and likely will not. She seemed agreeable to meeting, consult placed.
Luigi- Spoke about patient's quality of life with the , Jamaal today. Given that her hospitalizations are recurring, he is amenable with discussing hospice. I will consult case management for hospice and they can discuss this with the
patient and her hopefully tomorrow (09/18). It seems that when the patient is home, she does not want to take her diuretics nor her CPAP, which then slowly deteriorates her until she is hospitalized again.
Diagnostic Data
Total time spent today was 52 minutes for this encounter. Time includes reviewing laboratory test/imaging results, reviewing pertinent medical records, obtaining and reviewing medical history, performing an appropriate exam, ordering medications,
tests and procedures. Time also includes documentation of this encounter, coordinating patient care and communicating with other healthcare professionals. Total time does not include separately billed tests performed on this date of service.
Subjective Data
-
Date of Service:
Date of Service: September 18, 2024
Chief Complaint: Pulmonary Follow Up and Dyspnea Follow Up
Subjective:
Remains on HFNC-max settings, sat in 80s with conversation
Lips and fingertips with cyanotic appearance
Appears SOB, laying in bed
Deconditioned
Objective Data
Data Reviewed
Vital Signs / I&O / Oxygen:
Vital Signs
Temp Pulse Resp BP Pulse Ox
97.7 F 87 16 108/71 95
09/18/24 07:41 09/18/24 07:50 09/18/24 07:50 09/18/24 04:00 09/18/24 07:51
Intake and Output
09/17/24 09/18/24 09/19/24
06:59 06:59 06:59
Intake Total 680 / 680 840 / 840
Output Total 1550 / 1550 3225 / 3225
Balance -870 / -870 -2385 / -2385
SaO2 95
Nasal Cannula flow liters per 50
minute
Physical Exam
General: Respiratory Distress (negative), Chills (negative), Sweats (negative) and Other (ill appearing, deconditioned, obese)
HEENT: Normocephalic, Anicteric and Other (Thick neck)
Cardiovascular: S1-S2, Regular Rhythm, Murmur (BOUBACAR heard across precordium) and Peripheral Edema (+2 lower extremity edema predominantly in the thigh/distal lower extremities)
Respiratory: Wheeze (negative), Crackles (Bilaterally), Rhonchi (negative), Stridor (negative) and Other (Overall diminished breath sounds bilaterally)
GI: Soft, Distended (Significant abdominal obesity), Non Tender and Normal Bowel Sounds
Neurology: Awake, Alert, Oriented, Tremors (negative) and Other (Drowsy at time)
Skin: Warm, Dry and Cyanosis (fingertips and lips)
Labs/Micro/Reports
Lab Data
09/17/24 03:36
09/18/24 04:34
Laboratory Results
09/18/24
04:34
PT 29.9 H
INR 2.80
Microbiology
09/15/24 19:50 Urine Urine Culture - Preliminary
Gram negative bacilli
--- NOTE | 2024-09-18 09:45 | WOUNDNOTE ---
L KNEE (MEDIAL ANTERIOR)
--- NOTE | 2024-09-18 09:45 | WOUNDNOTE ---
R CALF (UPPER ANTERIOR LATERAL)
--- NOTE | 2024-09-18 09:46 | CM ---
Patient with Dx HF. Seen by Psychiatry for depression and delirium. HFNC. Receiving IV Bumex. Per nurse; confused, forgetful.
Spoke with patient's Jamaal;
the patient resides with her in a 2 story house with 2 CHAD and first floor setup.
The patient returned home from [facility] about 2 weeks after short term rehab, and her mobility & mentation declined since then.
The patient has been intermittently oriented and having hallucinations.
She was assisted for ADLs, sleeping in a recliner and had to be carried by to the bathroom.
She was eating however wanted pizza instead of healthy food he had prepared.
Jamaal states that his was 'totally noncompliant' with home O2, NIV, nebulizer, breathing exercises, meds, diet, PT exercises with VN. He states she was 'not thinking clearly' and had some hallucinations.
DME - Home O2 4L, NIV, nebulizer, RW, SPC, w/c
Current with VN for SN/PT/SW
Prior [facility]
PCP - Dr Sanjay Coreas
Pharmacy - [facility]
CM Consult: Hospice
Explained hospice philosophy and benefits.
is aware patient is on high flow O2 and he intends to come in to hospital later this morning.
agreeable to speaking with Hospice.
intends to speak to his son in [place] about how patient is doing.
interested in hospice saying that the patient told him she 'doesn't want to live the way she is right now', however he is still concerned she will decline hospice.
Referral to [facility].
Plan follow up after seen by Hospice
--- NOTE | 2024-09-18 09:49 | WOUNDNOTE ---
WO RN note: Patient admitted with CHF, hypoxia.
See H&P for complete history.
PMH: respiratory failure, CHF, a fib, valvular disease, TAVR, HTN, COPD, obesity, ASCVD/CVA, pulmonary HTN, CHAS, PE, fibromyalgia, anxiety/depression, Raynaud's, bilateral TKA, gastric sleeve, former smoker.
Wound Location and type/assessment: Patient admitted with: sacral MASD, abdominal fold MASD, L elbow small scabbed abrasions, L lower anterior thigh serous filled blister. R upper anterior lateral calf dry abraded skin. Heels blanchable red. +Pedal
pulses. Trace LE edema.
Appetite: good.
Pressure redistribution devices in place: Zoeticxlla Max air bed. Air chair cushion. Patient assists with turning. Turns better to her R.
Plan: Protective silicone foam applied to facial cheeks under high flow o2 strap and also on o2 strap over ears. Silicone border foam applied to L elbow abrasions and L thigh blister. Bilateral knee high Yvon wraps applied with help from [facility].
t/c SPD and order bariatric air chair cushion.
Care plan to be updated. Will sign off. Call if needed.
Note to case management requested for discharge: VN if goes home. Air mattress recommended.
[2024-09-18] MEDS: KLOR-CON 20 MEQ PO ×2 (09:50)
[2024-09-18] MEDS: COLACE 100 MG PO (09:51)
[2024-09-18] MEDS: MYCOSTATIN CREAM 1 APPLIC TOPICAL (09:51)
[2024-09-18] MEDS: BUMEX 3 MG IV (09:51)
[2024-09-18] MEDS: FARXIGA 10 MG PO (09:51)
[2024-09-18] MEDS: LIPITOR 10 MG PO (09:51)
[2024-09-18] MEDS: MIRALAX 17 GRAMS PO (09:51)
[2024-09-18] MEDS: CYMBALTA DELAYED RELEASE 60 MG PO (09:51)
[2024-09-18] MEDS: LAC HYDRIN, AM LACTIN LOTION 1 APPLIC TOPICAL (09:52)
[2024-09-18] MEDS: OCEAN, SALINE MIST 2 SPRAYS NASAL ×2 (09:52→14:25)
[2024-09-18] MEDS: TOPROL XL PO (10:38)
--- NOTE | 2024-09-18 10:38 | W.PN.CARDCBS ---
Today's Communication / Plan
-
Continue diuresis efforts and we will try to give another dose of metolazone once potassium is repleted
Appreciate pulmonary input
Long-term prognosis poor with high risk of readmission
Hospice consult planned today
Impression / Plan
-
PCP: Dr. Sanjay Carrera
Primary Neurosurgery Spine Physician: Dr. CHAVA Alejandro
Impression:
Admitted with confusion/metabolic encephalopathy
- similar admission 07/20/24
Acute on chronic hypoxemic respiratory failure
Acute on chronic HFpEF
- BNP 833 (prior admission 1270)
- Reported '40 lb' weight gain since discharge per patient/
- CXR 09/15/24 mild interstitial edema
Admission to [facility] for syncope vs fall 07/10-07/11/24
Persistent AFib, rate controlled
Chronic Coumadin therapy, managed by cardiology
NSVT, 07/21/24
Essential HTN
DM2
h/o TAVR 2021
Severe pulm HTN
COPD, chronically on 3L NC
h/o R post CVA
h/o R parietal meningioma
CHAS: intolerant of CPAP
Hyperlipidemia
Morbid obesity
Chronic lymphedema
History of PE
Uncharacterized liver lesion
Subclinical hyperthyroidism
History of gastric bypass
Depression/anxiety/insomnia with history of serotonin syndrome admission 03/2024
Polypharmacy
History of falls
Echo 07/10/2024: EF 70 to 75%, evidence of RV pressure and volume overload, mild concentric LVH, MAC, mild MS with peak/mean gradients 9/5 mmHg, trace MR, number 29 mm Medtronic Evolut TAVR with peak/mean gradient 6/3 mmHg, moderate to severe TR, PAP
79 mmHg, severely dilated right heart, no significant change compared to prior
Echo 07/21/24:EF 70-75%, dilated RV with RV hypokinesis, mean mitral gradient 5, mild MR, status post Evolut transcatheter aortic valve with mean gradient of 6 and no AI, moderate TR with PA pressure 73
RIGHT HEART CATHETERIZATION Date of Procedure: 07/31/24
Hemodynamics (mmHg):
RA (m) : 21
RV (s/d,m) : 76/10, 18
PA (s/d, m) : 76/33, 48
PCWP (m) : 38
Cardiac Output : 2.9 L/min
Cardiac Index : 1.4 L/min/m-2
Systemic vascular resistance: 21 Wood units or 1684 [id number](-5)
Pulmonary vascular resistance: 3.5 Wood units or 281 [id number](-5)
Recommendations:
-Right-sided heart failure with pulmonary hypertension with evidence of volume overload
-Decompensation secondary to Bumex noncompliance with several missed doses, untreated severe sleep apnea/obesity hypoventilation syndrome and salt indiscretion
-Continue IV Bumex 3 mg twice daily.
-Responded well to metolazone 2.5 mg yesterday and will give another dose before this evening's Bumex once potassium has been repleted
-Potassium repleted this morning by primary service and will repeat potassium this afternoon.
-Keep K greater than 4, mag greater than 2
-Monitor on telemetry, intake/output, daily weights, and renal function
-Persistent AFib, rate controlled /Chronic Coumadin therapy
- Continue coumadin goal INR 2-3 (2.5 m daily)- INR today 2.8
- No indication for repeat echocardiogram
- Continue beta-giovanni, digoxin;Digoxin level not elevated
Overall poor prognosis with high risk for readmission. Patient is DNR/DNI; hospice consult pending
Progress Note - Neurosurgery Spine Physician
Subjective
Date of Service: September 18, 2024
Patient seen and examined. This morning calm and states that she feels better with less shortness of breath.
Objective
Labs:
09/17/24 03:36
09/18/24 04:34
Labs
Hgb 14.1 g/dL (12.0-16.0) 09/17/24 03:36
Hct 42.5 % (37.0-47.0) 09/17/24 03:36
Plt Count 231 10^3/uL (130-400) 09/17/24 03:36
PT 29.9 Sec (11.4-14.6) H 09/18/24 04:34
INR 2.80 09/18/24 04:34
Sodium 144 mmol/L (135-145) 09/18/24 04:34
Potassium 3.3 mmol/L (3.5-5.1) L D 09/18/24 04:34
BUN 29 mg/dl (7-17) H 09/18/24 04:34
Creatinine 0.9 mg/dL (0.6-1.0) 09/18/24 04:34
Glucose 131 mg/dl (70-99) H 09/18/24 04:34
Troponins
09/15/24
14:37
Troponin I 0.014
Vital Signs and I&O:
Vital Signs
Temp Pulse Resp BP Pulse Ox
97.7 F 95 14 107/87 93
09/18/24 07:41 09/18/24 10:00 09/18/24 10:00 09/18/24 10:00 09/18/24 10:00
Vital Signs
Temp Pulse Resp BP Pulse Ox
97.7 F 95 14 107/87 93
09/18/24 07:41 09/18/24 10:00 09/18/24 10:00 09/18/24 10:00 09/18/24 10:00
Intake & Output
09/16/24 09/17/24 09/18/24 09/19/24
06:59 06:59 06:59 06:59
Intake Total 680 / 680 840 / 840
Output Total 500 / 500 1550 / 1550 3225 / 3225
Balance -500 / -500 -870 / -870 -2385 / -2385
Physical Exam
Physical Exam
GEN: NAD, awake alert and oriented x 3, calm. high flow nasal cannula O2
LUNGS: Bronchovesicular breath sounds with crackles bilaterally. Poor effort
CV: Irregularly irregular, rate controlled, S1/S2, Distant heart sounds
ABD: soft, BS+, NT/ND
EXT: Discoloration to toes with legs bilaterally wrapped with Yvon bandages. Positive edema
--- NOTE | 2024-09-18 11:03 | HOSPNOTE ---
Referral received. Spoke to spouse Jamaal who reports he is in the hospital presently. [facility] to meet him within the hour to review hospice. More information to follow. CM updated.
[2024-09-18 11:57] LABS: Glucose - Point of Care 154 mg/dl (70-99)
--- NOTE | 2024-09-18 12:56 | HOSPNOTE ---
Addendum entered by [facility] RN 09/18/24 15:26:
Family in agreement with comfort measures and started on a drip, emotional support provided. I believe patient will pass quickly. We will continue to follow and support.
Original Note:
Met with family and discussed hospice and the philosophy and patient will need inpatient when decisions are made. Spouse will call me later today. Attending aware.
--- NOTE | 2024-09-18 13:34 | PTCARENOTE ---
Assumed care of patient at beginning of this shift with high flow at 50L/100%. Several times throughout the morning POx dropped to 60s; patient readjusted and oxygen tubing readjusted, POx 88-93%. Patient's lips became dusky when POx dropped. Dr Andrews"Harris in room earlier and aware; she consulted hospice and spoke with both patient and . Dr Hammond had entered order for repeat BMP but instructed to hold off at this time until decision made regarding hospice.
and patient's sister met with hospital coordinator. No decision made initially, but now requesting to see hospice nurse to transition patient. TT sent to [facility]; also sent to group text with Dr Hammond, Dr Garrett and Dr Echavarria.
--- NOTE | 2024-09-18 14:10 | W.PN.UPDATE ---
Update Note
Progress Note Update
Pt seen, chart reviewed. Pt resting in bed, alert, oriented, making eye contact, answering questions. Affect dysphoric/appropriate, mood sad- talking about how she wants to be there for her 3 grandsons, is conflicted about treatment
decisions/considering Hospice. Pt states she discussed it with her last night; she is willing to meet with the team. Pt remains ambivalent about adding any new medication for depression.
Imp: Unspecified Depression; Delirium- resolving. Capacity to make medical decisions appears intact today
Rec: continue current dose of Cymbalta, Temazepam. Will follow
[2024-09-18] MEDS: ATIVAN 0.5 MG IV (15:45)
[2024-09-18] MEDS: NSS (PRESERVATIVE FREE) 0.25 ML IV (15:45)
[2024-09-18] MEDS: MORPHINE SULFATE 2 MG IV ×7 (15:46→23:48)
--- NOTE | 2024-09-18 16:26 | PTCARENOTE ---
Patient given morphine and ativan IV for SOB and anxiety. Symptoms managed at this time. Family remains at bedside and declined repositioning. Patient sleeping.
--- NOTE | 2024-09-18 16:43 | PTCARENOTE ---
Respiratory therapist in room and decreased oxygen to 40L/60%.
--- NOTE | 2024-09-18 18:13 | PTCARENOTE ---
Addendum entered by Haleigh Kaur RN 09/18/24 18:16:
Pharmacist notified via TT that patient received 3rd dose of morphine and will most likely need infusion within next hour or 2.
Updated patient's . Family remains at bedside.
Original Note:
On reassessment after 2nd morphine given patient still rated a 4 for HR, RR and movement. Patient not due for next dose until 18:32. Discussed with Dr Hammond via TT; ok to give 3rd dose of morphine early. 3rd dose of morphine given at 18:09.
TT sent to respiratory therapist to change patient to midflow.
--- NOTE | 2024-09-18 18:38 | RESPNOTE ---
Patient is taken off of high flow and is placed on 14 liters mfnc, per family request
[2024-09-18] MEDS: MORPHINE 100 IV (19:22)
--- NOTE | 2024-09-18 19:32 | PTCARENOTE ---
Morphine drip started; family at bedside. Patient now on midflow. Report given to oncoming nurse.
--- NOTE | 2024-09-18 20:53 | PTCARENOTE ---
received patient on comfort measures, on morphine gtt at 2mg/hr at this time. Patient is comfortable, this RN repositioned and boosted patient in bed. Patient does not appear to be in any distress. family at bedside. will continue to monitor and
follow morphine protocol for patient.
[2024-09-19] MEDS: MORPHINE SULFATE 4 MG IV ×4 (00:47→05:44)
--- NOTE | 2024-09-19 07:21 | PTCARENOTE ---
Assumed care of patient at beginning of this shift from previous RN with morphine step adjusted during change of shift rounds. Currently on step 4 with morphine infusing at 6mg/hr. Oxygen turned down from 8L to 6L during rounds. Family remains at
bedside.
[2024-09-19] MEDS: NSS (PRESERVATIVE FREE) 0.5 ML IV (08:03)
[2024-09-19] MEDS: ATIVAN 1 MG IV (08:03)
--- NOTE | 2024-09-19 08:07 | PTCARENOTE ---
Patient's HR 112-119 after increase of morphine drip. Ativan given at this time. Discussed with family. Will assess effectiveness.
--- NOTE | 2024-09-19 09:14 | W.PN.UPDATE ---
Update Note
Progress Note Update
Patient is now comfort measures
We will sign off at this time, please call with questions
[2024-09-19] MEDS: MORPHINE SULFATE 6 MG IV (09:17)
--- NOTE | 2024-09-19 09:33 | PTCARENOTE ---
HR still elevated after ativan given. Morphine prn dose given as per order; see MAR for score.
--- NOTE | 2024-09-19 10:19 | PTCARENOTE ---
Family met with power cleaner operator. Oxygen removed. HR currently 60s-70. Family remains at bedside. Step 4 maintained.
--- NOTE | 2024-09-19 10:56 | W.PN.UPDATE ---
Update Note
Progress Note Update
Pt placed on comfort measures, routine medications stopped, except morphine. Has prn Haldol and Ativan, noted to be calm/in no distress this morning.
Psychiatry will sign off.
--- NOTE | 2024-09-19 12:55 | PTCARENOTE ---
Patient's HR dropped to the 20s with no respirations, then at 12:55 HR 0 on the monitor. [facility] and this nurse in to see family. Dr Hammond up to pronounce patient. Much support provided to family.
--- NOTE | 2024-09-19 13:34 | W.PN.HOSP.TC ---
Today's Communication/Plan
-
See below
Assessment / Plan
Assessment / Plan
Physical Exam
Gen-awake, alert, NAD, morbid obesity
HEENT-NC, AT, anicteric, clear oral mm
Neck-supple
CV-reg, no M, +S1/S2
Lungs-Decreased breath sounds bilaterally
Abd-soft, NT, ND
Ext-bilateral lower extremity edema and rubor
Skin-warm and dry
Neuro-grossly non-focal
Psych-calm, cooperative
Assessment/Plan
Delirium -due to acute illness, hospitalization, hypoxia, etc.
Acute on chronic hypoxic respiratory failure -suspect due to acute on chronic heart failure exacerbation with pulmonary edema.
Acute on chronic heart failure with preserved ejection fraction - pulmonary edema noted on chest x-ray
Asymptomatic bacteriuria/pyuria - urinalysis noted. Urine culture sent. However, without symptoms cannot officially call this UTI. Hold further antibiotics and observe.
Intrahepatic space-occupying lesion
Persistent atrial fibrillation
COPD without exacerbation
DM2
Essential hypertension
Hyperlipidemia
History of stroke
History of right parietal meningioma
Chronic bilateral lower extremity lymphedema
History of pulmonary embolism
Anxiety/depression
Ambulatory dysfunction
CHAS
Morbid obesity due to excess calories -history of gastric bypass.
DNR
-Comfort care, was maintained on Morphine Drip
-Patient this afternoon, please see separate Note
Anticipated Discharge: Today
Subjective/Interval History
-
Date of Service: September 19, 2024
Patient was seen and examined. She was breathing comfortably earlier in the morning.
Objective Data
-
Vital Signs:
Vital Signs
Temp Pulse Resp BP Pulse Ox
98.8 F 76 11 116/86 47
09/18/24 23:08 09/19/24 12:00 09/19/24 12:00 09/18/24 23:26 09/19/24 06:00
I&O
09/18/24 09/19/24 09/20/24
06:59 06:59 06:59
Intake Total 840 / 840
Output Total 3225 / 3225 2500 / 2500
Balance -2385 / -2385 -2500 / -2500
--- NOTE | 2024-09-19 13:38 | W.PN.DEATH ---
Pronouncement of
-
Called to see patient to pronounce.
No spontaneous heart tones or respirations noted.
Patient not responsive to verbal stimuli.
Patient is pronounced .
Time of : 13:12
Date of : 09/19/24
Cause of : Acute on Chronic Hypoxemic Respiratory Failure
Family Notified: Yes
--- NOTE | 2024-09-19 13:40 | W.DCSUMMARY ---
Discharge Summary
Discharge Data
Date of Admission: 09/15/24
Date of Discharge: 09/19/24
Total time spent discharging patient (in min): 45
-
Pending Results: No
Hospital Course
69 y/o female with an extensive past medical medical history including chronic hypoxic respiratory failure, chronic heart failure with history of hospitalization for heart failure, recent hospitalization for acute on chronic hypoxic/hypercarbic
respiratory failure secondary CHF exacerbation and pulmonary hypertension, atrial fibrillation, valvular heart disease, hypertension, diabetes, COPD and morbid obesity who presented with hypoxia and lower extremity edema. Patient was admitted to IMU
and started on high flow oxygen. Patient was placed on intravenous diuresis (and also received Metolazone) and cardiology was consulted. Pulmonary physician was also consulted. Psychiatry was consulted due to concern for depression and anxiety
possibly contributing to outpatient medical non compliance and need for repeated admissions to the hospital. Patient was initially noted to have significant confusion, which was thought to likely be delirium secondary to her medical condition.
Patient's confusion later improved with continued treatment of her heart failure. Patient received breathing treatments. It was noted by all the physicians involved in the patient's case that patient's prognosis was poor and comfort care/hospice
would be appropriate. After discussions with patient and family, shared decision making was made to transition patient to comfort care/hospice. Patient on September 19, 2024.
Discharge Plan
-
Patient Disposition:
Date/Time
Date/Time: 09/19/24 13:12
Discharge Date and Time
Discharge Date/Time: 09/19/24 15:37
Print Language: AMHARIC
--- NOTE | 2024-09-19 15:06 | PTCARENOTE ---
This nurse called [facility] and spoke with Flor eWllington at [facility]. He stated that patient was possible for corneas. He also stated that patient may be sent to the morgue but do not release to the home until he follows up. Name of patient's
provided as well as address and phone number as stated in the chart. He stated that he will make the calls to contact [facility]. [facility] nursing specialty manufacturing supervisor made aware of all and told security agent who was on unit that patient is not to be released.
placed note on chart to not release patient until notified by [facility].
--- NOTE | 2024-09-19 16:34 | CM ---
Notifed by [facility] that patient had . [facility] and nurse were at bedside and had met with family.
== END 2024-09-19 15:37 | disposition expired | DRG 291 ==
LOC: IMU 19:01
PROVIDERS: Nurse Practitioner; Physician Assistant Medical; ADMITTING PHYSICIAN Hospitalist; ATTENDING PHYSICIAN Hospitalist; CONSULT PHYSICIAN Internal Medicine Cardiovascular Disease; CONSULT PHYSICIAN Internal Medicine Critical Care Medicine; EMERGENCY PHYSICIAN Emergency Medicine; FAMILY PHYSICIAN Family Medicine
PROC: 5A09357 Assistance with Respiratory Ventilation, Less than 24 Consecutive Hours, Continuous Positive Airway Pressure (ICD-10-PCS; 2024-09-17)
DX: I11.0 Hypertensive heart disease with heart failure (principal); G93.41 Metabolic encephalopathy; I50.33 Acute on chronic diastolic (congestive) heart failure; J96.21 Acute and chronic respiratory failure with hypoxia; I48.19 Other persistent atrial fibrillation; Z68.43 Body mass index [BMI] 50.0-59.9, adult; E78.00 Pure hypercholesterolemia, unspecified; M79.7 Fibromyalgia; I27.20 Pulmonary hypertension, unspecified; E66.01 Morbid (severe) obesity due to excess calories; F41.1 Generalized anxiety disorder; F32.A Depression, unspecified; J44.89 Other specified chronic obstructive pulmonary disease; E11.9 Type 2 diabetes mellitus without complications; G47.33 Obstructive sleep apnea (adult) (pediatric); G47.00 Insomnia, unspecified; R82.71 Bacteriuria; R82.81 Pyuria; Z66 Do not resuscitate; Z79.01 Long term (current) use of anticoagulants; Z79.899 Other long term (current) drug therapy; Z86.711 Personal history of pulmonary embolism; Z86.73 Personal history of transient ischemic attack (TIA), and cerebral infarction without residual deficits; Z87.891 Personal history of nicotine dependence; Z91.199 Patient's noncompliance with other medical treatment and regimen due to unspecified reason; Z95.2 Presence of prosthetic heart valve; Z51.5 Encounter for palliative care; Z96.653 Presence of artificial knee joint, bilateral
CPT/HCPCS: 71045; 80048; 80053; 81003; 81015; 82248; 82805; 82962; 83036; 83735; 83880; 84100; 84484; 85025; 85027; 85610; 87077; 87086; 87186; 93005; 94640; 94660; 96374; 97163; 97167; 99285